=== PATIENT | female | born 1985 | race Caucasian/White ===

== ENCOUNTER 2020-01-19 09:41 | Emergency (ER) | payer OTHER, SELFPAY ==
--- NOTE | ~2020-01-19 | XR_ITS ---
EXAMINATION: XR ankle RT min 3V DATE: 01/19/2020 10:14 INDICATION: Right ankle pain and swelling. TECHNIQUE: 4 views of right ankle were obtained. COMPARISON: None. FINDINGS: Bone alignment is normal. No fracture. There is mild midfoot osteoarthritis. There are enth esophytes at the posterior and plantar aspects of calcaneal tuberosity. There is heterotopic ossifica tion in the plantar fascia. There is ankle soft tissue swelling. IMPRESSION: 1. No fracture. Reviewed, dictated and finalized at location A. IMPRESSION: 1. No fracture.
[2020-01-19 09:52] VITALS: BP 140/83; PULSE 88; RESP 16; TEMP 36.4; O2SAT 96
--- NOTE | 2020-01-19 10:49 | ED.LOWEXIN ---
HPI - Extremity Injury (Lower) General Chief Complaint: Extremity Injury, Lower Stated Complaint: Ankle hurts/swollen Time Seen by Provider: 01/19/20 10:49 Source: patient History of Present Illness HPI Narrative: Patient presents with right ankle and foot pain. Patient denies any injury. Slight swelling to ankle no numbness or tingling no deformity no open areas noted. Patient does not recall any injury. Patient states is been giving her problems for quite some time. Patient usually takes ibuprofen 800 mg for pain and discomfort but has run out and requests a refill on her ibuprofen. Patient also requests a work note. Related Data Home Medications Medication Instructions Recorded Confirmed aripiprazole [Abilify] 10 mg PO HS 09/21/19 01/19/20 vfzebjbazz-xvvoqgpoyueou-vbky 1 tablet PO Q4H PRN 09/21/19 01/19/20 desvenlafaxine succinate 100 mg PO DAILY 09/21/19 01/19/20 hydroxyzine pamoate 25 mg PO TID PRN 09/21/19 01/19/20 metformin [Glucophage] 850 mg PO BID 09/21/19 01/19/20 metoprolol succinate 50 mg PO HS 09/21/19 01/19/20 norethindrone (contraceptive) 0.35 mg PO HS 09/21/19 01/19/20 ondansetron 4 mg PO QID PRN 09/21/19 01/19/20 spironolactone 50 mg PO DAILY 09/21/19 01/19/20 topiramate 50 mg PO BID 09/21/19 01/19/20 omeprazole DAILY 11/26/19 Allergies Allergy/AdvReac Type Severity Reaction Status Date / Time clindamycin Allergy Mild Hives Verified 11/11/19 18:38 Sulfa (Sulfonamide Allergy Unknown Hives Verified 11/11/19 18:38 Antibiotics) Review of Systems Review of Systems: Narrative: CONSTITUTIONAL: Denies fever, chills, or sweats. EYES: Denies visual changes, redness, or discharge. ENT: Denies rhinorrhea, congestion, sore throat, or otalgia. CARDIOVASCULAR: Denies chest pain, palpitations, or edema. RESPIRATORY: Denies cough or dyspnea. GASTROINTESTINAL: Denies abdominal pain, nausea, vomiting, or diarrhea. GENITOURINARY: Denies dysuria or hematuria. SKIN: Denies rash or itching. MUSCULOSKELETAL: Denies back pain, joint pain, or myalgia. NEUROLOGIC: Denies headache, numbness, or weakness. PSYCHIATRIC: Denies anxiety or depression. [facility] Past Medical History Medical History Anxiety Depression Eczema Elbow fracture, right GERD (gastroesophageal reflux disease) HTN (hypertension) Kidney stones Leg fracture, left Migraine KAYLEE (obstructive sleep apnea) PCOS (polycystic ovarian syndrome) PTSD (post-traumatic stress disorder) Sleep apnea TIA (transient ischemic attack) UTI (urinary tract infection) Wrist fracture, bilateral Surgical History Surgical History H/O laparoscopy History of lithotripsy History of removal of cyst Hx of cholecystectomy Family History Family History Father Diabetes mellitus Hypertension Family history of elevated blood lipids Grandparent Diabetes mellitus Family history of coronary artery disease Mother Hypertension Social History Social History Smoking packs per day: 0.25 Smoking cigarettes per day: 5.0 Years smoked: 4 Smoking pack-years: 1.00 Smoking status: Former smoker Second hand tobacco smoke exposure: No Smoking end date: 11/10/12 Alcohol intake: current Drinks per week: 1 Substance use type: does not use Gender identity (if verbalized by the patient): Female Spiritual care concerns: No Agree to blood products: Yes Comments At time of signature, agree with nursing past medical, surgical, social and family history. There is no relevant family history pertinent to the presenting complaint Exam Narrative: Exam Narrative: GENERAL: Well-appearing, well-nourished, and in no acute distress. HEAD: Normocephalic, atraumatic. EYES: PERRLA and EOMI. ENT: Nares clear, no rhinorrhea or epistaxis. Mucous membranes moist
== END 2020-01-19 11:00 | disposition home or self-care (01) ==
PROVIDERS: Emergency Provider Nurse Practitioner Family
DX: S93.401A Sprain of unspecified ligament of right ankle, initial encounter (principal); S96.911A Strain of unspecified muscle and tendon at ankle and foot level, right foot, initial encounter; X58.XXXA Exposure to other specified factors, initial encounter; M19.071 Primary osteoarthritis, right ankle and foot; F32.9 Major depressive disorder, single episode, unspecified; K21.9 Gastro-esophageal reflux disease without esophagitis; I10 Essential (primary) hypertension; G47.33 Obstructive sleep apnea (adult) (pediatric); E28.2 Polycystic ovarian syndrome; Z86.73 Personal history of transient ischemic attack (TIA), and cerebral infarction without residual deficits
CPT/HCPCS: 73610; 99213; G0463

== ENCOUNTER 2020-02-16 09:25 | Emergency (ER) | payer OTHER, SELFPAY ==
[2020-02-16 09:32] VITALS: BP 174/105; PULSE 100; RESP 20; TEMP 36.6; O2SAT 95
--- NOTE | 2020-02-16 09:54 | ED.URI ---
HPI - URI/Sore Throat General Chief Complaint: Upper Respiratory Infection Stated Complaint: Ear pain Time Seen by Provider: 02/16/20 09:47 Source: patient and RN notes reviewed Mode of arrival: ambulatory Limitations: no limitations History of Present Illness HPI Narrative: Patient presents today complaining of a 3-day history of bilateral ear pain and pressure, headache, congestion. Denies cough or fever. States the symptoms appear few times a year with weather changes. She has been taking an [id number] decongestant, Claritin, and ibuprofen with mild relief. Patient denies any history of hypertension. States she checks her blood pressure at home every day and reports it has been normal. MD elicited complaint: nasal congestion and other (Ear pain) Related Data Home Medications Medication Instructions Recorded Confirmed aripiprazole [Abilify] 10 mg PO HS 09/21/19 02/16/20 yghyolwxbr-rdugksaganzwj-cpft 1 tablet PO Q4H PRN 09/21/19 02/16/20 desvenlafaxine succinate 100 mg PO DAILY 09/21/19 02/16/20 hydroxyzine pamoate 25 mg PO TID PRN 09/21/19 02/16/20 metformin [Glucophage] 850 mg PO BID 09/21/19 02/16/20 metoprolol succinate 50 mg PO HS 09/21/19 02/16/20 norethindrone (contraceptive) 0.35 mg PO HS 09/21/19 02/16/20 spironolactone 50 mg PO DAILY 09/21/19 02/16/20 topiramate 50 mg PO BID 09/21/19 02/16/20 omeprazole 20 mg PO DAILY 11/26/19 02/16/20 Cpap 02/16/20 Allergies Allergy/AdvReac Type Severity Reaction Status Date / Time clindamycin Allergy Mild Hives Verified 02/16/20 09:45 Sulfa (Sulfonamide Allergy Unknown Hives Verified 02/16/20 09:45 Antibiotics) Review of Systems Review of Systems: Narrative: CONSTITUTIONAL: Denies body aches, fever, chills, or sweats. EYES: Denies visual changes, redness, or discharge. ENT: Denies rhinorrhea, sore throat. +Bilateral ear pain and pressure, congestion CARDIOVASCULAR: Denies chest pain, palpitations, or edema. RESPIRATORY: Denies cough or dyspnea. GASTROINTESTINAL: Denies abdominal pain, nausea, vomiting, or diarrhea. GENITOURINARY: Denies dysuria or hematuria. SKIN: Denies rash, itching, or wounds. MUSCULOSKELETAL: Denies back pain, joint pain, or myalgia. NEUROLOGIC: Denies numbness, tingling, or weakness.+Headache PSYCH: Denies depression or anxiety. [facility] Social History Social History Smoking packs per day: 0.25 Smoking cigarettes per day: 5.0 Years smoked: 4 Smoking pack-years: 1.00 Smoking status: Former smoker Second hand tobacco smoke exposure: No Smoking end date: 11/10/12 Alcohol intake: current Drinks per week: 1 Substance use type: does not use Gender identity (if verbalized by the patient): Female Spiritual care concerns: No Agree to blood products: Yes Comments At time of signature, I have reviewed and agree with nursing past medical, surgical, social and family history unless otherwise noted. Please see nursing chart for further information. There is no relevant family history pertinent to the presenting complaint Exam Narrative: Exam Narrative: GENERAL: Well-appearing, Morbidly obese, and in no acute distress. HEAD: Normocephalic, atraumatic. EYES: EOMI. No redness or drainage. Conjunctivae normal. ENT: Mucous membranes pink and moist. Nares clear. No rhinorrhea. TMs normal bilaterallyWith mild bilateral serous effusions. Throat normal. Uvula midline. NECK: Normal AROM. Supple. No lymphadenopathy. CHEST: No respiratory distress. Clear to auscultation. HEART: Regular rate and rhythm. No murmur appreciated. Normal peripheral pulses. EXTREMITIES: Normal range of motion. No edema. SKIN: Warm, dry, no rash. Capillary refill normal. Normal skin turgor. NEURO: No focal deficits. Alert and oriented x3. Gait steady. PSYCH: Normal affect. No signs of depression or anxiety. Course Vital Signs Vital signs: Vital Signs Temperature 98 F 02/16/20 09:
[2020-02-16 10:05] VITALS: BP 170/100; PULSE 100
== END 2020-02-16 10:05 | disposition home or self-care (01) ==
PROVIDERS: Emergency Provider Nurse Practitioner
DX: J06.9 Acute upper respiratory infection, unspecified (principal); H92.03 Otalgia, bilateral; Z87.891 Personal history of nicotine dependence; I10 Essential (primary) hypertension; E28.2 Polycystic ovarian syndrome
CPT/HCPCS: 99211; G0463

== ENCOUNTER 2020-03-13 11:18 | Emergency (ER) | payer OTHER, SELFPAY ==
--- NOTE | ~2020-03-13 | XR_ITS ---
EXAMINATION: XR chest 2V 03/13/2020 12:03 INDICATION: Cough for one month PROCEDURE: 2 view chest COMPARISON: 03/03/2017 FINDINGS: The lungs are clear. The cardiomediastinal silhouette is within normal limits. There are no pleural effusions. There is no pneumothorax suspected. IMPRESSION: 1: NO ACUTE CARDIOPULMONARY DISEASE. Reviewed, dictated and finalized at location A.
[2020-03-13 11:22] VITALS: BP 153/87; PULSE 97; RESP 20; TEMP 36.9; O2SAT 100
--- NOTE | 2020-03-13 11:32 | ED.URI ---
HPI - URI/Sore Throat General Chief Complaint: Upper Respiratory Infection Stated Complaint: ears and cough Time Seen by Provider: 03/13/20 11:35 Source: patient Mode of arrival: ambulatory Limitations: no limitations History of Present Illness HPI Narrative: Angela Duncan is 34 yo female with PMH with diabetes, hypertension, migraine, bipolar disorder, GERD, who returns to [facility] care after being seen here almost a month ago for same complaint of ear pain and cough. Ear pain is described as bilateral; she was given decongestants and Flonase when she was here last time and was seen in between by PCP who gave her Azucena Sandoval Related Data Home Medications Medication Instructions Recorded Confirmed desvenlafaxine succinate 100 mg PO DAILY 09/21/19 03/13/20 hydroxyzine pamoate 25 mg PO TID PRN 09/21/19 03/13/20 metformin [Glucophage] 850 mg PO BID 09/21/19 03/13/20 metoprolol succinate 50 mg PO HS 09/21/19 03/13/20 spironolactone 50 mg PO DAILY 09/21/19 03/13/20 topiramate 50 mg PO BID 09/21/19 03/13/20 omeprazole 20 mg PO DAILY 11/26/19 03/13/20 Cpap HS 02/16/20 aripiprazole 10 mg PO DAILY 03/13/20 03/13/20 norethindrone (contraceptive) 0.35 mg PO DAILY 03/13/20 03/13/20 [Jencycla] Allergies Allergy/AdvReac Type Severity Reaction Status Date / Time clindamycin Allergy Mild Hives Verified 03/13/20 11:44 Sulfa (Sulfonamide Allergy Unknown Hives Verified 03/13/20 11:44 Antibiotics) Review of Systems Review of Systems: Narrative: CONSTITUTIONAL: Denies fever, chills, sweats. EYES: Denies visual changes, redness, discharge. ENT: Denies rhinorrhea, congestion, sore throat, bilateral otalgia. CARDIOVASCULAR: Denies chest pain, palpitations, edema. RESPIRATORY: Denies dyspnea, wheezing, has cough GASTROINTESTINAL: Denies abdominal pain, nausea, vomiting, diarrhea. GENITOURINARY: Denies dysuria, hematuria, abnormal discharge SKIN: Denies rash or itching. NEUROLOGIC: Denies numbness, or focal weakness. PSYCHIATRIC: Denies anxiety or depression. PMFSH Past Medical History Medical History Anxiety Depression Eczema Elbow fracture, right GERD (gastroesophageal reflux disease) HTN (hypertension) Kidney stones Leg fracture, left Migraine KAYLEE (obstructive sleep apnea) PCOS (polycystic ovarian syndrome) PTSD (post-traumatic stress disorder) Sleep apnea TIA (transient ischemic attack) UTI (urinary tract infection) Wrist fracture, bilateral Surgical History Surgical History H/O laparoscopy History of lithotripsy History of removal of cyst Hx of cholecystectomy Family History Family History Father Diabetes mellitus Hypertension Family history of elevated blood lipids Grandparent Diabetes mellitus Family history of coronary artery disease Mother Hypertension Social History Social History Smoking packs per day: 0.25 Smoking cigarettes per day: 5.0 Years smoked: 4 Smoking pack-years: 1.00 Smoking status: Former smoker Second hand tobacco smoke exposure: No Smoking end date: 11/10/12 Alcohol intake: current Drinks per week: 1 Substance use type: does not use Gender identity (if verbalized by the patient): Female Spiritual care concerns: No Agree to blood products: Yes Comments At time of signature, I agree with nursing past medical, surgical, social and family history. There is no relevant family history pertinent to the presenting complaint. Exam Narrative: Exam Narrative: GENERAL: This is a well-nourished, well-developed morbidly obese patient, in mild distress. HEAD: normocephalic, atraumatic. EYES: Sclera clear/white. Vision is grossly intact. EARS: External ears normal, mild TMs normal without perforation. Hearing grossly intact. NOSE: E
== END 2020-03-13 12:38 | disposition home or self-care (01) ==
PROVIDERS: Emergency Provider Nurse Practitioner; PCP Family Medicine
DX: J40 Bronchitis, not specified as acute or chronic (principal); H66.3X3 Other chronic suppurative otitis media, bilateral; E11.9 Type 2 diabetes mellitus without complications; I10 Essential (primary) hypertension; K21.9 Gastro-esophageal reflux disease without esophagitis; G47.33 Obstructive sleep apnea (adult) (pediatric); E28.2 Polycystic ovarian syndrome; Z87.440 Personal history of urinary (tract) infections; Z86.73 Personal history of transient ischemic attack (TIA), and cerebral infarction without residual deficits; F31.9 Bipolar disorder, unspecified; F41.9 Anxiety disorder, unspecified; F43.10 Post-traumatic stress disorder, unspecified; Z87.891 Personal history of nicotine dependence; Z79.84 Long term (current) use of oral hypoglycemic drugs
CPT/HCPCS: 71046; 99213; G0463

== ENCOUNTER 2020-04-29 06:52 | Outpatient (CLI) | payer OTHER, SELFPAY ==
[2020-04-29 07:54] LABS: Alanine Aminotransferase 38 U/L (4-35); Albumin Level 4.1 g/dL (3.5-5.1); Alkaline Phosphatase 105 U/L (38-126); Aspartate Amino Transferase 38 U/L (14-36); Bilirubin,Total 0.8 mg/dL (0.2-1.3); Blood Urea Nitrogen 8 mg/dL (7-17); Calcium 8.6 mg/dL (8.4-10.2); Carbon Dioxide 27 mmol/L (22-30); Chloride 102 mmol/L (98-107); Cholesterol 160 mg/dL (0-200); Estimated Glomerular Filt Rate > 60; Glucose 361 mg/dL (65-105); HDL Direct 33 mg/dL; Potassium 3.8 mmol/L (3.4-5.0); Sodium 137 mmol/L (137-145); Triglycerides 117 mg/dL (<150)
[2020-04-29 08:00] LABS: Hemoglobin A1C 12.2 % (<5.7)
[2020-04-29 08:05] LABS: LDL Cholesterol Direct 112 mg/dL
[2020-04-29 08:50] LABS: Free T4 Free Thyroxine 1.19 ng/mL (0.78-2.19)
== END 2020-04-29 06:53 | disposition home or self-care (01) ==
LOC: ANHLAB 06:54
PROVIDERS: PCP Family Medicine; Visit Provider Physician Assistant
DX: R53.83 Other fatigue (principal); E28.2 Polycystic ovarian syndrome; Z13.1 Encounter for screening for diabetes mellitus; Z13.220 Encounter for screening for lipoid disorders
CPT/HCPCS: 36415; 80053; 80061; 83036; 84439; 84443

== ENCOUNTER 2020-08-08 08:02 | Outpatient (CLI) | payer OTHER, SELFPAY ==
[2020-08-08 19:24] LABS: SARS-CoV-2 RNA PCR Negative
== END 2020-08-08 08:03 | disposition home or self-care (01) ==
LOC: ANHCOVIDDT 08:03
PROVIDERS: PCP Family Medicine; Visit Provider Internal Medicine Critical Care Medicine
DX: Z01.812 Encounter for preprocedural laboratory examination (principal); Z20.828 Contact with and (suspected) exposure to other viral communicable diseases
CPT/HCPCS: 87635; C9803; U0003

== ENCOUNTER 2020-08-10 07:24 | Outpatient (CLI) | payer OTHER, SELFPAY ==
--- NOTE | 2020-09-04 22:41 | SLEEP_ITS ---
CPAP TITRATION DATE OF STUDY: 08/10/2020 ORDERING PHYSICIAN: SHAYLA Salas. REASON FOR THE STUDY: KAYLEE. HISTORY: This patient is a 34-year-old female, 67 inches tall, weighing 384 pounds with a body mass index of 60.1. Her neck circumference is 20 inches. On 06/29/2016, she had a split night study, which showed severe obstructive sleep apnea syndrome with a CPAP titration with an optimal setting for resolution of obstructive breathing and snoring at 14 cm. She currently reports that she has been gasping for air while sleeping, she frequently snores and it is loud enough that others complain about it. She frequently awakens at night with heartburn, belching, or coughing. She frequently wakes from sleep feeling short of breath. She frequently has trouble sleeping with a cold, constantly wakes up gasping for breath at night, frequently has breathing problems at night observed by others. She constantly sweats excessively at night. She frequently notices her heart pounding or beating irregularly at night. She occasionally falls asleep during the day, frequently involuntarily. She does not fall asleep while driving or during physical effort. She frequently has loss of muscle tone with strong emotion. She occasionally has daytime difficulties due to excessive sleepiness. She occasionally feels paralyzed on waking or falling asleep and frequently has vivid dreamlike scenes upon awakening or falling asleep. She occasionally is afraid to go to sleep, occasionally has nightmares, occasionally remembers her dreams, has racing thoughts, occasionally has feelings of sadness, depression and anxiety, occasionally has muscular tension. She frequently notices parts of her body jerking. She occasionally kicks at night. She frequently has crawly achy feelings in her legs, leg pain at night, frequently has morning jaw pain. She occasionally grinds her teeth during sleep. She occasionally is bothered by pain during the day and is awakened by pain at night. She frequently wakes up feeling stiff in the morning with sore achy muscles and pain in the neck and spine. She has dizziness, headaches, bowel disturbances and insomnia. Normal bedtime is between 8:00 p.m. and 9:00 p.m., taking an hour to fall asleep, typically waking 3-5 times at night for 30 minutes. While awake, she will go to the bathroom. She frequently wakes up gasping for breath. Morning wake-up time is 4:30 a.m. during the week. On the weekends, bedtime is the same 8:00-9:00 p.m. and she wakes at 6:00 In the morning. She estimates 6 hours of sleep at night. She has poor social life due to excessive sleepiness. She has loss of libido. She does not usually take naps. A short nap may be refreshing. She usually drowsy in the morning for 2 hours or longer. MEDICAL COMORBIDITIES: 1. Anxiety. 2. Depression. 3. PTSD. 4. Corneal dystrophy. 5. Gastroesophageal reflux disease. 6. Diarrhea. 7. Kidney stones. 8. PCOS. 9. Arthritis. 10. Diabetes mellitus. 11. Obstructive sleep apnea syndrome. 12. TIA. MEDICATIONS: 1. Omeprazole 20 mg a day. 2. Metformin at 1000 mg b.i.d. 3. Ibuprofen 800 mg t.i.d. p.r.n. pain. 4. vitamin 1 daily. 5. Metoprolol ER 50 mg daily. 6. Pristiq 100 mg daily. 7. Topiramate 50 mg b.i.d. 8. Hydroxyzine HCL 25 mg t.i.d. p.r.n. 9. Spironolactone 50 mg a day. 10. Aripiprazole 20 mg a day. 11. Victoza 18 mg per 3 mL, inject 1.2 mg subcutaneously daily. 12. Lantus 35 units subcutaneously daily. 13. Ubrelvy 100 mg onset of headache. HABITS: Used to smoke tobacco. Caffeine, 1 daily. Alcohol is socially. No recreational drugs. DESCRIPTION OF THE STUDY: On the Bern Sleepiness Scale, her score is 13. This was conducted as a full night CPAP titration
== END 2020-08-10 07:25 | disposition home or self-care (01) ==
LOC: ANHCSM 07:27
PROVIDERS: PCP Family Medicine; Visit Provider Physician Assistant
DX: G47.33 Obstructive sleep apnea (adult) (pediatric) (principal)
CPT/HCPCS: 95811

== ENCOUNTER 2020-08-11 06:50 | Outpatient (CLI) | payer OTHER, SELFPAY ==
[2020-08-11 08:26] LABS: Alanine Aminotransferase 41 U/L (4-35); Albumin Level 4.2 g/dL (3.5-5.1); Alkaline Phosphatase 57 U/L (38-126); Anion Gap 11 mmol/L (8-16); Aspartate Amino Transferase 41 U/L (14-36); Blood Urea Nitrogen 9 mg/dL (7-17); Calcium 8.9 mg/dL (8.4-10.2); Carbon Dioxide 27 mmol/L (22-30); Chloride 105 mmol/L (98-107); Estimated Glomerular Filt Rate > 60; Glucose 126 mg/dL (65-105); Potassium 3.7 mmol/L (3.4-5.0); Sodium 143 mmol/L (137-145)
[2020-08-11 08:38] LABS: Hemoglobin A1C 7.1 % (<5.7)
== END 2020-08-11 06:51 | disposition home or self-care (01) ==
PROVIDERS: PCP Family Medicine; Visit Provider Family Medicine
DX: E11.9 Type 2 diabetes mellitus without complications (principal)
CPT/HCPCS: 36415; 80053; 83036

== ENCOUNTER 2020-08-22 13:53 | Outpatient (RCR) | payer OTHER, SELFPAY ==
[2020-08-22 13:59] VITALS: BMI 58.9
[2020-08-22 14:02] VITALS: BMI 58.9
== END 2020-11-06 15:59 | disposition home or self-care (01) ==
LOC: ANHDMC 13:53
PROVIDERS: PCP Family Medicine; Visit Provider Family Medicine
DX: E11.9 Type 2 diabetes mellitus without complications (principal); Z71.3 Dietary counseling and surveillance
CPT/HCPCS: 97802

== ENCOUNTER 2020-10-14 08:14 | Emergency (ER) | payer OTHER, SELFPAY ==
[2020-10-14] VITALS (17 sets, daily range): BP systolic 117–148; BP diastolic 76–99; PULSE 95–113; RESP 17–29; TEMP 36.4; O2SAT 94–98
--- NOTE | ~2020-10-14 | XR_ITS ---
XR chest 1V portable 10/14/2020 09:19 Indication: Shortness of breath and chest pain Procedure: AP portable chest Comparison: 03/13/2020 Findings: Bibasilar airspace disease. Heart size normal. No focal pneumonia, edema, pleural effusion or pneumothorax. No acute osseous abnormality. Impression: 1: Bibasilar airspace disease may represent atelectasis or developing pneumonia. Reviewed, dictated and finalized at location A. [employer] Impression: 1: Bibasilar airspace disease may represent atelectasis or developing pneumonia .
--- NOTE | 2020-10-14 08:49 | ECG_ITS ---
Measurements Intervals [place] Rate: 106 P: 19 LA: 126 QRS: 44 QRSD: 94 T: 63 QT: 305 QTc: 406 Interpretive Statements SINUS TACHYCARDIA EARLY PRECORDIAL R/S TRANSITION NONSPECIFIC ST & T-WAVE ABNORMALITY- DIFFUSE LEADS ABNORMAL ECG Electronically Signed On 10-14-2020 10:42:38 INTERTYPE OPERATOR by Yovany Horowitz D.O.
[2020-10-14 09:08] LABS: Base Excess ABG -1.3 mEq/l (+/-2.0); Device ROOM AIR; Fractional Inspired Oxygen 21 %; HCO3 ABG 22.9 mEq/l (22.0-26.0); Modified Allen's Test Pass; Oxygen Content ABG 20.2 %vol (16.0-22.0); Oxygen Saturation ABG 96.6 % (95.0-100.0); Oxyhemoglobin 95.5 % THb (90.0-100.0); PCO2 ABG 37.2 mmHg (35.0-45.0); PO2 ABG 86.2 mmHg (80.0-100.0); Site Drawn RIGHT RADIAL; pH ABG 7.407 (7.350-7.450)
[2020-10-14 09:23] LABS: Basophils Percent Auto 0.2 % (0.2-1.2); Eosinophils Percent Auto 0.2 % (0-4.4); Hematocrit 47.1 % (37.0-47.0); Hemoglobin 15.2 g/dL (12.0-15.0); Immature Granulocyte Absolute 0.02 K/mm3 (0.00-0.031); Immature Granulocyte Percent A 0.4 % (0-0.5); Lymphocytes Absolute Auto 1.81 K/mm3 (0.9-3.2); Lymphocytes Percent Auto 34.7 % (18.3-44.2); Mean Corpuscular HGB Conc 32.3 g/dl (32-36); Mean Corpuscular Hemoglobin 29.2 pg (26-34); Mean Corpuscular Volume 90.4 fl (80-100); Mean Platelet Volume 10.7 fl (7.4-10.4); Monocytes Absolute Auto 0.6 K/mm3 (0.1-0.6); Monocytes Percent Auto 12.3 % (2.6-8.5); Neutrophils Absolute Auto 2.7 K/mm3 (1.3-6.7); Neutrophils Percent Auto 52.2 % (45.5-73.1); Platelet Count Result 163 k/mm3 (150-375); Red Blood Count 5.21 M/mm3 (4.2-5.4); Red Cell Distribution Width 13.4 % (11.5-14.5); White Blood Count 5.2 K/mm3 (4.5-10.0)
[2020-10-14 09:36] LABS: Prothrombin Time 13.5 Seconds (11.1-14.7)
[2020-10-14 09:37] LABS: Partial Thromboplastin Time 30.1 SECONDS (22.3-36.8)
[2020-10-14 09:39] LABS: D Dimer 0.28 ug/mL (<0.48)
[2020-10-14 09:45] LABS: Lactic Acid Reflex 1.9 mmol/L (0.7-2.1)
[2020-10-14 09:46] LABS: Glucose Point of Care 224 (65-105)
--- NOTE | 2020-10-14 09:47 | ED.SOB ---
HPI - SOB/Dyspnea General Chief Complaint: Shortness of Breath/Dyspnea Stated Complaint: covid +, sob Time Seen by Provider: 10/14/20 08:30 Source: patient Mode of arrival: ambulatory Limitations: no limitations History of Present Illness HPI Narrative: This patient is a 34 year old morbidly obese female with history of DM, HTN, migraines who presents for evaluation of shortness of breath and chest pain. She developed symptoms of covid 1 week ago, and she was diagnosed on Friday. She reports cough, body aches, sore throat , and intermittent sharp chest pain. She reports left lower chest pain since her diagnosis that has worsened in past day. She also reports increasing shortness of breath with exertion. She denies fever or chills. MD elicited complaint: shortness of breath Related Data Home Medications Medication Instructions Recorded Confirmed hydroxyzine pamoate 25 mg PO TID PRN 09/21/19 08/16/20 spironolactone 50 mg PO DAILY 09/21/19 08/16/20 Cpap HS 02/16/20 08/16/20 norethindrone (contraceptive) 0.35 mg PO DAILY 03/13/20 08/16/20 [Jencycla] aripiprazole 20 mg tablet 20 mg PO DAILY 07/18/20 08/16/20 desvenlafaxine succinate 100 mg 100 mg PO DAILY 07/18/20 08/16/20 tablet,extended release 24 hr ubrogepant 100 mg tablet 100 mg PO ONCE 07/18/20 08/16/20 insulin glargine [Lantus Solostar SUBCUT 10/14/20 U-100 Insulin] onabotulinumtoxinA [Botox] 10/14/20 ondansetron HCl 10/14/20 10/14/20 Allergies Allergy/AdvReac Type Severity Reaction Status Date / Time clindamycin Allergy Mild Hives Verified 10/14/20 08:33 Sulfa (Sulfonamide Allergy Unknown Hives Verified 10/14/20 08:33 Antibiotics) Review of Systems Review of Systems: All systems reviewed & are unremarkable except as noted in HPI and below Constitutional: Constitutional: Reports fatigue ENT: Reports nasal congestion and Reports sore throat Cardiovascular: Cardiovascular: Reports chest pain and Denies radiating jaw, neck or arm pain Respiratory: Respiratory: Reports cough and Reports dyspnea Gastrointestinal: Gastrointestinal: Denies abdominal pain, Denies diarrhea and Denies nausea PMFSH Past Medical History Medical History Anxiety Depression Diabetes mellitus Eczema Elbow fracture, right GERD (gastroesophageal reflux disease) GERD (gastroesophageal reflux disease) Hyperlipidemia associated with type 2 diabetes mellitus Kidney stones Leg fracture, left Migraine KAYLEE (obstructive sleep apnea) PCOS (polycystic ovarian syndrome) PTSD (post-traumatic stress disorder) Sleep apnea TIA (transient ischemic attack) Ureter obstruction Urinary tract infection UTI (urinary tract infection) Wrist fracture, bilateral Surgical History Surgical History H/O laparoscopy History of lithotripsy History of removal of cyst Hx of cholecystectomy Family History Family History Father Diabetes mellitus Hypertension Family history of elevated blood lipids Grandparent Diabetes mellitus Family history of coronary artery disease Mother Hypertension Social History Social History Smoking packs per day: 0.25 Smoking cigarettes per day: 5.0 Years smoked: 4 Smoking pack-years: 1.00 Smoking status: Never smoker Second hand tobacco smoke exposure: No Smoking end date: 11/10/12 Alcohol intake: current Drinks per week: 1 Substance use type: does not use Gender identity (if verbalized by the patient): Female Spiritual care concerns: No Agree to blood products: Yes Exam Const: General: no acute distress and alert Nutritional Appearance: obese Orientation/consciousness: patient oriented x3 HENMT: Head: normocephalic and atraumatic Face and sinus: face symmetric Eyes: EOM: EOMs intact bilate
[2020-10-14 09:48] LABS: Alanine Aminotransferase 42 U/L (4-35); Albumin Level 3.9 g/dL (3.5-5.1); Alkaline Phosphatase 50 U/L (38-126); Anion Gap 9 mmol/L (8-16); Aspartate Amino Transferase 50 U/L (14-36); Bilirubin,Total 0.7 mg/dL (0.2-1.3); Blood Urea Nitrogen 8 mg/dL (7-17); CRP 1.5 mg/dL (<1.0); Calcium 8.5 mg/dL (8.4-10.2); Carbon Dioxide 25 mmol/L (22-30); Chloride 106 mmol/L (98-107); Estimated CRCL calculation 158 ml/min; Estimated Glomerular Filt Rate > 60; Glucose 248 mg/dL (65-105); Potassium 3.4 mmol/L (3.4-5.0); Sodium 140 mmol/L (137-145)
[2020-10-14 09:57] LABS: NT Pro B Type Natriuretic Pept 30 PG/ML (5-100); Troponin I < 0.012 ng/mL (0.000-0.034)
== END 2020-10-14 11:58 | disposition home or self-care (01) ==
PROVIDERS: Emergency Provider General Practice; PCP Family Medicine
DX: U07.1 COVID-19 (principal); J12.89 Other viral pneumonia; E11.9 Type 2 diabetes mellitus without complications; I10 Essential (primary) hypertension; E66.01 Morbid (severe) obesity due to excess calories; Z68.43 Body mass index [BMI] 50.0-59.9, adult; Z79.4 Long term (current) use of insulin; K21.9 Gastro-esophageal reflux disease without esophagitis; E78.5 Hyperlipidemia, unspecified; Z87.442 Personal history of urinary calculi; G47.33 Obstructive sleep apnea (adult) (pediatric); E28.2 Polycystic ovarian syndrome; G47.30 Sleep apnea, unspecified; Z86.73 Personal history of transient ischemic attack (TIA), and cerebral infarction without residual deficits; Z87.440 Personal history of urinary (tract) infections; Z87.891 Personal history of nicotine dependence
CPT/HCPCS: 36415; 36600; 71045; 80053; 81025; 82728; 82805; 82948; 83605; 83880; 84484; 85025; 85380; 85610; 85730; 86140; 87040; 93005; 99284

== ENCOUNTER 2020-11-04 13:24 | Outpatient (CLI) | payer OTHER, SELFPAY ==
--- NOTE | ~2020-11-04 | XR_ITS ---
EXAMINATION: XR chest 2V 11/04/2020 13:34 INDICATION: Covid19 follow-up PROCEDURE: 2 view chest COMPARISON: Comparison to multiple prior studies sequentially, with oldest reviewed study dated 10/11. FINDINGS: The lungs are clear. The cardiomediastinal silhouette is within normal limits. There are no pleural effusions. There is no pneumothorax suspected. IMPRESSION: 1: NO ACUTE CARDIOPULMONARY DISEASE. Reviewed, dictated and finalized at location A. LTY TWISTER TENDER
== END 2020-11-04 13:25 | disposition home or self-care (01) ==
PROVIDERS: PCP Family Medicine; Visit Provider Physician Assistant
DX: U07.1 COVID-19 (principal); J12.89 Other viral pneumonia
CPT/HCPCS: 71046

== ENCOUNTER 2020-11-08 10:28 | Emergency (ER) | payer OTHER, SELFPAY ==
[2020-11-08 10:36] VITALS: BP 159/67; PULSE 101; RESP 20; TEMP 36.3; O2SAT 98
--- NOTE | 2020-11-08 10:56 | ED.URI ---
HPI - URI/Sore Throat General Chief Complaint: Upper Respiratory Infection Stated Complaint: Sore Throat/Ear Pain Time Seen by Provider: 11/08/20 10:56 Source: patient Mode of arrival: ambulatory Limitations: no limitations History of Present Illness HPI Narrative: Angela Duncan is 34 yo female with a PMH of DM, high cholesterol, migraine, sleep apnea, comes here with complaints of sore throat and bilateral ear pain and rates the pain as 10 out of 10. She was Covid positive just before and was seen at the very beginning of October and the [facility] for Covid pneumonia was given albuterol and steroids at that time and has residual cough from that experience Related Data Home Medications Medication Instructions Recorded Confirmed hydroxyzine pamoate 25 mg PO TID PRN 09/21/19 11/08/20 spironolactone 50 mg PO DAILY 09/21/19 11/08/20 norethindrone (contraceptive) 0.35 mg PO DAILY 03/13/20 11/08/20 [Jencycla] aripiprazole 20 mg tablet 20 mg PO DAILY 07/18/20 11/08/20 desvenlafaxine succinate 100 mg 100 mg PO DAILY 07/18/20 11/08/20 tablet,extended release 24 hr ubrogepant 100 mg tablet 100 mg PO ONCE 07/18/20 11/08/20 onabotulinumtoxinA [Botox] 200 unit INTRADERMAL [id number] 10/14/20 Allergies Allergy/AdvReac Type Severity Reaction Status Date / Time clindamycin Allergy Mild Hives Verified 11/08/20 10:51 Sulfa (Sulfonamide Allergy Unknown Hives Verified 11/08/20 10:51 Antibiotics) Review of Systems Review of Systems: Narrative: CONSTITUTIONAL: Denies fever, chills, sweats. EYES: Denies visual changes, redness, discharge. ENT: Denies rhinorrhea, congestion, has sore throat, has otalgia. CARDIOVASCULAR: Denies chest pain, palpitations, edema. RESPIRATORY: Denies dyspnea, wheezing, cough GASTROINTESTINAL: Denies abdominal pain, nausea, vomiting, diarrhea. GENITOURINARY: Denies dysuria, hematuria, abnormal discharge SKIN: Denies rash or itching. NEUROLOGIC: Denies numbness, or focal weakness. PSYCHIATRIC: Denies anxiety or depression. [facility] Past Medical History Medical History Anxiety Depression Diabetes mellitus Eczema Elbow fracture, right GERD (gastroesophageal reflux disease) GERD (gastroesophageal reflux disease) Hyperlipidemia associated with type 2 diabetes mellitus Kidney stones Leg fracture, left Migraine KAYLEE (obstructive sleep apnea) PCOS (polycystic ovarian syndrome) PTSD (post-traumatic stress disorder) Sleep apnea TIA (transient ischemic attack) Ureter obstruction Urinary tract infection UTI (urinary tract infection) Wrist fracture, bilateral Surgical History Surgical History H/O laparoscopy History of lithotripsy History of removal of cyst Hx of cholecystectomy Family History Family History Father Diabetes mellitus Hypertension Family history of elevated blood lipids Grandparent Diabetes mellitus Family history of coronary artery disease Mother Hypertension Social History Social History (Updated 11/08/20 @ 11:01 by Sarah Bruce CNP) Smoking packs per day: 0.25 Smoking cigarettes per day: 5.0 Years smoked: 4 Smoking pack-years: 1.00 Smoking status: Former smoker Second hand tobacco smoke exposure: No Smoking end date: 11/10/12 Alcohol intake: current Drinks per week: 1 Substance use type: does not use Gender identity (if verbalized by the patient): Female Spiritual care concerns: No Agree to blood products: Yes Comments At time of signature, I agree with nursing past medical, surgical, social and family history. There is no relevant family history pertinent to the presenting complaint. Exam Narrative: Exam Narrative: GENERAL: This is a well-nourished, well-developed patient, in mild distress. HEAD: normocephalic, atraumatic. EYES: Sclera clear/whi
== END 2020-11-08 11:24 | disposition home or self-care (01) ==
PROVIDERS: Emergency Provider Nurse Practitioner; PCP Family Medicine
DX: J02.9 Acute pharyngitis, unspecified (principal); H66.93 Otitis media, unspecified, bilateral; Z87.891 Personal history of nicotine dependence; E11.9 Type 2 diabetes mellitus without complications; K21.9 Gastro-esophageal reflux disease without esophagitis; E78.5 Hyperlipidemia, unspecified; E28.2 Polycystic ovarian syndrome; Z86.73 Personal history of transient ischemic attack (TIA), and cerebral infarction without residual deficits; Z86.19 Personal history of other infectious and parasitic diseases
CPT/HCPCS: 87081; 87804; 87880; 99213; G0463

== ENCOUNTER 2020-11-13 08:30 | Emergency (ER) | payer OTHER, SELFPAY ==
[2020-11-13 08:40] VITALS: BP 128/75; PULSE 91; RESP 20; TEMP 36.2; O2SAT 98
--- NOTE | 2020-11-13 08:41 | ED.GENADULT ---
HPI - General Adult General Chief complaint: Upper Respiratory Infection Stated complaint: hurts to cough/body pains Time Seen by Provider: 11/13/20 08:41 Source: patient Mode of arrival: ambulatory Limitations: no limitations History of Present Illness HPI narrative: 34-year-old female patient presents to the [facility] with complaints of a worsening cough. Patient states she was diagnosed with Covid back in September around [facility]. Patient states since then she has also been diagnosed with pneumonia and treated with that with antibiotics and steroids. Patient states she was seen here this past Friday was given an antibiotic for possible sinus infection. Patient states she has been using [id number] Robitussin as well as her inhaler for her cough but states that it is getting worse and states is causing her not to be able to sleep at night. Patient denies any current chest pain or shortness of breath. Patient does complain about some soreness especially when she coughs to the chest area. Denies any fevers, body aches or chills. Patient states most of her symptoms are gone except for this lingering cough. Related Data Home Medications Medication Instructions Recorded Confirmed hydroxyzine pamoate 25 mg PO TID PRN 09/21/19 11/08/20 spironolactone 50 mg PO DAILY 09/21/19 11/08/20 norethindrone (contraceptive) 0.35 mg PO DAILY 03/13/20 11/08/20 [Jencycla] aripiprazole 20 mg tablet 20 mg PO DAILY 07/18/20 11/08/20 desvenlafaxine succinate 100 mg 100 mg PO DAILY 07/18/20 11/08/20 tablet,extended release 24 hr ubrogepant 100 mg tablet 100 mg PO ONCE 07/18/20 11/08/20 onabotulinumtoxinA [Botox] 200 unit INTRADERMAL [id number] 10/14/20 Allergies Allergy/AdvReac Type Severity Reaction Status Date / Time clindamycin Allergy Mild Hives Verified 11/08/20 10:51 Sulfa (Sulfonamide Allergy Unknown Hives Verified 11/08/20 10:51 Antibiotics) Review of Systems Review of Systems: Narrative: CONSTITUTIONAL: Denies fever, chills, or sweats. EYES: Denies visual changes, redness, or discharge. ENT: Denies rhinorrhea, congestion, sore throat, or otalgia. CARDIOVASCULAR: Denies chest pain, palpitations, or edema. RESPIRATORY: Positive cough, denies any current dyspnea. GASTROINTESTINAL: Denies abdominal pain, nausea, vomiting, or diarrhea. GENITOURINARY: Denies dysuria or hematuria. SKIN: Denies rash or itching. MUSCULOSKELETAL: Denies back pain, joint pain, or myalgia. NEUROLOGIC: Denies headache, numbness, or weakness. PSYCHIATRIC: Denies anxiety or depression. [facility] Past Medical History Medical History Anxiety Depression Diabetes mellitus Eczema Elbow fracture, right GERD (gastroesophageal reflux disease) GERD (gastroesophageal reflux disease) Hyperlipidemia associated with type 2 diabetes mellitus Kidney stones Leg fracture, left Migraine KAYLEE (obstructive sleep apnea) PCOS (polycystic ovarian syndrome) PTSD (post-traumatic stress disorder) Sleep apnea TIA (transient ischemic attack) Ureter obstruction Urinary tract infection UTI (urinary tract infection) Wrist fracture, bilateral Surgical History Surgical History H/O laparoscopy History of lithotripsy History of removal of cyst Hx of cholecystectomy Family History Family History Father Diabetes mellitus Hypertension Family history of elevated blood lipids Grandparent Diabetes mellitus Family history of coronary artery disease Mother Hypertension Social History Social History Smoking packs per day: 0.25 Smoking cigarettes per day: 5.0 Years smoked: 4 Smoking pack-years: 1.00 Smoking status: Former smoker Second hand tobacco smoke exposure: No Smoking end date: 11/10/12 Alcohol intake: current Drinks per week
== END 2020-11-13 09:14 | disposition home or self-care (01) ==
PROVIDERS: Emergency Provider Nurse Practitioner Family; PCP Family Medicine
DX: J20.8 Acute bronchitis due to other specified organisms (principal); B94.8 Sequelae of other specified infectious and parasitic diseases; F17.210 Nicotine dependence, cigarettes, uncomplicated; E11.9 Type 2 diabetes mellitus without complications; K21.9 Gastro-esophageal reflux disease without esophagitis; Z86.73 Personal history of transient ischemic attack (TIA), and cerebral infarction without residual deficits; E78.5 Hyperlipidemia, unspecified; E28.2 Polycystic ovarian syndrome
CPT/HCPCS: 99213; G0463

== ENCOUNTER 2020-11-17 12:39 | Outpatient (CLI) | payer OTHER, SELFPAY ==
--- NOTE | ~2020-11-17 | CT_ITS ---
EXAMINATION: CTA chest PE protocol DATE: 11/17/2020 13:11 INDICATION: Shortness of breath and cough. TECHNIQUE: Computed tomography angiography (CTA) of the chest was performed with 100 mL Omnipaque-350 intravenous contrast timed to evaluate the pulmonary arteries. Coronal maximum intensity projection 3D-reconstructions were created by the technologist. Automated exposure control and iterative reconst ruction technique were employed. The dose-length product was 1065.82 mGy-cm. COMPARISON: CT abdomen and pelvis 11/11/2019 FINDINGS: The lungs demonstrate mild atelectasis. No pleural effusion. The heart size is normal. No p ericardial effusion. There is no pulmonary embolus. There is diffuse hepatic steatosis. There is mild thoracic spondylosis. IMPRESSION: 1. No pulmonary embolus. Reviewed, dictated and finalized at location A. CIPAL PRODUCT MANAGER IMPRESSION: 1. No pulmonary embolus.
== END 2020-11-17 12:40 | disposition home or self-care (01) ==
PROVIDERS: PCP Family Medicine; Visit Provider Family Medicine
DX: R07.81 Pleurodynia (principal); R06.00 Dyspnea, unspecified
CPT/HCPCS: 71275; Q9967

== ENCOUNTER 2021-01-08 07:41 | Emergency (ER) | payer OTHER, SELFPAY ==
[2021-01-08] VITALS (21 sets, daily range): BP systolic 124–144; BP diastolic 70–95; PULSE 78–109; RESP 16–22; TEMP 36; O2SAT 98–100
--- NOTE | 2021-01-08 08:25 | ED.HA ---
HPI - Headache General Chief Complaint: Headache Stated Complaint: headache, nausea Time Seen by Provider: 01/08/21 07:57 Source: patient Mode of arrival: ambulatory Limitations: no limitations History of Present Illness HPI Narrative: This is a 35 year old female with history of migraine headache, morbid obesity who presents for evaluation of a headache. She developed left frontal migraine headache on . She states her headache has been constant and she describes it as throbbing. This is typical of her headaches. She has been taking Topamax for her headache. She has not taken any medication for her acute symptoms. She has associated nausea but no vomiting. She denies fever or chills. She reports mild blurred vision but that is normal for her headache. She has pain that occasionally radiates to left posterior head and this is typical as well. She rates her pain 9/10. MD elicited complaint: migraine Related Data Home Medications Medication Instructions Recorded Confirmed hydroxyzine pamoate 25 mg PO TID PRN 09/21/19 01/03/21 spironolactone 50 mg PO DAILY 09/21/19 01/03/21 norethindrone (contraceptive) 0.35 mg PO DAILY 03/13/20 01/03/21 [Jencycla] aripiprazole 20 mg tablet 20 mg PO DAILY 07/18/20 01/03/21 desvenlafaxine succinate 100 mg 100 mg PO DAILY 07/18/20 01/03/21 tablet,extended release 24 hr ubrogepant 100 mg tablet 100 mg PO ONCE 07/18/20 01/03/21 onabotulinumtoxinA [Botox] 200 unit INTRADERMAL [id number] 10/14/20 01/03/21 Allergies Allergy/AdvReac Type Severity Reaction Status Date / Time clindamycin Allergy Mild Hives Verified 01/08/21 08:17 Sulfa (Sulfonamide Allergy Unknown Hives Verified 01/08/21 08:17 Antibiotics) Review of Systems Review of Systems: All systems reviewed & are unremarkable except as noted in HPI and below Constitutional: Constitutional: Denies chills and Denies fever(s) Gastrointestinal: Gastrointestinal: Reports nausea Neurologic: Reports headache(s) PMFSH Past Medical History Medical History Anxiety Depression Diabetes mellitus Eczema Elbow fracture, right GERD (gastroesophageal reflux disease) GERD (gastroesophageal reflux disease) Hyperlipidemia associated with type 2 diabetes mellitus Kidney stones Leg fracture, left Migraine KAYLEE (obstructive sleep apnea) PCOS (polycystic ovarian syndrome) PTSD (post-traumatic stress disorder) Sleep apnea TIA (transient ischemic attack) Ureter obstruction Urinary tract infection UTI (urinary tract infection) Wrist fracture, bilateral Surgical History Surgical History H/O laparoscopy History of lithotripsy History of removal of cyst Hx of cholecystectomy Family History Family History Father Diabetes mellitus Hypertension Family history of elevated blood lipids Grandparent Diabetes mellitus Family history of coronary artery disease Mother Hypertension Social History Social History Smoking packs per day: 0.25 Smoking cigarettes per day: 5.0 Years smoked: 4 Smoking pack-years: 1.00 Second hand tobacco smoke exposure: No Smoking end date: 11/10/12 Alcohol intake: current Drinks per week: 1 Substance use type: does not use Gender identity (if verbalized by the patient): Female Spiritual care concerns: No Agree to blood products: Yes Exam Const: General: no acute distress and alert Nutritional Appearance: obese Orientation/consciousness: patient oriented x3 Eyes: Pupils: Equal, round and reactive pupils present EOM: EOMs intact bilaterally Resp: Effort & Inspection: normal respiratory effort and no retractions Auscultation: clear to auscultation bilaterally Cardio: Rate: regular rate Rhythm: regular rhythm Heart sounds: no murmu
[2021-01-08] MEDS: KETOROLAC 30 MG/ML VIAL (*BKC) IV PUSH (08:41)
[2021-01-08] MEDS: diphenhydrAMINE HCl INJ 50 MG/ML VIAL 25 MG IV PUSH (08:41)
[2021-01-08] MEDS: LACTATED RINGERS 1,000 ML 999 ML IV CONT ×2 (08:42→09:54)
[2021-01-08] MEDS: METOCLOPRAMIDE HCL INJ 10 MG/2 ML VIAL IV PUSH (08:42)
[2021-01-08] MEDS: ONDANSETRON INJ 4 MG/2 ML VIAL 8 MG IV PUSH (09:56)
[2021-01-08 10:26] LABS: Glucose Point of Care 412 (65-105)
[2021-01-08 11:40] LABS: Fractional Inspired Oxygen 21 %; HCO3 VBG 23.9 mEq/l (24.0-30.0); PCO2 VBG 45.7 mmHg (42.0-48.0); PO2 VBG 103.5 mmHg (35.0-45.0); pH VBG 7.336 (7.300-7.400)
[2021-01-08 12:39] LABS: Basophils Percent Auto 0.3 % (0.2-1.2); Eosinophils Absolute Auto 0.2 K/mm3 (0-0.3); Eosinophils Percent Auto 1.2 % (0-4.4); Hematocrit 43.7 % (37.0-47.0); Hemoglobin 14.2 g/dL (12.0-15.0); Immature Granulocyte Absolute 0.07 K/mm3 (0.00-0.031); Immature Granulocyte Percent A 0.6 % (0-0.5); Lymphocytes Absolute Auto 2.97 K/mm3 (0.9-3.2); Mean Corpuscular HGB Conc 32.5 g/dl (32-36); Mean Corpuscular Volume 92.4 fl (80-100); Mean Platelet Volume 11.2 fl (7.4-10.4); Monocytes Absolute Auto 1.2 K/mm3 (0.1-0.6); Monocytes Percent Auto 9.4 % (2.6-8.5); Neutrophils Percent Auto 64.5 % (45.5-73.1); Platelet Count Result 217 k/mm3 (150-375); Red Blood Count 4.73 M/mm3 (4.2-5.4); Red Cell Distribution Width 13.2 % (11.5-14.5); White Blood Count 12.4 K/mm3 (4.5-10.0)
[2021-01-08 12:52] LABS: Alanine Aminotransferase 67 U/L (4-35); Albumin Level 3.6 g/dL (3.5-5.1); Alkaline Phosphatase 55 U/L (38-126); Anion Gap 4 mmol/L (8-16); Aspartate Amino Transferase 78 U/L (14-36); Bilirubin,Total 0.7 mg/dL (0.2-1.3); Blood Urea Nitrogen 11 mg/dL (7-17); Calcium 8.6 mg/dL (8.4-10.2); Carbon Dioxide 26 mmol/L (22-30); Chloride 106 mmol/L (98-107); Estimated CRCL calculation 181 ml/min; Estimated Glomerular Filt Rate > 60; Glucose 352 mg/dL (65-105); Potassium 4.5 mmol/L (3.4-5.0); Sodium 136 mmol/L (137-145)
[2021-01-08 13:00] LABS: Add Urine Microscopic? YES; Appearance Urine Clear (Clear); Bacteria Urine Trace /hpf; Bilirubin Urine Negative (Negative); Blood Urine Negative (Negative); Color Urine Yellow (Yellow); Glucose Urine UA 3+ mg/dL (Negative); Ketones Urine Negative (Negative); Leukocyte Esterase Ur Negative LEU/UL (Negative); Mucus Urine Rare /lpf; Nitrate Urine Negative (Negative); Protein Urine 1+ mg/dL (Negative); RBC Urine 0-2 /hpf (0-2); Squamous Epithelial Cell Urine Many /hpf (Few)
[2021-01-08 13:14] LABS: Specific Grav Ur 1.032 (1.001-1.035)
== END 2021-01-08 14:07 | disposition home or self-care (01) ==
PROVIDERS: Emergency Provider General Practice; PCP Family Medicine
DX: G43.909 Migraine, unspecified, not intractable, without status migrainosus (principal); E66.01 Morbid (severe) obesity due to excess calories; Z68.43 Body mass index [BMI] 50.0-59.9, adult; E11.65 Type 2 diabetes mellitus with hyperglycemia; K21.9 Gastro-esophageal reflux disease without esophagitis; Z87.442 Personal history of urinary calculi; G47.33 Obstructive sleep apnea (adult) (pediatric); E28.2 Polycystic ovarian syndrome; Z86.73 Personal history of transient ischemic attack (TIA), and cerebral infarction without residual deficits; Z87.440 Personal history of urinary (tract) infections; Z79.4 Long term (current) use of insulin; F41.9 Anxiety disorder, unspecified; F43.10 Post-traumatic stress disorder, unspecified; F32.9 Major depressive disorder, single episode, unspecified
CPT/HCPCS: 36415; 80053; 81001; 82803; 82948; 85025; 96361; 96374; 96375; 99284; J1200; J1885; J2405; J2765; J7120

== ENCOUNTER 2021-01-20 07:13 | Outpatient (CLI) | payer OTHER, SELFPAY ==
[2021-01-20 07:46] LABS: Alanine Aminotransferase 121 U/L (4-35); Albumin Level 3.7 g/dL (3.5-5.1); Alkaline Phosphatase 64 U/L (38-126); Anion Gap 6 mmol/L (8-16); Aspartate Amino Transferase 93 U/L (14-36); Bilirubin,Total 0.7 mg/dL (0.2-1.3); Blood Urea Nitrogen 8 mg/dL (7-17); Calcium 8.6 mg/dL (8.4-10.2); Carbon Dioxide 28 mmol/L (22-30); Chloride 105 mmol/L (98-107); Cholesterol 132 mg/dL (0-200); Estimated Glomerular Filt Rate > 60; Glucose 327 mg/dL (65-105); HDL Direct 26 mg/dL; Potassium 4.3 mmol/L (3.4-5.0); Sodium 139 mmol/L (137-145); Triglycerides 219 mg/dL (<150)
[2021-01-20 07:47] LABS: Hemoglobin A1C 10.3 % (<5.7)
[2021-01-20 07:57] LABS: LDL Cholesterol Direct 85 mg/dL
== END 2021-01-20 07:14 | disposition home or self-care (01) ==
PROVIDERS: PCP Family Medicine; Visit Provider Family Medicine
DX: E11.69 Type 2 diabetes mellitus with other specified complication (principal); Z79.4 Long term (current) use of insulin; E78.2 Mixed hyperlipidemia
CPT/HCPCS: 36415; 80053; 80061; 83036

== ENCOUNTER 2021-02-22 10:44 | Outpatient (RCR) | payer OTHER, SELFPAY | END 2021-05-15 11:56 | disposition home or self-care (01) | LOC: ANHDMC 10:44 | PROVIDERS: PCP Family Medicine; Visit Provider Family Medicine | DX: E11.9 Type 2 diabetes mellitus without complications (principal); Z71.89 Other specified counseling | CPT/HCPCS: G0108 ==

== ENCOUNTER 2021-12-20 15:12 | Outpatient (CLI) | payer OTHER, MEDICAID, SELFPAY ==
--- NOTE | ~2021-12-20 | XR_ITS ---
EXAMINATION: XR abdomen/kub 1V DATE: 12/20/2021 16:50 INDICATION: Right lower quadrant abdominal pain. TECHNIQUE: A supine view of the abdomen on 4 radiographs was obtained. COMPARISON: CT abdomen and pelvis 11/11/19 FINDINGS: There are no dilated loops of bowel. Surgical clips in the right upper quadrant are likely from cholecystectomy. There is a moderate volume of stool in the colon. There is a phlebolith in righ t pelvis. There is a 6 mm stone in right kidney. IMPRESSION: 1. Normal bowel gas pattern. 2. Right kidney stone. Reviewed, dictated and finalized at location E. R MILL WORKER
== END 2021-12-20 15:13 | disposition home or self-care (01) ==
LOC: ANHIMG 15:18
PROVIDERS: PCP Family Medicine; Visit Provider Physician Assistant
DX: R10.9 Unspecified abdominal pain (principal); R20.0 Anesthesia of skin
CPT/HCPCS: 74018

== ENCOUNTER → 2021-12-28 14:49 | Outpatient (CLI) | payer OTHER, MEDICAID, SELFPAY ==
--- NOTE | ~2021-12-28 | CT_ITS ---
EXAMINATION: CT abdomen pelvis wo con DATE: 12/28/2021 15:12 INDICATION: Right flank pain. Nephrolithiasis. TECHNIQUE: Computed tomography (CT) of the abdomen and pelvis was performed without intravenous contr ast. Automated exposure control and iterative reconstruction technique were employed. Exam dose: 117 3.76 mGy-cm total exam DLP. COMPARISON: December 20, 2021 KUB 11/11/2019 CT abdomen pelvis with IV contrast material FINDINGS: The lung bases are clear of infiltrate or consolidation. Normal heart size. No pericardial or pleural effusion. Status post cholecystectomy. The liver, spleen, pancreas, and adrenal glands are unremarkable. 4.6 x 8.5 mm nonobstructing right renal calculus. No other urinary tract calculus or hydroureteroneph rosis. No renal mass lesion is evident on this limited noncontrast examination. Normal caliber of the abdominal aorta. No intraperitoneal or retroperitoneal or pelvic mass lesion or adenopathy or ascites. The uterus, ovaries and urinary bladder appear unremarkable. No bowel obstruction, bowel wall thickening, pneumatosis or intraperitoneal free air is detected. There is a very small fat-containing umbilical hernia. Included skeletal structures are unremarkable. IMPRESSION: Nonobstructing 4.6 x 8.5 mm right renal calculus Status post cholecystectomy Resolution of hepatic steatosis noted on 11/11/2019 CT abdomen pelvis examination Reviewed, dictated and finalized at Location A. Reviewed, dictated and finalized at location B. 'S ENGINEER
== END ==
PROVIDERS: Visit Provider Urology
DX: N20.0 Calculus of kidney (principal); Z90.49 Acquired absence of other specified parts of digestive tract
CPT/HCPCS: 74176

== ENCOUNTER 2022-01-01 19:48 | Emergency (ER) | payer OTHER, MEDICAID, SELFPAY ==
--- NOTE | ~2022-01-01 | CT_ITS ---
EXAMINATION: CT abdomen pelvis wo con DATE: 01/01/2022 20:41 INDICATION: Right flank pain TECHNIQUE: Computed tomography (CT) of the abdomen and pelvis was performed without intravenous contr ast. The dose-length product (DLP) was 1587.12 mGy-cm. Automated exposure control and iterative recon struction technique were employed. COMPARISON: 12/28/2021 FINDINGS: The lung bases are clear. The heart size is normal. The gallbladder is surgically absent. W ithin the limitations of noncontrast examination, the liver, spleen, pancreas, and right adrenal glan d are normal. 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 The left kidney is unremarkabl e. There is an 8 mm nonobstructing stone of the right kidney. No stones are present in the ureters or bladder. There is no hydronephrosis or hydroureter. No pathologically enlarged abdominal or pelvic l ymph nodes are identified. There is no free intraperitoneal gas or evidence of bowel obstruction. IMPRESSION: 1. Nonobstructing right nephrolithiasis. Reviewed, dictated and finalized at location F. L AIRCREWMAN MECHANICAL
[2022-01-01 19:50] VITALS: BP 138/95; PULSE 114; RESP 15; TEMP 36.9; O2SAT 100
[2022-01-01 20:05] VITALS: BP 156/88; PULSE 112; RESP 20; O2SAT 97
--- NOTE | 2022-01-01 20:08 | ED.ABDPAIN ---
HPI - Abdominal Pain General Chief Complaint: Abdominal Pain Stated Complaint: abdominal pain Time Seen by Provider: 01/01/22 20:07 Source: patient Mode of arrival: ambulatory Limitations: no limitations History of Present Illness HPI narrative: Patient is a 36-year-old female complaining of right flank pain, sharp, 8 out of 10, nonradiating started 4 days ago. Patient was seen here 4 days ago for the same complaint had a CT scan of abdomen pelvis done and showed nonobstructing 4.6 x 8.5 mm right renal calculus. Patient states that she saw her urologist and no intervention done but the past 3 days pain is worse. Patient denies any chest pain, shortness of breath, abdominal pain, nausea, vomiting, hematuria, fever or chills. Related Data Home Medications Medication Instructions Recorded Confirmed hydroxyzine pamoate 25 mg PO TID PRN 09/21/19 12/28/21 norethindrone (contraceptive) 0.35 mg PO DAILY 03/13/20 12/28/21 [Jencycla] aripiprazole 20 mg tablet 20 mg PO DAILY 07/18/20 12/28/21 desvenlafaxine succinate 100 mg 100 mg PO DAILY 07/18/20 12/28/21 tablet,extended release 24 hr onabotulinumtoxinA [Botox] 200 unit INTRADERMAL [id number] 10/14/20 12/28/21 semaglutide 1 mg SUBCUT WEEKLY ml 12/19/21 12/28/21 Allergies Allergy/AdvReac Type Severity Reaction Status Date / Time clindamycin Allergy Mild Hives Verified 12/31/21 09:35 Sulfa (Sulfonamide Allergy Unknown Hives Verified 12/31/21 09:35 Antibiotics) Review of Systems Review of Systems: All systems reviewed & are unremarkable except as noted in HPI and below Constitutional: Constitutional: Denies body ache(s), Denies chills, Denies excessive sweating, Denies fatigue, Denies fever(s), Denies headache(s), Denies lethargy, Denies malaise, Denies weakness and Denies weight loss Eyes: Eyes: Denies blurry vision, Denies change in vision and Denies loss of vision ENT: Denies dizziness, Denies ear discharge, Denies headache(s), Denies lip swelling, Denies epistaxis, Denies nasal congestion, Denies neck pain, Denies throat swelling and Denies tongue swelling Cardiovascular: Cardiovascular: Denies chest pain, Denies chest pain at rest, Denies chest pain with activity, Denies diaphoresis, Denies rapid heart rate, Denies edema, Denies irregular heart rhythm, Denies lightheadedness, Denies palpitations, Denies dyspnea and Denies dyspnea on exertion Respiratory: Respiratory: Denies chest congestion, Denies cough, Denies hemoptysis, Denies dyspnea and Denies dyspnea on exertion Gastrointestinal: Gastrointestinal: Denies abdominal pain, Denies melena, Denies hematochezia, Denies diarrhea, Denies nausea, Denies vomiting and Denies hematemesis Musculoskeletal: Musculoskeletal: Denies abnormal gait, Denies deformity, Denies joint swelling, Denies limited range of motion, Denies neck pain and Denies numbness Neurologic: Denies Abnormal speech present, Denies abnormal gait, Denies confusion, Denies dizziness, Denies headache(s), Denies focal weakness, Denies loss of vision, Denies numbness, Denies Other visual disturbances, Denies Sensory deficit (Neuro) and Denies weakness Psychiatric: Psychiatric: Denies confusion, Denies depression, Denies auditory hallucinations, Denies homicidal ideation and Denies suicidal ideation Endocrine: Endocrine: Denies cold intolerance, Denies excessive sweating, Denies fatigue, Denies heat intolerance and Denies palpitations Hematologic/Lymphatic: Hematologic/Lymphatic: Denies easy bleeding and Denies easy bruising Allergic/Immunologic: Allergic/Immunologic: Denies lip swelling, Denies throat swelling and Denies tongue swelling PMFSH Past Medical History Medical History Allergies Anxiety Depression Seeing psychiatry Diabetes mellitus Eczema Elbow fracture, right GERD (gastroesophageal reflux disease) GERD (gastroesophageal reflux disease) Headache, migraine Hyperlipidemia associated with type
[2022-01-01] MEDS: KETOROLAC 30 MG/ML VIAL (*BKC) IV PUSH (20:30)
[2022-01-01] MEDS: SODIUM CHLORIDE 0.9% IV 1,000 ML 999 ML IV CONT (20:31)
[2022-01-01 20:34] LABS: Basophils Absolute Auto 0.1 K/mm3 (0.0-0.1); Basophils Percent Auto 0.4 % (0.2-1.2); Eosinophils Absolute Auto 0.3 K/mm3 (0-0.3); Eosinophils Percent Auto 1.8 % (0-4.4); Hematocrit 49.3 % (37.0-47.0); Hemoglobin 15.7 g/dL (12.0-15.0); Immature Granulocyte Absolute 0.12 K/mm3 (0.00-0.031); Immature Granulocyte Percent A 0.6 % (0-0.5); Lymphocytes Absolute Auto 4.19 K/mm3 (0.9-3.2); Mean Corpuscular HGB Conc 31.8 g/dl (32-36); Mean Corpuscular Hemoglobin 28.5 pg (26-34); Mean Corpuscular Volume 89.6 fl (80-100); Mean Platelet Volume 10.5 fl (7.4-10.4); Monocytes Absolute Auto 1.4 K/mm3 (0.1-0.6); Monocytes Percent Auto 7.2 % (2.6-8.5); Platelet Count Result 306 k/mm3 (150-375); White Blood Count 19.1 K/mm3 (4.5-10.0)
[2022-01-01 20:41] LABS: Add Urine Microscopic? YES; Appearance Urine Clear (Clear); Bacteria Urine Trace /hpf; Bilirubin Urine Negative (Negative); Blood Urine 1+ (Negative); Color Urine Yellow (Yellow); Glucose Urine UA 3+ mg/dL (Negative); Ketones Urine Negative (Negative); Leukocyte Esterase Ur 3+ LEU/UL (Negative); Mucus Urine Rare /lpf; Nitrate Urine Negative (Negative); Protein Urine Negative (Negative); RBC Urine 51-75 /hpf (0-2); Specific Grav Ur 1.024 (1.001-1.035); Squamous Epithelial Cell Urine Few /hpf (Few); Urobilinogen Urine Negative mg/dL (<2.0); WBC Urine >75 /hpf
[2022-01-01 20:46] LABS: Alanine Aminotransferase 21 U/L (4-35); Albumin Level 4.3 g/dL (3.5-5.1); Alkaline Phosphatase 54 U/L (38-126); Anion Gap 9 mmol/L (8-16); Aspartate Amino Transferase 30 U/L (14-36); Bilirubin,Total 1.1 mg/dL (0.2-1.3); Blood Urea Nitrogen 12 mg/dL (7-17); Calcium 8.6 mg/dL (8.4-10.2); Carbon Dioxide 24 mmol/L (22-30); Chloride 105 mmol/L (98-107); Estimated CRCL calculation 132 ml/min; Estimated Glomerular Filt Rate > 60; Glucose 194 mg/dL (65-110); Lipase 96 U/L (23-300); Potassium 3.8 mmol/L (3.4-5.0); Sodium 138 mmol/L (137-145)
[2022-01-01 22:05] VITALS: BP 151/79; PULSE 89; RESP 20; TEMP 37.1; O2SAT 95
== END 2022-01-01 22:14 | disposition home or self-care (01) ==
PROVIDERS: Emergency Provider Emergency Medicine; PCP Family Medicine
DX: N20.0 Calculus of kidney (principal); E11.69 Type 2 diabetes mellitus with other specified complication; E78.5 Hyperlipidemia, unspecified; I10 Essential (primary) hypertension; G47.33 Obstructive sleep apnea (adult) (pediatric); E28.2 Polycystic ovarian syndrome; K21.9 Gastro-esophageal reflux disease without esophagitis; Z87.442 Personal history of urinary calculi; Z86.73 Personal history of transient ischemic attack (TIA), and cerebral infarction without residual deficits; Z87.440 Personal history of urinary (tract) infections; Z87.891 Personal history of nicotine dependence; Z79.84 Long term (current) use of oral hypoglycemic drugs; Z79.899 Other long term (current) drug therapy
CPT/HCPCS: 36415; 74176; 80053; 81001; 81025; 83690; 85025; 87086; 87088; 96361; 96365; 96375; 99284; J0696; J1885; J7030

== ENCOUNTER 2022-01-10 08:13 | Emergency (ER) | payer OTHER, MEDICAID, SELFPAY ==
--- NOTE | 2022-01-10 08:15 | ED.URI ---
HPI - URI/Sore Throat General Chief Complaint: Ear Stated Complaint: Ear Pain/Cough Time Seen by Provider: 01/10/22 08:15 Source: patient and RN notes reviewed History of Present Illness HPI Narrative: Patient is a 36-year-old female presents the urgent care with complaints of bilateral ear pain and cough. Patient states is been ongoing for approximately 2 weeks. States that her PCP put her on Tessalon Perles and Levaquin a couple weeks ago which seems to have improved slightly. States that the Tessalon Perles did not work. States that she has diabetes but her blood sugars have been running normal however her PCP did not place her on a steroid for the bronchitis. Patient denies any fevers, chills, nausea, vomiting. Denies of any wheezes or shortness of breath. No other acute complaints. No acute distress noted. Patient read the plan of care. Some parts of this dictation were generated by voice recognition software and may contain typographical and/or grammatical inaccuracies. Related Data Home Medications Medication Instructions Recorded Confirmed hydroxyzine pamoate 25 mg PO TID PRN 09/21/19 01/10/22 norethindrone (contraceptive) 0.35 mg PO DAILY 03/13/20 01/10/22 [Jencycla] aripiprazole 20 mg tablet 20 mg PO DAILY 07/18/20 01/10/22 desvenlafaxine succinate 100 mg 100 mg PO DAILY 07/18/20 01/10/22 tablet,extended release 24 hr onabotulinumtoxinA [Botox] 200 unit INTRADERMAL [id number] 10/14/20 01/10/22 semaglutide 1 mg SUBCUT WEEKLY ml 12/19/21 01/10/22 Allergies Allergy/AdvReac Type Severity Reaction Status Date / Time clindamycin Allergy Mild Hives Verified 01/10/22 08:26 Sulfa (Sulfonamide Allergy Unknown Hives Verified 01/10/22 08:26 Antibiotics) Review of Systems Review of Systems: CONSTITUTIONAL: Denies fever, chills, or sweats. EYES: Denies visual changes, redness, or discharge. ENT: Denies rhinorrhea, congestion, sore throat. Reports bilateral otalgia CARDIOVASCULAR: Denies chest pain, palpitations, or edema. RESPIRATORY: Reports a persistent dry cough without dyspnea GASTROINTESTINAL: Denies abdominal pain, nausea, vomiting, or diarrhea. GENITOURINARY: Denies dysuria or hematuria. SKIN: Denies rash or itching. MUSCULOSKELETAL: Denies back pain, joint pain, or myalgia. NEUROLOGIC: Denies headache, numbness, or weakness. All other systems reviewed are negative, except as documented in HPI. [facility] Past Medical History Medical History Allergies Anxiety Depression Seeing psychiatry Diabetes mellitus Eczema Elbow fracture, right GERD (gastroesophageal reflux disease) GERD (gastroesophageal reflux disease) Headache, migraine Hyperlipidemia associated with type 2 diabetes mellitus Hypertension Kidney stones Leg fracture, left Migraine Seeing neurology KAYLEE (obstructive sleep apnea) PCOS (polycystic ovarian syndrome) PTSD (post-traumatic stress disorder) Sleep apnea TIA (transient ischemic attack) Ureter obstruction Urinary tract infection UTI (urinary tract infection) Wrist fracture, bilateral Surgical History Surgical History H/O laparoscopy History of lithotripsy History of removal of cyst Hx of cholecystectomy Family History Family History Father Diabetes mellitus Hypertension Family history of elevated blood lipids Grandparent Diabetes mellitus Family history of coronary artery disease Mother Hypertension Other Cancer Cerebrovascular accident Depression Social History Social History Smoking packs per day: 0.25 Smoking cigarettes per day: 5.0 Years smoked: 4 Smoking pack-years: 1.00 Smoking status: Former smoker Second hand tobacco smoke exposure: No Smoking end date: 11/10/12 Alcohol intake: current Drinks per week: 1 Subs
[2022-01-10 08:20] VITALS: BP 140/90; PULSE 93; RESP 20; TEMP 36.6; O2SAT 98
== END 2022-01-10 08:45 | disposition home or self-care (01) ==
PROVIDERS: Emergency Provider Nurse Practitioner Family; PCP Family Medicine
DX: J40 Bronchitis, not specified as acute or chronic (principal); F41.9 Anxiety disorder, unspecified; E11.9 Type 2 diabetes mellitus without complications; K21.9 Gastro-esophageal reflux disease without esophagitis; E78.5 Hyperlipidemia, unspecified; I10 Essential (primary) hypertension; G47.33 Obstructive sleep apnea (adult) (pediatric); E28.2 Polycystic ovarian syndrome; G47.30 Sleep apnea, unspecified; Z87.891 Personal history of nicotine dependence
CPT/HCPCS: 99213; G0463

== ENCOUNTER 2022-03-09 09:37 | Outpatient (CLI) | payer OTHER, MEDICAID, SELFPAY ==
[2022-03-09 09:59] LABS: Hematocrit 47.1 % (37.0-47.0); Hemoglobin 15.2 g/dL (12.0-15.0); Mean Corpuscular HGB Conc 32.3 g/dl (32-36); Mean Corpuscular Hemoglobin 28.7 pg (26-34); Mean Platelet Volume 10.6 fl (7.4-10.4); Platelet Count Result 329 k/mm3 (150-375); Red Blood Count 5.29 M/mm3 (4.2-5.4); White Blood Count 19.5 K/mm3 (4.5-10.0)
[2022-03-09 10:14] LABS: Alanine Aminotransferase 20 U/L (4-35); Albumin Level 4.3 g/dL (3.5-5.1); Alkaline Phosphatase 59 U/L (38-126); Anion Gap 10 mmol/L (8-16); Aspartate Amino Transferase 26 U/L (14-36); Bilirubin,Total 0.7 mg/dL (0.2-1.3); Blood Urea Nitrogen 15 mg/dL (7-17); Calcium 8.8 mg/dL (8.4-10.2); Carbon Dioxide 23 mmol/L (22-30); Chloride 105 mmol/L (98-107); Estimated Glomerular Filt Rate > 60; Glucose 220 mg/dL (65-110); Potassium 3.7 mmol/L (3.4-5.0); Sodium 138 mmol/L (137-145)
== END 2022-03-09 09:38 | disposition home or self-care (01) ==
LOC: ANHLAB 09:38
PROVIDERS: PCP Family Medicine; Visit Provider Physician Assistant Medical
DX: R53.83 Other fatigue (principal); E78.2 Mixed hyperlipidemia
CPT/HCPCS: 36415; 80053; 85027

== ENCOUNTER 2022-03-12 17:08 | Outpatient (CLI) | payer OTHER, MEDICAID, SELFPAY ==
--- NOTE | ~2022-03-12 | XR_ITS ---
EXAM: XR abdomen obstructive series HISTORY: K59.00 - Constipation, unspecified COMPARISON: None available FINDINGS: Clear lung bases. Normal bowel gas pattern. No organomegaly. Cholecystectomy clips. Pelvic phleboliths. Right renal calcification. Regional bones and soft tissues normal for age. IMPRESSION: No radiographic evidence of obstruction or ileus Reviewed, dictated and finalized at location K.
[2022-03-12 17:32] LABS: Basophils Absolute Auto 0.1 K/mm3 (0.0-0.1); Basophils Percent Auto 0.3 % (0.2-1.2); Eosinophils Absolute Auto 0.3 K/mm3 (0-0.3); Eosinophils Percent Auto 1.4 % (0-4.4); Hematocrit 45.9 % (37.0-47.0); Hemoglobin 14.3 g/dL (12.0-15.0); Immature Granulocyte Absolute 0.11 K/mm3 (0.00-0.031); Immature Granulocyte Percent A 0.6 % (0-0.5); Lymphocytes Absolute Auto 3.87 K/mm3 (0.9-3.2); Lymphocytes Percent Auto 22.4 % (18.3-44.2); Mean Corpuscular HGB Conc 31.2 g/dl (32-36); Mean Corpuscular Hemoglobin 28.3 pg (26-34); Mean Corpuscular Volume 90.7 fl (80-100); Mean Platelet Volume 10.6 fl (7.4-10.4); Monocytes Absolute Auto 1.3 K/mm3 (0.1-0.6); Monocytes Percent Auto 7.5 % (2.6-8.5); Neutrophils Absolute Auto 11.7 K/mm3 (1.3-6.7); Neutrophils Percent Auto 67.8 % (45.5-73.1); Platelet Count Result 291 k/mm3 (150-375); Red Blood Count 5.06 M/mm3 (4.2-5.4); Red Cell Distribution Width 13.8 % (11.5-14.5); White Blood Count 17.3 K/mm3 (4.5-10.0)
[2022-03-12 17:42] LABS: Anion Gap 7 mmol/L (8-16); Blood Urea Nitrogen 11 mg/dL (7-17); Calcium 8.4 mg/dL (8.4-10.2); Carbon Dioxide 22 mmol/L (22-30); Chloride 108 mmol/L (98-107); Estimated Glomerular Filt Rate > 60; Glucose 214 mg/dL (65-110); Potassium 3.6 mmol/L (3.4-5.0); Sodium 137 mmol/L (137-145)
== END 2022-03-12 17:09 | disposition home or self-care (01) ==
PROVIDERS: PCP Family Medicine; Visit Provider Physician Assistant Medical
DX: R53.83 Other fatigue (principal); K59.00 Constipation, unspecified; N20.0 Calculus of kidney; R10.9 Unspecified abdominal pain
CPT/HCPCS: 36415; 74019; 80048; 85025

== ENCOUNTER → 2022-03-23 08:03 | Outpatient (CLI) | payer OTHER, MEDICAID, SELFPAY ==
--- NOTE | ~2022-03-23 | XR_ITS ---
EXAM: XR abdomen/kub 1V HISTORY: Nephrolithiasis COMPARISON: 03/12/2022. FINDINGS: Clear lung bases. Cholecystectomy clips. Normal bowel gas pattern. No organomegaly. 7 mm r ight renal calcification, stable. Pelvic phleboliths. Regional bones and soft tissues normal for age. IMPRESSION: Right nephrolithiasis. Reviewed, dictated and finalized at location K. IMPRESSION: Right nephrolithiasis.
== END ==
PROVIDERS: PCP Family Medicine; Visit Provider Urology
DX: N20.0 Calculus of kidney (principal)
CPT/HCPCS: 74018

== ENCOUNTER 2022-04-05 12:29 | Outpatient (CLI) | payer OTHER, MEDICAID, SELFPAY ==
[2022-04-05 13:30] LABS: Anion Gap 10 mmol/L (8-16); Blood Urea Nitrogen 13 mg/dL (7-17); Carbon Dioxide 22 mmol/L (22-30); Chloride 107 mmol/L (98-107); Cholesterol 115 mg/dL (0-200); Estimated Glomerular Filt Rate > 60; Glucose 141 mg/dL (65-110); HDL Direct 33 mg/dL; Potassium 3.9 mmol/L (3.4-5.0); Sodium 139 mmol/L (137-145); Triglycerides 167 mg/dL (<150)
[2022-04-05 13:40] LABS: LDL Cholesterol Direct 55 mg/dL
[2022-04-05 13:43] LABS: Creatinine Urine 78.4 mg/dL
[2022-04-05 14:13] LABS: MALB Creatinine Ratio 36.4 mg/g (0-30); Microalbumin Urine Random 28.5 mg/L (0-16.7)
[2022-04-05 14:44] LABS: Free T4 Free Thyroxine 1.41 ng/mL (0.78-2.19); Vitamin D 25 Hydroxy 40.6 ng/mL
[2022-05-08 09:37] LABS: Gliadin AB, IgG <1.0 U/mL (<15.0); TTG IGA AB <1.0 U/mL (<15.0)
== END 2022-04-05 12:30 | disposition home or self-care (01) ==
LOC: ANHLAB 12:32
PROVIDERS: PCP Family Medicine; Referring Provider Nurse Practitioner; Visit Provider Nurse Practitioner Family
DX: E11.69 Type 2 diabetes mellitus with other specified complication (principal); E78.5 Hyperlipidemia, unspecified; E11.9 Type 2 diabetes mellitus without complications; I10 Essential (primary) hypertension; E28.2 Polycystic ovarian syndrome; R79.89 Other specified abnormal findings of blood chemistry
CPT/HCPCS: 36415; 80048; 80061; 82043; 82306; 82607; 83516; 84439; 84443; 86255

== ENCOUNTER 2022-04-06 08:37 | Outpatient (CLI) | payer OTHER, MEDICAID, SELFPAY ==
[2022-04-06 10:50] LABS: Toxigenic C. Diff NEGATIVE (NEGATIVE)
[2022-04-12 19:27] LABS: Calprotectin, Stool 315 mcg/g
== END 2022-04-06 08:38 | disposition home or self-care (01) ==
LOC: ANHLAB 08:39
PROVIDERS: PCP Family Medicine; Visit Provider Nurse Practitioner
DX: R19.4 Change in bowel habit (principal); R19.7 Diarrhea, unspecified; R10.9 Unspecified abdominal pain; R14.3 Flatulence; R14.1 Gas pain; R14.2 Eructation; I10 Essential (primary) hypertension; K21.9 Gastro-esophageal reflux disease without esophagitis; E66.3 Overweight; E11.9 Type 2 diabetes mellitus without complications
CPT/HCPCS: 83993; 87045; 87177; 87209; 87427; 87493

== ENCOUNTER 2022-05-08 03:01 | Day surgery (SDC) | payer OTHER, MEDICAID, SELFPAY ==
[2022-05-08 13:12] VITALS: BP 128/105; PULSE 98; RESP 20; TEMP 36.3; O2SAT 99; BMI 56.4
[2022-05-08] MEDS: LACTATED RINGERS 1,000 ML 150 ML IV CONT (13:22)
[2022-05-08 13:25] LABS: Glucose Point of Care 186 mg/dl (65-105)
--- NOTE | 2022-05-08 13:41 | WPDANESEPPF ---
Anes - Initial Pre Proc Eval Procedure: Operation Date: 05/08/22 14:30 Proposed Procedures p Esophagogastroduodenoscopy & Colonoscopy - Kevin Coburn MD Date/Time: 05/08/22 13:41 Surgeon: Kevin Coburn MD Pre Op Diagnosis: GERD, change in bowel habits, diarrhea Patient Data Age: 36 Gender: F Height: 1.7 m Weight: 163.4 kg Last Vital Signs Temp 97.3 F L 05/08/22 13:12 Pulse 98 05/08/22 13:12 Resp 20 05/08/22 13:12 BP 128/105 H 05/08/22 13:12 Pulse Ox 99 05/08/22 13:12 O2 Del Method Room Air 05/08/22 13:12 Allergies Allergy/AdvReac Type Severity Reaction Status Date / Time clindamycin Allergy Mild Hives Verified 05/08/22 13:09 Sulfa (Sulfonamide Allergy Unknown Hives Verified 05/08/22 13:09 Antibiotics) Home Medications Medication Instructions Recorded Confirmed Type hydroxyzine pamoate 25 mg capsule 25 mg PO TID PRN Anxiety 09/21/19 04/23/22 History aripiprazole 20 mg tablet 20 mg PO DAILY 07/18/20 04/23/22 History desvenlafaxine succinate 100 mg 100 mg PO DAILY 07/18/20 04/23/22 History tablet,extended release 24 hr pen needle, diabetic 31 gauge x #200 ea 09/08/20 04/23/22 Rx 5/16 blood sugar diagnostic (Accu-Chek #100 ea 03/02/21 04/23/22 Rx Guide test strips) lancets (Accu-Chek Softclix #100 ea 03/02/21 04/23/22 Rx Lancets) semaglutide 0.25 mg or 0.5 mg (2 1 mg subcut WEEKLY 12/19/21 04/23/22 History mg/1.5 mL) subcutaneous pen injector (Ozempic) albuterol sulfate 90 mcg/actuation 2 puff inhalation Q4-6H PRN cough 12/28/21 04/23/22 Rx aerosol inhaler (Ventolin HFA) #18 grams flash glucose sensor (FreeStyle #6 ea 01/16/22 04/23/22 Rx Shell 2 Sensor kit) metoprolol succinate 50 mg 50 mg PO DAILY #90 tabs 01/18/22 04/23/22 Rx tablet,extended release 24 hr empagliflozin 25 mg tablet 25 mg PO DAILY #90 tabs 01/23/22 04/23/22 Rx (Jardiance) metformin 1,000 mg tablet 1,000 mg PO BID #180 tabs 01/23/22 04/23/22 Rx blood-glucose meter,continuous #1 ea 01/24/22 04/23/22 Rx (Dexcom G6 Title Officer misc) blood-glucose sensor (Dexcom G6 #9 ea 01/24/22 04/23/22 Rx Sensor device) blood-glucose transmitter (Dexcom #1 ea 01/24/22 04/23/22 Rx G6 Transmitter device) insulin degludec 200 unit/mL (3 60 unit (0.3 mL) subcut DAILY 90 01/31/22 04/23/22 Rx mL) subcutaneous pen ( #27 mL FlexTouch U-200 insulin) topiramate 50 mg tablet See Rx Instructions .Route 02/28/22 04/23/22 Rx .COMPLEX #270 tabs atorvastatin 10 mg tablet 10 mg PO DAILY #90 tabs 03/15/22 04/23/22 Rx omeprazole 20 mg capsule,delayed 20 mg PO DAILY #90 caps 03/18/22 04/23/22 Rx release glimepiride 2 mg tablet 4 mg PO .COMPLEX 90 days #360 tabs 03/26/22 04/23/22 Rx Bifidobacterium infantis 4 mg 4 mg PO DAILY 04/02/22 04/23/22 History capsule (Align) fluticasone 500 mcg-salmeterol 50 1 inh inhalation Q12H #60 ea 04/02/22 04/23/22 Rx mcg/dose blistr powdr for inhalation (Advair Diskus) spironolactone 100 mg tablet 200 mg PO DAILY 90 days #180 tabs 04/02/22 04/23/22 Rx dicyclomine 20 mg tablet 20 mg PO TID #90 tabs 04/05/22 04/23/22 Rx lisinopril 5 mg tablet 5 mg PO DAILY #90 tabs 04/09/22 04/23/22 Rx ondansetron HCl 4 mg tablet See Rx Instructions .Route 04/09/22 04/23/22 Rx .COMPLEX #15 tabs rimegepant 75 mg disintegrating See Rx Instructions .Route 04/09/22 04/23/22 Rx tablet (Nurtec ODT) .COMPLEX #10 tabs sodium sul 1.479 gram-potas ch See Rx Instructions PO PER PKG DIR 04/10/22 04/23/22 Rx 0.188 gram-magnes sul 0.225 gram #24 tabs tablet (Sutab) mecobalamin (vitamin B12) 5,000 See Rx Instructions PO .COMPLEX 04/17/22 04/23/22 Rx mcg disintegrating tablet #90 tabs ibuprofen 800 mg tablet See Rx Instructions .Route 04/29/22 Rx .COMPLEX #90 tabs pen needle, diabetic 32 gauge x #100 ea 05/05/22 Rx 11/15 (NovoFine Plus) Laboratory Tests 05/08/22 13:21 POC Capillary Glucose 186 mg/dl H mg/dl
--- NOTE | 2022-05-08 13:58 | PM.HPGS ---
History of Present Illness History of Present Illness Consent: Risks, benefits, and alternatives have been discussed and questions answered. Patient agrees to proceed with procedure. Chief complaint: GERD, change in bowel habits, diarrhea Narrative: Angela Duncan is a 36 year old female with gerd on omeprazole, lately with belching and abdominal discomfort, also diarrhea worsened since had cholecystectomy Review of Systems Constitutional: Constitutional: Denies headache(s) and Denies weakness Eyes: Eyes: Denies blurry vision ENT: Reports Normal hearing present, Denies headache(s) and Denies neck pain Cardiovascular: Cardiovascular: Denies chest pain and Denies dyspnea Respiratory: Respiratory: Denies dyspnea Gastrointestinal: Gastrointestinal: Reports no additional gastrointestinal complaints Genitourinary: Genitourinary: Denies dysuria Musculoskeletal: Musculoskeletal: Denies neck pain Integumentary/Breasts: Skin/Breast: Denies dry skin Neurologic: Reports Normal hearing present, Denies headache(s) and Denies weakness Psychiatric: Psychiatric: Denies anxiety Endocrine: Endocrine: Denies change in body appearance Hematologic/Lymphatic: Hematologic/Lymphatic: Denies easy bleeding Allergic/Immunologic: Allergic/Immunologic: Denies urticaria PMF Past Medical History Medical History (Updated 04/05/22 @ 11:43 by Gogo Trinidad APRN) Abdominal cramping Allergies Anxiety Change in bowel habit Depression Seeing psychiatry Diarrhea Eczema Elbow fracture, right Flatulence, eructation and gas pain Flatulence, eructation and gas pain GERD (gastroesophageal reflux disease) Headache, migraine Hyperlipidemia associated with type 2 diabetes mellitus Hypertension Kidney stones Leg fracture, left Migraine Seeing neurology KAYLEE (obstructive sleep apnea) Overweight PCOS (polycystic ovarian syndrome) PTSD (post-traumatic stress disorder) TIA (transient ischemic attack) Type 2 diabetes mellitus Ureter obstruction Urinary tract infection UTI (urinary tract infection) Wrist fracture, bilateral Surgical History Surgical History H/O laparoscopy History of lithotripsy History of removal of cyst Hx of cholecystectomy Family History Family History Father Diabetes mellitus Hypertension Family history of elevated blood lipids Grandparent Diabetes mellitus Family history of coronary artery disease Mother Hypertension Other Cancer Cerebrovascular accident Depression Social History Social History Smoking packs per day: 0.25 Smoking cigarettes per day: 5.0 Years smoked: 4 Smoking pack-years: 1.00 Smoking status: Current some day smoker Tobacco type: cigarettes Second hand tobacco smoke exposure: No Smoking end date: 11/10/12 Alcohol intake: former Substance use: never Living arrangements: with family Gender identity (if verbalized by the patient): Female Spiritual care concerns: No Agree to blood products: Yes Meds Home Medications and Allergies Home Medications Medication Instructions Recorded Confirmed Type hydroxyzine pamoate 25 mg capsule 25 mg PO TID PRN Anxiety 09/21/19 04/23/22 History aripiprazole 20 mg tablet 20 mg PO DAILY 07/18/20 04/23/22 History desvenlafaxine succinate 100 mg 100 mg PO DAILY 07/18/20 04/23/22 History tablet,extended release 24 hr pen needle, diabetic 31 gauge x #200 ea 09/08/20 04/23/22 Rx /16 blood sugar diagnostic (Accu-Chek #100 ea 03/02/21 04/23/22 Rx Guide test strips) lancets (Accu-Chek Softclix #100 ea 03/02/21 04/23/22 Rx Lancets) semaglutide 0.25 mg or 0.5 mg (2 1 mg subcut WEEKLY 12/19/21 04/23/22 History mg/1.5 mL) subcutaneous pen injector (Ozempic) albuterol sulfate 90 mcg/actuation 2 puff inhalati
[2022-05-08] MEDS: BENZOCAINE (*SP) 60 ML SPRAY CAN (HURRICAINE) 1 SPRAY MUCOUS MEM (14:02)
[2022-05-08 14:25] VITALS: BP 125/73; PULSE 105; RESP 97; O2SAT 97
[2022-05-08 14:35] VITALS: BP 125/79; PULSE 98; RESP 19; O2SAT 98
[2022-05-08 14:45] VITALS: BP 118/78; PULSE 96; RESP 18; O2SAT 99
[2022-05-08 14:45] LABS: Glucose Point of Care 147 mg/dl (65-105)
== END 2022-05-08 14:50 | disposition home or self-care (01) ==
PROVIDERS: PCP Family Medicine; Visit Provider Internal Medicine Gastroenterology
PROC: 0DJ08ZZ Inspection of Upper Intestinal Tract, Via Natural or Artificial Opening Endoscopic (ICD-10-PCS; CPT 43235; principal; 2022-05-08 14:30)
DX: R10.9 Unspecified abdominal pain (principal); R19.7 Diarrhea, unspecified; K64.8 Other hemorrhoids; K29.50 Unspecified chronic gastritis without bleeding; K44.9 Diaphragmatic hernia without obstruction or gangrene; K21.9 Gastro-esophageal reflux disease without esophagitis; I10 Essential (primary) hypertension; E11.9 Type 2 diabetes mellitus without complications; E78.5 Hyperlipidemia, unspecified; G47.33 Obstructive sleep apnea (adult) (pediatric); E28.2 Polycystic ovarian syndrome; F43.10 Post-traumatic stress disorder, unspecified; Z86.73 Personal history of transient ischemic attack (TIA), and cerebral infarction without residual deficits; F41.9 Anxiety disorder, unspecified; F32.A Depression, unspecified; Z87.891 Personal history of nicotine dependence; Z79.51 Long term (current) use of inhaled steroids; Z79.899 Other long term (current) drug therapy; Z79.84 Long term (current) use of oral hypoglycemic drugs; Z79.4 Long term (current) use of insulin
CPT/HCPCS: 45380; 43239; 82948; 88305; 88342; J2001; J2704; J7120

== ENCOUNTER 2022-12-14 07:02 | Outpatient (CLI) | payer OTHER, MEDICAID, SELFPAY ==
--- NOTE | 2022-12-14 07:37 | ECG_ITS ---
Measurements Intervals [place] Rate: 116 P: 36 NE: 117 QRS: 64 QRSD: 94 T: 61 QT: 334 QTc: 464 Interpretive Statements SINUS TACHYCARDIA WITH SHORT NE INTERVAL NONSPECIFIC T-WAVE ABNORMALITY ABNORMAL ECG COMPARED TO ECG 10/14/2020 08:27:26 T-WAVE ABNORMALITY NOW PRESENT Electronically Signed On 12-14-2022 12:48:20 KISS MIXER by Freedom Banda M.D.
[2022-12-14 07:55] LABS: Anion Gap 6 mmol/L (8-16); Blood Urea Nitrogen 6 mg/dL (7-17); Calcium 8.4 mg/dL (8.4-10.2); Carbon Dioxide 25 mmol/L (22-30); Chloride 105 mmol/L (98-107); Estimated Glomerular Filt Rate > 60; Glucose 238 mg/dL (65-110); Hemoglobin 15.6 g/dL (12.0-15.0); Potassium 3.9 mmol/L (3.4-5.0); Sodium 136 mmol/L (137-145)
== END 2022-12-14 07:03 | disposition home or self-care (01) ==
LOC: ANHLAB 07:04
PROVIDERS: Anesthesiology; PCP Family Medicine; Visit Provider Obstetrics & Gynecology
DX: N92.6 Irregular menstruation, unspecified (principal); E11.9 Type 2 diabetes mellitus without complications; Z01.818 Encounter for other preprocedural examination; R94.31 Abnormal electrocardiogram [ECG] [EKG]
CPT/HCPCS: 36415; 80048; 85014; 85018; 86850; 86900; 86901; 93005

== ENCOUNTER 2022-12-20 00:55 | Day surgery (SDC) | payer OTHER, MEDICAID, SELFPAY ==
[2022-12-10 11:03] VITALS: BMI 52.6
--- NOTE | 2022-12-10 11:11 | PC.NURSE ---
Report to the Outpatient Waiting Room, entrance under the green pavilion located off [facility], at time 6:00 on date 12/20/22. Planned Procedure Time: 7:30. Time changes happen often and if your time is changed the preop area will call you the afternoon before. - You and your visitor will be asked to self-screen and do not enter if you have any COVID symptoms. - Only one visitor is requested with a max of two and NO children visitors are allowed at this time. - The patient visitor may be requested to leave or wait in car when not with patient due to distancing restrictions. - A mask is optional within the hospital at this time. Patients may have clear liquids (water, carbonated beverages, clear teas, apple juice) until 3 hours prior to surgery (4:30) with a maximum of 20 ounces. - No food from midnight until time of surgery Take the following medications with a SIP of water the morning of surgery: ARIPIPRAZOLE, DESVENLAFAXINE, METOPROLOL, TOPIRAMATE, HYDROXYZINE IF NEEDED DO NOT STOP ANY OF YOUR OTHER PRESCRIPTION MEDICATIONS PRIOR TO SURGERY EXCEPT THE FOLLOWING Medications to discontinue per physician: VITAMINS/SUPPLEMENTS Date to take last dose: 12/16/[address] XI MARK'S INSTRUCTIONS Please no make-up, nail romansh, hairspray, perfume, deodorant, or body powder the day of surgery. No jewelry (including any body piercings) or valuables the day of surgery, leave them at home. Please take a shower or bath the night before, or the morning of, surgery with an antibacterial soap. Wear comfortable, loose fitting clothing. - Jewelry must be removed prior to entering the operating room. Rings and piercings that are not removed may be cut off. - The hospital will not accept responsibility for valuables. - Please leave all valuables, including medications, at home the day of surgery. If you are going home after surgery, a licensed driver education instructor must drive you home. - NO public transportation without another adult if you receive anesthesia. - We recommend that an adult stay with you for 24 hours following discharge. - We also recommend that you do not drive, make important decision, drink alcoholic beverages, or take any drugs that were not prescribed by your health care provider for at least 24 hours after your discharge time. Follow any additional instructions given to you from your surgeon. If you or anyone in your household have experienced Covid symptoms in the past week, please notify your surgeon or the nurse liaison at the phone number below for possible testing. Telephone instructions given to LEE TOBIAS and asked if any additional questions and then verbalized understanding. Patient advised to call surgeon office or pre surgery nurse liaison [phone] if any additional questions.
--- NOTE | 2022-12-18 11:26 | PM.IMHP ---
H&P: HPI History of Present Illness Date/Time: 12/18/22 11:26 Chief Complaint: Pelvic pain and vaginal bleeding Narrative: This is a 37-year-old female 0 with heavy bleeding and severe pelvic pain. She is morbidly obese and has had a problem with periods throughout her life. She had ultrasound which was unhelpful. She is admitted for laparoscopy/hysteroscopy/dilatation and curettage. Risks and benefits reviewed including but not exclusive of , aspiration pneumonia, bleeding, transfusion, perforation of bowel, bladder, ureter, or other internal organs with need for laparotomy. She received the ACOG handout entitled laparoscopy as well as the and out's: Hysteroscopy and dilatation curettage respectively. She had all questions answered and asked to proceed PMFSH Past Medical History Medical History Abdominal cramping Allergies Anxiety Change in bowel habit Depression Seeing psychiatry Diarrhea Eczema Elbow fracture, right Flatulence, eructation and gas pain Flatulence, eructation and gas pain GERD (gastroesophageal reflux disease) Headache, migraine Hyperlipidemia associated with type 2 diabetes mellitus Hypertension Kidney stones Leg fracture, left Migraine Seeing neurology KAYLEE (obstructive sleep apnea) Overweight PCOS (polycystic ovarian syndrome) PTSD (post-traumatic stress disorder) TIA (transient ischemic attack) Type 2 diabetes mellitus Ureter obstruction Urinary tract infection UTI (urinary tract infection) Wrist fracture, bilateral Surgical History Surgical History H/O laparoscopy History of lithotripsy History of removal of cyst Hx of cholecystectomy Family History Family History Father Diabetes mellitus Hypertension Family history of elevated blood lipids Grandparent Diabetes mellitus Family history of coronary artery disease Mother Hypertension Other Cancer Cerebrovascular accident Depression Social History Social History Social History: current smoker Smoking packs per day: 0.15 Smoking cigarettes per day: 3.0 Years smoked: 8 Smoking pack-years: 1.20 Smoking status: Current some day smoker Tobacco type: cigarettes Second hand tobacco smoke exposure: No Additional smoking assessment comments: quit 2008 for 6 years and smokes socially since Alcohol intake: current Drinks per week: 10 Substance use: never Substance use type: does not use Living arrangements: with family Occupation/Education: occupation Gender identity (if verbalized by the patient): Female Spiritual care concerns: No Agree to blood products: Yes Meds Home Medications and Allergies Home Medications Medication Instructions Recorded Confirmed Type hydroxyzine pamoate 25 mg capsule 25 mg PO TID PRN Anxiety 09/21/19 12/10/22 History aripiprazole 20 mg tablet 20 mg PO DAILY 07/18/20 12/10/22 History desvenlafaxine succinate 100 mg 100 mg PO DAILY 07/18/20 12/10/22 History tablet,extended release 24 hr blood sugar diagnostic (Accu-Chek #100 ea 03/02/21 10/08/22 Rx Guide test strips) lancets (Accu-Chek Softclix #100 ea 03/02/21 10/08/22 Rx Lancets) flash glucose sensor (FreeStyle #6 ea 01/16/22 10/08/22 Rx Shell 2 Sensor kit) metoprolol succinate 50 mg 50 mg PO DAILY #90 tabs 01/18/22 12/10/22 Rx tablet,extended release 24 hr empagliflozin 25 mg tablet 25 mg PO DAILY #90 tabs 01/23/22 12/10/22 Rx (Jardiance) blood-glucose meter,continuous #1 ea 01/24/22 10/08/22 Rx (Dexcom G6 Spar Finisher) insulin degludec 200 unit/mL (3 60 unit (0.3 mL) subcut DAILY 90 01/31/22 12/10/22 Rx mL) subcutaneous pen ( #27 mL FlexTouch U-200 insulin) omeprazole 20 mg capsule,delayed 20 mg PO DAILY #90 caps 03/18/22
[2022-12-20] VITALS (9 sets, daily range): BP systolic 117–133; BP diastolic 74–90; PULSE 75–118; RESP 12–20; TEMP 36.6; O2SAT 90–98
--- NOTE | 2022-12-20 06:52 | WPDANESEPPF ---
Anes - Initial Pre Proc Eval Procedure: Operation Date: 12/20/22 07:30 Proposed Procedures p Laparoscopy, Hysteroscopy with Dilation and Curettage - Mason Slater MD Date/Time: 12/20/22 06:52 Surgeon: Mason Slater MD Pre Op Diagnosis: Irg Bleeding, Pain, Possible Endometriosis Patient Data Age: 37 Gender: F Height: 1.7 m Weight: 152.42 kg Allergies Allergy/AdvReac Type Severity Reaction Status Date / Time clindamycin Allergy Mild Hives Verified 12/10/22 10:57 Sulfa (Sulfonamide Allergy Unknown Hives Verified 12/10/22 10:57 Antibiotics) Home Medications Medication Instructions Recorded Confirmed Type hydroxyzine pamoate 25 mg capsule 25 mg PO TID PRN Anxiety 09/21/19 12/10/22 History aripiprazole 20 mg tablet 20 mg PO DAILY 07/18/20 12/10/22 History desvenlafaxine succinate 100 mg 100 mg PO DAILY 07/18/20 12/10/22 History tablet,extended release 24 hr blood sugar diagnostic (Accu-Chek #100 ea 03/02/21 10/08/22 Rx Guide test strips) lancets (Accu-Chek Softclix #100 ea 03/02/21 10/08/22 Rx Lancets) flash glucose sensor (FreeStyle #6 ea 01/16/22 10/08/22 Rx Shell 2 Sensor kit) metoprolol succinate 50 mg 50 mg PO DAILY #90 tabs 01/18/22 12/10/22 Rx tablet,extended release 24 hr empagliflozin 25 mg tablet 25 mg PO DAILY #90 tabs 01/23/22 12/10/22 Rx (Jardiance) blood-glucose meter,continuous #1 ea 01/24/22 10/08/22 Rx (Dexcom G6 On Site [employer] Technician) insulin degludec 200 unit/mL (3 60 unit (0.3 mL) subcut DAILY 90 01/31/22 12/10/22 Rx mL) subcutaneous pen (Tresi days #27 mL FlexTouch U-200 insulin) omeprazole 20 mg capsule,delayed 20 mg PO DAILY #90 caps 03/18/22 12/10/22 Rx release spironolactone 100 mg tablet 200 mg PO DAILY 90 days #180 tabs 04/02/22 12/10/22 Rx lisinopril 5 mg tablet 5 mg PO DAILY #90 tabs 04/09/22 12/10/22 Rx ondansetron HCl 4 mg tablet See Rx Instructions .Route 04/09/22 12/10/22 Rx .COMPLEX #15 tabs mecobalamin (vitamin B12) 5,000 See Rx Instructions PO .COMPLEX 04/17/22 12/10/22 Rx mcg disintegrating tablet #90 tabs pen needle, diabetic 32 gauge x #100 ea 05/05/22 10/08/22 Rx 1/6 (NovoFine Plus) metformin 1,000 mg tablet 1,000 mg PO BID #180 tabs 07/04/22 12/10/22 Rx blood-glucose sensor (Dexcom G6 #9 ea 07/10/22 10/08/22 Rx Sensor device) blood-glucose transmitter (Dexcom #1 ea 07/10/22 10/08/22 Rx G6 Transmitter device) dicyclomine 20 mg tablet 20 mg PO TID #270 tabs 07/23/22 12/10/22 Rx rimegepant 75 mg disintegrating See Rx Instructions .Route 07/23/22 12/10/22 Rx tablet (Nurtec ODT) .COMPLEX #8 tabs pen needle, diabetic 32 gauge x #100 ea 08/19/22 10/08/22 Rx /32 (Pen Needle) topiramate 50 mg tablet See Rx Instructions .Route 08/27/22 12/10/22 Rx .COMPLEX #270 tabs atorvastatin 10 mg tablet 10 mg PO DAILY #90 tabs 09/05/22 12/10/22 Rx semaglutide 2 mg/dose (8 mg/3 mL) 2 mg subcut WEEKLY 10/24/22 12/10/22 History subcutaneous pen injector (Ozempic) fluconazole 150 mg tablet 150 mg PO WEEKLY 12/10/22 12/10/22 History ibuprofen 800 mg tablet See Rx Instructions .Route 12/16/22 Rx .COMPLEX #90 tabs Patient hx anesthesia problems: post op nausea/vomiting Family hx anesthesia problems: none Results Review: All pre-operative results and documents have been reviewed as part of the pre-operative evaluation. [facility] Past Medical History Medical History Abdominal cramping Allergies Anxiety Change in bowel habit Depression Seeing psychiatry Diarrhea Eczema Elbow fracture, right Flatulence, eructation and gas pain Flatulence, eructation and gas pain GERD (gastroesophageal reflux disease) Headache, migraine Hyperlipidemia associated with type 2 diabetes mellitus Hypertension Kidney stones Leg fracture, left Migraine Seeing neurology KAYLEE (obstructive sleep apnea) Overweight PCOS (polycystic ovarian syndrome) PTSD (post-traumatic stress
[2022-12-20] MEDS: KETOROLAC 15 MG/ML VIAL (*BKC) IV PUSH (07:00)
[2022-12-20] MEDS: LACTATED RINGERS 1,000 ML 30 ML IV CONT ×2 (07:00→08:45)
[2022-12-20] MEDS: ACETAMINOPHEN 500 MG TABLET 1000 MG PO (07:00)
[2022-12-20] MEDS: SCOPOLAMINE 1.5 MG PATCH TRANSDERM (07:00)
--- NOTE | 2022-12-20 07:07 | WPDHPUPDATE1 ---
History and Physical Update Update Date/Time: 12/20/22 07:07 History and Physical has been reviewed, including an updated exam of the patient. There are NO changes in the patient's condition. Risks, benefits, and alternatives have been discussed and questions answered. Patient agrees to proceed with procedure.
[2022-12-20 07:12] LABS: Glucose Point of Care 199 mg/dl (65-105)
--- NOTE | 2022-12-20 08:36 | W.PM.PROC2 ---
Procedure Note - Detailed Date of Procedure 12/20/22 Pre-op Diagnosis Irg Bleeding, Pain, Possible Endometriosis Post-op Diagnosis Other (Pelvic pain/extensive adhesions/ bleeding/uterine polyp) Procedure Performed laparoscopic extensive lysis of adhesions/hysteroscopy/ polypectomy/dilatation curettage Surgeon Mason Slater MD Anesthesia General Indications cyst 37 obese female with pelvic pain and irregular bleeding Findings normal-appearing uterus ovaries. Multiple adhesions on left side pelvis to the anterior abdominal wall including: . On laparoscopy. On hysteroscopy a small polyp was seen. Description of Procedure Patient is prepped draped in normal sterile fashion placed in dorsal lithotomy position. Under excellent general trach anesthesia weighted speculum placed in posterior fornix vagina. Anterior lip of the cervix grasped with single-tooth tenaculum. The Knox's cannula inserted the cervix attached to the single-tooth to be used later for uterine manipulation. After emptying the bladder clear urine the weighted speculum was removed and gloves were changed. A supraumbilical incision made the Veress needle passed in the abdomen. Abdomen filled with CO2 gas to 15mm Hg. 5mm trocar advanced under direct visualization with the optic scope in no injury seen. Patient placed in Trendelenburg and a right lower quadrant incision made. The 5mm trocar advanced under direct visualization. Multiple adhesions were seen in the left lower quadrant incision made and the 5mm trocar advanced under direct visualization assuring no injury. Multiple adhesions were seen on the left side anteriorly to the abdominal wall and to the left adnexa. Sharp dissection was undertaken with monopolar shear scissors. Once this was clear photo documentation was undertaken. No further procedure could be undertaken after vigorous irrigation was undertaken. The lower site removed. The gas removed from the abdomen. The incisions closed with 4-0 Monocryl and glue. Attention was then turned to the hysteroscopy. The uterus sounded to 8cm. Serial dilatation with fragmented dilators performed followed by passage of the Roxy hysteroscope. A small uterine polyp could be seen at the upper fundus. Using the V -hysteroscope this was excised away. The uterus was then scraped over the entire 360?. A good grating sound was heard in the instruments were withdrawn. Patient was awakened went to recovery in satisfactory condition. All sponge, needle, instrument counts were correct. There were no immediate complications noted Estimated Blood Loss 5 Drains No Packing No Pathology Yes Complications No immediate complications Condition Stable Disposition PACU
[2022-12-20] MEDS: fentaNYL CITRATE INJ (*CRX) 100 MCG/2 ML VIAL 25 MCG IV PUSH ×4 (09:07→09:38)
--- NOTE | 2022-12-20 09:31 | SUR.PHASEI ---
0931: Dr Yeager notified of patient's blood glucose. no new orders.
[2022-12-20] MEDS: ONDANSETRON INJ 4 MG/2 ML VIAL IV PUSH (10:02)
[2022-12-20] MEDS: oxyCODONE HCL (*CRX) 5 MG TAB IR PO (10:19)
[2022-12-20 11:58] LABS: Glucose Point of Care 219 mg/dl (65-105)
== END 2022-12-20 11:15 | disposition home or self-care (01) ==
PROVIDERS: PCP Family Medicine; Visit Provider Obstetrics & Gynecology
PROC: 0UDB8ZZ Extraction of Endometrium, Via Natural or Artificial Opening Endoscopic (ICD-10-PCS; CPT 58558; principal; 2022-12-20 07:30)
DX: N93.9 Abnormal uterine and vaginal bleeding, unspecified (principal); R10.2 Pelvic and perineal pain; N73.6 Female pelvic peritoneal adhesions (postinfective); N84.0 Polyp of corpus uteri; E11.9 Type 2 diabetes mellitus without complications; I10 Essential (primary) hypertension; K21.9 Gastro-esophageal reflux disease without esophagitis; G47.33 Obstructive sleep apnea (adult) (pediatric); E28.2 Polycystic ovarian syndrome; F43.10 Post-traumatic stress disorder, unspecified; F41.9 Anxiety disorder, unspecified; F32.A Depression, unspecified; Z79.84 Long term (current) use of oral hypoglycemic drugs; Z79.4 Long term (current) use of insulin; Z79.899 Other long term (current) drug therapy; F17.210 Nicotine dependence, cigarettes, uncomplicated; E66.01 Morbid (severe) obesity due to excess calories; Z68.43 Body mass index [BMI] 50.0-59.9, adult
CPT/HCPCS: 58558; 58660; 36415; 80048; 82948; 85014; 85018; 86850; 86900; 86901; 88305; 93005; A9270; J0330; J1100; J1170; J1885; J2250; J2405; J2704; J3010; J7030; J7120

== ENCOUNTER 2022-12-23 14:21 | Inpatient (IN) | payer OTHER, MEDICAID, SELFPAY ==
[2022-12-23] VITALS (8 sets, daily range): BP systolic 108–146; BP diastolic 69–93; PULSE 126–145; RESP 16–30; TEMP 36.2–36.9; O2SAT 91–97; BMI 51.7; BMI 54.5
--- NOTE | ~2022-12-23 | CT_ITS ---
EXAMINATION: CT abdomen pelvis w con DATE: 12/23/2022 16:30 INDICATION: lower abdominal pain, post-op TECHNIQUE: Computed tomography (CT) of the abdomen and pelvis was performed with 100 mL Omnipaque-350 intravenous contrast. Automated exposure control and iterative reconstruction technique were employe d. The dose-length product was 1694.76 mGy-cm. COMPARISON: 01/01/2022. FINDINGS: Lower thorax: Bibasilar atelectasis/scar. Liver: Normal. Biliary/Gallbladder: Gallbladder is absent. No bile duct dilation. Pancreas: No mass or duct dilation. Spleen: Normal. Adrenals:Left adrenal myelolipoma. Kidneys: Simple upper pole right cyst. Upper pole right hypodensity, too small to characterize. Multi ple nonobstructing right calculi. No hydronephrosis or suspicious mass. GI tract: Mild distention of a mostly fluid-filled stomach. Multiple loops of dilated small bowel in the upper abdomen, without focal transition point. Possible wall defect in a portion of the mid sigmo id colon (axial image 166/228). Normal appendix. Mesentery/Peritoneum: Moderate volume pneumoperitoneum. More focal collection of gas surrounding the mid sigmoid colon in the mid abdomen with surrounding mesenteric fat stranding. Retroperitoneum: No mass. Pelvis: Pelvic organs are within normal limits. Soft Tissues: Post surgical changes in the anterior abdomen. Bones: No acute osseous finding. IMPRESSION: Focal apparent wall defect in the mid sigmoid colon, possibly representing a sigmoid perforation, wit h surrounding mesenteric inflammation and gas, moderate generalized pneumoperitoneum, and small bowel ileus. Reviewed, dictated and finalized at location K. TERSINKER BALANCE SCREW HOLE IMPRESSION: Focal apparent wall defect in the mid sigmoid colon, possibly representing a si gmoid perforation, with surrounding mesenteric inflammation and gas, moderate g eneralized pneumoperitoneum, and small bowel ileus.
--- NOTE | ~2022-12-23 | CT_ITS ---
EXAMINATION: CTA chest PE protocol DATE: 12/23/2022 19:31 INDICATION: chest pain with SOA TECHNIQUE: Computed tomography angiography (CTA) of the chest was performed with 100 mL Omnipaque-350 intravenous contrast timed to evaluate the pulmonary arteries. Coronal maximum intensity projection 3D-reconstructions were created by the technologist. The dose-length product (DLP) was 979.95 mGy-cm. Automated exposure control and iterative reconstruction technique were employed. COMPARISON: 11/17/2020, CT abdomen and pelvis 12/23/2022. FINDINGS: Lung parenchyma and airways: Linear scar/atelectasis in the lung bases. Pleura: Unremarkable. Thoracic inlet, axillae and chest wall: Unremarkable. Thoracic aorta: Normal. Mediastinum: Normal. Heart and pericardium: Normal. Coronary artery calcifications: Absent. Upper abdomen: Please see the prior report on the concurrent CT abdomen and pelvis. Bones: No acute osseous finding. Pulmonary arteries: Study quality: Mildly limited by quantum mottle from body habitus, but overall di agnostic. No pulmonary emboli detected. IMPRESSION: No CT evidence of acute pulmonary embolus. Reviewed, dictated and finalized at location K. UTILITY WORKER
--- NOTE | ~2022-12-23 | CT_ITS ---
CT Abdomen and Pelvis with contrast. History: Bowel perforation, status post lysis of adhesions. Spiral CT of the abdomen and pelvis was performed after the administration of intravenous contrast. 1 00 cc of Omnipaque 350 was administered intravenously without complication. Dose reduction technique was used on this scan by utilizing automated exposure control and iterative reconstruction technique. The dose-length product (DLP) was 1710.55 mGy-cm. COMPARISON: 12/25/2022 Findings: Scans through the lung bases demonstrate mild atelectatic change. The liver, spleen, pancreas, right adrenal gland, and left kidney are within normal limits. 8 mm nono bstructing right renal stone noted. Probable 1.5 cm left adrenal nodule, stable since 11/11/2019. Shanice cystectomy clips are present. No evidence of aortic aneurysm. No lymphadenopathy is seen. There is no evidence of bowel obstruction. There is an 8.0 x 3.3 cm extraluminal collection just deep to the anterior abdominal wall (axial image 153 for example), which may focally communicate with the redundant sigmoid colon. This is suspicious for abscess or contained perforation. There is additiona l scattered pneumoperitoneum predominantly in the upper abdomen, which could be sequelae recent surge ry.. Images through the pelvis were performed. Urinary bladder unremarkable. No adnexal mass evident. No a scites is seen. Impression: 8.0 x 3.3 cm extraluminal collection, as detailed above, suspicious for abscess or contained perforat ion. Additional scattered pneumoperitoneum, predominantly in the upper abdomen, which could be sequela of recent surgery, versus related to bowel perforation. Nonobstructing right nephrolithiasis. Reviewed, dictated and finalized at location . S MACHINIST Impression: 8.0 x 3.3 cm extraluminal collection, as detailed above, suspicious for abscess or contained perforation. Additional scattered pneumoperitoneum, predominantly in the upper abdomen, whic h could be sequela of recent surgery, versus related to bowel perforation. Nonobstructing right nephrolithiasis.
--- NOTE | ~2022-12-23 | CT_ITS ---
EXAMINATION: CT abdomen pelvis w con INDICATION: Possible bowel perforation, leukocytosis, abdominal pain TECHNIQUE: Computed tomographic images of the abdomen and pelvis were obtained after the administrati on of 100 cc of Omnipaque 350 intravenous contrast. The dose-length product (DLP) was 1669.75 mGy-cm. Automated exposure control and iterative reconstruction technique were employed. COMPARISON: 12/23/2022 FINDINGS: There is moderate atelectasis at the visualized lung bases. The heart size is normal. The g allbladder is surgically absent. The liver, spleen, and pancreas are normal. There is a 4.2 cm myelol ipoma of the left adrenal gland. The right adrenal gland is unremarkable. There is a 12 mm cyst of th e right kidney. Nonobstructing stones of the right kidney measure up to 7 mm. Nonobstructing stones o f the left kidney measure up to 2 mm. No pathologically enlarged abdominal or pelvic lymph nodes are identified. Again seen is widespread free intraperitoneal gas without significant change. There is a fluid collection involving the colonic mesentery in the left lower quadrant which has increased in si ze. There is persistent mild dilatation of multiple small bowel loops without focal transition point. There is mild lumbar spondylosis. IMPRESSION: 1. Persistent widespread free intraperitoneal gas without significant change. Small mesenteric fluid collection of the sigmoid mesentery in the left lower quadrant slightly increased in size. Findings r emain suggestive of bowel perforation. 2. Dilated loops of small bowel without focal transition point, consistent with ileus. Reviewed, dictated and finalized at location B. K PAVING CHECKER IMPRESSION: 1. Persistent widespread free intraperitoneal gas without significant change. S mall mesenteric fluid collection of the sigmoid mesentery in the left lower lissette drant slightly increased in size. Findings remain suggestive of bowel perforati on. 2. Dilated loops of small bowel without focal transition point, consistent with ileus.
[2022-12-23 14:54] LABS: Glucose Point of Care 293 mg/dl (65-105)
[2022-12-23] MEDS: MORPHINE SULFATE (*CRX) 4 MG/ML INJ IV PUSH ×3 (15:43→19:52)
[2022-12-23] MEDS: SODIUM CHLORIDE 0.9% IV 1,000 ML 999 ML IV CONT ×2 (15:43→18:16)
[2022-12-23] MEDS: ONDANSETRON INJ 4 MG/2 ML VIAL IV PUSH ×4 (15:43→23:42)
[2022-12-23 15:49] LABS: Basophils Absolute Auto 0.1 K/mm3 (0.0-0.1); Basophils Percent Auto 0.7 % (0.2-1.2); Eosinophils Percent Auto 0.2 % (0-4.4); Hematocrit 46.8 % (37.0-47.0); Hemoglobin 15.3 g/dL (12.0-15.0); Immature Granulocyte Absolute 0.14 K/mm3 (0.00-0.031); Immature Granulocyte Percent A 0.8 % (0-0.5); Lymphocytes Absolute Auto 0.89 K/mm3 (0.9-3.2); Lymphocytes Percent Auto 5.3 % (18.3-44.2); Mean Corpuscular HGB Conc 32.7 g/dl (32-36); Mean Corpuscular Hemoglobin 29.4 pg (26-34); Mean Corpuscular Volume 89.8 fl (80-100); Mean Platelet Volume 10.6 fl (7.4-10.4); Monocytes Absolute Auto 2.1 K/mm3 (0.1-0.6); Monocytes Percent Auto 12.7 % (2.6-8.5); Neutrophils Absolute Auto 13.6 K/mm3 (1.3-6.7); Neutrophils Percent Auto 80.3 % (45.5-73.1); Platelet Count Result 344 k/mm3 (150-375); Red Blood Count 5.21 M/mm3 (4.2-5.4); Red Cell Distribution Width 14.2 % (11.5-14.5); White Blood Count 16.9 K/mm3 (4.5-10.0)
[2022-12-23 15:59] LABS: INR 1.3; Lactic Acid Reflex 2.5 mmol/L (0.7-2.0); Prothrombin Time 15.9 Seconds (11.1-14.7)
[2022-12-23 16:00] LABS: Alanine Aminotransferase 38 U/L (6-35); Alkaline Phosphatase 60 U/L (38-126); Anion Gap 8 mmol/L (8-16); Aspartate Amino Transferase 34 U/L (14-36); Bilirubin,Total 1.7 mg/dL (0.2-1.3); Blood Urea Nitrogen 14 mg/dL (7-17); Calcium 9.1 mg/dL (8.4-10.2); Carbon Dioxide 30 mmol/L (22-30); Chloride 91 mmol/L (98-107); Estimated CRCL calculation 115 ml/min; Estimated Glomerular Filt Rate > 60; Glucose 276 mg/dL (65-110); Potassium 3.3 mmol/L (3.4-5.0); Sodium 129 mmol/L (137-145)
[2022-12-23 16:00] LABS: Partial Thromboplastin Time 27.3 SECONDS (22.3-36.8)
--- NOTE | 2022-12-23 17:34 | PM.IMHP ---
H&P: HPI History of Present Illness Date/Time: 12/23/22 17:34 Chief Complaint: Abdominal Pain and nausea Narrative: Since 37-year-old female underwent laparoscopic lysis of adhesions on Friday. She did well until today she nauseated. She had been passing gas but she has to feel she continues to be quite nauseated with abdominal pain. CT scan in the ER shows possible bowel perforation with an ileus. Her white count is elevated. She is admitted for observation and treatment. [facility] Past Medical History Medical History Abdominal cramping Allergies Anxiety Change in bowel habit Depression Seeing psychiatry Diarrhea Eczema Elbow fracture, right Flatulence, eructation and gas pain Flatulence, eructation and gas pain GERD (gastroesophageal reflux disease) Headache, migraine Hyperlipidemia associated with type 2 diabetes mellitus Hypertension Kidney stones Leg fracture, left Migraine Seeing neurology KAYLEE (obstructive sleep apnea) Overweight PCOS (polycystic ovarian syndrome) PTSD (post-traumatic stress disorder) TIA (transient ischemic attack) Type 2 diabetes mellitus Ureter obstruction Urinary tract infection UTI (urinary tract infection) Wrist fracture, bilateral Surgical History Surgical History H/O laparoscopy History of lithotripsy History of removal of cyst Hx of cholecystectomy Family History Family History Father Diabetes mellitus Hypertension Family history of elevated blood lipids Grandparent Diabetes mellitus Family history of coronary artery disease Mother Hypertension Other Cancer Cerebrovascular accident Depression Social History Social History Social History: current smoker Smoking packs per day: 0.15 Smoking cigarettes per day: 3.0 Years smoked: 8 Smoking pack-years: 1.20 Smoking status: Current some day smoker Tobacco type: cigarettes Second hand tobacco smoke exposure: No Additional smoking assessment comments: quit 2008 for 6 years and smokes socially since Alcohol intake: current Drinks per week: 10 Substance use: never Substance use type: does not use Living arrangements: with family Occupation/Education: occupation Gender identity (if verbalized by the patient): Female Sexual Orientation (if Verbalized by the Patient): Straight or Heterosexual Spiritual care concerns: No Agree to blood products: Yes Meds Home Medications and Allergies Home Medications Medication Instructions Recorded Confirmed Type hydroxyzine pamoate 25 mg capsule 25 mg PO TID PRN Anxiety 09/21/19 12/20/22 History aripiprazole 20 mg tablet 20 mg PO DAILY 07/18/20 12/20/22 History desvenlafaxine succinate 100 mg 100 mg PO DAILY 07/18/20 12/20/22 History tablet,extended release 24 hr blood sugar diagnostic (Accu-Chek #100 ea 03/02/21 12/20/22 Rx Guide test strips) lancets (Accu-Chek Softclix #100 ea 03/02/21 12/20/22 Rx Lancets) flash glucose sensor (FreeStyle #6 ea 01/16/22 12/20/22 Rx Shell 2 Sensor kit) metoprolol succinate 50 mg 50 mg PO DAILY #90 tabs 01/18/22 12/20/22 Rx tablet,extended release 24 hr empagliflozin 25 mg tablet 25 mg PO DAILY #90 tabs 01/23/22 12/20/22 Rx (Jardiance) blood-glucose meter,continuous #1 ea 01/24/22 12/20/22 Rx (Dexcom G6 Welder Operator) insulin degludec 200 unit/mL (3 60 unit (0.3 mL) subcut DAILY 90 01/31/22 12/20/22 Rx mL) subcutaneous pen ( #27 mL FlexTouch U-200 insulin) omeprazole 20 mg capsule,delayed 20 mg PO DAILY #90 caps 03/18/22 12/20/22 Rx release spironolactone 100 mg tablet 200 mg PO DAILY 90 days #180 tabs 04/02/22 12/20/22 Rx lisinopril 5 mg tablet 5 mg PO DAILY #90 tabs 04/09/22 12/20/22 Rx ondansetron HCl 4 mg tablet See Rx Instructio
--- NOTE | 2022-12-23 18:06 | ED.GENADULT ---
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 Patient had surgery on 12/20/2022. She had a D&C as well as laparoscopic exploratory surgery. She has been having increased pain since the surgery and she has been having difficulty controlling her blood sugars. She has been having nausea and vomiting as well. Denies fevers or chills or sweats. Her surgical sites are normal in appearance she reports. Pain is diffuse in her abdomen. She is also having some difficulty getting a full deep breath and has some pain in her chest she thinks from vomiting earlier. Related Data Home Medications Medication Instructions Recorded Confirmed hydroxyzine pamoate 25 mg capsule 25 mg PO TID PRN Anxiety 09/21/19 12/20/22 aripiprazole 20 mg tablet 20 mg PO DAILY 07/18/20 12/20/22 desvenlafaxine succinate 100 mg 100 mg PO DAILY 07/18/20 12/20/22 tablet,extended release 24 hr semaglutide 2 mg/dose (8 mg/3 mL) 2 mg subcut WEEKLY 10/24/22 12/20/22 subcutaneous pen injector (Ozempic) fluconazole 150 mg tablet 150 mg PO WEEKLY 12/10/22 12/20/22 Allergies Allergy/AdvReac Type Severity Reaction Status Date / Time clindamycin Allergy Mild Hives Verified 12/23/22 15:41 Sulfa (Sulfonamide Allergy Unknown Hives Verified 12/23/22 15:41 Antibiotics) Review of Systems Review of Systems: All systems reviewed & are unremarkable except as noted in HPI and below Constitutional: Constitutional: Denies chills, Denies fatigue and Denies fever(s) ENT: Denies nasal congestion and Denies sore throat Cardiovascular: Cardiovascular: Reports chest pain, Reports rapid heart rate and Denies radiating jaw, neck or arm pain Respiratory: Respiratory: Denies cough, Reports dyspnea and Denies wheezing Gastrointestinal: Gastrointestinal: Reports abdominal pain, Denies diarrhea, Denies nausea and Denies vomiting PMFSH Past Medical History Medical History Abdominal cramping Allergies Anxiety Change in bowel habit Depression Seeing psychiatry Diarrhea Eczema Elbow fracture, right Flatulence, eructation and gas pain Flatulence, eructation and gas pain GERD (gastroesophageal reflux disease) Headache, migraine Hyperlipidemia associated with type 2 diabetes mellitus Hypertension Kidney stones Leg fracture, left Migraine Seeing neurology KAYLEE (obstructive sleep apnea) Overweight PCOS (polycystic ovarian syndrome) PTSD (post-traumatic stress disorder) TIA (transient ischemic attack) Type 2 diabetes mellitus Ureter obstruction Urinary tract infection UTI (urinary tract infection) Wrist fracture, bilateral Surgical History Surgical History H/O laparoscopy History of lithotripsy History of removal of cyst Hx of cholecystectomy Family History Family History Father Diabetes mellitus Hypertension Family history of elevated blood lipids Grandparent Diabetes mellitus Family history of coronary artery disease Mother Hypertension Other Cancer Cerebrovascular accident Depression Social History Social History (Updated 12/23/22 @ 20:11 by Angela Guerrero NP) Social History: current smoker no children . 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 lives alone Smoking packs per day: 0.15 Smoking cigarettes per day: 3.0 Years smoked: 8 Smoking pack-years: 1.20 Smoking status: Current some day smoker Tobacco type: cigarettes Second hand tobacco smoke exposure: No Additional smoking assessment comments: quit 2007 for 6 years and smokes socially since Alcohol intake: current Drinks per week: 10 Substance us
[2022-12-23 18:22] LABS: Appearance Urine Slightly Cloudy (Clear); Bilirubin Urine Negative (Negative); Blood Urine 2+ (Negative); Color Urine Yellow (Yellow); Glucose Urine UA 3+ mg/dL (Negative); Ketones Urine Trace mg/dL (Negative); Leukocyte Esterase Ur Negative LEU/UL (Negative); Nitrate Urine Negative (Negative); Protein Urine 2+ mg/dL (Negative); Specific Grav Ur <= 1.005 (1.001-1.035); Urobilinogen Urine 0.2 mg/dL (<2.0)
[2022-12-23 18:31] LABS: Bacteria Urine Trace /hpf; Budding Yeast Urine Present /hpf; Mucus Urine Rare /lpf; RBC Urine 21-50 /hpf (0-2); Squamous Epithelial Cell Urine Moderate /hpf (Few)
[2022-12-23 18:37] LABS: Add Urine Microscopic? YES
[2022-12-23 18:46] LABS: Reflex Lactic Acid Yes or No Add Lactic
[2022-12-23 19:02] LABS: Influenza A QL RT-PCR Negative (Negative); Influenza B QL RT-PCR Negative (Negative); RSV RNA, RT-PCR Negative (Negative); SARS-CoV-2 RNA PCR Negative
--- NOTE | 2022-12-23 19:35 | PC.NURSE ---
Entered pt's room to introduce self to pt. Pt is CT. Pt's mother at bedside is agitated. States to this RN When is she going to get a bed? This is bullshit! Informed her that cursing will not be tolerated. Mother states Don't cock an attitude at me . Informed mother that this RN will return when pt comes back from CT and if she continues to be verbally abusive to staff she will be removed.
--- NOTE | 2022-12-23 20:08 | PM.IMCN ---
Assessment and Plan Assessment and plan (1) Post-operative complication: Code(s): T81.9XXA - Unspecified complication of procedure, initial encounter Status: Acute Assessment and Plan: -care per OBGYN. -CT a pulmonary was negative for PE -the patient was started on Zosyn -CT of abdomen Focal apparent wall defect in the mid sigmoid colon, possibly representing a sigmoid perforation, with surrounding mesenteric inflammation and gas, moderate generalized pneumoperitoneum, and small bowel ileus. -cultures are pending. Titrate antibiotics to results cultures. -repeat lactic (2) Type 2 diabetes mellitus: Code(s): E11.9 - Type 2 diabetes mellitus without complications Status: Acute Assessment and Plan: Accu-Cheks every 6 hours with sliding scale insulin check A1c. -she is NPO so her Jardiance is on hold at this time. -metformin is on hold (3) Hyperlipidemia associated with type 2 diabetes mellitus: Code(s): E11.69 - Type 2 diabetes mellitus with other specified complication; E78.5 - Hyperlipidemia, unspecified Status: Acute Assessment and Plan: Patient is NPO but she is typically on atorvastatin (4) Depression: Qualifiers: Depression Type: major depressive disorder Major depression recurrence: recurrent Active/Remission status: currently active Major depression episode severity: mild Qualified Code(s): F33.0 - Major depressive disorder, recurrent, mild Code(s): F32.9 - Major depressive disorder, single episode, unspecified Status: Acute Assessment and Plan: -patient is NPO at this time (5) Anxiety: Code(s): F41.9 - Anxiety disorder, unspecified Status: Acute Assessment and Plan: P.r.n. Ativan (6) KAYLEE (obstructive sleep apnea): Code(s): G47.33 - Obstructive sleep apnea (adult) (pediatric) Status: Acute Assessment and Plan: Titrate to home settings CPAP/BiPAP (7) Hypokalemia: Code(s): E87.6 - Hypokalemia Status: Acute Assessment and Plan: IV potassium was given. Repeat BMP in the a.m. replace as necessary HPI Data of Consult Consult date: 12/24/22 Primary Care Provider: Dana Roy MD Consult Narrative Narrative: Angela Duncan is a 37 year old female who had a laparoscopic extensive lysis of adhesive/hysteroscopy, polypectomy, dilatation curettage by Dr. lenin suárez on 12/20/2022. 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 She has been having some nausea vomiting as well. The patient stated she is also having difficulty taking deep breaths and has some chest pain. She has had poor oral intake. Her white count is noted to be 16.9. Sodium 129, potassium 3.3, blood sugar 265, lactic was 2.5 and then 2.0 and UTI versus contaminant. She was negative for influenza A/B RSV and COVID. Chest CTA shows no CT evidence of acute pulmonary embolus. CT of the abdomen and pelvis was read as the following Focal apparent wall defect in the mid sigmoid colon, possibly representing a sigmoid perforation, with surrounding mesenteric inflammation and gas, moderate generalized pneumoperitoneum, and small bowel ileus. The patient was started on Zosyn she was given 2 L of IV fluids, Zofran, morphine and IV Pepcid in the emergency room. The patient is being admitted by OBGYN as observation and the hospitalist group was asked to consult on the patient on the date of service of 12/23/2022 Review of Systems Review of Systems: See HPI All systems reviewed & are unremarkable except as noted in HPI and below Constitutional: Constitutional: Reports as per HPI and Reports no additional constitutional complaints Eyes: Eyes: Reports as per HPI and Reports no additional eye complaints ENT: Reports system reviewed and no additional complaints, except as documented and Reports Normal hearing present Cardiovascular: Cardiovascular: Reports no additional cardiovascular complaints
[2022-12-23] MEDS: FAMOTIDINE 20 MG/2 ML VIAL IV PUSH (20:58)
--- NOTE | 2022-12-23 23:36 | ADMGEN ---
This patient, Angela Duncan, was admitted to IMU Room 206-02. Patient/family oriented to hospital policies and general routines including ID bracelet, bed and alarms, visiting hours, pain management, procedures, bathroom and other care routines, personal items, smoking policy, room service/diet, and visiting hours. Information on how to activate the Rapid Response Team has been discussed. Patient/Family are encouraged to report perceived risks to care and to ask questions if they do not understand what they are told or what they should do.
[2022-12-24] VITALS (14 sets, daily range): BP systolic 115–135; BP diastolic 63–88; PULSE 108–128; RESP 16–24; TEMP 36.2–36.6; O2SAT 92–97
[2022-12-24] MEDS: LACTATED RINGERS 1,000 ML 125 ML IV CONT ×2 (00:11→09:40)
[2022-12-24] MEDS: MORPHINE SULFATE (*CRX) 4 MG/ML INJ IV PUSH ×4 (00:12→09:43)
[2022-12-24 01:34] LABS: Glucose Point of Care 265 mg/dl (65-105)
[2022-12-24] MEDS: KCL 20 MEQ/SW 100 ML 100 ML 50 MEQ IVPB (03:21)
[2022-12-24] MEDS: ONDANSETRON INJ 4 MG/2 ML VIAL IV PUSH ×3 (04:14→15:22)
[2022-12-24 05:27] LABS: Hemoglobin 13.9 g/dL (12.0-15.0); Mean Corpuscular HGB Conc 32.3 g/dl (32-36); Mean Corpuscular Hemoglobin 29.3 pg (26-34); Mean Corpuscular Volume 90.5 fl (80-100); Mean Platelet Volume 10.4 fl (7.4-10.4); Platelet Count Result 336 k/mm3 (150-375); Red Blood Count 4.75 M/mm3 (4.2-5.4); Red Cell Distribution Width 14.1 % (11.5-14.5); White Blood Count 17.2 K/mm3 (4.5-10.0)
[2022-12-24 05:36] LABS: Lactic Acid Reflex 1.6 mmol/L (0.7-2.0)
[2022-12-24 05:39] LABS: Alanine Aminotransferase 31 U/L (6-35); Albumin Level 3.6 g/dL (3.5-5.1); Alkaline Phosphatase 50 U/L (38-126); Anion Gap 9 mmol/L (8-16); Aspartate Amino Transferase 24 U/L (14-36); Bilirubin,Total 1.3 mg/dL (0.2-1.3); Blood Urea Nitrogen 15 mg/dL (7-17); Calcium 8.4 mg/dL (8.4-10.2); Carbon Dioxide 24 mmol/L (22-30); Chloride 97 mmol/L (98-107); Estimated CRCL calculation 116 ml/min; Estimated Glomerular Filt Rate > 60; Glucose 229 mg/dL (65-110); Potassium 3.7 mmol/L (3.4-5.0); Sodium 130 mmol/L (137-145)
[2022-12-24 05:55] LABS: Hemoglobin A1C 7.6 % (<5.7)
[2022-12-24 06:17] LABS: Band Neutrophils Percent 40 % (0-6); Monocytes Absolute Manual 2.92 K/mm3 (0.1-0.90); Monocytes Percent Manual 17 % (3-9); Neutrophils Absolute Manual 11.86 K/mm3 (1.7-7.2); Neutrophils Percent Manual 29 % (46-73); Platelet Clumps Present; Total Cells Counted 100
[2022-12-24 06:19] LABS: Burr Cells 1+ (NORMAL); Schistocytes None Seen (NORMAL)
[2022-12-24 06:48] LABS: Glucose Point of Care 198 mg/dl (65-105)
--- NOTE | 2022-12-24 06:52 | PC.NURSE ---
Discussed starting an NG with patient. She wants to hold off for now, if she starts having emesis again she is agreeable.
--- NOTE | 2022-12-24 07:55 | PM.GYNPNOP ---
PAYMENT SPECIALIST - A/P Postoperative Postoperative status: doing well and marginal pain control Time Spent With Patient Time: Total time spent is greater than 50% in coordination of care (as documented) at patient's floor/unit and/or counseling patient: Await consult from General surgery. Blood sugars now seemed better controlled. Time with patient: less than 15 minutes PAYMENT SPECIALIST- PN:Subj Post-Op Subjective Date/time seen: 12/24/22 07:55 Subjective: patient reports feeling better Exam Const: General: cooperative and no acute distress Nutritional Appearance: obese Orientation/consciousness: oriented to person, oriented to place and oriented to time HENMT: Head: normal to inspection Resp: Effort & Inspection: normal respiratory effort Cardio: Rate: regular rate Rhythm: regular rhythm Heart sounds: S1 normal heart sound present and S2 normal heart sound present GI: Inspection: distended, incision (wounds cleaned dry and intact), Pannus present and obesity GI Palp: Yes abdominal tenderness Auscultation: Hypoactive bowel sounds present PAYMENT SPECIALIST - PN: Obj Data Vital Signs Vital Signs: Vital Signs - 24 hr 12/23/22 14:40 12/23/22 15:50 12/23/22 15:51 Temperature 98.5 F Pulse Rate 145 H 128 H Respiratory Rate 16 22 H Blood Pressure 146/75 H 117/93 H Pulse Oximetry 95 93 96 Oxygen Delivery Room Air Room Air 12/23/22 19:58 12/23/22 20:01 12/23/22 20:16 Temperature Pulse Rate 134 H 136 H 128 H Respiratory Rate 30 H 26 H 26 H Blood Pressure 120/74 108/76 119/69 Pulse Oximetry 92 91 92 Oxygen Delivery 12/23/22 20:31 12/23/22 23:10 12/24/22 00:00 Temperature 97.1 F L Pulse Rate 129 H 126 H Respiratory Rate 24 H 26 H Blood Pressure 121/72 129/84 Pulse Oximetry 93 97 Oxygen Delivery Room Air 12/24/22 00:00 12/24/22 02:00 12/24/22 04:00 Temperature 97.7 F Pulse Rate 119 H 120 H 118 H Respiratory Rate 24 H Blood Pressure 117/71 Pulse Oximetry 97 Oxygen Delivery 12/24/22 04:00 12/24/22 04:00 12/24/22 06:00 Temperature Pulse Rate 119 H 124 H Respiratory Rate Blood Pressure Pulse Oximetry Oxygen Delivery Room Air Intake/Output Intake/Output: Intake & Output 02/11/23 02/12/23 02/13/23 02/14/23 23:59 23:59 23:59 23:59 Intake Total 2150 50 Output Total 1200 Balance 2150 -1150 Meds/Results Medications: Active Medications Generic Name Dose Route Start Last Admin Trade Name Freq PRN Reason Stop Dose Admin Dextrose 12.5 gm 12/24/22 02:27 Dextrose 50% 25 Gm/50 Ml Syringe IV PUSH PRN PRN Hypoglycemia Protocol Glucagon 1 mg 12/24/22 02:27 Glucagon For Inj 1 Mg Vial IM PRN PRN Hypoglycemia Protocol Glucose 15 gm 12/24/22 02:27 Glucose Oral Gel 15 Gm Of Glucse In 37.5 Gm Tube PO PRN PRN Hypoglycemia Protocol Hydralazine HCl 10 mg 12/24/22 02:46 Hydralazine Hcl 20 Mg/Ml Vial IV PUSH Q8H PRN Blood Pressure - High Piperacillin/Tazobactam/Dextrose 3.375 gm in 50 mls @ 100 mls/hr 12/24/22 00:00 12/24/22 06:37 Zosyn 3.375 Gm/D5w 50ml Pm IVPB 100 mls/hr Q6H RAAD Administration Acetaminophen 1,000 mg in 100 mls @ 400 mls/hr 12/23/22 18:06 12/23/22 20:27 Ofirmev 1,000 Mg Ivpb IVPB 12/24/22 18:05 Infused Q6H PRN Infusion Mild Pain (1-3) or Fever Lactated Ringer's 1,000 mls @ 125 mls/hr 12/23/22 18:10 12/24/22 00:11 Lr - Lactated Ringers Iv IV CONT 125 mls/hr .Q8H RAAD Administration Dextrose 1,000 mls @ 100 mls/hr 12/24/22 02:27 Dextrose 5% 1,000 Ml IVPB PRN PRN Hypoglycemia Protocol Insulin Aspart 2 - 5 units 12/24/22 06:00 12/24/22 06:37 Insulin Aspart (*Bkc) 100 Units/Ml SUB-Q Not Given Q6HR RAAD Protocol Lorazepam 0.5 mg 12/24/22 02:46 Lorazepam Inj (*Crx) 2 Mg/Ml Vial IV PUSH Q6H PRN Anxiety Morphine Sulfate 4 mg 12/23/22 18:06 02/14/23 06:41 Morphine Sulfate (*Crx) 4 Mg/Ml Inj I
[2022-12-24] MEDS: PANTOPRAZOLE SODIUM IV 40 MG VIAL IV PUSH ×2 (08:05→21:02)
[2022-12-24] MEDS: metroNIDAZOLE 500 MG/ISO 100ML 500 MG/100 ML BAG 100 MG IVPB ×2 (09:40→18:38)
[2022-12-24 12:09] LABS: Glucose Point of Care 214 mg/dl (65-105)
--- NOTE | 2022-12-24 12:17 | PM.CNGS ---
Assessment and Plan Assessment and plan (1) Bowel perforation: Code(s): K63.1 - Perforation of intestine (nontraumatic) Status: Acute Assessment and Plan: CT scan reviewed and suggests a focal wall defect of the mid sigmoid colon with surrounding mesenteric inflammation and gas with moderate pneumoperitoneum, possibly representing a sigmoid perforation, and additionally evidence of an ileus. There is concern that she has a bowel injury following her recent surgery. She does have associated leukocytosis and tachycardia. She has been afebrile since admission. I discussed the case and plan with Dr. Tolliver. We would recommend continuing with bowel rest, IV fluids, analgesics, and broad-spectrum IV antibiotics at this time to try and initially treat this conservatively with close monitoring. She was started on IV Zosyn and we have added IV metronidazole. Will allow her to have ice chips while NPO. Will continue to monitor with serial abdominal exams and labs. We have also switched her to IV protonix 40 mg daily. Discussed with the patient that if she does not improve with conservative treatment, then she may ultimately require exploratory surgery. We will continue to follow closely and will discuss surgical options in more detail if she does not improve with the current treatment. (2) Ileus: Code(s): K56.7 - Ileus, unspecified Status: Acute Assessment and Plan: CT suggesting ileus. No signs of bowel function since surgery. Will keep her NPO with IV fluids and analgesics for now. May need to consider NG tube placement if vomiting persists. (3) S/P laparoscopic procedure: Code(s): Z98.890 - Other specified postprocedural states Status: Acute Assessment and Plan: 12/20/22 Laparoscopic adhesiolysis, hysteroscopy, polypectomy, dilatation curettage. Pathology showed benign endometrium. (4) Type 2 diabetes mellitus: Code(s): E11.9 - Type 2 diabetes mellitus without complications Status: Acute Assessment and Plan: Increases surgical risks. (5) PCOS (polycystic ovarian syndrome): Code(s): E28.2 - Polycystic ovarian syndrome Status: Acute (6) KAYLEE (obstructive sleep apnea): Code(s): G47.33 - Obstructive sleep apnea (adult) (pediatric) Status: Acute Assessment and Plan: Increases surgical risks and risks for general anesthesia. (7) Morbid obesity with BMI of 50.0-59.9, adult: Code(s): E66.01 - Morbid (severe) obesity due to excess calories; Z68.43 - Body mass index [BMI] 50.0-59.9, adult Status: Acute Assessment and Plan: Increases surgical risks and risks for general anesthesia. (8) Depression: Qualifiers: Depression Type: major depressive disorder Major depression recurrence: recurrent Active/Remission status: currently active Major depression episode severity: mild Qualified Code(s): F33.0 - Major depressive disorder, recurrent, mild Code(s): F32.9 - Major depressive disorder, single episode, unspecified Status: Acute (9) Anxiety: Code(s): F41.9 - Anxiety disorder, unspecified Status: Acute (10) Tobacco use: Code(s): Z72.0 - Tobacco use Status: Acute Assessment and Plan: Only smokes about 1-2 cigarettes per week. Encouraged cessation. Plan I have discussed the patient's case and plan of care with Dr. Tolliver. History of Present Illness Consult details Consult date: 12/24/22 Reason for consult: other (Possible bowel perforation) Requesting physician: Rohit Parada MD Narrative: This is a 37-year-old morbidly obese woman with a history of insulin-dependent type 2 diabetes mellitus, PCOS, KAYLEE, and migraines, who who underwent a laparoscopic adhesiolysis, hysteroscopy, polypectomy, and dilatation curettage on 12/20/2022 for pelvic pain and irregular bleeding. She reports having abdominal pain near her incisions initially after surgery and on postop day 1, she noticed
[2022-12-24] MEDS: INSULIN ASPART (*BKC) 100 UNITS/ML SUB-Q (13:01)
--- NOTE | 2022-12-24 14:36 | ECG_ITS ---
Measurements Intervals [place] Rate: 117 P: 38 IA: 119 QRS: 57 QRSD: 90 T: 55 QT: 341 QTc: 476 Interpretive Statements SINUS TACHYCARDIA WITH SHORT IA INTERVAL NONSPECIFIC T-WAVE ABNORMALITY ABNORMAL RHYTHM ECG COMPARED TO ECG 12/14/2022 07:42:07 NO SIGNIFICANT CHANGES Electronically Signed On 12-24-2022 16:29:06 STUDENT LIAISON OFFICER by Kam Chan M.D.
[2022-12-24] MEDS: HYDROmorphone HCL INJ (*CRX) 1 MG/ML SYR IV PUSH ×3 (15:22→21:51)
--- NOTE | 2022-12-24 17:00 | PM.IMPN ---
Progress Note: A&P Assessment and Plan (1) Post-operative complication: Code(s): T81.9XXA - Unspecified complication of procedure, initial encounter Status: Acute Assessment and Plan: Postop day 4 from exploratory laparoscopy, noted possible sigmoid perforation, appreciate general surgery consultation Antibiotics with Rocephin and Flagyl Pain control with Dilaudid Follow-up blood cultures (2) Type 2 diabetes mellitus: Code(s): E11.9 - Type 2 diabetes mellitus without complications Status: Acute Assessment and Plan: Accu-Cheks with sliding scale insulin, hold Jardiance and metformin for now, A1c 7.6 (3) Depression: Qualifiers: Depression Type: major depressive disorder Major depression recurrence: recurrent Active/Remission status: currently active Major depression episode severity: mild Qualified Code(s): F33.0 - Major depressive disorder, recurrent, mild Code(s): F32.9 - Major depressive disorder, single episode, unspecified Status: Acute Assessment and Plan: Patient is on Pristiq and Abilify outpatient, continue unable to take p.o. (4) KAYLEE (obstructive sleep apnea): Code(s): G47.33 - Obstructive sleep apnea (adult) (pediatric) Status: Acute Assessment and Plan: Pulmonology consult pending, last titration was in 2019, current settings are IPAP 19/EPAP 15, no oxygen bleed in VBG ordered, pending (5) Hypokalemia: Code(s): E87.6 - Hypokalemia Status: Acute Assessment and Plan: Resolved, monitor (6) Hyponatremia: Code(s): E87.1 - Hypo-osmolality and hyponatremia Status: Acute Assessment and Plan: Mild, 130, monitor, improved from yesterday at 129 Plan DVT prophylaxis with SCDs GI prophylaxis with PPI Code status full code Subjective Date/time seen: 12/24/22 17:00 Interval history: No overnight events noted. No chest pain or shortness of breath. No nausea, vomiting or diarrhea. No fevers or chills. Patient states her abdominal pain and nausea are much improved, now on dilaudid. She states the morphine was giving her a headache. She also would like to use her home BiPAP machine, she called the company and they stated the settings are IPAP 19/EPAP 15, no oxygen bleed in, by Dr Rosario. This was confirmed by nursing staff and relayed to resp therapy. Patient has not had a BM in 1 week. Review of Systems Review of Systems: 12 point review of systems was assessed and was negative except as noted in the HPI Exam Narrative: General: No acute distress, alert and oriented per baseline HEENT: Atraumatic, normocephalic, mucous membranes moist CV: Regular rate and rhythm, S1, S2 Lungs: Clear to auscultation bilaterally, no rales or crackles noted, no wheezes, good air entry Abdomen: Soft, tender to palpation, bruising and laparoscopic incisions noted, clean/dry/intact, no drainage Extremities: Normal to inspection Skin: No rashes noted, some bruising noted on abdomen Psych: Euthymic, normal affect Objective Data Vital Signs Vital Signs: Vital Signs - 24 hr 12/23/22 19:58 12/23/22 20:01 12/23/22 20:16 Temperature Pulse Rate 134 H 136 H 128 H Respiratory Rate 30 H 26 H 26 H Blood Pressure 120/74 108/76 119/69 Pulse Oximetry 92 91 92 Oxygen Delivery 12/23/22 20:31 12/23/22 23:10 12/24/22 00:00 Temperature 97.1 F L Pulse Rate 129 H 126 H Respiratory Rate 24 H 26 H Blood Pressure 121/72 129/84 Pulse Oximetry 93 97 Oxygen Delivery Room Air 12/24/22 00:00 12/24/22 02:00 12/24/22 04:00 Temperature 97.7 F Pulse Rate 119 H 120 H 118 H Respiratory Rate 24 H Blood Pressure 117/71 Pulse Oximetry 97 Oxygen Delivery 12/24/22 04:00 12/24/22 04:00 12/24/22 06:00 Temperature Pulse Rate 119 H 124 H Respiratory Rate Blood Pressure Pulse Oximetry Oxygen Delivery Room Air 12/24/22 07:58
[2022-12-24 17:21] LABS: Glucose Point of Care 159 mg/dl (65-105)
[2022-12-24 17:52] LABS: Fractional Inspired Oxygen 21 %; PO2 VBG 58.9 mmHg (35.0-45.0); pH VBG 7.384 (7.300-7.400)
[2022-12-24 17:54] LABS: Device ROOM AIR
[2022-12-24 23:28] LABS: Glucose Point of Care 149 mg/dl (65-105)
[2022-12-25] VITALS (16 sets, daily range): BP systolic 105–133; BP diastolic 65–81; PULSE 95–129; RESP 16–24; TEMP 36–37.2; O2SAT 92–100
[2022-12-25] MEDS: metroNIDAZOLE 500 MG/ISO 100ML 500 MG/100 ML BAG 100 MG IVPB ×5 (00:35→23:39)
[2022-12-25] MEDS: LACTATED RINGERS 1,000 ML 125 ML IV CONT ×5 (01:54→23:42)
[2022-12-25] MEDS: HYDROmorphone HCL INJ (*CRX) 1 MG/ML SYR IV PUSH ×7 (02:15→21:50)
[2022-12-25] MEDS: ONDANSETRON INJ 4 MG/2 ML VIAL IV PUSH ×3 (02:39→21:50)
[2022-12-25 05:05] LABS: Basophils Absolute Auto 0.1 K/mm3 (0.0-0.1); Basophils Percent Auto 0.3 % (0.2-1.2); Eosinophils Absolute Auto 0.3 K/mm3 (0-0.3); Eosinophils Percent Auto 1.3 % (0-4.4); Hematocrit 37.4 % (37.0-47.0); Hemoglobin 12.1 g/dL (12.0-15.0); Immature Granulocyte Absolute 0.22 K/mm3 (0.00-0.031); Immature Granulocyte Percent A 1.1 % (0-0.5); Lymphocytes Absolute Auto 2.08 K/mm3 (0.9-3.2); Lymphocytes Percent Auto 10.6 % (18.3-44.2); Mean Corpuscular HGB Conc 32.4 g/dl (32-36); Mean Corpuscular Hemoglobin 28.9 pg (26-34); Mean Corpuscular Volume 89.3 fl (80-100); Mean Platelet Volume 10.5 fl (7.4-10.4); Monocytes Absolute Auto 2.4 K/mm3 (0.1-0.6); Monocytes Percent Auto 12.4 % (2.6-8.5); Neutrophils Absolute Auto 14.6 K/mm3 (1.3-6.7); Neutrophils Percent Auto 74.3 % (45.5-73.1); Platelet Count Result 301 k/mm3 (150-375); Red Blood Count 4.19 M/mm3 (4.2-5.4); Red Cell Distribution Width 14.1 % (11.5-14.5); White Blood Count 19.6 K/mm3 (4.5-10.0)
[2022-12-25 05:20] LABS: Alanine Aminotransferase 28 U/L (6-35); Albumin Level 3.2 g/dL (3.5-5.1); Alkaline Phosphatase 58 U/L (38-126); Anion Gap 7 mmol/L (8-16); Aspartate Amino Transferase 24 U/L (14-36); Bilirubin,Total 0.9 mg/dL (0.2-1.3); Blood Urea Nitrogen 12 mg/dL (7-17); Calcium 7.7 mg/dL (8.4-10.2); Carbon Dioxide 27 mmol/L (22-30); Chloride 99 mmol/L (98-107); Estimated CRCL calculation 130 ml/min; Estimated Glomerular Filt Rate > 60; Glucose 152 mg/dL (65-110); Potassium 3.1 mmol/L (3.4-5.0); Sodium 133 mmol/L (137-145)
--- NOTE | 2022-12-25 07:50 | PM.GYNPNOP ---
HOTBED TRANSFER OPERATOR - A/P Time Spent With Patient Time: Total time spent is greater than 50% in coordination of care (as documented) at patient's floor/unit and/or counseling patient: HOTBED TRANSFER OPERATOR- PN:Conner Post-Op Subjective Date/time seen: 12/25/22 07:50 Interval history: No overnight events noted. No chest pain or shortness of breath. No nausea, vomiting or diarrhea. No fevers or chills. Patient states her abdominal pain and nausea are much improved, now on dilaudid. She states the morphine was giving her a headache. She also would like to use her home BiPAP machine, she called the company and they stated the settings are IPAP 19/EPAP 15, no oxygen bleed in, by Dr Rosario. This was confirmed by nursing staff and relayed to resp therapy. Patient has not had a BM in 1 week. HOTBED TRANSFER OPERATOR - PN: Obj Data Vital Signs Vital Signs: Vital Signs - 24 hr 12/24/22 07:58 12/24/22 08:00 12/24/22 12:00 Temperature 97.7 F 97.6 F Pulse Rate 119 H 108 H Respiratory Rate 16 18 Blood Pressure 125/77 121/75 Pulse Oximetry 95 96 Oxygen Delivery Room Air 12/24/22 08:00 12/24/22 10:00 12/24/22 12:00 Temperature Pulse Rate 118 H 114 H Respiratory Rate Blood Pressure Pulse Oximetry Oxygen Delivery Room Air 12/24/22 16:00 12/24/22 16:00 12/24/22 12:00 Temperature 97.2 F L Pulse Rate 116 H 108 H Respiratory Rate 16 Blood Pressure 115/63 Pulse Oximetry 92 Oxygen Delivery Room Air 12/24/22 14:00 12/24/22 16:00 12/24/22 18:00 Temperature Pulse Rate 128 H 115 H 119 H Respiratory Rate Blood Pressure Pulse Oximetry Oxygen Delivery 12/24/22 20:00 12/24/22 20:00 12/24/22 20:00 Temperature 97.8 F Pulse Rate 126 H 116 H Respiratory Rate 24 H Blood Pressure 135/88 Pulse Oximetry 97 Oxygen Delivery Room Air 12/24/22 22:00 12/25/22 00:00 12/25/22 00:00 Temperature 96.8 F L Pulse Rate 115 H 110 H 129 H Respiratory Rate 20 Blood Pressure 133/81 Pulse Oximetry 95 Oxygen Delivery 12/25/22 00:20 12/24/22 23:00 12/25/22 00:00 Temperature Pulse Rate Respiratory Rate 20 Blood Pressure Pulse Oximetry 93 93 Oxygen Delivery BiPAP Room Air 12/25/22 01:53 12/25/22 03:38 12/25/22 04:00 Temperature 97.6 F Pulse Rate 108 H 125 H 115 H Respiratory Rate 24 H Blood Pressure 106/73 Pulse Oximetry 100 Oxygen Delivery 12/25/22 04:00 12/25/22 05:30 Temperature Pulse Rate 104 H Respiratory Rate Blood Pressure Pulse Oximetry Oxygen Delivery Room Air Intake/Output Intake/Output: Intake & Output 12/22/22 12/23/22 12/24/22 12/25/22 23:59 23:59 23:59 23:59 Intake Total 2150 2490 100 Output Total 1975 Balance 2150 515 100 Meds/Results Medications: Active Medications Generic Name Dose Route Start Last Admin Trade Name Freq PRN Reason Stop Dose Admin Dextrose 12.5 gm 12/24/22 02:27 Dextrose 50% 25 Gm/50 Ml Syringe IV PUSH PRN PRN Hypoglycemia Protocol Glucagon 1 mg 12/24/22 02:27 Glucagon For Inj 1 Mg Vial IM PRN PRN Hypoglycemia Protocol Glucose 15 gm 12/24/22 02:27 Glucose Oral Gel 15 Gm Of Glucse In 37.5 Gm Tube PO PRN PRN Hypoglycemia Protocol Hydralazine HCl 10 mg 12/24/22 02:46 Hydralazine Hcl 20 Mg/Ml Vial IV PUSH Q8H PRN Blood Pressure - High Hydromorphone HCl 1 mg 12/24/22 14:33 12/25/22 04:30 Hydromorphone Hcl Inj (*Crx) 1 Mg/Ml Syr IV PUSH 1 mg Q3H PRN Administration Pain Rated 7-10 Lactated Ringer's 1,000 mls @ 125 mls/hr 12/23/22 18:10 12/25/22 01:54 Lr - Lactated Ringers Iv IV CONT 125 mls/hr .Q8H RAAD Administration Dextrose 1,000 mls @ 100 mls/hr 12/24/22 02:27 Dextrose 5% 1,000 Ml IVPB PRN PRN Hypoglycemia Protocol Metronidazole 500 mg in 100 mls @ 100 mls/hr 12/24/22 10:00 12/25/22 05:29 Flagyl 500 Mg/Iso Soln 100 Ml IVPB 100 mls/hr Q6HR RAAD Administr
--- NOTE | 2022-12-25 07:51 | PM.GYNPNOP ---
REFLOW OPERATOR - A/P Time Spent With Patient Time: Total time spent is greater than 50% in coordination of care (as documented) at patient's floor/unit and/or counseling patient: Time with patient: less than 15 minutes REFLOW OPERATOR- PN:Conner Post-Op Subjective Date/time seen: 12/25/22 07:51 Interval history: No overnight events noted. No chest pain or shortness of breath. No nausea, vomiting or diarrhea. No fevers or chills. Patient states her abdominal pain and nausea are much improved, now on dilaudid. She states the morphine was giving her a headache. She also would like to use her home BiPAP machine, she called the company and they stated the settings are IPAP 19/EPAP 15, no oxygen bleed in, by Dr Rosario. This was confirmed by nursing staff and relayed to resp therapy. Patient has not had a BM in 1 week. REFLOW OPERATOR - PN: Obj Data Vital Signs Vital Signs: Vital Signs - 24 hr 12/24/22 07:58 12/24/22 08:00 12/24/22 12:00 Temperature 97.7 F 97.6 F Pulse Rate 119 H 108 H Respiratory Rate 16 18 Blood Pressure 125/77 121/75 Pulse Oximetry 95 96 Oxygen Delivery Room Air 12/24/22 08:00 12/24/22 10:00 12/24/22 12:00 Temperature Pulse Rate 118 H 114 H Respiratory Rate Blood Pressure Pulse Oximetry Oxygen Delivery Room Air 12/24/22 16:00 12/24/22 16:00 12/24/22 12:00 Temperature 97.2 F L Pulse Rate 116 H 108 H Respiratory Rate 16 Blood Pressure 115/63 Pulse Oximetry 92 Oxygen Delivery Room Air 12/24/22 14:00 12/24/22 16:00 12/24/22 18:00 Temperature Pulse Rate 128 H 115 H 119 H Respiratory Rate Blood Pressure Pulse Oximetry Oxygen Delivery 12/24/22 20:00 12/24/22 20:00 12/24/22 20:00 Temperature 97.8 F Pulse Rate 126 H 116 H Respiratory Rate 24 H Blood Pressure 135/88 Pulse Oximetry 97 Oxygen Delivery Room Air 12/24/22 22:00 12/25/22 00:00 12/25/22 00:00 Temperature 96.8 F L Pulse Rate 115 H 110 H 129 H Respiratory Rate 20 Blood Pressure 133/81 Pulse Oximetry 95 Oxygen Delivery 12/25/22 00:20 12/24/22 23:00 12/25/22 00:00 Temperature Pulse Rate Respiratory Rate 20 Blood Pressure Pulse Oximetry 93 93 Oxygen Delivery BiPAP Room Air 12/25/22 01:53 12/25/22 03:38 12/25/22 04:00 Temperature 97.6 F Pulse Rate 108 H 125 H 115 H Respiratory Rate 24 H Blood Pressure 106/73 Pulse Oximetry 100 Oxygen Delivery 12/25/22 04:00 12/25/22 05:30 Temperature Pulse Rate 104 H Respiratory Rate Blood Pressure Pulse Oximetry Oxygen Delivery Room Air Intake/Output Intake/Output: Intake & Output 12/22/22 12/23/22 12/24/22 12/25/22 23:59 23:59 23:59 23:59 Intake Total 2150 2490 100 Output Total 1975 Balance 2150 515 100 Meds/Results Medications: Active Medications Generic Name Dose Route Start Last Admin Trade Name Freq PRN Reason Stop Dose Admin Dextrose 12.5 gm 12/24/22 02:27 Dextrose 50% 25 Gm/50 Ml Syringe IV PUSH PRN PRN Hypoglycemia Protocol Glucagon 1 mg 12/24/22 02:27 Glucagon For Inj 1 Mg Vial IM PRN PRN Hypoglycemia Protocol Glucose 15 gm 12/24/22 02:27 Glucose Oral Gel 15 Gm Of Glucse In 37.5 Gm Tube PO PRN PRN Hypoglycemia Protocol Hydralazine HCl 10 mg 12/24/22 02:46 Hydralazine Hcl 20 Mg/Ml Vial IV PUSH Q8H PRN Blood Pressure - High Hydromorphone HCl 1 mg 12/24/22 14:33 12/25/22 04:30 Hydromorphone Hcl Inj (*Crx) 1 Mg/Ml Syr IV PUSH 1 mg Q3H PRN Administration Pain Rated 7-10 Lactated Ringer's 1,000 mls @ 125 mls/hr 12/23/22 18:10 12/25/22 01:54 Lr - Lactated Ringers Iv IV CONT 125 mls/hr .Q8H RAAD Administration Dextrose 1,000 mls @ 100 mls/hr 12/24/22 02:27 Dextrose 5% 1,000 Ml IVPB PRN PRN Hypoglycemia Protocol Metronidazole 500 mg in 100 mls @ 100 mls/hr 12/24/22 10:00 12/25/22 05:29 Flagyl 500 Mg/Iso Soln 100 Ml
--- NOTE | 2022-12-25 07:52 | PM.GYNPNOP ---
DIE ENGRAVER - A/P Assessment and plan (1) Bowel perforation: Code(s): K63.1 - Perforation of intestine (nontraumatic) Status: Acute Plan await decision by surgery. Postoperative Postoperative day: 5 Postoperative status: marginal pain control Postoperative plan: see orders Time Spent With Patient Time: Total time spent is greater than 50% in coordination of care (as documented) at patient's floor/unit and/or counseling patient: Time with patient: less than 15 minutes DIE ENGRAVER- PN:Subj Post-Op Subjective Date/time seen: 12/25/22 07:52 Interval history: rough night. tearful. had liquid bm Exam Const: General: cooperative and obese Orientation/consciousness: oriented to person, oriented to place and oriented to time HENMT: Head: normal to inspection Resp: Effort & Inspection: normal respiratory effort Cardio: Rate: regular rate Rhythm: regular rhythm Heart sounds: S1 normal heart sound present and S2 normal heart sound present GI: Inspection: incision (cdi) and obesity GI Palp: Yes abdominal tenderness DIE ENGRAVER - PN: Obj Data Vital Signs Vital Signs: Vital Signs - 24 hr 12/24/22 07:58 12/24/22 08:00 12/24/22 12:00 Temperature 97.7 F 97.6 F Pulse Rate 119 H 108 H Respiratory Rate 16 18 Blood Pressure 125/77 121/75 Pulse Oximetry 95 96 Oxygen Delivery Room Air 12/24/22 08:00 12/24/22 10:00 12/24/22 12:00 Temperature Pulse Rate 118 H 114 H Respiratory Rate Blood Pressure Pulse Oximetry Oxygen Delivery Room Air 12/24/22 16:00 12/24/22 16:00 12/24/22 12:00 Temperature 97.2 F L Pulse Rate 116 H 108 H Respiratory Rate 16 Blood Pressure 115/63 Pulse Oximetry 92 Oxygen Delivery Room Air 12/24/22 14:00 12/24/22 16:00 12/24/22 18:00 Temperature Pulse Rate 128 H 115 H 119 H Respiratory Rate Blood Pressure Pulse Oximetry Oxygen Delivery 12/24/22 20:00 12/24/22 20:00 12/24/22 20:00 Temperature 97.8 F Pulse Rate 126 H 116 H Respiratory Rate 24 H Blood Pressure 135/88 Pulse Oximetry 97 Oxygen Delivery Room Air 12/24/22 22:00 12/25/22 00:00 02/15/23 00:00 Temperature 96.8 F L Pulse Rate 115 H 110 H 129 H Respiratory Rate 20 Blood Pressure 133/81 Pulse Oximetry 95 Oxygen Delivery 12/25/22 00:20 12/24/22 23:00 12/25/22 00:00 Temperature Pulse Rate Respiratory Rate 20 Blood Pressure Pulse Oximetry 93 93 Oxygen Delivery BiPAP Room Air 12/25/22 01:53 12/25/22 03:38 12/25/22 04:00 Temperature 97.6 F Pulse Rate 108 H 125 H 115 H Respiratory Rate 24 H Blood Pressure 106/73 Pulse Oximetry 100 Oxygen Delivery 12/25/22 04:00 12/25/22 05:30 Temperature Pulse Rate 104 H Respiratory Rate Blood Pressure Pulse Oximetry Oxygen Delivery Room Air Intake/Output Intake/Output: Intake & Output 12/22/22 12/23/22 12/24/22 12/25/22 23:59 23:59 23:59 23:59 Intake Total 2150 2490 100 Output Total 1975 Balance 2150 515 100 Meds/Results Medications: Active Medications Generic Name Dose Route Start Last Admin Trade Name Freq PRN Reason Stop Dose Admin Dextrose 12.5 gm 12/24/22 02:27 Dextrose 50% 25 Gm/50 Ml Syringe IV PUSH PRN PRN Hypoglycemia Protocol Glucagon 1 mg 12/24/22 02:27 Glucagon For Inj 1 Mg Vial IM PRN PRN Hypoglycemia Protocol Glucose 15 gm 12/24/22 02:27 Glucose Oral Gel 15 Gm Of Glucse In 37.5 Gm Tube PO PRN PRN Hypoglycemia Protocol Hydralazine HCl 10 mg 12/24/22 02:46 Hydralazine Hcl 20 Mg/Ml Vial IV PUSH Q8H PRN Blood Pressure - High Hydromorphone HCl 1 mg 12/24/22 14:33 12/25/22 04:30 Hydromorphone Hcl Inj (*Crx) 1 Mg/Ml Syr IV PUSH 1 mg Q3H PRN Administration Pain Rated 7-10 Lactated Ringer's 1,000 mls @ 125 mls/hr 12/23/22 18:10 12/25/22 01:54 Lr - Lactated Ringers Iv IV CONT 125 mls/hr .Q8H RAAD Administration Dextr
[2022-12-25] MEDS: PANTOPRAZOLE SODIUM IV 40 MG VIAL IV PUSH ×2 (08:18→21:46)
--- NOTE | 2022-12-25 09:58 | PM.PNGS ---
Progress Note: A&P Assessment and Plan (1) Bowel perforation: Code(s): K63.1 - Perforation of intestine (nontraumatic) Status: Acute Assessment and Plan: Abdominal pain, bloating, and exam is slightly worse today. WBC up to 19. She has mild tachycardia but is still afebrile. Will get a CT abdomen and pelvis with IV contrast to re-evaluate Continue IV antibiotics. Will switch her back to IV Zosyn and metronidazole Continue IV fluids and NPO. (2) Ileus: Code(s): K56.7 - Ileus, unspecified Status: Acute Assessment and Plan: No nausea or vomiting yesterday or today. Continue NPO and IV fluids. See plan above. (3) S/P laparoscopic procedure: Code(s): Z98.890 - Other specified postprocedural states Status: Acute (4) Type 2 diabetes mellitus: Code(s): E11.9 - Type 2 diabetes mellitus without complications Status: Acute (5) Morbid obesity with BMI of 50.0-59.9, adult: Code(s): E66.01 - Morbid (severe) obesity due to excess calories; Z68.43 - Body mass index [BMI] 50.0-59.9, adult Status: Acute Plan I have discussed the patient's case and plan of care with Dr. Tolliver. Subjective Subjective Date/Time Seen: 12/25/22 09:58 Post Op day: 5 (laparoscopic adhesiolysis of pelvic adhesions) Patient reports: still having pain, no flatus and afebrile Interval history: Patient lying in bed this morning and appears uncomfortable. She reports having a rough night due to her abdominal pain. She was unable to sleep or get rest. The IV Dilaudid will slightly take the edge off her pain but is not helping much and feels she does not have good pain control. She reports her bloating is much worse today as well. She is not noticing any flatus but had one very small liquid stool overnight. She also endorses some chest pain yesterday but not this morning. Denies any nausea or vomiting. She did receive Zofran this morning but told me she requested this medication to prevent the nausea. No other complaints at this time. Review of Systems Review of Systems: All systems reviewed & are unremarkable except as noted in HPI and below Exam Const: General: acute distress mild (d/t abd pain) and uncomfortable Nutritional Appearance: obese morbidly obese Orientation/consciousness: patient oriented x3 Resp: Effort & Inspection: no respiratory distress Auscultation: clear to auscultation bilaterally Cardio: Rate: regular rate (HR 100 on excellence consultant on exam) Rhythm: regular rhythm GI: Inspection: distended, incision (incisions dry and intact,min localized ecchymosis near periumb incision) and obesity GI Palp: Yes Firmness to palpation present (GI), Yes Tenderness to palpation present (GI) (diffusely tender across the upper abdomen and entire left abdomen), Yes Guarding due to palpation present (GI) and Yes Rebound tenderness present Auscultation: Hypoactive bowel sounds present Extrem: General: no edema Psych: Mental Status: mental status grossly normal Insight: Good insight present (Psych) Objective Data Vital Signs Vital Signs: Vital Signs - 24 hr 12/24/22 12:00 12/24/22 10:00 12/24/22 12:00 Temperature 97.6 F Pulse Rate 108 H 114 H Respiratory Rate 18 Blood Pressure 121/75 Pulse Oximetry 96 Oxygen Delivery Room Air 12/24/22 16:00 12/24/22 16:00 12/24/22 12:00 Temperature 97.2 F L Pulse Rate 116 H 108 H Respiratory Rate 16 Blood Pressure 115/63 Pulse Oximetry 92 Oxygen Delivery Room Air 12/24/22 14:00 12/24/22 16:00 12/24/22 18:00 Temperature Pulse Rate 128 H 115 H 119 H Respiratory Rate Blood Pressure Pulse Oximetry Oxygen Delivery 12/24/22 20:00 12/24/22 20:00 12/24/22 20:00 Temperature 97.8 F Pulse Rate 126 H 116 H Respiratory Rate 24 H Blood Pressure 135/88 Pulse Oximetry 97 Oxygen Delivery Room Air 12/24/22 22:00 12/25/22 00:00 12/25/22 00:00 Temperature 96.8 F L Pulse R
[2022-12-25] MEDS: POTASSIUM CHLORIDE INJ 40 MEQ in SODIUM CHLORIDE 0.9% IV 500 ML 130 MEQ IVPB (11:36)
[2022-12-25 12:15] LABS: Glucose Point of Care 142 mg/dl (65-105)
--- NOTE | 2022-12-25 14:25 | PM.IMPN ---
Progress Note: A&P Assessment and Plan (1) Bowel perforation: Code(s): K63.1 - Perforation of intestine (nontraumatic) Status: Acute Assessment and Plan: CT abdomen / pelvis on admission shows focal apparent wall defect in the mid sigmoid colon possibly perforation with surrounding inflammation and gas. patient with increasing abdominal pain. Repeat CT scan of the abdomen/ pelvis today shows persistent widespread free intraperitoneal air without significant change. She has a small mesenteric fluid collection in the sigmoid mesentery concerning for bowel perforation. She also has dilated small bowel consistent with ileus. General surgery is discussing with patient about possible surgical intervention. Continue IV antibiotics as detailed below. (2) Post-operative complication: Code(s): T81.9XXA - Unspecified complication of procedure, initial encounter Status: Acute Assessment and Plan: Postop day [address] scan as above and noted possible sigmoid perforation felt related to recent procedure. Appreciate general surgery consultation WBC worse. No fevers. BCx NGTD. Antibiotics was Rocephin and Flagyl but changed back to Zosyn and Flagyl Pain control with Dilaudid As above. (3) Type 2 diabetes mellitus: Code(s): E11.9 - Type 2 diabetes mellitus without complications Status: Acute Assessment and Plan: A1c 7.6. The patient's blood glucose was reviewed on 12/25 Glucose remains well controlled. Continue AccuCheks covering with sliding scale. Hypoglycemia protocol available as needed. Continue to monitor (4) KAYLEE (obstructive sleep apnea): Code(s): G47.33 - Obstructive sleep apnea (adult) (pediatric) Status: Acute Assessment and Plan: Patient has KAYLEE on BiPAP at home. Last titration was in 2019 current BiPAP settings are IPAP 19/EPAP 15, no oxygen bleed in Pulmonology consulted Patient compliant with treatment (5) Hypokalemia: Code(s): E87.6 - Hypokalemia Status: Acute Assessment and Plan: Potassium 3.1 today. Potassium replaced. Follow. Check Mag level (6) Hyponatremia: Code(s): E87.1 - Hypo-osmolality and hyponatremia Status: Acute Assessment and Plan: Sodium dropped to 129. Better today at 133. Follow (7) Depression: Qualifiers: Depression Type: major depressive disorder Major depression recurrence: recurrent Active/Remission status: currently active Major depression episode severity: mild Qualified Code(s): F33.0 - Major depressive disorder, recurrent, mild Code(s): F32.9 - Major depressive disorder, single episode, unspecified Status: Acute Assessment and Plan: Patient is on Pristiq and Abilify at home Continue to hold since NPO Plan DVT prophylaxis with SCDs; add Lovenox GI prophylaxis with PPI Code status full code Subjective Date/time seen: 12/25/22 14:25 Interval history: 37yo female with KAYLEE, DM and HTN who underwent laparoscopic lysis of adhesions on 12/20 who returned for abdominal pain and found to have possible bowel perforation. Assuming care. Chart reviewed. Patient has been out of the bed today. She denies any shortness of breath or cough did have some chest pain earlier today. She did have a liquid stool overnight. Exam Narrative: AF 130/78 97 16 95% ra Gen - NARD sitting up in chair Chest - CTA bilaterally, nml RR CV - RRR S1/S2; Tele showing sinus tachycardia. Abd - soft, obese, diffusely tender, +BS Ext - trace-1+ pedal edema Psych - Nml mood and affect Skin - Warm and dry Objective Data Vital Signs Vital Signs: Vital Signs - 24 hr 12/24/22 16:00 12/24/22 16:00 12/24/22 16:00 Temperature 97.2 F L Pulse Rate 116 H 115 H Respiratory Rate 16 Blood Pressure 115/63 Pulse Oximetry 92 Oxygen Delivery Room Air 12/24/22 18:00 12/24/22 20:00 12/24/22 20:0
[2022-12-25] MEDS: ENOXAPARIN 40 MG/0.4 ML SYRINGE SUB-Q (15:46)
[2022-12-25 16:39] LABS: Glucose Point of Care 161 mg/dl (65-105)
[2022-12-25] MEDS: LORazepam INJ (*CRX) 2 MG/ML VIAL 0.5 MG IV PUSH (23:14)
[2022-12-25] MEDS: HYDROmorphone HCL INJ (*CRX) 1 MG/ML SYR 0.5 MG IV PUSH (23:15)
[2022-12-25 23:39] LABS: Glucose Point of Care 156 mg/dl (65-105)
[2022-12-26] VITALS (13 sets, daily range): BP systolic 101–118; BP diastolic 60–67; PULSE 90–111; RESP 18–24; TEMP 36.1–36.6; O2SAT 93–100
[2022-12-26] MEDS: metroNIDAZOLE 500 MG/ISO 100ML 500 MG/100 ML BAG 100 MG IVPB ×4 (05:19→23:44)
[2022-12-26] MEDS: HYDROmorphone HCL INJ (*CRX) 1 MG/ML SYR IV PUSH ×6 (05:19→23:36)
[2022-12-26 05:34] LABS: Basophils Absolute Auto 0.1 K/mm3 (0.0-0.1); Basophils Percent Auto 0.7 % (0.2-1.2); Eosinophils Absolute Auto 0.2 K/mm3 (0-0.3); Eosinophils Percent Auto 1.4 % (0-4.4); Hematocrit 42.1 % (37.0-47.0); Hemoglobin 12.8 g/dL (12.0-15.0); Immature Granulocyte Absolute 0.35 K/mm3 (0.00-0.031); Immature Granulocyte Percent A 2.1 % (0-0.5); Lymphocytes Percent Auto 11.5 % (18.3-44.2); Mean Corpuscular HGB Conc 30.4 g/dl (32-36); Mean Corpuscular Hemoglobin 29.4 pg (26-34); Mean Corpuscular Volume 96.8 fl (80-100); Mean Platelet Volume 10.3 fl (7.4-10.4); Monocytes Absolute Auto 1.7 K/mm3 (0.1-0.6); Monocytes Percent Auto 10.2 % (2.6-8.5); Neutrophils Absolute Auto 12.3 K/mm3 (1.3-6.7); Neutrophils Percent Auto 74.1 % (45.5-73.1); Platelet Count Result 220 k/mm3 (150-375); Red Blood Count 4.35 M/mm3 (4.2-5.4); Red Cell Distribution Width 14.3 % (11.5-14.5); White Blood Count 16.6 K/mm3 (4.5-10.0)
[2022-12-26 05:44] LABS: INR 1.2; Prothrombin Time 14.8 Seconds (11.1-14.7)
[2022-12-26 06:02] LABS: Alanine Aminotransferase 28 U/L (6-35); Albumin Level 3.1 g/dL (3.5-5.1); Alkaline Phosphatase 86 U/L (38-126); Anion Gap 7 mmol/L (8-16); Aspartate Amino Transferase 32 U/L (14-36); Bilirubin,Total 0.8 mg/dL (0.2-1.3); Blood Urea Nitrogen 8 mg/dL (7-17); Calcium 7.7 mg/dL (8.4-10.2); Carbon Dioxide 25 mmol/L (22-30); Chloride 101 mmol/L (98-107); Estimated CRCL calculation 168 ml/min; Estimated Glomerular Filt Rate > 60; Glucose 138 mg/dL (65-110); Phosphorus 3.3 mg/dL (2.5-4.5); Potassium 3.4 mmol/L (3.4-5.0); Sodium 133 mmol/L (137-145)
[2022-12-26] MEDS: PANTOPRAZOLE SODIUM IV 40 MG VIAL IV PUSH ×2 (08:53→21:06)
[2022-12-26] MEDS: LORazepam INJ (*CRX) 2 MG/ML VIAL 0.5 MG IV PUSH ×2 (09:15→23:36)
--- NOTE | 2022-12-26 09:24 | PM.GYNPNOP ---
PHARMACY GRAD INTERN - A/P Assessment and plan (1) Ileus, postoperative: Code(s): K91.89 - Other postprocedural complications and disorders of digestive system; K56.7 - Ileus, unspecified Status: Acute Plan A: POD#6, showing some improvement today. P: Appreciate input from general surgery. Will continue per their plan. Time Spent With Patient Time with patient: less than 15 minutes PHARMACY GRAD INTERN- PN:Subj Post-Op Subjective Date/time seen: 12/26/22 09:[address] Rell Slater. Her pain better today. She is hungry, passing some flatus. Exam Narrative: AVSS I/O OK WBC 16.6K, a decrease from yesterday. PHARMACY GRAD INTERN - PN: Obj Data Vital Signs Vital Signs: Vital Signs - 24 hr 12/25/22 12:00 12/25/22 12:00 12/25/22 10:00 Temperature 36.4 C L Pulse Rate 98 98 102 H Respiratory Rate 16 Blood Pressure 130/78 Pulse Oximetry 95 Oxygen Delivery 12/25/22 12:00 12/25/22 14:00 12/25/22 16:00 Temperature 36.2 C L Pulse Rate 97 106 H Respiratory Rate 16 Blood Pressure 124/76 Pulse Oximetry 97 Oxygen Delivery Room Air 12/25/22 16:00 12/25/22 16:00 12/25/22 18:00 Temperature Pulse Rate 107 H 106 H Respiratory Rate Blood Pressure Pulse Oximetry Oxygen Delivery Room Air 12/25/22 20:00 12/25/22 20:00 12/25/22 23:35 Temperature 36.4 C L Pulse Rate 104 H Respiratory Rate 20 20 Blood Pressure 128/68 Pulse Oximetry 99 92 Oxygen Delivery Room Air BiPAP 12/25/22 23:35 12/25/22 23:44 12/25/22 23:46 Temperature 36.5 C Pulse Rate 95 Respiratory Rate 20 Blood Pressure 113/65 Pulse Oximetry 92 94 Oxygen Delivery Room Air 12/25/22 20:00 12/25/22 22:00 12/26/22 00:00 Temperature Pulse Rate 101 H 100 93 Respiratory Rate Blood Pressure Pulse Oximetry Oxygen Delivery 12/26/22 01:48 12/26/22 02:30 12/26/22 04:00 Temperature Pulse Rate 96 Respiratory Rate 18 Blood Pressure Pulse Oximetry 93 Oxygen Delivery BiPAP BiPAP 12/26/22 04:00 02/16/23 04:00 12/26/22 06:00 Temperature 36.6 C Pulse Rate 90 96 93 Respiratory Rate 20 Blood Pressure 101/65 Pulse Oximetry 97 Oxygen Delivery 12/26/22 08:00 Temperature 36.4 C Pulse Rate 95 Respiratory Rate 24 H Blood Pressure 112/63 Pulse Oximetry 99 Oxygen Delivery Intake/Output Intake/Output: Intake & Output 12/23/22 12/24/22 12/25/22 12/26/22 23:59 23:59 23:59 23:59 Intake Total 2150 2490 4800 150 Output Total 1975 Balance 2150 515 4800 150 Meds/Results Medications: Active Medications Generic Name Dose Route Start Last Admin Trade Name Freq PRN Reason Stop Dose Admin Dextrose 12.5 gm 12/24/22 02:27 Dextrose 50% 25 Gm/50 Ml Syringe IV PUSH PRN PRN Hypoglycemia Protocol Enoxaparin Sodium 40 mg 12/26/22 15:00 Enoxaparin 40 Mg/0.4 Ml Syringe SUB-Q DAILY@1500 RAAD Glucagon 1 mg 12/24/22 02:27 Glucagon For Inj 1 Mg Vial IM PRN PRN Hypoglycemia Protocol Glucose 15 gm 12/24/22 02:27 Glucose Oral Gel 15 Gm Of Glucse In 37.5 Gm Tube PO PRN PRN Hypoglycemia Protocol Hydralazine HCl 10 mg 12/24/22 02:46 Hydralazine Hcl 20 Mg/Ml Vial IV PUSH Q8H PRN Blood Pressure - High Hydromorphone HCl 1 mg 12/25/22 10:21 12/26/22 08:47 Hydromorphone Hcl Inj (*Crx) 1 Mg/Ml Syr IV PUSH 1 mg Q2H PRN Administration Pain Rated 7-10 Hydromorphone HCl 0.5 mg 12/25/22 10:21 12/25/22 23:15 Hydromorphone Hcl Inj (*Crx) 1 Mg/Ml Syr IV PUSH 0.5 mg Q2H PRN Administration Pain Rated 4-6 Lactated Ringer's 1,000 mls @ 125 mls/hr 12/23/22 18:10 12/25/22 23:42 Lr - Lactated Ringers Iv IV CONT 125 mls/hr .Q8H RAAD Administration Dextrose 1,000 mls @ 100 mls/hr 12/24/22 02:27 Dextrose 5% 1,000 Ml IVPB PRN PRN Hypoglycemia Protocol Metronidazole 500 mg in 100 mls @ 100 mls/hr 12/24/22 10:00 12/26/22 05:19 Flagyl 5
--- NOTE | 2022-12-26 09:40 | PM.PNGS ---
Progress Note: A&P Assessment and Plan (1) Bowel perforation: Code(s): K63.1 - Perforation of intestine (nontraumatic) Status: Acute Assessment and Plan: Clinically improving. Abdominal pain and exam improved today. Showing some signs of bowel function. WBC down to 16 today. Tachycardia resolved and still afebrile. Will try clear liquids today and will continue IV fluids. Continue IV antibiotics (2) Ileus: Code(s): K56.7 - Ileus, unspecified Status: Acute Assessment and Plan: Passing flatus and showing some signs of improvement. Will start clear liquids today. Also receiving another 20 meq KCL this morning to replace her potassium. Monitor labs. (3) S/P laparoscopic procedure: Code(s): Z98.890 - Other specified postprocedural states Status: Acute (4) Type 2 diabetes mellitus: Code(s): E11.9 - Type 2 diabetes mellitus without complications Status: Acute (5) Morbid obesity with BMI of 50.0-59.9, adult: Code(s): E66.01 - Morbid (severe) obesity due to excess calories; Z68.43 - Body mass index [BMI] 50.0-59.9, adult Status: Acute Plan I have discussed the patient's case and plan of care with Dr. Tolliver. Subjective Subjective Date/Time Seen: 12/26/22 09:05 Patient reports: feels better, pain is less, flatus, no bowel movement and afebrile Interval history: Patient reports having some pain overnight that felt like muscle spasms in her LLQ. Her overall abdominal pain has improved, but the spasms are coming and going. She still feels bloated. She reports passing flatus. Today is the first day she is starting to have an appetite. She was able to tolerate sitting up in the chair yesterday. She also mentions having a hard time catching her breath after taking her CPAP off this morning, but believes it was because she is not used to the machine. This only lasted a few minutes and denies any other shortness of breath or chest pain. WBC count is down to 16k today. She is afebrile and her tachycardia has improved with a normal heart rate since yesterday evening. Review of Systems Review of Systems: ROS unchanged Exam Const: General: comfortable and no acute distress Nutritional Appearance: obese morbidly obese Orientation/consciousness: patient oriented x3 Resp: Effort & Inspection: no respiratory distress Auscultation: clear to auscultation bilaterally Cardio: Rate: regular rate Rhythm: regular rhythm GI: Inspection: distended, incision (incisions dry and intact,min localized ecchymosis near periumb incision) and obesity GI Palp: Yes Soft to palpation, Yes Tenderness to palpation present (GI) (tenderness slightly improved, mostly tender across her upper abdomen), Yes Guarding due to palpation present (GI) (with palpation over the epigastrum and RUQ) and No Rebound tenderness present Auscultation: Hypoactive bowel sounds present Neuro: General: moves all extremities and no focal motor deficits Extrem: General: no edema Psych: Mental Status: mental status grossly normal Insight: Good insight present (Psych) Objective Data Vital Signs Vital Signs: Vital Signs - 24 hr 12/25/22 12:00 12/25/22 12:00 12/25/22 10:00 Temperature 97.5 F L Pulse Rate 98 98 102 H Respiratory Rate 16 Blood Pressure 130/78 Pulse Oximetry 95 Oxygen Delivery 12/25/22 12:00 12/25/22 14:00 12/25/22 16:00 Temperature 97.2 F L Pulse Rate 97 106 H Respiratory Rate 16 Blood Pressure 124/76 Pulse Oximetry 97 Oxygen Delivery Room Air 12/25/22 16:00 12/25/22 16:00 12/25/22 18:00 Temperature Pulse Rate 107 H 106 H Respiratory Rate Blood Pressure Pulse Oximetry Oxygen Delivery Room Air 12/25/22 20:00 12/25/22 20:00 12/25/22 23:35 Temperature 97.5 F L Pulse Rate 104 H Respiratory Rate 20 20 Blood Pressure 128/68 Pulse Oximetry 99 92 Oxygen Delivery Room Air BiPAP 12/25/22 23:35 12/25/22 23:44 12/25/22
[2022-12-26] MEDS: KCL 20 MEQ/SW 100 ML 100 ML 50 MEQ IVPB (10:29)
--- NOTE | 2022-12-26 11:27 | PM.CNPUL ---
Assessment and Plan Assessment and plan (1) KAYLEE (obstructive sleep apnea): Code(s): G47.33 - Obstructive sleep apnea (adult) (pediatric) Status: Acute Assessment and Plan: This patient has obstructive sleep apnea, last sleep study August 10, 2020 showed an optimal pressure of BiPAP 19/15. She has been compliant using this at home. While in the hospital, she has had a post op ileus with widespread free intraperitoneal gas which could be aggravated by using BiPAP. She does not have a pneumomediastinum. Pneumomediastinum would be expected if using BiPAP were causing the free intraperitoneal gas however I recommend stopping using BiPAP while she is here, and just using O2, having her sleep with the head of the bed higher than normal to alleviate KAYLEE. This is to take away any chance that BiPAP is worsening the intraperitoneal air. Her last pulm-sleep office visit was Jun 2021, has been closely followed by Dr Roy for all her sleep needs. We can see her after discharge, see if she needs adjustment in her PAP therapy. I told her not to use PAP here in the hospital, and would avoid for a week after going home. (2) Ileus, postoperative: Code(s): K91.89 - Other postprocedural complications and disorders of digestive system; K56.7 - Ileus, unspecified Status: Acute Assessment and Plan: (3) S/P laparoscopic procedure: Code(s): Z98.890 - Other specified postprocedural states Status: Acute Assessment and Plan: History of Present Illness History of Present Illness Consult date: 12/26/22 Requesting physician: Genna Ruiz DO Chief complaint: KAYLEE, BiPAP Narrative: Date of consult December 26, 2022, 11:30 am\ reason for consult: Obstructive sleep apnea on BiPAP 19/15 at home using nasal pillows NEW: Angela Duncan is a 37-year-old woman with DM type 2, PTSD, who had laparoscopic extensive lysis of adhesions/hysteroscopy/ polypectomy/dilatation curettage on Dec 20. On Dec 23, she developed nausea, vomiting and difficulty taking in a deep breath. She is morbidly obese BMI is 54.2. She has a history of severe obstructive sleep apnea in his been on BiPAP 19/15 with a nasal pillow with good compliance at home. She had an elevated WBC with decreased oral intake. She was negative for influenza A/B RSV and COVID.? Chest CTA shows no CT evidence of acute pulmonary embolus.? She is now using a hospital device with her home BiPAP settings /15. She says that after taking the machine off in the morning she has a severe headache. She feels that the pressure is a bit too high. Today is a good day, now having an increase in her diet, less abdominal pain. CT of the abdomen and pelvis was read as the following? Focal apparent wall defect in the mid sigmoid colon, possibly representing a sigmoid perforation, with surrounding mesenteric inflammation and gas, moderate generalized pneumoperitoneum, and small bowel ileus.? The patient was started on Zosyn she was given 2 L of IV fluids, Zofran, morphine and IV Pepcid in the emergency room.? The patient is being admitted by OBGYN as observation and the hospitalist group was asked to consult on the patient on the date of service of 12/23/2022. DATA * 12/25/22 CT abdomen - ?moderate atelectasis at the visualized lung bases; No pathologically enlarged abdominal or pelvic lymph nodes are identified. Again seen is widespread free intraperitoneal gas without significant change. There is a fluid collection involving the colonic mesentery in the left lower quadrant which has increased in size. There is persistent mild dilatation of multiple small bowel loops without focal transition point. There is mild lumbar spondylosis. IMPRESSION: 1. Persistent widespread free intraperitoneal gas without
[2022-12-26 12:02] LABS: Glucose Point of Care 162 mg/dl (65-105)
[2022-12-26] MEDS: LACTATED RINGERS 1,000 ML 125 ML IV CONT (15:32)
[2022-12-26] MEDS: ENOXAPARIN 40 MG/0.4 ML SYRINGE SUB-Q (15:48)
--- NOTE | 2022-12-26 15:54 | PM.IMPN ---
Progress Note: A&P Assessment and Plan (1) Bowel perforation: Code(s): K63.1 - Perforation of intestine (nontraumatic) Status: Acute Assessment and Plan: Patietn present with abdominal pain after a laparoscopic abdominal procedure. CT abdomen / pelvis on admission shows focal apparent wall defect in the mid sigmoid colon possibly perforation with surrounding inflammation and gas. Patient had increasing abdominal pain. Repeat CT scan of the abdomen/ pelvis 12/25 shows persistent widespread free intraperitoneal air without significant change. She has a small mesenteric fluid collection in the sigmoid mesentery concerning for bowel perforation. She also has dilated small bowel consistent with ileus. General surgery following. Condition better today and liquid diet started. Continue IV antibiotics as detailed below. Advance diet per GenSurg. (2) Post-operative complication: Code(s): T81.9XXA - Unspecified complication of procedure, initial encounter Status: Acute Assessment and Plan: Postop day [address] scan as above and noted possible sigmoid perforation felt related to recent procedure. Appreciate general surgery input WBC better. No fevers. BCx NGTD. Antibiotics was Rocephin and Flagyl but changed back to Zosyn and Flagyl Pain control with Dilaudid As above. (3) Type 2 diabetes mellitus: Code(s): E11.9 - Type 2 diabetes mellitus without complications Status: Acute Assessment and Plan: A1c 7.6. The patient's blood glucose was reviewed on 12/26 Glucose remains well controlled. Continue AccuCheks covering with sliding scale. Hypoglycemia protocol available as needed. Continue to monitor (4) KAYLEE (obstructive sleep apnea): Code(s): G47.33 - Obstructive sleep apnea (adult) (pediatric) Status: Acute Assessment and Plan: Patient has KAYLEE on BiPAP at home. Last titration was in 2019 current BiPAP settings are IPAP 19/EPAP 15, no oxygen bleed in Pulmonology consulted Plan to stop BiPAP for fear that this may worsen the ileus. (5) Hypokalemia: Code(s): E87.6 - Hypokalemia Status: Acute Assessment and Plan: Potassium 3.4 today. Mag 2.0. Potassium replaced. Follow. (6) Hyponatremia: Code(s): E87.1 - Hypo-osmolality and hyponatremia Status: Acute Assessment and Plan: Sodium dropped to 129. Better today at 134 Follow (7) Depression: Qualifiers: Depression Type: major depressive disorder Major depression recurrence: recurrent Active/Remission status: currently active Major depression episode severity: mild Qualified Code(s): F33.0 - Major depressive disorder, recurrent, mild Code(s): F32.9 - Major depressive disorder, single episode, unspecified Status: Acute Assessment and Plan: Patient is on Pristiq and Abilify at home Continue to hold today but resuming in am if doing okay with oral diet. Plan DVT prophylaxis with SCDs and Lovenox GI prophylaxis with PPI Code status full code Subjective Date/time seen: 12/26/22 15:54 Interval history: 37yo female with KAYLEE, DM and HTN who underwent laparoscopic lysis of adhesions on 12/20 who returned for abdominal pain and found to have possible bowel perforation. No issues overnight. Toelrating the liquid diet. No n/v. No change in the abd pain with the diet. Passing flatus. Walking to the BR. Exam Narrative: AF 114/67 102 20 98% ra Gen - NARD Chest - CTA bilaterally, nml RR CV - RRR S1/S2; Tele showing no significant dysrhythmias Abd - obese, firm but not tense, +BS Ext - trace-1+ pedal edema Psych - Nml mood and affect Skin - Warm and dry Objective Data Vital Signs Vital Signs: Vital Signs - 24 hr 12/25/22 16:00 12/25/22 16:00 12/25/22 16:00 Temperature 97.2 F L Pulse Rate 106 H 107 H Respiratory Rate 16 Blood Pressure 124/76 Pulse Oximetry 97
[2022-12-26 16:35] LABS: Glucose Point of Care 179 mg/dl (65-105)
[2022-12-26] MEDS: HYDROmorphone HCL INJ (*CRX) 1 MG/ML SYR 0.5 MG IV PUSH (21:03)
[2022-12-26] MEDS: SALINE LOCK FLUSH 10 ML IV PUSH (21:07)
[2022-12-27] VITALS (15 sets, daily range): BP systolic 100–120; BP diastolic 60–80; PULSE 87–108; RESP 20–24; TEMP 36.1–36.6; O2SAT 92–100
[2022-12-27 00:07] LABS: Glucose Point of Care 153 mg/dl (65-105)
[2022-12-27] MEDS: LACTATED RINGERS 1,000 ML 70 ML IV CONT (03:45)
[2022-12-27] MEDS: HYDROmorphone HCL INJ (*CRX) 1 MG/ML SYR IV PUSH ×5 (04:08→20:25)
[2022-12-27] MEDS: HYDROmorphone HCL INJ (*CRX) 1 MG/ML SYR 0.5 MG IV PUSH ×3 (04:09→20:26)
[2022-12-27 05:00] LABS: Basophils Absolute Auto 0.2 K/mm3 (0.0-0.1); Basophils Percent Auto 0.8 % (0.2-1.2); Eosinophils Absolute Auto 0.3 K/mm3 (0-0.3); Eosinophils Percent Auto 1.7 % (0-4.4); Hematocrit 38.5 % (37.0-47.0); Hemoglobin 12.1 g/dL (12.0-15.0); Immature Granulocyte Absolute 0.72 K/mm3 (0.00-0.031); Immature Granulocyte Percent A 3.7 % (0-0.5); Lymphocytes Absolute Auto 2.57 K/mm3 (0.9-3.2); Lymphocytes Percent Auto 13.1 % (18.3-44.2); Mean Corpuscular HGB Conc 31.4 g/dl (32-36); Mean Corpuscular Hemoglobin 28.5 pg (26-34); Mean Corpuscular Volume 90.8 fl (80-100); Mean Platelet Volume 10.1 fl (7.4-10.4); Monocytes Absolute Auto 2.1 K/mm3 (0.1-0.6); Monocytes Percent Auto 10.7 % (2.6-8.5); Neutrophils Absolute Auto 13.8 K/mm3 (1.3-6.7); Platelet Count Result 348 k/mm3 (150-375); Red Blood Count 4.24 M/mm3 (4.2-5.4); Red Cell Distribution Width 14.3 % (11.5-14.5); White Blood Count 19.6 K/mm3 (4.5-10.0)
[2022-12-27 05:14] LABS: Alanine Aminotransferase 23 U/L (6-35); Albumin Level 2.9 g/dL (3.5-5.1); Alkaline Phosphatase 53 U/L (38-126); Anion Gap 4 mmol/L (8-16); Aspartate Amino Transferase 21 U/L (14-36); Bilirubin,Total 0.6 mg/dL (0.2-1.3); Blood Urea Nitrogen 7 mg/dL (7-17); Calcium 7.4 mg/dL (8.4-10.2); Carbon Dioxide 29 mmol/L (22-30); Chloride 102 mmol/L (98-107); Estimated CRCL calculation 146 ml/min; Estimated Glomerular Filt Rate > 60; Glucose 181 mg/dL (65-110); Potassium 3.6 mmol/L (3.4-5.0); Sodium 135 mmol/L (137-145)
[2022-12-27] MEDS: metroNIDAZOLE 500 MG/ISO 100ML 500 MG/100 ML BAG 100 MG IVPB ×3 (06:28→19:05)
[2022-12-27] MEDS: SALINE LOCK FLUSH 10 ML IV PUSH ×3 (06:45→21:15)
[2022-12-27 06:48] LABS: Platelet Estimate Adequate (Adequate); Schistocytes None Seen (NORMAL)
[2022-12-27 06:49] LABS: Atypical Lymphocytes Present
[2022-12-27 06:54] LABS: Folic Acid 9.5 ng/mL (2.76->20)
--- NOTE | 2022-12-27 07:59 | PM.IMPN ---
Progress Note: A&P Assessment and Plan (1) Bowel perforation: Code(s): K63.1 - Perforation of intestine (nontraumatic) Status: Acute Assessment and Plan: Patient presents with abdominal pain after a laparoscopic abdominal procedure. CT abdomen / pelvis on admission shows focal apparent wall defect in the mid sigmoid colon possibly perforation with surrounding inflammation and gas. Patient had increasing abdominal pain. Repeat CT scan of the abdomen/ pelvis 12/25 shows persistent widespread free intraperitoneal air without significant change. She has a small mesenteric fluid collection in the sigmoid mesentery concerning for bowel perforation. She also has dilated small bowel consistent with ileus. General surgery following. Abd pain about the same. WBC higher at 19K. Passing stool and flatus. Tolerating liquid diet. Continue IV antibiotics as detailed below. Advance diet per GenSurg. (2) Post-operative complication: Code(s): T81.9XXA - Unspecified complication of procedure, initial encounter Status: Acute Assessment and Plan: Had exploratory laparoscopy 12/20. CT scan as above and noted possible sigmoid perforation felt related to complication from the procedure. Appreciate general surgery input WBC worse but no fevers. BCx NGTD. Antibiotics was Rocephin and Flagyl but changed back to Zosyn and Flagyl Pain control with Dilaudid. Abx adjustment per GenSurg As above. (3) Type 2 diabetes mellitus: Code(s): E11.9 - Type 2 diabetes mellitus without complications Status: Acute Assessment and Plan: A1c 7.6. The patient's blood glucose was reviewed on 12/27 Glucose higher since starting clear liquids. Continue AccuCheks covering with sliding scale. Hypoglycemia protocol available as needed. Continue to monitor. Add Lantus tonight (4) KAYLEE (obstructive sleep apnea): Code(s): G47.33 - Obstructive sleep apnea (adult) (pediatric) Status: Acute Assessment and Plan: Patient has KAYLEE on BiPAP at home. Last titration was in 2019 current BiPAP settings are IPAP 19/EPAP 15, no oxygen bleed in Pulmonology consulted BiPAP stopped for fear that this may worsen the ileus. (5) Hypokalemia: Code(s): E87.6 - Hypokalemia Status: Acute Assessment and Plan: Potassium 3.6 today. Follow. (6) Hyponatremia: Code(s): E87.1 - Hypo-osmolality and hyponatremia Status: Acute Assessment and Plan: Sodium dropped to 129. Better today at 135 Follow (7) Depression: Qualifiers: Active/Remission status: currently active Depression Type: major depressive disorder Major depression episode severity: mild Major depression recurrence: recurrent Qualified Code(s): F33.0 - Major depressive disorder, recurrent, mild Code(s): F32.9 - Major depressive disorder, single episode, unspecified Status: Acute Assessment and Plan: Patient is on Pristiq and Abilify at home Review home meds and resume. Plan DVT prophylaxis with SCDs and Lovenox GI prophylaxis with PPI Code status full code Subjective Date/time seen: 12/27/22 07:59 Interval history: 37yo female with KAYLEE, DM and HTN who underwent laparoscopic lysis of adhesions on 12/20 who returned for abdominal pain and found to have possible bowel perforation. Abdominal pain is about the same. Had a bowel movement last evening. Passing flatus. Slept okay with oxygen. Had some chest pain earlier today she states was related to anxiety. Exam Narrative: AF 104/80 104 24 100% ra Gen - NARD Chest - CTA bilaterally, nml RR CV - RRR S1/S2; Tele showing no significant dysrhythmias Abd - obese, firm but not tense, +BS. bruising noted mid abdomen. Ext - 1+ pedal edema Psych - Nml mood and affect Skin - Warm and dry Objective Data Vital Signs Vital Signs: Vital Signs - 24 hr 12/26/22 08:00 12/26/22 08:00 12/26/22 12:00 Temper
[2022-12-27] MEDS: PANTOPRAZOLE SODIUM IV 40 MG VIAL IV PUSH ×2 (08:25→20:25)
[2022-12-27 12:13] LABS: Glucose Point of Care 218 mg/dl (65-105)
[2022-12-27] MEDS: INSULIN ASPART (*BKC) 100 UNITS/ML SUB-Q ×2 (12:18→19:05)
[2022-12-27] MEDS: LORazepam INJ (*CRX) 2 MG/ML VIAL 0.5 MG IV PUSH ×2 (12:28→20:18)
--- NOTE | 2022-12-27 13:03 | PM.GYNPNOP ---
COAL GASIFICATION TECHNICIAN - A/P Assessment and plan (1) Ileus, postoperative: Code(s): K91.89 - Other postprocedural complications and disorders of digestive system; K56.7 - Ileus, unspecified Status: Acute Assessment and Plan: Continue IV antibiotics, advance diet per general surgery. Will continue to follow. Time Spent With Patient Time with patient: less than 15 minutes COAL GASIFICATION TECHNICIAN- PN:Subj Post-Op Subjective Date/time seen: 12/27/22 13:03 Pain better today. Tolerating clear liquids. Exam Narrative: AVSS I/O OK COAL GASIFICATION TECHNICIAN - PN: Obj Data Vital Signs Vital Signs: Vital Signs - 24 hr 12/26/22 16:00 12/26/22 16:00 12/26/22 14:00 Temperature 36.4 C L Pulse Rate 102 H 97 Respiratory Rate 24 H Blood Pressure 118/60 Pulse Oximetry 100 Oxygen Delivery Room Air 12/26/22 16:00 12/26/22 18:00 12/26/22 20:00 Temperature 36.1 C L Pulse Rate 95 111 H 100 Respiratory Rate 22 H Blood Pressure 114/63 Pulse Oximetry 100 Oxygen Delivery 12/26/22 20:00 12/26/22 22:00 12/26/22 20:00 Temperature Pulse Rate 97 90 Respiratory Rate Blood Pressure Pulse Oximetry Oxygen Delivery Room Air 12/27/22 00:00 12/27/22 00:00 12/27/22 00:00 Temperature 36.4 C L Pulse Rate 89 87 Respiratory Rate 22 H Blood Pressure 100/60 Pulse Oximetry 97 Oxygen Delivery Room Air 12/27/22 02:00 12/27/22 04:00 12/27/22 04:00 Temperature Pulse Rate 90 97 Respiratory Rate Blood Pressure Pulse Oximetry Oxygen Delivery Room Air 12/27/22 05:59 12/27/22 06:00 12/27/22 08:00 Temperature 36.4 C L 36.6 C Pulse Rate 96 94 107 H Respiratory Rate 20 20 Blood Pressure 105/63 107/68 Pulse Oximetry 98 98 Oxygen Delivery 12/27/22 10:22 12/27/22 12:00 Temperature 36.4 C Pulse Rate 96 Respiratory Rate 20 Blood Pressure 120/68 Pulse Oximetry 92 99 Oxygen Delivery Room Air Intake/Output Intake/Output: Intake & Output 12/24/22 12/25/22 12/26/22 12/27/22 23:59 23:59 23:59 23:59 Intake Total 2490 4800 3020 3480 Output Total 1975 700 Balance 515 4800 2320 3480 Meds/Results Medications: Active Medications Generic Name Dose Route Start Last Admin Trade Name Freq PRN Reason Stop Dose Admin Dextrose 12.5 gm 12/24/22 02:27 Dextrose 50% 25 Gm/50 Ml Syringe IV PUSH PRN PRN Hypoglycemia Protocol Enoxaparin Sodium 40 mg 12/26/22 15:00 12/26/22 15:48 Enoxaparin 40 Mg/0.4 Ml Syringe SUB-Q 40 mg DAILY@1500 RAAD Administration Glucagon 1 mg 12/24/22 02:27 Glucagon For Inj 1 Mg Vial IM PRN PRN Hypoglycemia Protocol Glucose 15 gm 12/24/22 02:27 Glucose Oral Gel 15 Gm Of Glucse In 37.5 Gm Tube PO PRN PRN Hypoglycemia Protocol Hydralazine HCl 10 mg 12/24/22 02:46 Hydralazine Hcl 20 Mg/Ml Vial IV PUSH Q8H PRN Blood Pressure - High Hydromorphone HCl 1 mg 12/25/22 10:21 12/27/22 09:27 Hydromorphone Hcl Inj (*Crx) 1 Mg/Ml Syr IV PUSH 1 mg Q2H PRN Administration Pain Rated 7-10 Hydromorphone HCl 0.5 mg 12/25/22 10:21 12/27/22 06:37 Hydromorphone Hcl Inj (*Crx) 1 Mg/Ml Syr IV PUSH 0.5 mg Q2H PRN Administration Pain Rated 4-6 Lactated Ringer's 1,000 mls @ 70 mls/hr 12/23/22 18:10 12/27/22 03:45 Lr - Lactated Ringers Iv IV CONT 70 mls/hr .[id number] RAAD Administration Dextrose 1,000 mls @ 100 mls/hr 12/24/22 02:27 Dextrose 5% 1,000 Ml IVPB PRN PRN Hypoglycemia Protocol Metronidazole 500 mg in 100 mls @ 100 mls/hr 12/24/22 10:00 12/27/22 12:18 Flagyl 500 Mg/Iso Soln 100 Ml IVPB 100 mls/hr Q6HR RAAD Administration Piperacillin/Tazobactam/Dextrose 3.375 gm in 50 mls @ 100 mls/hr 12/25/22 12:00 12/27/22 12:06 Zosyn 3.375 Gm/D5w 50ml Pm IVPB 100 mls/hr Q6HR RAAD Administration Acetaminophen 1,000 mg in 100 mls @ 400 mls/hr 12/26/22 14:00 12/27/22 12:06 Ofirmev 1,000 Mg Ivpb IVPB 12/27/22 13:
--- NOTE | 2022-12-27 13:36 | PM.PNPUL ---
Progress Note: A&P Assessment and Plan (1) KAYLEE (obstructive sleep apnea): Code(s): G47.33 - Obstructive sleep apnea (adult) (pediatric) Status: Acute Assessment and Plan: This patient has obstructive sleep apnea, last sleep study August 10, 2020 showed an optimal pressure of BiPAP . She slept better last night using O2 at 2 L/min instead of BiPAP. She has had a post op ileus with widespread free intraperitoneal gas, low risk but not zero risk aggravated by using BiPAP. Continue to use O2 with sleep, having her sleep with the head of the bed higher than normal to alleviate KAYLEE. We can see her after discharge, see if she needs adjustment in her PAP therapy. I told her not to use PAP here in the hospital. (2) Ileus, postoperative: Code(s): K91.89 - Other postprocedural complications and disorders of digestive system; K56.7 - Ileus, unspecified Status: Acute Assessment and Plan: Time Spent With Patient Time with patient: less than 15 minutes Subjective Date/time seen: 12/27/22 13:36 Interval history: Hospital follow up : This 37 year-old woman is seen in follow up for hypoxemia, severe KAYLEE on BiPAP ; she developed a post op ileus with hypoxemia, treated with IV antibiotics. She used O2 last night instead of BiPAP, slept better, did not have a headache. She is looking forward to having her diet advanced. Her Jerry is sitting at bedside. WBC is a little higher, 19.6. She is not having fevers. She is on room air now, saturation is 93-97%. 12/20 - laparoscopic extensive lysis of adhesions/hysteroscopy/ polypectomy/dilatation curettage 12/23 - nausea, vomiting and difficulty taking in a deep breath, high wbc, poor oral intake, post op ileus. 12/25 CT with widespread intraperitoneal gas, fluid collection involving colonic mesentery LLL DATA *?12/25/22 CT abdomen?-??moderate atelectasis at the visualized lung bases; No pathologically enlarged abdominal or pelvic lymph nodes are identified. Again seen is widespread free intraperitoneal gas without significant change. There is a fluid collection involving the colonic mesentery in the left lower quadrant which has increased in size. There is persistent mild dilatation of multiple small bowel loops without focal transition point. There is mild lumbar spondylosis. IMPRESSION: 1. Persistent widespread free intraperitoneal gas without significant change. Small mesenteric fluid collection of the sigmoid mesentery in the left lower quadrant slightly increased in size. Findings remain suggestive of bowel perforation. 2. Dilated loops of small bowel without focal transition point, consistent with ileus. *??12/23/2022 CT abdomen:?Focal apparent wall defect in the mid sigmoid colon, possibly representing a sigmoid perforation, with surrounding mesenteric inflammation and gas, moderate generalized pneumoperitoneum, and small bowel ileus. Review of Systems Review of Systems: All systems reviewed & are unremarkable except as noted in HPI and below Exam Narrative: GEN: Alert, oriented, not in distress. Sitting up in bed eating lunch. HEENT: pupils are equal, EOMI, symmetrical face; oral membranes moist. NECK: Trachea is midline CHEST: Equal air entry, symmetric excursion, improved air movement in bases, clear breath sounds CV: Regular S1S2 no m/g/r ABD : few bowels sounds Extremities : no clubbing or cyanosis, no edema PSYCH: normal thought and speech Objective Data Vital Signs Vital Signs: Vital Signs - 24 hr 12/26/22 16:00 12/26/22 16:00 12/26/22 14:00 Temperature 36.4 C L Pulse Rate 102 H 97 Respiratory Rate 24 H Blood Pressure 118/60 Pulse Oximetry 100 Oxygen Delivery Room Air 12/26/22 16:00 12/26/22 18:00 12/26/22 20:00 Temperature 36.1 C L Pulse Rate 95 111 H 100 Respiratory Rate
[2022-12-27] MEDS: ENOXAPARIN 40 MG/0.4 ML SYRINGE SUB-Q (16:02)
[2022-12-27 18:36] LABS: Glucose Point of Care 215 mg/dl (65-105)
--- NOTE | 2022-12-27 18:37 | PM.PNGS ---
Progress Note: A&P Assessment and Plan (1) Bowel perforation: Code(s): K63.1 - Perforation of intestine (nontraumatic) Status: Acute Assessment and Plan: Will continue to monitor her white blood cell count for now. Clinically her status has not changed she has been very stable. Her bowel function has returned and she has had a bowel movement which is a good sign that she may be able to be managed non operatively. Continue her IV antibiotics as they are currently being given. Was stay on clear liquids today and perhaps advanced to full liquids tomorrow. Subjective Subjective Date/Time Seen: 12/27/22 18:37 Interval history: The patient remains stable today. She has been having some anxiety issues overnight and this morning. She has been tolerating clear liquids and denies any nausea or vomiting. She did have a bowel movement which was partially formed. Her pain is about the same as yesterday. [place] [address] [place] [address] a day but she has remained afebrile and hemodynamically stable. Exam Narrative: The abdomen is soft and minimally distended. She still has mild tenderness in the lower abdomen without guarding or generalized peritoneal signs. Objective Data Vital Signs Vital Signs: Vital Signs - 24 hr 12/26/22 20:00 12/26/22 20:00 12/26/22 22:00 Temperature 36.1 C L Pulse Rate 100 97 90 Respiratory Rate 22 H Blood Pressure 114/63 Pulse Oximetry 100 Oxygen Delivery 12/26/22 20:00 12/27/22 00:00 12/27/22 00:00 Temperature 36.4 C L Pulse Rate 89 87 Respiratory Rate 22 H Blood Pressure 100/60 Pulse Oximetry 97 Oxygen Delivery Room Air 12/27/22 00:00 12/27/22 02:00 12/27/22 04:00 Temperature Pulse Rate 90 97 Respiratory Rate Blood Pressure Pulse Oximetry Oxygen Delivery Room Air 12/27/22 04:00 12/27/22 05:59 12/27/22 06:00 Temperature 36.4 C L Pulse Rate 96 94 Respiratory Rate 20 Blood Pressure 105/63 Pulse Oximetry 98 Oxygen Delivery Room Air 12/27/22 08:00 12/27/22 10:22 12/27/22 12:00 Temperature 36.6 C 36.4 C Pulse Rate 107 H 96 Respiratory Rate 20 20 Blood Pressure 107/68 120/68 Pulse Oximetry 98 92 99 Oxygen Delivery Room Air 12/27/22 08:00 12/27/22 10:00 12/27/22 12:00 Temperature Pulse Rate 95 91 99 Respiratory Rate Blood Pressure Pulse Oximetry Oxygen Delivery 12/27/22 14:00 12/27/22 16:00 12/27/22 16:00 Temperature Pulse Rate 103 H 105 H Respiratory Rate Blood Pressure Pulse Oximetry Oxygen Delivery Room Air 12/27/22 16:00 Temperature 36.1 C L Pulse Rate 104 H Respiratory Rate 24 H Blood Pressure 104/80 Pulse Oximetry 100 Oxygen Delivery Intake/Output Intake/Output: Intake & Output 12/24/22 12/25/22 12/26/22 12/27/22 23:59 23:59 23:59 23:59 Intake Total 2490 4800 3020 3630 Output Total 1975 700 Balance 515 4800 2320 3630 Meds/Results Medications: Active Medications Generic Name Dose Route Start Last Admin Trade Name Freq PRN Reason Stop Dose Admin Dextrose 12.5 gm 12/24/22 02:27 Dextrose 50% 25 Gm/50 Ml Syringe IV PUSH PRN PRN Hypoglycemia Protocol Enoxaparin Sodium 40 mg 12/26/22 15:00 12/27/22 16:02 Enoxaparin 40 Mg/0.4 Ml Syringe SUB-Q 40 mg DAILY@1500 RAAD Administration Glucagon 1 mg 12/24/22 02:27 Glucagon For Inj 1 Mg Vial IM PRN PRN Hypoglycemia Protocol Glucose 15 gm 12/24/22 02:27 Glucose Oral Gel 15 Gm Of Glucse In 37.5 Gm Tube PO PRN PRN Hypoglycemia Protocol Hydralazine HCl 10 mg 12/24/22 02:46 Hydralazine Hcl 20 Mg/Ml Vial IV PUSH Q8H PRN Blood Pressure - High Hydromorphone HCl 1 mg 12/25/22 10:21 12/27/22 16:11 Hydromorphone Hcl Inj (*Crx) 1 Mg/Ml Syr IV PUSH 1 mg Q2H PRN Administration Pain Rated 7-10 Hydromorphone HCl 0.5 mg 12/25/22 10:21 12/27/22 06:37 Allyn
[2022-12-27] MEDS: INSULIN GLARGINE (*BKC) 100 UNITS/ML SUB-Q (20:36)
[2022-12-27] MEDS: TOPIRAMATE 25 MG TABLET 50 MG BY MOUTH (20:40)
[2022-12-27 23:58] LABS: Glucose Point of Care 218 mg/dl (65-105)
[2022-12-28] VITALS (13 sets, daily range): BP systolic 98–119; BP diastolic 52–71; PULSE 92–112; RESP 20–24; TEMP 36.1–36.6; O2SAT 98–100
[2022-12-28] MEDS: metroNIDAZOLE 500 MG/ISO 100ML 500 MG/100 ML BAG 100 MG IVPB ×5 (00:35→23:54)
[2022-12-28] MEDS: INSULIN ASPART (*BKC) 100 UNITS/ML SUB-Q ×2 (00:38→12:07)
[2022-12-28] MEDS: HYDROmorphone HCL INJ (*CRX) 1 MG/ML SYR IV PUSH ×3 (02:15→17:57)
[2022-12-28] MEDS: HYDROmorphone HCL INJ (*CRX) 1 MG/ML SYR 0.5 MG IV PUSH (02:16)
[2022-12-28] MEDS: SALINE LOCK FLUSH 10 ML IV PUSH ×3 (06:00→21:41)
[2022-12-28 06:41] LABS: Basophils Absolute Auto 0.2 K/mm3 (0.0-0.1); Basophils Percent Auto 0.9 % (0.2-1.2); Eosinophils Absolute Auto 0.4 K/mm3 (0-0.3); Eosinophils Percent Auto 1.8 % (0-4.4); Hematocrit 38.8 % (37.0-47.0); Hemoglobin 12.3 g/dL (12.0-15.0); Immature Granulocyte Absolute 1.12 K/mm3 (0.00-0.031); Immature Granulocyte Percent A 5.4 % (0-0.5); Lymphocytes Absolute Auto 3.16 K/mm3 (0.9-3.2); Lymphocytes Percent Auto 15.3 % (18.3-44.2); Mean Corpuscular HGB Conc 31.7 g/dl (32-36); Mean Corpuscular Hemoglobin 28.9 pg (26-34); Mean Corpuscular Volume 91.1 fl (80-100); Monocytes Absolute Auto 1.9 K/mm3 (0.1-0.6); Neutrophils Absolute Auto 13.9 K/mm3 (1.3-6.7); Neutrophils Percent Auto 67.6 % (45.5-73.1); Platelet Count Result 376 k/mm3 (150-375); Red Blood Count 4.26 M/mm3 (4.2-5.4); Red Cell Distribution Width 14.4 % (11.5-14.5); White Blood Count 20.6 K/mm3 (4.5-10.0)
[2022-12-28 06:54] LABS: Alanine Aminotransferase 21 U/L (6-35); Albumin Level 2.7 g/dL (3.5-5.1); Alkaline Phosphatase 50 U/L (38-126); Anion Gap 5 mmol/L (8-16); Aspartate Amino Transferase 21 U/L (14-36); Bilirubin,Total 0.4 mg/dL (0.2-1.3); Blood Urea Nitrogen 4 mg/dL (7-17); Calcium 7.3 mg/dL (8.4-10.2); Carbon Dioxide 27 mmol/L (22-30); Chloride 104 mmol/L (98-107); Estimated CRCL calculation 168 ml/min; Estimated Glomerular Filt Rate > 60; Glucose 184 mg/dL (65-110); Potassium 3.6 mmol/L (3.4-5.0); Sodium 136 mmol/L (137-145)
--- NOTE | 2022-12-28 08:27 | PM.IMPN ---
Progress Note: A&P Assessment and Plan (1) Bowel perforation: Code(s): K63.1 - Perforation of intestine (nontraumatic) Status: Acute Assessment and Plan: Patient presents with abdominal pain after a laparoscopic abdominal procedure. CT abdomen / pelvis on admission shows focal apparent wall defect in the mid sigmoid colon possibly perforation with surrounding inflammation and gas. Patient had increasing abdominal pain. Repeat CT scan of the abdomen/ pelvis 12/25 shows persistent widespread free intraperitoneal air without significant change. She has a small mesenteric fluid collection in the sigmoid mesentery concerning for bowel perforation. She also has dilated small bowel consistent with ileus. General surgery following. Abd pain better and having BMs. WBC higher at 20.6K but leveling off. Passing stool and flatus. Tolerating liquid diet. Continue IV antibiotics as detailed below. Advance diet per GenSurg. (2) Post-operative complication: Code(s): T81.9XXA - Unspecified complication of procedure, initial encounter Status: Acute Assessment and Plan: Had exploratory laparoscopy 12/20. CT scan as above and noted possible sigmoid perforation felt related to complication from the procedure. Appreciate general surgery input Antibiotics was Rocephin and Flagyl but changed back to Zosyn and Flagyl Pain control with Dilaudid. WBC worse again today but no fevers. BCx NGTD. Discussed with GenSurg Plan to repeat CT if WBC worse tomorrow. Would broaden abx coverage as well. As above. (3) Type 2 diabetes mellitus: Code(s): E11.9 - Type 2 diabetes mellitus without complications Status: Acute Assessment and Plan: A1c 7.6. The patient's blood glucose was reviewed on 12/28 Glucose better but still poorly controlled. Continue AccuCheks covering with sliding scale. Hypoglycemia protocol available as needed. Continue to monitor. Advance Lantus tonight (4) KAYLEE (obstructive sleep apnea): Code(s): G47.33 - Obstructive sleep apnea (adult) (pediatric) Status: Acute Assessment and Plan: Patient has KAYLEE on BiPAP at home. Last titration was in 2019 current BiPAP settings are IPAP 19/EPAP 15, no oxygen bleed in Pulmonology consulted BiPAP stopped for fear that this may worsen the ileus. (5) Hypokalemia: Code(s): E87.6 - Hypokalemia Status: Acute Assessment and Plan: Potassium 3.6 today. Follow. (6) Hyponatremia: Code(s): E87.1 - Hypo-osmolality and hyponatremia Status: Acute Assessment and Plan: Sodium dropped to 129. Better today at 136 Follow (7) Depression: Qualifiers: Active/Remission status: currently active Depression Type: major depressive disorder Major depression episode severity: mild Major depression recurrence: recurrent Qualified Code(s): F33.0 - Major depressive disorder, recurrent, mild Code(s): F32.9 - Major depressive disorder, single episode, unspecified Status: Acute Assessment and Plan: Patient is on Pristiq and Abilify at home Abilify added yesterday. Will resume Pristiq Plan DVT prophylaxis with SCDs and Lovenox GI prophylaxis with PPI Code status full code Subjective Date/time seen: 12/28/22 08:27 Interval history: 37yo female with KAYLEE, DM and HTN who underwent laparoscopic lysis of adhesions on 12/20 who returned for abdominal pain and found to have possible bowel perforation. Feeling better. No nausea or vomiting with eating. No chest pain. No orthopnea. Denies feeling short of breath. She was anxious last night but feels better today. She still having bowel movements. She is walking to the bathroom. Exam Narrative: AF 98.52 98 24 99% ra Gen - NARD Chest - CTA bilaterally, nml RR CV - RRR S1/S2; Tele showing no significant dysrhythmias Abd - obese, firm and tympanitic upper abdomen, +BS. bruising noted mid abdomen. Incisi
[2022-12-28] MEDS: oxyCODONE/ACETAMINOPHEN (*CRX) 10-325 MG TABLET 1 TAB PO ×3 (09:13→23:48)
[2022-12-28] MEDS: TOPIRAMATE 25 MG TABLET BY MOUTH (09:14)
[2022-12-28] MEDS: PANTOPRAZOLE SODIUM IV 40 MG VIAL IV PUSH ×2 (09:14→21:24)
[2022-12-28] MEDS: ARIPiprazole 10 MG TABLET 20 MG PO (09:14)
[2022-12-28] MEDS: METOPROLOL SUCCINATE EXT REL 12.5 MG TABCR PO (09:15)
--- NOTE | 2022-12-28 10:41 | PM.GYNPNOP ---
TAXIMETER REPAIRER - A/P Assessment and plan (1) Ileus, postoperative: Code(s): K91.89 - Other postprocedural complications and disorders of digestive system; K56.7 - Ileus, unspecified Status: Acute Assessment and Plan: She continues to improve clinically. Appreciate input and care from General Surgery. Continue plan per their instruction. Postoperative Postoperative day: 8 Time Spent With Patient Time with patient: less than 15 minutes TAXIMETER REPAIRER- PN:Conner Post-Op Subjective Date/time seen: 12/28/22 10:41 Still has spasms intermittently, sharp pains in the lower abdomen. Pain medication seems adequate. She is having bowel movements and is hoping to be advanced to full liquids today. Exam Narrative: AVSS I/O OK TAXIMETER REPAIRER - PN: Obj Data Vital Signs Vital Signs: Vital Signs - 24 hr 12/27/22 12:00 12/27/22 12:00 12/27/22 14:00 Temperature 36.4 C Pulse Rate 96 99 103 H Respiratory Rate 20 Blood Pressure 120/68 Pulse Oximetry 99 Oxygen Delivery 12/27/22 16:00 12/27/22 16:00 12/27/22 16:00 Temperature 36.1 C L Pulse Rate 105 H 104 H Respiratory Rate 24 H Blood Pressure 104/80 Pulse Oximetry 100 Oxygen Delivery Room Air 12/27/22 18:00 12/27/22 19:59 12/28/22 00:00 Temperature 36.4 C 36.5 C Pulse Rate 101 H 108 H 103 H Respiratory Rate 20 20 Blood Pressure 105/69 119/71 Pulse Oximetry 99 99 Oxygen Delivery 12/27/22 20:00 12/27/22 22:00 12/28/22 00:00 Temperature Pulse Rate 107 H 105 H 103 H Respiratory Rate Blood Pressure Pulse Oximetry Oxygen Delivery 12/28/22 02:00 12/27/22 20:00 12/28/22 00:00 Temperature Pulse Rate 108 H Respiratory Rate Blood Pressure Pulse Oximetry Oxygen Delivery Room Air Room Air 12/28/22 04:00 12/28/22 04:00 12/28/22 04:00 Temperature 36.6 C Pulse Rate 98 99 Respiratory Rate 22 H Blood Pressure 112/65 Pulse Oximetry 100 Oxygen Delivery Room Air 12/28/22 06:00 12/28/22 09:15 12/28/22 08:00 Temperature 36.1 C L Pulse Rate 100 112 H 92 Respiratory Rate 20 Blood Pressure 114/69 Pulse Oximetry 98 Oxygen Delivery Intake/Output Intake/Output: Intake & Output 12/25/22 12/26/22 12/27/22 12/28/22 23:59 23:59 23:59 23:59 Intake Total 4800 3020 6360 1230 Output Total 700 Balance 4800 2320 6360 1230 Meds/Results Medications: Active Medications Generic Name Dose Route Start Last Admin Trade Name Freq PRN Reason Stop Dose Admin Aripiprazole 20 mg 12/28/22 09:00 12/28/22 09:14 Aripiprazole 10 Mg Tablet PO 01/27/23 08:59 20 mg DAILY RAAD Administration Dextrose 12.5 gm 12/24/22 02:27 Dextrose 50% 25 Gm/50 Ml Syringe IV PUSH PRN PRN Hypoglycemia Protocol Enoxaparin Sodium 40 mg 12/26/22 15:00 12/27/22 16:02 Enoxaparin 40 Mg/0.4 Ml Syringe SUB-Q 40 mg DAILY@1500 RAAD Administration Glucagon 1 mg 12/24/22 02:27 Glucagon For Inj 1 Mg Vial IM PRN PRN Hypoglycemia Protocol Glucose 15 gm 12/24/22 02:27 Glucose Oral Gel 15 Gm Of Glucse In 37.5 Gm Tube PO PRN PRN Hypoglycemia Protocol Hydralazine HCl 10 mg 12/24/22 02:46 Hydralazine Hcl 20 Mg/Ml Vial IV PUSH Q8H PRN Blood Pressure - High Hydromorphone HCl 1 mg 12/25/22 10:21 12/28/22 02:15 Hydromorphone Hcl Inj (*Crx) 1 Mg/Ml Syr IV PUSH 1 mg Q2H PRN Administration Breakthrough Pain Dextrose 1,000 mls @ 100 mls/hr 12/24/22 02:27 Dextrose 5% 1,000 Ml IVPB PRN PRN Hypoglycemia Protocol Metronidazole 500 mg in 100 mls @ 100 mls/hr 12/24/22 10:00 12/28/22 05:59 Flagyl 500 Mg/Iso Soln 100 Ml IVPB 100 mls/hr Q6HR RAAD Administration Piperacillin/Tazobactam/Dextrose 3.375 gm in 50 mls @ 100 mls/hr 12/25/22 12:00 12/28/22 05:58 Zosyn 3.375 Gm/D5w 50ml Pm IVPB 100 mls/hr Q6HR RAAD Administration Insulin Aspart 2 - 5 units 12/24/22 06:00 12/28/22 08
[2022-12-28] MEDS: NEOMYCIN/POLYMYXIN/BACITRACIN OINTMENT 15 GM TUBE 1 APPLIC TOPICAL ×2 (12:06→21:23)
[2022-12-28 12:55] LABS: Glucose Point of Care 216 mg/dl (65-105)
--- NOTE | 2022-12-28 13:47 | PM.PNGS ---
Progress Note: A&P Assessment and Plan (1) Bowel perforation: Code(s): K63.1 - Perforation of intestine (nontraumatic) Status: Acute Assessment and Plan: Patient feeling a little better but WBC increasing. She remains afebrile and bowels are moving. She was noncompliant with diet yesterday and ate vegetable soup while on clear liquid diet. She has been on clears today and seems to be tolerating. Will try full liquids for dinner. Repeat labs in AM--if WBC continues to rise, will back down to NPO and get repeat CT. Continue IV Zosyn and Flagyl. Discussed importance of bowel rest and slow advancement of diet--if she ends up needing surgery, she will likely need a diverting colostomy which would probably be permanent given her morbid obesity and comorbidities. Patient voiced her understanding. (2) Tobacco use: Code(s): Z72.0 - Tobacco use Status: Acute (3) Morbid obesity with BMI of 50.0-59.9, adult: Code(s): E66.01 - Morbid (severe) obesity due to excess calories; Z68.43 - Body mass index [BMI] 50.0-59.9, adult Status: Acute (4) S/P laparoscopic procedure: Code(s): Z98.890 - Other specified postprocedural states Status: Acute Subjective Subjective Date/Time Seen: 12/28/22 13:47 Interval history: Patient non compliant and ate vegetable soup last night while on clear liquid diet only. She is asking about increasing her diet. Bowels are moving. She is still having abdominal pain but she feels that it is slightly improved. She denies fevers. No nausea or vomiting. Exam GI: Inspection: obesity GI Palp: Yes Soft to palpation and Yes Tenderness to palpation present (GI) (diffusely, but mostly in LLQ) Objective Data Vital Signs Vital Signs: Vital Signs - 24 hr 12/27/22 14:00 12/27/22 16:00 12/27/22 16:00 Temperature Pulse Rate 103 H 105 H Respiratory Rate Blood Pressure Pulse Oximetry Oxygen Delivery Room Air 12/27/22 16:00 12/27/22 18:00 12/27/22 19:59 Temperature 36.1 C L 36.4 C Pulse Rate 104 H 101 H 108 H Respiratory Rate 24 H 20 Blood Pressure 104/80 105/69 Pulse Oximetry 100 99 Oxygen Delivery 12/28/22 00:00 12/27/22 20:00 12/27/22 22:00 Temperature 36.5 C Pulse Rate 103 H 107 H 105 H Respiratory Rate 20 Blood Pressure 119/71 Pulse Oximetry 99 Oxygen Delivery 12/28/22 00:00 12/28/22 02:00 12/27/22 20:00 Temperature Pulse Rate 103 H 108 H Respiratory Rate Blood Pressure Pulse Oximetry Oxygen Delivery Room Air 12/28/22 00:00 12/28/22 04:00 12/28/22 04:00 Temperature 36.6 C Pulse Rate 98 Respiratory Rate 22 H Blood Pressure 112/65 Pulse Oximetry 100 Oxygen Delivery Room Air Room Air 12/28/22 04:00 12/28/22 06:00 12/28/22 09:15 Temperature Pulse Rate 99 100 112 H Respiratory Rate Blood Pressure Pulse Oximetry Oxygen Delivery 12/28/22 08:00 12/28/22 12:00 Temperature 36.1 C L 36.2 C L Pulse Rate 92 92 Respiratory Rate 20 20 Blood Pressure 114/69 115/66 Pulse Oximetry 98 100 Oxygen Delivery Intake/Output Intake/Output: Intake & Output 12/25/22 12/26/22 12/27/22 12/28/22 23:59 23:59 23:59 23:59 Intake Total 4800 3020 6360 1860 Output Total 700 Balance 4800 2320 6360 1860 Meds/Results Medications: Active Medications Generic Name Dose Route Start Last Admin Trade Name Freq PRN Reason Stop Dose Admin Aripiprazole 20 mg 12/28/22 09:00 12/28/22 09:14 Aripiprazole 10 Mg Tablet PO 01/27/23 08:59 20 mg DAILY RAAD Administration Dextrose 12.5 gm 12/24/22 02:27 Dextrose 50% 25 Gm/50 Ml Syringe IV PUSH PRN PRN Hypoglycemia Protocol Enoxaparin Sodium 40 mg 12/26/22 15:00 12/27/22 16:02 Enoxaparin 40 Mg/0.4 Ml Syringe SUB-Q 40 mg DAILY@1500 RAAD Administration Glucagon 1 mg 12/24/22 02:27 Glucagon For Inj 1 Mg Vial IM PRN PRN Hypoglycemia Protocol Gl
[2022-12-28] MEDS: ENOXAPARIN 40 MG/0.4 ML SYRINGE SUB-Q (17:49)
[2022-12-28 18:34] LABS: Glucose Point of Care 197 mg/dl (65-105)
[2022-12-28] MEDS: INSULIN GLARGINE (*BKC) 100 UNITS/ML 10 UNITS SUB-Q (21:22)
[2022-12-28] MEDS: TOPIRAMATE 25 MG TABLET 50 MG BY MOUTH (21:24)
[2022-12-28 23:40] LABS: Glucose Point of Care 175 mg/dl (65-105)
[2022-12-28] MEDS: LORazepam INJ (*CRX) 2 MG/ML VIAL 0.5 MG IV PUSH (23:49)
[2022-12-29] VITALS (12 sets, daily range): BP systolic 105–131; BP diastolic 61–72; PULSE 94–118; RESP 18–22; TEMP 35.3–36.4; O2SAT 94–100
[2022-12-29] MEDS: HYDROmorphone HCL INJ (*CRX) 1 MG/ML SYR IV PUSH ×2 (04:30→12:46)
[2022-12-29] MEDS: metroNIDAZOLE 500 MG/ISO 100ML 500 MG/100 ML BAG 100 MG IVPB ×4 (06:15→23:38)
[2022-12-29] MEDS: SALINE LOCK FLUSH 10 ML IV PUSH ×3 (06:16→23:44)
[2022-12-29 06:20] LABS: Hematocrit 38.2 % (37.0-47.0); Hemoglobin 11.9 g/dL (12.0-15.0); Mean Corpuscular HGB Conc 31.2 g/dl (32-36); Mean Corpuscular Hemoglobin 28.6 pg (26-34); Mean Corpuscular Volume 91.8 fl (80-100); Mean Platelet Volume 9.7 fl (7.4-10.4); Platelet Count Result 362 k/mm3 (150-375); Red Blood Count 4.16 M/mm3 (4.2-5.4); Red Cell Distribution Width 14.5 % (11.5-14.5); White Blood Count 19.1 K/mm3 (4.5-10.0)
[2022-12-29 06:33] LABS: Alanine Aminotransferase 21 U/L (6-35); Albumin Level 2.7 g/dL (3.5-5.1); Alkaline Phosphatase 46 U/L (38-126); Anion Gap 2 mmol/L (8-16); Aspartate Amino Transferase 22 U/L (14-36); Bilirubin,Total 0.4 mg/dL (0.2-1.3); Blood Urea Nitrogen 2 mg/dL (7-17); Calcium 7.6 mg/dL (8.4-10.2); Carbon Dioxide 28 mmol/L (22-30); Chloride 104 mmol/L (98-107); Estimated CRCL calculation 146 ml/min; Estimated Glomerular Filt Rate > 60; Glucose 160 mg/dL (65-110); Potassium 3.8 mmol/L (3.4-5.0); Sodium 134 mmol/L (137-145)
[2022-12-29 07:38] LABS: Band Neutrophils Percent 17 % (0-6); Lymphocytes Absolute Manual 3.05 K/mm3 (1.1-4.5); Monocytes Absolute Manual 2.48 K/mm3 (0.1-0.90); Monocytes Percent Manual 13 % (3-9); Neutrophils Absolute Manual 13.56 K/mm3 (1.7-7.2); Neutrophils Percent Manual 54 % (46-73); Platelet Clumps Present; Platelet Estimate Adequate (Adequate); Schistocytes None Seen (NORMAL); Total Cells Counted 100
[2022-12-29 07:39] LABS: Atypical Lymphocytes Present
[2022-12-29] MEDS: NEOMYCIN/POLYMYXIN/BACITRACIN OINTMENT 15 GM TUBE 1 APPLIC TOPICAL ×2 (09:26→20:55)
[2022-12-29] MEDS: METOPROLOL SUCCINATE EXT REL 12.5 MG TABCR PO (09:26)
[2022-12-29] MEDS: oxyCODONE/ACETAMINOPHEN (*CRX) 10-325 MG TABLET 1 TAB PO ×3 (09:26→20:55)
[2022-12-29] MEDS: TOPIRAMATE 25 MG TABLET BY MOUTH (09:27)
[2022-12-29] MEDS: DESVENLAFAXINE SUCCINATE 50 MG TAB.ER.24H 100 MG PO (09:28)
[2022-12-29] MEDS: PANTOPRAZOLE SODIUM IV 40 MG VIAL IV PUSH ×2 (09:29→20:55)
--- NOTE | 2022-12-29 09:43 | PM.IMPN ---
Progress Note: A&P Assessment and Plan (1) Bowel perforation: Code(s): K63.1 - Perforation of intestine (nontraumatic) Status: Acute Assessment and Plan: Patient presents with abdominal pain after a laparoscopic abdominal procedure. CT A/P on 12/23 shows focal apparent wall defect in the mid sigmoid colon possibly perforation with surrounding inflammation and gas. Patient was having increasing abdominal pain so CT repeated. Repeat CT on 12/25 shows persistent widespread free intraperitoneal air without significant change. She has a small mesenteric fluid collection in the sigmoid mesentery concerning for bowel perforation. She also has dilated small bowel consistent with ileus. General surgery following. Abd pain better and still having BMs. WBC slightly better at 19K. Tolerating full liquid diet. Continue IV antibiotics as detailed below. Advance diet per GenSurg. (2) Post-operative complication: Code(s): T81.9XXA - Unspecified complication of procedure, initial encounter Status: Acute Assessment and Plan: Had exploratory laparoscopy 12/20. CT scan as above and noted possible sigmoid perforation felt related to complication from the procedure. She was started on Zosyn 12/23-. Antibiotics changed to Rocephin and Flagyl on 12/24 but changed back to Zosyn and Flagyl 12/25. Pain controlled. WBC better today and no fevers. BCx NGTD. Appreciate general surgery input. As above. (3) Type 2 diabetes mellitus: Code(s): E11.9 - Type 2 diabetes mellitus without complications Status: Acute Assessment and Plan: A1c 7.6. The patient's blood glucose was reviewed on 12/29 Glucose better with glucose 160 this morning. Continue AccuCheks covering with sliding scale. Hypoglycemia protocol available as needed. Continue to monitor. Continue Lantus (4) KAYLEE (obstructive sleep apnea): Code(s): G47.33 - Obstructive sleep apnea (adult) (pediatric) Status: Acute Assessment and Plan: Patient has KAYLEE on BiPAP at home. Last titration was in 2019 current BiPAP settings are IPAP 19/EPAP 15, no oxygen bleed in Pulmonology consulted BiPAP stopped for fear that this may worsen the ileus. Using supplemental O2 at night. Pulmonary recommended holding BiPAP for a week after going home. (5) Hypokalemia: Code(s): E87.6 - Hypokalemia Status: Acute Assessment and Plan: Potassium stable. Follow. (6) Hyponatremia: Code(s): E87.1 - Hypo-osmolality and hyponatremia Status: Acute Assessment and Plan: Sodium dropped to 129. Sodium stable at 134 Follow (7) Depression: Qualifiers: Depression Type: major depressive disorder Major depression recurrence: recurrent Active/Remission status: currently active Major depression episode severity: mild Qualified Code(s): F33.0 - Major depressive disorder, recurrent, mild Code(s): F32.9 - Major depressive disorder, single episode, unspecified Status: Acute Assessment and Plan: Patient is on Pristiq and Abilify at home Continue Abilify and Pristiq Plan DVT prophylaxis with SCDs and Lovenox GI prophylaxis with PPI Code status full code Subjective Date/time seen: 12/29/22 09:43 Interval history: 37yo female with KAYLEE, DM and HTN who underwent laparoscopic lysis of adhesions on 12/20 who returned for abdominal pain and found to have possible bowel perforation. Patient having normal bowel movements. She does complain of a headache this morning. No nausea or vomiting. She is tolerating oral intake without increasing abdominal pain or nausea. Overall, her abdominal pain is improved. She denies chest pain or shortness of breath. She is walking to the bathroom. Exam Narrative: AF 105/65 104 20 94% ra Gen - NARD sitting up in the chair Chest - CTA bilaterally, nml RR CV - RRR S1/S2; Tele showing no significant dysrhythmias but occasional sinus
[2022-12-29] MEDS: INSULIN ASPART (*BKC) 100 UNITS/ML SUB-Q (12:06)
[2022-12-29 12:08] LABS: Glucose Point of Care 202 mg/dl (65-105)
--- NOTE | 2022-12-29 12:23 | PC.NURSE ---
This patient, Angela Duncan, was transferred to [[id number] ] on 12/29/22 at 1223. Personal belongings sent with patient. Report given to [BRIGITTE Tolbert ]. Appropriate documentation sent with patient.
--- NOTE | 2022-12-29 14:13 | PM.PNGS ---
Progress Note: A&P Assessment and Plan (1) Bowel perforation: Code(s): K63.1 - Perforation of intestine (nontraumatic) Status: Acute Assessment and Plan: WBC minimall improved, still 19K. No other concerning signs for worsening infection. Advance to low fiber diabetic diet for dinner Continue Zosyn and Flagyl Consider repeat CT if symptoms worsen or WBC goes up again. (2) Tobacco use: Code(s): Z72.0 - Tobacco use Status: Acute (3) Morbid obesity with BMI of 50.0-59.9, adult: Code(s): E66.01 - Morbid (severe) obesity due to excess calories; Z68.43 - Body mass index [BMI] 50.0-59.9, adult Status: Acute (4) S/P laparoscopic procedure: Code(s): Z98.890 - Other specified postprocedural states Status: Acute Subjective Subjective Date/Time Seen: 12/29/22 14:13 Interval history: Tolerating full liquids. Still requiring Percocet 10mg and Dilaudid for breakthru pain. Bowels moving. No fevers. Exam GI: Inspection: non-distended, Pannus present and obesity GI Palp: Yes Soft to palpation and Yes Tenderness to palpation present (GI) (diffusely but mostly LLQ) Objective Data Vital Signs Vital Signs: Vital Signs - 24 hr 12/28/22 16:00 12/28/22 16:00 12/28/22 16:00 Temperature 36.2 C L Pulse Rate 95 95 Respiratory Rate 24 H Blood Pressure 98/52 L Pulse Oximetry 99 Oxygen Delivery Room Air Oxygen Flow Rate 12/28/22 18:00 12/28/22 20:00 12/28/22 20:00 Temperature 36.4 C Pulse Rate 98 102 H 105 H Respiratory Rate 22 H Blood Pressure 116/58 L Pulse Oximetry 100 Oxygen Delivery Oxygen Flow Rate 12/28/22 20:00 12/28/22 22:00 12/29/22 00:00 Temperature 36.3 C L Pulse Rate 104 H 118 H Respiratory Rate 22 H Blood Pressure 131/68 Pulse Oximetry 100 Oxygen Delivery Room Air Oxygen Flow Rate 12/29/22 00:00 12/29/22 00:00 12/29/22 00:44 Temperature Pulse Rate 110 H Respiratory Rate Blood Pressure Pulse Oximetry 99 94 Oxygen Delivery Nasal Cannula Room Air Oxygen Flow Rate 2 12/29/22 02:00 12/29/22 04:00 12/29/22 04:00 Temperature Pulse Rate 98 94 Respiratory Rate Blood Pressure Pulse Oximetry 99 Oxygen Delivery Nasal Cannula Oxygen Flow Rate 2 12/29/22 04:00 12/29/22 06:00 12/29/22 08:10 Temperature 36.4 C L 35.3 C L Pulse Rate 96 97 107 H Respiratory Rate 20 20 Blood Pressure 105/61 105/65 Pulse Oximetry 98 94 Oxygen Delivery Oxygen Flow Rate 12/29/22 09:05 12/29/22 09:26 12/29/22 08:00 Temperature Pulse Rate 104 H 94 Respiratory Rate Blood Pressure Pulse Oximetry 94 Oxygen Delivery Room Air Oxygen Flow Rate 12/29/22 10:00 Temperature Pulse Rate 98 Respiratory Rate Blood Pressure Pulse Oximetry Oxygen Delivery Oxygen Flow Rate Intake/Output Intake/Output: Intake & Output 12/26/22 12/27/22 12/28/22 12/29/22 23:59 23:59 23:59 23:59 Intake Total 3020 6360 3185 1070 Output Total 700 1 Balance 2320 6360 3185 1069 Meds/Results Medications: Active Medications Generic Name Dose Route Start Last Admin Trade Name Freq PRN Reason Stop Dose Admin Acetaminophen 650 mg 12/29/22 09:51 Acetaminophen 325 Mg Tablet PO Q6H PRN Mild Pain (1-3) or Fever Aripiprazole 20 mg 12/29/22 21:00 Aripiprazole 10 Mg Tablet PO 01/27/23 08:59 [facility]HS [facility] Desvenlafaxine Succinate 100 mg 12/29/22 09:00 12/29/22 09:28 Desvenlafaxine Succinate 50 Mg Tab.Er.24h PO 01/28/23 08:59 100 mg DAILY RAAD Administration Dextrose 12.5 gm 12/24/22 02:27 Dextrose 50% 25 Gm/50 Ml Syringe IV PUSH PRN PRN Hypoglycemia Protocol Enoxaparin Sodium 40 mg 12/26/22 15:00 12/28/22 17:49 Enoxaparin 40 Mg/0.4 Ml Syringe SUB-Q 40 mg DAILY@1500 RAAD Administration Glucagon 1 mg 12/24/22 02:27 Glucagon For Inj 1 Mg Vial IM PRN PRN Hypoglycemia Protocol
[2022-12-29] MEDS: ENOXAPARIN 40 MG/0.4 ML SYRINGE SUB-Q (16:55)
[2022-12-29] MEDS: INSULIN GLARGINE (*BKC) 100 UNITS/ML 10 UNITS SUB-Q (20:52)
[2022-12-29] MEDS: ARIPiprazole 10 MG TABLET 20 MG PO (20:54)
[2022-12-29] MEDS: TOPIRAMATE 25 MG TABLET 50 MG BY MOUTH (20:55)
[2022-12-29 21:35] LABS: Glucose Point of Care 235 mg/dl (65-105)
--- NOTE | 2022-12-29 22:46 | PM.GYNPNOP ---
INVENTORY MANAGEMENT SPECIALIST - A/P Assessment and plan (1) Ileus, postoperative: Code(s): K91.89 - Other postprocedural complications and disorders of digestive system; K56.7 - Ileus, unspecified Status: Acute Assessment and Plan: Advancing diet per general surgery's recommendation. Continue to watch closely. Time Spent With Patient Time with patient: less than 15 minutes INVENTORY MANAGEMENT SPECIALIST- PN:Subj Post-Op Subjective Date/time seen: 12/29/22 22:46 (late entry) Still has sharp pains in LLQ, but is able to ambulate, pass bowel movements. Exam Narrative: AVSS I/O OK INVENTORY MANAGEMENT SPECIALIST - PN: Obj Data Vital Signs Vital Signs: Vital Signs - 24 hr 12/29/22 00:00 12/29/22 00:00 12/29/22 00:00 Temperature 36.3 C L Pulse Rate 118 H 110 H Respiratory Rate 22 H Blood Pressure 131/68 Pulse Oximetry 100 99 Oxygen Delivery Nasal Cannula Oxygen Flow Rate 2 12/29/22 00:44 12/29/22 02:00 12/29/22 04:00 Temperature Pulse Rate 98 94 Respiratory Rate Blood Pressure Pulse Oximetry 94 Oxygen Delivery Room Air Oxygen Flow Rate 12/29/22 04:00 12/29/22 04:00 12/29/22 06:00 Temperature 36.4 C L Pulse Rate 96 97 Respiratory Rate 20 Blood Pressure 105/61 Pulse Oximetry 99 98 Oxygen Delivery Nasal Cannula Oxygen Flow Rate 2 12/29/22 08:10 12/29/22 09:05 12/29/22 09:26 Temperature 35.3 C L Pulse Rate 107 H 104 H Respiratory Rate 20 Blood Pressure 105/65 Pulse Oximetry 94 94 Oxygen Delivery Room Air Oxygen Flow Rate 12/29/22 08:00 12/29/22 10:00 12/29/22 16:00 Temperature 36.0 C L Pulse Rate 94 98 100 Respiratory Rate 18 Blood Pressure 122/69 Pulse Oximetry 96 Oxygen Delivery Oxygen Flow Rate 12/29/22 22:40 Temperature 36.2 C L Pulse Rate 101 H Respiratory Rate 18 Blood Pressure 120/72 Pulse Oximetry 97 Oxygen Delivery Oxygen Flow Rate Intake/Output Intake/Output: Intake & Output 12/26/22 12/27/22 12/28/22 12/29/22 23:59 23:59 23:59 23:59 Intake Total 3020 5960 3185 1920 Output Total 700 1 Balance 2320 6360 3185 1919 Meds/Results Medications: Active Medications Generic Name Dose Route Start Last Admin Trade Name Freq PRN Reason Stop Dose Admin Acetaminophen 650 mg 12/29/22 09:51 Acetaminophen 325 Mg Tablet PO Q6H PRN Mild Pain (1-3) or Fever Aripiprazole 20 mg 12/29/22 21:00 12/29/22 20:54 Aripiprazole 10 Mg Tablet PO 01/27/23 08:59 20 mg QHS RAAD Administration Desvenlafaxine Succinate 100 mg 12/29/22 09:00 12/29/22 09:28 Desvenlafaxine Succinate 50 Mg Tab.Er.24h PO 01/28/23 08:59 100 mg DAILY RAAD Administration Dextrose 12.5 gm 12/24/22 02:27 Dextrose 50% 25 Gm/50 Ml Syringe IV PUSH PRN PRN Hypoglycemia Protocol Enoxaparin Sodium 40 mg 12/26/22 15:00 12/29/22 16:55 Enoxaparin 40 Mg/0.4 Ml Syringe SUB-Q 40 mg DAILY@1500 RAAD Administration Glucagon 1 mg 12/24/22 02:27 Glucagon For Inj 1 Mg Vial IM PRN PRN Hypoglycemia Protocol Glucose 15 gm 12/24/22 02:27 Glucose Oral Gel 15 Gm Of Glucse In 37.5 Gm Tube PO PRN PRN Hypoglycemia Protocol Hydralazine HCl 10 mg 12/24/22 02:46 Hydralazine Hcl 20 Mg/Ml Vial IV PUSH Q8H PRN Blood Pressure - High Hydromorphone HCl 1 mg 12/25/22 10:21 12/29/22 12:46 Hydromorphone Hcl Inj (*Crx) 1 Mg/Ml Syr IV PUSH 1 mg Q2H PRN Administration Breakthrough Pain Dextrose 1,000 mls @ 100 mls/hr 12/24/22 02:27 Dextrose 5% 1,000 Ml IVPB PRN PRN Hypoglycemia Protocol Metronidazole 500 mg in 100 mls @ 100 mls/hr 12/24/22 10:00 12/29/22 18:40 Flagyl 500 Mg/Iso Soln 100 Ml IVPB Infused Q6HR RAAD Infusion Piperacillin/Tazobactam/Dextrose 3.375 gm in 50 mls @ 100 mls/hr 12/25/22 12:00 12/29/22 19:00 Zosyn 3.375 Gm/D5w 50ml Pm IVPB Infused Q6HR RAAD Infusion Insulin Aspart 2 - 5 units 12/30/22 08:00 Insulin Aspart (*B
[2022-12-30] MEDS: oxyCODONE/ACETAMINOPHEN (*CRX) 10-325 MG TABLET 1 TAB PO ×5 (04:14→22:51)
[2022-12-30 05:12] VITALS: BP 114/77; PULSE 93; RESP 18; TEMP 36.8; O2SAT 99
[2022-12-30] MEDS: metroNIDAZOLE 500 MG/ISO 100ML 500 MG/100 ML BAG 100 MG IVPB ×3 (05:51→17:28)
[2022-12-30] MEDS: SALINE LOCK FLUSH 10 ML IV PUSH ×3 (05:52→21:11)
[2022-12-30 06:04] LABS: Hematocrit 39.4 % (37.0-47.0); Hemoglobin 12.5 g/dL (12.0-15.0); Mean Corpuscular HGB Conc 31.7 g/dl (32-36); Mean Corpuscular Hemoglobin 28.8 pg (26-34); Mean Corpuscular Volume 90.8 fl (80-100); Mean Platelet Volume 9.5 fl (7.4-10.4); Platelet Count Result 378 k/mm3 (150-375); Red Blood Count 4.34 M/mm3 (4.2-5.4); Red Cell Distribution Width 14.4 % (11.5-14.5); White Blood Count 16.4 K/mm3 (4.5-10.0)
[2022-12-30 06:15] LABS: Alanine Aminotransferase 24 U/L (6-35); Albumin Level 2.9 g/dL (3.5-5.1); Alkaline Phosphatase 75 U/L (38-126); Anion Gap 3 mmol/L (8-16); Aspartate Amino Transferase 26 U/L (14-36); Bilirubin,Total 0.4 mg/dL (0.2-1.3); Blood Urea Nitrogen 5 mg/dL (7-17); Calcium 7.7 mg/dL (8.4-10.2); Carbon Dioxide 27 mmol/L (22-30); Chloride 106 mmol/L (98-107); Estimated CRCL calculation 146 ml/min; Estimated Glomerular Filt Rate > 60; Glucose 172 mg/dL (65-110); Sodium 136 mmol/L (137-145)
[2022-12-30 06:39] LABS: Anisocytosis 2+ (NORMAL); Band Neutrophils Percent 10 % (0-6); Eosinophils Absolute Manual 0.32 K/mm3 (0.02-0.5); Eosinophils Percent Manual 2 % (0-4); Hypochromasia 1+ (NORMAL); Monocytes Absolute Manual 1.14 K/mm3 (0.1-0.90); Monocytes Percent Manual 7 % (3-9); Neutrophils Absolute Manual 10.82 K/mm3 (1.7-7.2); Neutrophils Percent Manual 56 % (46-73); Platelet Estimate Adequate (Adequate); Schistocytes None Seen (NORMAL); Total Cells Counted 100
[2022-12-30 07:55] LABS: Glucose Point of Care 153 mg/dl (65-105)
[2022-12-30 08:00] VITALS: BP 111/75; PULSE 88; RESP 18; TEMP 35.9; O2SAT 96
[2022-12-30] MEDS: NEOMYCIN/POLYMYXIN/BACITRACIN OINTMENT 15 GM TUBE 1 APPLIC TOPICAL ×2 (08:08→21:11)
[2022-12-30 08:09] VITALS: PULSE 96
[2022-12-30] MEDS: DESVENLAFAXINE SUCCINATE 50 MG TAB.ER.24H 100 MG PO (08:09)
[2022-12-30] MEDS: METOPROLOL SUCCINATE EXT REL 12.5 MG TABCR PO (08:09)
[2022-12-30] MEDS: TOPIRAMATE 25 MG TABLET BY MOUTH (08:10)
[2022-12-30] MEDS: PANTOPRAZOLE SODIUM IV 40 MG VIAL IV PUSH ×2 (08:10→21:10)
[2022-12-30 08:52] VITALS: PULSE 91; RESP 18; O2SAT 96
[2022-12-30 11:45] LABS: Glucose Point of Care 181 mg/dl (65-105)
--- NOTE | 2022-12-30 11:45 | PM.PNGS ---
Progress Note: A&P Assessment and Plan (1) Bowel perforation: Code(s): K63.1 - Perforation of intestine (nontraumatic) Status: Acute Assessment and Plan: WBC trending down again today to 16k. Bowels are moving and she is tolerating a soft diet. Continue IV Zosyn and Flagyl Repeat labs again tomorrow (2) Tobacco use: Code(s): Z72.0 - Tobacco use Status: Acute (3) Morbid obesity with BMI of 50.0-59.9, adult: Code(s): E66.01 - Morbid (severe) obesity due to excess calories; Z68.43 - Body mass index [BMI] 50.0-59.9, adult Status: Acute (4) S/P laparoscopic procedure: Code(s): Z98.890 - Other specified postprocedural states Status: Acute Plan I have discussed the patient's case and plan of care with Dr. Tolliver. Subjective Subjective Date/Time Seen: 12/30/22 11:45 Patient reports: no new complaints, feels better, pain is less, tolerating a regular diet (low fiber diet), flatus, bowel movement (this am) and afebrile Interval history: Chart reviewed since last seen. Patient reports continued improvement of her abdominal pain over the weekend. She has not required IV Dilaudid since yesterday around noon and currently her abdominal pain is controlled with oxycodone. She reports some left upper quadrant muscle soreness that she attributes to positioning in bed. The left lower quadrant and lower abdominal pain continues to improve. She denies any nausea or vomiting. Bloating has improved over the past few days. She had a normal formed bowel movement this morning. She is tolerating a low-fiber diet. No other complaints at this time. Review of Systems Review of Systems: All systems reviewed & are unremarkable except as noted in HPI and below Exam Const: General: comfortable and no acute distress Nutritional Appearance: obese morbidly obese Orientation/consciousness: patient oriented x3 GI: Inspection: non-distended, incision (incisions dry and intact), Pannus present, obesity and no visible herniation GI Palp: Yes Soft to palpation, Yes Tenderness to palpation present (GI) (diffusely tender across her lower abdomen and LUQ, improved), No Guarding due to palpation present (GI) and No Rebound tenderness present Auscultation: normal bowel sounds Extrem: General: no edema Psych: Mental Status: mental status grossly normal Insight: Good insight present (Psych) Objective Data Vital Signs Vital Signs: Vital Signs - 24 hr 12/29/22 16:00 12/29/22 22:40 12/30/22 05:12 Temperature 96.8 F L 97.2 F L 98.3 F Pulse Rate 100 101 H 93 Respiratory Rate 18 18 18 Blood Pressure 122/69 120/72 114/77 Pulse Oximetry 96 97 99 Oxygen Delivery Fraction of Inspired Oxygen 12/30/22 08:09 12/30/22 08:00 12/30/22 08:52 Temperature 96.7 F L Pulse Rate 96 88 91 Respiratory Rate 18 18 Blood Pressure 111/75 Pulse Oximetry 96 96 Oxygen Delivery Room Air Fraction of Inspired Oxygen 21 Intake/Output Intake/Output: Intake & Output 12/27/22 12/28/22 12/29/22 12/30/22 23:59 23:59 23:59 23:59 Intake Total 6360 3185 1920 1960 Output Total 1 Balance 6360 2305 191 1959 Meds/Results Medications: Active Medications Generic Name Dose Route Start Last Admin Trade Name Freq PRN Reason Stop Dose Admin Acetaminophen 650 mg 12/29/22 09:51 Acetaminophen 325 Mg Tablet PO Q6H PRN Mild Pain (1-3) or Fever Aripiprazole 20 mg 12/29/22 21:00 12/29/22 20:54 Aripiprazole 10 Mg Tablet PO 01/27/23 08:59 20 mg QHS RAAD Administration Desvenlafaxine Succinate 100 mg 12/29/22 09:00 12/30/22 08:09 Desvenlafaxine Succinate 50 Mg Tab.Er.24h PO 01/28/23 08:59 100 mg DAILY RAAD Administration Dextrose 12.5 gm 12/24/22 02:27 Dextrose 50% 25 Gm/50 Ml Syringe IV PUSH PRN PRN Hypoglycemia Protocol Enoxaparin Sodium 40 mg 12/26/22 15:00 12/29/22 16:55 Enoxaparin 40 Mg/0.4 Ml Syringe SUB-Q 40 mg DAILY@1
--- NOTE | 2022-12-30 12:53 | PM.GYNPNOP ---
BIG DATA PLATFORM ARCHITECT - A/P Assessment and plan (1) Ileus, postoperative: Code(s): K91.89 - Other postprocedural complications and disorders of digestive system; K56.7 - Ileus, unspecified Status: Acute Assessment and Plan: Continue observation, gradual advancement of diet per recommendations of general surgery service. Time Spent With Patient Time with patient: less than 15 minutes BIG DATA PLATFORM ARCHITECT- PN:Subj Post-Op Subjective Date/time seen: 12/30/22 12:53 Sitting in chair, has just been served turkey, mashed potatoes, gravy and green beans. Feels intermittent pain, but says she has been able to space out her pain meds more today. Ambulating and having bowel movements. Interval history: Pain OK. Tolerating diet. Voiding. Would like to go home. Exam Narrative: AVSS I/O OK BIG DATA PLATFORM ARCHITECT - PN: Obj Data Vital Signs Vital Signs: Vital Signs - 24 hr 12/29/22 16:00 12/29/22 22:40 12/30/22 05:12 Temperature 36.0 C L 36.2 C L 36.8 C Pulse Rate 100 101 H 93 Respiratory Rate 18 18 18 Blood Pressure 122/69 120/72 114/77 Pulse Oximetry 96 97 99 Oxygen Delivery Fraction of Inspired Oxygen 12/30/22 08:09 12/30/22 08:00 12/30/22 08:52 Temperature 35.9 C L Pulse Rate 96 88 91 Respiratory Rate 18 18 Blood Pressure 111/75 Pulse Oximetry 96 96 Oxygen Delivery Room Air Fraction of Inspired Oxygen 21 Intake/Output Intake/Output: Intake & Output 12/27/22 12/28/22 12/29/22 12/30/22 23:59 23:59 23:59 23:59 Intake Total 6360 3185 1920 2182 Output Total 1 Balance 6360 3185 1919 2182 Meds/Results Medications: Active Medications Generic Name Dose Route Start Last Admin Trade Name Freq PRN Reason Stop Dose Admin Acetaminophen 650 mg 12/29/22 09:51 Acetaminophen 325 Mg Tablet PO Q6H PRN Mild Pain (1-3) or Fever Aripiprazole 20 mg 12/29/22 21:00 12/29/22 20:54 Aripiprazole 10 Mg Tablet PO 01/27/23 08:59 20 mg QHS RAAD Administration Desvenlafaxine Succinate 100 mg 12/29/22 09:00 12/30/22 08:09 Desvenlafaxine Succinate 50 Mg Tab.Er.24h PO 01/28/23 08:59 100 mg DAILY RAAD Administration Dextrose 12.5 gm 12/24/22 02:27 Dextrose 50% 25 Gm/50 Ml Syringe IV PUSH PRN PRN Hypoglycemia Protocol Enoxaparin Sodium 40 mg 12/26/22 15:00 12/29/22 16:55 Enoxaparin 40 Mg/0.4 Ml Syringe SUB-Q 40 mg DAILY@1500 RAAD Administration Glucagon 1 mg 12/24/22 02:27 Glucagon For Inj 1 Mg Vial IM PRN PRN Hypoglycemia Protocol Glucose 15 gm 12/24/22 02:27 Glucose Oral Gel 15 Gm Of Glucse In 37.5 Gm Tube PO PRN PRN Hypoglycemia Protocol Hydralazine HCl 10 mg 12/24/22 02:46 Hydralazine Hcl 20 Mg/Ml Vial IV PUSH Q8H PRN Blood Pressure - High Hydromorphone HCl 1 mg 12/25/22 10:21 12/29/22 12:46 Hydromorphone Hcl Inj (*Crx) 1 Mg/Ml Syr IV PUSH 1 mg Q2H PRN Administration Breakthrough Pain Dextrose 1,000 mls @ 100 mls/hr 12/24/22 02:27 Dextrose 5% 1,000 Ml IVPB PRN PRN Hypoglycemia Protocol Metronidazole 500 mg in 100 mls @ 100 mls/hr 12/24/22 10:00 12/30/22 12:22 Flagyl 500 Mg/Iso Soln 100 Ml IVPB 100 mls/hr Q6HR RAAD Administration Piperacillin/Tazobactam/Dextrose 3.375 gm in 50 mls @ 100 mls/hr 12/25/22 12:00 12/30/22 12:22 Zosyn 3.375 Gm/D5w 50ml Pm IVPB 100 mls/hr Q6HR RAAD Administration Insulin Aspart 2 - 5 units 12/30/22 08:00 12/30/22 08:10 Insulin Aspart (*Bkc) 100 Units/Ml SUB-Q Not Given TIDWM RAAD Protocol Insulin Glargine 10 units 12/28/22 21:00 12/29/22 20:52 Insulin Glargine (*Bkc) 100 Units/Ml SUB-Q 10 units HS RAAD Administration Lorazepam 0.5 mg 12/24/22 02:46 12/28/22 23:49 Lorazepam Inj (*Crx) 2 Mg/Ml Vial IV PUSH 0.5 mg Q6H PRN Administration Anxiety Metoprolol Succinate 12.5 mg 12/28/22 09:00 12/30/22 08:09 Metoprolol Succinate Ext Rel 12.5 Mg Tabcr PO 12.5 mg DAILY RAAD
--- NOTE | 2022-12-30 14:39 | PM.IMPN ---
Progress Note: A&P Assessment and Plan (1) Bowel perforation: Code(s): K63.1 - Perforation of intestine (nontraumatic) Status: Acute Assessment and Plan: Patient presents with abdominal pain after a laparoscopic abdominal procedure. CT A/P on 12/23 shows focal apparent wall defect in the mid sigmoid colon possibly perforation with surrounding inflammation and gas. Patient was having increasing abdominal pain so CT repeated. Repeat CT on 12/25 shows persistent widespread free intraperitoneal air without significant change. She has a small mesenteric fluid collection in the sigmoid mesentery concerning for bowel perforation. She also has dilated small bowel consistent with ileus. General surgery following. Abd pain better and still having BMs. WBC better at 16K. Tolerating soft diet. Continue IV antibiotics as detailed below. Advance oral medciations. Lasix x 1 (2) Post-operative complication: Code(s): T81.9XXA - Unspecified complication of procedure, initial encounter Status: Acute Assessment and Plan: Had exploratory laparoscopy 12/20. CT scan as above and noted possible sigmoid perforation felt related to complication from the procedure. She was started on Zosyn 12/23-. Antibiotics changed to Rocephin and Flagyl on 12/24 but changed back to Zosyn and Flagyl 12/25. Pain controlled. WBC better today and no fevers but still slightly elevated band count. BCx negative Appreciate general surgery input. As above. (3) Type 2 diabetes mellitus: Code(s): E11.9 - Type 2 diabetes mellitus without complications Status: Acute Assessment and Plan: A1c 7.6. The patient's blood glucose was reviewed on 12/30 Glucose reasonably well controlled Continue AccuCheks covering with sliding scale. Hypoglycemia protocol available as needed. Continue to monitor. Continue Lantus but will need to advance if she tolerates current diet. Add diab diet (4) KAYLEE (obstructive sleep apnea): Code(s): G47.33 - Obstructive sleep apnea (adult) (pediatric) Status: Acute Assessment and Plan: Patient has KAYLEE on BiPAP at home. Last titration was in 2019 current BiPAP settings are IPAP 19/EPAP 15, no oxygen bleed in Pulmonology consulted BiPAP stopped for fear that this may worsen the ileus. Using supplemental O2 at night. Pulmonary recommended holding BiPAP for a week after going home. (5) Hypokalemia: Code(s): E87.6 - Hypokalemia Status: Acute Assessment and Plan: Potassium stable. Follow. (6) Hyponatremia: Code(s): E87.1 - Hypo-osmolality and hyponatremia Status: Acute Assessment and Plan: Sodium dropped to 129. Sodium stable at 136 Follow (7) Depression: Qualifiers: Depression Type: major depressive disorder Major depression recurrence: recurrent Active/Remission status: currently active Major depression episode severity: mild Qualified Code(s): F33.0 - Major depressive disorder, recurrent, mild Code(s): F32.9 - Major depressive disorder, single episode, unspecified Status: Acute Assessment and Plan: Patient is on Pristiq and Abilify at home whcih now have been resumed. Follow Plan DVT prophylaxis with SCDs and Lovenox GI prophylaxis with PPI Code status full code Subjective Date/time seen: 12/30/22 14:39 Interval history: 37yo female with KAYLEE, DM and HTN who underwent laparoscopic lysis of adhesions on 12/20 who returned for abdominal pain and found to have possible bowel perforation. Still having abdominal spasms at times but overall abdominal pain is improved. No nausea or vomiting. Diet has been advanced and she is tolerating the advanced diet well. Still having bowel movements. Exam Narrative: AF 111/75 91 18 96% ra Gen - NARD Chest - CTA bilaterally, nml RR CV - RRR S1/S2 Abd - soft, obese, minimal diffuse tenderness Ext - Trace pedal edema. Negative Homans Psych
[2022-12-30 16:00] VITALS: BP 110/72; PULSE 92; RESP 18; TEMP 36.1; O2SAT 98
[2022-12-30 16:43] LABS: Glucose Point of Care 189 mg/dl (65-105)
[2022-12-30] MEDS: FUROSEMIDE INJ 40 MG/4 ML VIAL 20 MG IV PUSH (17:28)
[2022-12-30] MEDS: ENOXAPARIN 40 MG/0.4 ML SYRINGE SUB-Q (17:29)
[2022-12-30 19:47] VITALS: BP 98/60; PULSE 87; RESP 18; TEMP 36.1; O2SAT 99
--- NOTE | 2022-12-30 20:03 | PM.PNPUL ---
Progress Note: A&P Assessment and Plan (1) KAYLEE (obstructive sleep apnea): Code(s): G47.33 - Obstructive sleep apnea (adult) (pediatric) Status: Acute Assessment and Plan: This patient has obstructive sleep apnea, last sleep study August 10, 2020 showed an optimal pressure of BiPAP . She is sleeping well with O2 at 2 L/min instead of BiPAP. Continue to use O2 with sleep; we can see her after discharge, see if she needs adjustment in her PAP therapy. I told her not to use PAP here in the hospital. Subjective Date/time seen: 12/30/22 20:03 Interval history: Hospital follow up : 37 year-old woman is seen in follow up for hypoxemia, severe KAYLEE on BiPAP ; she developed a post op ileus with hypoxemia, treated with IV antibiotics. ? She is using O2 at night instead of BiPAP, feels better, waking without a headache. On on room air now, saturation is 94-100%. She started LAsix for LE swelling. 12/20 - laparoscopic extensive lysis of adhesions/hysteroscopy/ polypectomy/dilatation curettage 12/23 - nausea, vomiting and difficulty taking in a deep breath, high wbc, poor oral intake, post op ileus. 12/25? CT with widespread intraperitoneal gas, fluid collection involving colonic mesentery LLL DATA *?12/25/22 CT abdomen?-??moderate atelectasis at the visualized lung bases; No pathologically enlarged abdominal or pelvic lymph nodes are identified. Again seen is widespread free intraperitoneal gas without significant change. There is a fluid collection involving the colonic mesentery in the left lower quadrant which has increased in size. There is persistent mild dilatation of multiple small bowel loops without focal transition point. There is mild lumbar spondylosis. IMPRESSION: 1. Persistent widespread free intraperitoneal gas without significant change. Small mesenteric fluid collection of the sigmoid mesentery in the left lower quadrant slightly increased in size. Findings remain suggestive of bowel perforation. 2. Dilated loops of small bowel without focal transition point, consistent with ileus. *??12/23/2022 CT abdomen:?Focal apparent wall defect in the mid sigmoid colon, possibly representing a sigmoid perforation, with surrounding mesenteric inflammation and gas, moderate generalized pneumoperitoneum, and small bowel ileus. Review of Systems Review of Systems: All systems reviewed & are unremarkable except as noted in HPI and below Exam Narrative: GEN: Alert, oriented, not in distress. Sitting up in bed. HEENT: pupils are equal, EOMI, symmetrical face NECK: Trachea is midline CHEST: Equal air entry, symmetric excursion, improved air movement in bases, clear breath sounds CV: Regular S1S2 no m/g/r Extremities : no clubbing or cyanosis, 1+ edema PSYCH: normal thought and speech Objective Data Vital Signs Vital Signs: Vital Signs - 24 hr 12/29/22 22:40 12/30/22 05:12 12/30/22 08:09 Temperature 36.2 C L 36.8 C Pulse Rate 101 H 93 96 Respiratory Rate 18 18 Blood Pressure 120/72 114/77 Pulse Oximetry 97 99 Oxygen Delivery Fraction of Inspired Oxygen 12/30/22 08:00 12/30/22 08:52 12/30/22 16:00 Temperature 35.9 C L 36.1 C L Pulse Rate 88 91 92 Respiratory Rate 18 18 18 Blood Pressure 111/75 110/72 Pulse Oximetry 96 96 98 Oxygen Delivery Room Air Fraction of Inspired Oxygen 21 12/30/22 19:47 Temperature 36.1 C L Pulse Rate 87 Respiratory Rate 18 Blood Pressure 98/60 L Pulse Oximetry 99 Oxygen Delivery Fraction of Inspired Oxygen Intake/Output Intake/Output: Intake & Output 12/27/22 12/28/22 12/29/22 12/30/22 23:59 23:59 23:59 23:59 Intake Total 6360 3185 1920 3622 Output Total 1 1400 Balance 6360 3185 1919 2222 Meds/Results Medications: Active Medications Generic Name Dose Route Start Last Admin Trade Name Freq PRN Reason Stop Dose Admin Acetaminophen 650 mg 12/29/22 09:51 Acet
[2022-12-30] MEDS: TOPIRAMATE 25 MG TABLET 50 MG BY MOUTH (21:10)
[2022-12-30] MEDS: ARIPiprazole 10 MG TABLET 20 MG PO (21:11)
[2022-12-30] MEDS: INSULIN GLARGINE (*BKC) 100 UNITS/ML 10 UNITS SUB-Q (21:17)
[2022-12-30 22:57] LABS: Glucose Point of Care 208 mg/dl (65-105)
[2022-12-31] MEDS: metroNIDAZOLE 500 MG/ISO 100ML 500 MG/100 ML BAG 100 MG IVPB ×5 (00:45→23:26)
[2022-12-31 03:58] LABS: Basophils Absolute Auto 0.1 K/mm3 (0.0-0.1); Basophils Percent Auto 0.7 % (0.2-1.2); Eosinophils Absolute Auto 0.4 K/mm3 (0-0.3); Eosinophils Percent Auto 2.4 % (0-4.4); Hematocrit 38.3 % (37.0-47.0); Hemoglobin 11.9 g/dL (12.0-15.0); Immature Granulocyte Absolute 1.24 K/mm3 (0.00-0.031); Immature Granulocyte Percent A 8.4 % (0-0.5); Lymphocytes Absolute Auto 2.89 K/mm3 (0.9-3.2); Lymphocytes Percent Auto 19.6 % (18.3-44.2); Mean Corpuscular HGB Conc 31.1 g/dl (32-36); Mean Corpuscular Hemoglobin 28.6 pg (26-34); Mean Corpuscular Volume 92.1 fl (80-100); Mean Platelet Volume 9.6 fl (7.4-10.4); Monocytes Absolute Auto 1.4 K/mm3 (0.1-0.6); Monocytes Percent Auto 9.6 % (2.6-8.5); Neutrophils Absolute Auto 8.7 K/mm3 (1.3-6.7); Neutrophils Percent Auto 59.3 % (45.5-73.1); Platelet Count Result 374 k/mm3 (150-375); Red Blood Count 4.16 M/mm3 (4.2-5.4); Red Cell Distribution Width 14.6 % (11.5-14.5); White Blood Count 14.7 K/mm3 (4.5-10.0)
[2022-12-31] MEDS: oxyCODONE/ACETAMINOPHEN (*CRX) 10-325 MG TABLET 1 TAB PO ×4 (04:06→18:04)
[2022-12-31 04:22] LABS: Anion Gap 1 mmol/L (8-16); Blood Urea Nitrogen 6 mg/dL (7-17); Calcium 7.3 mg/dL (8.4-10.2); Carbon Dioxide 27 mmol/L (22-30); Chloride 108 mmol/L (98-107); Estimated CRCL calculation 168 ml/min; Estimated Glomerular Filt Rate > 60; Glucose 178 mg/dL (65-110); Potassium 3.8 mmol/L (3.4-5.0); Sodium 136 mmol/L (137-145)
[2022-12-31 04:37] VITALS: BP 118/68; PULSE 85; RESP 18; TEMP 36.2; O2SAT 100
[2022-12-31] MEDS: SALINE LOCK FLUSH 10 ML IV PUSH ×3 (05:18→21:00)
--- NOTE | 2022-12-31 07:46 | PM.GYNPNOP ---
SHODDY MILL WORKER - A/P Time Spent With Patient Time: Total time spent is greater than 50% in coordination of care (as documented) at patient's floor/unit and/or counseling patient: SHODDY MILL WORKER- PN:Subj Post-Op Subjective Date/time seen: 12/31/22 07:46 Interval history: Hospital follow up : 37 year-old woman is seen in follow up for hypoxemia, severe KAYLEE on BiPAP ; she developed a post op ileus with hypoxemia, treated with IV antibiotics. ? She used O2 last night instead of BiPAP, slept better, did not have a headache. She is looking forward to having her diet advanced. Her Jerry is sitting at bedside. WBC is a little higher, 19.6.? She is not having fevers.? She is on room air now, saturation is 93-97%. 12/20 - laparoscopic extensive lysis of adhesions/hysteroscopy/ polypectomy/dilatation curettage 12/23 - nausea, vomiting and difficulty taking in a deep breath, high wbc, poor oral intake, post op ileus. 12/25? CT with widespread intraperitoneal gas, fluid collection involving colonic mesentery LLL DATA *?12/25/22 CT abdomen?-??moderate atelectasis at the visualized lung bases; No pathologically enlarged abdominal or pelvic lymph nodes are identified. Again seen is widespread free intraperitoneal gas without significant change. There is a fluid collection involving the colonic mesentery in the left lower quadrant which has increased in size. There is persistent mild dilatation of multiple small bowel loops without focal transition point. There is mild lumbar spondylosis. IMPRESSION: 1. Persistent widespread free intraperitoneal gas without significant change. Small mesenteric fluid collection of the sigmoid mesentery in the left lower quadrant slightly increased in size. Findings remain suggestive of bowel perforation. 2. Dilated loops of small bowel without focal transition point, consistent with ileus. *??12/23/2022 CT abdomen:?Focal apparent wall defect in the mid sigmoid colon, possibly representing a sigmoid perforation, with surrounding mesenteric inflammation and gas, moderate generalized pneumoperitoneum, and small bowel ileus. SHODDY MILL WORKER - PN: Obj Data Vital Signs Vital Signs: Vital Signs - 24 hr 12/30/22 08:09 12/30/22 08:00 12/30/22 08:52 Temperature 96.7 F L Pulse Rate 96 88 91 Respiratory Rate 18 18 Blood Pressure 111/75 Pulse Oximetry 96 96 Oxygen Delivery Room Air Fraction of Inspired Oxygen 21 12/30/22 16:00 12/30/22 19:47 12/30/22 20:00 Temperature 96.9 F L 97 F L Pulse Rate 92 87 Respiratory Rate 18 18 Blood Pressure 110/72 98/60 L Pulse Oximetry 98 99 Oxygen Delivery Room Air Fraction of Inspired Oxygen 12/31/22 04:37 Temperature 97.1 F L Pulse Rate 85 Respiratory Rate 18 Blood Pressure 118/68 Pulse Oximetry 100 Oxygen Delivery Fraction of Inspired Oxygen Intake/Output Intake/Output: Intake & Output 12/28/22 12/29/22 12/30/22 12/31/22 23:59 23:59 23:59 23:59 Intake Total 3184 1920 3622 650 Output Total 1 1400 Balance 3181 9649 8282 650 Meds/Results Medications: Active Medications Generic Name Dose Route Start Last Admin Trade Name Freq PRN Reason Stop Dose Admin Acetaminophen 650 mg 12/29/22 09:51 Acetaminophen 325 Mg Tablet PO Q6H PRN Mild Pain (1-3) or Fever Aripiprazole 20 mg 12/29/22 21:00 12/30/22 21:11 Aripiprazole 10 Mg Tablet PO 01/27/23 08:59 20 mg QHS RAAD Administration Atorvastatin Calcium 10 mg 12/31/22 09:00 Atorvastatin 10 Mg Tablet PO DAILY RAAD Desvenlafaxine Succinate 100 mg 12/29/22 09:00 12/30/22 08:09 Desvenlafaxine Succinate 50 Mg Tab.Er.24h PO 01/28/23 08:59 100 mg DAILY RAAD Administration Dextrose 12.5 gm 12/24/22 02:27 Dextrose 50% 25 Gm/50 Ml Syringe IV PUSH PRN PRN Hypoglycemia Protocol Empagliflozin 25 mg 12/31/22 09:00 Empagliflozin 25 Mg Tablet PO DAILY RAAD Enoxaparin Sodium 40 mg 12/26/22 15:00 12/30/22 17:29 Enoxaparin 40 Mg/0.4 Ml Syringe SUB-Q 40
--- NOTE | 2022-12-31 07:47 | PM.GYNPNOP ---
RETORT CONDENSER ATTENDANT - A/P Time Spent With Patient Time: Total time spent is greater than 50% in coordination of care (as documented) at patient's floor/unit and/or counseling patient: Time with patient: less than 15 minutes RETORT CONDENSER ATTENDANT- PN:Conner Post-Op Subjective Date/time seen: 12/31/22 07:47 Interval history: Hospital follow up : 37 year-old woman is seen in follow up for hypoxemia, severe KAYLEE on BiPAP ; she developed a post op ileus with hypoxemia, treated with IV antibiotics. ? She used O2 last night instead of BiPAP, slept better, did not have a headache. She is looking forward to having her diet advanced. Her Jerry is sitting at bedside. WBC is a little higher, 19.6.? She is not having fevers.? She is on room air now, saturation is 93-97%. 12/20 - laparoscopic extensive lysis of adhesions/hysteroscopy/ polypectomy/dilatation curettage 12/23 - nausea, vomiting and difficulty taking in a deep breath, high wbc, poor oral intake, post op ileus. 12/25? CT with widespread intraperitoneal gas, fluid collection involving colonic mesentery LLL DATA *?12/25/22 CT abdomen?-??moderate atelectasis at the visualized lung bases; No pathologically enlarged abdominal or pelvic lymph nodes are identified. Again seen is widespread free intraperitoneal gas without significant change. There is a fluid collection involving the colonic mesentery in the left lower quadrant which has increased in size. There is persistent mild dilatation of multiple small bowel loops without focal transition point. There is mild lumbar spondylosis. IMPRESSION: 1. Persistent widespread free intraperitoneal gas without significant change. Small mesenteric fluid collection of the sigmoid mesentery in the left lower quadrant slightly increased in size. Findings remain suggestive of bowel perforation. 2. Dilated loops of small bowel without focal transition point, consistent with ileus. *??12/23/2022 CT abdomen:?Focal apparent wall defect in the mid sigmoid colon, possibly representing a sigmoid perforation, with surrounding mesenteric inflammation and gas, moderate generalized pneumoperitoneum, and small bowel ileus. RETORT CONDENSER ATTENDANT - PN: Obj Data Vital Signs Vital Signs: Vital Signs - 24 hr 12/30/22 08:09 12/30/22 08:00 12/30/22 08:52 Temperature 96.7 F L Pulse Rate 96 88 91 Respiratory Rate 18 18 Blood Pressure 111/75 Pulse Oximetry 96 96 Oxygen Delivery Room Air Fraction of Inspired Oxygen 21 12/30/22 16:00 12/30/22 19:47 12/30/22 20:00 Temperature 96.9 F L 97 F L Pulse Rate 92 87 Respiratory Rate 18 18 Blood Pressure 110/72 98/60 L Pulse Oximetry 98 99 Oxygen Delivery Room Air Fraction of Inspired Oxygen 12/31/22 04:37 Temperature 97.1 F L Pulse Rate 85 Respiratory Rate 18 Blood Pressure 118/68 Pulse Oximetry 100 Oxygen Delivery Fraction of Inspired Oxygen Intake/Output Intake/Output: Intake & Output 12/28/22 12/29/22 12/30/22 12/31/22 23:59 23:59 23:59 23:59 Intake Total 3187 1920 3622 650 Output Total 1 1400 Balance 3184 2555 4792 650 Meds/Results Medications: Active Medications Generic Name Dose Route Start Last Admin Trade Name Freq PRN Reason Stop Dose Admin Acetaminophen 650 mg 12/29/22 09:51 Acetaminophen 325 Mg Tablet PO Q6H PRN Mild Pain (1-3) or Fever Aripiprazole 20 mg 12/29/22 21:00 12/30/22 21:11 Aripiprazole 10 Mg Tablet PO 01/27/23 08:59 20 mg QHS RAAD Administration Atorvastatin Calcium 10 mg 12/31/22 09:00 Atorvastatin 10 Mg Tablet PO DAILY RAAD Desvenlafaxine Succinate 100 mg 12/29/22 09:00 12/30/22 08:09 Desvenlafaxine Succinate 50 Mg Tab.Er.24h PO 01/28/23 08:59 100 mg DAILY RAAD Administration Dextrose 12.5 gm 12/24/22 02:27 Dextrose 50% 25 Gm/50 Ml Syringe IV PUSH PRN PRN Hypoglycemia Protocol Empagliflozin 25 mg 12/31/22 09:00 Empagliflozin 25 Mg Tablet PO DAILY RAAD Enoxaparin Sodium 40 mg 12/26/22 15:00 12/30/22 17:29 En
--- NOTE | 2022-12-31 07:47 | PM.GYNPNOP ---
SECOND WORKER - A/P Time Spent With Patient Time: Total time spent is greater than 50% in coordination of care (as documented) at patient's floor/unit and/or counseling patient: Time with patient: less than 15 minutes SECOND WORKER- PN:Conner Post-Op Subjective Date/time seen: 12/31/22 07:47 Interval history: Hospital follow up : 37 year-old woman is seen in follow up for hypoxemia, severe KAYLEE on BiPAP ; she developed a post op ileus with hypoxemia, treated with IV antibiotics. ? She used O2 last night instead of BiPAP, slept better, did not have a headache. She is looking forward to having her diet advanced. Her Jerry is sitting at bedside. WBC is a little higher, 19.6.? She is not having fevers.? She is on room air now, saturation is 93-97%. 12/20 - laparoscopic extensive lysis of adhesions/hysteroscopy/ polypectomy/dilatation curettage 12/23 - nausea, vomiting and difficulty taking in a deep breath, high wbc, poor oral intake, post op ileus. 12/25? CT with widespread intraperitoneal gas, fluid collection involving colonic mesentery LLL DATA *?12/25/22 CT abdomen?-??moderate atelectasis at the visualized lung bases; No pathologically enlarged abdominal or pelvic lymph nodes are identified. Again seen is widespread free intraperitoneal gas without significant change. There is a fluid collection involving the colonic mesentery in the left lower quadrant which has increased in size. There is persistent mild dilatation of multiple small bowel loops without focal transition point. There is mild lumbar spondylosis. IMPRESSION: 1. Persistent widespread free intraperitoneal gas without significant change. Small mesenteric fluid collection of the sigmoid mesentery in the left lower quadrant slightly increased in size. Findings remain suggestive of bowel perforation. 2. Dilated loops of small bowel without focal transition point, consistent with ileus. *??12/23/2022 CT abdomen:?Focal apparent wall defect in the mid sigmoid colon, possibly representing a sigmoid perforation, with surrounding mesenteric inflammation and gas, moderate generalized pneumoperitoneum, and small bowel ileus. SECOND WORKER - PN: Obj Data Vital Signs Vital Signs: Vital Signs - 24 hr 12/30/22 08:09 12/30/22 08:00 12/30/22 08:52 Temperature 96.7 F L Pulse Rate 96 88 91 Respiratory Rate 18 18 Blood Pressure 111/75 Pulse Oximetry 96 96 Oxygen Delivery Room Air Fraction of Inspired Oxygen 21 12/30/22 16:00 12/30/22 19:47 12/30/22 20:00 Temperature 96.9 F L 97 F L Pulse Rate 92 87 Respiratory Rate 18 18 Blood Pressure 110/72 98/60 L Pulse Oximetry 98 99 Oxygen Delivery Room Air Fraction of Inspired Oxygen 12/31/22 04:37 Temperature 97.1 F L Pulse Rate 85 Respiratory Rate 18 Blood Pressure 118/68 Pulse Oximetry 100 Oxygen Delivery Fraction of Inspired Oxygen Intake/Output Intake/Output: Intake & Output 12/28/22 12/29/22 12/30/22 12/31/22 23:59 23:59 23:59 23:59 Intake Total 318 1920 3622 650 Output Total 1 1400 Balance 3184 7311 9562 650 Meds/Results Medications: Active Medications Generic Name Dose Route Start Last Admin Trade Name Freq PRN Reason Stop Dose Admin Acetaminophen 650 mg 12/29/22 09:51 Acetaminophen 325 Mg Tablet PO Q6H PRN Mild Pain (1-3) or Fever Aripiprazole 20 mg 12/29/22 21:00 12/30/22 21:11 Aripiprazole 10 Mg Tablet PO 01/27/23 08:59 20 mg QHS RAAD Administration Atorvastatin Calcium 10 mg 12/31/22 09:00 Atorvastatin 10 Mg Tablet PO DAILY RAAD Desvenlafaxine Succinate 100 mg 12/29/22 09:00 12/30/22 08:09 Desvenlafaxine Succinate 50 Mg Tab.Er.24h PO 01/28/23 08:59 100 mg DAILY RAAD Administration Dextrose 12.5 gm 12/24/22 02:27 Dextrose 50% 25 Gm/50 Ml Syringe IV PUSH PRN PRN Hypoglycemia Protocol Empagliflozin 25 mg 12/31/22 09:00 Empagliflozin 25 Mg Tablet PO DAILY RAAD Enoxaparin Sodium 40 mg 12/26/22 15:00 12/30/22 17:29 En
--- NOTE | 2022-12-31 07:48 | PM.GYNPNOP ---
CABLE WEAVER - A/P Postoperative Postoperative status: post-op ileus Postoperative plan: other (appreciate surgical care) Time Spent With Patient Time: Total time spent is greater than 50% in coordination of care (as documented) at patient's floor/unit and/or counseling patient: Time with patient: 15 - 25 minutes CABLE WEAVER- PN:Conner Post-Op Subjective Date/time seen: 12/31/22 07:48 Interval history: spirits improved Subjective: patient reports feeling better Exam Const: General: cooperative, healthy appearing and comfortable Nutritional Appearance: obese Orientation/consciousness: oriented to person, oriented to place and oriented to time HENMT: Head: normal to inspection Resp: Effort & Inspection: normal respiratory effort Cardio: Rate: regular rate Rhythm: regular rhythm Heart sounds: S1 normal heart sound present and S2 normal heart sound present GI: Inspection: normal to inspection, incision (cdi) and Pannus present GI Palp: Yes abdominal tenderness CABLE WEAVER - PN: Obj Data Vital Signs Vital Signs: Vital Signs - 24 hr 12/30/22 08:09 12/30/22 08:00 12/30/22 08:52 Temperature 96.7 F L Pulse Rate 96 88 91 Respiratory Rate 18 18 Blood Pressure 111/75 Pulse Oximetry 96 96 Oxygen Delivery Room Air Fraction of Inspired Oxygen 21 12/30/22 16:00 12/30/22 19:47 12/30/22 20:00 Temperature 96.9 F L 97 F L Pulse Rate 92 87 Respiratory Rate 18 18 Blood Pressure 110/72 98/60 L Pulse Oximetry 98 99 Oxygen Delivery Room Air Fraction of Inspired Oxygen 12/31/22 04:37 Temperature 97.1 F L Pulse Rate 85 Respiratory Rate 18 Blood Pressure 118/68 Pulse Oximetry 100 Oxygen Delivery Fraction of Inspired Oxygen Intake/Output Intake/Output: Intake & Output 12/28/22 12/29/22 12/30/22 12/31/22 23:59 23:59 23:59 23:59 Intake Total 5449 1920 3622 650 Output Total 1 1400 Balance 3189 1917 2222 650 Meds/Results Medications: Active Medications Generic Name Dose Route Start Last Admin Trade Name Freq PRN Reason Stop Dose Admin Acetaminophen 650 mg 12/29/22 09:51 Acetaminophen 325 Mg Tablet PO Q6H PRN Mild Pain (1-3) or Fever Aripiprazole 20 mg 12/29/22 21:00 12/30/22 21:11 Aripiprazole 10 Mg Tablet PO 01/27/23 08:59 20 mg QHS RAAD Administration Atorvastatin Calcium 10 mg 12/31/22 09:00 Atorvastatin 10 Mg Tablet PO DAILY RAAD Desvenlafaxine Succinate 100 mg 12/29/22 09:00 12/30/22 08:09 Desvenlafaxine Succinate 50 Mg Tab.Er.24h PO 01/28/23 08:59 100 mg DAILY RAAD Administration Dextrose 12.5 gm 12/24/22 02:27 Dextrose 50% 25 Gm/50 Ml Syringe IV PUSH PRN PRN Hypoglycemia Protocol Empagliflozin 25 mg 12/31/22 09:00 Empagliflozin 25 Mg Tablet PO DAILY RAAD Enoxaparin Sodium 40 mg 12/26/22 15:00 12/30/22 17:29 Enoxaparin 40 Mg/0.4 Ml Syringe SUB-Q 40 mg DAILY@1500 RAAD Administration Glucagon 1 mg 12/24/22 02:27 Glucagon For Inj 1 Mg Vial IM PRN PRN Hypoglycemia Protocol Glucose 15 gm 12/24/22 02:27 Glucose Oral Gel 15 Gm Of Glucse In 37.5 Gm Tube PO PRN PRN Hypoglycemia Protocol Hydralazine HCl 10 mg 12/24/22 02:46 Hydralazine Hcl 20 Mg/Ml Vial IV PUSH Q8H PRN Blood Pressure - High Hydromorphone HCl 1 mg 12/25/22 10:21 12/29/22 12:46 Hydromorphone Hcl Inj (*Crx) 1 Mg/Ml Syr IV PUSH 1 mg Q2H PRN Administration Breakthrough Pain Hydroxyzine Pamoate 25 mg 12/30/22 14:41 Hydroxyzine Pamoate 25 Mg Capsule PO TID PRN Anxiety Dextrose 1,000 mls @ 100 mls/hr 12/24/22 02:27 Dextrose 5% 1,000 Ml IVPB PRN PRN Hypoglycemia Protocol Metronidazole 500 mg in 100 mls @ 100 mls/hr 12/24/22 10:00 12/31/22 05:17 Flagyl 500 Mg/Iso Soln 100 Ml IVPB 100 mls/hr Q6HR RAAD Administration Piperacillin/Tazobactam/Dextrose 3.375 gm in 50 mls @ 100 mls/hr 12/25/22 12:00 12/31/22 05:17 Zosyn 3.37
[2022-12-31 09:12] VITALS: PULSE 88
[2022-12-31] MEDS: EMPAGLIFLOZIN 25 MG TABLET PO (09:12)
[2022-12-31] MEDS: PANTOPRAZOLE SODIUM IV 40 MG VIAL IV PUSH ×2 (09:12→20:13)
[2022-12-31] MEDS: DESVENLAFAXINE SUCCINATE 50 MG TAB.ER.24H 100 MG PO (09:12)
[2022-12-31] MEDS: NEOMYCIN/POLYMYXIN/BACITRACIN OINTMENT 15 GM TUBE 1 APPLIC TOPICAL ×2 (09:12→20:14)
[2022-12-31] MEDS: TOPIRAMATE 25 MG TABLET BY MOUTH (09:12)
[2022-12-31] MEDS: METOPROLOL SUCCINATE EXT REL 12.5 MG TABCR PO (09:12)
[2022-12-31] MEDS: ATORVASTATIN 10 MG TABLET PO (09:13)
[2022-12-31 09:29] LABS: Glucose Point of Care 126 mg/dl (65-105)
--- NOTE | 2022-12-31 10:04 | PCNWS ---
Weekly nutritional screen. Patient is tolerating current diabetic / low fiber diet with adequate intake at 100% all meals. No weight loss reported. No nutritional needs at this time.
[2022-12-31] MEDS: LORazepam INJ (*CRX) 2 MG/ML VIAL 0.5 MG IV PUSH (11:10)
--- NOTE | 2022-12-31 11:23 | PM.IMPN ---
Progress Note: A&P Assessment and Plan (1) Bowel perforation: Code(s): K63.1 - Perforation of intestine (nontraumatic) Status: Acute Assessment and Plan: Patient presents with abdominal pain after a laparoscopic abdominal procedure. CT A/P on 12/23 shows focal apparent wall defect in the mid sigmoid colon possibly perforation with surrounding inflammation and gas. Patient was having increasing abdominal pain so CT repeated. Repeat CT on 12/25 shows persistent widespread free intraperitoneal air without significant change. She has a small mesenteric fluid collection in the sigmoid mesentery concerning for bowel perforation. She also has dilated small bowel consistent with ileus. General surgery following. Abd pain better and still having BMs. WBC better at 14.7K. Tolerating current diet. Continue IV antibiotics. Discussed with GenSurg. Plan for repeat CT A/P today. If CT showing no acute changes or drainable fluid collections, then plan to change to oral Augmentin and Flagyl x 2 weeks after discharge. Repeat Lasix x 1. (2) Post-operative complication: Code(s): T81.9XXA - Unspecified complication of procedure, initial encounter Status: Acute Assessment and Plan: Had exploratory laparoscopy 12/20. CT scan as above and noted possible sigmoid perforation felt related to complication from the procedure. She was started on Zosyn 12/23-. Antibiotics changed to Rocephin and Flagyl on 12/24 but changed back to Zosyn and Flagyl 12/25. Pain controlled. WBC better today and no fevers. BCx negative Appreciate general surgery input. As above. (3) Type 2 diabetes mellitus: Code(s): E11.9 - Type 2 diabetes mellitus without complications Status: Acute Assessment and Plan: A1c 7.6. The patient's blood glucose was reviewed on 12/31 Glucose reasonably well controlled but still values in the 200's. Glucose 178 this morning. Continue AccuCheks covering with sliding scale. Hypoglycemia protocol available as needed. Continue to monitor. Continue to advance Lantus. Continue diabetic diet (4) KAYLEE (obstructive sleep apnea): Code(s): G47.33 - Obstructive sleep apnea (adult) (pediatric) Status: Acute Assessment and Plan: Patient has KAYLEE on BiPAP at home. Last titration was in 2019 current BiPAP settings are IPAP 19/EPAP 15, no oxygen bleed in Pulmonology consulted BiPAP stopped for fear that this may worsen the ileus. Using supplemental O2 at night. Pulmonary recommended holding BiPAP for a week after going home. (5) Hypokalemia: Code(s): E87.6 - Hypokalemia Status: Acute Assessment and Plan: Potassium stable. Follow. (6) Hyponatremia: Code(s): E87.1 - Hypo-osmolality and hyponatremia Status: Acute Assessment and Plan: Sodium dropped to 129. Sodium stable at 136 Follow (7) Depression: Qualifiers: Active/Remission status: currently active Depression Type: major depressive disorder Major depression episode severity: mild Major depression recurrence: recurrent Qualified Code(s): F33.0 - Major depressive disorder, recurrent, mild Code(s): F32.9 - Major depressive disorder, single episode, unspecified Status: Acute Assessment and Plan: Patient is on Pristiq and Abilify at home whcih now have been resumed. Follow Plan DVT prophylaxis with SCDs and Lovenox GI prophylaxis with PPI Code status full code Subjective Date/time seen: 12/31/22 11:23 Interval history: 37yo female with KAYLEE, DM and HTN who underwent laparoscopic lysis of adhesions on 12/20 who returned for abdominal pain and found to have possible bowel perforation. Patient increasing abdominal spasm/pain overnight. She was able to sleep once she received pain medications. She is passing flatus and bowel movements. She denies hematochezia. Tolerating oral intake without nausea or vomiting. Exam Narrative: AF 118
--- NOTE | 2022-12-31 11:49 | PM.PNGS ---
Progress Note: A&P Assessment and Plan (1) Bowel perforation: Code(s): K63.1 - Perforation of intestine (nontraumatic) Status: Acute Assessment and Plan: Patient continues to slowly improve from her likely small colonic perforation after laparoscopic pelvic adhesiolysis by Dr. Rell Slater. White blood cell count is lower today. She continues to have formed bowel movements and remains afebrile. We will repeat her CT scan today with oral and IV contrast. If there is no abscess to drain then I would suggest transitioning to oral antibiotics today and stopping the IV antibiotics. If she remains stable on oral antibiotics and I think she can be discharged home tomorrow on oral antibiotics for another 2 weeks. Subjective Subjective Date/Time Seen: 12/31/22 11:49 Interval history: Patient continues to tolerate low residual diet and having formed bowel movements. She has remained afebrile with stable lower abdominal pain which has been control with strictly oral pain medications. No tachycardia or hypotension. White blood cell count is down to 14,700 today. Review of Systems Review of Systems: The remainder of the review of systems to include constitutional, HEENT, cardiovascular, respiratory, GI, , integumentary, musculoskeletal, endocrine, immunologic, hematologic, psychiatric, and neurologic are all negative except for which is mentioned above in the HPI. Exam Narrative: Abdomen is soft and nondistended. Mild diffuse tenderness across the lower abdomen. No guarding or peritoneal signs. Good bowel sounds. No acute surgical abdomen. Objective Data Vital Signs Vital Signs: Vital Signs - 24 hr 12/30/22 16:00 12/30/22 19:47 12/30/22 20:00 Temperature 36.1 C L 36.1 C L Pulse Rate 92 87 Respiratory Rate 18 18 Blood Pressure 110/72 98/60 L Pulse Oximetry 98 99 Oxygen Delivery Room Air 12/31/22 04:37 12/31/22 09:12 Temperature 36.2 C L Pulse Rate 85 88 Respiratory Rate 18 Blood Pressure 118/68 Pulse Oximetry 100 Oxygen Delivery Intake/Output Intake/Output: Intake & Output 12/28/22 12/29/22 12/30/22 12/31/22 23:59 23:59 23:59 23:59 Intake Total 3185 1920 3622 1010 Output Total 1 1400 Balance 3185 1919 2222 1010 Meds/Results Medications: Active Medications Generic Name Dose Route Start Last Admin Trade Name Freq PRN Reason Stop Dose Admin Acetaminophen 650 mg 12/29/22 09:51 Acetaminophen 325 Mg Tablet PO Q6H PRN Mild Pain (1-3) or Fever Aripiprazole 20 mg 12/29/22 21:00 12/30/22 21:11 Aripiprazole 10 Mg Tablet PO 01/27/23 08:59 20 mg QHS RAAD Administration Atorvastatin Calcium 10 mg 12/31/22 09:00 12/31/22 09:13 Atorvastatin 10 Mg Tablet PO 10 mg DAILY RAAD Administration Desvenlafaxine Succinate 100 mg 12/29/22 09:00 12/31/22 09:12 Desvenlafaxine Succinate 50 Mg Tab.Er.24h PO 01/28/23 08:59 100 mg DAILY RAAD Administration Dextrose 12.5 gm 12/24/22 02:27 Dextrose 50% 25 Gm/50 Ml Syringe IV PUSH PRN PRN Hypoglycemia Protocol Empagliflozin 25 mg 12/31/22 09:00 12/31/22 09:12 Empagliflozin 25 Mg Tablet PO 25 mg DAILY RAAD Administration Enoxaparin Sodium 40 mg 12/26/22 15:00 12/30/22 17:29 Enoxaparin 40 Mg/0.4 Ml Syringe SUB-Q 40 mg DAILY@1500 RAAD Administration Glucagon 1 mg 12/24/22 02:27 Glucagon For Inj 1 Mg Vial IM PRN PRN Hypoglycemia Protocol Glucose 15 gm 12/24/22 02:27 Glucose Oral Gel 15 Gm Of Glucse In 37.5 Gm Tube PO PRN PRN Hypoglycemia Protocol Hydralazine HCl 10 mg 12/24/22 02:46 Hydralazine Hcl 20 Mg/Ml Vial IV PUSH Q8H PRN Blood Pressure - High Hydromorphone HCl 1 mg 12/25/22 10:21 12/29/22 12:46 Hydromorphone Hcl Inj (*Crx) 1 Mg/Ml Syr IV PUSH 1 mg Q2H PRN Administration Breakthrough Pain Hydroxyzine Pamoate 25 mg 12/30/22 14:41 Hydroxyzine Pamoate 25 Mg C
[2022-12-31 11:54] LABS: Glucose Point of Care 156 mg/dl (65-105)
[2022-12-31] MEDS: FUROSEMIDE INJ 40 MG/4 ML VIAL 20 MG IV PUSH (12:37)
[2022-12-31 14:06] VITALS: BP 125/71; PULSE 96; RESP 18; TEMP 35.7; O2SAT 98
[2022-12-31 16:23] LABS: Glucose Point of Care 162 mg/dl (65-105)
--- NOTE | 2022-12-31 17:18 | PCRCNOTE ---
RT entered room asking about CPAP home use. Pt stated she does wear one at home but the provider here during her stay has told not to wear one for the time being. Pt states she has also been wearing 2L at NOC while here and is refusing the use of one of our CPAP units.
[2022-12-31] MEDS: ENOXAPARIN 40 MG/0.4 ML SYRINGE SUB-Q (18:05)
[2022-12-31] MEDS: ARIPiprazole 10 MG TABLET 20 MG PO (20:13)
[2022-12-31 20:33] LABS: Glucose Point of Care 266 mg/dl (65-105)
[2022-12-31] MEDS: TOPIRAMATE 25 MG TABLET 50 MG BY MOUTH (20:50)
[2022-12-31] MEDS: INSULIN GLARGINE (*BKC) 100 UNITS/ML 15 UNITS SUB-Q (20:54)
[2022-12-31 21:45] VITALS: BP 132/78; PULSE 99; RESP 20; TEMP 36.2; O2SAT 99
[2023-01-01] MEDS: oxyCODONE/ACETAMINOPHEN (*CRX) 10-325 MG TABLET 1 TAB PO ×4 (00:33→14:41)
[2023-01-01 05:03] VITALS: BP 118/80; PULSE 101; RESP 18; TEMP 36.3; O2SAT 100
[2023-01-01] MEDS: metroNIDAZOLE 500 MG/ISO 100ML 500 MG/100 ML BAG 100 MG IVPB ×2 (05:08→12:44)
[2023-01-01] MEDS: SALINE LOCK FLUSH 10 ML IV PUSH (05:27)
[2023-01-01] MEDS: ACETAMINOPHEN 325 MG TABLET 650 MG PO (07:31)
[2023-01-01 08:06] LABS: Glucose Point of Care 161 mg/dl (65-105)
[2023-01-01 08:36] VITALS: PULSE 80
[2023-01-01] MEDS: DESVENLAFAXINE SUCCINATE 50 MG TAB.ER.24H 100 MG PO (08:36)
[2023-01-01] MEDS: METOPROLOL SUCCINATE EXT REL 12.5 MG TABCR PO (08:36)
[2023-01-01] MEDS: EMPAGLIFLOZIN 25 MG TABLET PO (08:36)
[2023-01-01] MEDS: ATORVASTATIN 10 MG TABLET PO (08:36)
[2023-01-01] MEDS: PANTOPRAZOLE SODIUM IV 40 MG VIAL IV PUSH (08:36)
[2023-01-01] MEDS: TOPIRAMATE 25 MG TABLET BY MOUTH (08:37)
[2023-01-01] MEDS: NEOMYCIN/POLYMYXIN/BACITRACIN OINTMENT 15 GM TUBE 1 APPLIC TOPICAL (08:37)
[2023-01-01 10:48] LABS: Hematocrit 40.5 % (37.0-47.0); Hemoglobin 12.8 g/dL (12.0-15.0); Mean Corpuscular HGB Conc 31.6 g/dl (32-36); Mean Corpuscular Hemoglobin 29.6 pg (26-34); Mean Corpuscular Volume 93.8 fl (80-100); Mean Platelet Volume 9.1 fl (7.4-10.4); Platelet Count Result 375 k/mm3 (150-375); Red Blood Count 4.32 M/mm3 (4.2-5.4); Red Cell Distribution Width 14.6 % (11.5-14.5); White Blood Count 14.2 K/mm3 (4.5-10.0)
[2023-01-01 11:26] LABS: Glucose Point of Care 232 mg/dl (65-105)
[2023-01-01] MEDS: INSULIN ASPART (*BKC) 100 UNITS/ML SUB-Q (12:21)
--- NOTE | 2023-01-01 12:56 | PM.PNGS ---
Progress Note: A&P Assessment and Plan (1) Bowel perforation: Code(s): K63.1 - Perforation of intestine (nontraumatic) Status: Acute Assessment and Plan: CT scan reviewed this morning and there is an 8 x 3.3 cm collection of mostly extraluminal gas in the anterior abdomen. Discussed the CT results and plan with Dr. Vazquez. She is clinically improving, her WBC count continues to trend down and she is afebrile. Bowels are moving and she is tolerating her diet. Okay from our standpoint to discharge the patient today and transition her to oral antibiotics for another two weeks. We will have her follow-up with Dr. Tolliver next week. Plan I have discussed the patient's case and plan of care with Dr. Vazquez. Subjective Subjective Date/Time Seen: 01/01/23 11:56 Patient reports: no new complaints, feels better, pain is less, tolerating a regular diet, flatus, bowel movement and afebrile Interval history: Patient feeling better again today. She reports her abdominal cramping and pain continues to improve daily. She denies any nausea or vomiting. Tolerating her diet. No acute changes overnight or other complaints at this time. Review of Systems Review of Systems: All systems reviewed & are unremarkable except as noted in HPI and below Exam Const: General: comfortable and no acute distress Nutritional Appearance: obese morbidly obese Orientation/consciousness: patient oriented x3 GI: Inspection: incision (incisions dry and intact), Pannus present and obesity GI Palp: Yes Soft to palpation, Yes Tenderness to palpation present (GI) (very mild TTP in mid lower abdomen and LUQ, much improved), No Guarding due to palpation present (GI) and No Rebound tenderness present Auscultation: normal bowel sounds Neuro: General: moves all extremities and no focal motor deficits Extrem: General: no edema Psych: Mental Status: mental status grossly normal Insight: Good insight present (Psych) Objective Data Vital Signs Vital Signs: Vital Signs - 24 hr 12/31/22 14:06 12/31/22 19:28 12/31/22 21:45 Temperature 96.3 F L 97.2 F L Pulse Rate 96 99 Respiratory Rate 18 20 Blood Pressure 125/71 132/78 Pulse Oximetry 98 99 Oxygen Delivery Room Air 01/01/23 05:03 01/01/23 08:36 Temperature 97.3 F L Pulse Rate 101 H 80 Respiratory Rate 18 Blood Pressure 118/80 Pulse Oximetry 100 Oxygen Delivery Intake/Output Intake/Output: Intake & Output 12/29/22 12/30/22 12/31/22 01/01/23 23:59 23:59 23:59 23:59 Intake Total 1920 3622 3100 780 Output Total 1 1400 Balance 1919 2222 3100 780 Meds/Results Medications: Active Medications Generic Name Dose Route Start Last Admin Trade Name Freq PRN Reason Stop Dose Admin Acetaminophen 650 mg 12/29/22 09:51 01/01/23 07:31 Acetaminophen 325 Mg Tablet PO 650 mg Q6H PRN Administration Mild Pain (1-3) or Fever Aripiprazole 20 mg 12/29/22 21:00 12/31/22 20:13 Aripiprazole 10 Mg Tablet PO 01/27/23 08:59 20 mg QHS RAAD Administration Atorvastatin Calcium 10 mg 12/31/22 09:00 01/01/23 08:36 Atorvastatin 10 Mg Tablet PO 10 mg DAILY RAAD Administration Desvenlafaxine Succinate 100 mg 12/29/22 09:00 01/01/23 08:36 Desvenlafaxine Succinate 50 Mg Tab.Er.24h PO 01/28/23 08:59 100 mg DAILY RAAD Administration Dextrose 12.5 gm 12/24/22 02:27 Dextrose 50% 25 Gm/50 Ml Syringe IV PUSH PRN PRN Hypoglycemia Protocol Empagliflozin 25 mg 12/31/22 09:00 01/01/23 08:36 Empagliflozin 25 Mg Tablet PO 25 mg DAILY RAAD Administration Enoxaparin Sodium 40 mg 12/26/22 15:00 12/31/22 18:05 Enoxaparin 40 Mg/0.4 Ml Syringe SUB-Q 40 mg DAILY@1500 RAAD Administration Glucagon 1 mg 12/24/22 02:27 Glucagon For Inj 1 Mg Vial IM PRN PRN Hypoglycemia Protocol Glucose 15 gm 12/24/22 02:27 Glucose Oral Gel 15 Gm Of Glucse In 37.5 Gm Tube PO PRN PRN Hypoglycemia Protocol
--- NOTE | 2023-01-01 13:24 | PM.IMPN ---
Progress Note: A&P Assessment and Plan (1) Bowel perforation: Code(s): K63.1 - Perforation of intestine (nontraumatic) Status: Acute Assessment and Plan: Patient presents with abdominal pain after a laparoscopic abdominal procedure. CT A/P on 12/23 shows focal apparent wall defect in the mid sigmoid colon possibly perforation with surrounding inflammation and gas. Patient was having increasing abdominal pain so CT repeated. Repeat CT on 12/25 shows persistent widespread free intraperitoneal air without significant change. She has a small mesenteric fluid collection in the sigmoid mesentery concerning for bowel perforation. She also has dilated small bowel consistent with ileus. General surgery following. Abdomen pain better and still having BMs. WBC better. Plan for repeat CT A/P today. If CT showing no acute changes or drainable fluid collections, then plan to change to oral Augmentin and Flagyl x 2 weeks after discharge (2) Post-operative complication: Code(s): T81.9XXA - Unspecified complication of procedure, initial encounter Status: Acute Assessment and Plan: Had exploratory laparoscopy 12/20. CT scan as above and noted possible sigmoid perforation felt related to complication from the procedure. She was started on Zosyn 12/23-. Antibiotics changed to Rocephin and Flagyl on 12/24 but changed back to Zosyn and Flagyl 12/25. Pain controlled. WBC better today and no fevers. BCx negative Appreciate general surgery input. (3) Type 2 diabetes mellitus: Code(s): E11.9 - Type 2 diabetes mellitus without complications Status: Acute Assessment and Plan: A1c 7.6. Continue to advance Lantus. Continue diabetic diet (4) KAYLEE (obstructive sleep apnea): Code(s): G47.33 - Obstructive sleep apnea (adult) (pediatric) Status: Acute Assessment and Plan: Patient has KAYLEE on BiPAP at home. Last titration was in 2019 current BiPAP settings are IPAP 19/EPAP 15, no oxygen bleed in Pulmonology consulted BiPAP stopped for fear that this may worsen the ileus. Using supplemental O2 at night. Pulmonary recommended holding BiPAP for a week after going home. (5) Hypokalemia: Code(s): E87.6 - Hypokalemia Status: Acute Assessment and Plan: Potassium stable. (6) Hyponatremia: Code(s): E87.1 - Hypo-osmolality and hyponatremia Status: Acute Assessment and Plan: Sodium dropped to 129. Sodium stable at 136 (7) Depression: Qualifiers: Depression Type: major depressive disorder Major depression recurrence: recurrent Active/Remission status: currently active Major depression episode severity: mild Qualified Code(s): F33.0 - Major depressive disorder, recurrent, mild Code(s): F32.9 - Major depressive disorder, single episode, unspecified Status: Acute Assessment and Plan: Patient is on Pristiq and Abilify at home which now have been resumed. Pt mood is stable Subjective Date/time seen: 01/01/23 13:24 Interval history: 37 yo female with KAYLEE, DM and HTN who underwent laparoscopic lysis of adhesions on 12/20 who returned for abdominal pain and found to have possible bowel perforation. Pt is medically stable, surgery signed off, pt will follow up with Dr. Tolliver next week Pt can have lasix 40 mg po x1 prior to DC for some swelling in legs and arms. Review of Systems Review of Systems: Mild leg edema, mild swelling in hands Exam Narrative: Generally: swollen arms and legs Chest - CTA bilaterally, nml RR CV - RRR S1/S2 Abdo - soft, morbidly obese, pannus, few bruises, incisions dry and intact, small incision Ext - Trace pedal edema. Negative Homans Psych - Nml mood and affect Skin - Warm and dry Objective Data Vital Signs Vital Signs: Vital Signs - 24 hr 12/31/22 14:06 12/31/22 19:28 12/31/22 21:45 Temperature 35.7 C L 36.2 C L Pulse Rate 96 99 Respiratory Ra
[2023-01-01 13:46] VITALS: BP 120/68; PULSE 100; RESP 18; TEMP 36.6; O2SAT 100
[2023-01-01] MEDS: FUROSEMIDE 40 MG TABLET PO (14:41)
--- NOTE | 2023-01-08 07:57 | PM.DS ---
DS: Admitting Diagnosis Discharge Date 01/01/23 Admitting Diagnosis Pelvic pain DS: Discharge Diagnosis Discharge Diagnosis (1) Ileus, postoperative: Code(s): K91.89 - Other postprocedural complications and disorders of digestive system; K56.7 - Ileus, unspecified Status: Acute (2) Hyponatremia: Code(s): E87.1 - Hypo-osmolality and hyponatremia Status: Acute DS: Summary Hospital Course Reason for hospitalization: Patient was admitted with severe pain 3 days postop laparoscopic lysis of adhesions. Hospital Course: Imaging and ER findings were consistent with possible perforation of colon and or possible abscess. Immediate consultation with General surgery was undertaken. As her white count was elevated and signs appeared to be consistent with a possible perforation injury. She was placed on antibiotics and her white count eventually normalized at with IV antibiotics returned to p.o. antibiotics. She was discharged with follow-up in a week for follow-up in General surgery was follow with her at the. Time Spent with Patient Time attestation: Total time spent providing and/or coordinating discharge services: Exam Const: General: cooperative and comfortable Nutritional Appearance: obese Orientation/consciousness: oriented to person, oriented to place and oriented to time Resp: Effort & Inspection: normal respiratory effort Cardio: Rate: regular rate Rhythm: regular rhythm Heart sounds: S1 normal heart sound present and S2 normal heart sound present GI: Inspection: normal to inspection, incision (Wounds remained clean dry and intact), Pannus present and obesity Discharge Plan Discharge Attending physician on discharge: Mason Day Consulting providers: Abram Tolliver ; Ann Rosario ; Isi Spencer ; Angela Guerrero ; Vladimir Ma ; Pollo Mckeon ; Keeley Buckner ; Ildefonso Bedolla ; Nahid Sheriff ; Genna Ruiz ; Kam Chan ; Bay Albert ; Darrin Calderon Discharging Clinician: Mason Day Anticipated Discharge Date/Time: 01/01/23 14:54 Patient Disposition: Home, Self-Care Activity: march shower Diet: heart healthy and low fiber Wound Care Instructions: follow printed instructions and incision open to air Discharge Instructions: Resume BiPAP at home one week after discharge. General Surgery Instructions for Dr. Tolliver: Follow-up in the office with Dr. Tolliver in 1 week. We will schedule the appointment and call you within the next 1-2 days. ([phone]) Call sooner with any questions/concerns. 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 You were given Hominy (hydrocodone/acetaminophen) after your initial surgery and stated you had a few tablets left. I have sent a few more tablets of the same narcotic pain medication that can be taken NEEDED for more severe pain. Do not drive while taking this medication. Transition to [id number] medication, such as Tylenol and/or Ibuprofen as needed for your abdominal pain as it improves. If you have worsening abdominal pain, fever, or vomiting, then call the office or return to the ER. Patient Instructions: Antibiotic Form, How to Stop Smoking (GEN), Removal of a Central Line, PICC, or Midline Catheter (DC) Stand Alone Forms: General Discharge Information Follow-up/Referrals: Mason Day MD [Physician] - 1 Week Abram Tolliver MD [Physician] - 1 Week Discharge Medications: New amoxicillin-pot clavulanate 875-125 mg tablet 1 tablet PO Q12H Qty: 28 0RF metronidazole 500 mg tablet 500 mg PO Q8H Qty: 42 0RF Triple Antibiotic 3.5mg-400 unit- 5,000 unit/gram Ointment 1 applic topical Q12HR 0RF Continued aripiprazole 20 mg tablet 20 mg PO DAILY desvenlafaxine succinate 100 mg tablet extended release 24 hr 100 mg PO DAILY spironolactone 100 mg tablet 200 mg PO DAILY 90 Days Qty: 180 3RF hydroxyzine pamoa
== END 2023-01-01 17:02 | disposition home or self-care (01) | DRG 920 ==
LOC: ANHED 21:49 → ANHIMU 22:14 → ANH3MEDSUR 12-29 12:14
PROVIDERS: Internal Medicine; Nurse Practitioner; Nurse Practitioner Family; Student in an Organized Health Care Education/Training Program; Surgery; Admitting Provider Obstetrics & Gynecology; Emergency Provider Emergency Medicine; PCP Family Medicine; Visit Provider Obstetrics & Gynecology
DX: K91.71 Accidental puncture and laceration of a digestive system organ or structure during a digestive system procedure (principal); E87.1 Hypo-osmolality and hyponatremia; K56.7 Ileus, unspecified; F33.0 Major depressive disorder, recurrent, mild; Z68.43 Body mass index [BMI] 50.0-59.9, adult; E11.9 Type 2 diabetes mellitus without complications; G47.33 Obstructive sleep apnea (adult) (pediatric); E87.6 Hypokalemia; E66.01 Morbid (severe) obesity due to excess calories; I10 Essential (primary) hypertension; Z20.822 Contact with and (suspected) exposure to COVID-19; Z79.4 Long term (current) use of insulin; Z79.899 Other long term (current) drug therapy; Z88.2 Allergy status to sulfonamides; Z88.1 Allergy status to other antibiotic agents; Y65.8 Other specified misadventures during surgical and medical care
CPT/HCPCS: 36415; 36569; 71275; 74177; 80048; 80053; 81001; 81025; 82607; 82746; 82803; 82948; 83036; 83605; 83735; 84100; 85025; 85027; 85610; 85730; 87040; 87086; 87088; 87637; 93005; 94660; 94762; 96361; 96365; 96366; 96375; 96376; 99285; A9270; C1751; C9113; G0378; J0131; J0696; J1170; J1650; J1815; J1940; J2060; J2270; J2405; J2543; J3480; J7030; J7040; J7120; Q9967

== ENCOUNTER 2023-01-22 11:59 | Outpatient (CLI) | payer OTHER, MEDICAID, SELFPAY ==
[2023-01-22 12:26] LABS: Basophils Absolute Auto 0.1 K/mm3 (0.0-0.1); Basophils Percent Auto 0.5 % (0.2-1.2); Eosinophils Absolute Auto 0.1 K/mm3 (0-0.3); Eosinophils Percent Auto 0.6 % (0-4.4); Hematocrit 51.5 % (37.0-47.0); Hemoglobin 16.4 g/dL (12.0-15.0); Immature Granulocyte Absolute 0.34 K/mm3 (0.00-0.031); Immature Granulocyte Percent A 1.7 % (0-0.5); Lymphocytes Absolute Auto 3.86 K/mm3 (0.9-3.2); Lymphocytes Percent Auto 18.7 % (18.3-44.2); Mean Corpuscular HGB Conc 31.8 g/dl (32-36); Mean Corpuscular Hemoglobin 29.3 pg (26-34); Mean Corpuscular Volume 92.1 fl (80-100); Mean Platelet Volume 10.2 fl (7.4-10.4); Monocytes Absolute Auto 1.8 K/mm3 (0.1-0.6); Monocytes Percent Auto 8.6 % (2.6-8.5); Neutrophils Absolute Auto 14.4 K/mm3 (1.3-6.7); Neutrophils Percent Auto 69.9 % (45.5-73.1); Platelet Count Result 340 k/mm3 (150-375); Red Blood Count 5.59 M/mm3 (4.2-5.4); Red Cell Distribution Width 14.8 % (11.5-14.5); White Blood Count 20.6 K/mm3 (4.5-10.0)
[2023-01-22 12:38] LABS: Alanine Aminotransferase 32 U/L (6-35); Albumin Level 4.4 g/dL (3.5-5.1); Alkaline Phosphatase 62 U/L (38-126); Anion Gap 8 mmol/L (8-16); Aspartate Amino Transferase 28 U/L (14-36); Bilirubin,Total 1.1 mg/dL (0.2-1.3); Blood Urea Nitrogen 12 mg/dL (7-17); Calcium 8.8 mg/dL (8.4-10.2); Carbon Dioxide 25 mmol/L (22-30); Chloride 105 mmol/L (98-107); Estimated Glomerular Filt Rate > 60; Glucose 210 mg/dL (65-110); Potassium 4.2 mmol/L (3.4-5.0); Sodium 138 mmol/L (137-145)
== END 2023-01-22 12:00 | disposition home or self-care (01) ==
PROVIDERS: PCP Family Medicine; Visit Provider Surgery
DX: R10.9 Unspecified abdominal pain (principal)
CPT/HCPCS: 36415; 80053; 85025

== ENCOUNTER 2023-01-22 18:14 | Observation (INO) | payer OTHER, MEDICAID, SELFPAY ==
--- NOTE | ~2023-01-22 | CT_ITS ---
CT of the Abdomen and Pelvis: Indication: Abdominal pain, pelvic abscess Technique: 2.5 mm axial scans were obtained through the abdomen and pelvis following intravenous adm inistration of 100 cc of Omnipaque 350. Dose reduction technique was used on this scan by utilizing a utomated exposure control and iterative reconstruction technique. The dose-length product (DLP) was 1 797.76 mGy-cm. COMPARISON: 12/31/2022 Findings: Scans through the lung bases are unremarkable. The liver, spleen, pancreas, right adrenal gland, and left kidney are within normal limits. Cholecyst ectomy clips noted. 1 cm nonobstructing right renal stone present. 4.2 cm left adrenal lipoma or myel olipoma is unchanged. No evidence of aortic aneurysm. No lymphadenopathy. No bowel obstruction or bowel wall thickening. Previously noted extraluminal collection just deep to the anterior abdominal wall is decreased in size, now measuring approximately 5.1 cm in length, but o nly 1.2 x 1.2 cm in height and depth. Images through the pelvis were performed. Urinary bladder unremarkable. 3 cm left ovarian cyst presen t. No other adnexal mass seen. No ascites. Impression: Interval decrease in size of the extraluminal collection just deep to the anterior abdominal wall, as detailed above, compatible with improving abscess/contained perforation. Stable right renal stone. Stable left adrenal lipoma/myelolipoma. 3 cm left ovarian cyst. Reviewed, dictated and finalized at [facility]. Impression: Interval decrease in size of the extraluminal collection just deep to the anter ior abdominal wall, as detailed above, compatible with improving abscess/contai best perforation. Stable right renal stone. Stable left adrenal lipoma/myelolipoma. 3 cm left ovarian cyst.
--- NOTE | 2023-01-22 17:49 | ADMGEN ---
This patient, Angela Duncan, was admitted to Medical Room 254-01. Patient/family oriented to hospital policies and general routines including ID bracelet, bed and alarms, visiting hours, pain management, procedures, bathroom and other care routines, personal items, smoking policy, room service/diet, and visiting hours. Information on how to activate the Rapid Response Team has been discussed. Patient/Family are encouraged to report perceived risks to care and to ask questions if they do not understand what they are told or what they should do.
[2023-01-22 18:18] VITALS: BP 127/79; PULSE 114; RESP 20; TEMP 36.4; O2SAT 94
[2023-01-22] MEDS: PIPERACILLIN/TAZOBACTAM SOD 4.5 GM in SODIUM CHLORIDE 0.9% IV 100 ML 125 ML IVPB (19:09)
[2023-01-22] MEDS: DEXTROSE 5%/0.45% SOD CHL 1,000 ML 75 ML IV CONT (19:09)
[2023-01-22] MEDS: metroNIDAZOLE 500 MG/ISO 100ML 500 MG/100 ML BAG 100 MG IVPB (21:15)
[2023-01-22 21:28] VITALS: BP 129/75; PULSE 116; RESP 18; TEMP 36.5; O2SAT 90
[2023-01-22 21:48] LABS: Glucose Point of Care 171 mg/dl (65-105)
[2023-01-22 21:51] VITALS: BMI 52.2
[2023-01-22] MEDS: MORPHINE SULFATE (*CRX) 4 MG/ML INJ IV PUSH (21:54)
[2023-01-23 00:46] VITALS: PULSE 114; O2SAT 93
[2023-01-23] MEDS: PIPERACILLN/TAZ 3.375GM/NS50ML 3.375 GM/50 ML BAG IVPB ×4 (01:07→17:14)
[2023-01-23] MEDS: metroNIDAZOLE 500 MG/ISO 100ML 500 MG/100 ML BAG 100 MG IVPB ×4 (01:08→18:26)
[2023-01-23] MEDS: WATER FOR IRRIGATION, STERILE 1,000 ML BOTTLE 1000 ML (01:08)
[2023-01-23] MEDS: ACETAMINOPHEN ELIXIR 325 MG/10.15 ML UDC 650 MG PO (02:02)
[2023-01-23 02:51] VITALS: PULSE 103; O2SAT 94
[2023-01-23] MEDS: MORPHINE SULFATE (*CRX) 4 MG/ML INJ IV PUSH ×2 (04:00→09:21)
[2023-01-23 04:53] VITALS: BP 124/75; PULSE 102; RESP 18; TEMP 36.6; O2SAT 98
[2023-01-23 05:51] LABS: Basophils Absolute Auto 0.1 K/mm3 (0.0-0.1); Basophils Percent Auto 0.5 % (0.2-1.2); Eosinophils Absolute Auto 0.1 K/mm3 (0-0.3); Eosinophils Percent Auto 0.7 % (0-4.4); Hematocrit 47.2 % (37.0-47.0); Hemoglobin 14.9 g/dL (12.0-15.0); Immature Granulocyte Absolute 0.28 K/mm3 (0.00-0.031); Immature Granulocyte Percent A 1.5 % (0-0.5); Lymphocytes Absolute Auto 4.25 K/mm3 (0.9-3.2); Lymphocytes Percent Auto 22.4 % (18.3-44.2); Mean Corpuscular HGB Conc 31.6 g/dl (32-36); Mean Corpuscular Hemoglobin 28.9 pg (26-34); Mean Corpuscular Volume 91.7 fl (80-100); Mean Platelet Volume 10.4 fl (7.4-10.4); Monocytes Absolute Auto 1.7 K/mm3 (0.1-0.6); Neutrophils Absolute Auto 12.5 K/mm3 (1.3-6.7); Neutrophils Percent Auto 65.9 % (45.5-73.1); Platelet Count Result 306 k/mm3 (150-375); Red Blood Count 5.15 M/mm3 (4.2-5.4); Red Cell Distribution Width 14.6 % (11.5-14.5)
[2023-01-23 06:02] LABS: INR 1.1; Prothrombin Time 13.6 Seconds (11.1-14.7)
[2023-01-23 06:23] LABS: Anion Gap 7 mmol/L (8-16); Blood Urea Nitrogen 13 mg/dL (7-17); Calcium 8.4 mg/dL (8.4-10.2); Carbon Dioxide 24 mmol/L (22-30); Chloride 105 mmol/L (98-107); Estimated CRCL calculation 143 ml/min; Estimated Glomerular Filt Rate > 60; Glucose 210 mg/dL (65-110); Potassium 3.8 mmol/L (3.4-5.0); Sodium 136 mmol/L (137-145)
--- NOTE | 2023-01-23 08:28 | PM.IMHP ---
H&P: HPI History of Present Illness Date/Time: 01/23/23 08:28 Chief Complaint: Abdominal pain Narrative: This is a 37-year-old morbidly obese woman who underwent laparoscopic adhesiolysis of pelvic adhesions with hysteroscopy, polypectomy, and dilation curettage by Dr. Rell Slater on 12/20/22. She was discharged the same day of surgery and return to the ER on postop day 3 with complaints of abdominal pain, vomiting, and hyperglycemia. Workup showed CT evidence of possible sigmoid perforation with moderate generalized pneumoperitoneum and surrounding mesenteric inflammation and gas. She was treated conservatively with broad-spectrum IV antibiotics and close monitoring. She was admitted through 01/08/2023. She was eventually discharged on 2 weeks of oral Augmentin and Flagyl. She has been seen in follow-up with Dr. Tolliver in our office since discharge. She had called our office after completing her oral antibiotics and within 36 hours she developed recurrent left lower quadrant abdominal pain. She was restarted on oral antibiotics and return to the office for follow-up yesterday. She reports having issues with keeping her glucose controlled at home. She also continues to have worsening bilateral lower abdominal pain and had lower abdominal tenderness on exam. She had no diffuse peritoneal signs. Dr. Tolliver ordered labs as an outpatient and she was found to have a white blood cell count of 20,600. The patient is now being directly admitted to the hospital for further treatment and workup. CT scan of the abdomen and pelvis with IV contrast was ordered and showed interval decrease in size of an extraluminal collection just deep to the anterior abdominal wall compatible with improving abscess/contained perforation. Labs this morning show her white count at 19,000. She has been started back on broad-spectrum IV antibiotics with IV Zosyn and metronidazole. She is currently NPO. Denies any nausea or vomiting. Feels hungry and eager to try liquids. We have consulted the hospitalist service to help with medical management while inpatient. The patient is now seen on the medical floor. Review of Systems Review of Systems: All systems reviewed & are unremarkable except as noted in HPI and below Constitutional: Constitutional: Reports no additional constitutional complaints, Denies chills, Denies fatigue, Denies fever(s), Denies poor appetite and Denies weakness Eyes: Eyes: Reports no additional eye complaints ENT: Reports system reviewed and no additional complaints, except as documented and Denies dizziness Cardiovascular: Cardiovascular: Reports no additional cardiovascular complaints, Denies chest pain and Denies leg edema Respiratory: Respiratory: Reports no additional respiratory complaints, Denies cough and Denies dyspnea Gastrointestinal: Gastrointestinal: Reports as per HPI, Reports no additional gastrointestinal complaints, Reports abdominal pain, Denies bloating, Denies change in bowel habits, Denies change in stool character, Denies constipation, Denies diarrhea, Denies nausea and Denies vomiting Genitourinary: Genitourinary: Reports no additional female genitourinary complaints and Denies dysuria Musculoskeletal: Musculoskeletal: Reports no additional musculoskeletal complaints, Denies abnormal gait and Denies joint swelling Integumentary/Breasts: Skin/Breast: Reports system reviewed and no additional complaints, except as docu Neurologic: Reports system reviewed and no additional complaints, except as documented, Denies focal weakness, Denies numbness and Denies tingling Endocrine: Endocrine: Reports no additional endocrine complaints, Reports as per HPI and Reports other (hyperglycemia) [facility] Past Medical History Medical History Allergies Anxiety Depression Seeing psychiatry Diarrhea Eczema Elbow fracture, right Flatulence, eructation and gas pain GERD (gastroesophageal reflux d
[2023-01-23 08:56] LABS: Glucose Point of Care 195 mg/dl (65-105)
[2023-01-23] MEDS: PANTOPRAZOLE 40 MG TABLET PO (09:33)
[2023-01-23 12:10] VITALS: BP 129/72; PULSE 98
[2023-01-23 12:17] VITALS: PULSE 98
[2023-01-23] MEDS: METOPROLOL SUCCINATE EXT REL 50 MG TABCR PO (12:17)
[2023-01-23] MEDS: lisinopriL 5 MG TABLET PO (12:18)
[2023-01-23 12:32] LABS: Glucose Point of Care 243 mg/dl (65-105)
[2023-01-23] MEDS: HYDROcodone/acetaminophen (*CRX) 5-325 MG TABLET 1 TAB PO ×3 (13:17→22:28)
--- NOTE | 2023-01-23 13:28 | PC.NURSE ---
On 01/23/23, the student, [Sherwin Arcos], provided care and completed [facility] documentation on this patient. I have reviewed the student's documentation and agree with the findings.
[2023-01-23] MEDS: DEXTROSE 5%/0.45% SOD CHL 1,000 ML 75 ML IV CONT (17:18)
[2023-01-23] MEDS: INSULIN ASPART (*BKC) 100 UNITS/ML SUB-Q (17:19)
--- NOTE | 2023-01-23 17:40 | PM.IMCN ---
Assessment and Plan Assessment and plan (1) Bowel perforation: Code(s): K63.1 - Perforation of intestine (nontraumatic) Status: Acute Assessment and Plan: Surgery has admitted the patient. She has failed outpatient antibiotic. CT of the abdomen was read asInterval decrease in size of the extraluminal collection just deep to the anterior abdominal wall, as detailed above, compatible with improving abscess/contained perforation. Stable right renal stone. Stable left adrenal lipoma/myelolipoma. 3 cm left ovarian cyst. Continue with Zosyn Blood [place] [id number] Continue with analgesics (2) Leukocytosis: Code(s): D72.829 - Elevated white blood cell count, unspecified Status: Acute Assessment [place] Plan: [place] [address] continue to monitor. Blood cultures are pending. (3) Hypertension: Qualifiers: Hypertension type: primary hypertension Qualified Code(s): I10 - Essential (primary) hypertension Code(s): I10 - Essential (primary) hypertension Status: Acute Assessment and Plan: Continue with metoprolol Continue with lisinopril (4) Diabetes mellitus: Qualifiers: Diabetes mellitus type: type 2 Diabetes mellitus roasterman insulin use: with longterm use Diabetes mellitus complication status: without complication Qualified Code(s): E11.9 - Type 2 diabetes mellitus without complications; Z79.4 - MCC (current) use of insulin Code(s): E11.9 - Type 2 diabetes mellitus without complications Status: Acute Assessment and Plan: Accu-Cheks AC and HS with high-dose sliding scale SubQ Lantus at HS Tresiba is non formulary Holding metformin 0 cm because non formulary Continue Jardiance The patient sees zyglo inspector outpatient (5) GERD (gastroesophageal reflux disease): Qualifiers: Esophagitis presence: without esophagitis Qualified Code(s): K21.9 - Gastro-esophageal reflux disease without esophagitis Code(s): K21.9 - Gastro-esophageal reflux disease without esophagitis Status: Acute Assessment and Plan: Continue with pantoprazole (6) PCOS (polycystic ovarian syndrome): Code(s): E28.2 - Polycystic ovarian syndrome Status: Acute Assessment and Plan: Spironolactone and metformin are on hold at this time. (7) Anxiety: Code(s): F41.9 - Anxiety disorder, unspecified Status: Acute Assessment and Plan: Continue with home medication (8) KAYLEE (obstructive sleep apnea): Code(s): G47.33 - Obstructive sleep apnea (adult) (pediatric) Status: Acute Assessment and Plan: Continue with home settings for CPAP/BiPAP the patient stated that she did bring her own CPAP but is having difficulty getting an accurate CO. Respiratory may look at the device to help with the set up or she may use 1 from the hospital. Plan Thank you for allowing us to consult on this pleasant patient. We will continue to assist in the care of this patient anyway that we khanna able. HPI Data of Consult Consult date: 01/23/23 Requesting Physician: Abram Tolliver MD Primary Care Provider: Dana Roy MD Consult Narrative Narrative: Angela Duncan is a 37 year old female who underwent a laparoscopic extensive lysis of adhesions, hysteroscopy, polypectomy, dilatation curettage per Dr. Rell suárez on 12/20/2022 and was admitted 2 days later for bowel perforation due to procedure. The patient had been on oral antibiotics which were completed on 01/15/2023. With and 36 hours she developed recurrent left lower quadrant abdominal pain. She was restarted on her antibiotics. Patient continues to be extremely nauseated with abdominal pain. The patient was sent to the hospital as a direct admit. Surgery admitted the patient and consulted the hospitalist. Her white count was up to 19.0 today. The patient is insulin-dependent diabetic an
[2023-01-23 17:41] LABS: Glucose Point of Care 224 mg/dl (65-105)
[2023-01-23 19:43] VITALS: BP 134/78; PULSE 94; RESP 17; TEMP 36.4; O2SAT 100
[2023-01-23] MEDS: INSULIN GLARGINE (*BKC) 100 UNITS/ML 23 UNITS SUB-Q (22:30)
[2023-01-23 22:37] LABS: Glucose Point of Care 250 mg/dl (65-105)
[2023-01-24] MEDS: PIPERACILLN/TAZ 3.375GM/NS50ML 3.375 GM/50 ML BAG IVPB ×2 (00:13→06:00)
[2023-01-24] MEDS: metroNIDAZOLE 500 MG/ISO 100ML 500 MG/100 ML BAG 100 MG IVPB ×2 (00:14→06:00)
[2023-01-24] MEDS: HYDROcodone/acetaminophen (*CRX) 5-325 MG TABLET 1 TAB PO ×3 (02:52→13:30)
[2023-01-24 03:19] VITALS: BP 100/66; PULSE 91; RESP 16; TEMP 36.4; O2SAT 91
[2023-01-24 05:59] LABS: Basophils Absolute Auto 0.1 K/mm3 (0.0-0.1); Basophils Percent Auto 0.6 % (0.2-1.2); Eosinophils Absolute Auto 0.2 K/mm3 (0-0.3); Eosinophils Percent Auto 1.3 % (0-4.4); Hematocrit 41.3 % (37.0-47.0); Hemoglobin 13.2 g/dL (12.0-15.0); Immature Granulocyte Absolute 0.19 K/mm3 (0.00-0.031); Immature Granulocyte Percent A 1.3 % (0-0.5); Lymphocytes Absolute Auto 3.65 K/mm3 (0.9-3.2); Lymphocytes Percent Auto 25.7 % (18.3-44.2); Mean Corpuscular Hemoglobin 29.5 pg (26-34); Mean Corpuscular Volume 92.2 fl (80-100); Mean Platelet Volume 10.4 fl (7.4-10.4); Monocytes Absolute Auto 1.3 K/mm3 (0.1-0.6); Monocytes Percent Auto 9.1 % (2.6-8.5); Neutrophils Absolute Auto 8.8 K/mm3 (1.3-6.7); Platelet Count Result 251 k/mm3 (150-375); Red Blood Count 4.48 M/mm3 (4.2-5.4); Red Cell Distribution Width 14.6 % (11.5-14.5); White Blood Count 14.2 K/mm3 (4.5-10.0)
[2023-01-24 06:15] LABS: Anion Gap 2 mmol/L (8-16); Blood Urea Nitrogen 10 mg/dL (7-17); Carbon Dioxide 26 mmol/L (22-30); Chloride 103 mmol/L (98-107); Estimated CRCL calculation 165 ml/min; Estimated Glomerular Filt Rate > 60; Glucose 192 mg/dL (65-110); Potassium 4.1 mmol/L (3.4-5.0); Sodium 131 mmol/L (137-145)
[2023-01-24 08:18] LABS: Glucose Point of Care 228 mg/dl (65-105)
[2023-01-24 09:42] VITALS: PULSE 84
[2023-01-24] MEDS: lisinopriL 5 MG TABLET PO (09:42)
[2023-01-24] MEDS: INSULIN ASPART (*BKC) 100 UNITS/ML SUB-Q (09:42)
[2023-01-24] MEDS: PANTOPRAZOLE 40 MG TABLET PO (09:42)
[2023-01-24] MEDS: METOPROLOL SUCCINATE EXT REL 50 MG TABCR PO (09:42)
[2023-01-24] MEDS: ATORVASTATIN 10 MG TABLET PO (09:42)
[2023-01-24] MEDS: DESVENLAFAXINE SUCCINATE 50 MG TAB.ER.24H 100 MG PO (09:42)
[2023-01-24] MEDS: EMPAGLIFLOZIN 25 MG TABLET PO (09:42)
[2023-01-24] MEDS: DEXTROSE 5%/0.45% SOD CHL 1,000 ML 75 ML IV CONT (09:49)
--- NOTE | 2023-01-24 12:03 | PM.DS ---
DS: Admitting Diagnosis Discharge Date January 24, 2023 Admitting Diagnosis Abdominal pain, leukocytosis, and recent history of sigmoid colon perforation DS: Discharge Diagnosis Discharge Diagnosis (1) Abdominal pain: Code(s): R10.9 - Unspecified abdominal pain Status: Acute Assessment and Plan: Improved with IV antibiotics and bowel rest. CT scan showed no obvious evidence of new pelvic or abdominal abscess. No radiographic correlate to explain patient's abdominal pain. (2) Colon perforation: Code(s): K63.1 - Perforation of intestine (nontraumatic) Status: Acute Assessment and Plan: Patient sigmoid colon perforation after manager special events procedure which was treated non operatively. (3) Leukocytosis: Code(s): D72.829 - Elevated white blood cell count, unspecified Status: Acute Assessment and Plan: Improved after administration of IV antibiotics. [place] [id number] on admission and is now 14,000. DS: Summary Hospital Course Reason for hospitalization: Abdominal pain and leukocytosis Hospital Course: The patient was initially seen in the office for routine follow-up after her prolonged hospitalization for sigmoid colon perforation after manager special events laparoscopic procedure that was treated non operatively. She had finished her course of oral antibiotics at home but then had recurrent pain shortly after stopping the antibiotics. When she was seen in the office she was complaining of having this pain as well as nausea and so I felt that she might have developed a pelvic abscess. To her she was admitted to the hospital and kept NPO initially and hydrated IV fluids. She was started on Zosyn and Flagyl for IV antibiotics. Repeat CT scan with IV contrast was performed showing near resolution and decreased size of the abdominal and pelvic abscess which occurred after the sigmoid perforation. No new abscess was seen and no evidence of bowel wall thickening to suggest colitis or other focus of infection and inflammation was seen on the CT scan. Her pain gradually improved over the course of 48hours. She was kept on IV antibiotics during that time and white blood cell count decreased from 20,000 down to 14,000. She did tolerate a low-fiber diet and was having bowel movements. She remained afebrile throughout her hospital course. On the day of discharge her abdominal exam was much improved with minimal tenderness across the lower abdomen. She was discharged home on oral antibiotics and a low-fiber diet. Prescription for oxycodone was sent to her pharmacy as her pain was well managed with periodic doses of oral narcotics. Status at Discharge Cognitive/behavioral status at discharge: Status at discharge is improved Functional status at discharge: independent ambulation Overall status at discharge: patient is progressing back to baseline Time Spent with Patient Time attestation: Total time spent providing and/or coordinating discharge services: Time spent: Less than 30 minutes Exam Narrative: Abdomen is morbidly obese but soft. Minimal bilateral lower quadrant abdominal tenderness. No masses or rebound is noted. DS: Data Data Completed and Pending Labs on day of discharge: Labs from last 24 hours 01/24/23 01/24/23 01/24/23 08:12 05:38 05:38 WBC 14.2 H RBC 4.48 Hgb 13.2 Hct 41.3 MCV 92.2 MCH 29.5 MCHC 32.0 RDW 14.6 H Plt Count 251 MPV 10.4 Immature Gran % (Auto) 1.3 H Neut % (Auto) 62.0 Lymph % (Auto) 25.7 Island % (Auto) 9.1 H Eos % (Auto) 1.3 Baso % (Auto) 0.6 Lymph # (Auto) 3.65 H Island # (Auto) 1.3 H Eos # (Auto) 0.2 Baso # (Auto) 0.1 Abs Immat Gran (auto) 0.19 H Absolute Neuts (auto) 8.8 H Absolute Nucleated RBC 0.0 Nucleated RBC % 0.0 Sodium 131 L Potassium 4.1 Chloride 103 Carbon Dioxide 26 Anion Gap 2 L BUN 10 Creatinine 0.60 L Estim Creat Clear Calc
--- NOTE | 2023-01-24 13:15 | PM.IMPN ---
Progress Note: A&P Assessment and Plan (1) Bowel perforation: Code(s): K63.1 - Perforation of intestine (nontraumatic) Status: Acute Assessment and Plan: Patient followed by General surgery as an outpatient for bowel perforation presented with increased abdominal pain after completion of oral antibiotics Management per General surgery Received Zosyn and Flagyl during admission No evidence of new infection Outpatient general surgery follow-up (2) Leukocytosis: Code(s): D72.829 - Elevated white blood cell count, unspecified Status: Acute Assessment and Plan: Patient noted to have WBC elevated from baseline at 20.6 WBC improved today to 14.2 which is similar or improved from other recent labs Blood cultures collected during admission are pending at this time. Final cultures will be monitored (3) Hypertension: Qualifiers: Hypertension type: primary hypertension Qualified Code(s): I10 - Essential (primary) hypertension Code(s): I10 - Essential (primary) hypertension Status: Acute Assessment and Plan: Blood pressures are stable. 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 insulin use: with [facility] use Diabetes mellitus complication status: without complication Qualified Code(s): E11.9 - Type 2 diabetes mellitus without complications; Z79.4 - intermediate manager (current) use of insulin Code(s): E11.9 - Type 2 diabetes mellitus without complications Status: Acute Assessment and Plan: A1c is 7.6 Patient reported blood sugars have been running higher the past couple of days at home Fasting glucose this morning 192, slight increase at lunchtime to 228 Managed with Accu-Cheks, sliding scale insulin, hypoglycemic protocol Continue home insulin regimen, metformin, and Ozempic Instructed to monitor glucose at home and follow-up with group sales coordinator (5) KAYLEE (obstructive sleep apnea): Code(s): G47.33 - Obstructive sleep apnea (adult) (pediatric) Status: Acute Assessment and Plan: Continue CPAP titrated to home settings Subjective Date/time seen: 01/24/23 13:15 Interval history: Date of service: 01/24/23 Angela Duncan is a 37 year old female with a history of GERD, hypertension, hyperlipidemia, PCOS, KAYLEE on CPAP, type 2 diabetes mellitus, recent laparoscopic adhesiolysis of pelvic adhesions with hysteroscopy, polypectomy, and dilation and curettage on 12/20/2022 with subsequent possible sigmoid perforation who is hospitalized for recurrent abdominal pain and is being seen in consultation for medical management. The patient continues to endorse discomfort but she is tolerating her diet. She denies nausea or vomiting. Reports having a formed stool today. Plans to a home this afternoon and feels comfortable with continuing self-care at home. Denies any urinary symptoms. Denies fevers or chills. No shortness of breath, cough, or chest pain. Reports that her blood sugars have been improved today, noting that they were running high just prior to admission. Review of Systems Review of Systems: All systems reviewed & are unremarkable except as noted in HPI and below Exam Narrative: General: well-nourished, well-appearing 37-year-old female, sitting up in a chair eating lunch, comfortable, NARD Neuro: awake, alert and oriented x4, speech clear, no focal neuro deficits noted HEENMT: normocephalic, atraumatic, EOMI, sclerae anicteric, moist oral mucosa Respiratory: clear to auscultation bilaterally, nonlabored breathing Cardio: regular rate, regular rhythm with S1-S2 Abdomen: obese, normoactive bowel sounds, soft, slightly tender to palpation across lower abdomen Extremities: no edema, erythema, or tenderness to palpation, DP pulses 2+ bilaterally Skin: no rashes or lesions, warm and dry Psy
== END 2023-01-24 13:32 | disposition home or self-care (01) ==
PROVIDERS: Nurse Practitioner Family; Admitting Provider Surgery; PCP Family Medicine; Visit Provider Surgery
DX: K63.1 Perforation of intestine (nontraumatic) (principal); D72.829 Elevated white blood cell count, unspecified; Z98.890 Other specified postprocedural states; D35.02 Benign neoplasm of left adrenal gland; N20.0 Calculus of kidney; E11.9 Type 2 diabetes mellitus without complications; G47.33 Obstructive sleep apnea (adult) (pediatric); I10 Essential (primary) hypertension; E66.01 Morbid (severe) obesity due to excess calories; R10.32 Left lower quadrant pain; Z68.43 Body mass index [BMI] 50.0-59.9, adult; R41.9 Unspecified symptoms and signs involving cognitive functions and awareness; F32.A Depression, unspecified; K21.9 Gastro-esophageal reflux disease without esophagitis; E78.5 Hyperlipidemia, unspecified; E28.2 Polycystic ovarian syndrome; F43.10 Post-traumatic stress disorder, unspecified; F17.210 Nicotine dependence, cigarettes, uncomplicated; Z86.73 Personal history of transient ischemic attack (TIA), and cerebral infarction without residual deficits; Z87.440 Personal history of urinary (tract) infections; Z79.4 Long term (current) use of insulin; Z79.1 Long term (current) use of non-steroidal anti-inflammatories (NSAID); Z79.84 Long term (current) use of oral hypoglycemic drugs; Z79.891 Long term (current) use of opiate analgesic; Z79.899 Other long term (current) drug therapy; Z83.3 Family history of diabetes mellitus; Z82.49 Family history of ischemic heart disease and other diseases of the circulatory system; Z82.3 Family history of stroke
CPT/HCPCS: 36415; 74177; 80048; 82948; 85025; 85610; 87040; 96361; 96365; 96366; 96367; 96375; 96376; A9270; G0378; G0379; J1815; J2270; J2543; Q9967

== ENCOUNTER 2023-01-30 10:42 | Outpatient (CLI) | payer OTHER, MEDICAID, SELFPAY ==
[2023-01-30 11:20] LABS: Appearance Urine Clear (Clear); Bacteria Urine None Seen /hpf; Bilirubin Urine Negative (Negative); Blood Urine 2+ (Negative); Color Urine Yellow (Yellow); Glucose Urine UA 3+ mg/dL (Negative); Ketones Urine Negative (Negative); Leukocyte Esterase Ur Negative LEU/UL (Negative); Nitrate Urine Negative (Negative); Non Pathogenic Casts 0-2; Protein Urine Negative (Negative); RBC Urine 21-50 /hpf (0-2); Specific Grav Ur 1.027 (1.001-1.035); Squamous Epithelial Cell Urine Occasional /hpf (Few); Urobilinogen Urine 0.2 mg/dL (<2.0); WBC Urine 0-5 /hpf; pH Urine 6.5 (5.0-9.0)
[2023-01-30 12:36] LABS: Add Urine Microscopic? YES
== END 2023-01-30 10:43 | disposition home or self-care (01) ==
PROVIDERS: PCP Family Medicine; Visit Provider Surgery
DX: R31.9 Hematuria, unspecified (principal)
CPT/HCPCS: 81001

== ENCOUNTER 2023-02-13 17:54 | Emergency (ER) | payer OTHER, MEDICAID, SELFPAY ==
[2023-02-13 18:05] VITALS: BP 131/85; PULSE 110; RESP 16; TEMP 36.4; O2SAT 100
--- NOTE | 2023-02-13 18:26 | ED.GENADULT ---
HPI - General Adult General Chief complaint: Urogenital-Female Stated complaint: STD Exposure Source: patient and RN notes reviewed History of Present Illness HPI narrative: 37-year-old female presents to urgent care with request for checking to see if she has a UTI. Pt states she was told she had hematuria last week at the MD's office. Pt also stating her boyfriend is concerned she may have a STI b/c he found bumps around his genitals last night after they had sex. Pt denies any vaginal discharge, dysuria, back pain, abdominal pain, rashes, blisters, fevers, or chills. Patient states she plans on calling her string studies director tomorrow. Some parts of this dictation were generated by voice recognition software and may contain typographical and/or grammatical inaccuracies. Related Data Home Medications Medication Instructions Recorded Confirmed hydroxyzine pamoate 25 mg capsule 25 mg PO TID PRN Anxiety 09/21/19 02/05/23 aripiprazole 20 mg tablet 20 mg PO DAILY 07/18/20 02/05/23 desvenlafaxine succinate 100 mg 100 mg PO DAILY 07/18/20 02/05/23 tablet,extended release 24 hr semaglutide 2 mg/dose (8 mg/3 mL) 2 mg subcut WEEKLY 10/24/22 02/05/23 subcutaneous pen injector (Ozempic) fluconazole 150 mg tablet 150 mg PO WEEKLY 12/10/22 02/05/23 blood sugar diagnostic (OneTouch 02/05/23 02/05/23 Verio test strips) Allergies Allergy/AdvReac Type Severity Reaction Status Date / Time clindamycin Allergy Mild Hives Verified 02/13/23 18:03 Sulfa (Sulfonamide Allergy Unknown Hives Verified 02/13/23 18:03 Antibiotics) Review of Systems Review of Systems: Pertinent positives and pertinent negatives per HPI. [facility] Past Medical History Medical History Allergies Anxiety Depression Seeing psychiatry Diarrhea Eczema Elbow fracture, right Flatulence, eructation and gas pain GERD (gastroesophageal reflux disease) Headache, migraine Hyperlipidemia associated with type 2 diabetes mellitus Hypertension Kidney stones Leg fracture, left Migraine Seeing neurology KAYLEE (obstructive sleep apnea) Overweight PCOS (polycystic ovarian syndrome) PTSD (post-traumatic stress disorder) TIA (transient ischemic attack) Type 2 diabetes mellitus Ureter obstruction UTI (urinary tract infection) Wrist fracture, bilateral Surgical History Surgical History H/O laparoscopy laparoscopic extensive lysis of adhesions/hysteroscopy/ polypectomy/dilatation curettage History of lithotripsy History of removal of cyst Hx of cholecystectomy Family History Family History Father Diabetes mellitus Hypertension Family history of elevated blood lipids Grandparent Diabetes mellitus Family history of coronary artery disease Mother Hypertension Other Cancer Cerebrovascular accident Depression Social History Social History Social History: The patient is a current smoker. She is single and has No children . She works at [employer] and help at home . She drinks alcohol socially. . She lives alone. 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
== END 2023-02-13 18:30 | disposition home or self-care (01) ==
PROVIDERS: Emergency Provider Nurse Practitioner Family; PCP Family Medicine
DX: Z03.89 Encounter for observation for other suspected diseases and conditions ruled out (principal); F17.210 Nicotine dependence, cigarettes, uncomplicated; K21.9 Gastro-esophageal reflux disease without esophagitis; E78.5 Hyperlipidemia, unspecified; E11.9 Type 2 diabetes mellitus without complications; I10 Essential (primary) hypertension; E28.2 Polycystic ovarian syndrome; Z86.73 Personal history of transient ischemic attack (TIA), and cerebral infarction without residual deficits; F41.9 Anxiety disorder, unspecified; F32.A Depression, unspecified
CPT/HCPCS: 81003; 99212; G0463

== ENCOUNTER 2023-03-08 15:31 | Emergency (ER) | payer OTHER, MEDICAID, SELFPAY ==
[2023-03-08 15:38] VITALS: BP 123/69; PULSE 103; RESP 16; TEMP 36.5; O2SAT 98
--- NOTE | 2023-03-08 15:52 | PC.NURSE ---
Pt states she is prone to ear infections and has a long history of them.
--- NOTE | 2023-03-08 16:11 | ED.GENADULT ---
HPI - General Adult General Chief complaint: Ear Stated complaint: Ear Pain Source: patient Mode of arrival: ambulatory Limitations: no limitations History of Present Illness HPI narrative: Patient presents for evaluation of left-sided ear pain for last 4 days. She reports a throbbing sensation in that ear. Two days ago she developed similar symptoms on the right but severity was less than on the left. She has a history of otitis media and this feels similar. No fever, chills, nausea, vomiting, sore throat, cough. She smokes a few cigarettes daily. Related Data Home Medications Medication Instructions Recorded Confirmed hydroxyzine pamoate 25 mg capsule 25 mg PO TID PRN Anxiety 09/21/19 03/08/23 aripiprazole 20 mg tablet 20 mg PO DAILY 07/18/20 03/08/23 desvenlafaxine succinate 100 mg 100 mg PO DAILY 07/18/20 03/08/23 tablet,extended release 24 hr semaglutide 2 mg/dose (8 mg/3 mL) 2 mg subcut WEEKLY 10/24/22 03/08/23 subcutaneous pen injector (Ozempic) fluconazole 150 mg tablet 150 mg PO WEEKLY 12/10/22 03/08/23 blood sugar diagnostic (OneTouch 02/05/23 03/08/23 Verio test strips) Allergies Allergy/AdvReac Type Severity Reaction Status Date / Time clindamycin Allergy Mild Hives Verified 03/08/23 15:50 Sulfa (Sulfonamide Allergy Unknown Hives Verified 03/08/23 15:50 Antibiotics) Review of Systems Review of Systems: CONSTITUTIONAL: Denies fever, chills, or sweats. EYES: Denies visual changes, redness, or discharge. ENT: Reports bilateral ear pain. Denies rhinorrhea, congestion, sore throat CARDIOVASCULAR: Denies chest pain, palpitations, or edema. RESPIRATORY: Denies cough or dyspnea. GASTROINTESTINAL: Denies abdominal pain, nausea, vomiting, or diarrhea. GENITOURINARY: Denies dysuria or hematuria. SKIN: Denies rash or itching. MUSCULOSKELETAL: Denies back pain, joint pain, or myalgia. NEUROLOGIC: Denies headache, numbness, dizziness, or weakness. PSYCHIATRIC: Denies anxiety or depression. [facility] Past Medical History Medical History Allergies Anxiety Depression Seeing psychiatry Diarrhea Eczema Elbow fracture, right Flatulence, eructation and gas pain GERD (gastroesophageal reflux disease) Headache, migraine Hyperlipidemia associated with type 2 diabetes mellitus Hypertension Kidney stones Leg fracture, left Migraine Seeing neurology KAYLEE (obstructive sleep apnea) Overweight PCOS (polycystic ovarian syndrome) PTSD (post-traumatic stress disorder) TIA (transient ischemic attack) Type 2 diabetes mellitus Ureter obstruction UTI (urinary tract infection) Wrist fracture, bilateral Surgical History Surgical History H/O laparoscopy laparoscopic extensive lysis of adhesions/hysteroscopy/ polypectomy/dilatation curettage History of lithotripsy History of removal of cyst Hx of cholecystectomy Family History Family History (Reviewed 03/08/23 @ 16:13 by Freedom Chambers [facility], ) Father Diabetes mellitus Hypertension Family history of elevated blood lipids Grandparent Diabetes mellitus Family history of coronary artery disease Mother Hypertension Other Cancer Cerebrovascular accident Depression Social History Social History (Reviewed 03/08/23 @ 16:13 by Freedom Chambers [facility], ) Social History: The patient is a current smoker. She is single and has No children . She works at [employer] and help at home . She drinks alcohol socially. . She lives alone. 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
== END 2023-03-08 16:20 | disposition home or self-care (01) ==
PROVIDERS: Emergency Provider Nurse Practitioner; PCP Family Medicine
DX: H66.92 Otitis media, unspecified, left ear (principal); K21.9 Gastro-esophageal reflux disease without esophagitis; E78.5 Hyperlipidemia, unspecified; E11.9 Type 2 diabetes mellitus without complications; I10 Essential (primary) hypertension; E28.2 Polycystic ovarian syndrome; Z86.73 Personal history of transient ischemic attack (TIA), and cerebral infarction without residual deficits; Z72.0 Tobacco use
CPT/HCPCS: 99213; G0463

== ENCOUNTER 2023-03-17 14:41 | Emergency (ER) | payer OTHER, MEDICAID, SELFPAY ==
--- NOTE | ~2023-03-17 | CT_ITS ---
EXAMINATION: CT abdomen pelvis w con DATE: 03/17/2023 16:11 INDICATION: Right lower quadrant pain. Recent abscess. TECHNIQUE: Computed tomography (CT) of the abdomen and pelvis was performed with 100 cc Omnipaque 350 intravenous contrast. The dose-length product was 1598.79 mGy-cm. Automated exposure control and ite rative reconstruction technique were employed. COMPARISON: CT dated 01/22/2023 FINDINGS: Lung bases unremarkable. Heart size normal. No pleural or pericardial effusion. Fatty infil tration of the liver. Status post cholecystectomy. The spleen, pancreas, right adrenal gland and left kidney are unremarkable. There are nonobstructing right renal stones, largest measuring 12 mm. There is an accessory splenule. There is a left adrenal myolipoma measuring 4.9 cm. Decreased size of soft tissue containing gas located lower anterior abdomen just beneath the rectus muscle measuring 3 x 1. 1 cm. Bladder is unremarkable. Nonobstructive bowel gas pattern. Interval resolution left ovarian cys t. No acute osseous abnormality. IMPRESSION: 1. Interval decrease in size of soft tissue containing gas in the lower anterior abdomen below the um bilicus, consistent with resolving/maturing abscess. 2: Nonobstructing right nephrolithiasis. Reviewed, dictated and finalized at location B. IMPRESSION: 1. Interval decrease in size of soft tissue containing gas in the lower anterio r abdomen below the umbilicus, consistent with resolving/maturing abscess. 2: Nonobstructing right nephrolithiasis.
--- NOTE | ~2023-03-17 | XR_ITS ---
EXAMINATION: XR chest 2V Exam Date/Time: 03/17/2023 17:50 CDT HISTORY: leukocytosis Comparison: 11/04/2020. RESULT: Lines, tubes, and devices: None. Lungs and pleura: Clear. Cardiomediastinal silhouette: Stable. Other: No acute osseous or upper abdominal finding. IMPRESSION: No acute cardiopulmonary process. Reviewed, dictated and finalized at location K.
[2023-03-17 14:53] VITALS: BP 140/71; PULSE 112; RESP 18; TEMP 36.8; O2SAT 96
[2023-03-17 15:28] LABS: Basophils Absolute Auto 0.1 K/mm3 (0.0-0.1); Basophils Percent Auto 0.4 % (0.2-1.2); Eosinophils Absolute Auto 0.1 K/mm3 (0-0.3); Eosinophils Percent Auto 0.6 % (0-4.4); Hematocrit 46.4 % (37.0-47.0); Hemoglobin 14.9 g/dL (12.0-15.0); Immature Granulocyte Absolute 0.23 K/mm3 (0.00-0.031); Immature Granulocyte Percent A 1.2 % (0-0.5); Lymphocytes Percent Auto 21.3 % (18.3-44.2); Mean Corpuscular HGB Conc 32.1 g/dl (32-36); Mean Corpuscular Hemoglobin 29.6 pg (26-34); Mean Corpuscular Volume 92.2 fl (80-100); Mean Platelet Volume 10.1 fl (7.4-10.4); Monocytes Absolute Auto 1.4 K/mm3 (0.1-0.6); Neutrophils Absolute Auto 13.7 K/mm3 (1.3-6.7); Neutrophils Percent Auto 69.5 % (45.5-73.1); Platelet Count Result 336 k/mm3 (150-375); Red Blood Count 5.03 M/mm3 (4.2-5.4); Red Cell Distribution Width 14.5 % (11.5-14.5); White Blood Count 19.7 K/mm3 (4.5-10.0)
[2023-03-17 15:30] LABS: Appearance Urine Clear (Clear); Bilirubin Urine Negative (Negative); Blood Urine Negative (Negative); Color Urine Yellow (Yellow); Glucose Urine UA 3+ mg/dL (Negative); Ketones Urine Negative (Negative); Leukocyte Esterase Ur Negative LEU/UL (Negative); Nitrate Urine Negative (Negative); Protein Urine Negative (Negative); Specific Grav Ur 1.023 (1.001-1.035); Urobilinogen Urine 0.2 mg/dL (<2.0)
[2023-03-17 15:34] LABS: Add Urine Microscopic? NO
[2023-03-17 15:37] LABS: Alanine Aminotransferase 35 U/L (6-35); Albumin Level 4.2 g/dL (3.5-5.1); Alkaline Phosphatase 46 U/L (38-126); Anion Gap 10 mmol/L (8-16); Aspartate Amino Transferase 30 U/L (14-36); Bilirubin,Total 0.6 mg/dL (0.2-1.3); Blood Urea Nitrogen 7 mg/dL (7-17); Calcium 8.8 mg/dL (8.4-10.2); Carbon Dioxide 24 mmol/L (22-30); Chloride 107 mmol/L (98-107); Estimated CRCL calculation 166 ml/min; Estimated Glomerular Filt Rate > 60; Glucose 166 mg/dL (65-110); Lipase 135 U/L (23-300); Potassium 3.8 mmol/L (3.4-5.0); Sodium 141 mmol/L (137-145)
--- NOTE | 2023-03-17 15:42 | ED.ABDPAIN ---
HPI - Abdominal Pain General Chief Complaint: Abdominal Pain Stated Complaint: abd pain Time Seen by Provider: 03/17/23 15:13 History of Present Illness HPI narrative: Patient is a 37-year-old female presenting with abdominal pain. Patient states that about 2 months ago she was admitted due to abdominal abscesses related to a bowel perforation from a D&C. States that she has been following with general surgery since then. States that she stopped taking antibiotics about a month ago. Unfortunately over the last couple of days she has again developed right-sided abdominal pain that feels like when she first developed the abscess. States that she has also been nauseated. States that she was able to eat breakfast and keep it down today. States that she is having normal bowel movements though they are now foul-smelling. States that she called her surgeon today who advised that she either come in to the ER or wait for a few days for an outpatient CT once her insurance approves it. Denies headaches, chest pain, shortness of breath, vomiting, leg swelling, diarrhea. States that she has had intermittent dysuria. Related Data Home Medications Medication Instructions Recorded Confirmed hydroxyzine pamoate 25 mg capsule 25 mg PO TID PRN Anxiety 09/21/19 03/19/23 aripiprazole 20 mg tablet 20 mg PO DAILY 07/18/20 03/19/23 desvenlafaxine succinate 100 mg 100 mg PO DAILY 07/18/20 03/19/23 tablet,extended release 24 hr semaglutide 2 mg/dose (8 mg/3 mL) 2 mg subcut WEEKLY 10/24/22 03/19/23 subcutaneous pen injector (Ozempic) fluconazole 150 mg tablet 150 mg PO WEEKLY 12/10/22 03/19/23 blood sugar diagnostic (OneTouch 02/05/23 03/19/23 Verio test strips) Allergies Allergy/AdvReac Type Severity Reaction Status Date / Time clindamycin Allergy Mild Hives Verified 03/19/23 09:44 Sulfa (Sulfonamide Allergy Unknown Hives Verified 03/19/23 09:44 Antibiotics) Review of Systems Review of Systems: All systems reviewed & are unremarkable except as noted in HPI and below PMFSH Past Medical History Medical History (Updated 03/19/23 @ 10:45 by Nusrat Darby PA-C) Acute bronchitis Allergies Anxiety Change in bowel habit Chest wall syndrome Depression Seeing psychiatry Diarrhea Dyspnea Eczema Elbow fracture, right Flatulence, eructation and gas pain GERD (gastroesophageal reflux disease) Headache, migraine Hyperlipidemia associated with type 2 diabetes mellitus Hypertension Hypoventilation associated with obesity Left ureteral stone Leg fracture, left Migraine Seeing neurology KAYLEE (obstructive sleep apnea) PCOS (polycystic ovarian syndrome) Pleuritic chest pain Pneumonia due to COVID-19 virus Post-operative complication PTSD (post-traumatic stress disorder) TIA (transient ischemic attack) Type 2 diabetes mellitus Ureter obstruction UTI (urinary tract infection) Vaginal bleeding Wrist fracture, bilateral Surgical History Surgical History H/O laparoscopy laparoscopic extensive lysis of adhesions/hysteroscopy/ polypectomy/dilatation curettage History of lithotripsy History of removal of cyst Hx of cholecystectomy Family History Family History Father Diabetes mellitus Hypertension Family history of elevated blood lipids Grandparent Diabetes mellitus Family history of coronary artery disease Mother Hypertension Other Cancer Cerebrovascular accident Depression Social History Social History Social History: The patient is a current smoker. She is single and has No children . She works at [employer] and help at home . She drinks alcohol socially. . She lives alone. Code status full code Smoking packs per day: 0.15 Smoking cigarettes per day: 3.0 Years smoked: 8 Smoking pack-years: 1.20 Smoking status: Current so
[2023-03-17] MEDS: ONDANSETRON INJ 4 MG/2 ML VIAL IV PUSH (15:50)
[2023-03-17] MEDS: SODIUM CHLORIDE 0.9% IV 1,000 ML 999 ML IV CONT (15:50)
[2023-03-17] MEDS: HYDROmorphone HCL INJ (*CRX) 1 MG/ML SYR IV PUSH (15:51)
[2023-03-17 16:11] LABS: Lactic Acid Reflex 1.5 mmol/L (0.7-2.0)
[2023-03-17] MEDS: AMOXICILLIN/CLAVULANATE K 875-125 MG TAB 1 TABLET PO (19:02)
== END 2023-03-17 19:21 | disposition home or self-care (01) ==
PROVIDERS: Emergency Provider Emergency Medicine; PCP Family Medicine
DX: K65.1 Peritoneal abscess (principal); F17.210 Nicotine dependence, cigarettes, uncomplicated; F32.A Depression, unspecified; K21.9 Gastro-esophageal reflux disease without esophagitis; I10 Essential (primary) hypertension; G47.30 Sleep apnea, unspecified; E11.9 Type 2 diabetes mellitus without complications; Z87.440 Personal history of urinary (tract) infections
CPT/HCPCS: 36415; 71046; 74177; 80053; 81003; 81025; 83605; 83690; 85025; 87040; 96361; 96374; 96375; 99284; A9270; J1170; J2405; J7030; Q9967

== ENCOUNTER 2023-03-25 12:14 | Observation (INO) | payer OTHER, MEDICAID, SELFPAY ==
--- NOTE | ~2023-03-25 | CT_ITS ---
EXAMINATION: CT abdomen pelvis w con DATE: 03/25/2023 17:13 INDICATION: Abdominal pain. Sigmoid perforation and abscess. TECHNIQUE: Computed tomography (CT) of the abdomen and pelvis was performed with 100 mL Omnipaque-350 intravenous contrast and following administration of 600 mL water soluble rectal contrast. Automated exposure control and iterative reconstruction technique were employed. The dose-length product was 1 741.86 mGy-cm. COMPARISON: 03/17/2023 FINDINGS: Moderate discoid atelectasis at the lingula. Heart size is normal. No pericardial or pleural effusion . Cholecystectomy clips the gallbladder fossa. Liver, spleen, pancreas and right adrenal gland are no rmal. 4.3 cm macroscopic fat attenuation left adrenal myelolipoma. Bilateral nonobstructing nephrolit hiasis the largest measuring 10 mm in a posterior calyx of the horizontal oriented right kidney. Blad bereket, uterus and left adnexa are normal. 4.0 cm right adnexal cyst. Small bowel and appendix are katie l. Rectal contrast extends to the cecum immediately distal to the ileocecal valve. No evident extralu patrick extravasation to suggest a colonic perforation. Again seen are few tiny foci of gas but no evid ent contrast within a 2.5 x 0.8 cm collapsed abscess cavity along the anterior abdominal wall just de ep to the left side of the umbilicus. No free intraperitoneal fluid. Mild scattered degenerative skel etal changes in the spine and pelvis. IMPRESSION: 1. A couple tiny foci of gas within a collapsed 2.5 x 0.8 cm prior abscess cavity deep to the umbilic us. No evident drainable fluid or extravasation of the rectal administered contrast to suggest a pers istent bowel leak. 2. Nonobstructing bilateral nephrolithiasis. Reviewed, dictated and finalized at location A. IMPRESSION: 1. A couple tiny foci of gas within a collapsed 2.5 x 0.8 cm prior abscess cavi ty deep to the umbilicus. No evident drainable fluid or extravasation of the re ctal administered contrast to suggest a persistent bowel leak. 2. Nonobstructing bilateral nephrolithiasis.
--- NOTE | ~2023-03-25 | XR_ITS ---
EXAMINATION: XR chest 1V portable DATE: 03/26/2023 12:26 INDICATION: Leukocytosis. TECHNIQUE: A single frontal view of the chest was obtained. COMPARISON: Chest 2 views 03/17/2023, CT abdomen and pelvis 03/25/2023 FINDINGS: Sensitivity is decreased by obesity. There is no pneumonia, pleural effusion, or pneumothor ax. The heart size is normal. IMPRESSION: 1. No acute cardiopulmonary disease. Reviewed, dictated and finalized at location A.
--- NOTE | 2023-03-25 13:00 | ADMGEN ---
This patient, Angela Duncan, was admitted to Medical Room 261-01. Patient/family oriented to hospital policies and general routines including ID bracelet, bed and alarms, visiting hours, pain management, procedures, bathroom and other care routines, personal items, smoking policy, room service/diet, and visiting hours. Information on how to activate the Rapid Response Team has been discussed. Patient/Family are encouraged to report perceived risks to care and to ask questions if they do not understand what they are told or what they should do.
[2023-03-25 13:01] VITALS: BMI 55.2
[2023-03-25 13:02] VITALS: BP 147/88; PULSE 112; RESP 18; TEMP 37.1; O2SAT 97
--- NOTE | 2023-03-25 13:13 | PM.IMHP ---
H&P: HPI History of Present Illness Date/Time: 03/25/23 13:13 Chief Complaint: Abdominal pain Narrative: Ms. Duncan is a 37-year-old female known to our service as she was treated about two months ago due to abdominal abscesses related to a bowel perforation following a?laparoscopic extensive lysis of adhesions/hysteroscopy/polypectomy/dilatation curettage on 12/20/22.?She was treated with antibiotics and bowel rest, and eventually discharged home. She has been followed by Dr. Tolliver as an outpatient. Last week she called the office c/o recurrent low abdominal pain and foul smelling stool.? She was instructed to go to the ER, which she did. CT scan in the ER showed interval decrease in size of soft tissue containing gas in the lower anterior abdomen below the umbilicus, consistent with resolving/maturing abscess and nonobstructing right nephrolithiasis.? WBC in the ER was 19.? She was discharged with oral course of Augmentin 875/125mg po BID. She presented back to the office today to see Dr. Tolliver in follow-up. Since she was in the ER, she still has moderate epigastric and low abdominal discomfort - rated 8-9/10, loose foul smelling stool, nausea, and intermittent cold sweats.? She denies fever.?Given her persistent abdominal pain and failure of outpatient oral antibiotic therapy, she is being directly admitted to the hospital for further work-up, IV antibiotics, and will plan to repeat a CT scan of the abdomen and pelvis. Review of Systems Review of Systems: All systems reviewed & are unremarkable except as noted in HPI and below Constitutional: Constitutional: Reports no additional constitutional complaints, Reports chills, Denies fatigue, Denies fever(s) and Denies weakness Eyes: Eyes: Reports no additional eye complaints ENT: Reports system reviewed and no additional complaints, except as documented and Denies dizziness Cardiovascular: Cardiovascular: Reports no additional cardiovascular complaints, Denies chest pain and Denies leg edema Respiratory: Respiratory: Reports no additional respiratory complaints, Denies cough and Denies dyspnea Gastrointestinal: Gastrointestinal: Reports as per HPI, Reports no additional gastrointestinal complaints, Reports abdominal pain, Denies melena, Denies hematochezia, Reports change in bowel habits, Reports loose stools, Reports nausea and Denies vomiting Genitourinary: Genitourinary: Reports no additional female genitourinary complaints and Denies dysuria Musculoskeletal: Musculoskeletal: Reports no additional musculoskeletal complaints, Denies abnormal gait and Denies joint swelling Integumentary/Breasts: Skin/Breast: Reports system reviewed and no additional complaints, except as docu Neurologic: Reports system reviewed and no additional complaints, except as documented, Denies headache(s), Denies focal weakness, Denies numbness and Denies tingling PMFSH Past Medical History Medical History Acute bronchitis Allergies Anxiety Change in bowel habit Chest wall syndrome Depression Seeing psychiatry Diarrhea Dyspnea Eczema Elbow fracture, right Flatulence, eructation and gas pain GERD (gastroesophageal reflux disease) Headache, migraine Hyperlipidemia associated with type 2 diabetes mellitus Hypertension Hypoventilation associated with obesity Left ureteral stone Leg fracture, left Migraine Seeing neurology KAYLEE (obstructive sleep apnea) PCOS (polycystic ovarian syndrome) Pleuritic chest pain Pneumonia due to COVID-19 virus Post-operative complication PTSD (post-traumatic stress disorder) TIA (transient ischemic attack) Type 2 diabetes mellitus Ureter obstruction UTI (urinary tract infection) Vaginal bleeding Wrist fracture, bilateral Surgical History Surgical History H/O laparoscopy laparoscopic extensive lysis of adhesions/hysteroscopy/ polypectomy/dilatation curettage Hist
[2023-03-25] MEDS: PANTOPRAZOLE SODIUM IV 40 MG VIAL IV PUSH (14:26)
[2023-03-25] MEDS: PIPERACILLN/TAZ 3.375GM/NS50ML 3.375 GM/50 ML BAG IVPB ×2 (14:26→18:28)
[2023-03-25] MEDS: SODIUM CHLORIDE 0.9% IV 1,000 ML 100 ML IV CONT (14:26)
[2023-03-25] MEDS: HYDROmorphone HCL INJ (*CRX) 1 MG/ML SYR IV PUSH ×2 (14:31→21:12)
[2023-03-25 15:04] LABS: Basophils Absolute Auto 0.1 K/mm3 (0.0-0.1); Basophils Percent Auto 0.3 % (0.2-1.2); Hematocrit 49.5 % (37.0-47.0); Hemoglobin 15.9 g/dL (12.0-15.0); Immature Granulocyte Percent A 2.2 % (0-0.5); Lymphocytes Absolute Auto 2.09 K/mm3 (0.9-3.2); Lymphocytes Percent Auto 9.3 % (18.3-44.2); Mean Corpuscular HGB Conc 32.1 g/dl (32-36); Mean Corpuscular Hemoglobin 29.3 pg (26-34); Mean Corpuscular Volume 91.3 fl (80-100); Mean Platelet Volume 9.9 fl (7.4-10.4); Monocytes Absolute Auto 0.9 K/mm3 (0.1-0.6); Neutrophils Absolute Auto 18.9 K/mm3 (1.3-6.7); Neutrophils Percent Auto 84.2 % (45.5-73.1); Platelet Count Result 313 k/mm3 (150-375); Red Blood Count 5.42 M/mm3 (4.2-5.4); Red Cell Distribution Width 14.5 % (11.5-14.5); White Blood Count 22.5 K/mm3 (4.5-10.0)
[2023-03-25 15:15] LABS: Alanine Aminotransferase 45 U/L (6-35); Albumin Level 4.6 g/dL (3.5-5.1); Alkaline Phosphatase 50 U/L (38-126); Anion Gap 13 mmol/L (8-16); Aspartate Amino Transferase 35 U/L (14-36); Bilirubin,Total 0.6 mg/dL (0.2-1.3); Blood Urea Nitrogen 13 mg/dL (7-17); Calcium 9.2 mg/dL (8.4-10.2); Carbon Dioxide 21 mmol/L (22-30); Chloride 104 mmol/L (98-107); Estimated CRCL calculation 131 ml/min; Estimated Glomerular Filt Rate > 60; Glucose 228 mg/dL (65-110); Lactic Acid Reflex 2.8 mmol/L (0.7-2.0); Potassium 4.1 mmol/L (3.4-5.0); Sodium 138 mmol/L (137-145)
[2023-03-25 16:02] LABS: SPREG INTERNAL CONTROL Positive; Serum Qual hCG Negative
--- NOTE | 2023-03-25 16:09 | PM.IMCN ---
Assessment and Plan Assessment and plan (1) History of abdominal abscess: Code(s): Z87.898 - Personal history of other specified conditions Status: Acute (2) Leukocytosis: Code(s): D72.829 - Elevated white blood cell count, unspecified Status: Acute (3) Type 2 diabetes mellitus: Code(s): E11.9 - Type 2 diabetes mellitus without complications Status: Acute Plan 37 years old F with PMH of morbid obesity,directly admitted with ongoing abdominal pain due to ongoing abdominal abscess 1)Recurrent/Onging Abdominal abscess: Management as per primary team 2)Diabetes Melltitus: BG check TID AC and HS Add lantus+Meal time+SS insulin Adjust dose as needed 3)Restarted home meds 4)DVT ppx: SCD 5)Code:Full 6)Dispo:As per primary team HPI Data of Consult Consult date: 03/25/23 Requesting Physician: Abram Tolliver MD Primary Care Provider: Dana Roy MD Consult Narrative Reason for consult: medical management Narrative: Angela Duncan is a 37 year old female who was treated about two months ago for abdominal abscesses related to a bowel perforation following a?laparoscopic extensive lysis of adhesions/hysteroscopy/polypectomy/dilatation curettage on 12/20/22.?She was treated with antibiotics and bowel rest, and eventually discharged home. She has been followed by Dr. Tolliver as an outpatient. Last week she contacted the office with complaints of recurrent low abdominal pain and foul smelling stool.?Went to ER, underwent. CT scan which showed interval decrease in size of soft tissue containing gas in the lower anterior abdomen below the umbilicus, consistent with resolving/maturing abscess and nonobstructing right nephrolithiasis.? She was discharged with oral course of Augmentin 875/125mg po BID. She presented back to the office to see Dr. Tolliver in follow-up. She still has ongoing abdominal pain , loose foul smelling stool, nausea, and intermittent cold sweats.? ?Given her persistent abdominal pain and failure of outpatient oral antibiotic therapy, she is being directly admitted to the hospital for further work-up, IV antibiotics, and will plan to repeat a CT scan of the abdomen and pelvis. Medicine service was consulted for medical management. Review of Systems Review of Systems: All systems reviewed & are unremarkable except as noted in HPI and below PMFSH Past Medical History Medical History Acute bronchitis Allergies Anxiety Change in bowel habit Chest wall syndrome Depression Seeing psychiatry Diarrhea Dyspnea Eczema Elbow fracture, right Flatulence, eructation and gas pain GERD (gastroesophageal reflux disease) Headache, migraine Hyperlipidemia associated with type 2 diabetes mellitus Hypertension Hypoventilation associated with obesity Left ureteral stone Leg fracture, left Migraine Seeing neurology KAYLEE (obstructive sleep apnea) PCOS (polycystic ovarian syndrome) Pleuritic chest pain Pneumonia due to COVID-19 virus Post-operative complication PTSD (post-traumatic stress disorder) TIA (transient ischemic attack) Type 2 diabetes mellitus Ureter obstruction UTI (urinary tract infection) Vaginal bleeding Wrist fracture, bilateral Surgical History Surgical History H/O laparoscopy laparoscopic extensive lysis of adhesions/hysteroscopy/ polypectomy/dilatation curettage History of lithotripsy History of removal of cyst Hx of cholecystectomy Family History Family History Father Diabetes mellitus Hypertension Family history of elevated blood lipids Grandparent Diabetes mellitus Family history of coronary artery disease Mother Hypertension Other Cancer Cerebrovascular accident Depression Social History Social History Social History:
[2023-03-25 17:59] LABS: Reflex Lactic Acid Yes or No Add Lactic
[2023-03-25 18:21] LABS: Lactic Acid 1.8 mmol/L (0.7-2.0)
[2023-03-25 18:30] LABS: Glucose Point of Care 165 mg/dl (65-105)
[2023-03-25 20:17] LABS: Glucose Point of Care 149 mg/dl (65-105)
[2023-03-25 20:51] VITALS: BP 125/71; PULSE 100; RESP 20; TEMP 36.4; O2SAT 98
[2023-03-25] MEDS: FLUTICASONE PROPIONATE 0.05% NA SPR 16 GM BTL (*BKC) 1 SPRAY NASAL (21:03)
[2023-03-25] MEDS: INSULIN GLARGINE (*BKC) 100 UNITS/ML 48 UNITS SUB-Q (21:03)
[2023-03-25] MEDS: TOPIRAMATE 100 MG TABLET PO (21:05)
[2023-03-26] MEDS: PIPERACILLN/TAZ 3.375GM/NS50ML 3.375 GM/50 ML BAG IVPB ×5 (00:07→23:59)
[2023-03-26] MEDS: HYDROmorphone HCL INJ (*CRX) 1 MG/ML SYR IV PUSH ×3 (02:05→21:33)
[2023-03-26] MEDS: SODIUM CHLORIDE 0.9% IV 1,000 ML 100 ML IV CONT (04:36)
[2023-03-26 05:27] LABS: Basophils Absolute Auto 0.1 K/mm3 (0.0-0.1); Basophils Percent Auto 0.4 % (0.2-1.2); Eosinophils Absolute Auto 0.1 K/mm3 (0-0.3); Eosinophils Percent Auto 0.3 % (0-4.4); Hematocrit 47.2 % (37.0-47.0); Hemoglobin 14.7 g/dL (12.0-15.0); Immature Granulocyte Absolute 0.41 K/mm3 (0.00-0.031); Immature Granulocyte Percent A 1.7 % (0-0.5); Lymphocytes Absolute Auto 5.27 K/mm3 (0.9-3.2); Lymphocytes Percent Auto 22.3 % (18.3-44.2); Mean Corpuscular HGB Conc 31.1 g/dl (32-36); Mean Corpuscular Hemoglobin 28.8 pg (26-34); Mean Corpuscular Volume 92.4 fl (80-100); Mean Platelet Volume 10.1 fl (7.4-10.4); Monocytes Percent Auto 8.5 % (2.6-8.5); Neutrophils Absolute Auto 15.8 K/mm3 (1.3-6.7); Neutrophils Percent Auto 66.8 % (45.5-73.1); Platelet Count Result 291 k/mm3 (150-375); Red Blood Count 5.11 M/mm3 (4.2-5.4); Red Cell Distribution Width 14.2 % (11.5-14.5); White Blood Count 23.7 K/mm3 (4.5-10.0)
[2023-03-26 05:34] LABS: Anion Gap 11 mmol/L (8-16); Blood Urea Nitrogen 14 mg/dL (7-17); Calcium 8.2 mg/dL (8.4-10.2); Carbon Dioxide 23 mmol/L (22-30); Chloride 105 mmol/L (98-107); Estimated CRCL calculation 117 ml/min; Estimated Glomerular Filt Rate > 60; Glucose 117 mg/dL (65-110); Potassium 3.5 mmol/L (3.4-5.0); Sodium 139 mmol/L (137-145)
[2023-03-26 06:32] VITALS: BP 118/78; PULSE 92; RESP 20; TEMP 36.6; O2SAT 99
[2023-03-26 08:00] VITALS: PULSE 80; RESP 20; O2SAT 99
[2023-03-26] MEDS: FLUTICASONE PROPIONATE 0.05% NA SPR 16 GM BTL (*BKC) 1 SPRAY NASAL ×2 (08:20→21:32)
[2023-03-26] MEDS: ARIPiprazole 10 MG TABLET 20 MG PO (08:20)
[2023-03-26] MEDS: DESVENLAFAXINE SUCCINATE 50 MG TAB.ER.24H 100 MG PO (08:21)
[2023-03-26] MEDS: ATORVASTATIN 10 MG TABLET PO (08:21)
[2023-03-26] MEDS: TOPIRAMATE 25 MG TABLET 50 MG PO (08:21)
[2023-03-26] MEDS: SPIRONOLACTONE 50 MG TABLET 100 MG PO (08:21)
[2023-03-26] MEDS: EMPAGLIFLOZIN 25 MG TABLET PO (08:21)
[2023-03-26 08:22] VITALS: PULSE 80
[2023-03-26] MEDS: METOPROLOL SUCCINATE EXT REL 50 MG TABCR PO (08:22)
[2023-03-26] MEDS: PANTOPRAZOLE SODIUM IV 40 MG VIAL IV PUSH (08:22)
[2023-03-26] MEDS: lisinopriL 5 MG TABLET PO (08:22)
[2023-03-26 08:29] LABS: Glucose Point of Care 138 mg/dl (65-105)
--- NOTE | 2023-03-26 11:11 | PM.IMPN ---
Progress Note: A&P Assessment and Plan (1) History of abdominal abscess: Code(s): Z87.898 - Personal history of other specified conditions Status: Acute (2) Leukocytosis: Code(s): D72.829 - Elevated white blood cell count, unspecified Status: Acute (3) Type 2 diabetes mellitus: Code(s): E11.9 - Type 2 diabetes mellitus without complications Status: Acute Plan 37 years old F with PMH of morbid obesity,directly admitted with ongoing abdominal pain due to ongoing abdominal abscess 1)Recurrent/Onging Abdominal abscess: Management as per primary team CT shows no infection, unsure why leuk continues, check CXR + UA + bld cx, CRP, LA, PCT Consult to GI pending, may need scope for IBD? 2)Diabetes Melltitus: BG check TID AC and HS Add lantus+Meal time+SS insulin Adjust dose as needed, increase lantus to 50 from 48 03/26, usual dose is 75, will inc as diet advances 3)Restarted home meds 4)DVT ppx: SCD 5)Code:Full 6)Dispo:As per primary team Subjective Date/time seen: 03/26/23 11:11 Interval history: No overnight events noted. No chest pain or shortness of breath. No nausea, vomiting or diarrhea. No fevers or chills. Still with abdominal pain. Review of Systems Review of Systems: 12 point review of systems was assessed and was negative except as noted in the HPI Exam Narrative: General: No acute distress, alert and oriented per baseline HEENT: Atraumatic, normocephalic, mucous membranes moist CV: Regular rate and rhythm, S1, S2 Lungs: Clear to auscultation bilaterally, no rales or crackles noted, no wheezes, good air entry Abdomen: Soft, TTP, nondistended Extremities: Normal to inspection Skin: No rashes noted, no lesions or wounds seen Psych: Euthymic, normal affect Objective Data Vital Signs Vital Signs: Vital Signs - 24 hr 03/25/23 13:02 03/25/23 14:00 03/25/23 20:51 Temperature 98.7 F 97.5 F L Pulse Rate 112 H 100 Respiratory Rate 18 20 Blood Pressure 147/88 H 125/71 Pulse Oximetry 97 98 Oxygen Delivery Room Air 03/26/23 06:32 03/26/23 08:22 03/26/23 08:00 Temperature 97.8 F Pulse Rate 92 80 80 Respiratory Rate 20 20 Blood Pressure 118/78 Pulse Oximetry 99 99 Oxygen Delivery Room Air Intake/Output Intake/Output: Intake & Output 03/23/23 03/24/23 03/25/23 03/26/23 23:59 23:59 23:59 23:59 Intake Total 50 1050 Output Total 800 900 Balance -750 150 Meds/Results Medications: Active Medications Generic Name Dose Route Start Last Admin Trade Name Freq PRN Reason Stop Dose Admin Aripiprazole 20 mg 03/26/23 09:00 03/26/23 08:20 Aripiprazole 10 Mg Tablet PO 04/25/23 08:59 20 mg DAILY RAAD Administration Atorvastatin Calcium 10 mg 03/26/23 09:00 03/26/23 08:21 Atorvastatin 10 Mg Tablet PO 10 mg DAILY RAAD Administration Desvenlafaxine Succinate 100 mg 03/26/23 09:00 03/26/23 08:21 Desvenlafaxine Succinate 50 Mg Tab.Er.24h PO 04/25/23 08:59 100 mg DAILY RAAD Administration Dextrose 12.5 gm 03/25/23 16:06 Dextrose 50% 25 Gm/50 Ml Syringe IV PUSH PRN PRN Hypoglycemia Protocol Empagliflozin 25 mg 03/26/23 09:00 03/26/23 08:21 Empagliflozin 25 Mg Tablet PO 25 mg DAILY RAAD Administration Fluticasone Propionate 1 spray 03/25/23 21:00 03/26/23 08:20 Fluticasone Propionate 0.05% Na Spr 16 Gm Btl (*Bkc) NASAL 1 spray Q12HR RAAD Administration Glucagon 1 mg 03/25/23 16:06 Glucagon For Inj 1 Mg Vial IM PRN PRN Hypoglycemia Protocol Glucose 15 gm 03/25/23 16:06 Glucose Oral Gel 15 Gm Of Glucse In 37.5 Gm Tube PO PRN PRN Hypoglycemia Protocol Hydromorphone HCl 0.5 mg 03/25/23 13:06 Hydromorphone Hcl Inj (*Crx) 1 Mg/Ml Syr IV PUSH Q3H PRN Pain Rated 4-6 Hydromorphone HCl 1 mg 03/25/23 13:06 03/26/23 05:51 Hydromorphone Hcl Inj (*Crx) 1 Mg/Ml Syr IV PUSH 1 mg Q3H P
--- NOTE | 2023-03-26 11:36 | PM.PNGS ---
Progress Note: A&P Assessment and Plan (1) Bilateral lower abdominal pain: Code(s): R10.31 - Right lower quadrant pain; R10.32 - Left lower quadrant pain Status: Acute Assessment and Plan: Her main complaint is still her lower abdominal pain without any improvement. CT abdomen pelvis with IV/oral/rectal contrast actually showed improvement of the collapsed abscess cavity with no extravasation to suggest persistent bowel leak. No other findings on the CT that would explain her abdominal pain or leukocytosis. Her WBC count was noted to be 23,000 this morning. Will continue IV Zosyn for now and start evaluating for other possible causes for her leukocytosis as it does not appear to be related to her abdomen. She has no additional complaints with thorough questioning. Will add a urinalysis, chest x-ray, blood cultures, and c. diff. Discussed the case with the Hospitalist for any further suggestions regarding etiology of the leukocytosis. Could also consider an echocardiogram to evaluate for vegetations? I will give her a full liquid diet and start advancing as tolerated. Stop IV fluids. Repeat labs again tomorrow. (2) History of abdominal abscess: Code(s): Z87.898 - Personal history of other specified conditions Status: Acute Assessment and Plan: Improved by CT. Not the cause of her leukocytosis. (3) Morbid obesity with BMI of 50.0-59.9, adult: Code(s): E66.01 - Morbid (severe) obesity due to excess calories; Z68.43 - Body mass index [BMI] 50.0-59.9, adult Status: Acute (4) Type 2 diabetes mellitus: Code(s): E11.9 - Type 2 diabetes mellitus without complications Status: Acute Plan I have discussed the patient's case and plan of care with Dr. Tolliver. Subjective Subjective Date/Time Seen: 03/26/23 11:36 Patient reports: no new complaints, still having pain, flatus and afebrile Interval history: Patient seen this morning and feels about the same as yesterday. She has been taking the IV Dilaudid for her lower abdominal pain and reports this is helping. Denies any nausea or vomiting. No other additional complaints. She has been afebrile. CT scan shows a continued decrease in size of a collapsed abscess cavity with no other significant findings to account for her abdominal pain or leukocytosis. White blood cell count noted to be 23,000 this morning. She denies any chest pain, cough, sore throat, urinary symptoms, calf pain, leg swelling, or any other additional symptoms. She is thirsty and hungry, and eager to start a diet. She has been NPO since admission. Review of Systems Constitutional: Constitutional: Reports no additional constitutional complaints, Denies chills, Denies fatigue, Denies fever(s), Denies headache(s), Denies malaise, Denies night sweats, Denies poor appetite and Denies weakness Eyes: Eyes: Reports no additional eye complaints ENT: Reports system reviewed and no additional complaints, except as documented and Denies nasal congestion Cardiovascular: Cardiovascular: Reports no additional cardiovascular complaints, Denies chest pain, Denies leg edema and Denies palpitations Respiratory: Respiratory: Reports no additional respiratory complaints, Denies chest congestion, Denies cough and Denies dyspnea Gastrointestinal: Gastrointestinal: Reports as per HPI, Reports no additional gastrointestinal complaints, Denies change in bowel habits, Denies change in stool character, Denies diarrhea, Denies nausea and Denies vomiting Genitourinary: Genitourinary: Reports no additional female genitourinary complaints, Denies dysuria, Denies flank pain and Denies urinary urgency Musculoskeletal: Musculoskeletal: Reports no additional musculoskeletal complaints Integumentary/Breasts: Skin/Breast: Reports system reviewed and no additional complaints, except as docu, Denies erythema and Denies sores Exam Const: General: comfortable, no acute distress and obese Orientation/consciousnes
[2023-03-26 11:57] LABS: Glucose Point of Care 154 mg/dl (65-105)
[2023-03-26] MEDS: INSULIN ASPART (*BKC) 100 UNITS/ML 16 UNITS SUB-Q ×2 (12:26→17:21)
[2023-03-26 14:00] VITALS: BP 128/84; PULSE 92; RESP 18; TEMP 36.2; O2SAT 95
[2023-03-26 15:11] LABS: Appearance Urine Cloudy (Clear); Bacteria Urine None Seen /hpf; Bilirubin Urine Negative (Negative); Blood Urine Negative (Negative); Color Urine Yellow (Yellow); Glucose Urine UA 3+ mg/dL (Negative); Ketones Urine Negative (Negative); Leukocyte Esterase Ur Negative LEU/UL (Negative); Need Manual Microscopic Reviewed; Nitrate Urine Negative (Negative); Non Pathogenic Casts 0-2; Protein Urine Negative (Negative); Specific Grav Ur 1.038 (1.001-1.035); Squamous Epithelial Cell Urine Moderate /hpf (Few); Urobilinogen Urine 0.2 mg/dL (<2.0)
[2023-03-26 15:12] LABS: Add Urine Microscopic? YES
[2023-03-26 15:17] LABS: Toxigenic C. Diff NEGATIVE (NEGATIVE)
[2023-03-26] MEDS: HYDROmorphone HCL INJ (*CRX) 1 MG/ML SYR 0.5 MG IV PUSH (16:28)
--- NOTE | 2023-03-26 16:48 | PC.NURSE ---
Attempted to complete GI consult, no GI doctor available until Friday. Dr. Sanchez stated if it was an urgent issue that could not wait until Friday, pt would need to be transferred out. Nurse program project manager aware.
[2023-03-26 16:55] LABS: Glucose Point of Care 131 mg/dl (65-105)
[2023-03-26 18:13] LABS: Lactic Acid Reflex 1.7 mmol/L (0.7-2.0)
[2023-03-26 18:56] LABS: Procalcitonin 0.1 ng/mL
[2023-03-26 20:44] LABS: Glucose Point of Care 249 mg/dl (65-105)
[2023-03-26] MEDS: TOPIRAMATE 100 MG TABLET PO (21:35)
[2023-03-26] MEDS: INSULIN GLARGINE (*BKC) 100 UNITS/ML 50 UNITS SUB-Q (21:35)
[2023-03-26 22:37] VITALS: BP 118/67; PULSE 90; RESP 18; TEMP 36.2; O2SAT 96
[2023-03-27] MEDS: HYDROmorphone HCL INJ (*CRX) 1 MG/ML SYR IV PUSH (05:11)
[2023-03-27] MEDS: PIPERACILLN/TAZ 3.375GM/NS50ML 3.375 GM/50 ML BAG IVPB (05:17)
[2023-03-27 05:36] LABS: Basophils Absolute Auto 0.1 K/mm3 (0.0-0.1); Basophils Percent Auto 0.4 % (0.2-1.2); Eosinophils Absolute Auto 0.2 K/mm3 (0-0.3); Eosinophils Percent Auto 1.1 % (0-4.4); Hemoglobin 14.4 g/dL (12.0-15.0); Immature Granulocyte Absolute 0.25 K/mm3 (0.00-0.031); Immature Granulocyte Percent A 1.4 % (0-0.5); Lymphocytes Percent Auto 23.4 % (18.3-44.2); Mean Corpuscular HGB Conc 31.3 g/dl (32-36); Mean Corpuscular Hemoglobin 29.2 pg (26-34); Mean Corpuscular Volume 93.3 fl (80-100); Mean Platelet Volume 10.1 fl (7.4-10.4); Monocytes Absolute Auto 1.3 K/mm3 (0.1-0.6); Monocytes Percent Auto 7.2 % (2.6-8.5); Neutrophils Absolute Auto 11.6 K/mm3 (1.3-6.7); Neutrophils Percent Auto 66.5 % (45.5-73.1); Platelet Count Result 275 k/mm3 (150-375); Red Blood Count 4.93 M/mm3 (4.2-5.4); Red Cell Distribution Width 14.3 % (11.5-14.5); White Blood Count 17.5 K/mm3 (4.5-10.0)
[2023-03-27 05:44] LABS: Alanine Aminotransferase 38 U/L (6-35); Albumin Level 3.8 g/dL (3.5-5.1); Alkaline Phosphatase 45 U/L (38-126); Anion Gap 10 mmol/L (8-16); Aspartate Amino Transferase 27 U/L (14-36); Bilirubin,Total 0.7 mg/dL (0.2-1.3); Blood Urea Nitrogen 12 mg/dL (7-17); Calcium 7.9 mg/dL (8.4-10.2); Carbon Dioxide 20 mmol/L (22-30); Chloride 106 mmol/L (98-107); Estimated CRCL calculation 148 ml/min; Estimated Glomerular Filt Rate > 60; Glucose 226 mg/dL (65-110); Potassium 3.7 mmol/L (3.4-5.0); Sodium 136 mmol/L (137-145)
[2023-03-27 06:54] VITALS: BP 139/59; PULSE 88; RESP 18; TEMP 35.9; O2SAT 95
[2023-03-27] MEDS: FLUTICASONE PROPIONATE 0.05% NA SPR 16 GM BTL (*BKC) 1 SPRAY NASAL ×2 (08:18→20:39)
[2023-03-27] MEDS: lisinopriL 5 MG TABLET PO (08:20)
[2023-03-27] MEDS: ATORVASTATIN 10 MG TABLET PO (08:20)
[2023-03-27] MEDS: DESVENLAFAXINE SUCCINATE 50 MG TAB.ER.24H 100 MG PO (08:20)
[2023-03-27] MEDS: TOPIRAMATE 25 MG TABLET 50 MG PO (08:20)
[2023-03-27 08:21] VITALS: PULSE 100
[2023-03-27] MEDS: EMPAGLIFLOZIN 25 MG TABLET PO (08:21)
[2023-03-27] MEDS: ARIPiprazole 10 MG TABLET 20 MG PO (08:21)
[2023-03-27] MEDS: METOPROLOL SUCCINATE EXT REL 50 MG TABCR PO (08:21)
[2023-03-27] MEDS: SPIRONOLACTONE 50 MG TABLET 100 MG PO (08:22)
[2023-03-27] MEDS: PANTOPRAZOLE SODIUM IV 40 MG VIAL IV PUSH (08:22)
[2023-03-27] MEDS: INSULIN ASPART (*BKC) 100 UNITS/ML 16 UNITS SUB-Q ×3 (08:26→17:30)
[2023-03-27] MEDS: oxyCODONE HCL (*CRX) 5 MG TAB IR PO ×3 (08:37→20:38)
[2023-03-27 08:40] LABS: Glucose Point of Care 148 mg/dl (65-105)
--- NOTE | 2023-03-27 10:17 | PM.IMPN ---
Progress Note: A&P Assessment and Plan (1) History of abdominal abscess: Code(s): Z87.898 - Personal history of other specified conditions Status: Acute (2) Leukocytosis: Code(s): D72.829 - Elevated white blood cell count, unspecified Status: Acute (3) Type 2 diabetes mellitus: Code(s): E11.9 - Type 2 diabetes mellitus without complications Status: Acute Plan 37 years old F with PMH of morbid obesity, directly admitted with ongoing abdominal pain due to ongoing abdominal abscess, found to be resolved, with continued abdominal pain. Recurrent/Onging Abdominal abscess? resolved? Management as per primary team CT shows no infection, unsure why leuk continues, check CXR + UA + bld cx, CRP, LA, PCT Consult to GI pending, unavailable until Friday, f/u outpatient, may need scope for IBD vs diverticulitis vs ? 03/27: labs unremarkable for infection, leuk down on zosyn, would transition to cipro/flagyl for possible colitis and d/c with outpatient f/u by GI for colonoscopy once tolerating po, unsure of etiology, but no signs of sepsis, could be combination of reactive leukocytosis vs underlying IBD/infectious colitis? failed outpatient augmentin, suspect cipro/flagyl regimen for 10-14 days would suffice Diabetes Melltitus: BG check TID AC and HS, a1c = 8 Add lantus+Meal time+SS insulin Adjust dose as needed, increase lantus to 50 from 48 03/26, usual dose is 75, will inc as diet advances Restarted home meds DVT ppx: SCD Code:Full Dispo:As per primary team Subjective Date/time seen: 03/27/23 10:17 Interval history: No overnight events noted. No chest pain or shortness of breath. No nausea, vomiting or diarrhea. No fevers or chills. Still with abdominal pain, intermittent crampy. Review of Systems Review of Systems: 12 point review of systems was assessed and was negative except as noted in the HPI Exam Narrative: General: No acute distress, alert and oriented per baseline HEENT: Atraumatic, normocephalic, mucous membranes moist CV: Regular rate and rhythm, S1, S2 Lungs: Clear to auscultation bilaterally, no rales or crackles noted, no wheezes, good air entry Abdomen: Soft, TTP, nondistended Extremities: Normal to inspection Skin: No rashes noted, no lesions or wounds seen Psych: Euthymic, normal affect Objective Data Vital Signs Vital Signs: Vital Signs - 24 hr 03/26/23 14:00 03/26/23 22:37 03/26/23 20:00 Temperature 97.1 F L 97.1 F L Pulse Rate 92 90 Respiratory Rate 18 18 Blood Pressure 128/84 118/67 Pulse Oximetry 95 96 Oxygen Delivery Room Air 03/27/23 06:54 03/27/23 08:21 Temperature 96.6 F L Pulse Rate 88 100 Respiratory Rate 18 Blood Pressure 139/59 L Pulse Oximetry 95 Oxygen Delivery Intake/Output Intake/Output: Intake & Output 03/24/23 03/25/23 03/26/23 03/27/23 23:59 23:59 23:59 23:59 Intake Total 50 2670 980 Output Total 800 2050 900 Balance -750 620 80 Meds/Results Medications: Active Medications Generic Name Dose Route Start Last Admin Trade Name Freq PRN Reason Stop Dose Admin Acetaminophen 1,000 mg 03/27/23 08:20 Acetaminophen 500 Mg Tablet PO Q6H PRN Mild Pain (1-3) or Fever Aripiprazole 20 mg 03/26/23 09:00 03/27/23 08:21 Aripiprazole 10 Mg Tablet PO 04/25/23 08:59 20 mg DAILY RAAD Administration Atorvastatin Calcium 10 mg 03/26/23 09:00 03/27/23 08:20 Atorvastatin 10 Mg Tablet PO 10 mg DAILY RAAD Administration Desvenlafaxine Succinate 100 mg 03/26/23 09:00 03/27/23 08:20 Desvenlafaxine Succinate 50 Mg Tab.Er.24h PO 04/25/23 08:59 100 mg DAILY RAAD Administration Dextrose 12.5 gm 03/25/23 16:06 Dextrose 50% 25 Gm/50 Ml Syringe IV PUSH PRN PRN Hypoglycemia Protocol Empagliflozin 25 mg 03/26/23 09:00 03/27/23 08:21 Empagliflozin 25 Mg Tablet PO 25 mg DAILY RAAD Administration Fluticasone Propionate 1 sp
[2023-03-27] MEDS: CIPROFLOXACIN 400 MG/D5W 200ML 200 ML 200 MG IVPB ×2 (11:26→20:47)
[2023-03-27 11:59] LABS: Glucose Point of Care 114 mg/dl (65-105)
--- NOTE | 2023-03-27 12:41 | PM.PNGS ---
Progress Note: A&P Assessment and Plan (1) Bilateral lower abdominal pain: Code(s): R10.31 - Right lower quadrant pain; R10.32 - Left lower quadrant pain Status: Acute Assessment and Plan: Lower abdominal/pelvic pain with leukocytosis. CT without any evidence of an obvious source for her pain or leukocytosis. WBC down to 17,000 today. She remains afebrile without any new complaints. Chest x-ray negative. UA negative. Blood cx pending. No diarrhea, therefore c.diff has not been collected. Continue IV Zosyn and repeat labs again tomorrow. No surgical cause for her leukocytosis. Transition to oral analgesics. Could consider other GI/[employer] etiologies for her abdominal/pelvic pain. This could be further evaluated as an outpatient if pain is controlled. (2) History of abdominal abscess: Code(s): Z87.898 - Personal history of other specified conditions Status: Acute Assessment and Plan: Improved by CT. Not the cause of her leukocytosis. (3) Morbid obesity with BMI of 50.0-59.9, adult: Code(s): E66.01 - Morbid (severe) obesity due to excess calories; Z68.43 - Body mass index [BMI] 50.0-59.9, adult Status: Acute (4) Type 2 diabetes mellitus: Code(s): E11.9 - Type 2 diabetes mellitus without complications Status: Acute Plan I have discussed the patient's case and plan of care with Dr. Tolliver. Subjective Subjective Date/Time Seen: 03/27/23 09:41 Patient reports: no new complaints, still having pain, tolerating a regular diet, voiding w/o difficulty, flatus, bowel movement and afebrile Interval history: Patient feels about the same today. Still has lower abdominal pain and is pointing more today to left pelvic area. She still had IV Dilaudid overnight. I added oral analgesics now that she is on a solid diet. Tolerating her diet well. No diarrhea. Had one normal BM yesterday, therefore C diff has not been collected. No additional or new complaints. UA negative, CXR negative. Review of Systems Review of Systems: ROS unchanged Exam Const: General: comfortable and no acute distress Nutritional Appearance: obese Orientation/consciousness: patient oriented x3 GI: Inspection: obesity (large obese abdomen not significantly distended) GI Palp: Yes Soft to palpation, Yes Tenderness to palpation present (GI) (mild lower abdominal tenderness with deep palpation), No Guarding due to palpation present (GI), No Rigid due to palpation and No Rebound tenderness present Auscultation: normal bowel sounds Extrem: General: no calf tenderness and no edema Psych: Mental Status: mental status grossly normal Insight: Good insight present (Psych) Objective Data Vital Signs Vital Signs: Vital Signs - 24 hr 03/26/23 14:00 03/26/23 22:37 03/26/23 20:00 Temperature 97.1 F L 97.1 F L Pulse Rate 92 90 Respiratory Rate 18 18 Blood Pressure 128/84 118/67 Pulse Oximetry 95 96 Oxygen Delivery Room Air 03/27/23 06:54 03/27/23 08:21 03/27/23 08:34 Temperature 96.6 F L Pulse Rate 88 100 Respiratory Rate 18 Blood Pressure 139/59 L Pulse Oximetry 95 Oxygen Delivery Room Air Intake/Output Intake/Output: Intake & Output 03/24/23 03/25/23 03/26/23 03/27/23 23:59 23:59 23:59 23:59 Intake Total 50 2670 1420 Output Total 800 2050 900 Balance -750 620 520 Meds/Results Medications: Active Medications Generic Name Dose Route Start Last Admin Trade Name Freq PRN Reason Stop Dose Admin Acetaminophen 1,000 mg 03/27/23 08:20 Acetaminophen 500 Mg Tablet PO Q6H PRN Mild Pain (1-3) or Fever Aripiprazole 20 mg 03/26/23 09:00 03/27/23 08:21 Aripiprazole 10 Mg Tablet PO 04/25/23 08:59 20 mg DAILY RAAD Administration Atorvastatin Calcium 10 mg 03/26/23 09:00 03/27/23 08:20 Atorvastatin 10 Mg Tablet PO 10 mg DAILY RAAD Administration Desvenlafaxine Succinate 100 mg 03/26/23 09:00 03/27/23 08:20 Desvenlafaxine Succinate 50
[2023-03-27 14:00] VITALS: BP 103/41; PULSE 90; RESP 18; TEMP 36.8; O2SAT 100
[2023-03-27] MEDS: metroNIDAZOLE 500 MG/ISO 100ML 500 MG/100 ML BAG 100 MG IVPB ×2 (14:07→21:59)
[2023-03-27 17:06] LABS: Glucose Point of Care 199 mg/dl (65-105)
[2023-03-27 20:11] VITALS: BP 124/78; PULSE 104; RESP 20; TEMP 36.5; O2SAT 100
[2023-03-27] MEDS: TOPIRAMATE 100 MG TABLET PO (20:39)
[2023-03-27] MEDS: INSULIN GLARGINE (*BKC) 100 UNITS/ML 50 UNITS SUB-Q (20:40)
[2023-03-27 21:37] LABS: Glucose Point of Care 171 mg/dl (65-105)
[2023-03-27 22:35] LABS: Glucose Point of Care 187 mg/dl (65-105)
[2023-03-28 04:49] VITALS: BP 122/71; PULSE 99; RESP 20; TEMP 36.2; O2SAT 98
[2023-03-28] MEDS: oxyCODONE HCL (*CRX) 5 MG TAB IR PO ×3 (04:55→16:13)
[2023-03-28] MEDS: metroNIDAZOLE 500 MG/ISO 100ML 500 MG/100 ML BAG 100 MG IVPB ×2 (05:00→14:07)
[2023-03-28 05:22] LABS: Basophils Absolute Auto 0.1 K/mm3 (0.0-0.1); Basophils Percent Auto 0.6 % (0.2-1.2); Eosinophils Absolute Auto 0.2 K/mm3 (0-0.3); Eosinophils Percent Auto 1.2 % (0-4.4); Hematocrit 49.5 % (37.0-47.0); Hemoglobin 15.4 g/dL (12.0-15.0); Immature Granulocyte Absolute 0.26 K/mm3 (0.00-0.031); Immature Granulocyte Percent A 1.4 % (0-0.5); Lymphocytes Absolute Auto 4.23 K/mm3 (0.9-3.2); Mean Corpuscular HGB Conc 31.1 g/dl (32-36); Mean Corpuscular Hemoglobin 28.6 pg (26-34); Monocytes Absolute Auto 1.6 K/mm3 (0.1-0.6); Monocytes Percent Auto 8.3 % (2.6-8.5); Neutrophils Absolute Auto 12.8 K/mm3 (1.3-6.7); Neutrophils Percent Auto 66.5 % (45.5-73.1); Platelet Count Result 303 k/mm3 (150-375); Red Blood Count 5.38 M/mm3 (4.2-5.4); Red Cell Distribution Width 14.5 % (11.5-14.5); White Blood Count 19.2 K/mm3 (4.5-10.0)
[2023-03-28 05:34] LABS: Alanine Aminotransferase 39 U/L (6-35); Alkaline Phosphatase 45 U/L (38-126); Anion Gap 5 mmol/L (8-16); Aspartate Amino Transferase 33 U/L (14-36); Bilirubin,Total 0.6 mg/dL (0.2-1.3); Blood Urea Nitrogen 12 mg/dL (7-17); Calcium 8.3 mg/dL (8.4-10.2); Carbon Dioxide 30 mmol/L (22-30); Chloride 104 mmol/L (98-107); Estimated CRCL calculation 117 ml/min; Estimated Glomerular Filt Rate > 60; Glucose 167 mg/dL (65-110); Potassium 3.9 mmol/L (3.4-5.0); Sodium 139 mmol/L (137-145)
--- NOTE | 2023-03-28 08:02 | PM.IMPN ---
Progress Note: A&P Assessment and Plan (1) History of abdominal abscess: Code(s): Z87.898 - Personal history of other specified conditions Status: Acute (2) Leukocytosis: Code(s): D72.829 - Elevated white blood cell count, unspecified Status: Acute (3) Type 2 diabetes mellitus: Code(s): E11.9 - Type 2 diabetes mellitus without complications Status: Acute Plan 37 years old F with PMH of morbid obesity, directly admitted with ongoing abdominal pain due to ongoing abdominal abscess, found to be resolved, with continued abdominal pain. Recurrent/Onging Abdominal abscess? resolved? Management as per primary team CT shows no infection, unsure why leuk continues, check CXR + UA + bld cx, CRP, LA, PCT Consult to GI pending, unavailable until Friday, f/u outpatient, may need scope for IBD vs diverticulitis vs ? 03/27: labs unremarkable for infection, leuk down on zosyn, would transition to cipro/flagyl for possible colitis and d/c with outpatient f/u by GI for colonoscopy once tolerating po, unsure of etiology, but no signs of sepsis, could be combination of reactive leukocytosis vs underlying IBD/infectious colitis? failed outpatient augmentin, suspect cipro/flagyl regimen for 10-14 days would suffice 03/28: leuk slight increase from to , suspect component of dehydration, will give bolus IVF, recheck CBC at noon, recheck CRP + PCT, diff is trending down, suspect fluctuations due to continued infection and changes in hydration status--do not suspect worsening infection, need colonoscopy and GI consult still as outpatient. Viral panel for RSV/COVID/flu negative. UPDATE: repeat labs after bolus much improved, infection appears to be resolving, leuk trending down, diff showing less immature cells, PCT still 0.1, CRP slightly elevated at 2.1, consistent with inflammation. Would d/c today on cipro + flagyl with outpatient f/u with GI. Diabetes Mellitus: BG check TID AC and HS, a1c = 8 Add lantus+Meal time+SS insulin Adjust dose as needed, increase lantus to 50 from 48 03/26, usual dose is 75, will inc as diet advances Blood glucose reviewed 03/28, consistently under 200 Increase lantus to 55 units 03/28 Restarted home meds DVT ppx: SCD Code:Full Dispo:As per primary team Subjective Date/time seen: 03/28/23 08:02 Interval history: No overnight events noted. No chest pain or shortness of breath. No nausea, vomiting or diarrhea. No fevers or chills. Still with continued abdominal pain, about the same as yesterday. Review of Systems Review of Systems: 12 point review of systems was assessed and was negative except as noted in the HPI Exam Narrative: General: No acute distress, alert and oriented per baseline HEENT: Atraumatic, normocephalic, mucous membranes moist CV: Regular rate and rhythm, S1, S2 Lungs: Clear to auscultation bilaterally, no rales or crackles noted, no wheezes, good air entry Abdomen: Soft, TTP, nondistended Extremities: Normal to inspection Skin: No rashes noted, no lesions or wounds seen Psych: Euthymic, normal affect Objective Data Vital Signs Vital Signs: Vital Signs - 24 hr 03/27/23 08:21 03/27/23 08:34 03/27/23 14:00 Temperature 98.2 F Pulse Rate 100 90 Respiratory Rate 18 Blood Pressure 103/41 L Pulse Oximetry 100 Oxygen Delivery Room Air 03/27/23 20:11 03/27/23 20:00 03/28/23 04:49 Temperature 97.7 F 97.1 F L Pulse Rate 104 H 99 Respiratory Rate 20 20 Blood Pressure 124/78 122/71 Pulse Oximetry 100 98 Oxygen Delivery Room Air Intake/Output Intake/Output: Intake & Output 03/25/23 03/26/23 03/27/23 03/28/23 23:59 23:59 23:59 23:59 Intake Total 50 2670 3560 590 Output Total 800 2050 3550 900 Balance -750 620 10 -310 Meds/Results Medications: Active Medications Generic Name Dose Route Start Last Admin Trade Name Freq PRN Reason Stop Dose Admin Acetaminophen 1,000 mg 03/27/23 08:20 [place]
[2023-03-28 08:22] LABS: CRP 2.1 mg/dL (<1.0)
[2023-03-28 08:25] LABS: Glucose Point of Care 181 mg/dl (65-105)
[2023-03-28 08:40] LABS: Procalcitonin 0.1 ng/mL
[2023-03-28] MEDS: INSULIN ASPART (*BKC) 100 UNITS/ML 16 UNITS SUB-Q ×3 (09:20→17:33)
[2023-03-28] MEDS: ARIPiprazole 10 MG TABLET 20 MG PO (09:26)
[2023-03-28] MEDS: ATORVASTATIN 10 MG TABLET PO (09:26)
[2023-03-28] MEDS: EMPAGLIFLOZIN 25 MG TABLET PO (09:27)
[2023-03-28] MEDS: FLUTICASONE PROPIONATE 0.05% NA SPR 16 GM BTL (*BKC) 1 SPRAY NASAL (09:27)
[2023-03-28] MEDS: lisinopriL 5 MG TABLET PO (09:27)
[2023-03-28] MEDS: DESVENLAFAXINE SUCCINATE 50 MG TAB.ER.24H 100 MG PO (09:27)
[2023-03-28 09:28] VITALS: PULSE 99
[2023-03-28] MEDS: TOPIRAMATE 25 MG TABLET 50 MG PO (09:28)
[2023-03-28] MEDS: METOPROLOL SUCCINATE EXT REL 50 MG TABCR PO (09:28)
[2023-03-28] MEDS: SPIRONOLACTONE 50 MG TABLET 100 MG PO (09:28)
[2023-03-28] MEDS: PANTOPRAZOLE SODIUM IV 40 MG VIAL IV PUSH (09:29)
[2023-03-28] MEDS: SODIUM CHLORIDE 0.9% IV 1,000 ML 999 ML IV CONT (09:33)
[2023-03-28] MEDS: CIPROFLOXACIN 400 MG/D5W 200ML 200 ML 200 MG IVPB (09:33)
[2023-03-28 10:37] LABS: Influenza A QL RT-PCR Negative (Negative); Influenza B QL RT-PCR Negative (Negative); RSV RNA, RT-PCR Negative (Negative); SARS-CoV-2 RNA PCR Negative (Negative)
[2023-03-28 11:50] LABS: Basophils Absolute Auto 0.1 K/mm3 (0.0-0.1); Basophils Percent Auto 0.5 % (0.2-1.2); Eosinophils Absolute Auto 0.2 K/mm3 (0-0.3); Eosinophils Percent Auto 1.1 % (0-4.4); Hematocrit 47.7 % (37.0-47.0); Immature Granulocyte Absolute 0.23 K/mm3 (0.00-0.031); Immature Granulocyte Percent A 1.3 % (0-0.5); Lymphocytes Absolute Auto 3.71 K/mm3 (0.9-3.2); Lymphocytes Percent Auto 21.1 % (18.3-44.2); Mean Corpuscular HGB Conc 31.4 g/dl (32-36); Mean Corpuscular Hemoglobin 29.4 pg (26-34); Mean Corpuscular Volume 93.5 fl (80-100); Mean Platelet Volume 9.9 fl (7.4-10.4); Monocytes Absolute Auto 1.5 K/mm3 (0.1-0.6); Monocytes Percent Auto 8.7 % (2.6-8.5); Neutrophils Absolute Auto 11.8 K/mm3 (1.3-6.7); Neutrophils Percent Auto 67.3 % (45.5-73.1); Platelet Count Result 268 k/mm3 (150-375); Red Cell Distribution Width 14.2 % (11.5-14.5); White Blood Count 17.6 K/mm3 (4.5-10.0)
[2023-03-28 12:02] LABS: Glucose Point of Care 151 mg/dl (65-105)
[2023-03-28 13:37] VITALS: BP 123/64; PULSE 103; RESP 18; TEMP 36.3; O2SAT 100
--- NOTE | 2023-03-28 16:14 | PM.DS ---
DS: Admitting Diagnosis Discharge Date March 28, 2023 Admitting Diagnosis Bilateral lower abdominal pain with leukocytosis and history of pelvic abscesses. DS: Discharge Diagnosis Discharge Diagnosis (1) Bilateral lower abdominal pain: Code(s): R10.31 - Right lower quadrant pain; R10.32 - Left lower quadrant pain Status: Acute Assessment and Plan: Abdominal pain has improved. CT scan has showed no evidence of significant large abdominal pelvic abscess. No ongoing perforation from the colon. CT scan with IV, oral, and rectal contrast showing no evidence perforation. Pain is gradually improved with IV antibiotics. Recommend that she can outpatient colonoscopy to evaluate for any possible colitis or other pathology. (2) Leukocytosis: Qualifiers: Leukocytosis type: bandemia Qualified Code(s): D72.825 - Bandemia Code(s): D72.829 - Elevated white blood cell count, unspecified Status: Acute Assessment and Plan: Gradually improving and then the 17,000. She has been afebrile. Patient will be discharged home on the a and extended course of oral antibiotics to include Flagyl and Cipro. She was given information to contact Dr. Chandler to get a colonoscopy performed (3) History of abdominal abscess: Code(s): Z87.898 - Personal history of other specified conditions Status: Acute Assessment and Plan: Abscess has gradually been improving on multiple serial CT scans. Is now less than 3cm. Continue observation. DS: Summary Hospital Course Hospital Course: The patient was initially seen in the office in complaining of having worsening bilateral lower abdominal pain 07/20. She stated she was having loose foul-smelling stools which were nonbloody. She was in the emergency room earlier in the week at which time a CT scan was performed showing interval improvement of a small abdominal abscess. 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 She previously was discharged on some oral antibiotics which she tolerated well and the pain and infection seemed to be well managed. However when she stops the antibiotics about a week later she started having worsening lower abdominal pain again. White blood cell count in the emergency room was about 18,[address] scan at that time showed interval improvement of the abscess and no other pathology of the bowel. She was discharged from the emergency room to go home. Because she was not improving she was admitted to the hospital for further workup for continued abdominal pain and treatment for leukocytosis. She is admitted to med/surge floor and signed on Zosyn for IV antibiotics. She was initially kept NPO and started on IV fluids. She was given Dilaudid for IV pain medication and had GI prophylaxis and DVT prophylaxis. CT scan the abdomen pelvis with oral, IV, and rectal contrast was performed. This showed no evidence of contrast leak from the colon, no evidence of small bowel obstruction or colonic obstruction, and again some interval improvement of the small abdominal abscess down to 2.8cm. No thickening of the bowel to suggest colitis was noted. [place] [address]. Hospitalists was consult to help manage the patient is diabetes and other medical conditions. She was then advanced to full liquids and advanced to regular diet without difficulty. Loose stools improved while she was in the hospital and C. diff toxin was negative. Will viral panel to include influenza and COVID were negative. No evidence of pneumonia, UTI, or DVT was noted to suggest a reason for her leukocytosis. An echocardiogram was performed showing of cardiac vegetations. She was eventually switched over to oral pain medications which controlled her pain which gradually improved. She was tolerating regular diet and had been afe
[2023-03-28 17:00] LABS: Glucose Point of Care 161 mg/dl (65-105)
== END 2023-03-28 19:12 | disposition home or self-care (01) ==
PROVIDERS: Internal Medicine; Nurse Practitioner Family; Student in an Organized Health Care Education/Training Program; Admitting Provider Surgery; PCP Family Medicine; Visit Provider Surgery
DX: R10.31 Right lower quadrant pain (principal); R10.32 Left lower quadrant pain; D72.829 Elevated white blood cell count, unspecified; Z87.898 Personal history of other specified conditions; R19.5 Other fecal abnormalities; F41.9 Anxiety disorder, unspecified; F32.A Depression, unspecified; K21.9 Gastro-esophageal reflux disease without esophagitis; G43.909 Migraine, unspecified, not intractable, without status migrainosus; E11.65 Type 2 diabetes mellitus with hyperglycemia; Z20.822 Contact with and (suspected) exposure to COVID-19; I10 Essential (primary) hypertension; N20.0 Calculus of kidney; E66.2 Morbid (severe) obesity with alveolar hypoventilation; Z68.43 Body mass index [BMI] 50.0-59.9, adult; F43.10 Post-traumatic stress disorder, unspecified; Z86.73 Personal history of transient ischemic attack (TIA), and cerebral infarction without residual deficits; E28.2 Polycystic ovarian syndrome; F17.210 Nicotine dependence, cigarettes, uncomplicated; F10.90 Alcohol use, unspecified, uncomplicated; Z86.16 Personal history of COVID-19; Z79.85 Long-term (current) use of injectable non-insulin antidiabetic drugs; Z79.84 Long term (current) use of oral hypoglycemic drugs; Z79.4 Long term (current) use of insulin; Z79.51 Long term (current) use of inhaled steroids; Z79.52 Long term (current) use of systemic steroids; Z79.899 Other long term (current) drug therapy
CPT/HCPCS: 36415; 71045; 74177; 80048; 80053; 81001; 82948; 83036; 83605; 84145; 84703; 85025; 86140; 87040; 87086; 87088; 87493; 87637; 96361; 96365; 96366; 96367; 96375; A9270; C9113; G0378; G0379; J0131; J0744; J1170; J1815; J2543; J7030; Q9967

== ENCOUNTER 2023-03-31 09:32 | Emergency (ER) | payer OTHER, MEDICAID, SELFPAY ==
--- NOTE | ~2023-03-31 | CT_ITS ---
EXAMINATION: CT abdomen pelvis w con DATE: 03/31/2023 11:51 INDICATION: Abdominal pain and nausea. TECHNIQUE: Computed tomography (CT) of the abdomen and pelvis was performed with 100 mL Omnipaque 350 intravenous contrast. Automated exposure control and iterative reconstruction technique were employe d. The dose-length product was 1644.92 mGy-cm. COMPARISON: CT abdomen and pelvis 03/25/2023 FINDINGS: The visualized portions of the lung bases demonstrate calcified left lung nodules, consiste nt with old granulomatous disease. No pleural effusion. The heart size is normal. No pericardial effu vanita. The liver and spleen are normal. There are changes of cholecystectomy. The pancreas and right a drenal gland are normal. 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 There is cortical thinning of the kidneys. There is a 13 mm cyst of right kidney. There are 2 stones in right kidney with the larger measuring 9 mm. There is a 2 mm stone in left kidney. There a re no dilated loops of bowel. There is a 2.3 x 0.9 x 0.8 cm abscess adjacent to the sigmoid colon. Th e appendix is normal. There are no pathologically enlarged lymph nodes. There is no free intraperiton eal fluid. There is mild thoracic and lumbar spondylosis. IMPRESSION: 1. Stable 2.3 x 0.9 x 0.8 cm abscess adjacent to the sigmoid colon, likely too small to drain. Reviewed, dictated and finalized at location A.
--- NOTE | ~2023-03-31 | US_ITS ---
EXAMINATION: US pelvic complete w TV DATE: 03/31/2023 14:43 INDICATION: Lower abdominal pain Comparison:11/11/2019 TECHNIQUE: Multiple transabdominal and endovaginal sonographic images of the pelvis performed. FINDINGS: Study limited by patient body habitus. The uterus measures 10.2 x 4.1 x 5.4 cm. The endomet rial complex measures 3 mm. The ovaries are not visualized. There is no free fluid in the pelvis. There are no abnormal masses s een on either side. IMPRESSION: 1. Unremarkable pelvic ultrasound. Reviewed, dictated and finalized at location B.
[2023-03-31 09:33] VITALS: BP 121/74; PULSE 104; RESP 18; TEMP 36.3; O2SAT 100
[2023-03-31 09:56] LABS: Basophils Absolute Auto 0.1 K/mm3 (0.0-0.1); Basophils Percent Auto 0.4 % (0.2-1.2); Eosinophils Absolute Auto 0.1 K/mm3 (0-0.3); Eosinophils Percent Auto 0.7 % (0-4.4); Hematocrit 48.8 % (37.0-47.0); Hemoglobin 15.5 g/dL (12.0-15.0); Immature Granulocyte Percent A 1.1 % (0-0.5); Lymphocytes Absolute Auto 3.38 K/mm3 (0.9-3.2); Lymphocytes Percent Auto 18.3 % (18.3-44.2); Mean Corpuscular HGB Conc 31.8 g/dl (32-36); Mean Corpuscular Hemoglobin 29.1 pg (26-34); Mean Corpuscular Volume 91.6 fl (80-100); Monocytes Absolute Auto 1.4 K/mm3 (0.1-0.6); Monocytes Percent Auto 7.4 % (2.6-8.5); Neutrophils Absolute Auto 13.3 K/mm3 (1.3-6.7); Neutrophils Percent Auto 72.1 % (45.5-73.1); Platelet Count Result 317 k/mm3 (150-375); Red Blood Count 5.33 M/mm3 (4.2-5.4); Red Cell Distribution Width 14.5 % (11.5-14.5); White Blood Count 18.4 K/mm3 (4.5-10.0)
[2023-03-31 10:08] LABS: Alanine Aminotransferase 38 U/L (6-35); Albumin Level 4.4 g/dL (3.5-5.1); Alkaline Phosphatase 51 U/L (38-126); Anion Gap 12 mmol/L (8-16); Aspartate Amino Transferase 32 U/L (14-36); Bilirubin,Total 0.9 mg/dL (0.2-1.3); Blood Urea Nitrogen 7 mg/dL (7-17); Calcium 8.8 mg/dL (8.4-10.2); Carbon Dioxide 23 mmol/L (22-30); Chloride 101 mmol/L (98-107); Estimated CRCL calculation 130 ml/min; Estimated Glomerular Filt Rate > 60; Glucose 231 mg/dL (65-110); Lipase 171 U/L (23-300); Potassium 3.9 mmol/L (3.4-5.0); Sodium 136 mmol/L (137-145)
--- NOTE | 2023-03-31 10:16 | ED.ABDPAIN ---
HPI - Abdominal Pain General Chief Complaint: Abdominal Pain Stated Complaint: abd pain Time Seen by Provider: 03/31/23 09:49 Source: patient and old records reviewed Mode of arrival: ambulatory Limitations: no limitations History of Present Illness HPI narrative: Patient is a 37 y/o female who presents to the ED with c/o lower abdominal pain. Patient reports that she had gynecologic surgery in December and sustained a bowel perforation at that time. She has been dealing with an intra-abdominal abscess thought to be related. She was a direct admission under Dr. Tolliver with general surgery last Friday. Per records, abscess decreased in size with interval CT scans. No persistent bowel perforation was noted. She did not require further surgical intervention. She was given IV antibiotics during hospitalization and discharged on Cipro and Flagyl. Advised to follow-up with Dr. Chandler for potential colonoscopy to r/o IBD type picture. Patient reports she did not feel well at the time of discharge. Over the weekend she has had persistent lower abdominal pain, which became worse this morning. She reports this is the same pain she has had since Dec. Patient also became very nauseous this morning, which prompted her return. She has been taking antibiotics as prescribed. Denies any fever. Denies urinary symptoms, vaginal bleeding. Denies diarrhea or constipation. Denies rectal bleeding or melena. Related Data Home Medications Medication Instructions Recorded Confirmed hydroxyzine pamoate 25 mg capsule 25 mg PO TID PRN Anxiety 09/21/19 03/25/23 aripiprazole 20 mg tablet 20 mg PO DAILY 07/18/20 03/25/23 desvenlafaxine succinate 100 mg 100 mg PO DAILY 07/18/20 03/25/23 tablet,extended release 24 hr semaglutide 2 mg/dose (8 mg/3 mL) 2 mg subcut WEEKLY 10/24/22 03/25/23 subcutaneous pen injector (Ozempic) fluconazole 150 mg tablet 150 mg PO WEEKLY 12/10/22 03/25/23 blood sugar diagnostic (OneTouch 02/05/23 03/25/23 Verio test strips) rimegepant 75 mg disintegrating 75 mg PO DAILY 03/25/23 03/25/23 tablet (Nurtec ODT) Allergies Allergy/AdvReac Type Severity Reaction Status Date / Time clindamycin Allergy Mild Hives Verified 03/25/23 09:26 Sulfa (Sulfonamide Allergy Unknown Hives Verified 03/25/23 09:26 Antibiotics) Review of Systems Review of Systems: CONSTITUTIONAL: Denies fever, chills, or sweats. CARDIOVASCULAR: Denies chest pain. RESPIRATORY: Denies dyspnea. GASTROINTESTINAL: See HPI. GENITOURINARY: Denies vaginal bleeding, dysuria, or hematuria. SKIN: Denies rash or itching. MUSCULOSKELETAL: Denies back pain, joint pain, or myalgia. All systems reviewed & are unremarkable except as noted in HPI and below PMFSH Past Medical History Medical History Acute bronchitis Allergies Anxiety Change in bowel habit Chest wall syndrome Depression Seeing psychiatry Diarrhea Dyspnea Eczema Elbow fracture, right Flatulence, eructation and gas pain GERD (gastroesophageal reflux disease) Headache, migraine Hyperlipidemia associated with type 2 diabetes mellitus Hypertension Hypoventilation associated with obesity Left ureteral stone Leg fracture, left Migraine Seeing neurology KAYLEE (obstructive sleep apnea) PCOS (polycystic ovarian syndrome) Pleuritic chest pain Pneumonia due to COVID-19 virus Post-operative complication PTSD (post-traumatic stress disorder) TIA (transient ischemic attack) Type 2 diabetes mellitus Ureter obstruction UTI (urinary tract infection) Vaginal bleeding Wrist fracture, bilateral Surgical History Surgical History H/O laparoscopy laparoscopic extensive lysis of adhesions/hysteroscopy/ polypectomy/dilatation curettage History of lithotripsy History of removal of cyst Hx of cholecystectomy Family History Family History (Reviewed 03/25/23 @ 13:18 by Isi Hollis
[2023-03-31 10:50] LABS: Appearance Urine Cloudy (Clear); Bacteria Urine Rare /hpf; Bilirubin Urine Negative (Negative); Blood Urine 3+ (Negative); Glucose Urine UA 3+ mg/dL (Negative); Ketones Urine Negative (Negative); Leukocyte Esterase Ur Negative LEU/UL (Negative); Need Manual Microscopic Reviewed; Nitrate Urine Negative (Negative); Non Pathogenic Casts 0-2; Protein Urine Trace mg/dL (Negative); RBC Urine >100 /hpf (0-2); Specific Grav Ur 1.026 (1.001-1.035); Squamous Epithelial Cell Urine Many /hpf (Few); Urobilinogen Urine 0.2 mg/dL (<2.0); pH Urine 7.5 (5.0-9.0)
[2023-03-31 10:55] LABS: Color Urine Light Red (Yellow)
[2023-03-31 10:56] LABS: Add Urine Microscopic? YES
[2023-03-31] MEDS: MORPHINE SULFATE (*CRX) 4 MG/ML INJ IV PUSH ×2 (11:27→14:17)
[2023-03-31] MEDS: ONDANSETRON INJ 4 MG/2 ML VIAL IV PUSH (11:27)
[2023-03-31] MEDS: SODIUM CHLORIDE 0.9% IV 1,000 ML 999 ML IV CONT ×2 (11:28→14:43)
[2023-03-31 11:36] LABS: Lactic Acid Reflex 2.2 mmol/L (0.7-2.0)
[2023-03-31 14:24] LABS: Reflex Lactic Acid Yes or No Add Lactic
[2023-03-31] MEDS: DICYCLOMINE HCL 10 MG CAPSULE 20 MG PO (16:30)
[2023-03-31] MEDS: ACETAMINOPHEN 500 MG TABLET 1000 MG PO (16:30)
[2023-03-31 16:39] LABS: CRP 1.9 mg/dL (<1.0)
[2023-03-31 17:10] LABS: Erythrocyte Sedimentation Rate 21 mm/hr (0-20)
[2023-03-31 18:41] VITALS: BP 125/80; PULSE 72; RESP 16; O2SAT 100
== END 2023-03-31 18:41 | disposition home or self-care (01) ==
PROVIDERS: Emergency Medicine; Emergency Provider Physician Assistant; PCP Family Medicine
DX: K65.1 Peritoneal abscess (principal); R10.31 Right lower quadrant pain; R10.32 Left lower quadrant pain; D72.829 Elevated white blood cell count, unspecified; F41.9 Anxiety disorder, unspecified; F32.A Depression, unspecified; K21.9 Gastro-esophageal reflux disease without esophagitis; E11.9 Type 2 diabetes mellitus without complications; G47.30 Sleep apnea, unspecified
CPT/HCPCS: 36415; 74177; 76830; 76856; 80053; 81001; 81025; 83605; 83690; 85025; 85652; 86140; 87086; 87088; 96361; 96374; 96375; 96376; 99284; A9270; J2270; J2405; J7030; Q9967

== ENCOUNTER 2023-04-01 09:15 | Outpatient (RCR) | payer OTHER, MEDICAID, SELFPAY | END 2023-04-21 12:24 | disposition home or self-care (01) | LOC: ANHDMC 09:15 | PROVIDERS: PCP Family Medicine; Visit Provider Nurse Practitioner Family | DX: E11.9 Type 2 diabetes mellitus without complications (principal); Z71.89 Other specified counseling | CPT/HCPCS: G0108 ==

== ENCOUNTER 2023-07-16 11:25 | Emergency (ER) | payer OTHER, MEDICAID, SELFPAY ==
[2023-07-16 11:28] VITALS: BP 131/75; PULSE 88; RESP 22; TEMP 37; O2SAT 99
--- NOTE | 2023-07-16 11:28 | ED.URI ---
HPI - URI/Sore Throat General Chief Complaint: Upper Respiratory Infection Stated Complaint: cough/ears Time Seen by Provider: 07/16/23 11:27 Source: patient Mode of arrival: ambulatory Limitations: no limitations History of Present Illness HPI Narrative: Angela is a 37-year-old female patient presenting to the clinic today with complaints of cough and bilateral ear pain. She reports cough is nonproductive. Has been going on for possibly 3-4 days. She denies any fever, chills, or body aches. She reports no shortness of breath or sore throat. MD elicited complaint: cough, nasal congestion and other (ear pain) Related Data Home Medications Medication Instructions Recorded Confirmed hydroxyzine pamoate 25 mg capsule 25 mg PO TID PRN Anxiety 09/21/19 07/16/23 aripiprazole 20 mg tablet 20 mg PO DAILY 07/18/20 07/16/23 desvenlafaxine succinate 100 mg 100 mg PO DAILY 07/18/20 07/16/23 tablet,extended release 24 hr semaglutide 2 mg/dose (8 mg/3 mL) 2 mg subcut WEEKLY 10/24/22 07/16/23 subcutaneous pen injector (Ozempic) fluconazole 150 mg tablet 150 mg PO WEEKLY 12/10/22 07/16/23 blood sugar diagnostic (OneTouch 02/05/23 07/16/23 Verio test strips) rimegepant 75 mg disintegrating 75 mg PO ONCE 07/03/23 07/16/23 tablet (Nurtec ODT) ubrogepant 100 mg tablet (Ubrelvy) 100 mg PO ONCE 07/03/23 07/16/23 Allergies Allergy/AdvReac Type Severity Reaction Status Date / Time clindamycin Allergy Intermediate Hives Verified 07/16/23 11:39 Sulfa (Sulfonamide Allergy Intermediate Hives Verified 07/16/23 11:39 Antibiotics) Review of Systems Review of Systems: Pertinent positives per HPI. Patient denies any fever, chills, rash, headache, visual changes, dizziness, shortness of breath, chest pain, palpitations, nausea, vomiting, diarrhea, constipation, abdominal pain, or any urinary issues. PMFSH Past Medical History Medical History Acute bronchitis Allergies Anxiety Change in bowel habit Chest wall syndrome Depression Seeing psychiatry Diarrhea Dyspnea Eczema Elbow fracture, right Flatulence, eructation and gas pain GERD (gastroesophageal reflux disease) Headache, migraine Hyperlipidemia associated with type 2 diabetes mellitus Hypertension Hypoventilation associated with obesity Left ureteral stone Leg fracture, left Migraine Seeing neurology KAYLEE (obstructive sleep apnea) PCOS (polycystic ovarian syndrome) Pleuritic chest pain Pneumonia due to COVID-19 virus Post-operative complication PTSD (post-traumatic stress disorder) TIA (transient ischemic attack) Type 2 diabetes mellitus Ureter obstruction UTI (urinary tract infection) Vaginal bleeding Wrist fracture, bilateral Surgical History Surgical History H/O laparoscopy laparoscopic extensive lysis of adhesions/hysteroscopy/ polypectomy/dilatation curettage History of lithotripsy History of removal of cyst Hx of cholecystectomy Family History Family History Father Diabetes mellitus Hypertension Family history of elevated blood lipids Grandparent Diabetes mellitus Family history of coronary artery disease Mother Hypertension Other Cancer Cerebrovascular accident Depression Social History Social History Social History: Angela is very confident filling out medical forms. In the last 12 months she has not received assistance from an organization or program. The patient is a current smoker. She is single and has No children . She works at [employer] and help at home . She drinks alcohol socially. . She lives alone. Code status full code Smoking packs per day: 0.15 Smoking cigarettes per day: 3.0 Years smoked: 2 Smoking pack-years: 0.30 Smoking status: Former smoker Tobacco type: c
== END 2023-07-16 12:13 | disposition home or self-care (01) ==
PROVIDERS: Emergency Provider Nurse Practitioner Family; PCP Family Medicine
DX: J06.9 Acute upper respiratory infection, unspecified (principal); H69.93 Unspecified Eustachian tube disorder, bilateral; Z20.822 Contact with and (suspected) exposure to COVID-19; K21.9 Gastro-esophageal reflux disease without esophagitis; E78.5 Hyperlipidemia, unspecified; E11.9 Type 2 diabetes mellitus without complications; E28.2 Polycystic ovarian syndrome; Z86.73 Personal history of transient ischemic attack (TIA), and cerebral infarction without residual deficits; F41.9 Anxiety disorder, unspecified; F32.A Depression, unspecified
CPT/HCPCS: 87426; 99213; C9803; G0463

== ENCOUNTER 2023-07-31 11:38 | Emergency (ER) | payer OTHER, MEDICAID, SELFPAY ==
--- NOTE | ~2023-07-31 | XR_ITS ---
EXAMINATION: XR chest 2V DATE: 07/31/2023 12:09 INDICATION: Cough and congestion TECHNIQUE: Frontal and lateral views of the chest are obtained COMPARISON: 03/26/2023 FINDINGS: The lungs are free of acute opacities. No pleural effusion or pneumothorax. The cardiomedia stinal silhouette is normal. There is mild thoracic spondylosis. IMPRESSION: 1. No acute cardiopulmonary abnormality. Reviewed, dictated and finalized at [facility].
[2023-07-31 11:48] VITALS: BP 130/75; PULSE 96; RESP 18; TEMP 37; O2SAT 96
--- NOTE | 2023-07-31 11:55 | ED.URI ---
HPI - URI/Sore Throat General Chief Complaint: Upper Respiratory Infection Stated Complaint: Cough/Ear Pain Source: patient and RN notes reviewed History of Present Illness HPI Narrative: 37 yo F presents to urgent care with complaints of continuous cough x 2 weeks. Pt states she was seen here 2 weeks ago for this and her ear pain which is improving and took all of her medicine without relief. Pt was placed on steroids, Tessalon Perles, and Mucinex. Pt states the cough is worse at nighttime and she will have SOB with her coughing fits. Pt states she has left upper chest pain when she coughs. Pt denies any fevers, chills, N/V/D, sore throat, or other symptoms. Related Data Home Medications Medication Instructions Recorded Confirmed hydroxyzine pamoate 25 mg capsule 25 mg PO TID PRN Anxiety 09/21/19 07/31/23 aripiprazole 20 mg tablet 20 mg PO DAILY 07/18/20 07/31/23 desvenlafaxine succinate 100 mg 100 mg PO DAILY 07/18/20 07/31/23 tablet,extended release 24 hr semaglutide 2 mg/dose (8 mg/3 mL) 2 mg subcut WEEKLY 10/24/22 07/31/23 subcutaneous pen injector (Ozempic) fluconazole 150 mg tablet 150 mg PO WEEKLY 12/10/22 07/31/23 blood sugar diagnostic (OneTouch 02/05/23 07/16/23 Verio test strips) rimegepant 75 mg disintegrating 75 mg PO ONCE 07/03/23 07/31/23 tablet (Nurtec ODT) ubrogepant 100 mg tablet (Ubrelvy) 100 mg PO ONCE 07/03/23 07/31/23 Allergies Allergy/AdvReac Type Severity Reaction Status Date / Time clindamycin Allergy Intermediate Hives Verified 07/31/23 11:58 Sulfa (Sulfonamide Allergy Intermediate Hives Verified 07/31/23 11:58 Antibiotics) Review of Systems Review of Systems: Pertinent positives and pertinent negatives per HPI. [facility] Past Medical History Medical History Acute bronchitis Allergies Anxiety Change in bowel habit Chest wall syndrome Depression Seeing psychiatry Diarrhea Dyspnea Eczema Elbow fracture, right Flatulence, eructation and gas pain GERD (gastroesophageal reflux disease) Headache, migraine Hyperlipidemia associated with type 2 diabetes mellitus Hypertension Hypoventilation associated with obesity Left ureteral stone Leg fracture, left Migraine Seeing neurology KAYLEE (obstructive sleep apnea) PCOS (polycystic ovarian syndrome) Pleuritic chest pain Pneumonia due to COVID-19 virus Post-operative complication PTSD (post-traumatic stress disorder) TIA (transient ischemic attack) Type 2 diabetes mellitus Ureter obstruction UTI (urinary tract infection) Vaginal bleeding Wrist fracture, bilateral Surgical History Surgical History H/O laparoscopy laparoscopic extensive lysis of adhesions/hysteroscopy/ polypectomy/dilatation curettage History of lithotripsy History of removal of cyst Hx of cholecystectomy Family History Family History Father Diabetes mellitus Hypertension Family history of elevated blood lipids Grandparent Diabetes mellitus Family history of coronary artery disease Mother Hypertension Other Cancer Cerebrovascular accident Depression Social History Social History Social History: Angela is very confident filling out medical forms. In the last 12 months she has not received assistance from an organization or program. The patient is a current smoker. She is single and has No children . She works at [employer] and help at home . She drinks alcohol socially. . She lives alone. 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
== END 2023-07-31 13:16 | disposition home or self-care (01) ==
PROVIDERS: Emergency Provider Nurse Practitioner Family; PCP Family Medicine
DX: J40 Bronchitis, not specified as acute or chronic (principal); I10 Essential (primary) hypertension; E78.5 Hyperlipidemia, unspecified; E11.9 Type 2 diabetes mellitus without complications; Z86.73 Personal history of transient ischemic attack (TIA), and cerebral infarction without residual deficits; Z79.899 Other long term (current) drug therapy
CPT/HCPCS: 71046; 99213; G0463

== ENCOUNTER 2023-08-20 12:17 | Outpatient (CLI) | payer OTHER, MEDICAID, SELFPAY ==
[2023-08-20 13:18] LABS: Influenza A QL RT-PCR Negative (Negative); Influenza B QL RT-PCR Negative (Negative); RSV RNA, RT-PCR Negative (Negative); SARS-CoV-2 RNA PCR Negative (Negative)
== END 2023-08-20 12:18 | disposition home or self-care (01) ==
LOC: ANHLAB 12:18
PROVIDERS: PCP Family Medicine; Visit Provider Physician Assistant Medical
DX: R06.00 Dyspnea, unspecified (principal); R43.0 Anosmia; R43.2 Parageusia; Z20.822 Contact with and (suspected) exposure to COVID-19
CPT/HCPCS: 87637

== ENCOUNTER 2023-09-01 21:37 | Emergency (ER) | payer OTHER, MEDICAID, SELFPAY ==
--- NOTE | ~2023-09-01 | CT_ITS ---
Non-contrast CT scan of the Abdomen and Pelvis Clinical indication: Flank pain Technique: 2.5 mm axial scans were obtained through the abdomen and pelvis without intravenous or or al contrast. Dose reduction technique was used on this scan by utilizing automated exposure control a nd iterative reconstruction technique. The dose-length product (DLP) was 2196.68 mGy-cm. COMPARISON: 03/31/2023 Findings: Images through the lung bases reveal no abnormalities. Bilateral nonobstructing renal stones are present, largest near the right renal pelvis measuring 1 cm in diameter. No ureteral stone or hydronephrosis on either side. The liver, spleen, pancreas, and adrenals appear normal. Cholecystectomy clips are present. There is no aortic aneurysm. There is no evidence of bowel obstruction. Images through the pelvis were performed. There is no evidence of ascites or lymphadenopathy. Urinary bladder unremarkable. Probable 3.5 cm right ovarian cyst. Impression: Bilateral nonobstructing renal calculi, as detailed above. 3.5 cm right ovarian cyst. Reviewed, dictated and finalized at [facility]. Impression: Bilateral nonobstructing renal calculi, as detailed above. 3.5 cm right ovarian cyst.
[2023-09-01 21:46] VITALS: BP 139/90; PULSE 110; RESP 20; TEMP 36.2; O2SAT 97
[2023-09-01 22:20] LABS: Basophils Absolute Auto 0.1 K/mm3 (0.0-0.1); Basophils Percent Auto 0.4 % (0.2-1.2); Eosinophils Absolute Auto 0.3 K/mm3 (0-0.3); Eosinophils Percent Auto 1.6 % (0-4.4); Hemoglobin 14.9 g/dL (12.0-15.0); Immature Granulocyte Absolute 0.28 K/mm3 (0.00-0.031); Immature Granulocyte Percent A 1.5 % (0-0.5); Lymphocytes Absolute Auto 3.76 K/mm3 (0.9-3.2); Mean Corpuscular HGB Conc 31.7 g/dl (32-36); Mean Corpuscular Hemoglobin 29.9 pg (26-34); Mean Corpuscular Volume 94.2 fl (80-100); Mean Platelet Volume 10.5 fl (7.4-10.4); Monocytes Absolute Auto 1.7 K/mm3 (0.1-0.6); Monocytes Percent Auto 8.9 % (2.6-8.5); Neutrophils Absolute Auto 12.7 K/mm3 (1.3-6.7); Neutrophils Percent Auto 67.6 % (45.5-73.1); Platelet Count Result 304 k/mm3 (150-375); Red Blood Count 4.99 M/mm3 (4.2-5.4); Red Cell Distribution Width 14.6 % (11.5-14.5); White Blood Count 18.8 K/mm3 (4.5-10.0)
[2023-09-01 22:30] LABS: Alanine Aminotransferase 22 U/L (6-35); Albumin Level 3.6 g/dL (3.5-5.1); Alkaline Phosphatase 51 U/L (38-126); Anion Gap 10 mmol/L (8-16); Aspartate Amino Transferase 25 U/L (14-36); Bilirubin,Total 0.6 mg/dL (0.2-1.3); Blood Urea Nitrogen 10 mg/dL (7-17); Calcium 8.8 mg/dL (8.4-10.2); Carbon Dioxide 21 mmol/L (22-30); Chloride 104 mmol/L (98-107); Estimated CRCL calculation 104 ml/min; Estimated Glomerular Filt Rate > 60; Glucose 273 mg/dL (65-110); Potassium 4.1 mmol/L (3.4-5.0); Sodium 135 mmol/L (137-145)
[2023-09-01 22:36] LABS: Appearance Urine Clear (Clear); Bacteria Urine None Seen /hpf; Bilirubin Urine Negative (Negative); Blood Urine 2+ (Negative); Color Urine Yellow (Yellow); Glucose Urine UA 3+ mg/dL (Negative); Ketones Urine Negative (Negative); Leukocyte Esterase Ur Negative LEU/UL (Negative); Need Manual Microscopic Reviewed; Nitrate Urine Negative (Negative); Non Pathogenic Casts 0-2; Protein Urine Negative (Negative); RBC Urine 51-100 /hpf (0-2); Specific Grav Ur 1.031 (1.001-1.035); Squamous Epithelial Cell Urine None seen /hpf (Few); Urobilinogen Urine 0.2 mg/dL (<2.0); WBC Urine 0-5 /hpf; pH Urine 6.5 (5.0-9.0)
[2023-09-01 22:37] LABS: Add Urine Microscopic? YES
[2023-09-02 00:11] VITALS: BP 118/74; PULSE 104; RESP 15; O2SAT 100
[2023-09-02 00:42] LABS: Pregnancy On Board Control Positive; Urine Pregnancy Test Negative
[2023-09-02] MEDS: MORPHINE SULFATE (*CRX) 4 MG/ML INJ IV PUSH (00:43)
[2023-09-02 00:44] LABS: Lipase 155 U/L (23-300)
[2023-09-02] MEDS: ONDANSETRON INJ 4 MG/2 ML VIAL IV PUSH ×2 (00:44→02:52)
[2023-09-02] MEDS: SODIUM CHLORIDE 0.9% IV 1,000 ML 999 ML IV CONT (00:44)
--- NOTE | 2023-09-02 00:52 | ED.GENADULT ---
HPI - General Adult General Chief complaint: Back Pain/Injury Stated complaint: back pain Time Seen by Provider: 09/02/23 00:16 History of Present Illness HPI narrative: Patient is a 37-year-old female who presents the emergency department with chief complaint of right-sided flank pain. The patient reports she has prior history of kidney stones and reports that she started having pain yesterday patient reports the pain is sharp reports not improved by anything. Related Data Home Medications Medication Instructions Recorded Confirmed hydroxyzine pamoate 25 mg capsule 25 mg PO TID PRN Anxiety 09/21/19 08/20/23 aripiprazole 20 mg tablet 20 mg PO DAILY 07/18/20 08/20/23 desvenlafaxine succinate 100 mg 100 mg PO DAILY 07/18/20 08/20/23 tablet,extended release 24 hr semaglutide 2 mg/dose (8 mg/3 mL) 2 mg subcut WEEKLY 10/24/22 08/20/23 subcutaneous pen injector (Ozempic) fluconazole 150 mg tablet 150 mg PO WEEKLY 12/10/22 08/20/23 blood sugar diagnostic (OneTouch 02/05/23 08/20/23 Verio test strips) rimegepant 75 mg disintegrating 75 mg PO ONCE 07/03/23 08/20/23 tablet (Nurtec ODT) ubrogepant 100 mg tablet (Ubrelvy) 100 mg PO ONCE 07/03/23 08/20/23 Allergies Allergy/AdvReac Type Severity Reaction Status Date / Time clindamycin Allergy Intermediate Hives Verified 09/02/23 00:11 Sulfa (Sulfonamide Allergy Intermediate Hives Verified 09/02/23 00:11 Antibiotics) Review of Systems Review of Systems: A 10 system review of systems was completed on the patient and is negative except for what is stated in the HPI. Nursing and ancillary documentation was reviewed. [facility] Past Medical History Medical History Acute bronchitis Allergies Anxiety Change in bowel habit Chest wall syndrome Depression Seeing psychiatry Diarrhea Dyspnea Eczema Elbow fracture, right Flatulence, eructation and gas pain GERD (gastroesophageal reflux disease) Headache, migraine Hyperlipidemia associated with type 2 diabetes mellitus Hypertension Hypoventilation associated with obesity Left ureteral stone Leg fracture, left Migraine Seeing neurology KAYLEE (obstructive sleep apnea) PCOS (polycystic ovarian syndrome) Pleuritic chest pain Pneumonia due to COVID-19 virus Post-operative complication PTSD (post-traumatic stress disorder) TIA (transient ischemic attack) Type 2 diabetes mellitus Ureter obstruction UTI (urinary tract infection) Vaginal bleeding Wrist fracture, bilateral Surgical History Surgical History H/O laparoscopy laparoscopic extensive lysis of adhesions/hysteroscopy/ polypectomy/dilatation curettage History of lithotripsy History of removal of cyst Hx of cholecystectomy Family History Family History Father Diabetes mellitus Hypertension Family history of elevated blood lipids Grandparent Diabetes mellitus Family history of coronary artery disease Mother Hypertension Other Cancer Cerebrovascular accident Depression Social History Social History Social History: Angela is very confident filling out medical forms. In the last 12 months she has not received assistance from an organization or program. The patient is a current smoker. She is single and has No children . She works at [employer] and help at home . She drinks alcohol socially. . She lives alone. 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
[2023-09-02 03:04] VITALS: BP 124/84; PULSE 92; RESP 16; O2SAT 100
== END 2023-09-02 03:05 | disposition home or self-care (01) ==
PROVIDERS: Emergency Provider Emergency Medicine; PCP Family Medicine
DX: R10.9 Unspecified abdominal pain (principal); K21.9 Gastro-esophageal reflux disease without esophagitis; E11.69 Type 2 diabetes mellitus with other specified complication; E78.5 Hyperlipidemia, unspecified; E28.2 Polycystic ovarian syndrome; E66.2 Morbid (severe) obesity with alveolar hypoventilation; Z68.43 Body mass index [BMI] 50.0-59.9, adult; Z87.01 Personal history of pneumonia (recurrent); F32.A Depression, unspecified; F43.10 Post-traumatic stress disorder, unspecified; F41.9 Anxiety disorder, unspecified; Z86.16 Personal history of COVID-19; Z86.73 Personal history of transient ischemic attack (TIA), and cerebral infarction without residual deficits; Z87.440 Personal history of urinary (tract) infections; Z79.84 Long term (current) use of oral hypoglycemic drugs; Z79.4 Long term (current) use of insulin; Z79.85 Long-term (current) use of injectable non-insulin antidiabetic drugs
CPT/HCPCS: 36415; 74176; 80053; 81001; 81025; 83690; 85025; 96361; 96374; 96375; 96376; 99284; J2270; J2405; J7030

== ENCOUNTER 2023-09-11 15:46 | Outpatient (CLI) | payer OTHER, MEDICAID, SELFPAY ==
--- NOTE | ~2023-09-11 | XR_ITS ---
XR abdomen/kub 1V DATE: 09/11/2023 16:18 INDICATION: Nephrolithiasis. History of bilateral kidney stones. TECHNIQUE: AP views of abdomen COMPARISON: 09/11/2023 CT abdomen pelvis FINDINGS: Approximately 7 x 9 mm calcified calculus overlies the proximal right ureter at the L4 leve l. One or more very faint small calcified calculi of the kidneys is suggested. No evidence of bowel obstruction. The psoas shadows are intact. No visceromegaly is detected. The lung bases appear clear. Mild thoracolumbar levoscoliosis. IMPRESSION: Large right proximal ureteral calcified calculus Reviewed, dictated and finalized at [facility]. Reviewed, dictated and finalized at location [facility].
--- NOTE | ~2023-09-11 | CT_ITS ---
EXAMINATION: CT abdomen pelvis wo con DATE: 09/11/2023 16:07 INDICATION: History of kidney stones. Bilateral posterior abdominal pain, worse on the right TECHNIQUE: Computed tomography (CT) of the abdomen and pelvis was performed without intravenous contr ast. Automated exposure control and iterative reconstruction technique were employed. Exam dose: 169 4.08 mGy-cm total exam DLP. COMPARISON: 08/29/2023 CT abdomen FINDINGS: Approximately 8.3 x 9.8 mm obstructing calculus at the right ureteropelvic junction, with m oderately prominent right hydronephrosis, mild right perinephric stranding. Mild bilateral nephrolithiasis again noted. The lung bases are clear other than mild discoid atelectasis or scarring at the base of the lingula. Normal heart size. No pericardial or pleural effusion. Status post cholecystectomy. The liver, spleen, pancreas and right adrenal gland are unremarkable. There is a large fatty lesion of the left adrenal gland, likely adrenal myelolipoma. No renal mass lesion is evident on this limited noncontrast examination. Normal caliber of the abdominal aorta. No intraperitoneal or retroperitoneal or pelvic mass lesion or adenopathy or ascites. No evidence of appendicitis. No bowel obstruction or intraperitoneal free air. The uterus and adnexal areas are unremarkable. Included skeletal structures are unremarkable. IMPRESSION: Obstructing 8.3 x 9.8 mm right ureteropelvic junction calculus with moderately prominent right hydronephrosis Bilateral nephrolithiasis Status post cholecystectomy Left adrenal myelolipoma Reviewed, dictated and finalized at [facility]. Reviewed, dictated and finalized at [facility]. IMPRESSION: Obstructing 8.3 x 9.8 mm right ureteropelvic junction calculus wit h moderately prominent right hydronephrosis Bilateral nephrolithiasis Status post cholecystectomy Left adrenal myelolipoma
== END 2023-09-11 15:47 | disposition home or self-care (01) ==
LOC: ANHIMG 15:47
PROVIDERS: PCP Family Medicine
DX: N20.0 Calculus of kidney (principal); Z90.49 Acquired absence of other specified parts of digestive tract; D35.02 Benign neoplasm of left adrenal gland
CPT/HCPCS: 74018; 74176

== ENCOUNTER 2023-09-12 17:17 | Inpatient (IN) | payer OTHER, MEDICAID, SELFPAY ==
--- NOTE | ~2023-09-12 | XR_ITS ---
EXAMINATION: XR retrograde pyelo w/stent RT DATE: 09/13/2023 14:38 INDICATION: Nephrolithiasis. Cystoscopy and right retrograde pyelogram with right internal ureteral s tent placement TECHNIQUE: 5 fluoroscopic images of the abdomen and pelvis were obtained during procedure performed hoda Tariq. Radiologist was not present for the imaging or procedure. The amount of fluoroscopy time used during this procedure was 0.6 minutes. COMPARISON: CT and KUB dated 09/11/2023 FINDINGS: The 10 mm stone at the right ureteropelvic junction to meet again seen on the cell tuber machine image projecting lateral to the L4 vertebral body. Subsequent images demonstrate the contrast injected in the right ur eter appearing to obstruct the level of the stone. Subsequent image demonstrates passage of a wire be yond the stone into the right kidney and subsequent placement of a right internal ureteral stent with loops formed in the right renal pelvis and bladder. The stone remains in unchanged position at the u reteropelvic junction on the final image. IMPRESSION: 1. Persistent likely obstructing 10 mm stone at the right ureteropelvic junction with placement of a right internal ureteral stent which is in expected position. See procedure note for further detail. Reviewed, dictated and finalized at location [facility]. IMPRESSION: 1. Persistent likely obstructing 10 mm stone at the right ureteropelvic junctio n with placement of a right internal ureteral stent which is in expected positi on. See procedure note for further detail.
--- NOTE | ~2023-09-12 | CT_ITS ---
EXAMINATION: CT abdomen pelvis wo con DATE: 09/17/2023 12:20 INDICATION: Nausea and abdominal pain TECHNIQUE: Computed tomography (CT) of the abdomen and pelvis was performed without intravenous contr ast. The dose-length product (DLP) was 1621.85 mGy-cm. Automated exposure control and iterative recon struction technique were employed. COMPARISON: 09/11/2023 FINDINGS: Minimal dependent atelectasis is present in the lung bases. The heart size is normal. Mcneill es of cholecystectomy are noted. The liver, spleen, pancreas, and right adrenal gland are normal. The re is a 4.8 cm left adrenal mass containing macroscopic fat, consistent with a myelolipoma. A right i nternal ureteral stent coils in the renal pelvis. There is a 9 mm stone adjacent to the proximal sten t. There are two nonobstructing stones of the right kidney measuring 2 mm. There are adjacent 2 mm no nobstructing stones of the interpolar region of the left kidney. No hydronephrosis or hydroureter are identified. No pathologically enlarged abdominal or pelvic lymph nodes are identified. No free intra peritoneal gas or evidence of bowel obstruction. A moderate volume of colonic stool is present. IMPRESSION: 1. Right internal ureteral stent in expected position with 9 mm stone adjacent to the proximal stent. 2. Bilateral nonobstructing nephrolithiasis. Reviewed, dictated and finalized at location [facility]. [employer]
[2023-09-12 19:01] VITALS: BP 134/91; PULSE 114; RESP 16; TEMP 36.6; O2SAT 98
[2023-09-12 22:31] VITALS: BP 129/77; PULSE 100; RESP 20; O2SAT 100
[2023-09-12 22:45] LABS: Basophils Absolute Auto 0.1 K/mm3 (0.0-0.1); Basophils Percent Auto 0.4 % (0.2-1.2); Eosinophils Absolute Auto 0.2 K/mm3 (0-0.3); Eosinophils Percent Auto 0.9 % (0-4.4); Hematocrit 47.3 % (37.0-47.0); Hemoglobin 15.1 g/dL (12.0-15.0); Immature Granulocyte Absolute 0.15 K/mm3 (0.00-0.031); Immature Granulocyte Percent A 0.9 % (0-0.5); Lymphocytes Absolute Auto 3.76 K/mm3 (0.9-3.2); Lymphocytes Percent Auto 21.4 % (18.3-44.2); Mean Corpuscular HGB Conc 31.9 g/dl (32-36); Mean Corpuscular Hemoglobin 29.4 pg (26-34); Mean Corpuscular Volume 92.2 fl (80-100); Monocytes Absolute Auto 1.6 K/mm3 (0.1-0.6); Monocytes Percent Auto 8.9 % (2.6-8.5); Neutrophils Absolute Auto 11.9 K/mm3 (1.3-6.7); Neutrophils Percent Auto 67.5 % (45.5-73.1); Platelet Count Result 258 k/mm3 (150-375); Red Blood Count 5.13 M/mm3 (4.2-5.4); Red Cell Distribution Width 14.3 % (11.5-14.5); White Blood Count 17.6 K/mm3 (4.5-10.0)
[2023-09-12 22:50] LABS: Appearance Urine Clear (Clear); Bacteria Urine None Seen /hpf; Bilirubin Urine Negative (Negative); Blood Urine 2+ (Negative); Color Urine Yellow (Yellow); Glucose Urine UA 3+ mg/dL (Negative); Ketones Urine Negative (Negative); Leukocyte Esterase Ur Negative LEU/UL (Negative); Nitrate Urine Negative (Negative); Non Pathogenic Casts 0-2; Protein Urine Negative (Negative); Specific Grav Ur 1.027 (1.001-1.035); Squamous Epithelial Cell Urine None seen /hpf (Few); Urobilinogen Urine 0.2 mg/dL (<2.0); WBC Urine 0-5 /hpf
[2023-09-12 22:53] LABS: Alanine Aminotransferase 24 U/L (6-35); Alkaline Phosphatase 49 U/L (38-126); Anion Gap 8 mmol/L (8-16); Aspartate Amino Transferase 26 U/L (14-36); Bilirubin,Total 0.9 mg/dL (0.2-1.3); Blood Urea Nitrogen 14 mg/dL (7-17); Calcium 8.9 mg/dL (8.4-10.2); Carbon Dioxide 24 mmol/L (22-30); Chloride 104 mmol/L (98-107); Estimated Glomerular Filt Rate 50; Glucose 180 mg/dL (65-110); Sodium 136 mmol/L (137-145)
[2023-09-12 22:59] LABS: Add Urine Microscopic? YES
[2023-09-12 23:01] VITALS: BP 108/67; PULSE 110; RESP 18; O2SAT 100
[2023-09-12] MEDS: ONDANSETRON INJ 4 MG/2 ML VIAL IV PUSH (23:16)
[2023-09-12] MEDS: MORPHINE SULFATE (*CRX) 4 MG/ML INJ IV PUSH (23:16)
[2023-09-12] MEDS: SODIUM CHLORIDE 0.9% IV 500 ML 999 ML IV CONT (23:16)
--- NOTE | 2023-09-12 23:16 | ED.ABDPAIN ---
HPI - Abdominal Pain General Chief Complaint: Urogenital-Female <Dana Romo PA-C - Last Filed: 09/13/23 01:01> Stated Complaint: kidney stones <DONALD Vergara Last Filed: 09/13/23 01:01> Time Seen by Provider: 09/12/23 21:43 <DONALD Vergara Last Filed: 09/13/23 01:01> Source: patient <DONALD Vergara Last Filed: 09/13/23 01:01> Mode of arrival: ambulatory <DONALD Vergara Last Filed: 09/13/23 01:01> Limitations: no limitations <DONALD Vergara Last Filed: 09/13/23 01:01> History of Present Illness HPI narrative: This is a 37-year-old female that presents to the emergency department for right flank pain. Ongoing over the last week. Reports the pain radiates into her abdomen. She was seen in the ER and then had follow-up with urology. Had an outpatient CT scan yesterday which did show an obstructing kidney stone. She called her urologist and was prompted to be seen in the ER. Reports nausea and hematuria. Denies fevers, vomiting, or dysuria. <Dana Romo PA-C - Last Filed: 09/13/23 01:01> Related Data Home Medications: Home Medications Medication Instructions Recorded Confirmed hydroxyzine pamoate 25 mg capsule 25 mg PO TID PRN Anxiety 09/21/19 09/13/23 aripiprazole 20 mg tablet 20 mg PO DAILY 07/18/20 09/13/23 desvenlafaxine succinate 100 mg 100 mg PO DAILY 07/18/20 09/13/23 tablet,extended release 24 hr insulin aspart U-100 100 unit/mL 6 unit subcut DAILY 09/13/23 09/13/23 (3 mL) subcutaneous pen (Novolog FlexPen U-100 Insulin aspart) lisinopril 5 mg tablet 5 mg PO DAILY 09/13/23 09/13/23 metoprolol succinate 50 mg 50 mg PO DAILY 09/13/23 09/13/23 tablet,extended release 24 hr spironolactone 100 mg tablet 200 mg PO DAILY 09/13/23 09/13/23 tirzepatide 5 mg/0.5 mL 2.5 mg subcut WEEKLY 09/13/23 09/13/23 subcutaneous pen injector (Mounjaro) <Dana Romo PA-C - Last Filed: 09/13/23 01:01> Allergies/Adverse Reactions: Allergies Allergy/AdvReac Type Severity Reaction Status Date / Time clindamycin Allergy Intermediate Hives Verified 09/12/23 21:45 Sulfa (Sulfonamide Allergy Intermediate Hives Verified 09/12/23 21:45 Antibiotics) <Dana Romo PA-C - Last Filed: 09/13/23 01:01> Review of Systems Review of Systems: CONSTITUTIONAL: Denies fever GASTROINTESTINAL: Reports abdominal pain, nausea. Denies vomiting GENITOURINARY: Reports hematuria. Denies dysuria <Dana Romo PA-C - Last Filed: 09/13/23 01:01> All systems reviewed & are unremarkable except as noted in HPI and below <Dana Romo PA-C - Last Filed: 09/13/23 01:01> [facility] Past Medical History Medical History: Medical History Acute bronchitis Allergies Anxiety Change in bowel habit Chest wall syndrome Depression Seeing psychiatry Diarrhea Dyspnea Eczema Elbow fracture, right Flatulence, eructation and gas pain GERD (gastroesophageal reflux disease) Headache, migraine Hyperlipidemia associated with type 2 diabetes mellitus Hypertension Hypoventilation associated with obesity Left ureteral stone Leg fracture, left Migraine Seeing neurology KAYLEE (obstructive sleep apnea) PCOS (polycystic ovarian syndrome) Pleuritic chest pain Pneumonia due to COVID-19 virus Post-operative complication PTSD (post-traumatic stress disorder) TIA (transient ischemic attack) Type 2 diabetes mellitus Ureter obstruction UTI (urinary tract infection) Vaginal bleeding Wrist fracture, bilateral <DONALD Vergara Last Filed: 09/13/23 01:01> Surgical History Surgical History: Surgical History H/O laparoscopy laparoscopic extensive lysis of adhesions/hysteroscopy/ polypectomy/dilatation curettage History of lithotripsy History of removal of cyst Hx of cholecystectomy <YESSY VergaraC
[2023-09-12 23:19] VITALS: BP 123/64; PULSE 108; RESP 17; O2SAT 100
[2023-09-12 23:31] VITALS: BP 119/55; PULSE 105; RESP 20; O2SAT 100
[2023-09-12 23:46] VITALS: BP 118/55; PULSE 102; RESP 19; O2SAT 100
[2023-09-13] VITALS (13 sets, daily range): BP systolic 96–146; BP diastolic 53–77; PULSE 80–104; RESP 14–22; TEMP 36.5–36.9; O2SAT 93–100; BMI 53.3
[2023-09-13] MEDS: MORPHINE SULFATE (*CRX) 4 MG/ML INJ IV PUSH (00:59)
[2023-09-13 01:45] LABS: Glucose Point of Care 166 mg/dl (65-105)
[2023-09-13] MEDS: SODIUM CHLORIDE 0.9% IV 1,000 ML 125 ML IV CONT ×3 (04:24→21:04)
[2023-09-13] MEDS: HYDROmorphone HCL INJ (*CRX) 1 MG/ML SYR 0.5 MG IV PUSH ×3 (05:30→21:02)
--- NOTE | 2023-09-13 07:54 | PM.IMHP ---
H&P: HPI History of Present Illness Date/Time: 09/13/23 07:54 Chief Complaint: abdominal pain with kidney stone Narrative: This is a 37-year-old female with a past medical history of bronchitis, anxiety, depression, GERD, migraine headache, hyperlipidemia, diabetes to, polycystic ovarian syndrome, KAYLEE, PTSD, and TIA. She presented to the emergency room on 09/12 for right-sided flank pain. She states the pain had been going on for over a week and it radiates into her lower abdomen. She previously had been seen in the ER and then had a follow-up with Urology. Yesterday she had a CT scan which did show an obstructing kidney stone and was prompted by her urologist to be seen in the ER. She is reporting abdominal pain, nausea without vomiting, and hematuria. In the ED she had tachycardia upon arrival which normalized after IV fluids. CBC showed a leukocytosis of 17.6. BMP shows an elevation of creatinine to 1.2. UA with RBCs but no evidence of infection. CT of the abdomen and pelvis shows an obstructing 8.3 x 9.8 mm right UPJ calculus. She is being admitted under the Medicine team for pain control, IV hydration and consult with Urology for possible stent placement. On exam she appears uncomfortable. She says that she has a migraine and has requested IV ibuprofen. I reviewed the plan with her to go to surgery today at 2:00 p.m. for cystoscopy with potential stone extraction and ureteral stent placement. She has no questions or concerns at this time for me. Presently she denies dizziness, chest pain, shortness a press nausea, vomiting diarrhea, constipation. She still has right-sided flank pain tracks into her right lower abdomen but it is being controlled with pain medications. Review of Systems Review of Systems: All systems reviewed & are unremarkable except as noted in HPI and below PMFSH Past Medical History Medical History Acute bronchitis Allergies Anxiety Change in bowel habit Chest wall syndrome Depression Seeing psychiatry Diarrhea Dyspnea Eczema Elbow fracture, right Flatulence, eructation and gas pain GERD (gastroesophageal reflux disease) Headache, migraine Hyperlipidemia associated with type 2 diabetes mellitus Hypertension Hypoventilation associated with obesity Left ureteral stone Leg fracture, left Migraine Seeing neurology KAYLEE (obstructive sleep apnea) PCOS (polycystic ovarian syndrome) Pleuritic chest pain Pneumonia due to COVID-19 virus Post-operative complication PTSD (post-traumatic stress disorder) TIA (transient ischemic attack) Type 2 diabetes mellitus Ureter obstruction UTI (urinary tract infection) Vaginal bleeding Wrist fracture, bilateral Surgical History Surgical History H/O laparoscopy laparoscopic extensive lysis of adhesions/hysteroscopy/ polypectomy/dilatation curettage History of lithotripsy History of removal of cyst Hx of cholecystectomy Family History Family History Father Diabetes mellitus Hypertension Family history of elevated blood lipids Grandparent Diabetes mellitus Family history of coronary artery disease Mother Hypertension Other Cancer Cerebrovascular accident Depression Social History Social History Social History: Angela is very confident filling out medical forms. In the last 12 months she has not received assistance from an organization or program. She started vaping 2 weeks ago and prior to that she smoked cigarettes for 1 year. She is single and has No children . 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 She drinks alcohol socially. She lives with her niece and her family. Code status full code Smoking packs per day: 0.15 Smoking cigarettes per day: 3.0 Years smoked: 1 Smoking pack-years:
[2023-09-13 08:37] LABS: Glucose Point of Care 185 mg/dl (65-105)
[2023-09-13] MEDS: DESVENLAFAXINE SUCCINATE 50 MG TAB.ER.24H 100 MG PO (09:10)
[2023-09-13] MEDS: METOPROLOL SUCCINATE EXT REL 50 MG TABCR PO (09:10)
[2023-09-13] MEDS: ATORVASTATIN 10 MG TABLET PO (09:11)
[2023-09-13] MEDS: lisinopriL 5 MG TABLET PO (09:11)
[2023-09-13] MEDS: SPIRONOLACTONE 50 MG TABLET 200 MG PO (09:11)
[2023-09-13] MEDS: PANTOPRAZOLE 40 MG TABLET PO (09:11)
[2023-09-13] MEDS: TOPIRAMATE 25 MG TABLET BY MOUTH (09:11)
[2023-09-13] MEDS: ARIPiprazole 10 MG TABLET 20 MG PO (09:11)
[2023-09-13] MEDS: ONDANSETRON INJ 4 MG/2 ML VIAL IV PUSH (09:15)
--- NOTE | 2023-09-13 11:07 | WPDANESEPP ---
Anes - Eval Pre Procedure Procedure: Cysto, Right ureteral stent Date/Time: 09/13/23 11:07 Surgeon: Lakisha Preop Diagnosis: right proximal ureteral stone Pre Op Diagnosis: kidney stones Patient Data Age: 37 Gender: F Height: 1.7 m Weight: 154.4 kg Last Vital Signs Temp 97.9 F 09/13/23 06:18 Pulse 80 09/13/23 09:10 Resp 16 09/13/23 06:18 BP 127/71 09/13/23 06:18 Pulse Ox 100 09/13/23 06:18 O2 Del Method Room Air 09/13/23 09:25 Allergies Allergy/AdvReac Type Severity Reaction Status Date / Time clindamycin Allergy Intermediate Hives Verified 09/12/23 21:45 Sulfa (Sulfonamide Allergy Intermediate Hives Verified 09/12/23 21:45 Antibiotics) Home Medications Medication Instructions Recorded Confirmed Type hydroxyzine pamoate 25 mg capsule 25 mg PO TID PRN Anxiety 09/21/19 09/13/23 History aripiprazole 20 mg tablet 20 mg PO DAILY 07/18/20 09/13/23 History desvenlafaxine succinate 100 mg 100 mg PO DAILY 07/18/20 09/13/23 History tablet,extended release 24 hr mecobalamin (vitamin B12) 5,000 See Rx Instructions PO .COMPLEX 04/17/22 09/13/23 Rx mcg disintegrating tablet #90 tabs pen needle, diabetic 32 gauge x #100 ea 05/05/22 09/13/23 Rx 1/6 (NovoFine Plus) omeprazole 20 mg capsule,delayed 20 mg PO DAILY #90 caps 01/20/23 09/13/23 Rx release blood sugar diagnostic (OneTouch #400 ea 02/05/23 09/13/23 Rx Verio test strips) lancets 33 gauge (OneTouch Delica #600 ea 02/05/23 09/13/23 Rx Plus Lancet) insulin degludec 200 unit/mL (3 See Rx Instructions .Route 03/18/23 09/13/23 Rx mL) subcutaneous pen (Tresiba .COMPLEX #9 mL FlexTouch U-200 insulin) empagliflozin 25 mg tablet 25 mg PO DAILY #90 tabs 04/17/23 09/13/23 Rx (Jardiance) pen needle, diabetic 32 gauge x #100 ea 05/26/23 09/13/23 Rx (Pen Needle) metformin 1,000 mg tablet 1,000 mg PO BID #180 tabs 06/22/23 09/13/23 Rx ubrogepant 100 mg tablet (Ubrelvy) 100 mg PO ONCE PRN migraine 07/03/23 09/13/23 Rx headache #16 tabs atorvastatin 10 mg tablet 10 mg PO DAILY #90 tabs 07/22/23 09/13/23 Rx topiramate 50 mg tablet See Rx Instructions .Route 08/12/23 09/13/23 Rx .COMPLEX #270 tabs albuterol sulfate 90 mcg/actuation 2 puff inhalation QID PRN 08/15/23 09/13/23 Rx aerosol inhaler shortness of breath or wheezing #8.5 grams ondansetron 4 mg disintegrating 4 mg PO Q8H PRN nausea and 09/02/23 09/13/23 Rx tablet vomiting #10 tabs blood-glucose meter,continuous #1 ea 09/09/23 09/13/23 Rx (Dexcom G6 Production Control Specialist) blood-glucose sensor (Dexcom G6 #9 ea 09/09/23 09/13/23 Rx Sensor device) blood-glucose transmitter (Dexcom #1 ea 09/09/23 09/13/23 Rx G6 Transmitter device) insulin aspart U-100 100 unit/mL 6 unit subcut DAILY 09/13/23 09/13/23 History (3 mL) subcutaneous pen (Novolog FlexPen U-100 Insulin aspart) lisinopril 5 mg tablet 5 mg PO DAILY 09/13/23 09/13/23 History metoprolol succinate 50 mg 50 mg PO DAILY 09/13/23 09/13/23 History tablet,extended release 24 hr spironolactone 100 mg tablet 200 mg PO DAILY 09/13/23 09/13/23 History tirzepatide 5 mg/0.5 mL 2.5 mg subcut WEEKLY 09/13/23 09/13/23 History subcutaneous pen injector (Marshall) Laboratory Tests 09/12/23 09/12/23 09/13/23 22:24 22:25 01:41 WBC 17.6 H K/mm3 (4.5-10.0) RBC 5.13 M/mm3 (4.2-5.4) Hgb 15.1 H g/dL (12.0-15.0) Hct 47.3 H % (37.0-47.0) MCV 92.2 fl (80-100) MCH 29.4 pg (26-34) MCHC 31.9 L g/dl (32-36) RDW 14.3 % (11.5-14.5) Plt Count 258 k/mm3 (150-375) MPV 11.0 H fl (7.4-10.4) Immature Gran % (Auto) 0.9 H % (0-0.5) Neut % (Auto) 67.5 % (45.5-73.1) Lymph % (Auto) 21.4 % (18.3-44.2) Orange % (Auto) 8.9 H % (2.6-8.5) Eos % (Auto) 0.9 % (0-4.4) Baso % (Auto) 0.4 % (0.2-1.2) Lymph # (Auto) 3.76 H K/mm3
[2023-09-13] MEDS: IBUPROFEN IV 800 MG/200 ML 800 MG/200 ML BAG 400 MG IVPB (11:22)
[2023-09-13 12:09] LABS: Glucose Point of Care 174 mg/dl (65-105)
--- NOTE | 2023-09-13 12:56 | WPDURCON ---
Assessment and Plan Assessment and plan (1) Ureterolithiasis: Code(s): N20.1 - Calculus of ureter Status: Acute Assessment and Plan: 9mm right ureter stone with persistent renal colic 07/20 pain - plan for cysto- retrograde and stent placement. we reviewed pertinent risks, benefits, alternatives, nature of procedure and complications in detail, pt understands we are not treating stone today and she will need definite stone treatment with Dr Simons in the future. pt understands stent is temporary and can cause pain, similar to stone pain, additionally if stent is not removed in a prompt time frame it could cause permanent kidney damage. She understands this. Additionally we reviewed damage to tract inability to place stent and need for neph tube by IR. We reviewed anesthesia risks of OK, stroke, DVT, PE, and disability, she is agreeable to proceed, all ? answered in layman terms. Urology Consult Note HPI Date Seen: 09/13/23 Requesting Physician: Renaldo Mcfadden MD Primary Care Provider: Dana Roy MD Consult Narrative Narrative: Angela Duncan is a 37 year old female with hx of stone disease normally sees Dr Simons. She presents to ED with 2 day hx of right sided colicky pain with associated nausea x [address] scan shows right prox 9 mm ureter stone. She denies fevers/chills/hematuria or dysuria. She has had numerous prior stones. She has been NPO. She has elevated wbc of 17. She has had prior stents and lithotripsies. Review of Systems Constitutional: Constitutional: Reports no additional constitutional complaints, Denies fever(s), Denies snoring and Denies weakness Eyes: Eyes: Reports no additional eye complaints ENT: Reports system reviewed and no additional complaints, except as documented, Denies dysphagia, Denies dizziness, Denies dry mouth and Denies ear discharge Respiratory: Respiratory: Reports no additional respiratory complaints, Denies hemoptysis, Denies snoring and Denies wheezing Gastrointestinal: Gastrointestinal: Reports as per HPI, Reports no additional gastrointestinal complaints, Denies dysphagia, Denies loose stools and Denies nausea Genitourinary: Genitourinary: Reports no additional female genitourinary complaints and Reports as per HPI Musculoskeletal: Musculoskeletal: Reports no additional musculoskeletal complaints and Reports as per HPI Integumentary/Breasts: Skin/Breast: Reports system reviewed and no additional complaints, except as docu and Reports as per HPI Neurologic: Reports system reviewed and no additional complaints, except as documented, Reports as per HPI, Denies confusion, Denies dizziness, Denies memory loss and Denies weakness Psychiatric: Psychiatric: Reports no additional psychiatric complaints, Reports as per HPI, Denies confusion, Denies memory loss and Denies mood swings Endocrine: Endocrine: Reports no additional endocrine complaints Hematologic/Lymphatic: Hematologic/Lymphatic: Reports no additional hematologic/lymphatic complaints and Reports as per HPI Allergic/Immunologic: Allergic/Immunologic: Reports no additional allergic/immunologic complaints, Reports as per HPI and Denies wheezing PMFSH Past Medical History Medical History Acute bronchitis Allergies Anxiety Change in bowel habit Chest wall syndrome Depression Seeing psychiatry Diarrhea Dyspnea Eczema Elbow fracture, right Flatulence, eructation and gas pain GERD (gastroesophageal reflux disease) Headache, migraine Hyperlipidemia associated with type 2 diabetes mellitus Hypertension Hypoventilation associated with obesity Left ureteral stone Leg fracture, left Migraine Seeing neurology KAYLEE (obstructive sleep apnea) PCOS (polycystic ovarian syndrome) Pleuritic chest pain Pneumonia due to COVID-19 virus Post-operative complication PTSD (post-traumatic stress disorder) TIA (transient ischemic attack) Typ
--- NOTE | 2023-09-13 14:09 | P.PNAN_ITS ---
Anes - Eval Final PreProcedure Day of Procedure 09/13/23 14:09 Patient weight: super morbidly obese Heart: regular rate and rhythm Lungs: clear to auscultation Airway: Mallampati scale class II Neurological: alert and oriented Last oral intake: >/= 8 hours ASA classification: III Emergent: no Anesthetic plan: proceed Anesthesia type and monitoring: general LMA and standard monitoring Results Review: All pre-operative results and documents have been reviewed as part of the pre- operative evaluation. Informed Consent: The patient's anesthetic plan and its attendant risks and benefits were discus sed with the patient/family/POA. Questions were solicited and answers provided to the satisfaction of the patient/family/POA.
--- NOTE | 2023-09-13 14:10 | PHAR ---
PT'S HOME MED UBRELVY 100 MG TAB VERIFIED BY PHARMACY
[2023-09-13] MEDS: ceFAZolin 3 GM/D5W 100 ML 100 ML IVPB (14:15)
--- NOTE | 2023-09-13 14:25 | P.DS_ITS ---
DS: Admitting Diagnosis Admitting Diagnosis Abdominal pain DS: Discharge Diagnosis Discharge Diagnosis (1) Ureterolithiasis: Code(s): N20.1 - Calculus of ureter Status: Acute Assessment and Plan: Abdominal pain with nausea and vomiting as well as hematuria. * CT abdomen and pelvis shows an obstructing 8.3 x 9.8 mm right UPJ calculus w ith moderately prominent right hydronephrosis. * Admit to medicine * IV fluids NS at 125 mL/hr * Trend creatinine. Currently elevated at 1.2 * Pain control with Dilaudid * P.r.n. Zofran for nausea * Consult with Urology for possible stent placement * Going for procedure at 1400 today (2) Leukocytosis: Qualifiers: Leukocytosis type: unspecified Qualified Code(s): D72.829 - Elevated white blood cell count, unspecified Code(s): D72.829 - Elevated white blood cell count, unspecified Status: Acute Assessment and Plan: Leukocytosis of 17.6 with normal neutrophil count. * Monitor for fevers * Slightly tachycardic on presentation in the low 100s but this improved with IV fluids * Blood pressures are normal * No obvious source of infection at this time. Leukocytosis may be reactive inflammatory mechanism (3) Hypertension: Qualifiers: Hypertension type: primary hypertension Qualified Code(s): I10 - Essential (primary) hypertension Code(s): I10 - Essential (primary) hypertension Status: Acute Assessment and Plan: Blood pressures reviewed and are stable. 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 * Q.6 Accu-Cheks while NPO. Once on the diet can change back to AC HS * NPO for now then transition to diabetic diet * Sliding scale insulin * Hypoglycemic protocol (5) Hyperlipidemia associated with type 2 diabetes mellitus: Code(s): E11.69 - Type 2 diabetes mellitus with other specified complication; E78.5 - Hyperlipidemia, unspecified Status: Acute Assessment and Plan: Stable on atorvastatin (6) GERD (gastroesophageal reflux disease): Qualifiers: Esophagitis presence: without esophagitis Qualified Code(s): K21.9 - Gastro-esophageal reflux disease without esophagitis Code(s): K21.9 - Gastro-esophageal reflux disease without esophagitis Status: Acute Assessment and Plan: Stable on omeprazole (7) KAYLEE (obstructive sleep apnea): Code(s): G47.33 - Obstructive sleep apnea (adult) (pediatric) Status: Acute Assessment and Plan: BiPAP/CPAP with auto titrate home setting ordered Plan Feeding: NPO Analgesia: IV Dilaudid Thromboembolic prophylaxis: SCDs for now Ulcer prophylaxis: Ppi Glycemic control: SSI Bowel regimen: na Lines: PIV Antibiotics: na Disposition: Home DS: Summary Status at Discharge Cognitive/behavioral status at discharge: A&Ox4 Time Spent with Patient Time attestation: Total time spent providing and/or coordinating discharge services:35 Exam Narrative: General: appears uncomfortable, well developed, well nourished, appears stated age. HEENT: normocep
--- NOTE | 2023-09-13 14:25 | PM.DS ---
DS: Admitting Diagnosis Admitting Diagnosis Abdominal pain DS: Discharge Diagnosis Discharge Diagnosis (1) Ureterolithiasis: Code(s): N20.1 - Calculus of ureter Status: Acute Assessment and Plan: Abdominal pain with nausea and vomiting as well as hematuria. CT abdomen and pelvis shows an obstructing 8.3 x 9.8 mm right UPJ calculus with moderately prominent right hydronephrosis. Admit to medicine IV fluids NS at 125 mL/hr Trend creatinine. Currently elevated at 1.2 Pain control with Dilaudid P.r.n. Zofran for nausea Consult with Urology for possible stent placement Going for procedure at 1400 today (2) Leukocytosis: Qualifiers: Leukocytosis type: unspecified Qualified Code(s): D72.829 - Elevated white blood cell count, unspecified Code(s): D72.829 - Elevated white blood cell count, unspecified Status: Acute Assessment and Plan: Leukocytosis of 17.6 with normal neutrophil count. Monitor for fevers Slightly tachycardic on presentation in the low 100s but this improved with IV fluids Blood pressures are normal No obvious source of infection at this time. Leukocytosis may be reactive inflammatory mechanism (3) Hypertension: Qualifiers: Hypertension type: primary hypertension Qualified Code(s): I10 - Essential (primary) hypertension Code(s): I10 - Essential (primary) hypertension Status: Acute Assessment and Plan: Blood pressures reviewed and are stable. 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 Q.6 Accu-Cheks while NPO. Once on the diet can change back to AC HS NPO for now then transition to diabetic diet Sliding scale insulin Hypoglycemic protocol (5) Hyperlipidemia associated with type 2 diabetes mellitus: Code(s): E11.69 - Type 2 diabetes mellitus with other specified complication; E78.5 - Hyperlipidemia, unspecified Status: Acute Assessment and Plan: Stable on atorvastatin (6) GERD (gastroesophageal reflux disease): Qualifiers: Esophagitis presence: without esophagitis Qualified Code(s): K21.9 - Gastro-esophageal reflux disease without esophagitis Code(s): K21.9 - Gastro-esophageal reflux disease without esophagitis Status: Acute Assessment and Plan: Stable on omeprazole (7) KAYLEE (obstructive sleep apnea): Code(s): G47.33 - Obstructive sleep apnea (adult) (pediatric) Status: Acute Assessment and Plan: BiPAP/CPAP with auto titrate home setting ordered Plan Feeding: NPO Analgesia: IV Dilaudid Thromboembolic prophylaxis: SCDs for now Ulcer prophylaxis: Ppi Glycemic control: SSI Bowel regimen: na Lines: PIV Antibiotics: na Disposition: Home DS: Summary Status at Discharge Cognitive/behavioral status at discharge: A&Ox4 Time Spent with Patient Time attestation: Total time spent providing and/or coordinating discharge services:35 Exam Narrative: General: appears uncomfortable, well developed, well nourished, appears stated age. HEENT: normocephalic, atraumatic. Mucous membranes moist. EOMI, PERRLA, bilateral sclera anicteric, no conjunctival injection. Neck supple without JVD, lymphadenopathy, or bruit. Respiratory: clear to auscultation bilaterally. No rales/rhonic/wheezes. Cardiovascular: Regular rate and rhythm, normal S1-S2 upon auscultation. No murmurs, rubs, or clicks. PMI is nondisplaced, capillary re-fill less than 3 second. Abdomen: Soft, obese, no pulsatile masses, non-distended
[2023-09-13] MEDS: LIDOCAINE HCL 2% GEL UROJET 10 ML PKG MUCOUS MEM (14:32)
--- NOTE | 2023-09-13 14:37 | P.OP_ITS ---
Procedure Note - Detailed Date of Procedure 09/13/23 Pre-op Diagnosis right ureter stone Post-op Diagnosis Same Procedure Performed cystoscopy, right retrograde pyelogram, right ureter stent placement Surgeon Mason Tariq MD Anesthesia General Indications right ureter stone Findings expected proximal ureter stone Description of Procedure Description of procedure: Patient was brought back to the operating room,, she was given a general anesthesia. She was prepped and draped in standard fashion in the dorsal lithotomy position with betadine to the genitalia. Timeout was performed, She received a preoperative dose of cefazolin. Care was taken to not hyperflex or hyperextend any extremity, all pressure points padded. A 22 fr cystoscope was inserterd into the urethra, the bladder was normal, no tumor, lesion mass or stone, She had single ureteral orifices, effluxing clear yellow urine. Stone was easily seen a s a radio-opaque density in the proximal ureter on automatic fancy machine operator fluoroscopy. A 5 Fr Open ended catheter was inserted into the right orifice. gentle retrograde pyelogram was performed which reveal moderate hydronephrosis proximal to this stone. A sensor wire was placed past the stone, and navigated into the renal pelvis, a 4.8 variable length stent was deployed over the wire, good curl was seen fluoroscopically in the kidney and both fluoroscopically and endoscopically in the bladder, the bladder was drained, all instruments and wires removed. 10 cc of lidocaine jelly instilled. Patient was awakened and transferred to PACU in stable condition. No immediate complications, no family to speak with. Implants right 4.8 variable length stent Pathology None sent Complications No immediate complications Condition Stable Disposition PACU
[2023-09-13] MEDS: LACTATED RINGERS 1,000 ML 30 ML IV CONT (14:43)
[2023-09-13 14:48] LABS: Glucose Point of Care 135 mg/dl (65-105)
[2023-09-13 16:55] LABS: Glucose Point of Care 223 mg/dl (65-105)
[2023-09-13] MEDS: INSULIN ASPART (*BKC) 100 UNITS/ML SUB-Q (17:19)
[2023-09-13] MEDS: TOPIRAMATE 25 MG TABLET 50 MG BY MOUTH (20:22)
[2023-09-13 20:53] LABS: Glucose Point of Care 182 mg/dl (65-105)
[2023-09-14] MEDS: SODIUM CHLORIDE 0.9% IV 1,000 ML 125 ML IV CONT (04:14)
[2023-09-14] MEDS: HYDROmorphone HCL INJ (*CRX) 1 MG/ML SYR 0.5 MG IV PUSH ×4 (04:16→19:40)
[2023-09-14 05:32] LABS: Basophils Absolute Auto 0.1 K/mm3 (0.0-0.1); Basophils Percent Auto 0.4 % (0.2-1.2); Eosinophils Absolute Auto 0.3 K/mm3 (0-0.3); Eosinophils Percent Auto 1.7 % (0-4.4); Hematocrit 45.8 % (37.0-47.0); Hemoglobin 13.7 g/dL (12.0-15.0); Immature Granulocyte Absolute 0.13 K/mm3 (0.00-0.031); Immature Granulocyte Percent A 0.9 % (0-0.5); Lymphocytes Absolute Auto 3.12 K/mm3 (0.9-3.2); Lymphocytes Percent Auto 21.7 % (18.3-44.2); Mean Corpuscular HGB Conc 29.9 g/dl (32-36); Monocytes Absolute Auto 1.2 K/mm3 (0.1-0.6); Monocytes Percent Auto 8.6 % (2.6-8.5); Neutrophils Absolute Auto 9.6 K/mm3 (1.3-6.7); Neutrophils Percent Auto 66.7 % (45.5-73.1); Platelet Count Result 237 k/mm3 (150-375); Red Blood Count 4.72 M/mm3 (4.2-5.4); Red Cell Distribution Width 14.3 % (11.5-14.5); White Blood Count 14.4 K/mm3 (4.5-10.0)
[2023-09-14 05:48] LABS: Alanine Aminotransferase 26 U/L (6-35); Albumin Level 3.5 g/dL (3.5-5.1); Alkaline Phosphatase 52 U/L (38-126); Anion Gap 5 mmol/L (8-16); Aspartate Amino Transferase 27 U/L (14-36); Bilirubin,Total 0.8 mg/dL (0.2-1.3); Blood Urea Nitrogen 12 mg/dL (7-17); Calcium 8.1 mg/dL (8.4-10.2); Carbon Dioxide 25 mmol/L (22-30); Chloride 106 mmol/L (98-107); Estimated CRCL calculation 115 ml/min; Estimated Glomerular Filt Rate > 60; Glucose 188 mg/dL (65-110); Magnesium 1.9 mg/dL (1.6-2.3); Sodium 136 mmol/L (137-145)
[2023-09-14 06:00] VITALS: BP 121/69; PULSE 93; RESP 18; TEMP 36.3; O2SAT 93
[2023-09-14 08:38] LABS: Glucose Point of Care 203 mg/dl (65-105)
[2023-09-14 08:41] VITALS: PULSE 94
[2023-09-14] MEDS: DESVENLAFAXINE SUCCINATE 50 MG TAB.ER.24H 100 MG PO (08:41)
[2023-09-14] MEDS: ARIPiprazole 10 MG TABLET 20 MG PO (08:41)
[2023-09-14] MEDS: SPIRONOLACTONE 50 MG TABLET 200 MG PO (08:41)
[2023-09-14] MEDS: TOPIRAMATE 25 MG TABLET BY MOUTH (08:41)
[2023-09-14] MEDS: METOPROLOL SUCCINATE EXT REL 50 MG TABCR PO (08:41)
[2023-09-14] MEDS: lisinopriL 5 MG TABLET PO (08:42)
[2023-09-14] MEDS: INSULIN ASPART (*BKC) 100 UNITS/ML SUB-Q ×2 (08:42→12:13)
[2023-09-14] MEDS: PANTOPRAZOLE 40 MG TABLET PO (08:42)
[2023-09-14] MEDS: ATORVASTATIN 10 MG TABLET PO (08:42)
--- NOTE | 2023-09-14 10:41 | WPDUROPN2 ---
Progress Note: A&P Assessment and Plan (1) Ureterolithiasis: Code(s): N20.1 - Calculus of ureter Status: Acute Plan POD#1 s/p ureter stent placement for RIGHT UPJ stone -doing well urine sent for culture outpt stone management with lithotripsy with Dr Simons. Pt understands stent is temporary Subjective Subjective Date/Time Seen: 09/14/23 10:41 Interval history: denies fever/chills/CP/SOB. C/o stent bother. No fevers/chills. tolerating diet Review of Systems Constitutional: Constitutional: Reports as per HPI and Reports no additional constitutional complaints Eyes: Eyes: Reports as per HPI and Reports no additional eye complaints ENT: Reports Normal hearing present Cardiovascular: Cardiovascular: Denies chest pain Genitourinary: Genitourinary: Reports flank pain Musculoskeletal: Musculoskeletal: Reports no additional musculoskeletal complaints Exam Const: General: comfortable and no acute distress HENMT: Mouth: Yes moist mucous membranes Eyes: General: appearance normal, both eyes and all related structures EOM: EOMs intact bilaterally Resp: Effort & Inspection: normal respiratory effort Cardio: Rate: regular rate GI: Inspection: non-distended Extrem: General: normal to inspection Psych: Mental Status: mental status grossly normal Objective Data Vital Signs Vital Signs: Vital Signs - 24 hr 09/13/23 14:43 09/13/23 14:45 09/13/23 15:00 Temperature 36.9 C Pulse Rate 99 95 98 Respiratory Rate 17 14 14 Blood Pressure 113/69 115/60 96/53 L Pulse Oximetry 100 100 100 Oxygen Delivery Simple Face Mask Simple Face Mask Room Air Oxygen Flow Rate 10 10 09/13/23 15:15 09/13/23 19:54 09/13/23 21:40 Temperature 36.6 C Pulse Rate 94 94 85 Respiratory Rate 19 19 18 Blood Pressure 104/63 117/70 Pulse Oximetry 100 100 100 Oxygen Delivery Room Air Room Air Oxygen Flow Rate 09/13/23 22:45 09/14/23 06:00 09/14/23 08:41 Temperature 36.3 C L Pulse Rate 93 94 Respiratory Rate 16 18 Blood Pressure 121/69 Pulse Oximetry 93 93 Oxygen Delivery Room Air Oxygen Flow Rate 09/14/23 09:35 Temperature Pulse Rate Respiratory Rate Blood Pressure Pulse Oximetry Oxygen Delivery Room Air Oxygen Flow Rate Intake/Output Intake/Output: Intake & Output 09/11/23 09/12/23 09/13/23 09/14/23 23:59 23:59 23:59 22:59 Intake Total 500 2970 1560 Output Total 1200 Balance 500 1770 1560 Meds/Results Medications: Active Medications Generic Name Dose Route Start Last Admin Trade Name Freq PRN Reason Stop Dose Admin Albuterol 2 puff 09/13/23 08:00 Albuterol Sulfate (*Sp) Aerosol 1 Puff INHALATION QID PRN shortness of breath or wheezing Aripiprazole 20 mg 09/13/23 09:00 09/14/23 08:41 Aripiprazole 10 Mg Tablet PO 20 mg QAM RAAD Administration Atorvastatin Calcium 10 mg 09/13/23 09:00 09/14/23 08:42 Atorvastatin 10 Mg Tablet PO 10 mg DAILY RAAD Administration Desvenlafaxine Succinate 100 mg 09/13/23 09:00 09/14/23 08:41 Desvenlafaxine Succinate 50 Mg Tab.Er.24h PO 100 mg QAM RAAD Administration Dextrose 12.5 gm 09/13/23 08:02 Dextrose 50% 25 Gm/50 Ml Syringe IV PUSH PRN PRN Hypoglycemia Protocol Fentanyl Citrate 25 mcg 09/13/23 13:34 Fentanyl Citrate Inj (*Crx) 100 Mcg/2 Ml Vial IV PUSH Q2M PRN Pain Glucagon 1 mg 09/13/23 08:02 Glucagon For Inj 1 Mg Vial IM PRN PRN Hypoglycemia Protocol Glucose 15 gm 09/13/23 08:02 Glucose Oral Gel 15 Gm Of Glucse In 37.5 Gm Tube PO PRN PRN Hypoglycemia Protocol Hydromorphone HCl 0.5 mg 09/13/23 05:19 09/14/23 08:43 Hydromorphone Hcl Inj (*Crx) 1 Mg/Ml Syr IV PUSH 0.5 mg Q3H PRN Administration Pain Rated 7-10 Hydroxyzine Pamoate 25 mg 09/13/23 08:00 Hydroxyzine Pamoate 25 Mg Capsule PO TID PRN Anxiety Sodium Chloride 1,000 mls @ 125 mls/hr
[2023-09-14 11:53] LABS: Glucose Point of Care 237 mg/dl (65-105)
--- NOTE | 2023-09-14 12:09 | P.PNIM_ITS ---
Progress Note: A&P Assessment and Plan (1) Ureterolithiasis: Code(s): N20.1 - Calculus of ureter Status: Acute Assessment and Plan: Abdominal pain with nausea and vomiting as well as hematuria. * CT abdomen and pelvis shows an obstructing 8.3 x 9.8 mm right UPJ calculus with moderately prominent right hydronephrosis. * Admit to medicine * IV fluids NS at 125 mL/hr * Trend creatinine.? Currently elevated at 1.2 * Pain control with Dilaudid * P.r.n. Zofran for nausea * Consult with Urology for possible stent placement * s/p cysto with stent placement * needs outpatient lithotripsy * urology sent urine for culture and would like results prior to dc (2) Leukocytosis: Qualifiers: Leukocytosis type: unspecified Qualified Code(s): D72.829 - Elevated white blood cell count, unspecified Code(s): D72.829 - Elevated white blood cell count, unspecified Status: Acute Assessment and Plan: Leukocytosis of 17.6 with normal neutrophil count. * Monitor for fevers * Slightly tachycardic on presentation in the low 100s but this improved with IV fluids * Blood pressures are normal * No obvious source of infection at this time.? Leukocytosis may be reactive inflammatory mechanism * WBC decreased to 14 today. She is asymptomatic for UTI and afebrile. (3) Hypertension: Qualifiers: Hypertension type: primary hypertension Qualified Code(s): I10 - Essential (primary) hypertension Code(s): I10 - Essential (primary) hypertension Status: Acute Assessment and Plan: Blood pressures reviewed and are stable. * Can resume home medications (4) Diabetes mellitus: Qualifiers: Diabetes mellitus type: type 2 Diabetes mellitus penitentiary insulin use: with penitentiary use Diabetes mellitus complication status: without complication Qualified Code(s): E11.9 - Type 2 diabetes mellitus without complications; Z79.4 - alf (current) use of insulin Code(s): E11.9 - Type 2 diabetes mellitus without complications Status: Acute Assessment and Plan: Hemoglobin A1c 7.5. * Q.6 Accu-Cheks while NPO.? Once on the diet can change back to AC HS * NPO for now then transition to diabetic diet * Sliding scale insulin * Hypoglycemic protocol (5) Hyperlipidemia associated with type 2 diabetes mellitus: Code(s): E11.69 - Type 2 diabetes mellitus with other specified complication; E78.5 - Hyperlipidemia, unspecified Status: Acute Assessment and Plan: Stable on atorvastatin (6) GERD (gastroesophageal reflux disease): Qualifiers: Esophagitis presence: without esophagitis Qualified Code(s): K21.9 - Gastro-esophageal reflux disease without esophagitis Code(s): K21.9 - Gastro-esophageal reflux disease without esophagitis Status: Acute Assessment and Plan: Stable on omeprazole (7) KAYLEE (obstructive sleep apnea): Code(s): G47.33 - Obstructive sleep apnea (adult) (pediatric) Status: Acute Assessment and Plan: BiPAP/CPAP with auto titrate home setting ordered Subjective Date/time seen: 09/14/23 12:09 Interval history: This is a 37-year-old female with a past medical history of bronchitis, anxiety, depression, GERD, migraine headache, hyperlipidemia, diabetes to, polycystic ovarian syndrome, KAYLEE, PTSD, and TIA.? She presented to the emergency room on 09/12 for right-sided flank pain.? She states the pain had been going on for over a week and it radiates into her lower abdomen.? She previously had been seen in the ER and then had a follow-up with Philip
--- NOTE | 2023-09-14 12:09 | PM.IMPN ---
Progress Note: A&P Assessment and Plan (1) Ureterolithiasis: Code(s): N20.1 - Calculus of ureter Status: Acute Assessment and Plan: Abdominal pain with nausea and vomiting as well as hematuria. CT abdomen and pelvis shows an obstructing 8.3 x 9.8 mm right UPJ calculus with moderately prominent right hydronephrosis. Admit to medicine IV fluids NS at 125 mL/hr Trend creatinine.? Currently elevated at 1.2 Pain control with Dilaudid P.r.n. Zofran for nausea Consult with Urology for possible stent placement s/p cysto with stent placement needs outpatient lithotripsy urology sent urine for culture and would like results prior to dc (2) Leukocytosis: Qualifiers: Leukocytosis type: unspecified Qualified Code(s): D72.829 - Elevated white blood cell count, unspecified Code(s): D72.829 - Elevated white blood cell count, unspecified Status: Acute Assessment and Plan: Leukocytosis of 17.6 with normal neutrophil count. Monitor for fevers Slightly tachycardic on presentation in the low 100s but this improved with IV fluids Blood pressures are normal No obvious source of infection at this time.? Leukocytosis may be reactive inflammatory mechanism WBC decreased to 14 today. She is asymptomatic for UTI and afebrile. (3) Hypertension: Qualifiers: Hypertension type: primary hypertension Qualified Code(s): I10 - Essential (primary) hypertension Code(s): I10 - Essential (primary) hypertension Status: Acute Assessment and Plan: Blood pressures reviewed and are stable. 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 Q.6 Accu-Cheks while NPO.? Once on the diet can change back to AC HS NPO for now then transition to diabetic diet Sliding scale insulin Hypoglycemic protocol (5) Hyperlipidemia associated with type 2 diabetes mellitus: Code(s): E11.69 - Type 2 diabetes mellitus with other specified complication; E78.5 - Hyperlipidemia, unspecified Status: Acute Assessment and Plan: Stable on atorvastatin (6) GERD (gastroesophageal reflux disease): Qualifiers: Esophagitis presence: without esophagitis Qualified Code(s): K21.9 - Gastro-esophageal reflux disease without esophagitis Code(s): K21.9 - Gastro-esophageal reflux disease without esophagitis Status: Acute Assessment and Plan: Stable on omeprazole (7) KAYLEE (obstructive sleep apnea): Code(s): G47.33 - Obstructive sleep apnea (adult) (pediatric) Status: Acute Assessment and Plan: BiPAP/CPAP with auto titrate home setting ordered Subjective Date/time seen: 09/14/23 12:09 Interval history: This is a 37-year-old female with a past medical history of bronchitis, anxiety, depression, GERD, migraine headache, hyperlipidemia, diabetes to, polycystic ovarian syndrome, KAYLEE, PTSD, and TIA.? She presented to the emergency room on 09/12 for right-sided flank pain.? She states the pain had been going on for over a week and it radiates into her lower abdomen.? She previously had been seen in the ER and then had a follow-up with Urology.? Yesterday she had a CT scan which did show an obstructing kidney stone and was prompted by her urologist to be seen in the ER.? She is reporting abdominal pain, nausea without vomiting, and hematuria.? In the ED she had tachycardia upon arrival which normalized after IV fluids.? CBC showed a leukocytosis of 17.6. BMP shows an elevation of creatinine to 1.2.? UA with RBCs but no
[2023-09-14 15:32] VITALS: BP 133/70; PULSE 93; RESP 16; TEMP 36.6; O2SAT 97
[2023-09-14 17:04] LABS: Glucose Point of Care 156 mg/dl (65-105)
[2023-09-14 19:39] VITALS: BP 115/60; PULSE 93; RESP 18; TEMP 36.6; O2SAT 99
[2023-09-14] MEDS: TOPIRAMATE 25 MG TABLET 50 MG BY MOUTH (19:40)
[2023-09-14 21:04] LABS: Glucose Point of Care 192 mg/dl (65-105)
[2023-09-14 22:51] VITALS: RESP 17; O2SAT 95
[2023-09-15] MEDS: HYDROmorphone HCL INJ (*CRX) 1 MG/ML SYR 0.5 MG IV PUSH ×6 (00:48→23:07)
[2023-09-15 05:56] LABS: Basophils Absolute Auto 0.1 K/mm3 (0.0-0.1); Basophils Percent Auto 0.4 % (0.2-1.2); Eosinophils Absolute Auto 0.2 K/mm3 (0-0.3); Eosinophils Percent Auto 1.5 % (0-4.4); Hemoglobin 14.4 g/dL (12.0-15.0); Immature Granulocyte Absolute 0.13 K/mm3 (0.00-0.031); Immature Granulocyte Percent A 0.8 % (0-0.5); Lymphocytes Absolute Auto 3.31 K/mm3 (0.9-3.2); Lymphocytes Percent Auto 20.9 % (18.3-44.2); Mean Corpuscular HGB Conc 31.3 g/dl (32-36); Mean Corpuscular Hemoglobin 29.6 pg (26-34); Mean Corpuscular Volume 94.7 fl (80-100); Mean Platelet Volume 10.7 fl (7.4-10.4); Monocytes Absolute Auto 1.3 K/mm3 (0.1-0.6); Monocytes Percent Auto 8.1 % (2.6-8.5); Neutrophils Absolute Auto 10.8 K/mm3 (1.3-6.7); Neutrophils Percent Auto 68.3 % (45.5-73.1); Platelet Count Result 251 k/mm3 (150-375); Red Blood Count 4.86 M/mm3 (4.2-5.4); Red Cell Distribution Width 13.9 % (11.5-14.5); White Blood Count 15.9 K/mm3 (4.5-10.0)
[2023-09-15] MEDS: HYDROmorphone HCL INJ (*CRX) 1 MG/ML SYR IV PUSH (05:56)
[2023-09-15 06:00] VITALS: BP 122/73; PULSE 92; RESP 18; TEMP 36.7; O2SAT 93
[2023-09-15 06:08] LABS: Alanine Aminotransferase 24 U/L (6-35); Albumin Level 3.8 g/dL (3.5-5.1); Alkaline Phosphatase 49 U/L (38-126); Anion Gap 7 mmol/L (8-16); Aspartate Amino Transferase 26 U/L (14-36); Bilirubin,Total 0.7 mg/dL (0.2-1.3); Blood Urea Nitrogen 12 mg/dL (7-17); Calcium 8.3 mg/dL (8.4-10.2); Carbon Dioxide 24 mmol/L (22-30); Chloride 104 mmol/L (98-107); Estimated CRCL calculation 128 ml/min; Estimated Glomerular Filt Rate > 60; Glucose 190 mg/dL (65-110); Potassium 3.8 mmol/L (3.4-5.0); Sodium 135 mmol/L (137-145)
--- NOTE | 2023-09-15 08:15 | P.PNIM_ITS ---
Progress Note: A&P Assessment and Plan (1) Ureterolithiasis: Code(s): N20.1 - Calculus of ureter Status: Acute Assessment and Plan: 09/14/23: * Abdominal pain with nausea and vomiting as well as hematuria. * CT abdomen and pelvis shows an obstructing 8.3 x 9.8 mm right UPJ calculus with moderately prominent right hydronephrosis. * Admit to medicine * IV fluids NS at 125 mL/hr * Trend creatinine.? Currently elevated at 1.2 * Pain control with Dilaudid * P.r.n. Zofran for nausea * Consult with Urology for possible stent placement * s/p cysto with stent placement * needs outpatient lithotripsy * urology sent urine for culture and would like results prior to dc 09/15/23: * Status post cystoscopy and stent placement to right ureter * Nicole was discontinued yesterday, patient voiding * Patient reports dysuria and bladder spasms today, with colicky pain. Will start patient on Ditropan and [place] 7.5/325 mg q.4 hours as needed for pain * Urology following, we patient will need outpatient lithotripsy however after evaluation today urology may decide to do more testing. * Continue Zofran for nausea. Patient denies any nausea vomiting at this time * Continue pain control * BUN 12, creatinine 0.8, bicarb 24 * Continue to trend labs * Monitor I&O (2) Leukocytosis: Qualifiers: Leukocytosis type: unspecified Qualified Code(s): D72.829 - Elevated white blood cell count, unspecified Code(s): D72.829 - Elevated white blood cell count, unspecified Status: Acute Assessment and Plan: 09/14/23: * Leukocytosis of 17.6 with normal neutrophil count. * Monitor for fevers * Slightly tachycardic on presentation in the low 100s but this improved with IV fluids * Blood pressures are normal * No obvious source of infection at this time.? Leukocytosis may be reactive inflammatory mechanism * WBC decreased to 14 today. She is asymptomatic for UTI and afebrile. 09/15/23: * White blood cell count down to 15.9 * Vital signs are stable other than a heart rate of 104 * Patient complaining of colicky pain right flank and back * Will continue pain efforts, will add [place] 7.5/325 mg as needed for pain * Reports bladder spasms will start Ditropan (3) Hypertension: Qualifiers: Hypertension type: primary hypertension Qualified Code(s): I10 - Essential (primary) hypertension Code(s): I10 - Essential (primary) hypertension Status: Acute Assessment and Plan: 09/14/23: * Blood pressures reviewed and are stable. * Can resume home medications 09/15/23: * Blood pressure ranging 122/73 to 122/79 * Continue with current treatment plan (4) Diabetes mellitus: Qualifiers: Diabetes mellitus complication status: without complication Diabetes mellitus hot kettle tender insulin use: with hot kettle tender use Diabetes mellitus type: type 2 Qualified Code(s): E11.9 - Type 2 diabetes mellitus without complications; Z79.4 - finish grinder (current) use of insulin Code(s): E11.9 - Type 2 diabetes mellitus without complications Status: Acute Assessment and Plan: 09/14/23: * Hemoglobin A1c 7.5. * Q.6 Accu-Cheks while NPO.? Once on the diet can change back to AC HS * NPO for now then transition to diabetic diet * Sliding scale insulin * Hypoglycemic protocol 09/15/23: * Blood sugars ranging 156-192 * Patient is now on a diabetic diet * Continue with sliding scale insulin and Accu-Cheks AC and HS * Continue hypoglycemic protocol as needed (5) Hyperlipidemia associated with type 2 diabetes mellitus: Code(s): E11.69
--- NOTE | 2023-09-15 08:15 | PM.IMPN ---
Progress Note: A&P Assessment and Plan (1) Ureterolithiasis: Code(s): N20.1 - Calculus of ureter Status: Acute Assessment and Plan: 09/14/23: Abdominal pain with nausea and vomiting as well as hematuria. CT abdomen and pelvis shows an obstructing 8.3 x 9.8 mm right UPJ calculus with moderately prominent right hydronephrosis. Admit to medicine IV fluids NS at 125 mL/hr Trend creatinine.? Currently elevated at 1.2 Pain control with Dilaudid P.r.n. Zofran for nausea Consult with Urology for possible stent placement s/p cysto with stent placement needs outpatient lithotripsy urology sent urine for culture and would like results prior to dc 09/15/23: Status post cystoscopy and stent placement to right ureter Nicole was discontinued yesterday, patient voiding Patient reports dysuria and bladder spasms today, with colicky pain. Will start patient on Ditropan and [place] 7.5/325 mg q.4 hours as needed for pain Urology following, we patient will need outpatient lithotripsy however after evaluation today urology may decide to do more testing. Continue Zofran for nausea. Patient denies any nausea vomiting at this time Continue pain control BUN 12, creatinine 0.8, bicarb 24 Continue to trend labs Monitor I&O (2) Leukocytosis: Qualifiers: Leukocytosis type: unspecified Qualified Code(s): D72.829 - Elevated white blood cell count, unspecified Code(s): D72.829 - Elevated white blood cell count, unspecified Status: Acute Assessment and Plan: 09/14/23: Leukocytosis of 17.6 with normal neutrophil count. Monitor for fevers Slightly tachycardic on presentation in the low 100s but this improved with IV fluids Blood pressures are normal No obvious source of infection at this time.? Leukocytosis may be reactive inflammatory mechanism WBC decreased to 14 today. She is asymptomatic for UTI and afebrile. 09/15/23: White blood cell count down to 15.9 Vital signs are stable other than a heart rate of 104 Patient complaining of colicky pain right flank and back Will continue pain efforts, will add [place] 7.5/325 mg as needed for pain Reports bladder spasms will start Ditropan (3) Hypertension: Qualifiers: Hypertension type: primary hypertension Qualified Code(s): I10 - Essential (primary) hypertension Code(s): I10 - Essential (primary) hypertension Status: Acute Assessment and Plan: 09/14/23: Blood pressures reviewed and are stable. 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 Q.6 Accu-Cheks while NPO.? Once on the diet can change back to AC HS NPO for now then transition to diabetic diet Sliding scale insulin Hypoglycemic protocol 09/15/23: Blood sugars ranging 156-192 Patient is now on a diabetic diet Continue with sliding scale insulin and Accu-Cheks AC and HS Continue hypoglycemic protocol as needed (5) Hyperlipidemia associated with type 2 diabetes mellitus: Code(s): E11.69 - Type 2 diabetes mellitus with other specified complication; E78.5 - Hyperlipidemia, unspecified Status: Acute Assessment and Plan: 09/14/23: Stable on atorvastatin 09/15/23: Continue with current treatment plan (6) GERD (gastroesophageal reflux disease): Qualifiers: Esophagitis presence: without esophagitis Qualified Code(s): K21.9 - Gastro-esophageal reflux disease without esophagitis
[2023-09-15 08:18] LABS: Glucose Point of Care 178 mg/dl (65-105)
[2023-09-15 08:54] VITALS: BP 122/79; PULSE 104; O2SAT 99
[2023-09-15] MEDS: ARIPiprazole 10 MG TABLET 20 MG PO (08:54)
[2023-09-15] MEDS: METOPROLOL SUCCINATE EXT REL 50 MG TABCR PO (08:54)
[2023-09-15] MEDS: SPIRONOLACTONE 50 MG TABLET 200 MG PO (08:55)
[2023-09-15] MEDS: lisinopriL 5 MG TABLET PO (08:55)
[2023-09-15] MEDS: DESVENLAFAXINE SUCCINATE 50 MG TAB.ER.24H 100 MG PO (08:55)
[2023-09-15] MEDS: ATORVASTATIN 10 MG TABLET PO (08:55)
[2023-09-15] MEDS: TOPIRAMATE 25 MG TABLET BY MOUTH (08:55)
[2023-09-15] MEDS: PANTOPRAZOLE 40 MG TABLET PO (08:55)
[2023-09-15] MEDS: ENOXAPARIN 40 MG/0.4 ML SYRINGE SUB-Q (08:55)
[2023-09-15 11:17] LABS: Glucose Point of Care 245 mg/dl (65-105)
[2023-09-15] MEDS: INSULIN ASPART (*BKC) 100 UNITS/ML SUB-Q ×3 (11:53→20:10)
[2023-09-15] MEDS: oxyBUTYnin CHLORIDE XL 5 MG TAB.ER.24 PO (13:35)
[2023-09-15] MEDS: HYDROcodone/acetaminophen (*CRX) 7.5-325 MG TABLET PO ×2 (13:35→20:08)
[2023-09-15 15:54] VITALS: BP 100/57; PULSE 88; RESP 16; TEMP 36.8; O2SAT 95
[2023-09-15 17:06] LABS: Glucose Point of Care 210 mg/dl (65-105)
[2023-09-15] MEDS: TOPIRAMATE 25 MG TABLET 50 MG BY MOUTH (20:09)
[2023-09-15 20:54] LABS: Glucose Point of Care 218 mg/dl (65-105)
[2023-09-15 21:35] VITALS: BP 105/47; PULSE 86; RESP 18; TEMP 36.7; O2SAT 96
[2023-09-15 23:05] VITALS: BP 126/63; RESP 18; O2SAT 95
[2023-09-16] MEDS: HYDROcodone/acetaminophen (*CRX) 7.5-325 MG TABLET PO ×3 (00:07→10:59)
[2023-09-16 05:19] VITALS: BP 120/69; PULSE 93; RESP 18; TEMP 36.5; O2SAT 94
[2023-09-16] MEDS: HYDROmorphone HCL INJ (*CRX) 1 MG/ML SYR 0.5 MG IV PUSH ×2 (06:56→12:26)
[2023-09-16 08:20] LABS: Glucose Point of Care 238 mg/dl (65-105)
[2023-09-16] MEDS: SPIRONOLACTONE 50 MG TABLET 200 MG PO (08:55)
[2023-09-16] MEDS: oxyBUTYnin CHLORIDE XL 5 MG TAB.ER.24 PO (08:56)
[2023-09-16] MEDS: ARIPiprazole 10 MG TABLET 20 MG PO (08:56)
[2023-09-16] MEDS: ATORVASTATIN 10 MG TABLET PO (08:56)
[2023-09-16] MEDS: lisinopriL 5 MG TABLET PO (08:56)
[2023-09-16] MEDS: DESVENLAFAXINE SUCCINATE 50 MG TAB.ER.24H 100 MG PO (08:56)
[2023-09-16] MEDS: INSULIN ASPART (*BKC) 100 UNITS/ML SUB-Q ×4 (08:56→21:34)
[2023-09-16] MEDS: TOPIRAMATE 25 MG TABLET BY MOUTH (08:56)
[2023-09-16] MEDS: ENOXAPARIN 40 MG/0.4 ML SYRINGE SUB-Q (08:56)
[2023-09-16 08:57] VITALS: PULSE 93
[2023-09-16] MEDS: METOPROLOL SUCCINATE EXT REL 50 MG TABCR PO (08:57)
[2023-09-16] MEDS: PANTOPRAZOLE 40 MG TABLET PO (08:57)
[2023-09-16 12:10] LABS: Glucose Point of Care 239 mg/dl (65-105)
[2023-09-16 14:00] VITALS: BP 114/72; PULSE 90; RESP 18; TEMP 36.7; O2SAT 97
[2023-09-16] MEDS: KETOROLAC 15 MG/ML VIAL (*BKC) IV PUSH ×2 (15:35→21:31)
--- NOTE | 2023-09-16 17:12 | P.PNIM_ITS ---
Progress Note: A&P Assessment and Plan (1) Ureterolithiasis: Code(s): N20.1 - Calculus of ureter Status: Acute Assessment and Plan: 09/14/23: * Abdominal pain with nausea and vomiting as well as hematuria. * CT abdomen and pelvis shows an obstructing 8.3 x 9.8 mm right UPJ calculus with moderately prominent right hydronephrosis. * Admit to medicine * IV fluids NS at 125 mL/hr * Trend creatinine.? Currently elevated at 1.2 * Pain control with Dilaudid * P.r.n. Zofran for nausea * Consult with Urology for possible stent placement * s/p cysto with stent placement * needs outpatient lithotripsy * urology sent urine for culture and would like results prior to dc 09/15/23: * Status post cystoscopy and stent placement to right ureter * Nicole was discontinued yesterday, patient voiding * Patient reports dysuria and bladder spasms today, with colicky pain. Will start patient on Ditropan and [place] 7.5/325 mg q.4 hours as needed for pain * Urology following, we patient will need outpatient lithotripsy however after evaluation today urology may decide to do more testing. * Continue Zofran for nausea. Patient denies any nausea vomiting at this time * Continue pain control * BUN 12, creatinine 0.8, bicarb 24 * Continue to trend labs * Monitor I&O 09/16/2023: * status post cystoscopy and stent placement to the right ureter, postop day 2 * patient reporting pressure, resistance whenever voiding * patient reporting 8/10 pain that is colicky in the right flank radiating to her * will re-consult Urology to see patient, Dr. Tariq was not available today, consult placed with Dr. Simons. * Continue with pain control * continue to trend labs * continue to monitor I and O (2) Leukocytosis: Qualifiers: Leukocytosis type: unspecified Qualified Code(s): D72.829 - Elevated white blood cell count, unspecified Code(s): D72.829 - Elevated white blood cell count, unspecified Status: Acute Assessment and Plan: 09/14/23: * Leukocytosis of 17.6 with normal neutrophil count. * Monitor for fevers * Slightly tachycardic on presentation in the low 100s but this improved with IV fluids * Blood pressures are normal * No obvious source of infection at this time.? Leukocytosis may be reactive inflammatory mechanism * WBC decreased to 14 today. She is asymptomatic for UTI and afebrile. 09/15/23: * White blood cell count down to 15.9 * Vital signs are stable other than a heart rate of 104 * Patient complaining of colicky pain right flank and back * Will continue pain efforts, will add [place] 7.5/325 mg as needed for pain * Reports bladder spasms will start Ditropan 09/16/2023: * vital signs are stable * no labs were available we will recheck these stat (3) Hypertension: Qualifiers: Hypertension type: primary hypertension Qualified Code(s): I10 - Essential (primary) hypertension Code(s): I10 - Essential (primary) hypertension Status: Acute Assessment and Plan: 09/14/23: * Blood pressures reviewed and are stable. * Can resume home medications 09/15/23: * Blood pressure ranging 122/73 to 122/79 * Continue with current treatment plan 09/16/23: * blood pressure stable * continue current treatment plan (4) Diabetes mellitus: Qualifiers: Diabetes mellitus type: type 2 Diabetes mellitus press tender long goods insulin use: with press tender long goods use Diabetes mellitus complication status: without complication Qualified Code(s): E11.9 - Type 2 diabetes mellitus without complications; Z79.4 - [facility] (current
--- NOTE | 2023-09-16 17:12 | PM.IMPN ---
Progress Note: A&P Assessment and Plan (1) Ureterolithiasis: Code(s): N20.1 - Calculus of ureter Status: Acute Assessment and Plan: 09/14/23: Abdominal pain with nausea and vomiting as well as hematuria. CT abdomen and pelvis shows an obstructing 8.3 x 9.8 mm right UPJ calculus with moderately prominent right hydronephrosis. Admit to medicine IV fluids NS at 125 mL/hr Trend creatinine.? Currently elevated at 1.2 Pain control with Dilaudid P.r.n. Zofran for nausea Consult with Urology for possible stent placement s/p cysto with stent placement needs outpatient lithotripsy urology sent urine for culture and would like results prior to dc 09/15/23: Status post cystoscopy and stent placement to right ureter Nicole was discontinued yesterday, patient voiding Patient reports dysuria and bladder spasms today, with colicky pain. Will start patient on Ditropan and [place] 7.5/325 mg q.4 hours as needed for pain Urology following, we patient will need outpatient lithotripsy however after evaluation today urology may decide to do more testing. Continue Zofran for nausea. Patient denies any nausea vomiting at this time Continue pain control BUN 12, creatinine 0.8, bicarb 24 Continue to trend labs Monitor I&O 09/16/2023: status post cystoscopy and stent placement to the right ureter, postop day 2 patient reporting pressure, resistance whenever voiding patient reporting 8/10 pain that is colicky in the right flank radiating to her will re-consult Urology to see patient, Dr. Tariq was not available today, consult placed with Dr. Simons. Continue with pain control continue to trend labs continue to monitor I and O (2) Leukocytosis: Qualifiers: Leukocytosis type: unspecified Qualified Code(s): D72.829 - Elevated white blood cell count, unspecified Code(s): D72.829 - Elevated white blood cell count, unspecified Status: Acute Assessment and Plan: 09/14/23: Leukocytosis of 17.6 with normal neutrophil count. Monitor for fevers Slightly tachycardic on presentation in the low 100s but this improved with IV fluids Blood pressures are normal No obvious source of infection at this time.? Leukocytosis may be reactive inflammatory mechanism WBC decreased to 14 today. She is asymptomatic for UTI and afebrile. 09/15/23: White blood cell count down to 15.9 Vital signs are stable other than a heart rate of 104 Patient complaining of colicky pain right flank and back Will continue pain efforts, will add [place] 7.5/325 mg as needed for pain Reports bladder spasms will start Ditropan 09/16/2023: vital signs are stable no labs were available we will recheck these stat (3) Hypertension: Qualifiers: Hypertension type: primary hypertension Qualified Code(s): I10 - Essential (primary) hypertension Code(s): I10 - Essential (primary) hypertension Status: Acute Assessment and Plan: 09/14/23: Blood pressures reviewed and are stable. 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 Q.6 Accu-Cheks while NPO.? Once on the diet can change back to AC HS NPO for now then transition to diabetic diet Sliding scale insulin Hypoglycemic protocol 09/15/23: Blood sugars ranging 156-192 Patient is now on a diabetic diet Continue with slidin
[2023-09-16 17:17] LABS: Glucose Point of Care 243 mg/dl (65-105)
[2023-09-16 17:22] LABS: Basophils Absolute Auto 0.1 K/mm3 (0.0-0.1); Basophils Percent Auto 0.5 % (0.2-1.2); Eosinophils Absolute Auto 0.2 K/mm3 (0-0.3); Eosinophils Percent Auto 1.7 % (0-4.4); Hematocrit 47.7 % (37.0-47.0); Hemoglobin 14.8 g/dL (12.0-15.0); Immature Granulocyte Percent A 0.8 % (0-0.5); Lymphocytes Absolute Auto 2.58 K/mm3 (0.9-3.2); Lymphocytes Percent Auto 19.4 % (18.3-44.2); Mean Corpuscular Hemoglobin 29.2 pg (26-34); Mean Corpuscular Volume 94.3 fl (80-100); Mean Platelet Volume 10.3 fl (7.4-10.4); Monocytes Absolute Auto 1.1 K/mm3 (0.1-0.6); Monocytes Percent Auto 8.6 % (2.6-8.5); Neutrophils Absolute Auto 9.2 K/mm3 (1.3-6.7); Platelet Count Result 281 k/mm3 (150-375); Red Blood Count 5.06 M/mm3 (4.2-5.4); Red Cell Distribution Width 14.1 % (11.5-14.5); White Blood Count 13.3 K/mm3 (4.5-10.0)
[2023-09-16 17:32] LABS: Alanine Aminotransferase 68 U/L (6-35); Albumin Level 3.9 g/dL (3.5-5.1); Alkaline Phosphatase 66 U/L (38-126); Anion Gap 6 mmol/L (8-16); Aspartate Amino Transferase 86 U/L (14-36); Bilirubin,Total 0.9 mg/dL (0.2-1.3); Blood Urea Nitrogen 13 mg/dL (7-17); Calcium 8.6 mg/dL (8.4-10.2); Carbon Dioxide 25 mmol/L (22-30); Chloride 103 mmol/L (98-107); Estimated CRCL calculation 115 ml/min; Estimated Glomerular Filt Rate > 60; Glucose 215 mg/dL (65-110); Potassium 4.3 mmol/L (3.4-5.0); Sodium 134 mmol/L (137-145)
[2023-09-16 20:59] LABS: Glucose Point of Care 277 mg/dl (65-105)
[2023-09-16] MEDS: TOPIRAMATE 25 MG TABLET 50 MG BY MOUTH (21:30)
[2023-09-16 21:31] VITALS: BP 116/68; PULSE 92; RESP 18; TEMP 36.8; O2SAT 95
[2023-09-17] MEDS: KETOROLAC 15 MG/ML VIAL (*BKC) IV PUSH (03:59)
[2023-09-17 05:02] VITALS: BP 123/52; PULSE 109; RESP 20; TEMP 36.7; O2SAT 98
[2023-09-17] MEDS: ONDANSETRON INJ 4 MG/2 ML VIAL IV PUSH (08:00)
[2023-09-17] MEDS: ENOXAPARIN 40 MG/0.4 ML SYRINGE SUB-Q (08:04)
[2023-09-17 08:05] LABS: Basophils Absolute Auto 0.1 K/mm3 (0.0-0.1); Basophils Percent Auto 0.3 % (0.2-1.2); Eosinophils Absolute Auto 0.1 K/mm3 (0-0.3); Eosinophils Percent Auto 0.3 % (0-4.4); Hematocrit 48.6 % (37.0-47.0); Hemoglobin 15.4 g/dL (12.0-15.0); Immature Granulocyte Absolute 0.27 K/mm3 (0.00-0.031); Lymphocytes Absolute Auto 1.71 K/mm3 (0.9-3.2); Lymphocytes Percent Auto 6.5 % (18.3-44.2); Mean Corpuscular HGB Conc 31.7 g/dl (32-36); Mean Corpuscular Hemoglobin 29.5 pg (26-34); Mean Corpuscular Volume 93.1 fl (80-100); Mean Platelet Volume 10.2 fl (7.4-10.4); Monocytes Absolute Auto 2.3 K/mm3 (0.1-0.6); Monocytes Percent Auto 8.5 % (2.6-8.5); Neutrophils Absolute Auto 22.1 K/mm3 (1.3-6.7); Neutrophils Percent Auto 83.4 % (45.5-73.1); Platelet Count Result 286 k/mm3 (150-375); Red Blood Count 5.22 M/mm3 (4.2-5.4); White Blood Count 26.5 K/mm3 (4.5-10.0)
[2023-09-17 08:15] LABS: Alanine Aminotransferase 55 U/L (6-35); Albumin Level 4.1 g/dL (3.5-5.1); Alkaline Phosphatase 68 U/L (38-126); Anion Gap 9 mmol/L (8-16); Aspartate Amino Transferase 39 U/L (14-36); Bilirubin,Total 1.3 mg/dL (0.2-1.3); Blood Urea Nitrogen 17 mg/dL (7-17); Calcium 8.9 mg/dL (8.4-10.2); Carbon Dioxide 22 mmol/L (22-30); Chloride 102 mmol/L (98-107); Estimated CRCL calculation 115 ml/min; Estimated Glomerular Filt Rate > 60; Glucose 218 mg/dL (65-110); Potassium 4.4 mmol/L (3.4-5.0); Sodium 133 mmol/L (137-145)
[2023-09-17 08:22] VITALS: O2SAT 94
[2023-09-17 08:43] LABS: Glucose Point of Care 243 mg/dl (65-105)
[2023-09-17] MEDS: INSULIN ASPART (*BKC) 100 UNITS/ML SUB-Q ×4 (09:47→21:03)
[2023-09-17] MEDS: KETOROLAC 30 MG/ML VIAL (*BKC) IV PUSH ×2 (10:45→17:29)
[2023-09-17 12:14] LABS: Glucose Point of Care 256 mg/dl (65-105)
--- NOTE | 2023-09-17 12:14 | PM.IMPN ---
Progress Note: A&P Assessment and Plan (1) Ureterolithiasis: Code(s): N20.1 - Calculus of ureter Status: Acute Assessment and Plan: patient presents to the ED on 09/13/2023 due to abdominal pain, nausea, vomiting and hematuria. CT abdomen pelvis revealing a 8.3 x 9.8 mm right stone. Urology consulted. Anti emetics and analgesics p.r.n.. Cystoscopy and stent placement on 09/15/2023. Patient continuing to have lingering pain status post cystoscopy and stent placement, urology reconsulted. (2) Leukocytosis: Qualifiers: Leukocytosis type: unspecified Qualified Code(s): D72.829 - Elevated white blood cell count, unspecified Code(s): D72.829 - Elevated white blood cell count, unspecified Status: Acute Assessment and Plan: On admission patient had leukocytosis of 17.6. White blood cell count continued to trend down. On 09/17/2023 white blood cell count was 26.5 Repeat UA, CT abdomen pelvis, lactic acid and IV fluids ordered. (3) Hypertension: Qualifiers: Hypertension type: primary hypertension Qualified Code(s): I10 - Essential (primary) hypertension Code(s): I10 - Essential (primary) hypertension Status: Acute Assessment and Plan: Resume home medications. 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 After speaking to nurse she did not take her morning medication due to continue nausea. Labs were ordered and revealed a white blood cell count 26.5 which was significantly elevated from yesterday. Due to patient's new nausea and elevated white blood cell count a UA, CT abdomen pelvis, lactic and IV fluids were Ordered. She states that she did have some discomfort with urination but no increased frequency or urgency. She denied any abdominal pain, chest pain or shortness of breath. Exam Narrative: GENERAL: Comfortable, no acute distress, morbid obesity HENMT: moist mucous membranes EYES: EOM intact b/l NECK: no lymphadenopathy RESPIRATORY: clear to auscultation CARDIO: RRR GI: soft, nontender, bowel sounds present SKIN: no rashes EXTREMITIES: no edema, redness or tenderness Objective Data Vital Signs Vital Signs: Vital Signs - 24 hr 09/16/23 14:00 09/16/23 21:31 09/17/23 05:02 Temperature 98.1 F 98.2 F 98.0 F Pulse Rate 90 92 109 H Respiratory Rate 18 18 20 Blood Pressure 114/72 116/68 123/52 L Pulse Oximetry 97 95 98 Oxygen Delivery 09/17/23 08:22 Temperature Pulse Rate Respiratory Rate Blood Pressure Pulse Oximetry 94 Oxygen Delivery Room Air Intake/Output Intake/Output: Intake & Output 09/14/23 09/15/23 09/16/23 09/17/23 23:59 23:59 23:59 23:59 Intake Total 1770 1700 900 Output Total 1600 750 600 Balance 170 950 300 Meds/Results Medications: Active Medications Generic Name Dose Route Start Last Admin Trade Name Freq PRN Reason Stop Dose Admin Hydrocodone Bitart/Acetaminophen 1 - 2 tab 09/15/23 12:42 09/16/23 10:59 Hydrocodone/Acetaminophen (*Crx) 7.5-325 Mg Tablet PO 2 tab Q4H PRN Administr
[2023-09-17 12:17] LABS: Lactic Acid Reflex 1.5 mmol/L (0.7-2.0)
[2023-09-17] MEDS: METOPROLOL SUCCINATE EXT REL 50 MG TABCR PO (12:37)
[2023-09-17] MEDS: SPIRONOLACTONE 50 MG TABLET 200 MG PO (12:37)
[2023-09-17] MEDS: lisinopriL 5 MG TABLET PO (12:37)
[2023-09-17] MEDS: ONDANSETRON INJ 4 MG/2 ML VIAL 8 MG IV PUSH ×2 (12:37→17:29)
[2023-09-17] MEDS: ATORVASTATIN 10 MG TABLET PO (12:37)
[2023-09-17] MEDS: DESVENLAFAXINE SUCCINATE 50 MG TAB.ER.24H 100 MG PO (12:38)
[2023-09-17] MEDS: ARIPiprazole 10 MG TABLET 20 MG PO (12:38)
[2023-09-17] MEDS: TOPIRAMATE 25 MG TABLET BY MOUTH (12:38)
[2023-09-17] MEDS: PANTOPRAZOLE 40 MG TABLET PO (12:38)
[2023-09-17] MEDS: oxyBUTYnin CHLORIDE XL 5 MG TAB.ER.24 PO (12:38)
[2023-09-17] MEDS: SODIUM CHLORIDE 0.9% IV 1,000 ML 100 ML IV CONT ×2 (12:52→21:09)
--- NOTE | 2023-09-17 14:45 | PCCCNOTE ---
On 09/17/23, the student, [Stewart Garcia], provided care and completed [facility] documentation on this patient. I have reviewed the student's documentation and agree with the findings.
[2023-09-17 14:58] VITALS: BP 134/64; PULSE 100; RESP 20; TEMP 36.6; O2SAT 97
--- NOTE | 2023-09-17 15:18 | WPDUROPN2 ---
Progress Note: A&P Assessment and Plan (1) Ureterolithiasis: Code(s): N20.1 - Calculus of ureter Status: Acute Assessment and Plan: Pt. will have a ureteroscopy with stent exchange next week. Urine cutlure is negative. Pt's post operative pain and nausea is not well controlled. (2) Bilateral lower abdominal pain: Code(s): R10.31 - Right lower quadrant pain; R10.32 - Left lower quadrant pain Status: Acute Assessment and Plan: Increase Ketorloac to 30mg q 6, try to give oral if possible to see if she can tolerate that for discharge. (3) Nausea & vomiting: Code(s): R11.2 - Nausea with vomiting, unspecified Status: Acute Assessment and Plan: Increase Zofran to 8mg q 4-6mg. Subjective Subjective Date/Time Seen: 09/17/23 15:18 Post Op day: 4 Principal diagnosis: cystoscopy, right retrograde pyelogram, right ureter stent placement Interval history: Pt. continues to have nausea, vomtiing and pain. We added Torodol for pain yesterday which she did state helped her. She declined pain medication this morning even though she states she is in moderate to severe pain d/t nausea and vomiting, even though it's IV not oral. I encouraged her to take Torodol to control her pain which may in turn control her nasuea and vomiting. Otherwise she is doing ok. Review of Systems Cardiovascular: Cardiovascular: Denies chest pain Respiratory: Respiratory: Reports no additional respiratory complaints Gastrointestinal: Gastrointestinal: Reports abdominal pain, Reports nausea and Reports vomiting Genitourinary: Genitourinary: Denies hematuria, Denies nocturia, Denies dysuria, Denies pelvic pain, Denies flank pain, Denies urinary incontinence, Denies urinary hesitancy and Denies urinary urgency Exam Const: General: cooperative and comfortable Resp: Effort & Inspection: normal respiratory effort Cardio: Rate: regular rate GI: GI Palp: Yes Soft to palpation and No Tenderness to palpation present (GI) : General: Yes CVA tenderness on the right Extrem: Right lower extremity: no edema Left lower extremity: no edema Objective Data Vital Signs Vital Signs: Vital Signs - 24 hr 09/16/23 21:31 09/17/23 05:02 09/17/23 08:22 Temperature 98.2 F 98.0 F Pulse Rate 92 109 H Respiratory Rate 18 20 Blood Pressure 116/68 123/52 L Pulse Oximetry 95 98 94 Oxygen Delivery Room Air Intake/Output Intake/Output: Intake & Output 09/14/23 09/15/23 09/16/23 09/17/23 23:59 23:59 23:59 23:59 Intake Total 1770 1700 1140 Output Total 1600 750 600 Balance 170 950 540 Meds/Results Medications: Active Medications Generic Name Dose Route Start Last Admin Trade Name Freq PRN Reason Stop Dose Admin Hydrocodone Bitart/Acetaminophen 1 - 2 tab 09/15/23 12:42 09/16/23 10:59 Hydrocodone/Acetaminophen (*Crx) 7.5-325 Mg Tablet PO 2 tab Q4H PRN Administration Pain Rated 4-10 Albuterol 2 puff 09/13/23 08:00 Albuterol Sulfate (*Sp) Aerosol 1 Puff INHALATION QID PRN shortness of breath or wheezing Aripiprazole 20 mg 09/13/23 09:00 09/17/23 12:38 Aripiprazole 10 Mg Tablet PO 20 mg QAM RAAD Administration Atorvastatin Calcium 10 mg 09/13/23 09:00 09/17/23 12:37 Atorvastatin 10 Mg Tablet PO 10 mg DAILY RAAD Administration Desvenlafaxine Succinate 100 mg 09/13/23 09:00 09/17/23 12:38 Desvenlafaxine Succinate 50 Mg Tab.Er.24h PO 100 mg QAM RAAD Administration Dextrose 12.5 gm 09/13/23 08:02 Dextrose 50% 25 Gm/50 Ml Syringe IV PUSH PRN PRN Hypoglycemia Protocol Enoxaparin Sodium 40 mg 09/15/23 09:00 09/17/23 08:04 Enoxaparin 40 Mg/0.4 Ml Syringe SUB-Q 40 mg DAILY RAAD Administration Fentanyl Citrate 25 mcg 09/13/23 13:34 Fentanyl Citrate Inj (*Crx) 100 Mcg/2 Ml Vial IV PUSH Q2M PRN Pain Glucagon 1 mg 09/13/23 08:02 Glucagon For Inj 1 Mg Vial IM PRN PRN
[2023-09-17 16:30] LABS: Appearance Urine Cloudy (Clear); Bacteria Urine 4+ /hpf; Bilirubin Urine Negative (Negative); Blood Urine Trace (Negative); Color Urine Dark Yellow (Yellow); Glucose Urine UA 3+ mg/dL (Negative); Ketones Urine Trace mg/dL (Negative); Leukocyte Esterase Ur 1+ LEU/UL (Negative); Need Manual Microscopic Reviewed; Nitrate Urine Positive (Negative); Non Pathogenic Casts 0-2; Protein Urine 2+ mg/dL (Negative); RBC Urine 21-50 /hpf (0-2); Specific Grav Ur 1.028 (1.001-1.035); Squamous Epithelial Cell Urine Occasional /hpf (Few); WBC Urine 51-100 /hpf
[2023-09-17 16:33] LABS: Add Urine Microscopic? YES
[2023-09-17 17:18] LABS: Glucose Point of Care 227 mg/dl (65-105)
[2023-09-17 20:17] VITALS: BP 119/74; PULSE 120; RESP 20; TEMP 36.3; O2SAT 100
[2023-09-17] MEDS: TOPIRAMATE 25 MG TABLET 50 MG BY MOUTH (20:59)
[2023-09-17 21:02] LABS: Glucose Point of Care 255 mg/dl (65-105)
[2023-09-17] MEDS: HYDROcodone/acetaminophen (*CRX) 7.5-325 MG TABLET PO (21:05)
[2023-09-18 05:12] LABS: Basophils Absolute Auto 0.1 K/mm3 (0.0-0.1); Basophils Percent Auto 0.3 % (0.2-1.2); Eosinophils Percent Auto 0.1 % (0-4.4); Hematocrit 42.7 % (37.0-47.0); Hemoglobin 13.6 g/dL (12.0-15.0); Immature Granulocyte Absolute 1.49 K/mm3 (0.00-0.031); Immature Granulocyte Percent A 3.8 % (0-0.5); Lymphocytes Absolute Auto 1.63 K/mm3 (0.9-3.2); Lymphocytes Percent Auto 4.2 % (18.3-44.2); Mean Corpuscular HGB Conc 31.9 g/dl (32-36); Mean Corpuscular Hemoglobin 29.8 pg (26-34); Mean Corpuscular Volume 93.6 fl (80-100); Monocytes Percent Auto 10.2 % (2.6-8.5); Neutrophils Absolute Auto 31.6 K/mm3 (1.3-6.7); Neutrophils Percent Auto 81.4 % (45.5-73.1); Platelet Count Result 228 k/mm3 (150-375); Red Blood Count 4.56 M/mm3 (4.2-5.4); Red Cell Distribution Width 14.3 % (11.5-14.5); White Blood Count 38.8 K/mm3 (4.5-10.0)
[2023-09-18 05:17] LABS: Alanine Aminotransferase 33 U/L (6-35); Albumin Level 3.5 g/dL (3.5-5.1); Alkaline Phosphatase 50 U/L (38-126); Anion Gap 10 mmol/L (8-16); Aspartate Amino Transferase 24 U/L (14-36); Bilirubin,Total 1.4 mg/dL (0.2-1.3); Blood Urea Nitrogen 17 mg/dL (7-17); Calcium 8.1 mg/dL (8.4-10.2); Carbon Dioxide 19 mmol/L (22-30); Chloride 102 mmol/L (98-107); Estimated CRCL calculation 88 ml/min; Estimated Glomerular Filt Rate 50; Glucose 234 mg/dL (65-110); Potassium 3.7 mmol/L (3.4-5.0); Sodium 131 mmol/L (137-145)
[2023-09-18] MEDS: ONDANSETRON INJ 4 MG/2 ML VIAL 8 MG IV PUSH ×3 (06:38→22:36)
[2023-09-18] MEDS: KETOROLAC 30 MG/ML VIAL (*BKC) IV PUSH ×3 (06:43→22:37)
[2023-09-18] MEDS: SODIUM CHLORIDE 0.9% IV 1,000 ML 100 ML IV CONT ×2 (06:44→22:43)
[2023-09-18 06:45] VITALS: BP 112/58; PULSE 91; RESP 16; TEMP 36.7; O2SAT 99
[2023-09-18 08:45] LABS: Glucose Point of Care 274 mg/dl (65-105)
[2023-09-18] MEDS: ARIPiprazole 10 MG TABLET 20 MG PO (09:42)
[2023-09-18] MEDS: DESVENLAFAXINE SUCCINATE 50 MG TAB.ER.24H 100 MG PO (09:42)
[2023-09-18] MEDS: INSULIN ASPART (*BKC) 100 UNITS/ML SUB-Q ×3 (09:42→20:21)
[2023-09-18 09:43] VITALS: PULSE 91
[2023-09-18] MEDS: METOPROLOL SUCCINATE EXT REL 50 MG TABCR PO (09:43)
[2023-09-18] MEDS: PANTOPRAZOLE 40 MG TABLET PO (09:43)
[2023-09-18] MEDS: oxyBUTYnin CHLORIDE XL 5 MG TAB.ER.24 PO (09:43)
[2023-09-18] MEDS: TOPIRAMATE 25 MG TABLET BY MOUTH (09:43)
[2023-09-18] MEDS: ENOXAPARIN 40 MG/0.4 ML SYRINGE SUB-Q (09:47)
[2023-09-18] MEDS: SPIRONOLACTONE 50 MG TABLET 200 MG PO (09:49)
[2023-09-18] MEDS: HYDROcodone/acetaminophen (*CRX) 7.5-325 MG TABLET PO ×2 (09:58→17:15)
[2023-09-18] MEDS: cefTRIAXone 2 GM/NS 100 ML 2 GM/100 ML BAG IVPB (12:19)
--- NOTE | 2023-09-18 12:38 | P.PNIM_ITS ---
Progress Note: A&P Assessment and Plan (1) UTI (urinary tract infection): Qualifiers: Hematuria presence: without hematuria Urinary tract infection type: acute cystitis Qualified Code(s): N30.00 - Acute cystitis without hematuria Code(s): N39.0 - Urinary tract infection, site not specified Status: Acute Assessment and Plan: UA with positive nitrates, 1+ leukocyte esterase, 21-50 rbc's, 51-100 wbc's and 4+ bacteria. * Urine culture pending. * Rocephin initiated. * White blood cell count of 38.8. Continue to trend. * Blood cultures pending * Adjust antibiotic therapy to culture results. (2) Ureterolithiasis: Code(s): N20.1 - Calculus of ureter Status: Acute Assessment and Plan: patient presents to the ED on 09/13/2023 due to abdominal pain, nausea, vomiting and hematuria. * CT abdomen pelvis revealing a 8.3 x 9.8 mm right stone. * Urology consulted. * Anti emetics and analgesics p.r.n.. * Cystoscopy and stent placement on 09/15/2023. * Patient continuing to have lingering pain status post cystoscopy and stent placement, urology reconsulted. (3) Leukocytosis: Qualifiers: Leukocytosis type: unspecified Qualified Code(s): D72.829 - Elevated white blood cell count, unspecified Code(s): D72.829 - Elevated white blood cell count, unspecified Status: Acute Assessment and Plan: On admission patient had leukocytosis of 17.6. * White blood cell count continued to trend down. * On 09/17/2023 white blood cell count was 26.5 * Repeat UA, CT abdomen pelvis, lactic acid and IV fluids ordered. * On 09/18/2023 white blood cell count 38.8. UA suspicious for infection. (4) Hypertension: Qualifiers: Hypertension type: primary hypertension Qualified Code(s): I10 - Essential (primary) hypertension Code(s): I10 - Essential (primary) hypertension Status: Acute Assessment and Plan: * Resume home medications. 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 * Initiate hypoglycemic precautions * Hemoglobin A1c 7.5 (6) KAYLEE (obstructive sleep apnea): Code(s): G47.33 - Obstructive sleep apnea (adult) (pediatric) Status: Acute Assessment and Plan: * CPAP provided Subjective Date/time seen: 09/18/23 12:38 Interval history: patient states that she still having intermittent nausea. No vomiting today. She did have some episodes of vomiting yesterday. This could be related to her UTI infection. Continue on antibiotics for now. She complains of dysuria and difficulty with bladder emptying. She denies any abdominal pain. Continue to monitor for now. Exam Narrative: GENERAL: Comfortable, no acute distress, morbid obesity HENMT: moist mucous membranes EYES: EOM intact b/l NECK: no lymphadenopathy RESPIRATORY: clear to auscultation CARDIO: RRR GI: soft, nontender, bowel sounds present SKIN:
--- NOTE | 2023-09-18 12:38 | PM.IMPN ---
Progress Note: A&P Assessment and Plan (1) UTI (urinary tract infection): Qualifiers: Hematuria presence: without hematuria Urinary tract infection type: acute cystitis Qualified Code(s): N30.00 - Acute cystitis without hematuria Code(s): N39.0 - Urinary tract infection, site not specified Status: Acute Assessment and Plan: UA with positive nitrates, 1+ leukocyte esterase, 21-50 rbc's, 51-100 wbc's and 4+ bacteria. Urine culture pending. Rocephin initiated. White blood cell count of 38.8. Continue to trend. Blood cultures pending Adjust antibiotic therapy to culture results. (2) Ureterolithiasis: Code(s): N20.1 - Calculus of ureter Status: Acute Assessment and Plan: patient presents to the ED on 09/13/2023 due to abdominal pain, nausea, vomiting and hematuria. CT abdomen pelvis revealing a 8.3 x 9.8 mm right stone. Urology consulted. Anti emetics and analgesics p.r.n.. Cystoscopy and stent placement on 09/15/2023. Patient continuing to have lingering pain status post cystoscopy and stent placement, urology reconsulted. (3) Leukocytosis: Qualifiers: Leukocytosis type: unspecified Qualified Code(s): D72.829 - Elevated white blood cell count, unspecified Code(s): D72.829 - Elevated white blood cell count, unspecified Status: Acute Assessment and Plan: On admission patient had leukocytosis of 17.6. White blood cell count continued to trend down. On 09/17/2023 white blood cell count was 26.5 Repeat UA, CT abdomen pelvis, lactic acid and IV fluids ordered. On 09/18/2023 white blood cell count 38.8. UA suspicious for infection. (4) Hypertension: Qualifiers: Hypertension type: primary hypertension Qualified Code(s): I10 - Essential (primary) hypertension Code(s): I10 - Essential (primary) hypertension Status: Acute Assessment and Plan: Resume home medications. 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 Initiate hypoglycemic precautions Hemoglobin A1c 7.5 (6) KAYLEE (obstructive sleep apnea): Code(s): G47.33 - Obstructive sleep apnea (adult) (pediatric) Status: Acute Assessment and Plan: CPAP provided Subjective Date/time seen: 09/18/23 12:38 Interval history: patient states that she still having intermittent nausea. No vomiting today. She did have some episodes of vomiting yesterday. This could be related to her UTI infection. Continue on antibiotics for now. She complains of dysuria and difficulty with bladder emptying. She denies any abdominal pain. Continue to monitor for now. Exam Narrative: GENERAL: Comfortable, no acute distress, morbid obesity HENMT: moist mucous membranes EYES: EOM intact b/l NECK: no lymphadenopathy RESPIRATORY: clear to auscultation CARDIO: RRR GI: soft, nontender, bowel sounds present SKIN: no rashes EXTREMITIES: no edema, redness or tenderness Objective Data Vital Signs Vital Signs: Vital Signs - 24 hr 09/17/23 14:58 09/17/23 20:17 09/18/23 06:45 Temperature 97.9 F 97.4 F L 98.0 F Pulse Rate 100 120 H 91 Respiratory Rate 20 20 16 Blood Pressure 134/64 119/74 112/58 L Pulse Oximetry 97 100 99 Oxygen Delivery 09/18/23 09:43 09/18/23 08:00 Temperature Pulse Rate 91 Respiratory Rate Blood Pressure Pulse Oximetry Oxygen Deliver
[2023-09-18 12:41] LABS: Glucose Point of Care 305 mg/dl (65-105)
[2023-09-18 14:10] VITALS: BP 116/60; PULSE 88; RESP 16; TEMP 36.8; O2SAT 98
[2023-09-18 17:14] LABS: Glucose Point of Care 189 mg/dl (65-105)
[2023-09-18 20:16] VITALS: BP 101/52; PULSE 100; RESP 16; TEMP 36.4; O2SAT 99
[2023-09-18] MEDS: TOPIRAMATE 25 MG TABLET 50 MG BY MOUTH (20:18)
[2023-09-18] MEDS: INSULIN GLARGINE (*BKC) 100 UNITS/ML 75 UNITS SUB-Q (20:23)
[2023-09-18 20:39] LABS: Glucose Point of Care 271 mg/dl (65-105)
[2023-09-19] MEDS: HYDROcodone/acetaminophen (*CRX) 7.5-325 MG TABLET PO ×4 (04:33→22:16)
[2023-09-19 04:38] VITALS: BP 102/59; PULSE 88; RESP 16; TEMP 36.4; O2SAT 94
[2023-09-19 06:04] LABS: Basophils Absolute Auto 0.1 K/mm3 (0.0-0.1); Basophils Percent Auto 0.3 % (0.2-1.2); Eosinophils Absolute Auto 0.1 K/mm3 (0-0.3); Eosinophils Percent Auto 0.3 % (0-4.4); Hematocrit 40.5 % (37.0-47.0); Hemoglobin 12.6 g/dL (12.0-15.0); Immature Granulocyte Absolute 0.48 K/mm3 (0.00-0.031); Immature Granulocyte Percent A 1.8 % (0-0.5); Lymphocytes Absolute Auto 1.99 K/mm3 (0.9-3.2); Lymphocytes Percent Auto 7.6 % (18.3-44.2); Mean Corpuscular HGB Conc 31.1 g/dl (32-36); Mean Corpuscular Hemoglobin 29.4 pg (26-34); Mean Corpuscular Volume 94.6 fl (80-100); Mean Platelet Volume 10.5 fl (7.4-10.4); Monocytes Absolute Auto 3.7 K/mm3 (0.1-0.6); Monocytes Percent Auto 13.9 % (2.6-8.5); Neutrophils Percent Auto 76.1 % (45.5-73.1); Platelet Count Result 211 k/mm3 (150-375); Red Blood Count 4.28 M/mm3 (4.2-5.4); Red Cell Distribution Width 14.6 % (11.5-14.5); White Blood Count 26.3 K/mm3 (4.5-10.0)
[2023-09-19 06:17] LABS: Alanine Aminotransferase 25 U/L (6-35); Albumin Level 3.1 g/dL (3.5-5.1); Alkaline Phosphatase 41 U/L (38-126); Anion Gap 8 mmol/L (8-16); Aspartate Amino Transferase 20 U/L (14-36); Bilirubin,Total 0.7 mg/dL (0.2-1.3); Blood Urea Nitrogen 20 mg/dL (7-17); Carbon Dioxide 23 mmol/L (22-30); Chloride 105 mmol/L (98-107); Estimated CRCL calculation 95 ml/min; Estimated Glomerular Filt Rate 55; Glucose 185 mg/dL (65-110); Potassium 3.7 mmol/L (3.4-5.0); Sodium 136 mmol/L (137-145)
[2023-09-19 08:26] LABS: Glucose Point of Care 192 mg/dl (65-105)
[2023-09-19] MEDS: cefTRIAXone 2 GM/NS 100 ML 2 GM/100 ML BAG IVPB (09:31)
[2023-09-19 09:32] VITALS: PULSE 88
[2023-09-19] MEDS: ARIPiprazole 10 MG TABLET 20 MG PO (09:32)
[2023-09-19] MEDS: METOPROLOL SUCCINATE EXT REL 50 MG TABCR PO (09:32)
[2023-09-19] MEDS: oxyBUTYnin CHLORIDE XL 5 MG TAB.ER.24 PO (09:32)
[2023-09-19] MEDS: SPIRONOLACTONE 50 MG TABLET 200 MG PO (09:32)
[2023-09-19] MEDS: DESVENLAFAXINE SUCCINATE 50 MG TAB.ER.24H 100 MG PO (09:32)
[2023-09-19] MEDS: TOPIRAMATE 25 MG TABLET BY MOUTH (09:33)
[2023-09-19] MEDS: PANTOPRAZOLE 40 MG TABLET PO (09:33)
[2023-09-19] MEDS: ENOXAPARIN 40 MG/0.4 ML SYRINGE SUB-Q (09:33)
[2023-09-19] MEDS: SODIUM CHLORIDE 0.9% IV 1,000 ML 100 ML IV CONT ×2 (10:00→21:39)
[2023-09-19 12:52] LABS: Glucose Point of Care 240 mg/dl (65-105)
[2023-09-19] MEDS: INSULIN ASPART (*BKC) 100 UNITS/ML SUB-Q ×2 (13:03→21:37)
[2023-09-19] MEDS: ONDANSETRON INJ 4 MG/2 ML VIAL 8 MG IV PUSH (13:03)
[2023-09-19 14:00] VITALS: BP 105/59; PULSE 83; RESP 16; TEMP 35.8; O2SAT 97
--- NOTE | 2023-09-19 14:15 | PC.NURSE ---
On 09/19/23, the student, [Clinton Hedrick], provided care and completed [facility] documentation on this patient. I have reviewed the student's documentation and agree with the findings.
--- NOTE | 2023-09-19 14:43 | P.PNIM_ITS ---
Progress Note: A&P Assessment and Plan (1) UTI (urinary tract infection): Qualifiers: Urinary tract infection type: acute cystitis Hematuria presence: without hematuria Qualified Code(s): N30.00 - Acute cystitis without hematuria Code(s): N39.0 - Urinary tract infection, site not specified Status: Acute Assessment and Plan: UA with positive nitrates, 1+ leukocyte esterase, 21-50 rbc's, 51-100 wbc's and 4+ bacteria. * Urine culture with mixed Genitall chantel. Due to patient's symptoms and UA results will continue IV antibiotics. * Rocephin continued * White blood cell count of 26.3. Continue to trend. * Blood cultures no growth to date (2) Ureterolithiasis: Code(s): N20.1 - Calculus of ureter Status: Acute Assessment and Plan: patient presents to the ED on 09/13/2023 due to abdominal pain, nausea, vomiting and hematuria. * CT abdomen pelvis revealing a 8.3 x 9.8 mm right stone. * Urology consulted. * Anti emetics and analgesics p.r.n.. * Cystoscopy and stent placement on 09/15/2023. * Patient continuing to have lingering pain status post cystoscopy and stent placement, urology reconsulted. (3) Leukocytosis: Qualifiers: Leukocytosis type: unspecified Qualified Code(s): D72.829 - Elevated white blood cell count, unspecified Code(s): D72.829 - Elevated white blood cell count, unspecified Status: Acute Assessment and Plan: On admission patient had leukocytosis of 17.6. * white count of 26.3. Trending down. * Continue to monitor (4) Hypertension: Qualifiers: Hypertension type: primary hypertension Qualified Code(s): I10 - Essential (primary) hypertension Code(s): I10 - Essential (primary) hypertension Status: Acute Assessment and Plan: * Resume home medications. (5) Diabetes mellitus: Qualifiers: Diabetes mellitus type: type 2 Diabetes mellitus prison insulin use: with prison use Diabetes mellitus complication status: without complication Qualified Code(s): E11.9 - Type 2 diabetes mellitus without complications; Z79.4 - intermediate (current) use of insulin Code(s): E11.9 - Type 2 diabetes mellitus without complications Status: Acute Assessment and Plan: * Insulin Lispro sliding scale, Accu-checks qAc and HS and Hold oral hypoglycemics * Patient takes 75 units of Lantus q.h.s. * Initiate hypoglycemic precautions * Hemoglobin A1c 7.5 (6) KAYLEE (obstructive sleep apnea): Code(s): G47.33 - Obstructive sleep apnea (adult) (pediatric) Status: Acute Assessment and Plan: * CPAP provided Subjective Date/time seen: 09/19/23 14:43 Interval history: patient doing much better today. Will monitor overnight. If white count continues to trend down will discharge home on p.o. antibiotics. Due to patient's symptoms and lab results will continue to treat for UTI although urine culture did not grow anything. She is still having some aching pain in her flank area which stent was placed but other than that doing well. Exam Narrative: GENERAL: Comfortable, no acute distress, morbid obesity HENMT: moist mucous membranes EYES: EOM intact b/l NECK: no lymphadenopathy RESPIRATORY: clear to auscultation CARDIO: RRR GI: soft, nontender, bowel sounds present SKIN: no rashes EXTREMITIES: no edema, redness or tenderness Objective Data Vi
--- NOTE | 2023-09-19 14:43 | PM.IMPN ---
Progress Note: A&P Assessment and Plan (1) UTI (urinary tract infection): Qualifiers: Urinary tract infection type: acute cystitis Hematuria presence: without hematuria Qualified Code(s): N30.00 - Acute cystitis without hematuria Code(s): N39.0 - Urinary tract infection, site not specified Status: Acute Assessment and Plan: UA with positive nitrates, 1+ leukocyte esterase, 21-50 rbc's, 51-100 wbc's and 4+ bacteria. Urine culture with mixed Genitall chantel. Due to patient's symptoms and UA results will continue IV antibiotics. Rocephin continued White blood cell count of 26.3. Continue to trend. Blood cultures no growth to date (2) Ureterolithiasis: Code(s): N20.1 - Calculus of ureter Status: Acute Assessment and Plan: patient presents to the ED on 09/13/2023 due to abdominal pain, nausea, vomiting and hematuria. CT abdomen pelvis revealing a 8.3 x 9.8 mm right stone. Urology consulted. Anti emetics and analgesics p.r.n.. Cystoscopy and stent placement on 09/15/2023. Patient continuing to have lingering pain status post cystoscopy and stent placement, urology reconsulted. (3) Leukocytosis: Qualifiers: Leukocytosis type: unspecified Qualified Code(s): D72.829 - Elevated white blood cell count, unspecified Code(s): D72.829 - Elevated white blood cell count, unspecified Status: Acute Assessment and Plan: On admission patient had leukocytosis of 17.6. white count of 26.3. Trending down. Continue to monitor (4) Hypertension: Qualifiers: Hypertension type: primary hypertension Qualified Code(s): I10 - Essential (primary) hypertension Code(s): I10 - Essential (primary) hypertension Status: Acute Assessment and Plan: Resume home medications. (5) Diabetes mellitus: Qualifiers: Diabetes mellitus type: type 2 Diabetes mellitus nursing home insulin use: with ferry terminal supervisor use Diabetes mellitus complication status: without complication Qualified Code(s): E11.9 - Type 2 diabetes mellitus without complications; Z79.4 - medical terminologist (current) use of insulin Code(s): E11.9 - Type 2 diabetes mellitus without complications Status: Acute Assessment and Plan: Insulin Lispro sliding scale, Accu-checks qAc and HS and Hold oral hypoglycemics Patient takes 75 units of Lantus q.h.s. Initiate hypoglycemic precautions Hemoglobin A1c 7.5 (6) KAYLEE (obstructive sleep apnea): Code(s): G47.33 - Obstructive sleep apnea (adult) (pediatric) Status: Acute Assessment and Plan: CPAP provided Subjective Date/time seen: 09/19/23 14:43 Interval history: patient doing much better today. Will monitor overnight. If white count continues to trend down will discharge home on p.o. antibiotics. Due to patient's symptoms and lab results will continue to treat for UTI although urine culture did not grow anything. She is still having some aching pain in her flank area which stent was placed but other than that doing well. Exam Narrative: GENERAL: Comfortable, no acute distress, morbid obesity HENMT: moist mucous membranes EYES: EOM intact b/l NECK: no lymphadenopathy RESPIRATORY: clear to auscultation CARDIO: RRR GI: soft, nontender, bowel sounds present SKIN: no rashes EXTREMITIES: no edema, redness or tenderness Objective Data Vital Signs Vital Signs: Vital Signs - 24 hr 09/18/23 20:16 09/19/23 04:38 09/19/23 09:30 Temperature 97.5 F L 97.5 F L Pulse Rate 100 88 Respiratory Rate 16 16 Blood Pressure 101/52 L 102/59 L Pulse Oximetry 99 94 Oxygen Delivery Room Air 09/19/23 09:32 09/19/23 14:00 Temperature 96.5 F L Pulse Rate 88 83 Respiratory Rate 16 Blood Pressure 105/59 L Pulse Oximetry 97 Oxygen Delivery Intake/Output Intake/Output: Intake & Output 09/16/23 09/17/23
[2023-09-19 17:29] LABS: Glucose Point of Care 195 mg/dl (65-105)
[2023-09-19 20:07] VITALS: BP 102/66; PULSE 87; RESP 16; TEMP 36.6; O2SAT 96
[2023-09-19 20:11] LABS: Glucose Point of Care 220 mg/dl (65-105)
[2023-09-19] MEDS: INSULIN GLARGINE (*BKC) 100 UNITS/ML 75 UNITS SUB-Q (21:38)
[2023-09-19] MEDS: TOPIRAMATE 25 MG TABLET 50 MG BY MOUTH (21:39)
[2023-09-20] MEDS: HYDROcodone/acetaminophen (*CRX) 7.5-325 MG TABLET PO (05:13)
[2023-09-20 05:16] LABS: Basophils Absolute Auto 0.1 K/mm3 (0.0-0.1); Basophils Percent Auto 0.5 % (0.2-1.2); Eosinophils Absolute Auto 0.1 K/mm3 (0-0.3); Hematocrit 39.5 % (37.0-47.0); Hemoglobin 12.3 g/dL (12.0-15.0); Immature Granulocyte Absolute 0.22 K/mm3 (0.00-0.031); Immature Granulocyte Percent A 1.5 % (0-0.5); Lymphocytes Absolute Auto 2.17 K/mm3 (0.9-3.2); Mean Corpuscular HGB Conc 31.1 g/dl (32-36); Mean Corpuscular Hemoglobin 29.6 pg (26-34); Mean Platelet Volume 10.7 fl (7.4-10.4); Monocytes Absolute Auto 1.7 K/mm3 (0.1-0.6); Neutrophils Absolute Auto 10.2 K/mm3 (1.3-6.7); Platelet Count Result 235 k/mm3 (150-375); Red Blood Count 4.16 M/mm3 (4.2-5.4); Red Cell Distribution Width 14.4 % (11.5-14.5); White Blood Count 14.5 K/mm3 (4.5-10.0)
[2023-09-20 05:30] LABS: Anion Gap 8 mmol/L (8-16); Blood Urea Nitrogen 14 mg/dL (7-17); Calcium 8.3 mg/dL (8.4-10.2); Carbon Dioxide 26 mmol/L (22-30); Chloride 107 mmol/L (98-107); Estimated CRCL calculation 104 ml/min; Estimated Glomerular Filt Rate > 60; Glucose 159 mg/dL (65-110); Potassium 3.9 mmol/L (3.4-5.0); Sodium 141 mmol/L (137-145)
[2023-09-20 06:00] VITALS: BP 106/60; PULSE 69; RESP 16; TEMP 36.4; O2SAT 98
[2023-09-20 08:11] LABS: Glucose Point of Care 164 mg/dl (65-105)
[2023-09-20 08:32] VITALS: BP 100/53; PULSE 78; RESP 16; O2SAT 97
[2023-09-20] MEDS: SODIUM CHLORIDE 0.9% IV 1,000 ML 100 ML IV CONT (08:36)
[2023-09-20] MEDS: ARIPiprazole 10 MG TABLET 20 MG PO (08:36)
[2023-09-20] MEDS: DESVENLAFAXINE SUCCINATE 50 MG TAB.ER.24H 100 MG PO (08:37)
[2023-09-20] MEDS: PANTOPRAZOLE 40 MG TABLET PO (08:37)
[2023-09-20] MEDS: oxyBUTYnin CHLORIDE XL 5 MG TAB.ER.24 PO (08:37)
[2023-09-20] MEDS: TOPIRAMATE 25 MG TABLET BY MOUTH (08:37)
[2023-09-20] MEDS: cefTRIAXone 2 GM/NS 100 ML 2 GM/100 ML BAG IVPB (08:37)
[2023-09-20] MEDS: ENOXAPARIN 40 MG/0.4 ML SYRINGE SUB-Q (08:43)
[2023-09-20] MEDS: ONDANSETRON INJ 4 MG/2 ML VIAL 8 MG IV PUSH (08:43)
--- NOTE | 2023-09-20 11:06 | PM.DS ---
DS: Admitting Diagnosis Discharge Date 09/20/23 Admitting Diagnosis right ureterolithiasis DS: Discharge Diagnosis Discharge Diagnosis (1) UTI (urinary tract infection): Qualifiers: Urinary tract infection type: acute cystitis Hematuria presence: without hematuria Qualified Code(s): N30.00 - Acute cystitis without hematuria Code(s): N39.0 - Urinary tract infection, site not specified Status: Acute (2) Ureterolithiasis: Code(s): N20.1 - Calculus of ureter Status: Acute (3) Leukocytosis: Qualifiers: Leukocytosis type: unspecified Qualified Code(s): D72.829 - Elevated white blood cell count, unspecified Code(s): D72.829 - Elevated white blood cell count, unspecified Status: Acute (4) Hypertension: Qualifiers: Hypertension type: primary hypertension Qualified Code(s): I10 - Essential (primary) hypertension Code(s): I10 - Essential (primary) hypertension Status: Acute (5) Diabetes mellitus: Qualifiers: Diabetes mellitus type: type 2 Diabetes mellitus 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 renewal 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 insulin 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: with termite renewal inspector use Diabetes mellitus complication status: without complication Qualified Code(s): E11.9 - Type 2 diabetes mellitus without complications; Z79.4 - termite exterminator helper (current) use of insulin Code(s): E11.9 - Type 2 diabetes mellitus without complications Status: Acute (6) KAYLEE (obstructive sleep apnea): Code(s): G47.33 - Obstructive sleep apnea (adult) (pediatric) Status: Acute DS: Summary Hospital Course Hospital Course: This is a 37-year-old female with past medical history of bronchitis, anxiety, depression, GERD, migraines, hyperlipidemia, diabetes, PCOS, KAYLEE, PTSD a TIA the presented to the ED on 09/13/2023 due to right-sided flank pain. She was found to have a a obstructing 8.3 x 3.8 mm right UPJ stone. Urology was consulted. Patient underwent cystoscopy and stent placement on 09/13/2023. Patient did have SAMUEL due to kidney stone and elevated white blood cell count. Looking back through patient's previous labs she was found to have white blood cell count ranging between 14 and 16 that seemed to be her normal. She did have lingering pain after the cystoscopy and she was kept for a couple more days. On 09/17/2023 she had nausea vomiting and a UA was repeated. UA looks suspicious for infection and she also had leukocytosis peaking at 38.8. She was started on Rocephin at that time and was treated for 3 days. Her urine culture came back negative. Her primary blood cultures are no growth after 48 hours. Her white count went down to 14 after antibiotic therapy was initiated. Her labs and vital signs are stable and she is medically cleared for discharge at this time. Time Spent with Patient Time attestation: Total time spent providing and/or coordinating discharge services: Exam Narrative: GENERAL: Comfortable, no acute distress, morbid obesity HENMT: moist mucous membranes EYES: EOM intact b/l NECK: no lymphadenopathy RESPIRATORY: clear to auscultation CARDIO: RRR GI: soft, nontender, bowel sounds present SKIN: no rashes EXTREMITIES: no edema, redness or tenderness DS: Data Data Completed and Pending Labs on day of discharge: Labs from last 24 hours 09/20/23 09/20/23 09/19/23 08:03 05:01 20:06 WBC 14.5 H RBC 4.16 L Hgb 12.3 Hct 39.5 MCV 95.0 MCH 29.6 MCHC 31.1 L RDW 14.4 Plt Count 235 MPV 10.7 H Immature Gran % (Auto) 1.5 H Neut % (Auto) 70.0 Lymph % (Auto) 15.0 L [place] % (Auto) 12.0 H Eos % (Auto) 1.0 Baso % (Auto) 0.5 Lymph # (Auto) 2.17 [place] # (Auto) 1.7 H Eos # (Auto) 0.1 Baso # (Auto) 0.1 Abs Immat Gran (auto) 0.22 H Absolute Neuts (auto) 10.2 H Absolute Nucleated RBC 0.0 Nucleated RBC % 0.0 Sodium 141 Potassium 3.9 Chloride 107 Carbon Dioxide 26 Anion Gap 8 BUN 14 D Creatinine 1.00 E
[2023-09-20 12:04] LABS: Glucose Point of Care 173 mg/dl (65-105)
[2023-09-20 14:00] VITALS: BP 103/52; PULSE 77; RESP 16; TEMP 36.4; O2SAT 94
== END 2023-09-20 14:55 | disposition home or self-care (01) | DRG 660 ==
LOC: ANHED 09-13 00:57 → ANH2MED 09-13 01:05
PROVIDERS: Nurse Practitioner Acute Care; Urology; Admitting Provider Internal Medicine; Emergency Provider Physician Assistant; PCP Family Medicine; Visit Provider Internal Medicine Critical Care Medicine
PROC: 0T768DZ Dilation of Right Ureter with Intraluminal Device, Via Natural or Artificial Opening Endoscopic (ICD-10-PCS; CPT 52352; principal; 2023-09-13 14:00)
DX: N20.1 Calculus of ureter (principal); E66.2 Morbid (severe) obesity with alveolar hypoventilation; Z68.43 Body mass index [BMI] 50.0-59.9, adult; N30.00 Acute cystitis without hematuria; K21.9 Gastro-esophageal reflux disease without esophagitis; E78.5 Hyperlipidemia, unspecified; E11.9 Type 2 diabetes mellitus without complications; F17.290 Nicotine dependence, other tobacco product, uncomplicated; F41.9 Anxiety disorder, unspecified; F32.A Depression, unspecified; F43.10 Post-traumatic stress disorder, unspecified; I10 Essential (primary) hypertension; Z86.73 Personal history of transient ischemic attack (TIA), and cerebral infarction without residual deficits; Z90.49 Acquired absence of other specified parts of digestive tract; Z79.4 Long term (current) use of insulin; Z79.84 Long term (current) use of oral hypoglycemic drugs
CPT/HCPCS: 36415; 74176; 74420; 80048; 80053; 81001; 81025; 82948; 83605; 83735; 85025; 87040; 87086; 87088; 96361; 96374; 96375; 96376; 99285; A9270; C1758; C1769; C2617; J0690; J0696; J1170; J1650; J1741; J1815; J1885; J2250; J2270; J2405; J2704; J3010; J7030; J7040; J7120; Q9966

== ENCOUNTER 2023-09-23 08:34 | Outpatient (CLI) | payer OTHER, MEDICAID, SELFPAY ==
[2023-09-23 09:08] LABS: Hematocrit 44.3 % (37.0-47.0); Hemoglobin 14.1 g/dL (12.0-15.0); Mean Corpuscular HGB Conc 31.8 g/dl (32-36); Mean Corpuscular Hemoglobin 29.1 pg (26-34); Mean Corpuscular Volume 91.3 fl (80-100); Mean Platelet Volume 10.4 fl (7.4-10.4); Platelet Count Result 372 k/mm3 (150-375); Red Blood Count 4.85 M/mm3 (4.2-5.4); Red Cell Distribution Width 14.2 % (11.5-14.5); White Blood Count 19.9 K/mm3 (4.5-10.0)
[2023-09-23 09:23] LABS: Alanine Aminotransferase 23 U/L (6-35); Albumin Level 3.9 g/dL (3.5-5.1); Alkaline Phosphatase 46 U/L (38-126); Anion Gap 13 mmol/L (8-16); Aspartate Amino Transferase 18 U/L (14-36); Bilirubin,Total 0.9 mg/dL (0.2-1.3); Blood Urea Nitrogen 7 mg/dL (7-17); Calcium 9.1 mg/dL (8.4-10.2); Carbon Dioxide 23 mmol/L (22-30); Chloride 104 mmol/L (98-107); Cholesterol 114 mg/dL (0-200); Estimated Glomerular Filt Rate > 60; Glucose 156 mg/dL (65-110); HDL Direct 22 mg/dL; Potassium 3.6 mmol/L (3.4-5.0); Sodium 140 mmol/L (137-145); Triglycerides 122 mg/dL (<150)
[2023-09-23 09:40] LABS: Creatinine Urine 51.4 mg/dL
[2023-09-23 09:44] LABS: MALB Creatinine Ratio 102.3 mg/g (0-30); Microalbumin Urine Random 52.6 mg/L (0-16.7)
[2023-09-23 09:44] LABS: LDL Cholesterol Direct 68 mg/dL
[2023-09-23 09:45] LABS: Free T4 Free Thyroxine 1.78 ng/mL (0.78-2.19)
== END 2023-09-23 08:35 | disposition home or self-care (01) ==
LOC: ANHLAB 08:37
PROVIDERS: PCP Family Medicine; Visit Provider Nurse Practitioner Family
DX: R79.89 Other specified abnormal findings of blood chemistry (principal); E11.9 Type 2 diabetes mellitus without complications; E66.01 Morbid (severe) obesity due to excess calories; E87.1 Hypo-osmolality and hyponatremia; I10 Essential (primary) hypertension; Z68.43 Body mass index [BMI] 50.0-59.9, adult
CPT/HCPCS: 36415; 80053; 80061; 82043; 82306; 82607; 84439; 84443; 84681; 85027

== ENCOUNTER 2023-09-23 15:29 | Emergency (ER) | payer OTHER, MEDICAID, SELFPAY ==
[2023-09-23 15:29] VITALS: BP 151/84; PULSE 101; RESP 20; TEMP 36.4; O2SAT 100
--- NOTE | 2023-09-23 15:59 | ED.GENADULT ---
HPI - General Adult General Chief complaint: Recheck/Abnormal Lab/Rx <Gila Walker March, KEYMODULE ASSEMBLY MACHINE TENDER - Last Filed: 09/23/23 16:04> Stated complaint: abnl labs - elevated wbc count <Gila Walker March - Last Filed: 09/23/23 16:04> Time Seen by Provider: 09/23/23 21:20 <Gila Walker March, KEYMODULE ASSEMBLY MACHINE TENDER - Last Filed: 09/23/23 16:04> Source: patient and old records reviewed <Paulina De La Garza PA-C - Last Filed: 09/24/23 01:01> Mode of arrival: ambulatory <Paulina De La Garza PA-C - Last Filed: 09/24/23 01:01> Limitations: no limitations <Paulina De La Garza PA-C - Last Filed: 09/24/23 01:01> History of Present Illness HPI narrative: Angela Duncan is a 37 y/o female who presents [facility] reports of being admitted here on 09/12- 09/21 for a kidney stone, she had a stent placed and then developed an infection. She was d/c home on the and is scheduled to have surgery on the here wt Dr. Simons to have the stone removed and have the stent replaced. She was not d/c home with any antibiotics she states that she did do 3 days of IV antibiotics while in the hospital. Denies any known fever/chills Reports she has constant dysuria with hematuria that has been present since the stent placed she adds that she is having some intermittent increased pain to the right flank area. She had routine labs drawn today for her DM and were called to return here due to an elevated WBC. <Gila Walker March, - Last Filed: 09/23/23 16:04> Related Data Home medications: Home Medications Medication Instructions Recorded Confirmed hydroxyzine pamoate 25 mg capsule 25 mg PO TID PRN Anxiety 09/21/19 09/22/23 aripiprazole 20 mg tablet 20 mg PO DAILY 07/18/20 09/22/23 desvenlafaxine succinate 100 mg 100 mg PO DAILY 07/18/20 09/22/23 tablet,extended release 24 hr insulin aspart U-100 100 unit/mL 6 unit subcut DAILY 09/13/23 09/22/23 (3 mL) subcutaneous pen (Novolog FlexPen U-100 Insulin aspart) lisinopril 5 mg tablet 5 mg PO DAILY 09/13/23 09/22/23 metoprolol succinate 50 mg 50 mg PO DAILY 09/13/23 09/22/23 tablet,extended release 24 hr spironolactone 100 mg tablet 200 mg PO DAILY 09/13/23 09/22/23 tirzepatide 5 mg/0.5 mL 2.5 mg subcut WEEKLY 09/13/23 09/22/23 subcutaneous pen injector (Mounjaro) <Gila Walker March, KEYMODULE ASSEMBLY MACHINE TENDER - Last Filed: 09/23/23 16:04> Allergies/adverse reactions: Allergies Allergy/AdvReac Type Severity Reaction Status Date / Time clindamycin Allergy Intermediate Hives Verified 09/23/23 21:41 Sulfa (Sulfonamide Allergy Intermediate Hives Verified 09/23/23 21:41 Antibiotics) <Gila Walker March, KEYMODULE ASSEMBLY MACHINE TENDER - Last Filed: 09/23/23 16:04> Review of Systems Review of Systems: CONSTITUTIONAL: Denies fever, chills, or sweats. CARDIOVASCULAR: Denies chest pain. RESPIRATORY: Denies dyspnea. GASTROINTESTINAL: See HPI. GENITOURINARY: see HPI. SKIN: Denies rash or itching. MUSCULOSKELETAL: See HPI. NEUROLOGIC: Denies headache, numbness, or weakness. <Paulina De La Garza PA-C - Last Filed: 09/24/23 01:01> All systems reviewed & are unremarkable except as noted in HPI and below <Paulina De La Garza PA-C - Last Filed: 09/24/23 01:01> [facility] Past Medical History Medical History: Medical History Acute bronchitis Allergies Anxiety Change in bowel habit Chest wall syndrome Depression Seeing psychiatry Diarrhea Dyspnea Eczema Elbow fracture, right Flatulence, eructation and gas pain GERD (gastroesophageal reflux disease) Headache, migraine Hyperlipidemia associated with type 2 diabetes mellitus Hypertension Hypoventilation associated with obesity Left ureteral stone Leg fracture, left Migraine Seeing neurology KAYLEE (obstructive sleep apnea) PCOS (polycystic ovarian syndrome) Pleuritic chest pain Pneumonia due to COVID-19 virus Post-operative complication PTSD (post-traumatic stress disorder) TIA (transient ischem
[2023-09-23 16:10] LABS: Basophils Absolute Auto 0.1 K/mm3 (0.0-0.1); Basophils Percent Auto 0.4 % (0.2-1.2); Eosinophils Absolute Auto 0.2 K/mm3 (0-0.3); Hematocrit 43.7 % (37.0-47.0); Hemoglobin 13.8 g/dL (12.0-15.0); Immature Granulocyte Absolute 0.45 K/mm3 (0.00-0.031); Immature Granulocyte Percent A 2.5 % (0-0.5); Lymphocytes Absolute Auto 3.08 K/mm3 (0.9-3.2); Lymphocytes Percent Auto 16.9 % (18.3-44.2); Mean Corpuscular HGB Conc 31.6 g/dl (32-36); Mean Corpuscular Volume 91.8 fl (80-100); Mean Platelet Volume 10.3 fl (7.4-10.4); Monocytes Absolute Auto 1.8 K/mm3 (0.1-0.6); Monocytes Percent Auto 9.8 % (2.6-8.5); Neutrophils Absolute Auto 12.6 K/mm3 (1.3-6.7); Neutrophils Percent Auto 69.4 % (45.5-73.1); Platelet Count Result 357 k/mm3 (150-375); Red Blood Count 4.76 M/mm3 (4.2-5.4); Red Cell Distribution Width 14.1 % (11.5-14.5); White Blood Count 18.2 K/mm3 (4.5-10.0)
[2023-09-23 16:15] LABS: Appearance Urine Clear (Clear); Bacteria Urine None Seen /hpf; Bilirubin Urine Negative (Negative); Blood Urine 1+ (Negative); Color Urine Yellow (Yellow); Glucose Urine UA 3+ mg/dL (Negative); Ketones Urine Negative (Negative); Leukocyte Esterase Ur Negative LEU/UL (Negative); Nitrate Urine Negative (Negative); Non Pathogenic Casts 0-2; Protein Urine Negative (Negative); Specific Grav Ur 1.025 (1.001-1.035); Squamous Epithelial Cell Urine None seen /hpf (Few); Urobilinogen Urine 0.2 mg/dL (<2.0); pH Urine 6.5 (5.0-9.0)
[2023-09-23 16:17] LABS: Add Urine Microscopic? YES
[2023-09-23 16:21] LABS: Alanine Aminotransferase 23 U/L (6-35); Albumin Level 3.8 g/dL (3.5-5.1); Alkaline Phosphatase 44 U/L (38-126); Anion Gap 14 mmol/L (8-16); Aspartate Amino Transferase 17 U/L (14-36); Bilirubin,Total 0.6 mg/dL (0.2-1.3); Blood Urea Nitrogen 7 mg/dL (7-17); Calcium 8.8 mg/dL (8.4-10.2); Carbon Dioxide 19 mmol/L (22-30); Chloride 104 mmol/L (98-107); Estimated CRCL calculation 145 ml/min; Estimated Glomerular Filt Rate > 60; Glucose 313 mg/dL (65-110); Lipase 244 U/L (23-300); Potassium 3.6 mmol/L (3.4-5.0); Sodium 137 mmol/L (137-145)
[2023-09-23 16:49] LABS: Lactic Acid Reflex 2.3 mmol/L (0.7-2.0)
[2023-09-23 19:34] LABS: Reflex Lactic Acid Yes or No Add Lactic
[2023-09-23 21:40] VITALS: BP 126/79; PULSE 100; O2SAT 100
[2023-09-23] MEDS: ONDANSETRON INJ 4 MG/2 ML VIAL IV PUSH (23:33)
[2023-09-23] MEDS: MORPHINE SULFATE (*CRX) 4 MG/ML INJ IV PUSH (23:33)
[2023-09-23] MEDS: SODIUM CHLORIDE 0.9% IV 1,000 ML 999 ML IV CONT ×2 (23:34)
[2023-09-23 23:39] VITALS: BP 126/81; PULSE 97; O2SAT 100
[2023-09-23 23:50] LABS: Lactic Acid 1.1 mmol/L (0.7-2.0)
[2023-09-24 00:57] VITALS: BP 121/74; PULSE 89; RESP 18; O2SAT 100
[2023-09-24] MEDS: ONDANSETRON INJ 4 MG/2 ML VIAL IV PUSH (01:11)
[2023-09-24] MEDS: KETOROLAC 30 MG/ML VIAL (*BKC) IV PUSH (01:11)
== END 2023-09-24 01:15 | disposition home or self-care (01) ==
PROVIDERS: Emergency Medicine; Nurse Practitioner Family; Emergency Provider Physician Assistant; PCP Family Medicine
DX: N20.1 Calculus of ureter (principal); D72.829 Elevated white blood cell count, unspecified; I10 Essential (primary) hypertension; E78.5 Hyperlipidemia, unspecified; E11.9 Type 2 diabetes mellitus without complications; F17.210 Nicotine dependence, cigarettes, uncomplicated; Z96.0 Presence of urogenital implants; Z86.73 Personal history of transient ischemic attack (TIA), and cerebral infarction without residual deficits
CPT/HCPCS: 36415; 80053; 80061; 81001; 81025; 82043; 82306; 82607; 83605; 83690; 84439; 84443; 84681; 85025; 85027; 87086; 87088; 96361; 96374; 96375; 99284; J1885; J2270; J2405; J7030

== ENCOUNTER 2023-09-25 01:30 | Day surgery (SDC) | payer OTHER, MEDICAID, SELFPAY ==
[2023-09-22 10:16] VITALS: BMI 53.2
--- NOTE | 2023-09-22 10:23 | PC.NURSE ---
Report to the Outpatient Waiting Room, entrance under the green pavilion located off [facility], at time 0730 on date 09/25/23. Planned Procedure Time: 0930. Time changes happen often and if your time is changed the preop area will call you the afternoon before. - You and your visitor will be asked to self-screen and do not enter if you have any COVID symptoms. - A mask is optional within the hospital at this time. Patients may have clear liquids (water, carbonated beverages, clear teas, apple juice) until 3 hours prior to surgery with a maximum of 20 ounces. - No food from midnight until time of surgery Take the following medications with a SIP of water the morning of surgery: INHALER IF NEEDED, ARIPIPRAZOLE, DESVENLAFAXINE, METOPROLOL, TOPIRAMATE DO NOT STOP ANY OF YOUR OTHER PRESCRIPTION MEDICATIONS PRIOR TO SURGERY ?EXCEPT THE FOLLOWING Medications to discontinue per physician: VITAMINS Date to take last dose: NO MORE UNTIL AFTER SURGERY Please no make-up, nail malaysian, hairspray, perfume, deodorant, or body powder the day of surgery. No jewelry (including any body piercings) or valuables the day of surgery, leave them at home. Please take a shower or bath the night before, or the morning of, surgery with an antibacterial soap. Wear comfortable, loose fitting clothing. - Jewelry must be removed prior to entering the operating room. Rings and piercings that are not removed may be cut off. - The hospital will not accept responsibility for valuables. - Please leave all valuables, including medications, at home the day of surgery. If you are going home after surgery, a licensed petrol tanker driver must drive you home. - NO public transportation without another adult if you receive anesthesia. - We recommend that an adult stay with you for 24 hours following discharge. - We also recommend that you do not drive, make important decision, drink alcoholic beverages, or take any drugs that were not prescribed by your health care provider for at least 24 hours after your discharge time. Follow any additional instructions given to you from your surgeon. If you or anyone in your household have experienced Covid symptoms in the past week, please notify your surgeon or the nurse liaison at the phone number below for possible testing. Telephone instructions given to PT - GLENDA TOBIAS and asked if any additional questions and then verbalized understanding. Patient advised to call surgeon office or pre surgery nurse liaison [phone] if any additional questions.
[2023-09-25] VITALS (8 sets, daily range): BP systolic 115–135; BP diastolic 67–92; PULSE 85–101; RESP 16–20; TEMP 36.3; O2SAT 95–100; BMI 52.4
--- NOTE | ~2023-09-25 | XR_ITS ---
EXAMINATION: XR stent kub - surgery DATE: 09/25/2023 10:05 INDICATION: Right ureteral stone. TECHNIQUE: 5 intraoperative fluoroscopic views of the abdomen and pelvis were obtained. I was not pre sent. Fluoroscopy exposure time was 16 seconds. COMPARISON: CT abdomen and pelvis 09/17/2023 FINDINGS: Initial images demonstrate a right internal ureteral stent and stone in the proximal right ureter. The final images demonstrate a right internal ureteral stent in expected position. IMPRESSION: 1. Right ureteral stone extraction. 2. New right internal ureteral stent in expected position. Reviewed, dictated and finalized at location A. T BUILDER
--- NOTE | 2023-09-25 06:19 | WPDHPUPDATE1 ---
History and Physical Update Update Date/Time: 09/25/23 06:19 History and Physical has been reviewed, including an updated exam of the patient. There are NO changes in the patient's condition. Risks, benefits, and alternatives have been discussed and questions answered. Patient agrees to proceed with procedure.
[2023-09-25] MEDS: LACTATED RINGERS 1,000 ML 30 ML IV CONT (08:15)
--- NOTE | 2023-09-25 08:16 | WPDANESEPPF ---
Anes - Initial Pre Proc Eval Procedure: Operation Date: 09/25/23 09:30 Proposed Procedures p Cystoscopy, Right Ureteroscopy, Possible Right Retrograde Pyelogram, Possible Right Stone Extraction, Possible Right Stent Removal/Replacement, Possible Holmium Laser - Simon Simons MD Date/Time: 09/25/23 08:16 Surgeon: Simon Simons MD Pre Op Diagnosis: right renal stone Patient Data Age: 37 Gender: F Height: 1.7 m Weight: 154.25 kg Allergies Allergy/AdvReac Type Severity Reaction Status Date / Time clindamycin Allergy Intermediate Hives Verified 09/23/23 21:41 Sulfa (Sulfonamide Allergy Intermediate Hives Verified 09/23/23 21:41 Antibiotics) Home Medications Medication Instructions Recorded Confirmed Type hydroxyzine pamoate 25 mg capsule 25 mg PO TID PRN Anxiety 09/21/19 09/22/23 History aripiprazole 20 mg tablet 20 mg PO DAILY 07/18/20 09/22/23 History desvenlafaxine succinate 100 mg 100 mg PO DAILY 07/18/20 09/22/23 History tablet,extended release 24 hr mecobalamin (vitamin B12) 5,000 See Rx Instructions PO .COMPLEX 04/17/22 09/22/23 Rx mcg disintegrating tablet #90 tabs pen needle, diabetic 32 gauge x #100 ea 05/05/22 09/13/23 Rx 1/6 (NovoFine Plus) omeprazole 20 mg capsule,delayed 20 mg PO DAILY #90 caps 01/20/23 09/22/23 Rx release blood sugar diagnostic (OneTouch #400 ea 02/05/23 09/13/23 Rx Verio test strips) lancets 33 gauge (OneTouch Delica #600 ea 02/05/23 09/13/23 Rx Plus Lancet) insulin degludec 200 unit/mL (3 See Rx Instructions .Route 03/18/23 09/22/23 Rx mL) subcutaneous pen (Tresiba .COMPLEX #9 mL FlexTouch U-200 insulin) empagliflozin 25 mg tablet 25 mg PO DAILY #90 tabs 04/17/23 09/22/23 Rx (Jardiance) pen needle, diabetic 32 gauge x #100 ea 05/26/23 09/13/23 Rx /32 (Pen Needle) metformin 1,000 mg tablet 1,000 mg PO BID #180 tabs 06/22/23 09/22/23 Rx ubrogepant 100 mg tablet (Ubrelvy) 100 mg PO ONCE PRN migraine 07/03/23 09/22/23 Rx headache #16 tabs atorvastatin 10 mg tablet 10 mg PO DAILY #90 tabs 07/22/23 09/22/23 Rx topiramate 50 mg tablet See Rx Instructions .Route 08/12/23 09/22/23 Rx .COMPLEX #270 tabs albuterol sulfate 90 mcg/actuation 2 puff inhalation QID PRN 08/15/23 09/22/23 Rx aerosol inhaler shortness of breath or wheezing #8.5 grams ondansetron 4 mg disintegrating 4 mg PO Q8H PRN nausea and 09/02/23 09/22/23 Rx tablet vomiting #10 tabs blood-glucose meter,continuous #1 ea 09/09/23 09/13/23 Rx (Dexcom G6 Food Service Representative) blood-glucose sensor (Dexcom G6 #9 ea 09/09/23 09/13/23 Rx Sensor device) blood-glucose transmitter (Dexcom #1 ea 09/09/23 09/13/23 Rx G6 Transmitter device) insulin aspart U-100 100 unit/mL 6 unit subcut DAILY 09/13/23 09/22/23 History (3 mL) subcutaneous pen (Novolog FlexPen U-100 Insulin aspart) lisinopril 5 mg tablet 5 mg PO DAILY 09/13/23 09/22/23 History metoprolol succinate 50 mg 50 mg PO DAILY 09/13/23 09/22/23 History tablet,extended release 24 hr spironolactone 100 mg tablet 200 mg PO DAILY 09/13/23 09/22/23 History tirzepatide 5 mg/0.5 mL 2.5 mg subcut WEEKLY 09/13/23 09/22/23 History subcutaneous pen injector (Marshall) ergocalciferol (vitamin D2) 1,250 1,250 mcg PO WEEKLY 14 weeks #14 09/23/23 Rx mcg (50,000 unit) capsule (Drisdol) caps hydrocodone 5 mg-acetaminophen 325 1 tablet PO Q6H PRN pain #10 tabs 09/24/23 Rx mg tablet ondansetron 4 mg disintegrating 4 mg PO Q8H PRN nausea and 09/24/23 Rx tablet vomiting #10 tabs Patient hx anesthesia problems: none Family hx anesthesia problems: none Results Review: All pre-operative results and documents have been reviewed as part of the pre-operative evaluation. [facility] Past Medical History Medical History Acute bronchitis Allergies Anxiety Change in bowel habit Chest wall syndrome Depression Seeing psychiatry Diarrhea Dyspnea Eczema E
[2023-09-25] MEDS: SCOPOLAMINE 1.5 MG PATCH TRANSDERM (08:37)
--- NOTE | 2023-09-25 08:50 | SUR.PREOP ---
0850- Dr. Brizuela made aware patient's BG 214 in pre op. No further orders at this time.
[2023-09-25 08:51] LABS: Glucose Point of Care 214 mg/dl (65-105)
[2023-09-25] MEDS: ceFAZolin 3 GM/D5W 100 ML 100 ML IVPB (09:22)
--- NOTE | 2023-09-25 10:03 | W.PM.PROC2 ---
Procedure Note - Detailed Date of Procedure 09/25/23 Pre-op Diagnosis Right renal stone Post-op Diagnosis Same Procedure Performed Cystoscopy, right ureteral stent removal, right ureteroscopy with laser lithotripsy, stone extraction and stent replacement Surgeon Simon Simons MD Anesthesia General Description of Procedure patient brought the op suite she has prepped draped in routine sterile fashion while dorsal lithotomy position after the uneventful induction of a general LMA anesthetic. Cystoscopy was undertaken with a 21 F rigid cystoscope. Bladder neck and urethra endoscopically normal. Bladder mucosa is normal. The tip of her indwelling stent is grasped brought to external urethral meatus. 0.035 in glidewire was advanced through the stent into her right renal pelvis. I did quit rigid ureteroscopy the see if the stone was in her distal ureter without any success. I therefore placed a 09/22 ureteral access sheath after dilating with an 8 F 10 F dilator placing a safety wire. Ureteroscopy was undertaken with the 7.5 F flexible ureteral scope. The stone was chased into an upper pole calyx. Using a 273 micron holmium laser we dusted the stone into particles all less than 2 mm. I tried extracting stone fragments with a 1.9 F disposable stone basket but they were all too small. I replaced her stent with the proximal coil in renal pelvis and distal coil in the bladder ( 4.8 F variable length). She was taken recovery in good condition Drains Yes Packing No Pathology None sent Complications No immediate complications
[2023-09-25 10:21] LABS: Glucose Point of Care 197 mg/dl (65-105)
[2023-09-25] MEDS: oxyCODONE HCL (*CRX) 5 MG TAB IR PO (11:19)
== END 2023-09-25 11:41 | disposition home or self-care (01) ==
PROVIDERS: PCP Family Medicine; Visit Provider Urology
PROC: (CPT 52352; principal; 2023-09-25 09:30)
DX: N20.1 Calculus of ureter (principal); F41.9 Anxiety disorder, unspecified; F32.A Depression, unspecified; K21.9 Gastro-esophageal reflux disease without esophagitis; E78.5 Hyperlipidemia, unspecified; I10 Essential (primary) hypertension; E11.9 Type 2 diabetes mellitus without complications; G47.33 Obstructive sleep apnea (adult) (pediatric); F43.10 Post-traumatic stress disorder, unspecified; F17.290 Nicotine dependence, other tobacco product, uncomplicated; E66.01 Morbid (severe) obesity due to excess calories; Z68.43 Body mass index [BMI] 50.0-59.9, adult; Z79.4 Long term (current) use of insulin; Z79.85 Long-term (current) use of injectable non-insulin antidiabetic drugs; Z79.84 Long term (current) use of oral hypoglycemic drugs; Z79.51 Long term (current) use of inhaled steroids; Z79.891 Long term (current) use of opiate analgesic; Z86.73 Personal history of transient ischemic attack (TIA), and cerebral infarction without residual deficits; Z90.49 Acquired absence of other specified parts of digestive tract; Z82.49 Family history of ischemic heart disease and other diseases of the circulatory system; Z80.9 Family history of malignant neoplasm, unspecified
CPT/HCPCS: 52356; 82948; A9270; C1769; C1894; C2617; J0690; J1100; J2250; J2405; J2704; J3010; J7120

== ENCOUNTER 2023-10-08 11:06 | Outpatient (CLI) | payer OTHER, MEDICAID, SELFPAY ==
[2023-10-08 11:42] LABS: Basophils Absolute Auto 0.1 K/mm3 (0.0-0.1); Basophils Percent Auto 0.4 % (0.2-1.2); Eosinophils Absolute Auto 0.1 K/mm3 (0-0.3); Eosinophils Percent Auto 0.6 % (0-4.4); Hemoglobin 15.4 g/dL (12.0-15.0); Immature Granulocyte Percent A 0.6 % (0-0.5); Lymphocytes Absolute Auto 3.43 K/mm3 (0.9-3.2); Lymphocytes Percent Auto 19.4 % (18.3-44.2); Mean Corpuscular HGB Conc 30.8 g/dl (32-36); Mean Corpuscular Hemoglobin 28.8 pg (26-34); Mean Corpuscular Volume 93.5 fl (80-100); Mean Platelet Volume 10.9 fl (7.4-10.4); Monocytes Absolute Auto 1.6 K/mm3 (0.1-0.6); Monocytes Percent Auto 9.2 % (2.6-8.5); Neutrophils Absolute Auto 12.4 K/mm3 (1.3-6.7); Neutrophils Percent Auto 69.8 % (45.5-73.1); Platelet Count Result 371 k/mm3 (150-375); Red Blood Count 5.35 M/mm3 (4.2-5.4); Red Cell Distribution Width 13.8 % (11.5-14.5); White Blood Count 17.7 K/mm3 (4.5-10.0)
== END 2023-10-08 11:07 | disposition home or self-care (01) ==
LOC: ANHLAB 11:08
PROVIDERS: PCP Family Medicine; Visit Provider Physician Assistant
DX: D72.829 Elevated white blood cell count, unspecified (principal)
CPT/HCPCS: 36415; 85025

== ENCOUNTER 2023-10-27 12:21 | Outpatient (CLI) | payer OTHER, MEDICAID, SELFPAY ==
--- NOTE | ~2023-10-27 | XR_ITS ---
EXAMINATION: XR abdomen obstructive series DATE: 10/27/2023 12:46 INDICATION: Ileus, unspecified TECHNIQUE: Upright and supine views of the abdomen were obtained. COMPARISON: 09/11/2023 FINDINGS: There are no dilated loops of bowel. No free intraperitoneal gas is identified. The bowel g as pattern is normal. Cholecystectomy clips are noted. IMPRESSION: 1. Nonobstructive bowel gas pattern. Reviewed, dictated and finalized at location B. PREPARER
== END 2023-10-27 12:22 | disposition home or self-care (01) ==
PROVIDERS: PCP Family Medicine; Visit Provider Physician Assistant
DX: K56.7 Ileus, unspecified (principal)
CPT/HCPCS: 74019

== ENCOUNTER 2023-10-28 16:04 | Emergency (ER) | payer OTHER, MEDICAID, SELFPAY ==
--- NOTE | ~2023-10-28 | XR_ITS ---
EXAMINATION: XR abdomen obstructive series DATE: 10/28/2023 18:24 INDICATION: Abdominal pain. TECHNIQUE: Upright and supine views of the abdomen on 3 radiographs were obtained. COMPARISON: Abdomen radiographs 10/27/2023, CT abdomen and pelvis 09/17/2023 FINDINGS: There are no dilated loops of bowel. There is a small volume of stool in the colon. Surgica l clips in the right upper quadrant are likely from cholecystectomy. No free intraperitoneal gas. The re are phleboliths in the pelvis. IMPRESSION: 1. Normal bowel gas pattern. Reviewed, dictated and finalized at location E. 'S ASSISTANT
[2023-10-28 16:25] VITALS: BP 130/76; PULSE 100; RESP 20; TEMP 36.2; O2SAT 100
[2023-10-28 17:41] LABS: Appearance Urine Clear (Clear); Bilirubin Urine Negative (Negative); Blood Urine Negative (Negative); Color Urine Yellow (Yellow); Glucose Urine UA 3+ mg/dL (Negative); Ketones Urine Negative (Negative); Leukocyte Esterase Ur Negative LEU/UL (Negative); Nitrate Urine Negative (Negative); Protein Urine Negative (Negative); Specific Grav Ur 1.024 (1.001-1.035); Urobilinogen Urine 0.2 mg/dL (<2.0)
[2023-10-28 17:52] LABS: Add Urine Microscopic? YES
[2023-10-28 18:40] LABS: Lactic Acid Reflex 1.3 mmol/L (0.7-2.0)
[2023-10-28 18:42] LABS: Alanine Aminotransferase 20 U/L (6-35); Alkaline Phosphatase 56 U/L (38-126); Anion Gap 8 mmol/L (8-16); Aspartate Amino Transferase 23 U/L (14-36); Bilirubin,Total 0.6 mg/dL (0.2-1.3); Blood Urea Nitrogen 11 mg/dL (7-17); Calcium 8.9 mg/dL (8.4-10.2); Carbon Dioxide 21 mmol/L (22-30); Chloride 109 mmol/L (98-107); Estimated CRCL calculation 104 ml/min; Estimated Glomerular Filt Rate > 60; Glucose 187 mg/dL (65-110); Potassium 3.9 mmol/L (3.4-5.0); Sodium 138 mmol/L (137-145)
[2023-10-28 18:43] LABS: Basophils Absolute Auto 0.1 K/mm3 (0.0-0.1); Basophils Percent Auto 0.5 % (0.2-1.2); Eosinophils Absolute Auto 0.1 K/mm3 (0-0.3); Eosinophils Percent Auto 0.7 % (0-4.4); Hematocrit 45.1 % (37.0-47.0); Hemoglobin 13.8 g/dL (12.0-15.0); Immature Granulocyte Absolute 0.28 K/mm3 (0.00-0.031); Immature Granulocyte Percent A 1.7 % (0-0.5); Lymphocytes Absolute Auto 3.55 K/mm3 (0.9-3.2); Lymphocytes Percent Auto 21.7 % (18.3-44.2); Mean Corpuscular HGB Conc 30.6 g/dl (32-36); Mean Corpuscular Hemoglobin 28.8 pg (26-34); Mean Platelet Volume 10.4 fl (7.4-10.4); Monocytes Absolute Auto 1.4 K/mm3 (0.1-0.6); Monocytes Percent Auto 8.3 % (2.6-8.5); Neutrophils Percent Auto 67.1 % (45.5-73.1); Platelet Count Result 301 k/mm3 (150-375); Red Cell Distribution Width 14.5 % (11.5-14.5); White Blood Count 16.4 K/mm3 (4.5-10.0)
--- NOTE | 2023-10-28 18:56 | ED.ABDPAIN ---
HPI - Abdominal Pain General Chief Complaint: Abdominal Pain Stated Complaint: abdominal pain Time Seen by Provider: 10/28/23 17:40 History of Present Illness HPI narrative: patient presents the emergency department with persistent abdominal pain. She notes she has a history of frequent infections . However she cannot tell me exactly where the infections were at. She also states she has been told multiple times she has an ileus. 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 based on previous records there was possibly a abscess but it resolved on its own. Patient was discharged home without any complications. She was recently admitted to the hospital for a large obstructing uteral stone. Related Data Home Medications Medication Instructions Recorded Confirmed hydroxyzine pamoate 25 mg capsule 25 mg PO TID PRN Anxiety 09/21/19 10/27/23 aripiprazole 20 mg tablet 20 mg PO DAILY 07/18/20 10/27/23 desvenlafaxine succinate 100 mg 100 mg PO DAILY 07/18/20 10/27/23 tablet,extended release 24 hr lisinopril 5 mg tablet 5 mg PO DAILY 09/13/23 10/27/23 metoprolol succinate 50 mg 50 mg PO DAILY 09/13/23 10/27/23 tablet,extended release 24 hr spironolactone 100 mg tablet 200 mg PO DAILY 09/13/23 10/27/23 Allergies Allergy/AdvReac Type Severity Reaction Status Date / Time clindamycin Allergy Intermediate Hives Verified 10/28/23 16:05 Sulfa (Sulfonamide Allergy Intermediate Hives Verified 10/28/23 16:05 Antibiotics) Review of Systems Review of Systems: Negative except for what is documented in the HPI [facility] Past Medical History Medical History Acute bronchitis Allergies Anxiety Change in bowel habit Chest wall syndrome Depression Seeing psychiatry Diarrhea Dyspnea Eczema Elbow fracture, right Flatulence, eructation and gas pain GERD (gastroesophageal reflux disease) Headache, migraine Hyperlipidemia associated with type 2 diabetes mellitus Hypertension Hypoventilation associated with obesity Left ureteral stone Leg fracture, left Migraine Seeing neurology KAYLEE (obstructive sleep apnea) PCOS (polycystic ovarian syndrome) Pleuritic chest pain Pneumonia due to COVID-19 virus Post-operative complication PTSD (post-traumatic stress disorder) TIA (transient ischemic attack) Type 2 diabetes mellitus Ureter obstruction UTI (urinary tract infection) Vaginal bleeding Wrist fracture, bilateral Surgical History Surgical History H/O laparoscopy laparoscopic extensive lysis of adhesions/hysteroscopy/ polypectomy/dilatation curettage History of lithotripsy History of removal of cyst Hx of cholecystectomy Family History Family History Father Diabetes mellitus Hypertension Family history of elevated blood lipids Grandparent Diabetes mellitus Family history of coronary artery disease Mother Hypertension Other Cancer Cerebrovascular accident Depression Social History Social History Social History: Angela is very confident filling out medical forms. In the last 12 months she has not received assistance from an organization or program. She started vaping 2 weeks ago and prior to that she smoked cigarettes for 1 year. She is single and has No children . 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 She drinks alcohol socially. She lives with her niece and her family. Code status full code Smoking packs per day: 0.15 Smoking cigarettes per day: 3.0 Years smoked: 1 Smoking pack-years: 0.15 Smoking status: Former smoker Tobacco type: e-cigarettes/vaping Second hand tobacco smoke exposure: No Additional smoking assessment comments: STOPPED CIGARETTES MID 2021, NOW VAPI
[2023-10-28] MEDS: DICYCLOMINE HCL 10 MG CAPSULE PO (19:21)
[2023-10-28] MEDS: ONDANSETRON HCL ODT 4 MG TABLET PO (19:21)
[2023-10-28 19:25] VITALS: BP 134/74; PULSE 88; RESP 16; O2SAT 98
== END 2023-10-28 19:26 | disposition home or self-care (01) ==
PROVIDERS: Student in an Organized Health Care Education/Training Program; Emergency Provider Emergency Medicine; PCP Family Medicine
DX: R10.84 Generalized abdominal pain (principal); R11.0 Nausea; F41.9 Anxiety disorder, unspecified; F32.A Depression, unspecified; K21.9 Gastro-esophageal reflux disease without esophagitis; I10 Essential (primary) hypertension; G47.30 Sleep apnea, unspecified
CPT/HCPCS: 36415; 74019; 80053; 81001; 81025; 83605; 85025; 99283; A9270

== ENCOUNTER 2023-11-21 08:54 | Outpatient (CLI) | payer OTHER, MEDICAID, SELFPAY ==
[2023-11-21 09:31] LABS: Anion Gap 10 mmol/L (8-16); Blood Urea Nitrogen 10 mg/dL (7-17); Calcium 8.5 mg/dL (8.4-10.2); Carbon Dioxide 23 mmol/L (22-30); Chloride 106 mmol/L (98-107); Estimated Glomerular Filt Rate > 60; Glucose 131 mg/dL (65-110); Potassium 3.5 mmol/L (3.4-5.0); Sodium 139 mmol/L (137-145)
[2023-11-21 09:43] LABS: Parathyroid Intact 43.7 pg/mL (7.5-53.5)
== END 2023-11-21 08:55 | disposition home or self-care (01) ==
LOC: ANHLAB 08:56
PROVIDERS: PCP Family Medicine; Visit Provider Urology
DX: N20.1 Calculus of ureter (principal)
CPT/HCPCS: 36415; 80048; 83970

== ENCOUNTER 2023-12-31 11:57 | Emergency (ER) | payer OTHER, MEDICAID, SELFPAY ==
--- NOTE | 2023-12-31 11:59 | ED.URI ---
HPI - URI/Sore Throat General Chief Complaint: Upper Respiratory Infection Stated Complaint: Congestion/Ear Pain Source: patient and RN notes reviewed Mode of arrival: ambulatory Limitations: no limitations History of Present Illness HPI Narrative: Patient is a 38-year-old female who presents to the [facility] with complaints congestion, headache, and ear pain starting yesterday morning. Patient denies cough, chest pain, shortness of breath. Denies abdominal pain, nausea, vomiting. Denies known fevers. Patient is unsure of any known sick contacts. She reports bilateral ear pain worse on the right than the left. Denies ear drainage. Denies hearing deficit. Related Data Home Medications Medication Instructions Recorded Confirmed hydroxyzine pamoate 25 mg capsule 25 mg PO TID PRN Anxiety 09/21/19 10/31/23 aripiprazole 20 mg tablet 20 mg PO DAILY 07/18/20 10/31/23 desvenlafaxine succinate 100 mg 100 mg PO DAILY 07/18/20 10/31/23 tablet,extended release 24 hr metoprolol succinate 50 mg 50 mg PO DAILY 09/13/23 10/31/23 tablet,extended release 24 hr Allergies Allergy/AdvReac Type Severity Reaction Status Date / Time clindamycin Allergy Intermediate Hives Verified 12/31/23 12:00 Sulfa (Sulfonamide Allergy Intermediate Hives Verified 12/31/23 12:00 Antibiotics) Review of Systems Review of Systems: CONSTITUTIONAL: Denies fever, chills, or sweats. EYES: Denies visual changes, redness, or discharge. ENT: Reports otalgia but denies sore throat. Reports nasal congestion. CARDIOVASCULAR: Denies chest pain, palpitations, or edema. RESPIRATORY: Denies cough or dyspnea. GASTROINTESTINAL: Denies abdominal pain, nausea, vomiting, or diarrhea. GENITOURINARY: Denies dysuria or hematuria. SKIN: Denies rash or itching. MUSCULOSKELETAL: Denies back pain, joint pain, or myalgia. NEUROLOGIC: Reports headache but denies numbness or weakness. Pertinent positives per HPI. [facility] Past Medical History Medical History Acute bronchitis Allergies Anxiety Change in bowel habit Chest wall syndrome Depression Seeing psychiatry Diarrhea Dyspnea Eczema Elbow fracture, right Flatulence, eructation and gas pain GERD (gastroesophageal reflux disease) Headache, migraine Hyperlipidemia associated with type 2 diabetes mellitus Hypertension Hypoventilation associated with obesity Left ureteral stone Leg fracture, left Migraine Seeing neurology KAYLEE (obstructive sleep apnea) PCOS (polycystic ovarian syndrome) Pleuritic chest pain Pneumonia due to COVID-19 virus Post-operative complication PTSD (post-traumatic stress disorder) TIA (transient ischemic attack) Type 2 diabetes mellitus Ureter obstruction UTI (urinary tract infection) Vaginal bleeding Wrist fracture, bilateral Surgical History Surgical History H/O laparoscopy laparoscopic extensive lysis of adhesions/hysteroscopy/ polypectomy/dilatation curettage History of lithotripsy History of removal of cyst Hx of cholecystectomy Family History Family History Father Diabetes mellitus Hypertension Family history of elevated blood lipids Grandparent Diabetes mellitus Family history of coronary artery disease Mother Hypertension Other Cancer Cerebrovascular accident Depression Social History Social History Social History: Angela is very confident filling out medical forms. In the last 12 months she has not received assistance from an organization or program. She started vaping 2 weeks ago and prior to that she smoked cigarettes for 1 year. She is single and has No children . 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 She drinks alcohol socially. She lives with her niece and her family. Code status full code
[2023-12-31 12:02] VITALS: BP 135/79; PULSE 119; RESP 16; TEMP 36.8; O2SAT 99
== END 2023-12-31 12:34 | disposition home or self-care (01) ==
PROVIDERS: Emergency Provider Nurse Practitioner; PCP Family Medicine
DX: H66.91 Otitis media, unspecified, right ear (principal); Z20.822 Contact with and (suspected) exposure to COVID-19; F17.290 Nicotine dependence, other tobacco product, uncomplicated; K21.9 Gastro-esophageal reflux disease without esophagitis; E78.5 Hyperlipidemia, unspecified; I10 Essential (primary) hypertension; E28.2 Polycystic ovarian syndrome; E11.9 Type 2 diabetes mellitus without complications; Z86.73 Personal history of transient ischemic attack (TIA), and cerebral infarction without residual deficits
CPT/HCPCS: 87426; 87804; 99213; G0463

== ENCOUNTER 2024-02-12 09:08 | Emergency (ER) | payer OTHER, MEDICAID, SELFPAY ==
[2024-02-12] VITALS (7 sets, daily range): BP systolic 124–169; BP diastolic 66–93; PULSE 103–111; RESP 13–20; TEMP 37; O2SAT 98–100
--- NOTE | ~2024-02-12 | CT_ITS ---
Non-contrast Head CT History: Blurry vision Technique: Axial non-contrast imaging of the brain was performed. Dose reduction technique was used on this scan by utilizing automated exposure control and iterative reconstruction technique. The dose -length product (DLP) was 605.33 mGy-cm. Findings: There is no evidence of intracranial hemorrhage, mass lesion, or acute infarct. Brain par enchyma appears normal. The ventricles and subarachnoid spaces are normal in size. The calvarium ap pears normal. The visualized paranasal sinuses and mastoid air cells are clear. Impression: No significant abnormality seen. Reviewed, dictated and finalized at location . Impression: No significant abnormality seen.
--- NOTE | ~2024-02-12 | XR_ITS ---
Clinical Indication: Chest pain PA and lateral views of the chest: Comparison: 07/31/2023 Findings: The lungs are clear, without evidence of focal consolidation or pleural effusion. Cardiome diastinal silhouette is within normal limits. Bones and soft tissues are unremarkable. Impression: Normal chest. Reviewed, dictated and finalized at location . Impression: Normal chest.
--- NOTE | 2024-02-12 09:14 | ECG_ITS ---
Measurements Intervals [place] Rate: 101 P: 26 MT: 110 QRS: 55 QRSD: 94 T: 55 QT: 352 QTc: 458 Interpretive Statements SINUS TACHYCARDIA WITH SHORT MT INTERVAL NONSPECIFIC T-WAVE ABNORMALITY ABNORMAL RHYTHM ECG COMPARED TO ECG 12/24/2022 14:52:17 NO SIGNIFICANT CHANGES Electronically Signed On 02-12-2024 11:05:11 CDT by Kam Chan M.D.
[2024-02-12 09:22] LABS: Glucose Point of Care 204 mg/dl (65-105)
--- NOTE | 2024-02-12 09:22 | PC.NURSE ---
BS 206
[2024-02-12] MEDS: ASPIRIN 81 MG CHEWABLE TABLET 324 MG PO (09:25)
[2024-02-12 09:33] LABS: Basophils Absolute Auto 0.1 K/mm3 (0.0-0.1); Basophils Percent Auto 0.3 % (0.2-1.2); Eosinophils Absolute Auto 0.1 K/mm3 (0-0.3); Eosinophils Percent Auto 0.5 % (0-4.4); Hematocrit 50.1 % (37.0-47.0); Hemoglobin 15.6 g/dL (12.0-15.0); Immature Granulocyte Absolute 0.11 K/mm3 (0.00-0.031); Immature Granulocyte Percent A 0.7 % (0-0.5); Lymphocytes Absolute Auto 2.78 K/mm3 (0.9-3.2); Lymphocytes Percent Auto 18.8 % (18.3-44.2); Mean Corpuscular HGB Conc 31.1 g/dl (32-36); Mean Corpuscular Hemoglobin 27.9 pg (26-34); Mean Corpuscular Volume 89.6 fl (80-100); Mean Platelet Volume 10.9 fl (7.4-10.4); Monocytes Percent Auto 6.6 % (2.6-8.5); Neutrophils Absolute Auto 10.8 K/mm3 (1.3-6.7); Neutrophils Percent Auto 73.1 % (45.5-73.1); Platelet Count Result 313 k/mm3 (150-375); Red Blood Count 5.59 M/mm3 (4.2-5.4); Red Cell Distribution Width 13.8 % (11.5-14.5); White Blood Count 14.8 K/mm3 (4.5-10.0)
[2024-02-12 09:43] LABS: Prothrombin Time 13.1 Seconds (11.1-14.7)
--- NOTE | 2024-02-12 09:47 | ED.CHESTPAIN ---
HPI - Chest Pain General Chief Complaint: Chest Pain Stated Complaint: chest discomfort Time Seen by Provider: 02/12/24 09:22 Source: patient Mode of arrival: ambulatory Limitations: no limitations History of Present Illness HPI narrative: Patient is a 38-year-old female, with past medical history of diabetes, hypertension, hyperlipidemia, who presents the ED with multiple complaints. Reports she began feeling ill overnight with intermittent chest tightness, intermittent pain and paresthesias into left arm. She states symptoms became worse and more prominent around 7:00 p.m., which prompted her presentation. She denies ever having symptoms like this before. She also reports having intermittent lina blurry vision, mild SOB with walking into the ED. Otherwise denies dyspnea at rest. Denies eye itching, eye drainage, vision loss. Denies lower extremity pain or swelling. Denies palpitation, fevers, cough cold symptoms, abd pain, N/V, focal weakness/numbness. Related Data Home Medications Medication Instructions Recorded Confirmed hydroxyzine pamoate 25 mg capsule 25 mg PO TID PRN Anxiety 09/21/19 02/11/24 aripiprazole 20 mg tablet 20 mg PO DAILY 07/18/20 02/11/24 desvenlafaxine succinate 100 mg 100 mg PO DAILY 07/18/20 02/11/24 tablet,extended release 24 hr metoprolol succinate 50 mg 50 mg PO DAILY 09/13/23 02/11/24 tablet,extended release 24 hr Allergies Allergy/AdvReac Type Severity Reaction Status Date / Time clindamycin Allergy Intermediate Hives Verified 02/11/24 14:02 Sulfa (Sulfonamide Allergy Intermediate Hives Verified 02/11/24 14:02 Antibiotics) Review of Systems Review of Systems: CONSTITUTIONAL: Denies fever, chills, or sweats. EENT: See HPI CARDIOVASCULAR: See HPI. RESPIRATORY: Denies cough or dyspnea. GASTROINTESTINAL: Denies abdominal pain, nausea, vomiting. NEUROLOGIC: See HPI All systems reviewed & are unremarkable except as noted in HPI and below PMFSH Past Medical History Medical History Acute bronchitis Allergies Anxiety Change in bowel habit Chest wall syndrome Depression Seeing psychiatry Diarrhea Dyspnea Eczema Elbow fracture, right Flatulence, eructation and gas pain GERD (gastroesophageal reflux disease) Headache, migraine Hyperlipidemia associated with type 2 diabetes mellitus Hypertension Hypoventilation associated with obesity Left ureteral stone Leg fracture, left Migraine Seeing neurology KAYLEE (obstructive sleep apnea) PCOS (polycystic ovarian syndrome) Pleuritic chest pain Pneumonia due to COVID-19 virus Post-operative complication PTSD (post-traumatic stress disorder) TIA (transient ischemic attack) Type 2 diabetes mellitus Ureter obstruction UTI (urinary tract infection) Vaginal bleeding Wrist fracture, bilateral Surgical History Surgical History H/O laparoscopy laparoscopic extensive lysis of adhesions/hysteroscopy/ polypectomy/dilatation curettage History of lithotripsy History of removal of cyst Hx of cholecystectomy Family History Family History Father Diabetes mellitus Hypertension Family history of elevated blood lipids Grandparent Diabetes mellitus Family history of coronary artery disease Mother Hypertension Other Cancer Cerebrovascular accident Depression Social History Social History Social History: Angela is very confident filling out medical forms. In the last 12 months she has not received assistance from an organization or program. She started vaping 2 weeks ago and prior to that she smoked cigarettes for 1 year. She is single and has No children . 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 She drinks alcohol socially. She lives with her niece and her family. Co
[2024-02-12 09:57] LABS: Alanine Aminotransferase 27 U/L (6-35); Albumin Level 4.1 g/dL (3.5-5.1); Alkaline Phosphatase 61 U/L (38-126); Anion Gap 9 mmol/L (4-12); Aspartate Amino Transferase 33 U/L (14-36); Bilirubin,Total 0.9 mg/dL (0.2-1.3); Blood Urea Nitrogen 11 mg/dL (7-17); Calcium 8.7 mg/dL (8.4-10.2); Carbon Dioxide 21 mmol/L (22-30); Chloride 108 mmol/L (98-107); Estimated Glomerular Filt Rate > 60; Glucose 176 mg/dL (65-110); Lipase 87 U/L (23-300); Potassium 4.1 mmol/L (3.4-5.0); Sodium 138 mmol/L (137-145)
[2024-02-12 10:08] LABS: Troponin I < 0.012 ng/mL (0.000-0.034)
[2024-02-12 11:04] LABS: NT Pro B Type Natriuretic Pept 64 pg/mL (19.9-100)
[2024-02-12 11:18] LABS: D Dimer 0.35 ug/mL (<0.48)
[2024-02-12 12:34] LABS: Troponin I < 0.012 ng/mL (0.000-0.034)
[2024-02-12] MEDS: ACETAMINOPHEN 500 MG TABLET 1000 MG PO (13:08)
== END 2024-02-12 13:21 | disposition home or self-care (01) ==
PROVIDERS: Emergency Medicine; Emergency Provider Physician Assistant; PCP Family Medicine
DX: R07.89 Other chest pain (principal); H57.89 Other specified disorders of eye and adnexa; I10 Essential (primary) hypertension; E11.69 Type 2 diabetes mellitus with other specified complication; E78.5 Hyperlipidemia, unspecified; E66.2 Morbid (severe) obesity with alveolar hypoventilation; G47.33 Obstructive sleep apnea (adult) (pediatric); E28.2 Polycystic ovarian syndrome; K21.9 Gastro-esophageal reflux disease without esophagitis; F17.290 Nicotine dependence, other tobacco product, uncomplicated; Z87.01 Personal history of pneumonia (recurrent); Z86.16 Personal history of COVID-19; Z86.73 Personal history of transient ischemic attack (TIA), and cerebral infarction without residual deficits; Z87.440 Personal history of urinary (tract) infections; Z90.49 Acquired absence of other specified parts of digestive tract; Z79.85 Long-term (current) use of injectable non-insulin antidiabetic drugs; Z79.4 Long term (current) use of insulin; Z79.84 Long term (current) use of oral hypoglycemic drugs
CPT/HCPCS: 36415; 70450; 71046; 80053; 82948; 83690; 83880; 84484; 85025; 85380; 85610; 85730; 93005; 99284; A9270

== ENCOUNTER 2024-02-28 07:11 | Outpatient (CLI) | payer OTHER, MEDICAID, SELFPAY ==
--- NOTE | ~2024-02-28 | XR_ITS ---
XR lumbar spine min 4V 02/28/2024 07:37 Indication: Low back pain Procedure: 5 views lumbar spine Comparison: No prior studies for comparison. Findings: Mild levoscoliosis. No acute fracture, subluxation or dislocation. Mild levocurvature of th e lumbar spine. No evidence for spondylolisthesis. Mild facet hypertrophy at L5-S1. No significant di sc narrowing. Sacral foramen are symmetric. There are cholecystectomy clips. Impression: 1: Mild lumbar spondylosis. Reviewed, dictated and finalized at location A. Impression: 1: Mild lumbar spondylosis.
[2024-02-28 08:30] LABS: Cholesterol 153 mg/dL (0-200); HDL Direct 36 mg/dL; Triglycerides 214 mg/dL (<150)
[2024-02-28 08:41] LABS: LDL Cholesterol Direct 94 mg/dL
== END 2024-02-28 07:12 | disposition home or self-care (01) ==
PROVIDERS: PCP Family Medicine; Visit Provider Physician Assistant Medical
DX: M43.06 Spondylolysis, lumbar region (principal); F41.9 Anxiety disorder, unspecified; E78.2 Mixed hyperlipidemia; R79.89 Other specified abnormal findings of blood chemistry
CPT/HCPCS: 36415; 72110; 80061; 82306; 84443

== ENCOUNTER 2024-04-16 10:05 | Emergency (ER) | payer OTHER, MEDICAID, SELFPAY ==
[2024-04-16 10:14] VITALS: BP 124/73; PULSE 110; RESP 20; TEMP 36.6; O2SAT 100
--- NOTE | 2024-04-16 10:49 | ED.SKABFB ---
HPI - Skin/Abscess/Foreign Bdy General Chief complaint: Skin/Abscess/Foreign Body Stated complaint: Spot on stomach Time Seen by Provider: 04/16/24 10:30 Source: patient, RN notes reviewed and old records reviewed Mode of arrival: ambulatory Limitations: no limitations History of Present Illness HPI narrative: 38 year old female who [facility] with complaints of red tender warm tissue area to her left lower abdomen area where previous site of insulin pump. Patient reports that on the her machine kept reading occlusion so she changed the site. Patient reports that she had small area of redness on her abdomen. Patient states that area has enlarged and now is warm and painful. Patient reports that she has been applying an ice pack to area at intervals, she denies any known fevers chills or sweats. MD complaint: abscess/boil (cellulitis) Onset (ago): day(s) (2 with increased size and now warmth and pain) Severity scale (1-10): 7 Quality: aching and other (warm and tender) Exacerbating factors: palpation Treatments prior to arrival: other (ice pack to area) Related Data Home Medications Medication Instructions Recorded Confirmed hydroxyzine pamoate 25 mg capsule 25 mg PO TID PRN Anxiety 09/21/19 04/16/24 aripiprazole 20 mg tablet 20 mg PO DAILY 07/18/20 04/16/24 desvenlafaxine succinate 100 mg 100 mg PO DAILY 07/18/20 04/16/24 tablet,extended release 24 hr metoprolol succinate 50 mg 50 mg PO DAILY 09/13/23 04/16/24 tablet,extended release 24 hr Allergies Allergy/AdvReac Type Severity Reaction Status Date / Time clindamycin Allergy Intermediate Hives Verified 04/08/24 10:28 Sulfa (Sulfonamide Allergy Intermediate Hives Verified 04/08/24 10:28 Antibiotics) Review of Systems Review of Systems: CONSTITUTIONAL: Denies fever, chills, or sweats. CARDIOVASCULAR: Denies chest pain, palpitations, or edema. RESPIRATORY: Denies cough or dyspnea. GASTROINTESTINAL: Denies abdominal pain, nausea, vomiting SKIN: Reports redness and swelling tenderness and warmth to left lower abdomen area . Denies purulent drainage, vesicles, bullae, numbness, MUSCULOSKELETAL: Denies myalgia. NEUROLOGIC: Denies headache, numbness All systems reviewed & are unremarkable except as noted in HPI and below PMFSH Past Medical History Medical History Acute bronchitis Allergies Anxiety Bilateral lower abdominal pain Change in bowel habit Chest wall syndrome Depression Seeing psychiatry Dyspnea Eczema Elbow fracture, right GERD (gastroesophageal reflux disease) Headache, migraine Hyperlipidemia associated with type 2 diabetes mellitus Hypertension Hypoventilation associated with obesity Insulin pump fitting or adjustment Left ureteral stone Leg fracture, left Migraine Seeing neurology Nausea & vomiting KAYLEE (obstructive sleep apnea) PCOS (polycystic ovarian syndrome) Pleuritic chest pain Pneumonia due to COVID-19 virus Post-operative complication PTSD (post-traumatic stress disorder) TIA (transient ischemic attack) Type 2 diabetes mellitus Ureter obstruction Ureterolithiasis Vaginal bleeding Wrist fracture, bilateral Surgical History Surgical History H/O laparoscopy laparoscopic extensive lysis of adhesions/hysteroscopy/ polypectomy/dilatation curettage History of lithotripsy History of removal of cyst Hx of cholecystectomy S/P laparoscopic procedure Family History Family History Father Diabetes mellitus Hypertension Family history of elevated blood lipids Grandparent Diabetes mellitus Family history of coronary artery disease Mother Hypertension Other Cancer Cerebrovascular accident Depression Social History Social History Social History: Angela is very confident filling
== END 2024-04-16 11:14 | disposition home or self-care (01) ==
PROVIDERS: Emergency Provider Registered Nurse; PCP Family Medicine
DX: L03.311 Cellulitis of abdominal wall (principal); F17.290 Nicotine dependence, other tobacco product, uncomplicated; K21.9 Gastro-esophageal reflux disease without esophagitis; E78.5 Hyperlipidemia, unspecified; E28.2 Polycystic ovarian syndrome; Z86.73 Personal history of transient ischemic attack (TIA), and cerebral infarction without residual deficits; E11.9 Type 2 diabetes mellitus without complications; Z96.41 Presence of insulin pump (external) (internal); F41.9 Anxiety disorder, unspecified; F32.A Depression, unspecified
CPT/HCPCS: 99213; G0463

== ENCOUNTER 2024-04-23 09:07 | Outpatient (CLI) | payer OTHER, MEDICAID, SELFPAY ==
[2024-04-23 09:57] LABS: Basophils Absolute Auto 0.1 K/mm3 (0.0-0.1); Basophils Percent Auto 0.3 % (0.2-1.2); Eosinophils Absolute Auto 0.2 K/mm3 (0-0.3); Eosinophils Percent Auto 1.1 % (0-4.4); Hematocrit 45.6 % (37.0-47.0); Hemoglobin 14.4 g/dL (12.0-15.0); Immature Granulocyte Absolute 0.12 K/mm3 (0.00-0.031); Immature Granulocyte Percent A 0.8 % (0-0.5); Lymphocytes Absolute Auto 2.98 K/mm3 (0.9-3.2); Lymphocytes Percent Auto 20.4 % (18.3-44.2); Mean Corpuscular HGB Conc 31.6 g/dl (32-36); Mean Corpuscular Hemoglobin 28.1 pg (26-34); Mean Corpuscular Volume 88.9 fl (80-100); Mean Platelet Volume 10.3 fl (7.4-10.4); Monocytes Percent Auto 7.1 % (2.6-8.5); Neutrophils Absolute Auto 10.3 K/mm3 (1.3-6.7); Neutrophils Percent Auto 70.3 % (45.5-73.1); Platelet Count Result 268 k/mm3 (150-375); Red Blood Count 5.13 M/mm3 (4.2-5.4); Red Cell Distribution Width 14.5 % (11.5-14.5); White Blood Count 14.6 K/mm3 (4.5-10.0)
== END 2024-04-23 09:08 | disposition home or self-care (01) ==
LOC: ANHLAB 09:09
PROVIDERS: PCP Family Medicine; Visit Provider Physician Assistant Medical
DX: L03.90 Cellulitis, unspecified (principal)
CPT/HCPCS: 36415; 85025

== ENCOUNTER 2024-05-05 08:16 | Outpatient (CLI) | payer OTHER, MEDICAID, SELFPAY ==
[2024-05-05 09:02] LABS: Anion Gap 4 mmol/L (4-12); Blood Urea Nitrogen 10 mg/dL (7-17); Calcium 8.5 mg/dL (8.4-10.2); Carbon Dioxide 29 mmol/L (22-30); Chloride 108 mmol/L (98-107); Estimated Glomerular Filt Rate > 60; Glucose 128 mg/dL (65-110); Potassium 3.6 mmol/L (3.4-5.0); Sodium 141 mmol/L (137-145)
== END 2024-05-05 08:17 | disposition home or self-care (01) ==
LOC: ANHLAB 08:18
PROVIDERS: PCP Family Medicine; Visit Provider Anesthesiology
DX: E11.9 Type 2 diabetes mellitus without complications (principal); Z01.818 Encounter for other preprocedural examination
CPT/HCPCS: 36415; 80048

== ENCOUNTER 2024-05-07 00:45 | Day surgery (SDC) | payer OTHER, MEDICAID, SELFPAY ==
[2024-05-04 13:44] VITALS: BMI 55.7
--- NOTE | 2024-05-04 13:51 | PC.NURSE ---
Report to the Outpatient Waiting Room, entrance under the green pavilion located off [facility], at time _0830_ on date _[id number]_. Planned Procedure Time: _1030_. Time changes happen often and if your time is changed the preop area will call you the afternoon before. - You and your visitor will be asked to self-screen and do not enter if you have any COVID symptoms. - A mask is optional within the hospital at this time. Patients may have clear liquids (water, carbonated beverages, clear teas, apple juice) until 3 hours prior to surgery with a maximum of 20 ounces. - No food from midnight until time of surgery Take the following medications with a SIP of water the morning of surgery: ___Amlodipine, Metoprolol, Cephalexin and if needed pain medication DO NOT STOP ANY OF YOUR OTHER PRESCRIPTION MEDICATIONS PRIOR TO SURGERY ?EXCEPT THE FOLLOWING Medications to discontinue per physician __None Continue Insulin pump Date to take last dose Please no make-up, nail bulgarian, hairspray, perfume, deodorant, or body powder the day of surgery. No jewelry (including any body piercings) or valuables the day of surgery, leave them at home. Please take a shower or bath the night before, or the morning of, surgery with an antibacterial soap. Wear comfortable, loose fitting clothing. - Jewelry must be removed prior to entering the operating room. Rings and piercings that are not removed may be cut off. - The hospital will not accept responsibility for valuables. - Please leave all valuables, including medications, at home the day of surgery. If you are going home after surgery, a licensed driver supervisor must drive you home. - NO public transportation without another adult if you receive anesthesia. - We recommend that an adult stay with you for 24 hours following discharge. - We also recommend that you do not drive, make important decision, drink alcoholic beverages, or take any drugs that were not prescribed by your health care provider for at least 24 hours after your discharge time. Follow any additional instructions given to you from your surgeon. If you or anyone in your household have experienced Covid symptoms in the past week, please notify your surgeon or the nurse liaison at the phone number below for possible testing. Telephone instructions given to __Angela___and asked if any additional questions and then verbalized understanding. Patient advised to call surgeon office or pre surgery nurse liaison [phone] if any additional questions.
[2024-05-07] VITALS (9 sets, daily range): BP systolic 110–141; BP diastolic 63–89; PULSE 100–108; RESP 14–16; TEMP 36.8–36.9; O2SAT 92–97
[2024-05-07 12:05] LABS: Glucose Point of Care 132 mg/dl (65-105)
[2024-05-07 12:32] LABS: Glucose Point of Care 112 mg/dl (65-105)
[2024-05-07] MEDS: LACTATED RINGERS 1,000 ML 30 ML IV CONT (12:40)
--- NOTE | 2024-05-07 13:13 | WPDHPUPDATE1 ---
History and Physical Update Update Date/Time: 05/07/24 13:13 History and Physical has been reviewed, including an updated exam of the patient. There are NO changes in the patient's condition. Risks, benefits, and alternatives have been discussed and questions answered. Patient agrees to proceed with procedure.
--- NOTE | 2024-05-07 13:30 | WPDANESEPPF ---
Anes - Initial Pre Proc Eval Procedure: Operation Date: 05/07/24 13:30 Proposed Procedures p Debridement of Lower Abdominal Wall Necrotic Wound - Abram Tolliver MD Date/Time: 05/07/24 13:30 Surgeon: Abram Tolliver MD Pre Op Diagnosis: chr necrotic lower abdominal wall wound wth Infect Patient Data Age: 38 Gender: F Height: 1.7 m Weight: 159.5 kg Last Vital Signs Temp 36.9 C 05/07/24 12:11 Pulse 102 H 05/07/24 12:11 Resp 14 05/07/24 12:11 BP 110/71 05/07/24 12:11 Pulse Ox 93 05/07/24 12:11 O2 Del Method Room Air 05/07/24 12:11 Allergies Allergy/AdvReac Type Severity Reaction Status Date / Time clindamycin Allergy Intermediate Hives Verified 05/07/24 12:10 Sulfa (Sulfonamide Allergy Intermediate Hives Verified 05/07/24 12:10 Antibiotics) Home Medications Medication Instructions Recorded Confirmed Type hydroxyzine pamoate 25 mg capsule 25 mg PO TID PRN Anxiety 09/21/19 05/07/24 History aripiprazole 20 mg tablet 20 mg PO DAILY 07/18/20 05/07/24 History desvenlafaxine succinate 100 mg 100 mg PO DAILY 07/18/20 05/07/24 History tablet,extended release 24 hr lancets 33 gauge (OneTouch Delica #600 ea 02/05/23 05/05/24 Rx Plus Lancet) pen needle, diabetic 32 gauge x #100 ea 05/26/23 05/05/24 Rx /32 (Pen Needle) metformin 1,000 mg tablet 1,000 mg PO BID #180 tabs 06/22/23 05/07/24 Rx atorvastatin 10 mg tablet 10 mg PO DAILY #90 tabs 07/22/23 05/07/24 Rx blood-glucose meter,continuous #1 ea 09/09/23 05/05/24 Rx (Dexcom G6 Mixer Pigment) metoprolol succinate 50 mg 50 mg PO DAILY 09/13/23 05/07/24 History tablet,extended release 24 hr insulin aspart U-100 100 unit/mL 120 unit (1.2 mL) continuous 11/18/23 05/07/24 Rx subcutaneous solution (Novolog subcutaneous infusion DAILY #110 mL U-100 Insulin aspart) omeprazole 20 mg capsule,delayed 20 mg PO DAILY #90 caps 12/16/23 05/07/24 Rx release blood-glucose sensor (Dexcom G7 #9 ea 01/06/24 05/05/24 Rx Sensor device) amlodipine 2.5 mg tablet 2.5 mg PO DAILY #90 tabs 01/18/24 05/07/24 Rx blood sugar diagnostic (OneTouch #100 strips 02/13/24 05/05/24 Rx Verio test strips) cyclobenzaprine 10 mg tablet 10 mg PO TID PRN muscle spasm #60 03/21/24 05/07/24 Rx tabs empagliflozin 25 mg tablet See Rx Instructions .Route 03/25/24 05/07/24 Rx (Jardiance) .COMPLEX #30 tabs ubrogepant 100 mg tablet (Ubrelvy) 100 mg PO ONCE PRN migraine 04/12/24 05/05/24 Rx headache #16 tabs ibuprofen 800 mg tablet 800 mg PO Q8H PRN pain #60 tabs 04/18/24 05/07/24 Rx tirzepatide 12.5 mg/0.5 mL 12.5 mg (0.5 mL) subcut WEEKLY #2 04/21/24 05/07/24 Rx subcutaneous pen injector mL (Mounjennifferro) dicyclomine 10 mg capsule 10 mg PO TID #120 caps 04/27/24 05/07/24 Rx mupirocin 2 % topical ointment 1 applic topical BID #22 grams 04/27/24 05/07/24 Rx cephalexin 500 mg capsule 500 mg PO Q6H 10 days #40 caps 04/29/24 05/07/24 Rx hydrocodone 5 mg-acetaminophen 325 1 tablet PO Q6H PRN pain #20 tabs 05/04/24 05/07/24 Rx mg tablet ondansetron 4 mg disintegrating 4 mg PO Q6H PRN nausea and 05/04/24 05/07/24 Rx tablet vomiting #15 tabs Laboratory Tests 05/07/24 05/07/24 12:03 12:29 POC Capillary Glucose 132 H mg/dl 112 H mg/dl (65-105) (65-105) Patient hx anesthesia problems: none Family hx anesthesia problems: none Results Review: All pre-operative results and documents have been reviewed as part of the pre-operative evaluation. [facility] Past Medical History Medical History Acute bronchitis Allergies Anxiety Bilateral lower abdominal pain Change in bowel habit Chest wall syndrome Depression Seeing psychiatry Dyspnea Eczema Elbow fracture, right GERD (gastroesophageal reflux disease) Headache, migraine Hyperlipidemia associated with type 2 diabetes mellitus Hypertension Hypoventilation associated with obesity Insulin pump fitting or adjustment Left urete
[2024-05-07] MEDS: DEXTROSE 50% 25 GM/50 ML SYRINGE IV PUSH (13:35)
[2024-05-07] MEDS: ceFAZolin 3 GM/D5W 100 ML 100 ML IVPB (13:38)
[2024-05-07] MEDS: fentaNYL CITRATE INJ (*CRX) 100 MCG/2 ML VIAL 25 MCG IV PUSH ×2 (14:25→15:00)
[2024-05-07] MEDS: BUPivacaine HCL 0.5% 10 ML AMP 20 ML INFILTRATE (14:26)
[2024-05-07] MEDS: LIDO 1%/EPINEPHRINE 1:100,000 50 ML VIAL 20 ML INFILTRATE (14:27)
--- NOTE | 2024-05-07 14:30 | P.OP_ITS ---
Procedure Note - Detailed Date of Procedure 05/07/24 Pre-op Diagnosis chr necrotic lower abdominal wall wound wth Infect Post-op Diagnosis Same Procedure Performed Excisional sharp debridement with scalpel of necrotic skin and subcutaneous tissue lower abdominal wall wound. Surgeon bAram Tolliver MD Anesthesia MAC Indications Patient is a 38-year-old morbidly obese female who is on insulin has a continuous insulin pump with a monitoring device on her abdominal wall. She had developed infection and necrosis of an area where she had the monitoring device located. She has developed cellulitis in necrotic tissue to include skin and subcutaneous tissue in the area. She presents now for surgical sharp debrid ement of the wound in an excisional fashion. Findings The wound after excision measured 3x3x0.3cm. Necrotic skin and subcutaneous tissue was noted. There was some granulation tissue at the base. No tunneling was noted. Description of Procedure After informed consent was obtained patient brought to the operating room she was placed supine position and then general LMA anesthesia was administered. The abdomen was then prepped and draped usual sterile fashion. A time-out was then performed correctly identify patient as well as procedure to be performed. She was given some perioperative IV antibiotics. I 1st anesthetized the area utilizing 0.5% Marcaine mixed with 1% lidocaine and this was injected around the wound for local anesthetic effect. I then he performed excisional debridement of the wound in a sharp fashion utilizing a scalpel. The level of tissue excised and debrided was skin and subcutaneous tissue. The tissue was discarded. I then irrigated the wound and hemostasis was then achieved utilizing electrocautery. Silver gel was then in the base of the wound and then it was dressed with dry gauze and Medipore tape. The patient tolerated the procedure well no complications. All sponges, needles, and instrument counts were correct at the end procedure. EBL was __2_cc. The patient was awakened and taken to recovery in stable and satisfactory condition. Implants None Estimated Blood Loss 2 Drains No Packing No Pathology None sent Complications No immediate complications Condition Stable Disposition PACU [facility] Billing Surgery - Charge Forward: Surgery Billing
[2024-05-07 14:33] LABS: Glucose Point of Care 118 mg/dl (65-105)
[2024-05-07] MEDS: ONDANSETRON INJ 4 MG/2 ML VIAL IV PUSH (14:39)
[2024-05-07] MEDS: oxyCODONE HCL (*CRX) 5 MG TAB IR PO (15:55)
== END 2024-05-07 16:35 | disposition home or self-care (01) ==
PROVIDERS: PCP Family Medicine; Visit Provider Surgery
PROC: (CPT 11005; principal; 2024-05-07 13:30)
DX: S31.109A Unspecified open wound of abdominal wall, unspecified quadrant without penetration into peritoneal cavity, initial encounter (principal); L08.9 Local infection of the skin and subcutaneous tissue, unspecified; F41.8 Other specified anxiety disorders; K21.9 Gastro-esophageal reflux disease without esophagitis; E78.5 Hyperlipidemia, unspecified; E11.9 Type 2 diabetes mellitus without complications; Z79.4 Long term (current) use of insulin; Z96.41 Presence of insulin pump (external) (internal); I10 Essential (primary) hypertension; F17.210 Nicotine dependence, cigarettes, uncomplicated; F17.290 Nicotine dependence, other tobacco product, uncomplicated; E66.01 Morbid (severe) obesity due to excess calories; Z68.43 Body mass index [BMI] 50.0-59.9, adult
CPT/HCPCS: 11005; 36415; 80048; 82948; A9270; J0690; J2250; J2405; J2704; J3010; J7120

== ENCOUNTER 2024-05-16 13:14 | Emergency (ER) | payer OTHER, MEDICAID, SELFPAY ==
[2024-05-16 13:21] VITALS: BP 138/74; PULSE 101; RESP 16; TEMP 36.3; O2SAT 98
--- NOTE | 2024-05-16 14:54 | ED.GENADULT ---
HPI - General Adult General Chief complaint: Wound/Laceration Stated complaint: surgical site bleeding Time Seen by Provider: 05/16/24 14:33 History of Present Illness HPI narrative: Patient is a 38-year-old female who presents ER with concerns for infection of a wound to her lower abdomen. She underwent wound care 05/07/[address] Tolliver. She has been on oral cephalexin. She has follow-up with Dr. Tolliver in 2 days. Over last couple days she has noticed some change in the discharge from the quarter-sized wound to her midline lower abdomen. He has become slightly more brown when she changes the gauze. No fevers or chills or sweats. No new redness to the skin surrounding the wound. Related Data Home Medications Medication Instructions Recorded Confirmed hydroxyzine pamoate 25 mg capsule 25 mg PO TID PRN Anxiety 09/21/19 05/07/24 aripiprazole 20 mg tablet 20 mg PO DAILY 07/18/20 05/07/24 desvenlafaxine succinate 100 mg 100 mg PO DAILY 07/18/20 05/07/24 tablet,extended release 24 hr metoprolol succinate 50 mg 50 mg PO DAILY 09/13/23 05/07/24 tablet,extended release 24 hr Allergies Allergy/AdvReac Type Severity Reaction Status Date / Time clindamycin Allergy Intermediate Hives Verified 05/16/24 13:18 Sulfa (Sulfonamide Allergy Intermediate Hives Verified 05/16/24 13:18 Antibiotics) Review of Systems Constitutional: Constitutional: Reports no additional constitutional complaints Integumentary/Breasts: Skin/Breast: Denies pruritus, Denies erythema, Denies rash and Reports skin ulcer PMFSH Past Medical History Medical History Acute bronchitis Allergies Anxiety Bilateral lower abdominal pain Change in bowel habit Chest wall syndrome Depression Seeing psychiatry Dyspnea Eczema Elbow fracture, right GERD (gastroesophageal reflux disease) Headache, migraine Hyperlipidemia associated with type 2 diabetes mellitus Hypertension Hypoventilation associated with obesity Insulin pump fitting or adjustment Left ureteral stone Leg fracture, left Migraine Seeing neurology Nausea & vomiting KAYLEE (obstructive sleep apnea) PCOS (polycystic ovarian syndrome) Pleuritic chest pain Pneumonia due to COVID-19 virus Post-operative complication PTSD (post-traumatic stress disorder) TIA (transient ischemic attack) Type 2 diabetes mellitus Ureter obstruction Ureterolithiasis Vaginal bleeding Wrist fracture, bilateral Surgical History Surgical History H/O laparoscopy laparoscopic extensive lysis of adhesions/hysteroscopy/ polypectomy/dilatation curettage History of lithotripsy History of removal of cyst Hx of cholecystectomy S/P laparoscopic procedure Family History Family History Father Diabetes mellitus Hypertension Family history of elevated blood lipids Grandparent Diabetes mellitus Family history of coronary artery disease Mother Hypertension Other Cancer Cerebrovascular accident Depression Social History Social History Social History: Angela is very confident filling out medical forms. In the last 12 months she has not received assistance from an organization or program. She started vaping 2 weeks ago and prior to that she smoked cigarettes for 1 year. She is single and has No children . 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 She drinks alcohol socially. She lives with her niece and her family. Code status full code Smoking packs per day: 0.15 Smoking cigarettes per day: 3.0 Years smoked: 5 Smoking pack-years: 0.75 Smoking status: Current every day smoker Tobacco type: cigarettes and e-cigarettes/vaping Second hand tobacco smoke exposure: No Additional smoking assessment comments: STOPPED CIGARETTES MID 2021, NOW VAPING Alcoh
== END 2024-05-16 15:05 | disposition home or self-care (01) ==
PROVIDERS: Emergency Provider Emergency Medicine; PCP Family Medicine
DX: Z48.817 Encounter for surgical aftercare following surgery on the skin and subcutaneous tissue (principal); E11.69 Type 2 diabetes mellitus with other specified complication; E78.5 Hyperlipidemia, unspecified; E66.2 Morbid (severe) obesity with alveolar hypoventilation; Z68.43 Body mass index [BMI] 50.0-59.9, adult; E28.2 Polycystic ovarian syndrome; K21.9 Gastro-esophageal reflux disease without esophagitis; F32.A Depression, unspecified; F41.9 Anxiety disorder, unspecified; F43.10 Post-traumatic stress disorder, unspecified; F17.290 Nicotine dependence, other tobacco product, uncomplicated; Z86.16 Personal history of COVID-19; Z87.01 Personal history of pneumonia (recurrent); Z86.73 Personal history of transient ischemic attack (TIA), and cerebral infarction without residual deficits; Z90.49 Acquired absence of other specified parts of digestive tract; Z79.4 Long term (current) use of insulin; Z79.84 Long term (current) use of oral hypoglycemic drugs; Z79.899 Other long term (current) drug therapy; Z79.85 Long-term (current) use of injectable non-insulin antidiabetic drugs
CPT/HCPCS: 99283

== ENCOUNTER 2024-07-28 07:42 | Outpatient (CLI) | payer OTHER, MEDICAID, SELFPAY ==
--- NOTE | 2024-08-18 20:43 | SLEEP_ITS ---
This report was moved to the correct visit on 08/30/2024. The original report was signed by Ann Rosario MD on 08/19/24 1337. Sleep Study Date of Study: 07/28/2024 Ordering Provider: Dana Roy MD- primary care Raffaele Todd APRN order the study Interpreting Physician: Ann Rosario MD Sleep Study Type: BiPAP Titration Height: 1.7 m Weight: 160.57 kg Body Mass Index: 55.5 Neck Circumference (inches): 21.5 Banks: 12 Reason for Sleep Study Obstructive sleep apnea not responding to BiPAP 19/15, morning headaches; she had increases in her BiPAP to 20/16, still with poor sleep and residual obstructive apneas. She presents for a repeat BiPAP titration. She uses nasal pillow at home. Sleep History Angela Duncan is a 38-year-old female with obstructive sleep apnea who presents for a repeat BiPAP titration. On her last clinic note, her BiPAP pressure was 19/15 from a sleep study in August 2020. She has had problems tolerating this pressure and the mask. Although she is compliant, she wakes with morning headaches after using her current machine. She frequently awakens from sleep feeling short of breath, frequently awakens with heartburn, belching or coughing. She always snores, and frequently she snores loudly enough that others complain about it. She occasionally has difficulty sleeping when she has a cold. She frequently wakes up gasping for breath at night. She frequently has breathing problems at night observed by others. She always sweats excessively at night. She occasionally notices her heart pounding or beating irregularly night. She occasionally falls asleep during the day but never involuntarily and never while driving. She does not have loss of muscle tone with strong emotion. 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 She does not feel paralyzed on waking or falling asleep. She frequently has vivid dreamlike scenes upon awakening or falling asleep. She never feels afraid to go to sleep. She frequently has nightmares, frequently remembers her dreams and frequently has racing thoughts. She rarely feels sad or depressed. She frequently feels anxiety. She frequently notices parts her body jerking. She occasionally kicks at night. She frequently has crawling and aching feelings in her legs and leg pain during the night. She rarely has morning jaw pain. She rarely grinds her teeth at night. She frequently is bothered by pain during the day, frequently is awakened by pain at night and frequently wakes up feeling stiff in the morning with sore or achy muscles or pain in the neck and spine. Normal bedtime is 8:30 p.m. falling asleep within 30 minutes, typically waking between 2 and 3 times during the night for unknown reasons. She may watch television, take additional medications. Her nighttime awakenings on average last 2 hours. These occur in the middle of the night and in the extrusion die repairer hours. Her normal wake time is 5:00 a.m.. She estimates getting between 4 and 6 hours of sleep most nights. She keeps a similar schedule on the weekends. She takes naps in the afternoon or evening. A short nap lasting 10-15 minutes may be refreshing. She is usually drowsy for 3 hours after waking. She feels better in the evening compared to the morning or the afternoon. Habits: Tobacco: 2 cigarettes per day Caffeine: 2 cans daily Alcohol: she did not respond to this question Recreational substances: no response to this question [facility] Past Medical History Medical History Acute bronchitis Allergies Anxiety Back spasm Bilateral leg pain Bilateral lower abdominal pain Change in bowel habit Chest wall syndrome Depression See
== END 2024-07-29 06:51 | disposition home or self-care (01) ==
LOC: ANHCSM 07:45
PROVIDERS: PCP Family Medicine; Visit Provider Nurse Practitioner Family
DX: G47.33 Obstructive sleep apnea (adult) (pediatric) (principal)
CPT/HCPCS: 95811

== ENCOUNTER 2024-07-31 06:44 | Outpatient (CLI) | payer OTHER, MEDICAID, SELFPAY ==
[2024-07-31 07:25] LABS: Basophils Percent Auto 0.3 % (0.2-1.2); Eosinophils Absolute Auto 0.1 K/mm3 (0-0.3); Eosinophils Percent Auto 0.8 % (0-4.4); Hematocrit 47.1 % (37.0-47.0); Immature Granulocyte Absolute 0.12 K/mm3 (0.00-0.031); Immature Granulocyte Percent A 0.8 % (0-0.5); Lymphocytes Absolute Auto 2.79 K/mm3 (0.9-3.2); Lymphocytes Percent Auto 19.2 % (18.3-44.2); Mean Corpuscular HGB Conc 31.8 g/dl (32-36); Mean Corpuscular Hemoglobin 28.8 pg (26-34); Mean Corpuscular Volume 90.6 fl (80-100); Mean Platelet Volume 10.5 fl (7.4-10.4); Monocytes Absolute Auto 1.4 K/mm3 (0.1-0.6); Monocytes Percent Auto 9.9 % (2.6-8.5); Platelet Count Result 259 k/mm3 (150-375); Red Cell Distribution Width 14.6 % (11.5-14.5); White Blood Count 14.5 K/mm3 (4.5-10.0)
[2024-07-31 07:43] LABS: Alanine Aminotransferase 20 U/L (6-35); Albumin Level 3.9 g/dL (3.5-5.1); Alkaline Phosphatase 59 U/L (38-126); Anion Gap 10 mmol/L (4-12); Aspartate Amino Transferase 28 U/L (14-36); Bilirubin,Total 0.7 mg/dL (0.2-1.3); Blood Urea Nitrogen 12 mg/dL (7-17); Calcium 8.4 mg/dL (8.4-10.2); Carbon Dioxide 24 mmol/L (22-30); Chloride 103 mmol/L (98-107); Cholesterol 150 mg/dL (0-200); Creatine Kinase 132 U/L (30-135); Estimated Glomerular Filt Rate > 60; Glucose 181 mg/dL (65-110); HDL Direct 36 mg/dL; Magnesium 1.9 mg/dL (1.6-2.3); Potassium 3.5 mmol/L (3.4-5.0); Sodium 137 mmol/L (137-145); Triglycerides 151 mg/dL (<150)
[2024-07-31 08:04] LABS: Erythrocyte Sedimentation Rate 8 mm/hr (0-20); LDL Cholesterol Direct 97 mg/dL
[2024-07-31 09:26] LABS: Hemoglobin A1C 6.6 % (<5.7)
[2024-07-31 09:37] LABS: Vitamin D 25 Hydroxy 22.4 ng/mL
== END 2024-07-31 06:45 | disposition home or self-care (01) ==
LOC: ANHLAB 06:46
PROVIDERS: PCP Family Medicine; Visit Provider Family Medicine
DX: E55.9 Vitamin D deficiency, unspecified (principal); R53.83 Other fatigue; R25.2 Cramp and spasm; E78.2 Mixed hyperlipidemia; M79.10 Myalgia, unspecified site; E11.9 Type 2 diabetes mellitus without complications
CPT/HCPCS: 36415; 80053; 80061; 82306; 82550; 83036; 83735; 84443; 85025; 85652

== ENCOUNTER 2024-08-05 12:44 | Outpatient (CLI) | payer OTHER, MEDICAID, SELFPAY ==
[2024-08-05 13:27] LABS: Add Urine Microscopic? YES; Appearance Urine Cloudy (Clear); Bilirubin Urine Negative (Negative); Blood Urine Negative (Negative); Color Urine Yellow (Yellow); Glucose Urine UA 3+ mg/dL (Negative); Ketones Urine Trace mg/dL (Negative); Leukocyte Esterase Ur 1+ LEU/UL (Negative); Nitrate Urine Negative (Negative); Protein Urine Trace mg/dL (Negative); Specific Grav Ur 1.034 (1.001-1.035); pH Urine 6.5 (5.0-9.0)
[2024-08-05 13:38] LABS: Bacteria Urine Rare /hpf; Need Manual Microscopic Reviewed; Non Pathogenic Casts 0-2; RBC Urine 0-2 /hpf (0-2); Squamous Epithelial Cell Urine Occasional /hpf (Few); WBC Urine >100 /hpf (0-3)
--- NOTE | 2024-08-18 20:33 | WPDSLEEPSTUD ---
Sleep Study Date of Study: 07/28/2024 Ordering Provider: Dana Roy MD- primary care Raffaele Todd APRN order the study Interpreting Physician: Ann Rosario MD Sleep Study Type: BiPAP Titration Height: 1.7 m Weight: 160.57 kg Body Mass Index: 55.5 Neck Circumference (inches): 21.5 Dobson: 12 Reason for Sleep Study Obstructive sleep apnea not responding to BiPAP 19/15, morning headaches; she had increases in her BiPAP to 20/16, still with poor sleep and residual obstructive apneas. She presents for a repeat BiPAP titration. She uses nasal pillow at home. Sleep History Angela Duncan is a 38-year-old female with obstructive sleep apnea who presents for a repeat BiPAP titration. On her last clinic note, her BiPAP pressure was 19/15 from a sleep study in August 2020. She has had problems tolerating this pressure and the mask. Although she is compliant, she wakes with morning headaches after using her current machine. She frequently awakens from sleep feeling short of breath, frequently awakens with heartburn, belching or coughing. She always snores, and frequently she snores loudly enough that others complain about it. She occasionally has difficulty sleeping when she has a cold. She frequently wakes up gasping for breath at night. She frequently has breathing problems at night observed by others. She always sweats excessively at night. She occasionally notices her heart pounding or beating irregularly night. She occasionally falls asleep during the day but never involuntarily and never while driving. She does not have loss of muscle tone with strong emotion. 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 She does not feel paralyzed on waking or falling asleep. She frequently has vivid dreamlike scenes upon awakening or falling asleep. She never feels afraid to go to sleep. She frequently has nightmares, frequently remembers her dreams and frequently has racing thoughts. She rarely feels sad or depressed. She frequently feels anxiety. She frequently notices parts her body jerking. She occasionally kicks at night. She frequently has crawling and aching feelings in her legs and leg pain during the night. She rarely has morning jaw pain. She rarely grinds her teeth at night. She frequently is bothered by pain during the day, frequently is awakened by pain at night and frequently wakes up feeling stiff in the morning with sore or achy muscles or pain in the neck and spine. Normal bedtime is 8:30 p.m. falling asleep within 30 minutes, typically waking between 2 and 3 times during the night for unknown reasons. She may watch television, take additional medications. Her nighttime awakenings on average last 2 hours. These occur in the middle of the night and in the composition floor setter hours. Her normal wake time is 5:00 a.m.. She estimates getting between 4 and 6 hours of sleep most nights. She keeps a similar schedule on the weekends. She takes naps in the afternoon or evening. A short nap lasting 10-15 minutes may be refreshing. She is usually drowsy for 3 hours after waking. She feels better in the evening compared to the morning or the afternoon. Habits: Tobacco: 2 cigarettes per day Caffeine: 2 cans daily Alcohol: she did not respond to this question Recreational substances: no response to this question PMFSH Past Medical History Medical History Acute bronchitis Allergies Anxiety Back spasm Bilateral leg pain Bilateral lower abdominal pain Change in bowel habit Chest wall syndrome Depression Seeing psychiatry Dyspnea Eczema Elbow fracture, right GERD (gastroesophageal reflux disease) Headache, migraine Hyperlipidemia associated with type 2 diabetes mellitus Hypertension Hypoventilation associated with obesity Insulin pump fitting or adjustment Left ureteral
== END 2024-08-05 12:45 | disposition home or self-care (01) ==
LOC: ANHLAB 12:46
PROVIDERS: PCP Family Medicine; Visit Provider Family Medicine
DX: R30.0 Dysuria (principal)
CPT/HCPCS: 81001; 87086; 87088

== ENCOUNTER 2024-08-19 03:52 | Emergency (ER) | payer OTHER, MEDICAID, SELFPAY ==
--- NOTE | ~2024-08-19 | CT_ITS ---
CT of the Abdomen and Pelvis: Indication: Abdominal pain Technique: 2.5 mm axial scans were obtained through the abdomen and pelvis following intravenous adm inistration of 100 cc of Omnipaque 350. Dose reduction technique was used on this scan by utilizing a utomated exposure control and iterative reconstruction technique. The dose-length product (DLP) was 1 773.60 mGy-cm. COMPARISON: 09/17/2023 Findings: Scans through the lung bases are unremarkable. The liver, spleen, pancreas, right adrenal gland, and right kidney are within normal limits. Cholecys tectomy clips are present. 5 mm obstructing left renal stone present. 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 No evidence of aortic aneurysm. No lymphadenopathy. No bowel obstruction or bowel wall thickening. There are fluid-filled distal small bowel loops. There is no evidence to suggest acute appendicitis. Images through the pelvis were performed. Urinary bladder unremarkable. No pelvic mass. No ascites. Impression: Fluid-filled distal small bowel loops. Correlate for nonspecific gastroenteritis. 5 mm obstructing left renal stone. 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 Reviewed, dictated and finalized at [facility]. Impression: Fluid-filled distal small bowel loops. Correlate for nonspecific gastroenteriti s. 5 mm obstructing left renal stone. 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
[2024-08-19] MEDS: HYDROmorphone HCL INJ (*CRX) 1 MG/ML SYR IV PUSH ×2 (03:30→04:54)
[2024-08-19] MEDS: ONDANSETRON INJ 4 MG/2 ML VIAL IV PUSH (03:30)
[2024-08-19 03:56] VITALS: BP 149/97; PULSE 100; RESP 20; TEMP 36.2; O2SAT 100
--- NOTE | 2024-08-19 03:57 | ED.GENADULT ---
HPI - General Adult General Chief complaint: Nausea/Vomiting/Diarrhea History of Present Illness HPI narrative: 38-year-old female presenting to the emergency department for evaluation for nausea vomiting and abdominal pain. Patient reports last year she did have a D&C and reports her bowel was knicked and patient states that she often has worsening abdominal pain. Patient states the symptoms started bothering her couple days ago and she was worried that she had an intra-abdominal infection. Patient does have history diabetes. Related Data Home Medications Medication Instructions Recorded Confirmed hydroxyzine pamoate 25 mg capsule 25 mg PO TID PRN Anxiety 09/21/19 08/05/24 aripiprazole 20 mg tablet 20 mg PO DAILY 07/18/20 08/05/24 desvenlafaxine succinate 100 mg 100 mg PO DAILY 07/18/20 08/05/24 tablet,extended release 24 hr Allergies Allergy/AdvReac Type Severity Reaction Status Date / Time clindamycin Allergy Intermediate Hives Verified 08/05/24 13:36 Sulfa (Sulfonamide Allergy Intermediate Hives Verified 08/05/24 13:36 Antibiotics) Review of Systems Review of Systems: All systems reviewed & are unremarkable except as noted in HPI and below PMFSH Past Medical History Medical History Acute bronchitis Allergies Anxiety Back spasm Bilateral leg pain Bilateral lower abdominal pain Change in bowel habit Chest wall syndrome Depression Seeing psychiatry Dyspnea Eczema Elbow fracture, right GERD (gastroesophageal reflux disease) Headache, migraine Hyperlipidemia associated with type 2 diabetes mellitus Hypertension Hypoventilation associated with obesity Insulin pump fitting or adjustment Left ureteral stone Leg fracture, left Migraine Seeing neurology Nausea & vomiting KAYLEE (obstructive sleep apnea) PCOS (polycystic ovarian syndrome) Pleuritic chest pain Pneumonia due to COVID-19 virus Post-operative complication PTSD (post-traumatic stress disorder) TIA (transient ischemic attack) Type 2 diabetes mellitus Ureter obstruction Ureterolithiasis Vaginal bleeding Wrist fracture, bilateral Surgical History Surgical History H/O laparoscopy laparoscopic extensive lysis of adhesions/hysteroscopy/ polypectomy/dilatation curettage History of lithotripsy History of removal of cyst Hx of cholecystectomy Hx of excision of mass Excisional sharp debridement with scalpel of necrotic skin and subcutaneous tissue lower abdominal wall wound 05/07/24 S/P laparoscopic procedure Family History Family History Father Diabetes mellitus Hypertension Family history of elevated blood lipids Grandparent Diabetes mellitus Family history of coronary artery disease Mother Hypertension Other Cancer Cerebrovascular accident Depression Social History Social History Social History: Angela is very confident filling out medical forms. In the last 12 months she has not received assistance from an organization or program. She started vaping 2 weeks ago and prior to that she smoked cigarettes for 1 year. She is single and has No children . 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 She drinks alcohol socially. She lives with her niece and her family. Code status full code Smoking packs per day: 0.15 Smoking cigarettes per day: 3.0 Years smoked: 5 Smoking pack-years: 0.75 Smoking status: Current every day smoker Tobacco type: cigarettes and e-cigarettes/vaping Second hand tobacco smoke exposure: No Additional smoking assessment comments: STOPPED CIGARETTES MID 2021, NOW VAPING Alcohol intake: current Drinks per week: 1 Alcohol use details: 1-2/YEAR Substance use: current Substance use type: marijuana Other substance usage details: every once in awhile
--- NOTE | 2024-08-19 03:59 | PC.NURSE ---
please see down time charting
[2024-08-19 04:12] LABS: Basophils Absolute Auto 0.1 K/mm3 (0.0-0.1); Basophils Percent Auto 0.4 % (0.2-1.2); Eosinophils Absolute Auto 0.2 K/mm3 (0-0.3); Eosinophils Percent Auto 1.2 % (0-4.4); Hematocrit 47.3 % (37.0-47.0); Immature Granulocyte Absolute 0.09 K/mm3 (0.00-0.031); Immature Granulocyte Percent A 0.7 % (0-0.5); Lymphocytes Absolute Auto 2.44 K/mm3 (0.9-3.2); Mean Corpuscular HGB Conc 31.7 g/dl (32-36); Mean Corpuscular Hemoglobin 28.9 pg (26-34); Mean Corpuscular Volume 91.1 fl (80-100); Mean Platelet Volume 10.4 fl (7.4-10.4); Monocytes Percent Auto 7.6 % (2.6-8.5); Neutrophils Absolute Auto 9.8 K/mm3 (1.3-6.7); Neutrophils Percent Auto 72.1 % (45.5-73.1); Platelet Count Result 298 k/mm3 (150-375); Red Blood Count 5.19 M/mm3 (4.2-5.4); Red Cell Distribution Width 14.6 % (11.5-14.5); White Blood Count 13.6 K/mm3 (4.5-10.0)
[2024-08-19 04:20] LABS: Alanine Aminotransferase 27 U/L (6-35); Alkaline Phosphatase 65 U/L (38-126); Anion Gap 7 mmol/L (4-12); Aspartate Amino Transferase 31 U/L (14-36); Bilirubin,Total 0.8 mg/dL (0.2-1.3); Blood Urea Nitrogen 8 mg/dL (7-17); Calcium 8.8 mg/dL (8.4-10.2); Carbon Dioxide 28 mmol/L (22-30); Chloride 104 mmol/L (98-107); Estimated CRCL calculation 146 ml/min; Estimated Glomerular Filt Rate > 60; Glucose 127 mg/dL (65-110); Potassium 3.7 mmol/L (3.4-5.0); Sodium 139 mmol/L (137-145)
[2024-08-19 04:39] VITALS: BP 121/65; PULSE 98; RESP 18; O2SAT 94
[2024-08-19 04:55] LABS: Magnesium 1.9 mg/dL (1.6-2.3)
[2024-08-19 05:36] LABS: Add Urine Microscopic? YES; Appearance Urine Clear (Clear); Bacteria Urine None Seen /hpf; Bilirubin Urine Negative (Negative); Blood Urine Negative (Negative); Budding Yeast Urine Present /hpf; Color Urine Yellow (Yellow); Glucose Urine UA 3+ mg/dL (Negative); Ketones Urine Trace mg/dL (Negative); Leukocyte Esterase Ur Negative LEU/UL (Negative); Need Manual Microscopic Reviewed; Nitrate Urine Negative (Negative); Non Pathogenic Casts 0-2; Protein Urine Trace mg/dL (Negative); RBC Urine 0-2 /hpf (0-2); Specific Grav Ur 1.033 (1.001-1.035); Squamous Epithelial Cell Urine None Seen /hpf (Few); Urobilinogen Urine 0.2 mg/dL (<2.0); pH Urine 5.5 (5.0-9.0)
[2024-08-19 06:43] VITALS: BP 142/55; PULSE 98; RESP 18; O2SAT 95
== END 2024-08-19 07:30 | disposition home or self-care (01) ==
PROVIDERS: Emergency Provider Emergency Medicine; PCP Family Medicine
DX: R11.2 Nausea with vomiting, unspecified (principal); R19.7 Diarrhea, unspecified; E11.69 Type 2 diabetes mellitus with other specified complication; E78.5 Hyperlipidemia, unspecified; E66.2 Morbid (severe) obesity with alveolar hypoventilation; Z68.43 Body mass index [BMI] 50.0-59.9, adult; E28.2 Polycystic ovarian syndrome; K21.9 Gastro-esophageal reflux disease without esophagitis; F32.A Depression, unspecified; F41.9 Anxiety disorder, unspecified; F17.290 Nicotine dependence, other tobacco product, uncomplicated; Z86.73 Personal history of transient ischemic attack (TIA), and cerebral infarction without residual deficits; Z86.16 Personal history of COVID-19; Z87.01 Personal history of pneumonia (recurrent); Z87.442 Personal history of urinary calculi; Z90.49 Acquired absence of other specified parts of digestive tract; Z79.4 Long term (current) use of insulin; Z79.84 Long term (current) use of oral hypoglycemic drugs; Z79.85 Long-term (current) use of injectable non-insulin antidiabetic drugs; Z79.899 Other long term (current) drug therapy; N20.0 Calculus of kidney; D17.79 Benign lipomatous neoplasm of other sites
CPT/HCPCS: 36415; 74177; 80053; 81001; 83735; 85025; 96374; 96375; 96376; 99284; J1171; J2405; Q9967

== ENCOUNTER 2024-09-09 13:57 | Outpatient (CLI) | payer OTHER, MEDICAID, SELFPAY ==
[2024-09-09 14:02] LABS: Basophils Absolute Auto 0.1 K/mm3 (0.0-0.1); Basophils Percent Auto 0.4 % (0.2-1.2); Eosinophils Absolute Auto 0.1 K/mm3 (0-0.3); Eosinophils Percent Auto 0.4 % (0-4.4); Hematocrit 52.4 % (37.0-47.0); Hemoglobin 17.1 g/dL (12.0-15.0); Immature Granulocyte Absolute 0.17 K/mm3 (0.00-0.031); Immature Granulocyte Percent A 0.8 % (0-0.5); Lymphocytes Absolute Auto 3.54 K/mm3 (0.9-3.2); Lymphocytes Percent Auto 15.8 % (18.3-44.2); Mean Corpuscular HGB Conc 32.6 g/dl (32-36); Mean Corpuscular Hemoglobin 29.4 pg (26-34); Mean Corpuscular Volume 90.2 fl (80-100); Mean Platelet Volume 10.1 fl (7.4-10.4); Monocytes Absolute Auto 1.8 K/mm3 (0.1-0.6); Monocytes Percent Auto 8.1 % (2.6-8.5); Neutrophils Absolute Auto 16.8 K/mm3 (1.3-6.7); Neutrophils Percent Auto 74.5 % (45.5-73.1); Platelet Count Result 333 k/mm3 (150-375); Red Blood Count 5.81 M/mm3 (4.2-5.4); Red Cell Distribution Width 14.6 % (11.5-14.5); White Blood Count 22.5 K/mm3 (4.5-10.0)
[2024-09-09 14:22] LABS: Alanine Aminotransferase 33 U/L (6-35); Albumin Level 4.6 g/dL (3.5-5.1); Alkaline Phosphatase 63 U/L (38-126); Anion Gap 13 mmol/L (4-12); Aspartate Amino Transferase 31 U/L (14-36); Blood Urea Nitrogen 13 mg/dL (7-17); Calcium 9.6 mg/dL (8.4-10.2); Carbon Dioxide 26 mmol/L (22-30); Chloride 100 mmol/L (98-107); Estimated Glomerular Filt Rate > 60; Glucose 170 mg/dL (65-110); Potassium 4.2 mmol/L (3.4-5.0); Sodium 139 mmol/L (137-145)
[2024-09-09 14:52] LABS: Atypical Lymphocytes Present; Platelet Estimate Adequate (Adequate); Schistocytes None Seen
[2024-09-09 15:49] LABS: Toxigenic C. Diff NEGATIVE (NEGATIVE)
== END 2024-09-09 13:58 | disposition home or self-care (01) ==
PROVIDERS: PCP Family Medicine; Visit Provider Family Medicine
DX: R19.7 Diarrhea, unspecified (principal); E11.9 Type 2 diabetes mellitus without complications
CPT/HCPCS: 36415; 80053; 85025; 87493

== ENCOUNTER 2024-09-10 09:15 | Emergency (ER) | payer OTHER, MEDICAID, SELFPAY ==
--- NOTE | ~2024-09-10 | CT_ITS ---
EXAMINATION: CT abdomen pelvis w con DATE: 09/10/2024 11:40 INDICATION: Leukocytosis. Diarrhea. Abdominal pain. TECHNIQUE: Computed tomography (CT) of the abdomen and pelvis was performed with 100 mL Omnipaque 350 intravenous contrast. Automated exposure control and iterative reconstruction technique were employe d. The dose-length product was 1694.34 mGy-cm. COMPARISON: CT abdomen and pelvis 08/19/2024 FINDINGS: The visualized portions of the lung bases demonstrate mild atelectasis. No pleural effusion . The heart size is normal. No pericardial effusion. The liver and spleen are normal. There are ruff es of cholecystectomy. The pancreas and right adrenal gland are normal. There is a 5.3 cm mass in lef t adrenal gland containing fat, consistent with a myelolipoma. There is a 15 mm cyst in right kidney. There is cortical thinning of left kidney. There is a 6 mm stone in left kidney. There are no dilate d loops of bowel. The appendix is normal. There are no pathologically enlarged lymph nodes. There is no free intraperitoneal fluid. There is mild thoracic and lumbar spondylosis. IMPRESSION: 1. No etiology for the patient's symptoms. Reviewed, dictated and finalized at location B.
--- NOTE | ~2024-09-10 | XR_ITS ---
EXAMINATION: XR chest 2V DATE: 09/10/2024 11:58 INDICATION: Leukocytosis. Epigastric abdominal pain. TECHNIQUE: Frontal and lateral views of the chest were obtained. COMPARISON: Chest 2 views 02/12/2024 FINDINGS: There is no pneumonia, pleural effusion, or pneumothorax. The heart size is normal. IMPRESSION: 1. No acute cardiopulmonary disease. Reviewed, dictated and finalized at location B.
[2024-09-10 09:20] VITALS: BP 152/104; PULSE 111; RESP 18; TEMP 36.3; O2SAT 100
[2024-09-10 09:48] LABS: Basophils Absolute Auto 0.1 K/mm3 (0.0-0.1); Basophils Percent Auto 0.3 % (0.2-1.2); Eosinophils Absolute Auto 0.1 K/mm3 (0-0.3); Eosinophils Percent Auto 0.6 % (0-4.4); Hematocrit 52.2 % (37.0-47.0); Immature Granulocyte Absolute 0.16 K/mm3 (0.00-0.031); Immature Granulocyte Percent A 0.8 % (0-0.5); Lymphocytes Absolute Auto 3.41 K/mm3 (0.9-3.2); Lymphocytes Percent Auto 16.7 % (18.3-44.2); Mean Corpuscular HGB Conc 32.6 g/dl (32-36); Mean Corpuscular Hemoglobin 29.3 pg (26-34); Mean Corpuscular Volume 89.8 fl (80-100); Mean Platelet Volume 10.2 fl (7.4-10.4); Monocytes Absolute Auto 1.6 K/mm3 (0.1-0.6); Monocytes Percent Auto 7.7 % (2.6-8.5); Neutrophils Absolute Auto 15.1 K/mm3 (1.3-6.7); Neutrophils Percent Auto 73.9 % (45.5-73.1); Platelet Count Result 318 k/mm3 (150-375); Red Blood Count 5.81 M/mm3 (4.2-5.4); Red Cell Distribution Width 14.4 % (11.5-14.5); White Blood Count 20.4 K/mm3 (4.5-10.0)
[2024-09-10 10:00] LABS: Lactic Acid Reflex 2.9 mmol/L (0.7-2.0); Prothrombin Time 13.3 Seconds (11.1-14.7)
[2024-09-10 10:01] LABS: Partial Thromboplastin Time 25.6 Seconds (22.3-36.8)
[2024-09-10 10:02] LABS: Alanine Aminotransferase 30 U/L (6-35); Albumin Level 4.7 g/dL (3.5-5.1); Alkaline Phosphatase 67 U/L (38-126); Anion Gap 16 mmol/L (4-12); Aspartate Amino Transferase 31 U/L (14-36); Bilirubin,Total 1.2 mg/dL (0.2-1.3); Blood Urea Nitrogen 13 mg/dL (7-17); CRP < 0.5 mg/dL (<1.0); Calcium 9.8 mg/dL (8.4-10.2); Carbon Dioxide 21 mmol/L (22-30); Chloride 102 mmol/L (98-107); Estimated CRCL calculation 129 ml/min; Estimated Glomerular Filt Rate > 60; Glucose 166 mg/dL (65-110); Sodium 139 mmol/L (137-145)
--- NOTE | 2024-09-10 10:07 | ED_ITS ---
HPI - Recheck/Abnormal Lab/Rx General Chief Complaint: Recheck/Abnormal Lab/Rx Stated Complaint: abnormal labs Time Seen by Provider: 09/10/24 09:33 Source: patient Mode of arrival: ambulatory Limitations: no limitations History of Present Illness HPI narrative: patient presents with upper abdominal pain and diarrhea. She was seen on 08/19/2024 for this which time she states her white blood cell count was 13. She followed up with her primary care physician Dr. Roy who ordered follow-up labs yesterday. This included C diff which was negative and blood work. Her blood work resulted with elevated leukocytosis, reported 22.5. She has insulin-dependent diabetes mellitus and states that her blood sugars have been running high recently but then improved. The pain is described as epigastric but radiating to her sides with outwardly and down. She has a history of a D&C complicated by a knicked bowel in December 2022 which led to an abscess formation at the unknown where exactly. She denies any fever. she has had a cholecystectomy. She has been nauseated without vomiting. Her last oral i ntake was Jell-O at approximately 6:00 a.m.. She does continue to have an appetite. She has noticed she has had increased eructation. She has continued to have liquid diarrheal stool although denies any blood. No recent antibiotics. Related Data Home Medications Medication Instructions Recorded Confirmed hydroxyzine pamoate 25 mg capsule 25 mg PO TID PRN Anxiety 09/21/19 08/05/24 aripiprazole 20 mg tablet 20 mg PO DAILY 07/18/20 08/05/24 desvenlafaxine succinate 100 mg 100 mg PO DAILY 07/18/20 08/05/24 tablet,extended release 24 hr Allergies Allergy/AdvReac Type Severity Reaction Status Date / Time clindamycin Allergy Intermediate Hives Verified 08/05/24 13:36 Sulfa (Sulfonamide Allergy Intermediate Hives Verified 08/05/24 13:36 Antibiotics) [facility] Past Medical History Medical History Acute bronchitis Allergies Anxiety Back spasm Bilateral leg pain Bilateral lower abdominal pain Change in bowel habit Chest wall syndrome Depression Seeing psychiatry Dyspnea Eczema Elbow fracture, right GERD (gastroesophageal reflux disease) Headache, migraine Hyperlipidemia associated with type 2 diabetes mellitus Hypertension Hypoventilation associated with obesity Insulin pump fitting or adjustment Left ureteral stone Leg fracture, left Migraine Seeing neurology Nausea & vomiting KAYLEE (obstructive sleep apnea) PCOS (polycystic ovarian syndrome) Pleuritic chest pain Pneumonia due to COVID-19 virus Post-operative complication PTSD (post-traumatic stress disorder) TIA (transient ischemic attack) Type 2 diabetes mellitus Ureter obstruction Ureterolithiasis Vaginal bleeding Wrist fracture, bilateral Surgical History Surgical History H/O laparoscopy laparoscopic extensive lysis of adhesions/hysteroscopy/ polypectomy/dilatation curettage History of lithotripsy History of removal of cyst Hx of cholecystectomy Hx of excision of mass Excisional sharp debridement with scalpel of necrotic skin and subcutaneous tissue lower abdominal wall wound 05/07/24 S/P laparoscopic procedure Family History Family History Father Diabetes mellitus Hypertension Family history of elevated blood lipids Grandparent Diabetes mellitus Family history of coronary artery disease Mother Hypertension Other Cancer Cerebrovascular accident Depression Social History Social History Social History: Angela is very confident filling out medical forms. In the last 12 months she has not received assistance from an organization or program. She started vaping 2 weeks ago and prior to that she smoked cigarettes for 1 year. She is single and has No children . 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 She drinks alcohol socially. She lives with her niece and her family. Code status full code Smoking packs per day: 0.15 Smoking cigarettes per day: 3.0 Years smoked: 5 Smoking pack-years: 0.75 Smoking status: Current every day smoker Tobacco type: cigarettes and e-cigarettes/vaping Second hand tobacco smoke exposure: No Additional smoking assessment comments: STOPPED CIGARETTES MID 2021, NOW VAPING Alcohol intake: current Drinks per week: 1 Alcohol use details: 1-2/YEAR Substance use: current Substance use type: marijuana Other substance usage details: every once in awhile. Do You Feel Safe in your Home?: Yes Lack of Transportation: No Lack of Food: Never True Current Housing: I Have Housing Concerned About Future Housing: No Difficulty Paying Gas/Electric Bills: No Difficulty Paying for Meds: No Currently Unemployed: No Education: Trade/Vocational Certificate Difficulty w/ Childcare or Family Care: No Living arrangements: with family Additional living arrangements comments: lives with her niece Occupation/Education: occupation Additional occupation/education comments: [employer] continuum of care manager Gender identity (if verbalized by the patient): Female Sexual Orientation (if Verbalized by the Patient): Straight or Heterosexual Spiritual care concerns: No Agree to blood products: Yes Exam Narrative: GENERAL: well-nourished, and in no acute distress. HEAD: Normocephalic, atraumatic. EYES: Non injected, non icteric ENT: Nares clear, no rhinorrhea or epistaxis. NECK: Supple. CHEST: Speaking in full sentences. No respiratory distress. HEART: Tachycardic rate and rhythm. ABDOMEN: Soft, morbidly obese with large pannus. mild tenderness to palpation at the epigastrium and right upper quadrant but also, to a greater extent in the right lower quadrant. no rigidity or guarding. Not peritoneal. Dexcom in place on lower abdomen. EXTREMITIES: Normal range of motion. No lower extremity edema. SKIN: Warm, dry, no rash. NEURO: No focal deficits. Alert and oriented x3. PSYCH: Normal mood and affect. Course Vital Signs Vital signs: Vital Signs Temperature 97.3 F L 09/10/24 09:20 Pulse Rate 111 H 09/10/24 09:20 Respiratory Rate 18 09/10/24 09:20 Blood Pressure 152/104 H 09/10/24 09:20 Pulse Oximetry 100 09/10/24 09:20 Oxygen Delivery Room Air 09/10/24 09:20 Temperature 97.3 F L 09/10/24 09:20 Pulse Rate 102 H 09/10/24 13:30 Respiratory Rate 16 09/10/24 13:30 Blood Pressure 123/83 09/10/24 13:30 Pulse Oximetry 95 09/10/24 13:30 Oxygen Delivery Room Air 09/10/24 09:20 MDM - Recheck/Abnormal Lab/Rx MDM Narrative Medical decision making narrative: Patient presents with abdominal pain and diarrhea. She presented on 08/19/24 for these symptoms. Had outpatient labs ordered by PCP Dr Roy during ED follow up appointment which resulted with leukocytosis. in the emergency department she is afebrile with vital signs notable for mild tachycardia as well as hypertension. My differential diagnosis for chronic diarrhea includes, but not limited to: Infectious (giardia, E histolytica, C difficile), medications (antibiotics, antacids, lactulose, sorbitol, chemotherapy, colchicine, gold), inflammatory etiology (such as IBD, radiation enteritis, ischemic colitis, diverticulitis). Also possible are malabsorption issues due to bile salt deficiency (cirrhosis, cholestasis, ileal disease, bacterial overgrowth), pancreatic insufficiency, mucosal abnormalities (celiac sprue, tropical sprue, Whipple disease), or lactose intolerance. They are also secretory causes such as hormonal (VIP, carcinoid tumor, medullary cancer of thyroid, Pelon Olvera, glucagon, thyroxine), laxative abuse, neoplasm; finally motility issues may be the cause (IBS, scleroderma, hyperthyroidism, diabetic autonomic neuropathy). Lactic acid is elevated, will add 2nd bolus. Notably, magnesium is normal despite chronic diarrhea As are other electrolytes. Urinalysis with glucosuria and yeast. Patient states she chronically has yeast detected given her diabetes. She is otherwise asymptomatic and she denies any dysuria, hematuria, urgency, frequency, pruritus, etc. for this reason, because she is not a , renal transplant patient, , neutropenic, or undergoing a renal tract procedure, will defer treating asymptomatic yeast. Patient reassessed at approximately 12:30 p.m.. She states she is still having pain and nausea, that the initial medications worked but wore off. Given the combination of epigastric abdominal pain with nausea, will trial a combination of Haldol and diphenhydramine to see if similar efficacy. Patient is reassessed approximately 2:20 p.m.. She is sitting in a chair beside the bed, She states she is still feeling unwell. We discussed her extensive workup thus far. Lactic acidosis has resolved. In sum, This patient presents with abdominal pain or unclear etiology. A CT scan was performed to evaluate for potential causes of the abdominal pain, however, neither the clinical exam nor the CT has identified an emergent etiology for the abdominal pain. Specifically, given the benign exam, the laboratory studies, and unremarkable CT, I have a very low suspicion for appendicitis, ischemic bowel, bowel perforation, or any other life threatening disease. I have discussed with the patient the level of uncertainty with undifferentiated abdominal pain and clearly explained the need to follow-up as noted on the discharge instructions, or return to the Emergency Department immediately if the pain worsens, develops fever, persistent and uncontrolled vomiting, or for any new symptoms or concerns. She does state she is already taking Bentyl and not in need of a refill for this medication. She could use a refill for her Zofran so it is provided. Already has follow-up with Gastroenterology scheduled for 09/29/2024. Discharged in stable condition with a work note. Medical Records Attestation: I reviewed the patient's medical records. Medical records narrative: Confirmed that patient has C difficile testing yesterday was negative. Lab Data Attestation: I reviewed the patient's lab results. Lab results narrative: Hyperglycemia with an anion gap but no davis acidosis Leukocytosis and her hemoglobin and hematocrit are elevated. 09/10/24 09:41 09/10/24 09:41 Labs: Lab Results 09/10/24 09/10/24 09/10/24 Range/Units 09:41 10:40 13:06 WBC 20.4 H (4.5-10.0) K/mm3 RBC 5.81 H (4.2-5.4) M/mm3 Hgb 17.0 H (12.0-15.0) g/dL Hct 52.2 H (37.0-47.0) % MCV 89.8 (80-100) fl MCH 29.3 (26-34) pg MCHC 32.6 (32-36) g/dl RDW 14.4 (11.5-14.5) % Plt Count 318 (150-375) k/mm3 MPV 10.2 (7.4-10.4) fl Immature Gran % (Auto) 0.8 H (0-0.5) % Neut % (Auto) 73.9 H (45.5-73.1) % Lymph % (Auto) 16.7 L (18.3-44.2) % [place] % (Auto) 7.7 (2.6-8.5) % Eos % (Auto) 0.6 (0-4.4) % Baso % (Auto) 0.3 (0.2-1.2) % Lymph # (Auto) 3.41 H (0.9-3.2) K/mm3 [place] # (Auto) 1.6 H (0.1-0.6) K/mm3 Eos # (Auto) 0.1 (0-0.3) K/mm3 Baso # (Auto) 0.1 (0.0-0.1) K/mm3 Abs Immat Gran (auto) 0.16 H (0.00-0.031) K/mm3 Absolute Neuts (auto) 15.1 H (1.3-6.7) K/mm3 Absolute Nucleated RBC 0.000 (0.0-0.012) K/mm3 Nucleated RBC % 0.0 (0.0-0.2) % Atypical Lymphocytes Present Platelet Estimate Adequate (Adequate) Microcytosis 1+ (NORMAL) Schistocytes None seen PT 13.3 (11.1-14.7) Seconds INR 1.0 APTT 25.6 (22.3-36.8) Seconds Sodium 139 (137-145) mmol/L Potassium 4.0 (3.4-5.0) mmol/L Chloride 102 (98-107) mmol/L Carbon Dioxide 21 L (22-30) mmol/L Anion Gap 16 H (4-12) mmol/L BUN 13 (7-17) mg/dL Creatinine 0.80 (0.7-1.0) mg/dL Estim Creat Clear Calc 129 ml/min Estimated GFR > 60 (59 - ) Glucose 166 H (65-110) mg/dL Lactic Acid 2.9 H 1.4 (0.7-2.0) mmol/L Calcium 9.8 (8.4-10.2) mg/dL Magnesium 1.7 (1.6-2.3) mg/dL Total Bilirubin 1.2 (0.2-1.3) mg/dL AST 31 (14-36) U/L ALT 30 (6-35) U/L Alkaline Phosphatase 67 (38-126) U/L C-Reactive Protein < 0.5 (<1.0) mg/dL Total Protein 9.0 H (6.3-8.2) g/dL Albumin 4.7 (3.5-5.1) g/dL Beta-Hydroxybutyrate/Acetoacetate 0.11 (0.02-0.27) mmol/L Urine Color Yellow (Yellow) Urine Appearance Clear (Clear) Urine pH 5.5 (5.0-9.0) Ur Specific Marshall 1.034 (1.001-1.035) Urine Protein Trace (Negative) mg/dL Urine Glucose (UA) 3+ H (Negative) mg/dL Urine Ketones Negative (Negative) mg/dL Ur Blood (Man) Negative (Negative) Urine Nitrate Negative (Negative) Urine Bilirubin Negative (Negative) Urine Urobilinogen 0.2 (<2.0) mg/dL Add Ur Microanalysis Reviewed Leukocyte Esterase Rfl Negative (Negative) CATRACHO/UL Urine RBC 0-2 (0-2) /hpf Urine WBC 0-5 (0-3) /hpf Ur Squamous Epith Cells None seen (Few) /hpf Urine Bacteria None seen /hpf Urine Casts 0-2 Urine Yeast (Budding) Present H (None) /hpf Imaging Data Radiologist's impression: Impressions Abdomen/Pelvis CT 09/10/24 11:43 IMPRESSION: 1. No etiology for the patient's symptoms. Chest X-Ray 09/10/24 11:59 IMPRESSION: 1. No acute cardiopulmonary disease. Discharge Plan Discharge Clinical Impression: Chronic diarrhea, Abdominal pain, Hyperglycemia due to diabetes mellitus, Glucosuria, Yeast detected, Encounter for medication refill Patient Disposition: Home, Self-Care Condition: Stable Instructions: Antibiotic Form, Chronic Diarrhea (ED), Abdominal Pain (ED), Diabetic Hyperglycemia (ED) Additional Instructions: as we discussed, unclear etiology for your abdominal pain and chronic diarrhea. Keep your upcoming appointment with the horses or mules teamster you have scheduled for 09/29/2024. Continue taking your other medications as prescribed and I will provide a refill for your ondansetron/ Zofran oral disintegrating tablets. Return to the emergency department with any new or worsening symptoms. Prescriptions: New ondansetron 4 mg tablet,disintegrating 4 mg PO Q8H PRN (Reason: nausea and vomiting) Qty: 10 0RF No Action (DME) lancets [OneTouch Delica Plus Lancet] 33 gauge misc See Rx Instructions .Route Qty: 600 3RF Rx Instructions: Use to check glucose 3-4 times a day (DME) Dexcom G6 Information Systems Audit Manager Misc See Rx Instructions .ROUTE .MEDSUPPLY Qty: 1 0RF Rx Instructions: Will use smartphone cyclobenzaprine 10 mg tablet 10 mg PO TID PRN (Reason: muscle spasm) Qty: 60 0RF aripiprazole 20 mg tablet 20 mg PO DAILY desvenlafaxine succinate 100 mg tablet extended release 24 hr 100 mg PO DAILY ondansetron 4 mg tablet,disintegrating 4 mg PO Q6H PRN (Reason: nausea and vomiting) Qty: 30 3RF Qulipta 60 mg tablet 60 mg PO DAILY Qty: 30 6RF Ubrelvy 100 mg tablet See Rx Instructions .ROUTE .COMPLEX Qty: 10 3RF Dose Instruction: 100 MG ORALLY ONCE NEEDED FOR MIGRAINE HEADACHE A SINGLE DOSE MAY REPEAT ONCE IN >=2 HOURS AFTER FIRST DOSE IF NEEDED Rx Instructions: 100 MG ORALLY ONCE NEEDED FOR MIGRAINE HEADACHE A SINGLE DOSE MAY REPEAT ONCE IN >=2 HOURS AFTER FIRST DOSE IF NEEDED hydroxyzine pamoate 25 mg capsule 25 mg PO TID PRN (Reason: Anxiety) ondansetron 4 mg tablet,disintegrating 4 mg PO Q8H PRN (Reason: nausea and vomiting) Qty: 14 0RF (DME) pen needle, diabetic [Pen Needle] 32 gauge x 5/32 needle See Rx Instructions .Route Qty: 100 8RF Rx Instructions: As directed daily atorvastatin 10 mg tablet 10 mg PO DAILY Qty: 90 3RF insulin aspart U-100 [Novolog U-100 Insulin aspart] 100 unit/mL solution 120 unit continuous subcutaneous infusion DAILY Qty: 110 3RF Rx Instructions: via insulin pump omeprazole 20 mg capsule,delayed release(DR/EC) 20 mg PO DAILY Qty: 90 3RF (DME) Dexcom G7 Sensor Device See Rx Instructions .ROUTE .MEDSUPPLY Qty: 9 3RF Rx Instructions: Use to monitor glcuose (DME) OneTouch Verio test strips Strip See Rx Instructions .ROUTE .COMPLEX Qty: 100 7RF Dose Instruction: USE TO CHECK GLUCOSE 3-4 TIMES A DAY Rx Instructions: USE TO CHECK GLUCOSE 3-4 TIMES A DAY Jardiance 25 mg tablet See Rx Instructions .ROUTE .COMPLEX Qty: 30 2RF Dose Instruction: TAKE 1 TABLET BY MOUTH EVERY DAY Rx Instructions: TAKE 1 TABLET BY MOUTH EVERY DAY hydrocodone-acetaminophen 5-325 mg tablet 1 tablet PO Q6H PRN (Reason: pain) Qty: 20 0RF amlodipine 2.5 mg tablet 2.5 mg PO DAILY Qty: 90 1RF metformin 1,000 mg tablet 1,000 mg PO BID Qty: 180 1RF metoprolol succinate 50 mg tablet extended release 24 hr 50 mg PO DAILY Qty: 30 3RF eszopiclone 3 mg tablet 3 mg PO ONCE Qty: 1 0RF Rx Instructions: Take tablet with you to sleep center for sleep study ibuprofen 800 mg tablet 800 mg PO Q8H PRN (Reason: pain) Qty: 60 1RF Mounjaro 15 mg/0.5 mL pen injector 15 mg subcut WEEKLY Qty: 6 2RF dicyclomine 10 mg capsule 10 mg PO TID Qty: 270 1RF cholestyramine-aspartame [Cholestyramine Light] 4 gram powder in packet 4 g PO DAILY Qty: 60 0RF Rx Instructions: administer w/meal; avoid other meds within 1hr before or 4-6hr after dose Follow-up/Referrals: Dana Roy MD [Primary Care Provider] - Kevin Coburn MD [Physician] - (keep your upcoming GI appointment) Stand Alone Forms: Work/School Release IP Time of Disposition: 14:29
[2024-09-10 10:33] LABS: Magnesium 1.7 mg/dL (1.6-2.3)
[2024-09-10 10:47] LABS: Microcytosis 1+ (NORMAL); Platelet Estimate Adequate (Adequate); Schistocytes None Seen
[2024-09-10 10:48] LABS: Atypical Lymphocytes Present
[2024-09-10] MEDS: LACTATED RINGERS 1,000 ML 999 ML IV CONT (10:50)
[2024-09-10] MEDS: ONDANSETRON INJ 4 MG/2 ML VIAL IV PUSH (10:54)
[2024-09-10] MEDS: FAMOTIDINE 20 MG/2 ML VIAL IV PUSH (10:54)
[2024-09-10] MEDS: MORPHINE SULFATE (*CRX) 4 MG/ML INJ 8 MG IV PUSH (10:55)
[2024-09-10] MEDS: SODIUM CHLORIDE 0.9% IV 1,000 ML 999 ML IV CONT (10:55)
[2024-09-10 11:03] LABS: Add Urine Microscopic? YES; Appearance Urine Clear (Clear); Bacteria Urine None Seen /hpf; Bilirubin Urine Negative (Negative); Blood Urine Negative (Negative); Budding Yeast Urine Present /hpf; Color Urine Yellow (Yellow); Glucose Urine UA 3+ mg/dL (Negative); Ketones Urine Negative (Negative); Leukocyte Esterase Ur Negative LEU/UL (Negative); Need Manual Microscopic Reviewed; Nitrate Urine Negative (Negative); Non Pathogenic Casts 0-2; Protein Urine Trace mg/dL (Negative); RBC Urine 0-2 /hpf (0-2); Specific Grav Ur 1.034 (1.001-1.035); Squamous Epithelial Cell Urine None Seen /hpf (Few); Urobilinogen Urine 0.2 mg/dL (<2.0); pH Urine 5.5 (5.0-9.0)
[2024-09-10 11:06] LABS: WBC Urine 0-5 /hpf (0-3)
[2024-09-10 11:42] LABS: Beta-Hydroxybutyrate/Acetoacetate 0.11 mmol/L (0.02-0.27)
[2024-09-10] MEDS: diphenhydrAMINE HCl INJ 50 MG/ML VIAL 25 MG IV PUSH (12:41)
[2024-09-10 12:42] VITALS: BP 141/84; PULSE 106; RESP 18; O2SAT 95
[2024-09-10] MEDS: HALOPERIDOL LACTATE 5 MG/ML VIAL IV PUSH (12:43)
[2024-09-10 12:45] LABS: Reflex Lactic Acid Yes or No Add Lactic
[2024-09-10 13:27] LABS: Lactic Acid 1.4 mmol/L (0.7-2.0)
[2024-09-10 13:30] VITALS: BP 123/83; PULSE 102; RESP 16; O2SAT 95
== END 2024-09-10 14:35 | disposition home or self-care (01) ==
PROVIDERS: Emergency Provider Student in an Organized Health Care Education/Training Program; PCP Family Medicine
DX: K52.9 Noninfective gastroenteritis and colitis, unspecified (principal); E11.65 Type 2 diabetes mellitus with hyperglycemia; F41.8 Other specified anxiety disorders; L30.9 Dermatitis, unspecified; K21.9 Gastro-esophageal reflux disease without esophagitis; E78.5 Hyperlipidemia, unspecified; I10 Essential (primary) hypertension; G47.33 Obstructive sleep apnea (adult) (pediatric); Z86.73 Personal history of transient ischemic attack (TIA), and cerebral infarction without residual deficits; F17.210 Nicotine dependence, cigarettes, uncomplicated; F17.290 Nicotine dependence, other tobacco product, uncomplicated
CPT/HCPCS: 36415; 71046; 74177; 80053; 81001; 82010; 83605; 83735; 85025; 85610; 85730; 86140; 87040; 96361; 96374; 96375; 99284; J1200; J1630; J2270; J2405; J7030; J7120; Q9967

== ENCOUNTER 2024-09-15 17:21 | Outpatient (CLI) | payer OTHER, MEDICAID, SELFPAY ==
[2024-09-15 18:19] LABS: Basophils Absolute Auto 0.1 K/mm3 (0.0-0.1); Basophils Percent Auto 0.3 % (0.2-1.2); Eosinophils Absolute Auto 0.1 K/mm3 (0-0.3); Eosinophils Percent Auto 0.5 % (0-4.4); Hematocrit 47.6 % (37.0-47.0); Hemoglobin 15.6 g/dL (12.0-15.0); Immature Granulocyte Absolute 0.12 K/mm3 (0.00-0.031); Immature Granulocyte Percent A 0.7 % (0-0.5); Lymphocytes Absolute Auto 3.64 K/mm3 (0.9-3.2); Mean Corpuscular HGB Conc 32.8 g/dl (32-36); Mean Corpuscular Hemoglobin 29.3 pg (26-34); Mean Corpuscular Volume 89.5 fl (80-100); Mean Platelet Volume 10.2 fl (7.4-10.4); Monocytes Absolute Auto 1.4 K/mm3 (0.1-0.6); Monocytes Percent Auto 7.7 % (2.6-8.5); Neutrophils Absolute Auto 12.9 K/mm3 (1.3-6.7); Neutrophils Percent Auto 70.8 % (45.5-73.1); Platelet Count Result 327 k/mm3 (150-375); Red Blood Count 5.32 M/mm3 (4.2-5.4); Red Cell Distribution Width 14.2 % (11.5-14.5); White Blood Count 18.2 K/mm3 (4.5-10.0)
[2024-09-15 18:23] LABS: Alanine Aminotransferase 37 U/L (6-35); Albumin Level 4.4 g/dL (3.5-5.1); Alkaline Phosphatase 60 U/L (38-126); Anion Gap 11 mmol/L (4-12); Aspartate Amino Transferase 35 U/L (14-36); Bilirubin,Total 0.6 mg/dL (0.2-1.3); Blood Urea Nitrogen 12 mg/dL (7-17); CRP < 0.5 mg/dL (<1.0); Calcium 9.8 mg/dL (8.4-10.2); Carbon Dioxide 26 mmol/L (22-30); Chloride 100 mmol/L (98-107); Estimated Glomerular Filt Rate > 60; Glucose 154 mg/dL (65-110); Potassium 4.2 mmol/L (3.4-5.0); Sodium 137 mmol/L (137-145)
[2024-09-15 18:35] LABS: Iron 64 ug/dL (37-170)
[2024-09-15 18:44] LABS: Erythrocyte Sedimentation Rate 3 mm/hr (0-20); Percent Iron Saturation 18 % (20-50)
== END 2024-09-15 17:22 | disposition home or self-care (01) ==
LOC: ANHLAB 17:23
PROVIDERS: PCP Family Medicine; Visit Provider Student in an Organized Health Care Education/Training Program
DX: R10.9 Unspecified abdominal pain (principal); K52.9 Noninfective gastroenteritis and colitis, unspecified; R11.0 Nausea; R53.83 Other fatigue
CPT/HCPCS: 36415; 80053; 82728; 83540; 83550; 85025; 85652; 86038; 86140; 87040

== ENCOUNTER 2024-09-16 13:49 | Outpatient (NON) | payer OTHER, MEDICAID, SELFPAY ==
[2024-09-22 19:33] LABS: Calprotectin, Stool 464 mcg/g
== END 2024-09-16 13:50 | disposition home or self-care (01) ==
LOC: ANHLAB 13:50
PROVIDERS: PCP Family Medicine; Visit Provider Student in an Organized Health Care Education/Training Program
DX: K52.9 Noninfective gastroenteritis and colitis, unspecified (principal); R53.83 Other fatigue
CPT/HCPCS: 83993

== ENCOUNTER 2024-09-20 16:11 | Outpatient (CLI) | payer OTHER, MEDICAID, SELFPAY ==
--- NOTE | ~2024-09-20 | XR_ITS ---
XR abdomen/kub 1V Ordering provider: Gogo Trinidad APRN History: . R10.9 - Unspecified abdominal pain . Comparison: None. FINDINGS: BOWEL: Nonobstructive bowel gas pattern. ORGANOMEGALY: None. SIGNIFICANT PATHOLOGIC CALCIFICATIONS: None. OTHER: No free air is seen under the diaphragm. Degenerative the spine. IMPRESSION: NO ACUTE ABDOMINAL FINDINGS. Reviewed, dictated and finalized at location A. ROAD CAR LOADER
[2024-09-20 16:31] LABS: Hematocrit 48.6 % (37.0-47.0); Hemoglobin 15.1 g/dL (12.0-15.0); Mean Corpuscular HGB Conc 31.1 g/dl (32-36); Mean Corpuscular Hemoglobin 28.7 pg (26-34); Mean Corpuscular Volume 92.4 fl (80-100); Mean Platelet Volume 9.8 fl (7.4-10.4); Platelet Count Result 325 k/mm3 (150-375); Red Blood Count 5.26 M/mm3 (4.2-5.4); Red Cell Distribution Width 14.1 % (11.5-14.5); White Blood Count 17.4 K/mm3 (4.5-10.0)
[2024-09-20 16:45] LABS: Alanine Aminotransferase 33 U/L (6-35); Albumin Level 4.2 g/dL (3.5-5.1); Alkaline Phosphatase 53 U/L (38-126); Amylase 78 U/L (30-110); Anion Gap 10 mmol/L (4-12); Aspartate Amino Transferase 26 U/L (14-36); Bilirubin,Total 0.5 mg/dL (0.2-1.3); Blood Urea Nitrogen 14 mg/dL (7-17); CRP < 0.5 mg/dL (<1.0); Calcium 9.2 mg/dL (8.4-10.2); Carbon Dioxide 28 mmol/L (22-30); Chloride 100 mmol/L (98-107); Estimated Glomerular Filt Rate > 60; Glucose 182 mg/dL (65-110); Lipase 215 U/L (23-300); Potassium 4.3 mmol/L (3.4-5.0); Sodium 138 mmol/L (137-145)
[2024-09-20 17:10] LABS: Erythrocyte Sedimentation Rate 1 mm/hr (0-20)
== END 2024-09-20 16:12 | disposition home or self-care (01) ==
LOC: ANHLAB 16:13
PROVIDERS: PCP Family Medicine; Visit Provider Nurse Practitioner
DX: R10.9 Unspecified abdominal pain (principal); R11.0 Nausea; R14.0 Abdominal distension (gaseous)
CPT/HCPCS: 36415; 74018; 80053; 82150; 83690; 85027; 85652; 86140

== ENCOUNTER 2024-09-21 12:08 | Outpatient (CLI) | payer OTHER, MEDICAID, SELFPAY ==
[2024-09-21 12:49] LABS: Alanine Aminotransferase 31 U/L (6-35); Albumin Level 4.1 g/dL (3.5-5.1); Alkaline Phosphatase 57 U/L (38-126); Anion Gap 6 mmol/L (4-12); Aspartate Amino Transferase 27 U/L (14-36); Bilirubin,Total 0.7 mg/dL (0.2-1.3); Blood Urea Nitrogen 13 mg/dL (7-17); Calcium 9.1 mg/dL (8.4-10.2); Carbon Dioxide 29 mmol/L (22-30); Chloride 99 mmol/L (98-107); Cholesterol 131 mg/dL (0-200); Estimated Glomerular Filt Rate > 60; Glucose 221 mg/dL (65-110); HDL Direct 32 mg/dL; Potassium 4.1 mmol/L (3.4-5.0); Sodium 134 mmol/L (137-145); Triglycerides 217 mg/dL (<150)
[2024-09-21 13:00] LABS: LDL Cholesterol Direct 75 mg/dL
[2024-09-21 13:36] LABS: Free T4 Free Thyroxine 0.98 ng/mL (0.78-2.19); Vitamin D 25 Hydroxy 36.8 ng/mL
[2024-09-21 13:37] LABS: Creatinine Urine 37.8 mg/dL
[2024-09-21 13:42] LABS: MALB Creatinine Ratio 21.4 mg/g (0-30); Microalbumin Urine Random 8.1 mg/L (0-16.7)
[2024-09-21 13:48] LABS: Toxigenic C. Diff NEGATIVE (NEGATIVE)
== END 2024-09-21 12:09 | disposition home or self-care (01) ==
LOC: ANHLAB 12:13
PROVIDERS: PCP Family Medicine; Referring Provider Nurse Practitioner Family; Visit Provider Nurse Practitioner
DX: R10.9 Unspecified abdominal pain (principal); R11.0 Nausea; R14.0 Abdominal distension (gaseous); I10 Essential (primary) hypertension; E11.69 Type 2 diabetes mellitus with other specified complication; E78.5 Hyperlipidemia, unspecified; R79.89 Other specified abnormal findings of blood chemistry; G47.33 Obstructive sleep apnea (adult) (pediatric)
CPT/HCPCS: 36415; 80053; 80061; 82043; 82306; 82607; 82653; 84439; 84443; 87045; 87269; 87427; 87449; 87493

== ENCOUNTER 2024-10-13 15:46 | Outpatient (CLI) | payer OTHER, MEDICAID, SELFPAY ==
[2024-10-13 16:05] LABS: Basophils Absolute Auto 0.1 K/mm3 (0.0-0.1); Basophils Percent Auto 0.3 % (0.2-1.2); Eosinophils Absolute Auto 0.1 K/mm3 (0-0.3); Eosinophils Percent Auto 0.4 % (0-4.4); Hematocrit 51.5 % (37.0-47.0); Hemoglobin 16.5 g/dL (12.0-15.0); Immature Granulocyte Percent A 0.6 % (0-0.5); Lymphocytes Absolute Auto 2.53 K/mm3 (0.9-3.2); Lymphocytes Percent Auto 16.2 % (18.3-44.2); Mean Corpuscular Hemoglobin 29.2 pg (26-34); Mean Platelet Volume 9.9 fl (7.4-10.4); Monocytes Absolute Auto 1.1 K/mm3 (0.1-0.6); Monocytes Percent Auto 6.9 % (2.6-8.5); Neutrophils Absolute Auto 11.8 K/mm3 (1.3-6.7); Neutrophils Percent Auto 75.6 % (45.5-73.1); Platelet Count Result 343 k/mm3 (150-375); Red Blood Count 5.66 M/mm3 (4.2-5.4); Red Cell Distribution Width 14.2 % (11.5-14.5); White Blood Count 15.6 K/mm3 (4.5-10.0)
[2024-10-13 17:03] LABS: Erythrocyte Sedimentation Rate 5 mm/hr (0-20)
[2024-10-13 20:27] LABS: Alanine Aminotransferase 28 U/L (6-35); Albumin Level 4.4 g/dL (3.5-5.1); Alkaline Phosphatase 61 U/L (38-126); Aspartate Amino Transferase 57 U/L (14-36); Blood Urea Nitrogen 9 mg/dL (7-17); Calcium 8.9 mg/dL (8.4-10.2); Carbon Dioxide 30 mmol/L (22-30); Estimated Glomerular Filt Rate > 60; Glucose 160 mg/dL (65-110)
[2024-10-13 21:31] LABS: Anion Gap 7 mmol/L (4-12); Chloride 102 mmol/L (98-107); Potassium 4.2 mmol/L (3.4-5.0); Sodium 139 mmol/L (137-145)
[2024-10-18 09:24] LABS: BCR/abl P190 NOT DETECTED; BCR/abl P210 NOT DETECTED; BCR/abl Source PERIPHERAL
== END 2024-10-13 15:47 | disposition home or self-care (01) ==
LOC: ANHLAB 15:47
PROVIDERS: PCP Family Medicine; Visit Provider Internal Medicine Hematology & Oncology
DX: D72.829 Elevated white blood cell count, unspecified (principal)
CPT/HCPCS: 36415; 80053; 85025; 85652; 86140; 88184

== ENCOUNTER 2024-10-14 08:33 | Outpatient (CLI) | payer OTHER, MEDICAID, SELFPAY ==
--- NOTE | ~2024-10-14 | NM_ITS ---
EXAM: NM gastric emptying study DATE: 10/14/2024 15:25 INDICATION: Eructation. TECHNIQUE: A gastric emptying study was performed using the methodology of Lalo BLACKWOOD, et al. J Nucl Med 2007; 48:568-572. The patient was given a meal consisting of 2 scrambled eggs labeled with 1.012 mCi Tc-99m sulfur colloid, 2 slices of toast, two packages of jam, and approximately 120 mL of water . Simultaneous anterior and posterior 1-min images of the abdomen were obtained with the patient supi ne at multiple time points over a total period of 4 hours. The geometric mean of anterior and posteri or views was determined, and the percentage retention was calculated for each time point. COMPARISON: CT abdomen and pelvis 09/10/2024 FINDINGS: Gastric retention of the radiotracer-labeled meal was 55%, 34%, and 10% at the 1-hour, 2-h our, and 4-hour time points, respectively. With this technique, apparent rapid gastric emptying is calderon ggested by <30% gastric retention at 1 hour. Delayed gastric emptying is defined by gastric retention of >90% at 1 hour, >60% retention at 2 hours, or >10% retention at 4 hours. IMPRESSION: 1. Normal gastric emptying. Reviewed, dictated and finalized at location A. D/OSTOMY CLINICAL NURSE SPECIALIST IMPRESSION: 1. Normal gastric emptying.
== END 2024-10-14 08:34 | disposition home or self-care (01) ==
PROVIDERS: PCP Family Medicine; Visit Provider Nurse Practitioner
DX: S31.109A Unspecified open wound of abdominal wall, unspecified quadrant without penetration into peritoneal cavity, initial encounter (principal); R14.2 Eructation; R14.0 Abdominal distension (gaseous); L08.9 Local infection of the skin and subcutaneous tissue, unspecified; X58.XXXA Exposure to other specified factors, initial encounter
CPT/HCPCS: 78264; A9541

== ENCOUNTER 2024-11-11 13:01 | Outpatient (CLI) | payer OTHER, MEDICAID, SELFPAY ==
--- NOTE | ~2024-11-11 | MR_ITS ---
EXAMINATION: MR pelvis wo/w con DATE: 11/11/2024 14:51 INDICATION: Abdominal distention (gaseous). TECHNIQUE: Magnetic resonance imaging (MRI) of the pelvis was performed without and with 20 mL MultiH ance intravenous contrast. COMPARISON: CT abdomen and pelvis 09/10/2024 FINDINGS: There are no dilated loops of bowel. There are no pathologically enlarged lymph nodes. There is no fr ee intraperitoneal fluid. The uterus and ovaries are unremarkable. IMPRESSION: 1. No etiology for the patient's symptoms. Reviewed, dictated and finalized at location A. SCRAPER
--- NOTE | ~2024-11-11 | MR_ITS ---
EXAMINATION: MR abdomen wo/w con DATE: 11/11/2024 14:51 INDICATION: Abdominal distention (gaseous). TECHNIQUE: Magnetic resonance imaging (MRI) of the abdomen was performed without and with 20 mL Multi Daisy intravenous contrast. COMPARISON: CT abdomen and pelvis 09/10/2024, 03/31/2023 FINDINGS: There is diffuse hepatic steatosis. There is a 7 mm cyst in the liver. The spleen, pancreas, and righ t adrenal gland are normal. There is a 4.7 m mass with fat in left adrenal gland, consistent with a m yelolipoma. There are cysts in the kidneys measuring up to 14 mm on the right. There is mild right pe rinephric scarring. There are no dilated loops of bowel. There are no pathologically enlarged lymph n odes. There is no free intraperitoneal fluid. IMPRESSION: 1. Diffuse hepatic steatosis. Reviewed, dictated and finalized at location A. RACTIVE MEDIA PROJECT MANAGER
== END 2024-11-11 13:02 | disposition home or self-care (01) ==
PROVIDERS: PCP Family Medicine; Visit Provider Nurse Practitioner
DX: K76.0 Fatty (change of) liver, not elsewhere classified (principal); R14.0 Abdominal distension (gaseous); D72.829 Elevated white blood cell count, unspecified
CPT/HCPCS: 72197; 74183; A9577

== ENCOUNTER 2024-12-08 07:42 | Outpatient (RCR) | payer OTHER, MEDICAID, SELFPAY ==
[2024-12-08 08:25] LABS: Basophils Absolute Auto 0.1 K/mm3 (0.0-0.1); Basophils Percent Auto 0.3 % (0.2-1.2); Eosinophils Absolute Auto 0.1 K/mm3 (0-0.3); Eosinophils Percent Auto 0.5 % (0-4.4); Hemoglobin 16.9 g/dL (12.0-15.0); Immature Granulocyte Absolute 0.13 K/mm3 (0.00-0.031); Immature Granulocyte Percent A 0.8 % (0-0.5); Lymphocytes Absolute Auto 3.04 K/mm3 (0.9-3.2); Lymphocytes Percent Auto 18.5 % (18.3-44.2); Mean Corpuscular HGB Conc 31.9 g/dl (32-36); Mean Corpuscular Hemoglobin 29.3 pg (26-34); Monocytes Absolute Auto 1.2 K/mm3 (0.1-0.6); Monocytes Percent Auto 7.3 % (2.6-8.5); Neutrophils Percent Auto 72.6 % (45.5-73.1); Platelet Count Result 322 k/mm3 (150-375); Red Blood Count 5.76 M/mm3 (4.2-5.4); Red Cell Distribution Width 14.3 % (11.5-14.5); White Blood Count 16.5 K/mm3 (4.5-10.0)
[2024-12-08 08:39] LABS: Anion Gap 12 mmol/L (4-12); Blood Urea Nitrogen 13 mg/dL (7-17); Calcium 9.6 mg/dL (8.4-10.2); Carbon Dioxide 29 mmol/L (22-30); Chloride 99 mmol/L (98-107); Estimated Glomerular Filt Rate > 60; Glucose 168 mg/dL (65-110); Potassium 4.2 mmol/L (3.4-5.0); Sodium 140 mmol/L (137-145)
[2024-12-09 05:49] LABS: DHEA-Sulfate 76 mcg/dL (15-205)
== END 2025-03-08 23:59 | disposition home or self-care (01) ==
LOC: ANHLAB 07:42
PROVIDERS: PCP Family Medicine; Visit Provider Family Medicine
DX: E27.8 Other specified disorders of adrenal gland (principal)
CPT/HCPCS: 36415; 80048; 82627; 85025

== ENCOUNTER 2024-12-09 07:38 | Outpatient (CLI) | payer OTHER, MEDICAID, SELFPAY ==
--- NOTE | ~2024-12-09 | XR_ITS ---
EXAMINATION: XR shoulder RT min 2V DATE: 12/09/2024 08:21 INDICATION: Right shoulder pain TECHNIQUE: AP internally and externally rotated, AP oblique externally rotated and transscapular Y vi ews of the right shoulder were obtained. COMPARISON: None FINDINGS: Normal alignment. No fracture. Mild glenohumeral and acromioclavicular osteoarthritis including shonda inal osteophyte along the posterior rim of the glenoid. Soft tissues are unremarkable. IMPRESSION: Mild right glenohumeral and acromioclavicular osteoarthritis. Reviewed, dictated and finalized at location [facility]
--- OUTSIDE RECORDS SUMMARY | 2024-12-09 07:44 | XMS_ITS ---
Author Organization Unknown Medications Medication Instructions Effective Dates (start - stop) Status empagliflozin 25 MG Oral Tab let [Jardiance] 7742-28-22A36:00:00.000+00 :00 - Completed empagliflozin 25 MG Oral Tab let [Jardiance] 2401-98-36P10:00:00.000+00 :00 - Completed - 7457-18-60E38:00 :00.000+00 :00 - Completed empagliflozin 25 MG Oral Tab let [Jardiance] 2035-77-73E31:00:00.000+00 :00 - Completed - 8726-23-40I59:00 :00.000+00 :00 - Completed empagliflozin 25 MG Oral Tab let [Jardiance] 9598-09-59F38:00:00.000+00 :00 - Completed - 0706-19-55T33:00 :00.000+00 :00 - Completed - 6839-32-87I33:00 :00.000+00 :00 - Completed - 0168-83-74H81:00 :00.000+00 :00 - Completed - 4687-92-62X37:00 :00.000+00 :00 - Completed empagliflozin 25 MG Oral Tab let [Jardiance] 4198-05-78F30:00:00.000+00 :00 - Completed - 4783-15-57U49:00 :00.000+00 :00 - Completed - 1262-99-78R83:00 :00.000+00 :00 - Completed - 7065-65-30Y07:00 :00.000+00 :00 - Completed - 0676-94-82S96:00 :00.000+00 :00 - Completed 3 ML semaglutide 1.34 MG/ML Pen Injector [Ozempic] 1740-97-52F73:00:00.000+00 :00 - Completed 3 ML insulin degludec 200 UN T/ML Pen Injector [Tresiba] 7525-09-48N04:00:00.000+00 :00 - Completed dicyclomine hydrochloride 20 MG Oral Tablet 4181-26-84S49:00:00.000+00 :00 - Completed 3 ML insulin degludec 200 UN T/ML Pen Injector [Tresiba] 8408-39-38S92:00:00.000+00 :00 - Completed - 0872-90-39J95:00 :00.000+00 :00 - Completed 3 ML insulin aspart, human 1 00 UNT/ML Pen Injector [NovoLog] 1704-78-50B12:00:00.000+ 00 :00 - Completed 3 ML insulin degludec 200 UN T/ML Pen Injector [Tresiba] 6785-92-39A74:00:00.000+00 :00 - Completed medroxyprogesterone acetate 10 MG Oral Tablet 8593-51-45E85:00:00.000+00 :00 - Completed 3 ML insulin degludec 200 UN T/ML Pen Injector [Tresiba] 4821-77-76N51:00:00.000+00 :00 - Completed - 1970-86-75F29:00 :00.000+00 :00 - Completed 3 ML insulin degludec 200 UN T/ML Pen Injector [Tresiba] 6737-03-76U05:00:00.000+00 :00 - Completed - 1300-16-53N83:00 :00.000+00 :00 - Completed 3 ML insulin degludec 200 UN T/ML Pen Injector [Tresiba] 8929-23-76E79:00:00.000+00 :00 - Completed 3 ML insulin degludec 200 UN T/ML Pen Injector [Tresiba] 5832-20-89S50:00:00.000+00 :00 - Completed - 9335-53-17V09:00 :00.000+00 :00 - Completed 3 ML semaglutide 1.34 MG/ML Pen Injector [Ozempic] 9746-30-79E23:00:00.000+00 :00 - Completed 3 ML insulin degludec 200 UN T/ML Pen Injector [Tresiba] 4783-86-90J27:00:00.000+00 :00 - Completed - 0361-30-33I03:00 :00.000+00 :00 - Completed 3 ML insulin degludec 200 UN T/ML Pen Injector [Tresiba] 9040-65-43R46:00:00.000+00 :00 - Completed - 4754-05-94Y49:00 :00.000+00 :00 - Completed 3 ML insulin degludec 200 UN T/ML Pen Injector [Tresiba] 3552-05-87S08:00:00.000+00 :00 - Completed dicyclomine hydrochloride 20 MG Oral Tablet 9738-35-77S26:00:00.000+00 :00 - Completed 3 ML insulin aspart, human 1 00 UNT/ML Pen Injector [NovoLog] 3286-70-22V99:00:00.000+ 00 :00 - Completed cholestyramine resin 4000 MG Powder for Oral Suspension 4710-97-23V66:00:00.000+00 :00 - Completed dicyclomine hydrochloride 20 MG Oral Tablet 0197-01-04N94:00:00.000+00 :00 - Completed 3 ML insulin aspart, human 1 00 UNT/ML Pen Injector [NovoLog] 0695-94-65C48:00:00.000+ 00 :00 - Completed 3 ML insulin aspart, human 1 00 UNT/ML Pen Injector [NovoLog] 9197-16-58U39:00:00.000+ 00 :00 - Completed prednisone 10 MG Oral Tablet 01-13-12T:00:00.000+00 :00 - Completed Rimegepant 75 MG Disintegrat ing Oral Tablet [Nurtec] 6715-69-11H35:00:00.000+00 :00 - Completed fluticasone propionate 0.05 MG/ACTUAT Metered Dose Nasal [place] 6373-90-35V07:00:00 .000+00 :00 - Completed Rimegepant 75 MG Disintegrat ing Oral Tablet [Nurtec] 9965-16-43V70:00:00.000+00 :00 - Completed fluconazole 150 MG Oral Tablet 2 095-77-89I94:00:00.000+00 :00 - Completed dicyclomine hydrochloride 20 MG Oral Tablet 2834-27-75H26:00:00.000+00 :00 - Completed Rimegepant 75 MG Disintegrat ing Oral Tablet [[facility]] 6020-04-04M65:00:00.000+00 :00 - Completed fluconazole 150 MG Oral Tablet 2 793-20-17C71:00:00.000+00 :00 - Completed fluconazole 150 MG Oral Tablet 2 172-70-74Q44:00:00.000+00 :00 - Completed fluticasone propionate 0.05 MG/ACTUAT Metered Dose Nasal [place] 9058-48-63D25:00:00 .000+00 :00 - Completed fluconazole 150 MG Oral Tablet 2 816-89-10O75:00:00.000+00 :00 - Completed [facility]gep[facility] ing [facility] 500[facility]-48F11:00:00.000+00 :00 - Completed dicyclomine hydrochloride 20 MG Oral Tablet 7578-02-58S46:00:00.000+00 :00 - Completed Rimegepant 75 MG [facility]at ing [facility] 2732-78-95H15:00:00.000+00 :00 - Completed fluticasone propionate 0.05 MG/ACTUAT Metered Dose Nasal [place] 1951-30-89C71:00:00 .000+00 :00 - Completed Rimegepant 75 MG Disintegrat ing [facility] 1139-38-08Q91:00:00.000+00 :00 - Completed 24 HR metoprolol succinate 5 0 MG Extended Release Oral Tablet 4448-86-55K58:00:00.000+0 0 :00 - Completed 24 HR metoprolol succinate 5 0 MG Extended Release Oral Tablet 0552-87-02C34:00:00.000+0 0 :00 - Completed topiramate 50 MG Oral Tablet 01-12-08:00:00.000+00 :00 - Completed {28 (norethindrone 0.35 MG O ral Tablet) } Pack 1510-38-18C57:00:00.000+00 :00 - Completed 24 HR metoprolol succinate 5 0 MG Extended Release Oral Tablet 5721-50-08L44:00:00.000+0 0 :00 - Completed 24 HR metoprolol succinate 5 0 MG Extended Release Oral Tablet 9608-38-84R06:00:00.000+0 0 :00 - Completed topiramate 50 MG Oral Tablet 202 12-20-17:00:00.000+00 :00 - Completed {28 (norethindrone 0.35 MG O ral Tablet) } Pack 2908-60-10Z66:00:00.000+00 :00 - Completed topiramate 50 MG Oral Tablet 202 01-08-17:00:00.000+00 :00 - Completed topiramate 50 MG Oral Tablet 202 01-14-10:00:00.000+00 :00 - Completed metformin hydrochloride 1000 MG Oral Tablet 7101-06-49Z28:00:00.000+00 :00 - Completed atorvastatin 10 MG Oral Tablet 2 028-61-77W29:00:00.000+00 :00 - Completed atorvastatin 10 MG Oral Tablet 2 380-10-86Y29:00:00.000+00 :00 - Completed atorvastatin 10 MG Oral Tablet 2 591-85-19R62:00:00.000+00 :00 - Completed ondansetron 4 MG Oral Tablet 202 01-14-07:00:00.000+00 :00 - Completed lisinopril 5 MG Oral Tablet 2021:00:00.000+00 :00 - Completed atorvastatin 10 MG Oral Tablet 2 307-54-84X03:00:00.000+00 :00 - Completed {28 (norethindrone 0.35 MG O ral Tablet) } Pack 9074-23-60Z56:00:00.000+00 :00 - Completed ondansetron 4 MG Oral Tablet 202 12-19-12:00:00.000+00 :00 - Completed ondansetron 4 MG Oral Tablet 202 12-20-01:00:00.000+00 :00 - Completed lisinopril 5 MG Oral Tablet 2022:00:00.000+00 :00 - Completed atorvastatin 10 MG Oral Tablet 2 883-54-30N25:00:00.000+00 :00 - Completed metformin hydrochloride 1000 MG Oral Tablet 2359-54-54V34:00:00.000+00 :00 - Completed cephalexin 500 MG Oral Capsule 2 069-67-23J95:00:00.000+00 :00 - Completed ondansetron 4 MG Oral Tablet 202 01-13-20:00:00.000+00 :00 - Completed aripiprazole 20 MG Oral Tablet 2 098-71-03I36:00:00.000+00 :00 - Completed metformin hydrochloride 1000 MG Oral Tablet 7017-23-93X11:00:00.000+00 :00 - Completed metformin hydrochloride 1000 MG Oral Tablet 1338-54-56Z60:00:00.000+00 :00 - Completed lisinopril 5 MG Oral Tablet 2021:00:00.000+00 :00 - Completed lisinopril 5 MG Oral Tablet 2022:00:00.000+00 :00 - Completed {28 (norethindrone 0.35 MG O ral Tablet) } Pack 1556-23-48P82:00:00.000+00 :00 - Completed omeprazole 20 MG Delayed Rel ease Oral Capsule 6971-18-41D30:00:00.000+00 :00 - Completed 12 HR pseudoephedrine hydroc hloride 120 MG Extended Release Oral Tablet 9229-04-27I60:00:0 0.000+00 :00 - Completed ibuprofen 800 MG Oral Tablet 12-19-12:00:00.000+00 :00 - Completed omeprazole 20 MG Delayed Rel ease Oral Capsule 0529-50-59Z34:00:00.000+00 :00 - Completed ibuprofen 800 MG Oral Tablet 01-13-07:00:00.000+00 :00 - Completed - 5454-88-15C83:00 :00.000+00 :00 - Completed letrozole 2.5 MG Oral Tablet 01-13-29:00:00.000+00 :00 - Completed ibuprofen 800 MG Oral Tablet 01-12-11:00:00.000+00 :00 - Completed ibuprofen 800 MG Oral Tablet 202 12-20-09:00:00.000+00 :00 - Completed - 3899-04-65Y82:00 :00.000+00 :00 - Completed ibuprofen 800 MG Oral Tablet 202 12-22-07:00:00.000+00 :00 - Completed ibuprofen 800 MG Oral Tablet 202 01-09-08:00:00.000+00 :00 - Completed - 0495-85-07F00:00 :00.000+00 :00 - Completed ibuprofen 800 MG Oral Tablet 202 12-21-06:00:00.000+00 :00 - Completed omeprazole 20 MG Delayed Rel ease Oral Capsule 7688-11-99U60:00:00.000+00 :00 - Completed ibuprofen 800 MG Oral Tablet 202 01-10-05:00:00.000+00 :00 - Completed ibuprofen 800 MG Oral Tablet 202 01-14-05:00:00.000+00 :00 - Completed ibuprofen 800 MG Oral Tablet 202 01-09-06:00:00.000+00 :00 - Completed omeprazole 20 MG Delayed Rel ease Oral Capsule 4492-30-93F49:00:00.000+00 :00 - Completed - 3884-25-79W59:00 :00.000+00 :00 - Completed - 6410-04-55W92:00 :00.000+00 :00 - Completed ibuprofen 800 MG Oral Tablet 12-18-15:00:00.000+00 :00 - Completed - 5658-77-74I28:00 :00.000+00 :00 - Completed omeprazole 20 MG Delayed Rel ease Oral Capsule 5344-93-97F96:00:00.000+00 :00 - Completed ibuprofen 800 MG Oral Tablet 202 01-11-05:00:00.000+00 :00 - Completed - 0254-67-38E15:00 :00.000+00 :00 - Completed - 3879-22-17W48:00 :00.000+00 :00 - Completed - 0023-67-96H71:00 :00.000+00 :00 - Completed hydroxyzine hydrochloride 25 MG Oral Tablet 1425-65-67K07:00:00.000+00 :00 - Completed aripiprazole 20 MG Oral Tablet 2 696-53-12H44:00:00.000+00 :00 - Completed aripiprazole 20 MG Oral Tablet 2 898-82-56L53:00:00.000+00 :00 - Completed metronidazole 500 MG Oral Tablet 4031-09-28O48:00:00.000+00 :00 - Completed spironolactone 100 MG Oral Tablet 4675-99-18X91:00:00.000+00 :00 - Completed ciprofloxacin 500 MG Oral Tablet 4504-69-51Q10:00:00.000+00 :00 - Completed spironolactone 100 MG Oral Tablet 7762-52-38Y40:00:00.000+00 :00 - Completed metronidazole 500 MG Oral Tablet 7360-47-67K51:00:00.000+00 :00 - Completed ciprofloxacin 500 MG Oral Tablet 2153-36-06W08:00:00.000+00 :00 - Completed hydroxyzine hydrochloride 25 MG Oral Tablet 6796-16-66R92:00:00.000+00 :00 - Completed clotrimazole 20 MG/ML Vaginal Cream 4781-22-15Y04:00:00.000+00 :00 - Completed hydroxyzine hydrochloride 25 MG Oral Tablet 3626-04-59D02:00:00.000+00 :00 - Completed hydroxyzine hydrochloride 25 MG Oral Tablet 2285-81-74U04:00:00.000+00 :00 - Completed spironolactone 100 MG Oral Tablet 2766-88-41Q60:00:00.000+00 :00 - Completed - 6533-34-40G55:00 :00.000+00 :00 - Completed metronidazole 500 MG Oral Tablet 4454-55-15U15:00:00.000+00 :00 - Completed spironolactone 100 MG Oral Tablet 2487-45-81V27:00:00.000+00 :00 - Completed spironolactone 100 MG Oral Tablet 3737-71-21K53:00:00.000+00 :00 - Completed hydroxyzine hydrochloride 25 MG Oral Tablet 4784-06-25A47:00:00.000+00 :00 - Completed - 4731-75-27Y48:00 :00.000+00 :00 - Completed - 8272-77-17R86:00 :00.000+00 :00 - Completed - 8033-04-90Y27:00 :00.000+00 :00 - Completed - 7594-71-86P22:00 :00.000+00 :00 - Completed - 4658-83-01W23:00 :00.000+00 :00 - Completed - 5485-16-52L01:00 :00.000+00 :00 - Completed - 1289-16-50T80:00 :00.000+00 :00 - Completed - 8104-14-98N11:00 :00.000+00 :00 - Completed - 1741-43-17P76:00 :00.000+00 :00 - Completed - 8543-76-68Q74:00 :00.000+00 :00 - Completed - 1361-84-86V84:00 :00.000+00 :00 - Completed - 0169-23-81J50:00 :00.000+00 :00 - Completed - 4073-59-28Z51:00 :00.000+00 :00 - Completed - 9969-93-23Z09:00 :00.000+00 :00 - Completed oxycodone hydrochloride 5 MG Oral Tablet 9682-89-45X23:00:00.000+00 :00 - Completed - 3095-34-71M87:00 :00.000+00 :00 - Completed - 6488-98-76P17:00 :00.000+00 :00 - Completed amoxicillin 875 MG / clavula carmen 125 MG Oral Tablet 8988-95-97Y05:00:00.000+00 :00 - Completed amoxicillin 875 MG / clavula carmen 125 MG Oral Tablet 7343-45-04U37:00:00.000+00 :00 - Completed betamethasone 0.5 MG/ML / clotrimazole 10 MG/ML Topical Cream 8261-52-46X97:00:0 0.000+00 :00 - Completed amoxicillin 875 MG / clavula carmen 125 MG Oral Tablet 9072-75-20S18:00:00.000+00 :00 - Completed betamethasone 0.5 MG/ML / clotrimazole 10 MG/ML Topical Cream 2793-40-54Y60:00:0 0.000+00 :00 - Completed acetaminophen 325 MG / hydro codone bitartrate 5 MG Oral Tablet 3980-41-12H89:00:00.000+00 :00 - Completed amoxicillin 875 MG / clavula carmen 125 MG Oral Tablet 1485-77-09N69:00:00.000+00 :00 - Completed Patient Care team information Name Category Status Period Participants - - Proposed period not known -
== END 2024-12-09 07:39 | disposition home or self-care (01) ==
LOC: ANHIMG 07:39
PROVIDERS: PCP Family Medicine; Visit Provider Student in an Organized Health Care Education/Training Program
DX: M19.011 Primary osteoarthritis, right shoulder (principal)
CPT/HCPCS: 36415; 73030; 82533

== ENCOUNTER 2024-12-31 19:41 | Emergency (ER) | payer MEDICAID, SELFPAY ==
--- OUTSIDE RECORDS SUMMARY | 2024-12-31 19:43 | XMS_ITS ---
Author Organization Unknown Medications Medication Instructions Effective Dates (start - stop) Status empagliflozin 25 MG Oral Tab let [Jardiance] 9850-45-27W55:00:00.000+00 :00 - Completed empagliflozin 25 MG Oral Tab let [Jardiance] 0108-11-55M78:00:00.000+00 :00 - Completed - 6946-89-55E89:00 :00.000+00 :00 - Completed empagliflozin 25 MG Oral Tab let [Jardiance] 8856-20-39C84:00:00.000+00 :00 - Completed - 0245-01-06J68:00 :00.000+00 :00 - Completed empagliflozin 25 MG Oral Tab let [Jardiance] 1953-67-20Z69:00:00.000+00 :00 - Completed - 7593-67-89F89:00 :00.000+00 :00 - Completed - 6696-55-26M44:00 :00.000+00 :00 - Completed - 3618-30-64O63:00 :00.000+00 :00 - Completed - 2118-96-75R85:00 :00.000+00 :00 - Completed empagliflozin 25 MG Oral Tab let [Jardiance] 3171-15-72W60:00:00.000+00 :00 - Completed - 8572-47-00N49:00 :00.000+00 :00 - Completed - 5873-64-47D47:00 :00.000+00 :00 - Completed - 4291-34-61R34:00 :00.000+00 :00 - Completed - 9919-18-55O00:00 :00.000+00 :00 - Completed 3 ML semaglutide 1.34 MG/ML Pen Injector [Ozempic] 0687-79-17X93:00:00.000+00 :00 - Completed 3 ML insulin degludec 200 UN T/ML Pen Injector [Tresiba] 0320-07-66X88:00:00.000+00 :00 - Completed dicyclomine hydrochloride 20 MG Oral Tablet 6911-65-15N68:00:00.000+00 :00 - Completed 3 ML insulin degludec 200 UN T/ML Pen Injector [Tresiba] 4254-54-61Z96:00:00.000+00 :00 - Completed - 0357-22-66S11:00 :00.000+00 :00 - Completed 3 ML insulin aspart, human 1 00 UNT/ML Pen Injector [NovoLog] 5521-73-62J63:00:00.000+ 00 :00 - Completed 3 ML insulin degludec 200 UN T/ML Pen Injector [Tresiba] 2208-62-60L02:00:00.000+00 :00 - Completed medroxyprogesterone acetate 10 MG Oral Tablet 9960-66-31C08:00:00.000+00 :00 - Completed 3 ML insulin degludec 200 UN T/ML Pen Injector [Tresiba] 1866-02-67A43:00:00.000+00 :00 - Completed - 7554-44-16C54:00 :00.000+00 :00 - Completed 3 ML insulin degludec 200 UN T/ML Pen Injector [Tresiba] 9358-23-73I67:00:00.000+00 :00 - Completed - 8853-27-28M71:00 :00.000+00 :00 - Completed 3 ML insulin degludec 200 UN T/ML Pen Injector [Tresiba] 3774-13-98L28:00:00.000+00 :00 - Completed 3 ML insulin degludec 200 UN T/ML Pen Injector [Tresiba] 9521-48-59O72:00:00.000+00 :00 - Completed - 5446-22-78N31:00 :00.000+00 :00 - Completed 3 ML semaglutide 1.34 MG/ML Pen Injector [Ozempic] 6186-64-51F09:00:00.000+00 :00 - Completed 3 ML insulin degludec 200 UN T/ML Pen Injector [Tresiba] 3424-10-68V12:00:00.000+00 :00 - Completed - 1168-92-25T43:00 :00.000+00 :00 - Completed 3 ML insulin degludec 200 UN T/ML Pen Injector [Tresiba] 4292-43-13X47:00:00.000+00 :00 - Completed - 8011-83-29Q13:00 :00.000+00 :00 - Completed 3 ML insulin degludec 200 UN T/ML Pen Injector [Tresiba] 6144-20-75C18:00:00.000+00 :00 - Completed dicyclomine hydrochloride 20 MG Oral Tablet 5122-55-73J66:00:00.000+00 :00 - Completed 3 ML insulin aspart, human 1 00 UNT/ML Pen Injector [NovoLog] 6391-32-82S14:00:00.000+ 00 :00 - Completed cholestyramine resin 4000 MG Powder for Oral Suspension 7156-57-92P55:00:00.000+00 :00 - Completed dicyclomine hydrochloride 20 MG Oral Tablet 9782-61-82N36:00:00.000+00 :00 - Completed 3 ML insulin aspart, human 1 00 UNT/ML Pen Injector [NovoLog] 6699-01-98Y00:00:00.000+ 00 :00 - Completed 3 ML insulin aspart, human 1 00 UNT/ML Pen Injector [NovoLog] 0410-92-41Q47:00:00.000+ 00 :00 - Completed prednisone 10 MG Oral Tablet 01-13-12T:00:00.000+00 :00 - Completed Rimegepant 75 MG Disintegrat ing Oral Tablet [Nurtec] 0385-98-60C92:00:00.000+00 :00 - Completed fluticasone propionate 0.05 MG/ACTUAT Metered Dose Nasal [place] 7951-15-26Q34:00:00 .000+00 :00 - Completed Rimegepant 75 MG Disintegrat ing Oral Tablet [Nurtec] 2006-64-54U13:00:00.000+00 :00 - Completed fluconazole 150 MG Oral Tablet 2 910-83-57V25:00:00.000+00 :00 - Completed dicyclomine hydrochloride 20 MG Oral Tablet 7361-05-75W03:00:00.000+00 :00 - Completed Rimegepant 75 MG Disintegrat ing Oral Tablet [[facility]] 5358-23-83N27:00:00.000+00 :00 - Completed fluconazole 150 MG Oral Tablet 2 029-84-87V02:00:00.000+00 :00 - Completed fluconazole 150 MG Oral Tablet 2 255-45-03V17:00:00.000+00 :00 - Completed fluticasone propionate 0.05 MG/ACTUAT Metered Dose Nasal [place] 0705-56-40A49:00:00 .000+00 :00 - Completed fluconazole 150 MG Oral Tablet 2 355-24-69L65:00:00.000+00 :00 - Completed Rimegepant 75 MG Disintegrat ing [facility] 6522-18-92E33:00:00.000+00 :00 - Completed dicyclomine hydrochloride 20 MG Oral Tablet 3106-50-59I31:00:00.000+00 :00 - Completed Rimegepant 75 MG Disintegrat ing Oral Tablet [facility] 4502-79-77Q39:00:00.000+00 :00 - Completed fluticasone propionate 0.05 MG/ACTUAT Metered Dose Nasal [place] 7690-71-74Q75:00:00 .000+00 :00 - Completed Rimegepant 75 MG Disintegrat ing Oral Tablet [facility] 6099-19-07S62:00:00.000+00 :00 - Completed 24 HR metoprolol succinate 5 0 MG Extended Release Oral Tablet 4226-98-10O08:00:00.000+0 0 :00 - Completed 24 HR metoprolol succinate 5 0 MG Extended Release Oral Tablet 8326-06-94S96:00:00.000+0 0 :00 - Completed topiramate 50 MG Oral Tablet 01-12-08:00:00.000+00 :00 - Completed {28 (norethindrone 0.35 MG O ral Tablet) } Pack 2695-54-50S58:00:00.000+00 :00 - Completed 24 HR metoprolol succinate 5 0 MG Extended Release Oral Tablet 1773-68-65Y51:00:00.000+0 0 :00 - Completed 24 HR metoprolol succinate 5 0 MG Extended Release Oral Tablet 2944-58-70O83:00:00.000+0 0 :00 - Completed topiramate 50 MG Oral Tablet 202 12-20-17:00:00.000+00 :00 - Completed {28 (norethindrone 0.35 MG O ral Tablet) } Pack 7244-66-68C92:00:00.000+00 :00 - Completed topiramate 50 MG Oral Tablet 202 01-08-17:00:00.000+00 :00 - Completed topiramate 50 MG Oral Tablet 202 01-14-10:00:00.000+00 :00 - Completed metformin hydrochloride 1000 MG Oral Tablet 3863-23-14C39:00:00.000+00 :00 - Completed atorvastatin 10 MG Oral Tablet 2 900-08-72E97:00:00.000+00 :00 - Completed atorvastatin 10 MG Oral Tablet 2 326-99-98Z67:00:00.000+00 :00 - Completed atorvastatin 10 MG Oral Tablet 2 839-93-53X77:00:00.000+00 :00 - Completed ondansetron 4 MG Oral Tablet 202 01-14-07:00:00.000+00 :00 - Completed lisinopril 5 MG Oral Tablet 2021:00:00.000+00 :00 - Completed atorvastatin 10 MG Oral Tablet 2 237-67-83B16:00:00.000+00 :00 - Completed {28 (norethindrone 0.35 MG O ral Tablet) } Pack 0561-65-31I35:00:00.000+00 :00 - Completed ondansetron 4 MG Oral Tablet 202 12-19-12:00:00.000+00 :00 - Completed ondansetron 4 MG Oral Tablet 202 12-20-01:00:00.000+00 :00 - Completed lisinopril 5 MG Oral Tablet 2022:00:00.000+00 :00 - Completed atorvastatin 10 MG Oral Tablet 2 225-36-11T30:00:00.000+00 :00 - Completed metformin hydrochloride 1000 MG Oral Tablet 1324-11-44C06:00:00.000+00 :00 - Completed cephalexin 500 MG Oral Capsule 2 699-42-69W51:00:00.000+00 :00 - Completed ondansetron 4 MG Oral Tablet 202 01-13-20:00:00.000+00 :00 - Completed aripiprazole 20 MG Oral Tablet 2 869-29-78H25:00:00.000+00 :00 - Completed metformin hydrochloride 1000 MG Oral Tablet 6811-39-76T97:00:00.000+00 :00 - Completed metformin hydrochloride 1000 MG Oral Tablet 2195-36-41Q54:00:00.000+00 :00 - Completed lisinopril 5 MG Oral Tablet 2021:00:00.000+00 :00 - Completed lisinopril 5 MG Oral Tablet 2022:00:00.000+00 :00 - Completed {28 (norethindrone 0.35 MG O ral Tablet) } Pack 4257-78-28G01:00:00.000+00 :00 - Completed omeprazole 20 MG Delayed Rel ease Oral Capsule 9988-08-10W90:00:00.000+00 :00 - Completed 12 HR pseudoephedrine hydroc hloride 120 MG Extended Release Oral Tablet 0885-64-91W18:00:0 0.000+00 :00 - Completed ibuprofen 800 MG Oral Tablet 12-19-12:00:00.000+00 :00 - Completed omeprazole 20 MG Delayed Rel ease Oral Capsule 3305-12-65Q44:00:00.000+00 :00 - Completed ibuprofen 800 MG Oral Tablet 01-13-07:00:00.000+00 :00 - Completed - 1955-21-30Z19:00 :00.000+00 :00 - Completed letrozole 2.5 MG Oral Tablet 01-13-29:00:00.000+00 :00 - Completed ibuprofen 800 MG Oral Tablet 01-12-11:00:00.000+00 :00 - Completed ibuprofen 800 MG Oral Tablet 202 12-20-09:00:00.000+00 :00 - Completed - 8684-45-99Q04:00 :00.000+00 :00 - Completed ibuprofen 800 MG Oral Tablet 202 12-22-07:00:00.000+00 :00 - Completed ibuprofen 800 MG Oral Tablet 202 01-09-08:00:00.000+00 :00 - Completed - 1000-65-19I09:00 :00.000+00 :00 - Completed ibuprofen 800 MG Oral Tablet 202 12-21-06:00:00.000+00 :00 - Completed omeprazole 20 MG Delayed Rel ease Oral Capsule 1779-47-05F18:00:00.000+00 :00 - Completed ibuprofen 800 MG Oral Tablet 202 01-10-05:00:00.000+00 :00 - Completed ibuprofen 800 MG Oral Tablet 202 01-14-05:00:00.000+00 :00 - Completed ibuprofen 800 MG Oral Tablet 202 01-09-06:00:00.000+00 :00 - Completed omeprazole 20 MG Delayed Rel ease Oral Capsule 0971-80-00J54:00:00.000+00 :00 - Completed - 0187-17-87Z06:00 :00.000+00 :00 - Completed - 4099-41-26T66:00 :00.000+00 :00 - Completed ibuprofen 800 MG Oral Tablet 12-18-15:00:00.000+00 :00 - Completed - 0805-71-10N44:00 :00.000+00 :00 - Completed omeprazole 20 MG Delayed Rel ease Oral Capsule 5670-31-16Y11:00:00.000+00 :00 - Completed ibuprofen 800 MG Oral Tablet 202 01-11-05:00:00.000+00 :00 - Completed - 2588-63-08I79:00 :00.000+00 :00 - Completed - 8656-91-10V09:00 :00.000+00 :00 - Completed - 4271-98-70B20:00 :00.000+00 :00 - Completed hydroxyzine hydrochloride 25 MG Oral Tablet 0661-23-55D79:00:00.000+00 :00 - Completed aripiprazole 20 MG Oral Tablet 2 507-24-75Q69:00:00.000+00 :00 - Completed aripiprazole 20 MG Oral Tablet 2 114-26-22I19:00:00.000+00 :00 - Completed metronidazole 500 MG Oral Tablet 0067-36-35G45:00:00.000+00 :00 - Completed spironolactone 100 MG Oral Tablet 3720-56-11P05:00:00.000+00 :00 - Completed ciprofloxacin 500 MG Oral Tablet 6166-48-33I11:00:00.000+00 :00 - Completed spironolactone 100 MG Oral Tablet 3969-44-55U50:00:00.000+00 :00 - Completed metronidazole 500 MG Oral Tablet 7980-31-00P79:00:00.000+00 :00 - Completed ciprofloxacin 500 MG Oral Tablet 2818-53-71J39:00:00.000+00 :00 - Completed hydroxyzine hydrochloride 25 MG Oral Tablet 0919-05-11S37:00:00.000+00 :00 - Completed clotrimazole 20 MG/ML Vaginal Cream 8733-98-88H38:00:00.000+00 :00 - Completed hydroxyzine hydrochloride 25 MG Oral Tablet 8665-89-53H83:00:00.000+00 :00 - Completed hydroxyzine hydrochloride 25 MG Oral Tablet 0358-88-02L63:00:00.000+00 :00 - Completed spironolactone 100 MG Oral Tablet 2810-91-91Q35:00:00.000+00 :00 - Completed - 6833-53-70G18:00 :00.000+00 :00 - Completed metronidazole 500 MG Oral Tablet 2033-98-72I20:00:00.000+00 :00 - Completed spironolactone 100 MG Oral Tablet 2548-21-50M24:00:00.000+00 :00 - Completed spironolactone 100 MG Oral Tablet 7611-82-35G05:00:00.000+00 :00 - Completed hydroxyzine hydrochloride 25 MG Oral Tablet 1481-43-95N55:00:00.000+00 :00 - Completed - 8020-28-39H40:00 :00.000+00 :00 - Completed - 4786-63-46D34:00 :00.000+00 :00 - Completed - 0727-37-69C03:00 :00.000+00 :00 - Completed - 1207-95-25X73:00 :00.000+00 :00 - Completed - 2583-15-20N74:00 :00.000+00 :00 - Completed - 8046-34-95I28:00 :00.000+00 :00 - Completed - 2199-82-73K69:00 :00.000+00 :00 - Completed - 5403-91-95X76:00 :00.000+00 :00 - Completed - 8842-09-35K44:00 :00.000+00 :00 - Completed - 1273-86-45A65:00 :00.000+00 :00 - Completed - 4130-97-75E70:00 :00.000+00 :00 - Completed - 5179-04-71F96:00 :00.000+00 :00 - Completed - 9989-06-84I74:00 :00.000+00 :00 - Completed - 6964-16-88Q60:00 :00.000+00 :00 - Completed oxycodone hydrochloride 5 MG Oral Tablet 0007-90-52A68:00:00.000+00 :00 - Completed - 6965-06-93T59:00 :00.000+00 :00 - Completed - 0723-07-64E15:00 :00.000+00 :00 - Completed amoxicillin 875 MG / clavula carmen 125 MG Oral Tablet 4580-76-93M10:00:00.000+00 :00 - Completed amoxicillin 875 MG / clavula carmen 125 MG Oral Tablet 7815-41-80C13:00:00.000+00 :00 - Completed betamethasone 0.5 MG/ML / clotrimazole 10 MG/ML Topical Cream 7645-48-80A35:00:0 0.000+00 :00 - Completed amoxicillin 875 MG / clavula carmen 125 MG Oral Tablet 5674-49-10L32:00:00.000+00 :00 - Completed betamethasone 0.5 MG/ML / clotrimazole 10 MG/ML Topical Cream 3118-34-01H31:00:0 0.000+00 :00 - Completed acetaminophen 325 MG / hydro codone bitartrate 5 MG Oral Tablet 2385-17-73V38:00:00.000+00 :00 - Completed amoxicillin 875 MG / clavula carmen 125 MG Oral Tablet 6482-77-90V59:00:00.000+00 :00 - Completed Patient Care team information Name Category Status Period Participants - - Proposed period not known -
--- OUTSIDE RECORDS SUMMARY | 2024-12-31 19:43 | XMS_ITS | Referral Summary ---
Author Organization [facility] Address [address] [place] [address] Care Team Providers Care Joinery Machinist Name Role Phone Dana Roy MD Primary Care Provider [phone] Allergies Active Allergy Reactions Criticality Noted Date Comments Clindamycin Hives Medium 10/01/2018 Sulfa (Sulfonamide Antibiotics) Medications metoprolol XL (TOPROL-XL) 50 mg 24 hr tablet Take 1 tablet (50 mg total) by mouth nightly Active ondansetron ODT (ZOFRAN-ODT) 4 mg disintegrating tablet Take 1 tablet (4 mg total) by mouth every 8 (eight) hours as needed for nausea or vomiting Active vit-iron bisgly-FA (NESTABS) 32-1,000 mg-mcg tablet Take 1 tablet by mouth daily Active atorvastatin (LIPITOR) 10 mg tablet Take 1 tablet (10 mg total) by mouth nightly Active metFORMIN (GLUCOPHAGE) 1,000 mg tablet Take 1 tablet (1,000 mg total) by mouth 2 (two) times a day with meals Active topiramate (TOPAMAX) 50 mg tablet Take 1 tablet (50 mg total) by mouth 2 (two) times a day Pt takes 1 tab in the am and 2 tabs in the pm Active empagliflozin (JARDIANCE) 25 mg tabletIndications:t ype 2 diabetes mellitus 1 tablet (25 mg total) daily Active NON FORMULARY, FOR INPATIENT USE,Indications:giacomo domingo Take 100 mg by mouth daily as needed Pt takes Ubrelvy. Takes 1 at onset, may repeat, no more than 2. Active ibuprofen (ADVIL,MOTRIN) 800 mg tablet Take 1 tablet (800 mg total) by mouth every 8 (eight) hours as needed for pain Active hydrOXYzine (ATARAX) 25 mg tablet Take 1 tablet (25 mg total) by mouth 3 (three) times a day as needed Active omeprazole (PriLOSEC) 20 mg capsule Take 1 capsule (20 mg total) by mouth daily Active ARIPiprazole (ABILIFY) 20 mg tablet Take 1 tablet (20 mg total) by mouth nightly Active spironolactone (ALDACTONE) 100 mg tablet Take 1 tablet (100 mg total) by mouth daily Active desvenlafaxine ER (PRISTIQ) 100 mg 24 hr tablet Take 1 tablet (100 mg total) by mouth daily Active tirzepatide (MOUNJARO SUBQ) Inject 5 mg under the skin once a week Friday Active Active Problems Problem Noted Date Diagnosed Date Morbid obesity with BMI of 50.0-59.9, adult 10/10 Insulin dependent type 2 diabetes mellitus (CMS/ HCC) 10/21/2023 Ileus (CMS/FORMER[facility]) 10/20/2023 Moderate malnutrition 03/01/2022 Abdominal pain 02/26/2022 Adiposity 01/05/2015 Overview (02/13/2017): Obesity Immunizations Immunization Administration Dates Next Due Influenza, Unspecified 10/15/2023 Social History Tobacco Use Types Packs/Day Years Used Date Smoking Tobacco: Never Tobacco Cessation:Counseling Given: Not Answered Alcohol Use Standard Drinks/Week Comments No 0 (1 standard drink = 0.6 oz pur e alcohol) AUDIT-C Answer Date Recorded Q1: How often do you have a drink containing alc ohol? Never 10/20/2023 Average Number of Drinks Not on file 023 Frequency of Binge Drinking Not on file 10/10 Personal Safety Answer Date Recorded Have you ever been in or are you currently in a harmful physical or emotional relationship or is someone making you feel afraid or unsafe? Denies 10/20/2023 Comments No Sex and Gender Information Value Date Recorded Sex Assigned at Not on file Legal Sex Female 5:42 PM DESIGN INTERN Gender Identity Not on file Sexual Orientation Not on file Last Filed Vital Signs Vital Sign Reading Time Taken Comments Blood Pressure 115/70 10/21/2023 3:03 PM DESIGN INTERN Pulse 93 10/21/2023 3:03 PM DESIGN INTERN Temperature 36.1 C (97 F) 10/21/2023 3:03 PM DESIGN INTERN Respiratory Rate 18 10/21/2023 3:03 PM DESIGN INTERN Oxygen Saturation 95% 10/21/2023 3:03 PM DESIGN INTERN Inhaled Oxygen Concentration - - Weight 150.1 kg (331 lb) 10/20/2023 3:20 AM DESIGN INTERN Height 167.6 cm (5' 6 ) 10/20/2023 3:20 AM DESIGN INTERN Body Mass Index 53.42 10/20/2023 3:20 AM DESIGN INTERN Plan of Treatment Not on file Medical Devices Implanted Type Area Event Set Up Specialist Device Identifier Shelf Expiration Date Model / Serial / Lot [employer] [place] [employer]etta 192-123 Polaris Ultra Nautilus 5fr 2.1fr 26cm 2 Durometer Taper Tip Low Latex Free - [id number] Implanted:Qty: 1 on 10/01/2018 by Jaden Olivera MD at [facility] Stent Right: Ureter [employer] 06/14/2021 192-123 / / [id number] Procedures Procedure Name Priority Date/Time Associated Diagnosis Comments EGFR Routine 10/20/2023 6:35 AM DESIGN INTERN from Last 3 Months or Most Recently Relevant to Health Maintenance Results * eGFR (10/20/2023 6:35 AM DESIGN INTERN) eGFR 79 mL/min/1. 73 m2 EDWINA FROST (JOSE MIGUEL) Comment: Interpretive Data Reference Interval Normal >/= 90 mL/min/1.73m2 Mildly decreased* 60 - 89 mL/min/1.73m2 Mildly to moderately decreased 45 - 59 mL/min/1.73m2 Moderately to severely decreased 30 - 44 mL/min/1.73m2 Severely decreased 15 - 29 mL/min/1.73m2 Kidney Failure < 15 mL/min/1.73m2 *Relative to young adult level Estimated glomerular filtration rate is determined by the 2020 CKD-EPI equation recommended by the National Kidney Foundation (A Unifying Approach to GFR Estimation: Recommendations of the NKF-ASK Task Force on Reassessing the Inclusion of Race in Diagnosing Kidney Disease, JASN 2020). The CKD-EPI equation should not be used for patients with unstable renal function and has not been validated in children and those over 70. Current interpretive data was last reviewed 2021. Blood 10/20/2023 6:35 AM DESIGN INTERN 10/20/2023 6:37 AM DESIGN INTERN Cece Solorio MD LAB BLOOD ORDERABLES Fin al Result [facility] [address] [facility] Department [place] [address] from Last 3 Months or Most Recently Relevant to Health Maintenance Insurance [facility] [place] [address] [facility] PPO [facility] HMO/PPO Address: [facility] [id number] [place] [address] [place] [address] [facility] HMO Advance Directives For more information, please contact: [phone] * Full Code (Latest Code Status on File) Date Activated Date Inactivated Comments 10/20/2023 3:21 AM 10/21/2023 10:45 PM * Full Code Date Activated Date Inactivated Comments 02/26/2022 8:54 PM 03/01/2022 5:15 PM * Full Code Date Activated Date Inactivated Comments 10/01/2018 3:53 AM 10/01/2018 7:17 PM Care Teams Joinery Machinist Relationship Specialty Start Date End Date Dana Roy MD PCP - General Family Medicine 10/19/23
--- OUTSIDE RECORDS SUMMARY | 2024-12-31 19:43 | XMS_ITS | Clinical Summary ---
Author Organization [facility] Address [address] [place] [address] Care Team Providers Care Marketing Specialist Name Role Phone Dana Roy MD Primary Care Provider [phone] Allergies Active Allergy Reactions Criticality Noted Date [...] 2 diabetes mellitus (CMS/ HCC) 10/21/2023 Ileus (CMS/HCC) 10/20/2023 Moderate malnutrition 03/01/2022 Abdominal pain 02/26/2022 Adiposity 01/05/2015 Overview (02/13/2017): Obesity Immunizations Immunization Administration Dates Next Due Influenza, Unspecified 10/15/2023 Surgical History Surgery Date Site/Laterality Comments CHOLECYSTECTOMY Cholecystectomy OTHER SURGICAL HISTORY 2014 Left 15 cm serous cystadenoma and pain: Laparotomy with ovarian cystectomy & salpingectomy Medical History Medical History Date Comments Infection of wound due to oh thicillin resistant Staphylococcus aureus (MRSA) 01/2015 Obesity Migraines Sleep apnea DM2 (diabetes mellitus, type 2) (HCC) HTN (hypertension) PCOS (polycystic ovarian syndrome) Arthritis Family History Medical History Relation Name Comments Diabetes Brother Diabetes mellit us; Diabetes Father Diabetes mellit us; Hyperlipidemia Father High choleste rol; Hypertension Father Hypertension; Heart disease Maternal Grandmother Cardio vascular disease; Heart disease Paternal Grandmother Cardio vascular disease; Relation Name Status Comments Brother Father Maternal Grandmother Paternal Grandmother Social History Tobacco Use Types Packs/Day Years [...] on file Legal Sex Female 5:42 PM PRESSROOM FOREMAN Gender Identity Not on file Sexual Orientation Not on file Obstetrics History Last Filed Vital Signs Vital Sign Reading Time Taken Comments Blood Pressure 115/70 10/21/2023 3:03 PM PRESSROOM FOREMAN Pulse 93 10/21/2023 3:03 PM PRESSROOM FOREMAN Temperature 36.1 C (97 F) 10/21/2023 3:03 PM PRESSROOM FOREMAN Respiratory Rate 18 10/21/2023 3:03 PM PRESSROOM FOREMAN Oxygen Saturation 95% 10/21/2023 3:03 PM PRESSROOM FOREMAN Inhaled Oxygen Concentration - - Weight 150.1 kg (331 lb) 10/20/2023 3:20 AM PRESSROOM FOREMAN Height 167.6 cm (5' 6 ) 10/20/2023 3:20 AM PRESSROOM FOREMAN Body Mass Index 53.42 10/20/2023 3:20 AM PRESSROOM FOREMAN Plan of Treatment Health Maintenance Due Date Last Done Comments Albumin Creatinine Ratio, Urine 1983 Breast Cancer Screening-Mammogram 1983 Cervical Cancer Screening 1983 Depression Screening 1983 Hemoglobin A1C 1983 Hepatitis C Screening 1983 Dilated Eye Exam 1983 Foot Exam 1983 Lipid Panel 1983 Varicella Vaccines (1 of 2 - 13+ 2-dose series) 1996 Hepatitis B Screening 2001 Regular Well Visit/Exam 18-64 2001 Pneumococcal vaccine <65 (1 of 2 - PCV) 2002 DTaP/Tdap/Td Vaccine (1 - Tdap) 10/12/2013 10/11/2013 Covid-19 Vaccine (3 - season) 2024 07/07/2021, 06/16/2021 Influenza Vaccine (#1) 2024 3, 07/21/2018, 07/31/2017, Additional history exists eGFR 10/20/2024 10/20/2023, 10/10, 03/01/2022, Additional history exists HPV Vaccines Aged Out No longer eligi ble based on patient's age to complete this topic Medical Devices Implanted Type Area Loft Worker Device Identifier Shelf Expiration Date Model / Serial / Lot [employer] Concetta 192-123 Polaris Ultra Nautilus 5fr 2.1fr 26cm 2 Durometer Taper Tip Low Latex Free - [id number] Implanted:Qty: 1 on 10/01/2018 by Jaden Olivera MD at [facility] Stent Right: Ureter [place] [employer] 06/14/2021 192-123 / / [id number] Procedures Procedure Name Priority Date/Time Associated Diagnosis Comments EGFR Routine 10/20/2023 6:35 AM PRESSROOM FOREMAN from Last 3 Months or Most Recently Relevant to Health Maintenance Results * eGFR (10/20/2023 6:35 AM PRESSROOM FOREMAN) eGFR 79 mL/min/1. 73 m2 EDWINA FROST [...] last reviewed 2021. Blood 10/20/2023 6:35 AM PRESSROOM FOREMAN 10/20/2023 6:37 AM PRESSROOM FOREMAN us Cece Solorio MD LAB BLOOD ORDERABLES Fin al Result [facility] [place] [facility] [place] [address] from Last 3 Months or Most Recently Relevant to Health Maintenance Insurance [facility] IDPA [facility] Advance Directives For more information, please contact: [phone] * Full Code (Latest Code Status on File) Date Activated Date Inactivated Comments 10/20/2023 3:21 AM 10/21/2023 10:45 PM * Full Code Date Activated Date Inactivated Comments 02/26/2022 8:54 PM 03/01/2022 5:15 PM * Full Code Date Activated Date Inactivated Comments 10/01/2018 3:53 AM 10/01/2018 7:17 PM Care Teams Marketing Specialist Relationship Specialty Start Date End Date Dana Roy MD PCP - General Family Medicine 10/19/23
--- OUTSIDE RECORDS SUMMARY | 2024-12-31 19:43 | XMS_ITS | Clinical Summary ---
Author Organization [facility] Address [address] [place] [address] Phone Care Team Providers Care Tool Room Lathe Operator Name Role Phone Dana Roy MD Primary Care Provider [phone] Allergies Active Allergy Reactions Criticality Noted Date Comments Clindamycin Hives 12/22/2017 Sulfa Antibiotics Hives 2015 Medications metFORMIN (GLUCOPHAGE) 500 MG Tablet Take 850 mg by mouth 2 times daily (with meals). Active Meloxicam (MOBIC) 15 MG Tablet Take 15 mg by mouth daily. Active metoprolol tartrate (LOPRESSOR) 50 MG Tablet Take 50 mg by mouth daily. Active Butalbital-APAP- Caffeine (FIORICET PO) Take by mouth. A ctive Vit-Fe Fumarate-FA ( VITAMIN PO) Take by mouth daily. Active HYDROcodone-acet aminophen (NORCO) 5-325 MG Tablet TK 1 TO 2 TS PO Q 6 H PRF PAIN 0 7 Active ondansetron (ZOFRAN-ODT) 4 MG TABLET DISPERSIBLE TK 1 T PO Q 6 H PRF NAUSEA 0 7 Active tamsulosin (FLOMAX) 0.4 MG Capsule TK 1 C PO QD AT BEDTIME FOR EXPULSION OF KIDNEY STONES 0 7 Active tamsulosin (FLOMAX) 0.4 MG CapsuleIndicatio ns:Kidney stone Take 1 Cap by mouth 2 times daily. 20 Cap 0 7 Active traMADol (ULTRAM) 50 MG Tablet Take 1 Tab by mouth every 6 hours as needed for Pain. 15 Tab 8 Active topiramate (TOPAMAX) 100 MG Tablet Take 100 mg by mouth 2 times daily. Active NORETHIN-ETH ESTRAD TRIPHASIC PO Take by mouth. Activ e Active Problems Problem Noted Date Diagnosed Date Nephrolithiasis 01/31/2017 Social History Tobacco Use Types Packs/Day Years Used Date Smoking Tobacco: Former Smokeless Tobacco: Never Tobacco Cessation:Counseling Given: No Alcohol Use Standard Drinks/Week Comments No 0 (1 standard drink = 0.6 oz pur e alcohol) Sexually Active Control Partners Comments Yes Male Comments No Sex and Gender Information Value Date Recorded Sex Assigned at Not on file Legal Sex Female 9:46 PM CDT Gender Identity Not on file Sexual Orientation Not on file Last Filed Vital Signs Vital Sign Reading Time Taken Comments Blood Pressure 151/88 07/23/2022 7:14 PM CDT Pulse 101 07/23/2022 7:14 PM CDT Temperature 37 C (98.6 F) 07/23/2022 7:14 PM CDT Respiratory Rate 20 07/23/2022 7:14 PM CDT Oxygen Saturation 98% 07/23/2022 7:14 PM CDT Inhaled Oxygen Concentration - - Weight 164.7 kg (363 lb) 07/23/2022 7:14 PM CDT Height 170.2 cm (5' 7 ) 07/23/2022 7:14 PM CDT Body Mass Index 56.85 07/23/2022 7:14 PM CDT Plan of Treatment Health Maintenance Due Date Last Done Comments Hepatitis C Virus (HCV) Screening 1983 TdaP Immunization 1983 Hepatitis B Immunization (1 of 3 - 19+ 3-dose series) 2002 Pap Smear 2004 Cervical Cancer Screening (CCS) 2013 HPV/Cotest 2013 Discussion re Starting/Frequency of Mammograms 2023 Influenza Immunization (#1) 07/11/202407/11, 07/31/2017, 08/01/2016 SARS-COV-2 Immunization ( season) 2024 07/07/2021, 06/16/2021 Respiratory Syncytial Virus (RSV) Immunization (Adult) (1 - 1-dose 75+ series) 2058 DTaP/Tdap/Td Immunization Discontinued 10/11/2013 Meningococcal Immunization (ACWY) Aged Out No longer eligible based on patient's age to complete this topic Pneumococcal Immunization Combined Aged Out No longer eligible based on patient's age to complete this topic Rotavirus Immunization Aged Out No lo nger eligible based on patient's age to complete this topic Insurance [place]ICAID [place] [employer] [facility] Care Teams Tool Room Lathe Operator Relationship Specialty Start Date End Date Dana Roy MD [address] [place] [address] PCP - General Family Medicine 03/21/21
--- OUTSIDE RECORDS SUMMARY | 2024-12-31 19:43 | XMS_ITS | Clinical Summary ---
Author Organization [facility] Address [address] [place] [address] Care Team Providers Care Flying I Instructor Name Role Phone Dana Roy MD Primary Care Provider [phone] Allergies Active Allergy Reactions Criticality Noted Date Comments Clindamycin Hives High 12/22/2017 Sulfa (Sulfonamide Antibiotics) Hives High 02/2024 Medications ARIPiprazole (ABILIFY) 10 mg tablet Take 10 mg by mouth daily. Active Qulipta 60 mg Tablet Take 1 Tablet by mouth daily. 4 Active atorvastatin (LIPITOR) 10 mg tablet Take 10 mg by mouth daily. Active Dexcom G7 Sensor Device USE TO MONITOR GLCUOSE 4 Active dicyclomine (BENTYL) 10 mg capsule Take 1 Capsule by mouth 3 times daily. 4 Active desvenlafaxine (PRISTIQ) 100 mg Extended Release 24 hour tablet Take 100 mg by mouth daily in the morning. Active amLODIPine (NORVASC) 2.5 mg tablet Take 1 Tablet by mouth daily. 4 Active Jardiance 25 mg tablet Take 25 mg by mouth daily. Active fluconazole (DIFLUCAN) 150 mg tablet Take 150 mg by mouth daily. 4 Active hydrOXYzine HCL (ATARAX) 25 mg tablet Take 25 mg by mouth 3 times daily as needed. Active ibuprofen (MOTRIN) 800 mg tablet Take 800 mg by mouth every 8 hours as needed for Pain. Active Tresiba FlexTouch U-100 100 unit/mL (3 mL) pen syringe INJECT 45 UNIT SUBCUTANEOUSLY DAILY NEEDED FOR INSULIN PUMP MALFUNCTION 4 Active metoprolol succinate (TOPROL XL) 50 mg Extended Release 24 hour tablet Take 50 mg by mouth daily. Active omeprazole (PriLOSEC) 40 mg Capsule, Delayed Release(E.C.) Take 1 Capsule by mouth 2 times daily. 4 Active ondansetron (ZOFRAN ODT) 4 mg Tablet, Rapid Dissolve 4 MG ORALLY EVERY 6 HOURS NEEDED FOR NAUSEA AND VOMITING Active spironolactone (ALDACTONE) 100 mg tablet Take 200 mg by mouth daily. Active metoclopramide HCl (REGLAN) 10 mg tablet Take 10 mg by mouth 4 times daily before meals and at bedtime. 4 Active Ubrelvy 100 mg tablet Take 100 mg by mouth one time only. 4 Active Mounjaro 15 mg/0.5 mL Pen Injector 4 Active vit/iron fum/folic ac ( 1+1 ORAL) Take by mouth. Activ e Lactobac no.41/Bifidoba ct no.7 (PROBIOTIC-10 ORAL) Take by mouth. Activ e Active Problems No known active problems Encounters Date Type Department Care Team Description 12/28/2024 External Device Data STL ABSTRACTION Provider, Abstract 12/21/2024 External Device Data STL ABSTRACTION Provider, Abstract 12/20/2024 Orders Only [facility] Oncology and Hematology - [place] [address] [place] [address] Phi Yates MD Leukocytosis, unspecified type 12/13/2024 Orders Only [facility] Oncology and Hematology - [place] [address] [place] [phone] Phi Yates MD 12/09/2024 Orders Only [facility] Oncology and Hematology - [place] [address] [place] [address] Phi Yates MD Leukocytosis, unspecified type (Primary Dx) 12/07/2024 External Device Data STL ABSTRACTION Provider, Abstract 12/02/2024 10:00 AM SALES TRAINER Office Visit [facility] Oncology and Hematology - [place] [address] [place] [phone] Phi Yates MD Leukocytosis, unspecified type (Primary Dx) 12/01/2024 External Device Data STL ABSTRACTION Provider, Abstract 12/01/2024 External Device Data STL ABSTRACTION Provider, Abstract 11/24/2024 External Device Data STL ABSTRACTION Provider, Abstract 11/14/2024 Telephone [facility] Oncology and Hematology [facility] [address] [place] [address] Phi Yates MD Lab Results 10/19/2024 External Device Data STL ABSTRACTION Provider, Abstract 10/19/2024 Orders Only [facility] Oncology and Hematology - [place] [address] [place] [address] Phi Yates MD 10/15/2024 Orders Only [facility] Oncology and Hematology - [place] [address] [place] [address] Phi Yates MD 10/14/2024 Abstract [facility] Oncology and Hematology [address] [place] [phone] Phi Yates MD 10/13/2024 3:00 PM SALES TRAINER Office Visit [facility] Oncology and Hematology [facility] [address] [place] [id number] Phi Yates MD Leukocytosis, unspecified type (Primary Dx) from Last 3 Months Family History Medical History Relation Name Comments Diabetes Brother Diabetes Father Heart Disease Mother Relation Name Status Comments Brother Alive Father Alive Mother Alive Social History Tobacco Use Types Packs/Day Years Used Date Smoking Tobacco: Former Cigarettes 0.2 1 Q uit: 10/03/2024 Tobacco Cessation:Counseling Given: Not Answered Alcohol Use Standard Drinks/Week Comments Yes 0 (1 standard drink = 0.6 oz pure alcohol) occassionally holidays/ special occasions Comments Unknown Sex and Gender Information Value Date Recorded Sex Assigned at Not on file Legal Sex Female 4:13 PM SALES TRAINER Gender Identity Not on file Sexual Orientation Not on file Last Filed Vital Signs Vital Sign Reading Time Taken Comments Blood Pressure 123/74 12/02/2024 10:03 AM SALES TRAINER Pulse 103 12/02/2024 10:03 AM SALES TRAINER Temperature 36.2 C (97.1 F) 12/02/2024 10:03 AM SALES TRAINER Respiratory Rate 16 12/02/2024 10:03 AM SALES TRAINER Oxygen Saturation 92% 10/13/2024 3:11 PM SALES TRAINER Inhaled Oxygen Concentration - - Weight 161.5 kg (356 lb) 12/02/2024 10:03 AM SALES TRAINER Height 170.2 cm (5' 7 ) 10/13/2024 3:11 PM SALES TRAINER Body Mass Index 55.76 10/13/2024 3:11 PM SALES TRAINER Plan of Treatment Upcoming Encounters Date Type Department Care Team (Late st Contact Info) Description 03/11/2025 10:00 AM CDT Office Visit [facility] Oncology and Hematology [facility] [address] [facility] [address] [place] [address] Phi Yates MD [address] [facility] [address] [place] [address] Health Maintenance Due Date Last Done Comments DIABETES ANNUAL FOOT EXAM 2001 DIABETES ANNUAL RETINAL EXAM 2001 DIABETES MICROALBUMIN ANNUAL SCREEN 2001 LDL CHOLESTEROL ANNUAL 2001 DTAP/TDAP/TD VACCINES (1 - Tdap) 2002 HEPATITIS B VACCINES (1 of 3 - 19+ 3-dose series) 2002 BREAST CANCER SCREENING 2023 INFLUENZA VACCINE (#1) 2024 Preventative Visit- Commercial 11/10/2024 DIABETES HBA1C Q 6 MONTHS 05/24/2025 11/24/2024 CERVICAL CANCER SCREENING 11/24/2027 11/24/2024 HPV VACCINES Aged Out No longer eligi ble based on patient's age to complete this topic Procedures Procedure Name Priority Date/Time Associated Diagnosis Comments CBC WITH DIFFERENTIAL Routine 12/10/2024 9:07 AM SALES TRAINER FLOW CYTOMETRY REPORT Routine 10/14/2024 12:43 PM SALES TRAINER BCR/ABL DIAGNOSTIC ASSAY W/REFLEX Routine 10/13/2024 3:16 PM SALES TRAINER COMPREHENSIVE METABOLIC PANEL Routine 10/13/2024 1:20 PM SALES TRAINER CBC WITH DIFFERENTIAL Routine 10/13/2024 11:41 AM SALES TRAINER CBC WITH DIFFERENTIAL Routine 10/13/2024 11:37 AM SALES TRAINER from Last 3 Months Results * CBC WITH DIFFERENTIAL (12/10/2024 9:07 AM SALES TRAINER) Only the most recent of3 resultswithin the time period is included. Blood us Phi Yates MD HEMATOLOGY ORDERABLES Final Res ult * FLOW CYTOMETRY REPORT (10/14/2024 12:43 PM SALES TRAINER) us Phi Yates MD PATHOLOGY/CYTOLOGY ORDERABLES F inal Result * BCR/ABL DIAGNOSTIC ASSAY W/REFLEX (10/13/2024 3:16 PM SALES TRAINER) us Provider Scanning BODY FLUIDS AND STOOLS Final R esult * COMPREHENSIVE METABOLIC PANEL (10/13/2024 1:20 PM SALES TRAINER) Blood us Phi Yates MD CHEMISTRY ORDERABLES Final Resu lt from Last 3 Months Insurance [employer] CHOICE POS [place]ID [place] Care Teams Flying I Instructor Relationship Specialty Start Date End Date Dana Roy MD [address] [place] [id number] PCP - General Family Practice 12/13/24
--- OUTSIDE RECORDS SUMMARY | 2024-12-31 19:43 | XMS_ITS | Data Portability ---
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 Patient will come back in a year unless there are new symptoms. [email or web address] Not available 11/24/2024 14:27:17 Plan of Treatment Reminders Order Date Submit Date Provider Last Modified By Organization Details Last Modified Time Details Appointments None recorded. Lab 17-hydroxyp rogesterone , QN, serum 2024 025 [facility] (Lab), [address] [place], [address], 5 21:38:29 dhea-sulfat e, serum 2024 025 [facility] (Lab), [address] [place], [address], 5 21:38:27 estradiol, serum 2024 025 [facility] (Lab), [address] [place], [address], 5 21:38:28 FSH (follicle-s timulating hormone), serum 2024 025 [facility] (Lab), [address], [place], [address], 5 21:38:29 HbA1c (hemoglobin A1c), blood [address] [place] [address] (Lab), [address], [place], [address], 5 21:38:27 lh (luteinizin g hormone), serum [address] [place] [address] (Lab), [address], [place], [address], 5 21:38:29 progesteron e, serum [address] [place] [address] (Lab), [address], [place], [address], 5 21:38:28 prolactin, serum [address] [place] [address] (Lab), [address] [facility], [place], [address], 5 21:38:28 shbg (sex hormone-bin ding globulin), serum [address] [place] [address] (Lab), [address] [place], [address], 5 21:38:26 TSH, serum or plasma [address] [place] [address] (Lab), [address] [place], [address], 5 21:38:27 testosteron e free/testos terone total, ratio, serum 2024 025 [facility] (Lab), [address] [place], [address], 5 21:38:29 Referral None recorded. Procedures None recorded. Surgeries None recorded. Imaging US, pelvis 20[address], [address], [place], [address], 5 21:13:52 US, transvagina l [address] [facility] [address], [place], [address], 5 21:13:52 MAMMO, screening, digital, bilateral 2024 025 [facility] (Mammography) , [address], [place], [address], 5 04:08:40 US, pelvis, complete 2024 025 [facility], [address], [place], [address], 5 04:01:33 Medication Orders Manjula 0.35 mg tablet 2024 025 [facility] [address], [address], 16:04:21 Patient TargetsNo targets recorded. Patient InstructionsNo instructions recorded. Reason for Referral None Reported. Results Created Date Observation Date Name Description Value Unit Range Abnormal Flag Note LastModifiedBy Organization Detail LastModifiedTime 11/24/19 25 11/24/2024 IMAGE GUIDE D PAP AND HPV REGAR DLESS image guided Pap, HPV regardless of Pap result SEE RESULT S BELOW CASE REPOR T: Cytol ogy Gynec ologi landon Repor t Case: [id number] Autho romana g Provi bereket: Pina Saleh, TAPE RECORDER MECHANIC Colle cted: 11/24 1525 Order ing Locat ion: [place] [facility] Recei alex: 11/25 0213 First Scree n: Strut z, Willi am, CT Rescr een: Ma, Herring, CT Speci men: Krissy shen Pap - Image d, Cervi x STATE MENT OF ADEQU ACY: Satis facto ry for evalu ation Trans forma tion zone compo nent absen t The absen ce of an endoc ervic al compo nent was confi rmed by an addit ional krissy ner. ----- ----- ----- ----- ----- ----- ----- ----- ----- ----- ----- ----- ----- ----- ----- ----- ----- ---- FINAL DIAGN OSIS: Negat damion for Intra epith elial Toñito knowles or Андрей currie ([facility]) . Elect noel hinds ember d by Nima Carey, CT on 2024 at 0949 STITCH WHEELER ----- ----- ----- ----- ----- ----- ----- ----- ----- ----- ----- ----- ----- ----- ----- ----- ----- ---- HPV RESUL TS: HPV mRNA E6/E7 : No HPV mRNA Detec belinda NOTE: This high risk HPV mRNA assay detec ts fourt een high- risk HPV types (16, 18, 31, 33, 35, 39, 45, 51, 52, 56, 58, 59, 66, 68) witho ut diffe renti ation . COMME NT: This speci men was revie wed by a Cytot echno logis t and/o r Patho logis t (as indic ated in this repor t) after evalu ation using the Thinp rep Imagi ng Syste m. CLINI LANDON INFOR MATIO N: Menst rual Statu s: LMP (if appli cable ): Clini landon Histo ry/Pr eviou s Pap: Type of Neopl lisa (if appli cable ): Signi ficdarek t Clini landon Findi ngs: Other Histo ry: Hormo dania (if appli cable ): PAP EDUCA VERÓNICA L NOTE: The Pap Test is a scree hermelinda test with an inher ent false negat damion rate. Liqui d-bas ed sampl ing may decre ase, but will not elimi carmen, false negat damion resul ts. A negat damion resul t does not precl ude the prese nce and/o r devel opmen t of disea se, since the prese nce of abnor mal cells in the sampl e depen ds on the locat ion of the lesio n and sampl ing techn ique. [place] nued regul ar scree hermelinda is the best metho d of cance r preve ntion . If repor belinda cytol ogic findi ng do not corre late with physi landon and/o r histo rical findi ngs, furth er inves tigat ion is recom sandra d, as clini [facility] [place] nted. Not Available [facility] (Lab) [address], [place], [address], 12/01/2024 10:53:25 11/24/19 25 11/24/2024 HUMAN SEX HORMO NE QUAN NG GLOBU CORONA sex hormone binding globulin 32.1 nmole s/L 18.2-1 35.5 Not Available [facility] (Lab) [address] [place], [address], 12/01/2024 21:38:26 11/24/19 25 11/24/2024 TSH, REFLE X FREE T4 TSH 1.19 uIU/m L 0.30-5 .33 Not Available [facility] (Lab) [address], [place], [address], 12/01/2024 21:38:27 11/24/19 25 11/24/2024 HEMOG LOBIN A1C hemoglobin A1C 8.2 % 4.0-5. 6 high The Ameri can [facility] angel[facility] [employer] iatio n recom mends that a prima ry goal of thera py emi d be a HBA1C of < 7% and that physi cians shoul d reeva luate the treat ment regim en in patie nts with HBA1C value s consi stent ly > 8%. <5.7% Karli l 5.7 - 6.4% Incre ased risk for diabe angelika >=6.5 % Diagn ostic of diabe angelika <7.0% Goal of thera py >8.0% Actio n sugge sted Not Available [facility] (Lab) [address], [place], [address], 12/01/2024 21:38:27 11/24/19 25 11/24/2024 DHEA SULFA TE DHEA-sulfate 48 ug/dL Femal e Range s Age(y ) Range (ug/d L) 10-15 34-28 0 15-20 65-36 8 20-25 148-4 07 25-35 99-34 0 35-45 61-33 7 45-55 35-25 6 55-65 19-20 5 65-75 9-246 > 75 12-15 4 Not Available [facility] (Lab) [address], [place], [address], 12/01/2024 21:38:27 11/24/19 25 11/24/2024 ESTRA DIOL estradiol 31.7 pg/mL This assay was perfo rmed using [employer] ratio n reage nts and test kits. Value s obtai best with other assay metho ds or kits canno t be used inter ruff eably . Femal e Estra diol Range s: Folli cular phase 12.4- 233 pg/mL Ovula tion phase 41.0- 398 pg/mL Lutea l phase 22.3- 341 pg/mL Postm enopa usal <5-13 8 pg/mL Healt hy Pregn ant Women 1st Trime ster 154-3 243 pg/mL 2nd Trime ster 1561- 66693 pg/mL 3rd Trime ster 8525- >3000 0 pg/mL Not Available [facility] (Lab) [address] , [place], [address], 12/01/2024 21:38:28 11/24/19 25 11/24/2024 PROLA CTIN prolactin, total 12.70 NG/mL 4.79-2 3.30 This assay was perfo rmed using [employer] ratio n reage nts and test kits. Value s obtai best with other assay metho ds or kits canno t be used [facility] . Not Available [facility] (Lab) [address] [place], [address], 12/01/2024 21:38:28 11/24/19 25 11/24/2024 PROGE STERO NE progesterone 0.25 NG/mL This assay was perfo rmed using [employer] n reage nts and test kits. Value s obtai best with other assay metho ds or kits canno t be used [facility] . Femal e Proge stero ne Range s: Folli cular phase 0.06- 0.89 ng/mL Ovula tion phase 0.12- 12.00 ng/mL Lutea l phase 1.83- 23.90 ng/mL Postm enopa usal <0.05 -0.13 ng/mL Healt hy Pregn ant Women 1st Trime ster 11.0- 44.30 2nd Trime ster 25.40 -83.3 0 3rd Trime ster 58.70 -214. 00 Not Available [facility] (Lab) [address], [place], [address], 12/01/2024 21:38:28 11/24/19 25 11/24/2024 LH (LUTE NIZIN G HORMO NE) LH 2.0 mIU/m L This assay was perfo rmed using [employer] ratio n reage nts and test kits. Value s obtai best with other assay metho ds or kits canno t be used [facility] . Femal es Mid-F ollic ular: 2.4-1 2.6 mIU/m L Mid-C ycle: 14.0- 95.6 mIU/m L Mid-L uteal : 1.0-1 1.4 mIU/m L Postm enopa use: 7.7-5 8.5 mIU/m L Not Available [facility] (Lab) [address], [place], [address], 12/01/2024 21:38:29 11/24/19 25 11/24/2024 FSH FSH 3.9 mIU/m L This assay was perfo rmed using [employer] ratio n reage nts and test kits. Value s obtai best with other assay metho ds or kits canno t be used inter ruff eably . Femal es Folli cular : 3.5-1 2.5 mIU/m L Ovula tion: 4.7-2 1.5 mIU/m L Lutea l: 1.7-7 .7 mIU/m L Postm enopa use: 25.8- 134.8 mIU/m L Not Available [facility] (Lab) [address], [place], [address], 12/01/2024 21:38:29 11/24/19 25 11/24/2024 TESTO STERO NE, FREE( DIALY SIS) AND TOTAL (LC/M S/MS) testosterone , total 24 NG/dL 2-45 For addit ional infor amada roberson e refer to http: //[facility] juma knowles.que stdia gnost ics.c om/fa q/ Total Testo stero neLCM SMSFA Q165 (This link is being provi ded for infor dilma cummings/ educa verónica l purpo ses only. ) This test was devel oped and its dominga tical perfo rmanc e delmy cteri stics have been deter mined by [facility] [place] It has not been clear ed or appro alex by the U.S. Food and Drug Admin istra tion. This assay has been valid ated pursu ant to the CLIA regul ation s and is used for clini landon purpo ses. Not Available [facility] (Lab) [address], [place], [address], 12/01/2024 21:38:29 11/24/19 25 11/24/2024 TESTO STERO NE, FREE( DIALY SIS) AND TOTAL (LC/M S/MS) testosterone , free 4.1 pg/mL 0.1-6. 4 This test was devel oped and its dominga tical perfo rmanc e delmy cteri stics have been deter mined by [facility] [place]. It has not been clear ed or appro alex by the U.S. Food and Drug Admin istra tion. This assay has been valid ated pursu ant to the CLIA regul ation s and is used for clini landon purpo ses. Perfo rming Organ izati on Infor [facility] n: Site ID: [id number] Name: [facility] angelica traylor [facility] Addre ss: [id number] [place], [place] Direc tor: Nely Carrero MD PhD Not Available [facility] (Lab) [address], [place], [address], 12/01/2024 21:38:29 11/24/19 25 11/24/2024 17-OH PROGE STERO NE 17-hydroxypr ogesterone, lc/MS/MS 14 NG/dL Adult Femal e Refer ence Range s for 17-Hy droxy proge stero ne: Pre-M enopa usal Mid Folli cular : 23-10 2 ng/dL Pre-M enopa usal Surge : 67-34 9 ng/dL Pre-M enopa usal Mid Lutea l: 139-4 31 ng/dL Postm enopa usal Phase : < or = 45 ng/dL Pregn nelly: First Trime ster: 78-45 7 ng/dL Secon d Trime ster: 90-35 7 ng/dL Third Trime ster: 144-5 78 ng/dL This test was devel oped and its dominga tical perfo rmanc e delmy cteri stics have been deter mined by [facility]. It has not been clear ed or appro alex by FDA. This assay has been valid ated pursu ant to the CLIA regul ation s and is used for clini landon purpo ses. Perfo rming Organ izati on Infor matio n: Site ID: [id number] Name: James dominguez s/Christiano shena [facility] darek wang , Addre ss: [id number] [place] [address] Direc tor: Fernanda cobos MD,Ph D,TERESA Not Available [facility] (Lab) [address], [place], [address], 12/01/2024 21:38:29 12/02/19 25 12/02/2024 US, pelvi s No observ ation record ed. [email or web address] [place] [address], [place], [address], 12/02/2024 13:58:23 12/02/19 25 12/02/2024 US, trans vagin al No observ ation record ed. [email or web address] [place] [address], [place], [address], 12/02/2024 13:58:36 12/02/19 25 12/02/2024 US, pelvi s No observ ation record ed. jose a [address] [facility], [place], [address], 12/14/2024 09:01:22 Result Notes None recorded. Problems Name Problem SNOMED Code Status Onset Date Resolution Date Notes Provider Name and Address Organization Details Recorded Time Body mass index 30+ - obesity 083039736 Active 2014 Body mass index (BMI) 50-59.9 , adult;Rec orded Elsewhere : No Locati on: [facility] So urce: EHR Chron ic: N Practic e ID: [id number] Bill able Time: 03:15:00 PM Not Available [facility] 0 14:28:44 Amenorrhe a [id number] Active 2015 Amenorrhe a;Recorde d Elsewhere : No Locati on: [facility] So urce: EHR Chron ic: N Practic e ID: [id number] Bill able Time: 04:45:00 PM Not Available [facility] 0 14:28:[address] Concept Active 2014 Encntr for general adult medical exam w/o abnormal findings; Recorded Elsewhere : No Locati on: [facility] So urce: EHR Chron ic: N Practic e ID: [id number] Bill able Time: 03:15:00 PM Not Available [facility] 0 14:28:44 Urinary tract infectiou s disease 76585136 Active 2015 Urinary tract infection , site not specified ;Recorded Elsewhere : No Locati on: [facility] So urce: EHR Chron ic: N Practic e ID: 0001 Bill able Time: 01:00:00 PM Not Available [facility] 0 14:28:44 test negative [id number] Active 2015 Encounter for test, result negative; Recorded Elsewhere : No Locati on: [facility] So urce: EHR Chron ic: N Practic e ID: 0001 Bill able Time: 04:30:00 PM Not Available [facility] 0 14:28:44 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 [id number] 995034 Active 2014 Cervical low risk HPV DNA test positive; Recorded Elsewhere : No Locati on: [facility] So urce: EHR Chron ic: N Practic e ID: 0001 Bill able Time: 03:15:00 PM Not Available [facility] 0 14:28:[address] Concept Active 2014 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) w/o abn findings; Recorded Elsewhere : No Locati on: [facility] So urce: EHR Chron ic: N Practic e ID: 0001 Bill able Time: 03:15:00 PM Not Available [facility] 0 14:28:44 Pelvic and perineal pain 991588873 Active 2015 Pelvic and perineal pain;Olayinka rded Elsewhere : No Locati on: [facility] So urce: EHR Chron ic: N Practic e ID: 0001 Bill able Time: 05:00:00 PM Not Available [facility] 0 14:28:44 Hypertens damion disorder 81500209 Active 2015 High blood pressure; Recorded Elsewhere : No Locati on: [facility] So urce: EHR Chron ic: N Practic e ID: 0001 Bill able Time: 04:45:00 PM Not Available [facility] 0 14:28:44 Reproduct damion care managemen t Active 2014 Encounter for other procreati ve managemen t;Recorde d Elsewhere : No Locati on: [facility] So urce: EHR Chron ic: N Practic e ID: 0001 Bill able Time: 03:00:00 PM Not Available [facility] 0 14:28:45 Finding of urine substance level Active 2015 Proteinur ia, unspecifi ed;Practi ce ID: [id number] Not Available [facility] 0 14:28:46 Problem Notes None recorded. Procedures Surgical History Date Name Laterality Status Provider Name and Address Organization Details Recorded Time 025 Date of Last Colonoscopy completed Gisselle Yarbrough [facility] 12/02/2024 18:14:47 025 Date of Last Pap Smear completed Jes Moya [facility] 12/13/2024 15:33:34 Cholecystectomy completed [facility] 11/24/2024 14:44:06 operation on fallopian tube completed [facility] 11/24/2024 14:44:34 Dilation and Curettage completed [facility] 11/24/2024 14:44:58 left salpingectomy completed JOSE G Soto [address], [place], [address], [facility] 11/24/2024 15:11:00 Removal of ovarian cyst(s) completed JOSE G Soto [address], [place], [address], [facility] 11/24/2024 15:11:12 uterine myomectomy completed JOSE G [address], [place], [address], [place] [facility] 11/24/2024 15:20:28 Imaging Results Imaging Date Name Status LastModified by Organization Details LastModified Time 12/02/2024 US, pelvis completed [email or web address] [place] [address], [place], [address], 12/02/2024 13:58:23 12/02/2024 US, transvaginal completed [email or web address] [place] [address], [place], [address], 12/02/2024 13:58:36 12/02/2024 US, pelvis completed lllazaro [address], [place], [address], 12/14/2024 09:01:22 Procedure Notes None recorded. Medical Equipment None Reported. Allergies Allergen ID Allergen Name Allergen Category Reaction Reaction Severity Criticality Documentation Date Start Date Code Code System Note Provider Name and Address Organization Details Recorded Time 10840 Substance with sulfonami de structure and antibacte rial mechanism of action (substanc e) medicatio n anaphylax is Not available Not available 10/27/2020 07931 8003 SNOMED React ion: Anaph ylaxi s; Comme nt: [facility]; Not Available [facility] 0 14:14:59 92651 clindamyc in Not available Not available Not available Not available 11/24/2024 2582 RxNorm Sharon burns, [facility] 5 14:32:12 Medications Name Sig Start Date Stop Date Status Note LastModified by Organization Details LastModified Time cyclobenz aprine 10 mg tablet TAKE 1 TABLET BY MOUTH THREE TIMES A DAY NEEDED FOR MUSCLE SPASMS 11/24 completed Not Available Not Available Not Available medroxypr ogesteron e 10 mg tablet TAKE 1 TABLET BY MOUTH EVERY DAY active Not Available Not Available No t Available metformin 500 mg tablet take 1 tablet by oral route 2 times every day with morning and evening meals 11/24 completed Prescrib ed Elsewher e: Yes Loca tion: [facility] eller [facility] M odify By: lindsay Tam r DateTime : 08/14/20 03:00:00 PM Not Available Not Available Not Available prednison e 10 mg tablet PLEASE SEE ATTACHED FOR DETAILED DIRECTIO NS 11/24 completed Not Available Not Available Not Available atorvasta tin 10 mg tablet TAKE 1 TABLET BY MOUTH EVERY DAY active Not Available Not Available No t Available ibuprofen 800 mg tablet TAKE 1 TABLET BY MOUTH EVERY 8 HOURS NEEDED FOR PAIN active Not Available Not Available No t Available fluconazo le 150 mg tablet TAKE 1 TABLET BY MOUTH TWICE WEEKLY 11/24 completed Not Available Not Available Not Available metoprolo l succinate ER 50 mg tablet,ex tended release 24 hr TAKE 1 TABLET BY MOUTH EVERY DAY active Not Available Not Available No t Available hydrocodo ne 5 mg-acetam inophen 325 mg tablet TAKE 1 TABLET BY MOUTH EVERY 6 HOURS NEEDED FOR PAIN 11/24 completed Not Available Not Available Not Available spironola ctone 100 mg tablet TAKE 2 TABLETS BY MOUTH DAILY active Not Available Not Available No t Available amlodipin e 2.5 mg tablet TAKE 1 TABLET BY MOUTH EVERY DAY 12/13 completed Not Available Not Available Not Available metronida zole 500 mg tablet TAKE 1 TABLET BY MOUTH EVERY 8 HOURS FOR 10 DAYS 11/24 completed Not Available Not Available Not Available omeprazol e 40 mg capsule,d elayed release TAKE 1 CAPSULE BY MOUTH TWICE A DAY active Not Available Not Available No t Available triamcino lone acetonide 0.1 % topical cream apply by topical route 2 times every day a thin layer to the affected area(s) 12/13 completed Prescrib ed Elsewher e: Yes Loca tion: [facility] odify By: lindsay Tam r DateTime : 08/14/20 03:00:00 PM Not Available Not Available Not Available Macrobid 100 mg capsule take 1 capsule by oral route every 12 hours with food 09/02 completed Prescrib ed Elsewher e: No Locat ion: [facility] odify By: lindsay Tam r DateTime : 04/25/20 16 01:00:00 PM Not Available Not Available Not Available meloxicam 7.5 mg tablet take 1 tablet by oral route every day 11/24 completed Prescrib ed Elsewher e: Yes Loca tion: [facility] odify By: lindsay Tam r DateTime : 08/14/20 15 03:00:00 PM Not Available Not Available Not Available cephalexi n 500 mg capsule TAKE 1 CAPSULE BY MOUTH EVERY 8 HOURS FOR 7 DAYS 11/24 completed Not Available Not Available Not Available metformin 1,000 mg tablet TAKE 1 TABLET BY MOUTH TWICE A DAY 11/24 completed Not Available Not Available Not Available dexametha sone 4 mg tablet 8 MG (2 X 4 MG) ORALLY ONCE FOR 1 DAY TAKE INSTRUCT ED THE EVENING PRIOR TO AM CORTISOL BLOOD DRAW active Not Available Not Available No t Available Loestrin 1/20 (21) 1 mg-20 mcg tablet take 1 tablet by oral route every day 2015 active Prescrib ed Elsewher e: No Locat ion: [facility] odify By: shanique kinney DateTime : 09/12/20 16 04:00:00 PM Not Available Not Available Not Available Ar 128 2 % eye drops 12/13 completed Prescrib ed Elsewher e: Yes Loca tion: [facility] odify By: lindsay Tam r DateTime : 08/14/20 03:00:00 PM Not Available Not Available Not Available Prevalite 4 gram powder for susp in a packet 4 GRAMS ORALLY DAILY ADMINIST ER W/MEAL AVOID OTHER MEDS WITHIN 1HR BEFORE OR 4-6HR AFTER DOSE active Not Available Not Available No t Available omeprazol e 20 mg capsule,d elayed release TAKE 1 CAPSULE BY MOUTH EVERY DAY 11/24 completed Not Available Not Available Not Available hydroxyzi ne HCl 25 mg tablet TAKE 1 TABLET BY MOUTH THREE TIMES A DAY DIRECTED active Not Available Not Available No t Available lisinopri l 5 mg tablet TAKE 1 TABLET BY MOUTH DAILY 11/24 completed Not Available Not Available Not Available mupirocin 2 % topical ointment APPLY TOPICALL Y TWICE A DAY active Not Available Not Available No t Available ergocalci ferol (vitamin D2) 1,250 mcg (50,000 unit) capsule TAKE 1 CAPSULE BY MOUTH WEEKLY FOR 14 WEEKS 11/24 completed Not Available Not Available Not Available Novolog U-100 Insulin aspart 100 unit/mL subcutane ous solution 120 UNIT (1.2 ML) VIA CONTINUO US SUBCUTAN EOUS INFUSION DAILY VIA INSULIN PUMP active Not Available Not Available No t Available letrozole 2.5 mg tablet TAKE 3 TABS DAILY FOR DAYS 5-9 active Not Available Not Available No t Available Zoloft 25 mg tablet take 1 tablet by oral route every day 11/24 completed Prescrib ed [facility] e: Yes Loca tion: [facility] odify By: lindsay taylor DateTime : 08/14/20 03:00:00 PM Not Available Not Available Not Available ondansetr on 4 mg disintegr ating tablet 4 MG ORALLY EVERY 8 HOURS NEEDED FOR NAUSEA AND VOMITING active Not Available Not Available No t Available cefdinir 300 mg capsule TAKE 1 CAPSULE BY MOUTH EVERY 12 HOURS FOR 5 DAYS 11/24 completed Not Available Not Available Not Available metformin ER 500 mg tablet,ex tended release 24 hr active Not Available Not Available Not Available dicyclomi ne 10 mg capsule TAKE 1 CAPSULE BY MOUTH THREE TIMES A DAY active Not Available Not Available No t Available metoclopr amide 10 mg tablet TAKE 1 TABLET BY MOUTH EVERY DAY BEFORE MEALS active Not Available Not Available No t Available amoxicill in 875 mg-potass ium clavulana te 125 mg tablet TAKE 1 TABLET BY MOUTH EVERY 12 HOURS UNTIL GONE 11/24 completed Not Available Not Available Not Available aripipraz ole 10 mg tablet TAKE 1 TABLET BY MOUTH EVERY DAY DIRECTED active Not Available Not Available No t Available topiramat e 50 mg tablet TAKE 1 TABLET BY MOUTH IN THE MORNING AND 2 TABLETS AT BEDTIME 11/24 completed Not Available Not Available Not Available eszopiclo ne 3 mg tablet 3 MG ORALLY ONCE TAKE [facility] 11/24 completed Not Available Not Available Not Available Vitamin 12/13 completed Not Available Not Available Not Available desvenlaf axine succinate ER 100 mg tablet,ex tended release 24 hr TAKE ONE TABLET BY MOUTH EVERY DAY active Not Available Not Available No t Available Zegerid OTC 20 mg-1.1 gram capsule take 1 capsule by oral route every day on an empty stomach at least 1 hour before meals swallowi ng whole with water. 12/13 completed Prescrib ed Elsewher e: Yes Loca tion: [facility] odify By: lindsay Tam r DateTime : 08/14/20 03:00:00 PM Not Available Not Available Not Available Probiotic active Not Available Not Jessica ilable Not Available OneTouch Verio test strips USE TO CHECK GLUCOSE 3-4 TIMES A DAY 11/24 completed Not Available Not Available Not Available Jencycla 0.35 mg tablet TAKE 1 TABLET BY MOUTH EVERY DAY active Not Available Not Available No t Available Fioricet 50 mg-300 mg-40 mg capsule take 1 - 2 capsule by oral route every 4 hours as needed not to exceed 6 capsules per 24hrs 11/24 completed Prescrib ed Elsewher e: Yes Loca tion: [facility] odify By: lindsay Tam r DateTime : 08/14/20 03:00:00 PM Not Available Not Available Not Available Jardiance 25 mg tablet TAKE 1 TABLET BY MOUTH EVERY DAY active Not Available Not Available No t Available Tresiba FlexTouch U-200 insulin 200 unit/mL (3 mL) subcutane ous pen INJECT 60 UNITS SUBCUTAN EOUSLY EVERY DAY 11/24 completed Not Available Not Available Not Available Tresiba FlexTouch U-100 insulin 100 unit/mL (3 mL) subcutane ous pen 45 UNIT (0.45 ML) SUBCUTAN EOUSLY DAILY NEEDED FOR INSULIN PUMP MALFUNCT ION active Not Available Not Available No t Available TRUEplus Pen Needle 32 gauge x 5/32 USE 1 NEW PEN NEEDLE DIRECTED DAILY 11/24 completed Not Available Not Available Not Available Aimovig Autoinjec tor 70 mg/mL subcutane ous auto-inje ctor INJECT 70 MG SUBCUTAN EOUSLY MONTHLY active Not Available Not Available No t Available Ubrelvy 100 mg tablet PLEASE SEE ATTACHED FOR DETAILED DIRECTIO NS active Not Available Not Available No t Available Qulipta 60 mg tablet TAKE 1 TABLET BY MOUTH EVERY DAY active Not Available Not Available No t Available Mounjaro 7.5 mg/0.5 mL subcutane ous pen injector INJECT 7.5 MG (0.5 ML) SUBCUTAN EOUSLY WEEKLY 11/24 completed Not Available Not Available Not Available Mounjaro 5 mg/0.5 mL subcutane ous pen injector 5 MG (0.5 ML) SUBCUTAN EOUSLY WEEKLY 11/24 completed Not Available Not Available Not Available Mounjaro 15 mg/0.5 mL subcutane ous pen injector INJECT 15 MG SUBCUTAN EOUSLY WEEKLY active Not Available Not Available No t Available Mounjaro 12.5 mg/0.5 mL subcutane ous pen injector INJECT 12.5 MG SUBCUTAN EOUSLY ONCE A WEEK 11/24 completed Not Available Not Available Not Available Dexcom G7 Sensor device USE TO MONITOR GLCUOSE 12/13 completed Not Available Not Available Not Available Vitals Date Recorded Body height Body mass index (BMI) Body weight Systolic blood pressure Diastolic blood pressure Provider Name and Address Organization Details Last Updated DateTime 11/24/2024 170.18 cm 56.4 kg/m2 839717.6 9 g 158 mm[Hg] 73 mm[Hg] Sharon Miller [facility] 14:31:46 Date Recorded Body height Body mass index (BMI) Body weight Systolic blood pressure Diastolic blood pressure Provider Name and Address Organization Details Last Updated DateTime 12/13/2024 170.18 cm 55.6 kg/m2 700712.2 9 g 150 mm[Hg] 88 mm[Hg] Jes Moya [facility] 15:30:53 Social History Question Answer Notes LastModified by Organizat ion Details LastModified Time Tobacco Smoking Status Former Smoker Sharonprasanna Hernandezney [facility] 11/24/2024 14:43:50 Do You Have An Advance Directive? No [email or web address] Information not available 12/02/2024 What Is Your Level Of Alcohol Consumption? Occasional [email or web address] Information not available 12/02/2024 How Many Years Have You Consumed Alcohol? 21 Information not available 12/13/2024 Are You Blind Or Do You Have Difficulty Seeing? No [email or web address] Information not available 12/02/2024 What Is Your Level Of Caffeine Consumption? Moderate [email or web address] Information not available 12/02/2024 How Much Tobacco Do You Chew? None [email or web address] Information not available 12/02/2024 In The 14 Days Before Symptom Onset, Have You Had Close Contact With A Laboratory-confir med COVID-19 While That Case Was Ill? No Information not available 11/24/2024 In The 14 Days Before Symptom Onset, Have You Had Close Contact With A Person Who Is Under Investigation For COVID-19 While That Person Was Ill? No Information not available 11/24/2024 Have You Been To An Area Known To Be High Risk For COVID-19? No [email or web address] Information not available 11/24/2024 Are You Deaf Or Do You Have Serious Difficulty Hearing? No [email or web address] Information not available 12/02/2024 What Type Of Diet Are You Following? REGULAR [email or web address] Information not available 12/02/2024 What Is The Highest Grade Or Level Of School You Have Completed Or The Highest Degree You Have Received? 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 Yes [email or web address] Information not available 12/02/2024 Do You Use Protection During Sex? No [email or web address] Information not available 12/02/2024 Do You Use Your Seat Belt Or Car Seat Routinely? Yes [email or web address] Information not available 12/02/2024 Do You Have Smoke And Carbon Monoxide Detectors In Your Home? Yes [email or web address] Information not available 12/02/2024 At What Age Did You Start Smoking Tobacco? 11 [email or web address] Information not available 12/02/2024 How Much Tobacco Do You Smoke? No [email or web address] Information not available 12/02/2024 Do You Feel Stressed (tense, Restless, Nervous, Or Anxious, Or Unable To Sleep At Night)? [id number] [email or web address] Information not available 12/02/2024 Do You Use Any Illicit Or Recreational Drugs? No [email or web address] Information not available 12/02/2024 Do You Use Sunscreen Routinely? Yes [email or web address] Information not available 12/02/2024 How Many Years Have You Smoked Tobacco? 5 Information not available 12/13/2024 Have You Used IV Drugs? No [email or web address] Information not available 12/02/2024 Sex: Unknown Functional Status Question Answer Note LastModified by Organization D etails LastModified Time Are you able to walk? YESWOREST [email or web address] Information not available 12/02/2024 What is your exercise level? None [email or web address] Information not available 12/02/2024 Mental Status None recorded. Family History Relationship Description Onset Age of this Age Resolved Age Notes LastModified by Organization Details LastModified Time Mother Heart disease [email or web address] Not available 2024 14:48:30 Mother Mental disorder [email or web address] Not available 2024 14:49:47 Father Diabetes mellitus [email or web address] Not available 2024 14:48:51 Father Mental disorder [email or web address] Not available 2024 14:49:47 Brother Diabetes mellitus [email or web address] Not available 2024 14:48:51 Brother Mental disorder [email or web address] Not available 2024 14:49:47 Notes:Brother: High choleste rol, Diabetes mellitus, Hypertension Father: Diabetes mellitus, High cholesterol, Hypertension Maternal aunt: High cholesterol, Hypertension, Cardiovascular disease, Diabetes mellitus Maternal grandfather: High cholesterol, Hypertension, Diabetes mellitus Maternal grandmother: Hypertension, Diabetes mellitus, High cholesterol Maternal uncle: Diabetes mellitus, Hypertension, Cardiovascular disease, High cholesterol Paternal aunt: Cardiovascular disease, High cholesterol, Diabetes mellitus, Hypertension, Cancer, breast Paternal grandfather: Hypertension, High cholesterol, Diabetes mellitus Paternal grandmother: Hypertension, Diabetes mellitus, Cardiovascular disease, High cholesterol Paternal uncle: Diabetes mellitus, Cardiovascular disease, High cholesterol, Hypertension Medical History Condition Response Allergies (Food, seasonal, environmental ) N Other Y Breast Cancer N Drug/Latex Allergies/Reactions N Blood Transfusion N Dermatologic Disorders N Lung Disease N Defects or Inherited Disease N Breast Problem N Gestational Diabetes N Hematologic disorders N Anesthesia Complications N History of STI N Deep Vein Thrombosis N Polycystic ovary syndrome Y Anxiety Disorder Y Autoimmune disease N Arthritis N Infertility Y Polyps N Acid Reflux (GERD) N History of abnormal pap Y Cancer N Stroke N Varicosities N Neurologic/Epilepsy N Endometriosis Y High Cholesterol Y Headaches N Fibromyalgia N Kidney Disease N Heart Problems N Kidney or Bladder Problems N Thyroid Problems N GI Problems N Eating Disorder N Anemia N Art (IVF or FET) N Psychiatric Illness Y Ovarian Cancer N Diabetes Y Pulmonary (TB, Asthma) N Hepatitis/Liver Disease N No Past Medical History N Eczema N Urinary Tract Infection N Abuse/Domestic Violence N Asthma N Trauma/Violence N Depression/ depression Y Heart Disease N Pre-Eclampsia N Hypertension Y Osteoporosis N Thrombophilias N Gynecological History Statement/Question Response Abnormal Pap Y Flow Heavy Date of Last Mammogram Date of LMP 11/26/2024 On BCP's at Conception? N N Was last menstrual period normal N STIs/STDs N HPV Vaccine N Duration of Flow (days) 5 Current Control Method Seeking Pre gnancy Are cycles usually normal N Date of Last Colonoscopy 2024 Sexually Active? Y Menses Monthly N Age of first menstrual cycle 9 Date of Last Pap Smear 11/24/2024 Sexual Problems? N LMP Approximate Y Obstetrics History GPAL:G 0 P 0 0 0 0 Past Encounters Encounter ID Performer Location Encounter Start Date Encounter Closed Date Diagnosis/Indication Diagnosis SNOMED-CT Code Diagnosis ICD10 Code Diagnosis Note [id number] JOSE G Soto [place] [address] [address] 11/24/2024 13:53:36 11/24/2024 15:31:24 Gynecologic examination 23645391 Z01.419 WWEPap - done todaySTI screen - declinedMa mmogram - order givenColon cancer screening - has colonoscop y scheduledR outine labs - UTD/PCPBP precaution s discussed, encouraged PCP f/uRTC in 1 yr or sooner if needed Suggested Calcium with Vitamin D daily. Patient advised to get an annual flu shot in the fall and she could obtain at local pharmacy. Also to obtain TDap vaccinatio n if you have not had one in the last 10 years. Recommend yearly mammograms . Encouraged monthly self breast exams. Encourage safe sexual practices, to use condoms and limit partners if not already in a monogamous relationsh ip. Engage in regular exercise. Avoid tobacco and illicit drugs. This lifestyle behavior pattern will lead to less health conditions and longer life span. If BMI greater than 25 dietary consult advised. All questions have been answered. Irregular periods 844155 07 N92.6 We discussed amenorrhea . We discussed polycystic ovarian syndrome. We discussed the diagnosis. We discussed the underlying disease process. We discussed laboratory evaluation . We discussed the prevention of endometria l cancer. We discussed protecting the endometriu m and how that is carried out. We discussed treatment in the context of a desired . We discussed medical treatment. We discussed the risk associated with PCOS and long-term health outcomes. labs orderedpel zoë u/s orderedDis cussed TTC in relation to age/BMI/cu rrent health conditions and risk associated encouraged diabetes control, weight loss/healt hy lifestyles cheduled for u/s f/u with Time spent in visit is a total of 45 mins with at least 50% of visit consisting of counseling and review of plan of care. Reproducti ve care management 166055231 Z31.9 Screening for malignant neoplasm of breast 517415134 Z12.39 Polycystic ovary syndrome 552838285 E28.2 [id number] [facility] [address] [address] 12/02/2024 12:14:15 12/02/2024 13:18:08 Irregular periods 03600205 N92.6 [id number] Luis Hale MD [place] [address] [address] 12/13/2024 14:45:03 12/13/2024 16:23:58 Abnormal uterine bleeding 9657015161 9100 N93.9 39-year-ol d female presents to discuss ultrasound results. We reviewed her ultrasound results. She a normal-christine earing uterus, essentiall y. There is a thicker posterior uterine. Reasons unknown. Patient has PCOS and abnormal uterine bleeding. She would like to protect the endometriu m. We talked about ways to do that. Talked about PCOS. Talked about fertility. Patient still desires . We agreed to progestero ne only pill. She will start the pill. I spent over 20 minutes on this patient's care in total. Health Concerns Section Related Observation LastModified by Organization Detai ls LastModified Time None Recorded Concern Status LastModified by Organization Details LastModified Time None Recorded Advance Directives Directive N: Payers Encounter Date Sequence Insurance Name Policy Number Policy Luna Covered Member ID Luna Member ID Guarantor Name 11/24/2024 1 [place] [facility] Angela Duncan [id number] Angela Duncan 11/24/2024 1 [employer] - CHOICE (POS II) [id number] Angela Duncan [id number] Angela Duncan 12/02/2024 1 [place] [facility] Angela Duncan [id number] Angela Duncan 12/02/2024 1 [employer] - CHOICE (POS II) [id number] Angela Duncan [id number] Angela Duncan 12/13/2024 1 [place] [facility] Angela Duncan [id number] Angela Duncan Notes Date Note Type Note Provider Name and Address Organization Details Recorded Time 11/24/2024 text/html Annual GYNReport ed bypatient.History:p rama in the near future; actively trying to conceive Menstrual cycle:Irregular cycle intervals Urinary symptoms:No hematuria; No incontinence Vulva:No genital lesion Vagina:Normal vaginal discharge Breast:No breast pain; No breast lump; No nipple discharge Current Contraception: control not practiced Sexual complaints:No sexual complaints; No pain during intercourse; Normal libido Menopausal Symptoms:No menopausal symptoms; Normal vaginal lubrication Psychological symptoms:No depression; No anxiety; No PMDD Preventive measures:Encourage self breast examination; Encourage regular exercise; Encourage no tobacco use; Encourage regular mammograms starting age 38Notes:38yo wwelast pap 2022 - normal per pth/o abnormal pap in 2021 - colposcopy done and wnl per pth/o PCOS/irregular periodshas been taking provera monthly for 7 days for the last 6 months. Prior to this was on OCPs. Last withdrawal bleed 08/2024Was [facility] and saw MD [facility] (had labs/pelvic u/s done 1 yr ago), procedure done for fibroids per pt (possible myomectomy but she is unsure). H/o left salpingectomy with left ovarian cystectomy (unknown year). Was taking letrozole from previous OBGYN (last 10/2024)Her partner was recently incarcerated and will be for the next 1-2 yrs per pt frequent yeast infection, diabetes uncontrolled, has been taking fluconazole weekly from previous OBGYN JOSE G Soto [address], [place], [address], [place] [facility] 11/24/2024 15:30:34 12/13/2024 text/html 39-year-old juli crespo presents to discuss ultrasound results. We reviewed her ultrasound results. She a normal-appearing uterus, essentially. There is a thicker posterior uterine. Reasons unknown. Patient has PCOS and abnormal uterine bleeding. She would like to protect the endometrium. We talked about ways to do that. Talked about PCOS. Talked about fertility. Patient still desires . We agreed to progesterone only pill. She will start the pill. I spent over 20 minutes on this patient's care in total. Luis Hale MD [address], [place], [address], [place] [facility] 12/13/2024 16:21:15 OBGyn Episode No OBEpisode recorded.
--- OUTSIDE RECORDS SUMMARY | 2024-12-31 19:44 | XMS_ITS ---
Author Organization Unknown Medications Medication Instructions Effective Dates (start - stop) Status empagliflozin 25 MG Oral Tab let [Jardiance] 9848-22-94O84:00:00.000+00 :00 - Completed empagliflozin 25 MG Oral Tab let [Jardiance] 6359-43-69X19:00:00.000+00 :00 - Completed - 2860-50-13A72:00 :00.000+00 :00 - Completed empagliflozin 25 MG Oral Tab let [Jardiance] 5937-99-58Y62:00:00.000+00 :00 - Completed - 3999-81-52F56:00 :00.000+00 :00 - Completed empagliflozin 25 MG Oral Tab let [Jardiance] 9696-48-61G29:00:00.000+00 :00 - Completed - 4561-88-02P85:00 :00.000+00 :00 - Completed - 9176-29-62Y05:00 :00.000+00 :00 - Completed - 7900-94-13M71:00 :00.000+00 :00 - Completed - 2728-24-56N55:00 :00.000+00 :00 - Completed empagliflozin 25 MG Oral Tab let [Jardiance] 9866-61-04T71:00:00.000+00 :00 - Completed - 9150-26-32S69:00 :00.000+00 :00 - Completed - 6075-15-62K13:00 :00.000+00 :00 - Completed - 3485-82-36R94:00 :00.000+00 :00 - Completed - 0325-51-36P75:00 :00.000+00 :00 - Completed 3 ML semaglutide 1.34 MG/ML Pen Injector [Ozempic] 8477-95-01C13:00:00.000+00 :00 - Completed 3 ML insulin degludec 200 UN T/ML Pen Injector [Tresiba] 0675-83-15C45:00:00.000+00 :00 - Completed dicyclomine hydrochloride 20 MG Oral Tablet 5751-46-24D84:00:00.000+00 :00 - Completed 3 ML insulin degludec 200 UN T/ML Pen Injector [Tresiba] 2246-06-75D17:00:00.000+00 :00 - Completed - 1657-81-62P55:00 :00.000+00 :00 - Completed 3 ML insulin aspart, human 1 00 UNT/ML Pen Injector [NovoLog] 4158-92-01L32:00:00.000+ 00 :00 - Completed 3 ML insulin degludec 200 UN T/ML Pen Injector [Tresiba] 8051-04-97C51:00:00.000+00 :00 - Completed medroxyprogesterone acetate 10 MG Oral Tablet 0050-31-89O94:00:00.000+00 :00 - Completed 3 ML insulin degludec 200 UN T/ML Pen Injector [Tresiba] 0452-09-90I66:00:00.000+00 :00 - Completed - 2149-77-14U92:00 :00.000+00 :00 - Completed 3 ML insulin degludec 200 UN T/ML Pen Injector [Tresiba] 3691-76-46K78:00:00.000+00 :00 - Completed - 9952-05-20S72:00 :00.000+00 :00 - Completed 3 ML insulin degludec 200 UN T/ML Pen Injector [Tresiba] 1242-99-05H40:00:00.000+00 :00 - Completed 3 ML insulin degludec 200 UN T/ML Pen Injector [Tresiba] 5473-29-51V60:00:00.000+00 :00 - Completed - 2244-66-98N68:00 :00.000+00 :00 - Completed 3 ML semaglutide 1.34 MG/ML Pen Injector [Ozempic] 7251-53-27A98:00:00.000+00 :00 - Completed 3 ML insulin degludec 200 UN T/ML Pen Injector [Tresiba] 9234-84-48M09:00:00.000+00 :00 - Completed - 4854-59-73U39:00 :00.000+00 :00 - Completed 3 ML insulin degludec 200 UN T/ML Pen Injector [Tresiba] 7382-40-86Q30:00:00.000+00 :00 - Completed - 7612-33-18A26:00 :00.000+00 :00 - Completed 3 ML insulin degludec 200 UN T/ML Pen Injector [Tresiba] 4495-27-33U47:00:00.000+00 :00 - Completed dicyclomine hydrochloride 20 MG Oral Tablet 9037-96-32G38:00:00.000+00 :00 - Completed 3 ML insulin aspart, human 1 00 UNT/ML Pen Injector [NovoLog] 6317-71-88A82:00:00.000+ 00 :00 - Completed cholestyramine resin 4000 MG Powder for Oral Suspension 0118-40-12G34:00:00.000+00 :00 - Completed dicyclomine hydrochloride 20 MG Oral Tablet 4461-74-80R49:00:00.000+00 :00 - Completed 3 ML insulin aspart, human 1 00 UNT/ML Pen Injector [NovoLog] 8588-44-84B64:00:00.000+ 00 :00 - Completed 3 ML insulin aspart, human 1 00 UNT/ML Pen Injector [NovoLog] 8856-04-07E85:00:00.000+ 00 :00 - Completed prednisone 10 MG Oral Tablet 01-13-12T:00:00.000+00 :00 - Completed Rimegepant 75 MG Disintegrat ing Oral Tablet [Nurtec] 1523-48-87G47:00:00.000+00 :00 - Completed fluticasone propionate 0.05 MG/ACTUAT Metered Dose Nasal [place] 5301-40-51F34:00:00 .000+00 :00 - Completed Rimegepant 75 MG Disintegrat ing Oral Tablet [Nurtec] 4023-46-34M93:00:00.000+00 :00 - Completed fluconazole 150 MG Oral Tablet 2 801-43-56K52:00:00.000+00 :00 - Completed dicyclomine hydrochloride 20 MG Oral Tablet 1680-11-91V77:00:00.000+00 :00 - Completed Rimegepant 75 MG Disintegrat ing Oral Tablet [[facility]] 0555-67-11A27:00:00.000+00 :00 - Completed fluconazole 150 MG Oral Tablet 2 655-97-44C00:00:00.000+00 :00 - Completed fluconazole 150 MG Oral Tablet 2 681-84-53Q56:00:00.000+00 :00 - Completed fluticasone propionate 0.05 MG/ACTUAT Metered Dose Nasal [place] 8080-11-98C48:00:00 .000+00 :00 - Completed fluconazole 150 MG Oral Tablet 2 270-59-16A42:00:00.000+00 :00 - Completed [facility] 3462-09-75F35:00:00.000+00 :00 - Completed dicyclomine hydrochloride 20 MG Oral Tablet 5168-51-67L49:00:00.000+00 :00 - Completed Rimegepant 75 MG [facility]at ing [facility] 7761-35-44M97:00:00.000+00 :00 - Completed fluticasone propionate 0.05 MG/ACTUAT Metered Dose Nasal [place] 1392-09-80X17:00:00 .000+00 :00 - Completed Rimegepant 75 MG [facility]at ing [facility] 2579-86-15M95:00:00.000+00 :00 - Completed 24 HR metoprolol succinate 5 0 MG Extended Release Oral Tablet 5257-58-62U55:00:00.000+0 0 :00 - Completed 24 HR metoprolol succinate 5 0 MG Extended Release Oral Tablet 4201-07-69C15:00:00.000+0 0 :00 - Completed topiramate 50 MG Oral Tablet 01-12-08:00:00.000+00 :00 - Completed {28 (norethindrone 0.35 MG O ral Tablet) } Pack 6164-83-57A50:00:00.000+00 :00 - Completed 24 HR metoprolol succinate 5 0 MG Extended Release Oral Tablet 3191-32-06A71:00:00.000+0 0 :00 - Completed 24 HR metoprolol succinate 5 0 MG Extended Release Oral Tablet 3748-49-55Y72:00:00.000+0 0 :00 - Completed topiramate 50 MG Oral Tablet 202 12-20-17:00:00.000+00 :00 - Completed {28 (norethindrone 0.35 MG O ral Tablet) } Pack 5238-47-37Z69:00:00.000+00 :00 - Completed topiramate 50 MG Oral Tablet 202 01-08-17:00:00.000+00 :00 - Completed topiramate 50 MG Oral Tablet 202 01-14-10:00:00.000+00 :00 - Completed metformin hydrochloride 1000 MG Oral Tablet 0511-83-42W79:00:00.000+00 :00 - Completed atorvastatin 10 MG Oral Tablet 2 469-35-51K55:00:00.000+00 :00 - Completed atorvastatin 10 MG Oral Tablet 2 882-83-21U22:00:00.000+00 :00 - Completed atorvastatin 10 MG Oral Tablet 2 615-73-24R96:00:00.000+00 :00 - Completed ondansetron 4 MG Oral Tablet 202 01-14-07:00:00.000+00 :00 - Completed lisinopril 5 MG Oral Tablet 2021:00:00.000+00 :00 - Completed atorvastatin 10 MG Oral Tablet 2 496-78-45P34:00:00.000+00 :00 - Completed {28 (norethindrone 0.35 MG O ral Tablet) } Pack 9780-72-23R71:00:00.000+00 :00 - Completed ondansetron 4 MG Oral Tablet 202 12-19-12:00:00.000+00 :00 - Completed ondansetron 4 MG Oral Tablet 202 12-20-01:00:00.000+00 :00 - Completed lisinopril 5 MG Oral Tablet 2022:00:00.000+00 :00 - Completed atorvastatin 10 MG Oral Tablet 2 526-05-02H50:00:00.000+00 :00 - Completed metformin hydrochloride 1000 MG Oral Tablet 4146-36-32K92:00:00.000+00 :00 - Completed cephalexin 500 MG Oral Capsule 2 863-71-62O30:00:00.000+00 :00 - Completed ondansetron 4 MG Oral Tablet 202 01-13-20:00:00.000+00 :00 - Completed aripiprazole 20 MG Oral Tablet 2 414-20-74R54:00:00.000+00 :00 - Completed metformin hydrochloride 1000 MG Oral Tablet 1087-20-13W65:00:00.000+00 :00 - Completed metformin hydrochloride 1000 MG Oral Tablet 6398-98-38N83:00:00.000+00 :00 - Completed lisinopril 5 MG Oral Tablet 2021:00:00.000+00 :00 - Completed lisinopril 5 MG Oral Tablet 2022:00:00.000+00 :00 - Completed {28 (norethindrone 0.35 MG O ral Tablet) } Pack 7764-45-95W49:00:00.000+00 :00 - Completed omeprazole 20 MG Delayed Rel ease Oral Capsule 5452-77-14Z36:00:00.000+00 :00 - Completed 12 HR pseudoephedrine hydroc hloride 120 MG Extended Release Oral Tablet 4852-68-55Y16:00:0 0.000+00 :00 - Completed ibuprofen 800 MG Oral Tablet 12-19-12:00:00.000+00 :00 - Completed omeprazole 20 MG Delayed Rel ease Oral Capsule 0162-16-40H21:00:00.000+00 :00 - Completed ibuprofen 800 MG Oral Tablet 01-13-07:00:00.000+00 :00 - Completed - 3551-24-01B79:00 :00.000+00 :00 - Completed letrozole 2.5 MG Oral Tablet 01-13-29:00:00.000+00 :00 - Completed ibuprofen 800 MG Oral Tablet 01-12-11:00:00.000+00 :00 - Completed ibuprofen 800 MG Oral Tablet 202 12-20-09:00:00.000+00 :00 - Completed - 2981-65-95X74:00 :00.000+00 :00 - Completed ibuprofen 800 MG Oral Tablet 202 12-22-07:00:00.000+00 :00 - Completed ibuprofen 800 MG Oral Tablet 202 01-09-08:00:00.000+00 :00 - Completed - 3056-96-49W11:00 :00.000+00 :00 - Completed ibuprofen 800 MG Oral Tablet 202 12-21-06:00:00.000+00 :00 - Completed omeprazole 20 MG Delayed Rel ease Oral Capsule 1845-86-40D30:00:00.000+00 :00 - Completed ibuprofen 800 MG Oral Tablet 202 01-10-05:00:00.000+00 :00 - Completed ibuprofen 800 MG Oral Tablet 202 01-14-05:00:00.000+00 :00 - Completed ibuprofen 800 MG Oral Tablet 202 01-09-06:00:00.000+00 :00 - Completed omeprazole 20 MG Delayed Rel ease Oral Capsule 7092-12-05Y67:00:00.000+00 :00 - Completed - 3893-15-46B30:00 :00.000+00 :00 - Completed - 1016-46-70C03:00 :00.000+00 :00 - Completed ibuprofen 800 MG Oral Tablet 12-18-15:00:00.000+00 :00 - Completed - 1333-57-29S64:00 :00.000+00 :00 - Completed omeprazole 20 MG Delayed Rel ease Oral Capsule 8823-02-67K90:00:00.000+00 :00 - Completed ibuprofen 800 MG Oral Tablet 202 01-11-05:00:00.000+00 :00 - Completed - 9166-41-80U47:00 :00.000+00 :00 - Completed - 3629-13-74Z32:00 :00.000+00 :00 - Completed - 0286-97-77O32:00 :00.000+00 :00 - Completed hydroxyzine hydrochloride 25 MG Oral Tablet 1700-32-27Q65:00:00.000+00 :00 - Completed aripiprazole 20 MG Oral Tablet 2 896-88-43A46:00:00.000+00 :00 - Completed aripiprazole 20 MG Oral Tablet 2 274-07-30P73:00:00.000+00 :00 - Completed metronidazole 500 MG Oral Tablet 5166-00-94F26:00:00.000+00 :00 - Completed spironolactone 100 MG Oral Tablet 1879-01-18K59:00:00.000+00 :00 - Completed ciprofloxacin 500 MG Oral Tablet 9460-91-72B32:00:00.000+00 :00 - Completed spironolactone 100 MG Oral Tablet 0747-71-55W84:00:00.000+00 :00 - Completed metronidazole 500 MG Oral Tablet 6767-33-11L92:00:00.000+00 :00 - Completed ciprofloxacin 500 MG Oral Tablet 1617-76-00E73:00:00.000+00 :00 - Completed hydroxyzine hydrochloride 25 MG Oral Tablet 8459-70-67B94:00:00.000+00 :00 - Completed clotrimazole 20 MG/ML Vaginal Cream 7982-85-17F18:00:00.000+00 :00 - Completed hydroxyzine hydrochloride 25 MG Oral Tablet 0114-88-38T05:00:00.000+00 :00 - Completed hydroxyzine hydrochloride 25 MG Oral Tablet 6432-10-29W19:00:00.000+00 :00 - Completed spironolactone 100 MG Oral Tablet 7718-26-90T49:00:00.000+00 :00 - Completed - 5126-91-43I70:00 :00.000+00 :00 - Completed metronidazole 500 MG Oral Tablet 5898-50-64C59:00:00.000+00 :00 - Completed spironolactone 100 MG Oral Tablet 1236-22-05C19:00:00.000+00 :00 - Completed spironolactone 100 MG Oral Tablet 3778-85-03K86:00:00.000+00 :00 - Completed hydroxyzine hydrochloride 25 MG Oral Tablet 6451-92-03Q05:00:00.000+00 :00 - Completed - 4186-20-54G68:00 :00.000+00 :00 - Completed - 2318-89-95E76:00 :00.000+00 :00 - Completed - 2382-42-61U12:00 :00.000+00 :00 - Completed - 2311-02-45J49:00 :00.000+00 :00 - Completed - 5252-54-78N68:00 :00.000+00 :00 - Completed - 3202-93-40R10:00 :00.000+00 :00 - Completed - 4230-37-34I33:00 :00.000+00 :00 - Completed - 8659-61-21O71:00 :00.000+00 :00 - Completed - 1668-61-53Y06:00 :00.000+00 :00 - Completed - 8320-06-98C34:00 :00.000+00 :00 - Completed - 8708-87-19E07:00 :00.000+00 :00 - Completed - 3688-60-56W46:00 :00.000+00 :00 - Completed - 7341-23-96O57:00 :00.000+00 :00 - Completed - 0933-23-80T54:00 :00.000+00 :00 - Completed oxycodone hydrochloride 5 MG Oral Tablet 6040-57-93U82:00:00.000+00 :00 - Completed - 7383-36-23W94:00 :00.000+00 :00 - Completed - 5061-49-37O18:00 :00.000+00 :00 - Completed amoxicillin 875 MG / clavula carmen 125 MG Oral Tablet 0111-06-50E79:00:00.000+00 :00 - Completed amoxicillin 875 MG / clavula carmen 125 MG Oral Tablet 9468-78-99T62:00:00.000+00 :00 - Completed betamethasone 0.5 MG/ML / clotrimazole 10 MG/ML Topical Cream 1788-87-23O22:00:0 0.000+00 :00 - Completed amoxicillin 875 MG / clavula carmen 125 MG Oral Tablet 3578-75-27X09:00:00.000+00 :00 - Completed betamethasone 0.5 MG/ML / clotrimazole 10 MG/ML Topical Cream 9626-96-98G80:00:0 0.000+00 :00 - Completed acetaminophen 325 MG / hydro codone bitartrate 5 MG Oral Tablet 0182-22-66V21:00:00.000+00 :00 - Completed amoxicillin 875 MG / clavula carmen 125 MG Oral Tablet 4057-39-54G52:00:00.000+00 :00 - Completed Patient Care team information Name Category Status Period Participants - - Proposed period not known -
[2024-12-31 19:45] VITALS: BP 117/82; PULSE 108; RESP 20; TEMP 36.3; O2SAT 97
--- NOTE | 2024-12-31 19:50 | ED.SKABFB ---
HPI - Skin/Abscess/Foreign Bdy General Chief complaint: Skin/Abscess/Foreign Body Stated complaint: Skin Sore Time Seen by Provider: 12/31/24 19:45 Source: patient Mode of arrival: ambulatory Limitations: no limitations History of Present Illness HPI narrative: Patient is a 39-year-old female who presents with skin sore on left lower abdomen from previous insulin port site. Patient states it has got worse over the last 2 days. Patient states she has tried cleaning it with normal soap and water. States she has had infected sites previously and had been hospitalized and required surgery. Related Data Home Medications ?Medication ?Instructions ?Recorded ?Confirmed ?Last Taken ?Type hydroxyzine pamoate 25 mg capsule 25 mg PO TID PRN Anxiety 09/21/19 12/06/24 11/24/24 History aripiprazole 20 mg tablet 20 mg PO DAILY 07/18/20 12/10/24 11/24/24 History desvenlafaxine succinate 100 mg 100 mg PO DAILY 07/18/20 12/06/24 11/24/24 History tablet,extended release 24 hr Allergies Allergy/AdvReac Type Severity Reaction Status Date / Time clindamycin Allergy Intermediate Hives Verified 12/31/24 19:48 Sulfa (Sulfonamide Allergy Intermediate Hives Verified 12/31/24 19:48 Antibiotics) Review of Systems Review of Systems: All systems reviewed & are unremarkable except as noted in HPI and below Constitutional: Constitutional: Denies body ache(s), Denies chills, Denies fatigue, Denies fever(s), Denies headache(s), Denies malaise and Denies weakness Eyes: Eyes: Denies blurry vision, Denies irritation and Denies loss of vision ENT: Denies otalgia, Denies headache(s), Denies nasal discharge, Denies sinus pain and Denies sore throat Cardiovascular: Cardiovascular: Denies chest pain, Denies irregular heart rhythm and Denies dyspnea Respiratory: Respiratory: Denies dyspnea Gastrointestinal: Gastrointestinal: Denies abdominal pain, Denies melena, Denies hematochezia, Denies diarrhea, Denies nausea and Denies vomiting Musculoskeletal: Musculoskeletal: Denies back pain, Denies myalgias and Denies arthralgias Integumentary/Breasts: Skin/Breast: Denies pruritus, Denies rash and Reports wounds Neurologic: Denies headache(s), Denies loss of vision and Denies weakness Psychiatric: Psychiatric: Reports no additional psychiatric complaints Endocrine: Endocrine: Denies fatigue [facility] Past Medical History Medical History Erythrocytosis Back spasm Bilateral leg pain Insulin pump fitting or adjustment Nausea & vomiting Ureterolithiasis Bilateral lower abdominal pain Hypoventilation associated with obesity Post-operative complication Vaginal bleeding Change in bowel habit Type 2 diabetes mellitus Acute bronchitis Hypertension Headache, migraine Allergies Chest wall syndrome Dyspnea Pleuritic chest pain Pneumonia due to COVID-19 virus Hyperlipidemia associated with type 2 diabetes mellitus GERD (gastroesophageal reflux disease) KAYLEE (obstructive sleep apnea) Ureter obstruction Left ureteral stone Eczema PTSD (post-traumatic stress disorder) Anxiety Depression Seeing psychiatry Elbow fracture, right Wrist fracture, bilateral Leg fracture, left PCOS (polycystic ovarian syndrome) TIA (transient ischemic attack) Migraine Seeing neurology Surgical History Surgical History Hx of excision of mass Excisional sharp debridement with scalpel of necrotic skin and subcutaneous tissue lower abdominal wall wound 05/07/24 S/P laparoscopic procedure History of lithotripsy History of removal of cyst H/O laparoscopy laparoscopic extensive lysis of adhesions/hysteroscopy/ polypectomy/dilatation curettage Hx of cholecystectomy Family History Family History Father Diabetes mellitus Hypertension Family history of elevated blood lipids Grandparent Diabetes mellitus Family history of coronary artery disease Mother Hypertension Other Cancer Cerebrovascular accident Depression Social History Social History Social History: Angela is very confident filling out medical forms. In the last 12 months she has not received assistance from an organization or program. She started vaping 2 weeks ago and prior to that she smoked cigarettes for 1 year. She is single and has No children . 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 She drinks alcohol socially. She lives with her niece and her family. Code status full code Smoking packs per day: 0.15 Smoking cigarettes per day: 3.0 Years smoked: 5 Smoking pack-years: 0.75 Smoking status: Current every day smoker Tobacco type: cigarettes and e-cigarettes/vaping Second hand tobacco smoke exposure: No Additional smoking assessment comments: STOPPED CIGARETTES MID 2021, NOW VAPING Alcohol intake: current Drinks per week: 1 Alcohol use details: 1-2/YEAR Substance use: current Substance use type: marijuana Other substance usage details: every once in awhile. 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 There is no relevant family history pertinent to the presenting complaint. Exam Const: General: cooperative, healthy appearing, comfortable, no acute distress and well nourished Nutritional Appearance: well nourished Orientation/consciousness: patient oriented x3 Limitations: no limitations HENMT: Head: normal to inspection, normocephalic and atraumatic Ears: hearing grossly normal bilaterally and external ears normal Face/Nose/Sinus: Normal external nose present, normal facial exam and face symmetric Face and sinus: normal facial exam and face symmetric Mouth: Yes lip normal Eyes: General: appearance normal, both eyes and all related structures Alignment and Position: alignment normal and position normal Periorbital: periorbital findings normal Eyelids: eyelids normal Pupils: Equal, round and reactive pupils present EOM: EOMs intact bilaterally Neck: Neck: normal visual inspection, full ROM and supple Chest: Chest palpation & inspection: normal inspection of the chest Resp: Effort & Inspection: normal respiratory effort and able to speak in complete sentences Auscultation: clear to auscultation bilaterally Cardio: Rate: tachycardic Rhythm: regular rhythm Heart sounds: S1 normal heart sound present and S2 normal heart sound present GI: Inspection: normal to inspection Skin: General skin exam: normal color and no rashes or lesions noted Full body images:  1. 3.5 cm area of erythema, induration, warmth. Center with small opening and active purulence drainage. Large amount expressed with gentle pressure. Neuro: General: patient oriented x3 and moves all extremities Cranial nerves: Yes Equal, round and reactive pupils present Speech: normal speech Gait exam (Neuro): Normal gait present Extrem: General: normal to inspection, full ROM and no edema Psych: Appearance: grossly normal and well kempt Mental Status: mental status grossly normal Speech and movement: Normal speech and movement present Affect: normal affect Attitude: cooperative Thought process: Normal thought process present Course Course Emergency Course: Patient is aware of diagnosis, understands and agrees to treatment plan. Anticipatory guidance given. Patient agrees to follow-up as directed and is aware of reasons to seek care at the emergency department. Portions of this record may have been created with voice recognition software Level of Care: Express Care Visit Vital Signs Vital signs: Vital Signs Temperature 36.3 C L 12/31/24 19:45 Pulse Rate 108 H 12/31/24 19:45 Respiratory Rate 20 12/31/24 19:45 Blood Pressure 117/82 12/31/24 19:45 Pulse Oximetry 97 12/31/24 19:45 Oxygen Delivery Room Air 12/31/24 19:45 Temperature 36.3 C L 12/31/24 19:45 Pulse Rate 108 H 12/31/24 19:45 Respiratory Rate 20 12/31/24 19:45 Blood Pressure 117/82 12/31/24 19:45 Pulse Oximetry 97 12/31/24 19:45 Oxygen Delivery Room Air 12/31/24 19:45 Reviewed MDM - Skin/Abscess/Foreign Bdy MDM Narrative Medical decision making narrative: Pt well hydrated appearing, in no respiratory distress, hemodynamically stable. Recommend supportive care. The patient is stable at time of discharge the clinical impression was discussed and the patient was given the opportunity to ask questions, which were addressed as completely as possible given the information available at present. Anticipatory guidance and return to care precautions were discussed and the importance of primary care follow-up was stressed and encouraged. The patient voiced understanding of the plan, indications to return, and the need for follow-up. Exam findings show no acute concerns or changes Patient is appropriate for outpatient treatment and follow-up. Differential Diagnosis Differential diagnosis: Likely abscess of skin or subcutaneous tissue, urticaria, allergic reaction to drug, cellulitis and contact dermatitis Medical Records Attestation: I reviewed the patient's medical records. Discharge Plan Discharge Clinical Impression: Abscess of skin or subcutaneous tissue Qualifiers: Site of cutaneous abscess: trunk Site of cutaneous abscess of trunk: abdominal wall Qualified Code(s): L02.211 - Cutaneous abscess of abdominal wall Patient Disposition: Home, Self-Care Condition: Stable Instructions: Abscess (ED) Additional Instructions: Take antibiotics as prescribed You may shower - let the soapy water clean your wound, do not scrub it. Keep your wound covered to prevent transmission of infection to other people. Keep the wound covered and dry. Once a day: wash the wound with soap/water, apply bacitracin or neosporin and re-cover the wound. Follow up with your primary care physician or in the Emergency Department in 2-3 days for a wound check. 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 Misc See Rx Instructions .ROUTE .MEDSUPPLY Qty: 1 0RF Rx Instructions: Will use smartphone aripiprazole 20 mg tablet 20 mg PO DAILY desvenlafaxine succinate 100 mg tablet extended release 24 hr 100 mg PO DAILY Qulipta 60 mg tablet 60 mg PO DAILY Qty: 30 6RF hydroxyzine pamoate 25 mg capsule 25 mg PO TID PRN (Reason: Anxiety) (DME) OneTouch Verio test strips Strip See Rx Instructions .ROUTE .COMPLEX Qty: 100 7RF Dose Instruction: USE TO CHECK GLUCOSE 3-4 TIMES A DAY Rx Instructions: USE TO CHECK GLUCOSE 3-4 TIMES A DAY amlodipine 2.5 mg tablet 2.5 mg PO DAILY Qty: 90 1RF Jardiance 25 mg tablet 25 mg PO DAILY Qty: 90 1RF Ubrelvy 100 mg tablet See Rx Instructions .ROUTE .COMPLEX Qty: 10 3RF Dose Instruction: 100 MG ORALLY ONCE NEEDED FOR MIGRAINE HEADACHE A SINGLE DOSE MAY REPEAT ONCE IN >=2 HOURS AFTER FIRST DOSE IF NEEDED Patient Comments: prn Rx Instructions: 100 MG ORALLY ONCE NEEDED FOR MIGRAINE HEADACHE A SINGLE DOSE MAY REPEAT ONCE IN >=2 HOURS AFTER FIRST DOSE IF NEEDED (DME) pen needle, diabetic [Pen Needle] 32 gauge x 5/32 needle See Rx Instructions .Route Qty: 100 8RF Rx Instructions: As directed daily insulin aspart U-100 [Novolog U-100 Insulin aspart] 100 unit/mL solution 120 unit continuous subcutaneous infusion DAILY Qty: 110 3RF Rx Instructions: via insulin pump cholestyramine-aspartame [Cholestyramine Light] 4 gram powder in packet 4 g PO DAILY Qty: 90 1RF Rx Instructions: administer w/meal; avoid other meds within 1hr before or 4-6hr after dose metoprolol succinate 50 mg tablet extended release 24 hr 50 mg PO DAILY Qty: 90 1RF atorvastatin 10 mg tablet 10 mg PO DAILY Qty: 90 3RF insulin degludec [Tresiba FlexTouch U-100] 100 unit/mL (3 mL) insulin pen 45 unit subcut DAILY PRN (Reason: insulin pump malfunction ) Qty: 15 1RF spironolactone 100 mg tablet 200 mg PO DAILY Qty: 90 1RF Qulipta 60 mg tablet 60 mg PO DAILY Qty: 28 0RF Rx Instructions: Pt given 28 tabs samples on 11/23/2024. Lot [id number] Exp 12/05 Mounjaro 2.5 mg/0.5 mL pen injector 2.5 mg subcut WEEKLY Qty: 2 0RF Rx Instructions: for 4 weeks Mounjaro 5 mg/0.5 mL pen injector 5 mg subcut WEEKLY Qty: 6 1RF metformin [Glucophage XR] 500 mg tablet extended release 24 hr 1,000 mg PO BID Qty: 360 1RF (DME) Dexcom G7 Sensor Device See Rx Instructions .ROUTE .MEDSUPPLY Qty: 9 3RF Patient Comments: Patient states uses this dexcom Rx Instructions: Use to monitor glcuose metoclopramide HCl 10 mg tablet See Rx Instructions .ROUTE .COMPLEX Qty: 90 0RF Dose Instruction: TAKE 1 TABLET BY MOUTH EVERY DAY BEFORE MEALS Rx Instructions: TAKE 1 TABLET BY MOUTH EVERY DAY BEFORE MEALS omeprazole 40 mg capsule,delayed release(DR/EC) See Rx Instructions .ROUTE .COMPLEX Qty: 180 1RF Dose Instruction: TAKE 1 CAPSULE BY MOUTH TWICE A DAY Rx Instructions: TAKE 1 CAPSULE BY MOUTH TWICE A DAY ondansetron 4 mg tablet,disintegrating 4 mg PO Q8H PRN (Reason: nausea and vomiting) Qty: 10 0RF Patient Comments: Patient states only takes one ondansetron tablets Follow-up/Referrals: Dana Roy MD [Primary Care Provider] - 3 Days Time of Disposition: 19:58
== END 2024-12-31 20:03 | disposition home or self-care (01) ==
PROVIDERS: Emergency Provider Nurse Practitioner Family; PCP Family Medicine
DX: L02.211 Cutaneous abscess of abdominal wall (principal); E11.9 Type 2 diabetes mellitus without complications; I10 Essential (primary) hypertension; F17.210 Nicotine dependence, cigarettes, uncomplicated
CPT/HCPCS: 87070; 87075; 87181; 87205; 99213; G0463

== ENCOUNTER 2025-01-16 10:46 | Emergency (ER) | payer MEDICAID, SELFPAY ==
[2025-01-16 10:50] VITALS: BP 152/86; PULSE 103; RESP 20; TEMP 36.2; O2SAT 100
--- OUTSIDE RECORDS SUMMARY | 2025-01-16 10:50 | XMS_ITS ---
Author Organization Unknown Medications Medication Instructions Effective Dates (start - stop) Status empagliflozin 25 MG Oral Tab let [Jardiance] 5440-09-09I34:00:00.000+00 :00 - Completed empagliflozin 25 MG Oral Tab let [Jardiance] 5162-72-84G33:00:00.000+00 :00 - Completed - 2183-58-25S24:00 :00.000+00 :00 - Completed empagliflozin 25 MG Oral Tab let [Jardiance] 4592-65-98J55:00:00.000+00 :00 - Completed - 6971-71-65Y26:00 :00.000+00 :00 - Completed empagliflozin 25 MG Oral Tab let [Jardiance] 9816-53-64R20:00:00.000+00 :00 - Completed - 5438-44-38L91:00 :00.000+00 :00 - Completed - 6877-90-82U59:00 :00.000+00 :00 - Completed - 1739-87-47O95:00 :00.000+00 :00 - Completed - 3373-66-19V50:00 :00.000+00 :00 - Completed empagliflozin 25 MG Oral Tab let [Jardiance] 8204-44-48Y65:00:00.000+00 :00 - Completed - 8098-06-10O47:00 :00.000+00 :00 - Completed - 7935-19-79M80:00 :00.000+00 :00 - Completed - 8143-50-95S47:00 :00.000+00 :00 - Completed - 3906-48-44Q53:00 :00.000+00 :00 - Completed 3 ML semaglutide 1.34 MG/ML Pen Injector [Ozempic] 6564-34-79N04:00:00.000+00 :00 - Completed 3 ML insulin degludec 200 UN T/ML Pen Injector [Tresiba] 9997-98-51L41:00:00.000+00 :00 - Completed dicyclomine hydrochloride 20 MG Oral Tablet 1350-36-59R19:00:00.000+00 :00 - Completed 3 ML insulin degludec 200 UN T/ML Pen Injector [Tresiba] 1996-65-62J89:00:00.000+00 :00 - Completed - 1998-03-20M33:00 :00.000+00 :00 - Completed 3 ML insulin aspart, human 1 00 UNT/ML Pen Injector [NovoLog] 2610-42-97I03:00:00.000+ 00 :00 - Completed 3 ML insulin degludec 200 UN T/ML Pen Injector [Tresiba] 7492-48-46Q10:00:00.000+00 :00 - Completed medroxyprogesterone acetate 10 MG Oral Tablet 9100-12-67Y99:00:00.000+00 :00 - Completed 3 ML insulin degludec 200 UN T/ML Pen Injector [Tresiba] 7143-15-37Z69:00:00.000+00 :00 - Completed - 1413-33-78K20:00 :00.000+00 :00 - Completed 3 ML insulin degludec 200 UN T/ML Pen Injector [Tresiba] 5481-28-73O70:00:00.000+00 :00 - Completed - 6170-28-58R75:00 :00.000+00 :00 - Completed 3 ML insulin degludec 200 UN T/ML Pen Injector [Tresiba] 6148-18-30P58:00:00.000+00 :00 - Completed 3 ML insulin degludec 200 UN T/ML Pen Injector [Tresiba] 2573-91-25D17:00:00.000+00 :00 - Completed - 8369-45-07Z59:00 :00.000+00 :00 - Completed 3 ML semaglutide 1.34 MG/ML Pen Injector [Ozempic] 0764-62-51D57:00:00.000+00 :00 - Completed 3 ML insulin degludec 200 UN T/ML Pen Injector [Tresiba] 2628-09-68U79:00:00.000+00 :00 - Completed - 2751-68-94R94:00 :00.000+00 :00 - Completed 3 ML insulin degludec 200 UN T/ML Pen Injector [Tresiba] 5419-25-35A55:00:00.000+00 :00 - Completed - 5221-70-75I24:00 :00.000+00 :00 - Completed 3 ML insulin degludec 200 UN T/ML Pen Injector [Tresiba] 5922-59-50W77:00:00.000+00 :00 - Completed dicyclomine hydrochloride 20 MG Oral Tablet 6467-56-74D17:00:00.000+00 :00 - Completed 3 ML insulin aspart, human 1 00 UNT/ML Pen Injector [NovoLog] 8736-22-42Q86:00:00.000+ 00 :00 - Completed cholestyramine resin 4000 MG Powder for Oral Suspension 2042-66-01J43:00:00.000+00 :00 - Completed dicyclomine hydrochloride 20 MG Oral Tablet 6085-80-65M52:00:00.000+00 :00 - Completed 3 ML insulin aspart, human 1 00 UNT/ML Pen Injector [NovoLog] 0513-89-25X83:00:00.000+ 00 :00 - Completed 3 ML insulin aspart, human 1 00 UNT/ML Pen Injector [NovoLog] 2963-29-49R94:00:00.000+ 00 :00 - Completed prednisone 10 MG Oral Tablet 01-13-12T:00:00.000+00 :00 - Completed Rimegepant 75 MG Disintegrat ing Oral Tablet [Nurtec] 0564-05-37Y17:00:00.000+00 :00 - Completed fluticasone propionate 0.05 MG/ACTUAT Metered Dose Nasal [place] 9298-12-03W35:00:00 .000+00 :00 - Completed Rimegepant 75 MG Disintegrat ing Oral Tablet [Nurtec] 8524-22-90U66:00:00.000+00 :00 - Completed fluconazole 150 MG Oral Tablet 2 392-83-50P08:00:00.000+00 :00 - Completed dicyclomine hydrochloride 20 MG Oral Tablet 0484-03-01Z16:00:00.000+00 :00 - Completed Rimegepant 75 MG Disintegrat ing Oral Tablet [[facility]] 0033-49-74K81:00:00.000+00 :00 - Completed fluconazole 150 MG Oral Tablet 2 093-34-16X10:00:00.000+00 :00 - Completed fluconazole 150 MG Oral Tablet 2 346-74-07S83:00:00.000+00 :00 - Completed fluticasone propionate 0.05 MG/ACTUAT Metered Dose Nasal [place] 7826-58-02Z76:00:00 .000+00 :00 - Completed fluconazole 150 MG Oral Tablet 2 523-76-17Z66:00:00.000+00 :00 - Completed Rimegepant 75 MG Disintegrat ing [facility] 5015-46-81J51:00:00.000+00 :00 - Completed dicyclomine hydrochloride 20 MG Oral Tablet 7996-17-66R12:00:00.000+00 :00 - Completed Rimegepant 75 MG Disintegrat ing Oral Tablet [facility]] 3222-38-49I36:00:00.000+00 :00 - Completed fluticasone propionate 0.05 MG/ACTUAT Metered Dose Nasal [place] 0093-44-75C19:00:00 .000+00 :00 - Completed Rimegepant 75 MG Disintegrat ing Oral Tablet [[facility]] 1655-00-52R55:00:00.000+00 :00 - Completed 24 HR metoprolol succinate 5 0 MG Extended Release Oral Tablet 2064-77-84P70:00:00.000+0 0 :00 - Completed 24 HR metoprolol succinate 5 0 MG Extended Release Oral Tablet 2345-64-81N80:00:00.000+0 0 :00 - Completed topiramate 50 MG Oral Tablet 01-12-08:00:00.000+00 :00 - Completed {28 (norethindrone 0.35 MG O ral Tablet) } Pack 8707-69-65V36:00:00.000+00 :00 - Completed 24 HR metoprolol succinate 5 0 MG Extended Release Oral Tablet 8687-58-36X03:00:00.000+0 0 :00 - Completed 24 HR metoprolol succinate 5 0 MG Extended Release Oral Tablet 2892-18-68R42:00:00.000+0 0 :00 - Completed topiramate 50 MG Oral Tablet 202 12-20-17:00:00.000+00 :00 - Completed {28 (norethindrone 0.35 MG O ral Tablet) } Pack 2982-62-80O94:00:00.000+00 :00 - Completed topiramate 50 MG Oral Tablet 202 01-08-17:00:00.000+00 :00 - Completed topiramate 50 MG Oral Tablet 202 01-14-10:00:00.000+00 :00 - Completed metformin hydrochloride 1000 MG Oral Tablet 0377-62-97R00:00:00.000+00 :00 - Completed atorvastatin 10 MG Oral Tablet 2 734-83-77Z98:00:00.000+00 :00 - Completed atorvastatin 10 MG Oral Tablet 2 758-06-41D59:00:00.000+00 :00 - Completed atorvastatin 10 MG Oral Tablet 2 407-93-68H96:00:00.000+00 :00 - Completed ondansetron 4 MG Oral Tablet 202 01-14-07:00:00.000+00 :00 - Completed lisinopril 5 MG Oral Tablet 2021:00:00.000+00 :00 - Completed atorvastatin 10 MG Oral Tablet 2 939-86-67U15:00:00.000+00 :00 - Completed {28 (norethindrone 0.35 MG O ral Tablet) } Pack 6676-90-13H97:00:00.000+00 :00 - Completed ondansetron 4 MG Oral Tablet 202 12-19-12:00:00.000+00 :00 - Completed ondansetron 4 MG Oral Tablet 202 12-20-01:00:00.000+00 :00 - Completed lisinopril 5 MG Oral Tablet 2022:00:00.000+00 :00 - Completed atorvastatin 10 MG Oral Tablet 2 268-77-72H87:00:00.000+00 :00 - Completed metformin hydrochloride 1000 MG Oral Tablet 4602-08-02N62:00:00.000+00 :00 - Completed cephalexin 500 MG Oral Capsule 2 943-68-30X11:00:00.000+00 :00 - Completed ondansetron 4 MG Oral Tablet 202 01-13-20:00:00.000+00 :00 - Completed aripiprazole 20 MG Oral Tablet 2 765-49-82G18:00:00.000+00 :00 - Completed metformin hydrochloride 1000 MG Oral Tablet 8652-90-60A61:00:00.000+00 :00 - Completed metformin hydrochloride 1000 MG Oral Tablet 0714-23-47D58:00:00.000+00 :00 - Completed lisinopril 5 MG Oral Tablet 2021:00:00.000+00 :00 - Completed lisinopril 5 MG Oral Tablet 2022:00:00.000+00 :00 - Completed {28 (norethindrone 0.35 MG O ral Tablet) } Pack 4431-59-57O75:00:00.000+00 :00 - Completed omeprazole 20 MG Delayed Rel ease Oral Capsule 3382-02-58A52:00:00.000+00 :00 - Completed 12 HR pseudoephedrine hydroc hloride 120 MG Extended Release Oral Tablet 3458-01-36W15:00:0 0.000+00 :00 - Completed ibuprofen 800 MG Oral Tablet 12-19-12:00:00.000+00 :00 - Completed omeprazole 20 MG Delayed Rel ease Oral Capsule 7011-51-23M37:00:00.000+00 :00 - Completed ibuprofen 800 MG Oral Tablet 01-13-07:00:00.000+00 :00 - Completed - 4167-51-66W85:00 :00.000+00 :00 - Completed letrozole 2.5 MG Oral Tablet 01-13-29:00:00.000+00 :00 - Completed ibuprofen 800 MG Oral Tablet 01-12-11:00:00.000+00 :00 - Completed ibuprofen 800 MG Oral Tablet 202 12-20-09:00:00.000+00 :00 - Completed - 6604-70-49H63:00 :00.000+00 :00 - Completed ibuprofen 800 MG Oral Tablet 202 12-22-07:00:00.000+00 :00 - Completed ibuprofen 800 MG Oral Tablet 202 01-09-08:00:00.000+00 :00 - Completed - 0206-99-87U23:00 :00.000+00 :00 - Completed ibuprofen 800 MG Oral Tablet 202 12-21-06:00:00.000+00 :00 - Completed omeprazole 20 MG Delayed Rel ease Oral Capsule 1076-32-17A12:00:00.000+00 :00 - Completed ibuprofen 800 MG Oral Tablet 202 01-10-05:00:00.000+00 :00 - Completed ibuprofen 800 MG Oral Tablet 202 01-14-05:00:00.000+00 :00 - Completed ibuprofen 800 MG Oral Tablet 202 01-09-06:00:00.000+00 :00 - Completed omeprazole 20 MG Delayed Rel ease Oral Capsule 8835-59-24P91:00:00.000+00 :00 - Completed - 2939-62-86H13:00 :00.000+00 :00 - Completed - 1529-15-33N26:00 :00.000+00 :00 - Completed ibuprofen 800 MG Oral Tablet 12-18-15:00:00.000+00 :00 - Completed - 7094-04-47P19:00 :00.000+00 :00 - Completed omeprazole 20 MG Delayed Rel ease Oral Capsule 0652-64-97L56:00:00.000+00 :00 - Completed ibuprofen 800 MG Oral Tablet 202 01-11-05:00:00.000+00 :00 - Completed - 7451-33-06J30:00 :00.000+00 :00 - Completed - 0470-05-87N61:00 :00.000+00 :00 - Completed - 0654-42-12E97:00 :00.000+00 :00 - Completed hydroxyzine hydrochloride 25 MG Oral Tablet 6650-72-48V36:00:00.000+00 :00 - Completed aripiprazole 20 MG Oral Tablet 2 577-39-79Q16:00:00.000+00 :00 - Completed aripiprazole 20 MG Oral Tablet 2 261-77-78M17:00:00.000+00 :00 - Completed metronidazole 500 MG Oral Tablet 7581-76-01F37:00:00.000+00 :00 - Completed spironolactone 100 MG Oral Tablet 1251-22-24H20:00:00.000+00 :00 - Completed ciprofloxacin 500 MG Oral Tablet 2242-04-45U40:00:00.000+00 :00 - Completed spironolactone 100 MG Oral Tablet 5765-44-19T42:00:00.000+00 :00 - Completed metronidazole 500 MG Oral Tablet 3736-81-43F76:00:00.000+00 :00 - Completed ciprofloxacin 500 MG Oral Tablet 0660-35-21P57:00:00.000+00 :00 - Completed hydroxyzine hydrochloride 25 MG Oral Tablet 4154-85-53Z33:00:00.000+00 :00 - Completed clotrimazole 20 MG/ML Vaginal Cream 5159-72-97P44:00:00.000+00 :00 - Completed hydroxyzine hydrochloride 25 MG Oral Tablet 5733-21-62G03:00:00.000+00 :00 - Completed hydroxyzine hydrochloride 25 MG Oral Tablet 4737-94-28N98:00:00.000+00 :00 - Completed spironolactone 100 MG Oral Tablet 0304-23-15F79:00:00.000+00 :00 - Completed - 3661-36-66B64:00 :00.000+00 :00 - Completed metronidazole 500 MG Oral Tablet 6963-90-98H87:00:00.000+00 :00 - Completed spironolactone 100 MG Oral Tablet 8873-51-49R95:00:00.000+00 :00 - Completed spironolactone 100 MG Oral Tablet 3672-22-64Z77:00:00.000+00 :00 - Completed hydroxyzine hydrochloride 25 MG Oral Tablet 3333-75-86F90:00:00.000+00 :00 - Completed - 1262-17-88K26:00 :00.000+00 :00 - Completed - 5436-67-42L73:00 :00.000+00 :00 - Completed - 0179-75-28S39:00 :00.000+00 :00 - Completed - 9008-92-92V12:00 :00.000+00 :00 - Completed - 0419-75-66H65:00 :00.000+00 :00 - Completed - 6429-64-38D72:00 :00.000+00 :00 - Completed - 4114-47-61O48:00 :00.000+00 :00 - Completed - 8938-98-37Y97:00 :00.000+00 :00 - Completed - 7461-34-71P05:00 :00.000+00 :00 - Completed - 8569-67-78P33:00 :00.000+00 :00 - Completed - 9783-58-30Q83:00 :00.000+00 :00 - Completed - 7346-87-85Q92:00 :00.000+00 :00 - Completed - 3013-02-85I43:00 :00.000+00 :00 - Completed - 8786-25-73K20:00 :00.000+00 :00 - Completed oxycodone hydrochloride 5 MG Oral Tablet 6883-32-36D20:00:00.000+00 :00 - Completed - 7603-65-55J81:00 :00.000+00 :00 - Completed - 3004-66-00T03:00 :00.000+00 :00 - Completed amoxicillin 875 MG / clavula carmen 125 MG Oral Tablet 8904-87-03O60:00:00.000+00 :00 - Completed amoxicillin 875 MG / clavula carmen 125 MG Oral Tablet 1509-19-58U26:00:00.000+00 :00 - Completed betamethasone 0.5 MG/ML / clotrimazole 10 MG/ML Topical Cream 0967-18-98R45:00:0 0.000+00 :00 - Completed amoxicillin 875 MG / clavula carmen 125 MG Oral Tablet 6990-48-81P69:00:00.000+00 :00 - Completed betamethasone 0.5 MG/ML / clotrimazole 10 MG/ML Topical Cream 3596-14-90S95:00:0 0.000+00 :00 - Completed acetaminophen 325 MG / hydro codone bitartrate 5 MG Oral Tablet 6817-60-12U84:00:00.000+00 :00 - Completed amoxicillin 875 MG / clavula carmen 125 MG Oral Tablet 0124-31-45A06:00:00.000+00 :00 - Completed Patient Care team information Name Category Status Period Participants - - Proposed period not known -
--- OUTSIDE RECORDS SUMMARY | 2025-01-16 10:50 | XMS_ITS | Referral Summary ---
Author Organization [facility] Address [address] [place] [address] Care Team Providers Care Braided Rug Maker Name Role Phone Dana Roy MD Primary Care Provider [phone] Allergies Active Allergy Reactions Criticality Noted Date [...] 10/10 Insulin dependent type 2 diabetes mellitus 10/21 Ileus 10/20/2023 Moderate malnutrition 03/01/2022 Abdominal pain 02/26/2022 [...] on file Legal Sex Female 5:42 PM RESEARCH KENNEL SUPERVISOR Gender Identity Not on file Sexual Orientation Not on file Last Filed Vital Signs Vital Sign Reading Time Taken Comments Blood Pressure 115/70 10/21/2023 3:03 PM RESEARCH KENNEL SUPERVISOR Pulse 93 10/21/2023 3:03 PM RESEARCH KENNEL SUPERVISOR Temperature 36.1 C (97 F) 10/21/2023 3:03 PM RESEARCH KENNEL SUPERVISOR Respiratory Rate 18 10/21/2023 3:03 PM RESEARCH KENNEL SUPERVISOR Oxygen Saturation 95% 10/21/2023 3:03 PM RESEARCH KENNEL SUPERVISOR Inhaled Oxygen Concentration - - Weight 150.1 kg (331 lb) 10/20/2023 3:20 AM RESEARCH KENNEL SUPERVISOR Height 167.6 cm (5' 6 ) 10/20/2023 3:20 AM RESEARCH KENNEL SUPERVISOR Body Mass Index 53.42 10/20/2023 3:20 AM RESEARCH KENNEL SUPERVISOR Plan of Treatment Not on file Medical Devices Implanted Type Area Straight Ruling Machine Operator Device Identifier Shelf Expiration Date Model / Serial / Lot [employer] Concetta 192-123 Polaris Ultra Nautilus 5fr 2.1fr 26cm 2 Durometer Taper Tip Low Latex Free - [id number] Implanted:Qty: 1 on 10/01/2018 by Jaden Olivera MD at [facility] Stent Right: Ureter [place] [employer] Concetta 06/14/2021 192-123 / / [id number] Procedures Procedure Name Priority Date/Time Associated Diagnosis Comments EGFR Routine 10/20/2023 6:35 AM RESEARCH KENNEL SUPERVISOR from Last 3 Months or Most Recently Relevant to Health Maintenance Results * eGFR (10/20/2023 6:35 AM RESEARCH KENNEL SUPERVISOR) eGFR 79 mL/min/1. 73 m2 EDWINA FROST [...] last reviewed 2021. Blood 10/20/2023 6:35 AM RESEARCH KENNEL SUPERVISOR 10/20/2023 6:37 AM RESEARCH KENNEL SUPERVISOR Cece Solorio MD LAB BLOOD ORDERABLES Fin al Result [facility]) 1 [facility] Department [place] [address] from Last 3 Months or Most Recently Relevant to Health Maintenance Insurance [facility] H[facility]/PPO Address: [address] [address] [place] [address] [facility] PPO IDPA IDPA [facility] HMO Advance Directives For more information, please contact: [phone] * Full Code (Latest Code Status on File) Date Activated Date Inactivated Comments 10/20/2023 3:21 AM 10/21/2023 10:45 PM * Full Code Date Activated Date Inactivated Comments 02/26/2022 8:54 PM 03/01/2022 5:15 PM * Full Code Date Activated Date Inactivated Comments 10/01/2018 3:53 AM 10/01/2018 7:17 PM Care Teams Braided Rug Maker Relationship Specialty Start Date End Date Dana Roy MD PCP - General Family Medicine 10/19/23
--- OUTSIDE RECORDS SUMMARY | 2025-01-16 10:50 | XMS_ITS | Encounter Summary ---
Author Organization [facility] Address [address] [place] [address] Care Team Providers Care Panel Machine Setter Name Role Phone Dana Roy MD Primary Care Provider [phone] Encounter Details Date Type Department Care Team (Late Contact Info) Description 01/14/2025 External Device Data [place] ABSTRACTION Provider, Abstract NO ADDRESS ON FILE Social History Tobacco Use Types Packs/Day Years Used Date Smoking Tobacco: Former Cigarettes 0.2 1 Q uit: 10/03/2024 Alcohol Use Standard Drinks/Week Comments Yes 0 (1 standard drink = 0.6 oz pure alcohol) occassionally holidays/ special occasions Comments Unknown Sex and Gender Information Value Date Recorded Sex Assigned at Not on file Legal Sex Female 4:13 PM ACUTE CARE NURSE PRACTITIONER Gender Identity Not on file Sexual Orientation Not on file documented as of this encounter Plan of Treatment Upcoming Encounters Date Type Department Care Team (Late Contact Info) Description 01/17/2025 Orders Only [facility] Oncology and Hematology [facility] Benjy Molina [address] [place] [id number] Phi Yates MD [address] [place], [place] [address] [address] [place] [phone] Leukocytosis, unspecified type 03/11/2025 10:00 AM CDT Office Visit [facility] [address] [place] [address] Phi Yates MD [facility] [address] [place] [phone] documented as of this encounter Visit Diagnoses Not on filedocumented in this encounter Care Teams Panel Machine Setter Relationship Specialty Start Date End Date Dana Roy MD [address] [place] [address] PCP - General Family Practice 12/13/24 documented as of this encounter
--- OUTSIDE RECORDS SUMMARY | 2025-01-16 10:50 | XMS_ITS | Clinical Summary ---
Author Organization [facility] Address [address] [place] [address] Care Team Providers Care Sterile Processing Technician Name Role Phone Dana Roy MD Primary Care Provider [phone] Allergies Active Allergy Reactions Criticality Noted Date [...] Date Comments Infection of wound due to ms thicillin resistant Staphylococcus aureus (MRSA) 01/2015 Obesity [...] on file Legal Sex Female 5:42 PM SPECIMEN TRANSPORTER Gender Identity Not on file Sexual Orientation Not on file Obstetrics History Last Filed Vital Signs Vital Sign Reading Time Taken Comments Blood Pressure 115/70 10/21/2023 3:03 PM SPECIMEN TRANSPORTER Pulse 93 10/21/2023 3:03 PM SPECIMEN TRANSPORTER Temperature 36.1 C (97 F) 10/21/2023 3:03 PM SPECIMEN TRANSPORTER Respiratory Rate 18 10/21/2023 3:03 PM SPECIMEN TRANSPORTER Oxygen Saturation 95% 10/21/2023 3:03 PM SPECIMEN TRANSPORTER Inhaled Oxygen Concentration - - Weight 150.1 kg (331 lb) 10/20/2023 3:20 AM SPECIMEN TRANSPORTER Height 167.6 cm (5' 6 ) 10/20/2023 3:20 AM SPECIMEN TRANSPORTER Body Mass Index 53.42 10/20/2023 3:20 AM SPECIMEN TRANSPORTER Plan of Treatment Health Maintenance Due Date [...] this topic Medical Devices Implanted Type Area Independent Living Specialist Device Identifier Shelf Expiration Date Model / Serial / Lot [place] [employer] Concetta 192-123 Polaris Ultra Nautilus 5fr 2.1fr 26cm 2 Durometer Taper Tip Low Latex Free - [id number] Implanted:Qty: 1 on 10/01/2018 by Jaden Olivera MD at [facility] Stent Right: Ureter [place] [employer] Con[employer]etta 06/14/2021 192-123 / / [id number] Procedures Procedure Name Priority Date/Time Associated Diagnosis Comments EGFR Routine 10/20/2023 6:35 AM SPECIMEN TRANSPORTER from Last 3 Months or Most Recently Relevant to Health Maintenance Results * eGFR (10/20/2023 6:35 AM SPECIMEN TRANSPORTER) eGFR 79 mL/min/1. 73 m2 EDWINA FROST [...] last reviewed 2021. Blood 10/20/2023 6:35 AM SPECIMEN TRANSPORTER 10/20/2023 6:37 AM SPECIMEN TRANSPORTER us Cece Solorio MD LAB BLOOD ORDERABLES Fin al Result [facility] [place] [address] [place] [address] from Last 3 Months or Most Recently Relevant to Health Maintenance Insurance [facility]/PPO Address: [facility] [id number] [place] [address] [facility] IDPA [facility]PA [facility] Advance Directives For more information, please contact: [phone] * Full Code (Latest Code Status on File) Date Activated Date Inactivated Comments 10/20/2023 3:21 AM 10/21/2023 10:45 PM * Full Code Date Activated Date Inactivated Comments 02/26/2022 8:54 PM 03/01/2022 5:15 PM * Full Code Date Activated Date Inactivated Comments 10/01/2018 3:53 AM 10/01/2018 7:17 PM Care Teams Sterile Processing Technician Relationship Specialty Start Date End Date Dana Roy MD PCP - General Family Medicine 10/19/23
--- OUTSIDE RECORDS SUMMARY | 2025-01-16 10:50 | XMS_ITS | Clinical Summary ---
Author Organization [facility] Address [address] [place] [address] Care Team Providers Care Backbreaker Name Role Phone Dana Roy MD Primary Care Provider [phone] Allergies Active Allergy Reactions Criticality Noted Date [...] Encounters Date Type Department Care Team Description 01/14/2025 External Device Data STL ABSTRACTION Provider, Abstract 01/11/2025 External Device Data STL ABSTRACTION Provider, Abstract 01/03/2025 Orders Only [facility] Oncology and Hematology - [address] [place] [id number] Phi Yates MD Leukocytosis, unspecified type 12/28/2024 External Device Data STL ABSTRACTION Provider, Abstract 12/21/2024 External Device Data STL ABSTRACTION Provider, Abstract 12/20/2024 Orders Only [facility] Oncology and Hematology - [address] [place] [address] Phi Yates MD Leukocytosis, unspecified type 12/13/2024 Orders Only [facility] Oncology and Hematology - [place] [address] [place] [address] Phi Yates MD 12/09/2024 Orders Only [facility] Oncology and Hematology - [address] [place] [address] Phi Yates MD Leukocytosis, unspecified type (Primary Dx) 12/07/2024 External Device Data STL ABSTRACTION Provider, Abstract 12/02/2024 10:00 AM SSRS REPORT DEVELOPER Office Visit [facility] On[facility] [address] [place] [address] Phi Yates MD Leukocytosis, unspecified type (Primary Dx) 12/01/2024 External Device Data STL ABSTRACTION Provider, Abstract 12/01/2024 External Device Data STL ABSTRACTION Provider, Abstract 11/24/2024 External Device Data STL ABSTRACTION Provider, Abstract 11/14/2024 Telephone [facility] [address] [place] [address] Phi Yates MD Lab Results 10/19/2024 External Device Data STL ABSTRACTION Provider, Abstract 10/19/2024 Orders Only [facility] [address] [place] [address] Phi Yates MD from Last 3 Months Family History Medical [...] on file Legal Sex Female 4:13 PM SSRS REPORT DEVELOPER Gender Identity Not on file Sexual Orientation Not on file Last Filed Vital Signs Vital Sign Reading Time Taken Comments Blood Pressure 123/74 12/02/2024 10:03 AM SSRS REPORT DEVELOPER Pulse 103 12/02/2024 10:03 AM SSRS REPORT DEVELOPER Temperature 36.2 C (97.1 F) 12/02/2024 10:03 AM SSRS REPORT DEVELOPER Respiratory Rate 16 12/02/2024 10:03 AM SSRS REPORT DEVELOPER Oxygen Saturation 92% 10/13/2024 3:11 PM SSRS REPORT DEVELOPER Inhaled Oxygen Concentration - - Weight 161.5 kg (356 lb) 12/02/2024 10:03 AM SSRS REPORT DEVELOPER Height 170.2 cm (5' 7 ) 10/13/2024 3:11 PM SSRS REPORT DEVELOPER Body Mass Index 55.76 10/13/2024 3:11 PM SSRS REPORT DEVELOPER Plan of Treatment Upcoming Encounters Date Type Department Care Team (Late st Contact Info) Description 01/17/2025 Orders Only [facility] Oncology [address] [place] [phone] Phi Yates MD [address] [place] [phone] Leukocytosis, unspecified type 03/11/2025 10:00 AM CDT Office Visit [facility] On[facility] [address] [place], [place] [address]m[address]on[address] [place] [phone] Pih Yates MD [address] [place] [address] Health Maintenance Due Date Last [...] CBC WITH DIFFERENTIAL Routine 12/10/2024 9:07 AM SSRS REPORT DEVELOPER from Last 3 Months Results * CBC WITH DIFFERENTIAL (12/10/2024 9:07 AM 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
--- OUTSIDE RECORDS SUMMARY | 2025-01-16 10:50 | XMS_ITS | Clinical Summary ---
Author Organization [facility] Address [address] [place] [address] Phone Care Team Providers Care Floor Cleaner Name Role Phone Dana Roy MD Primary Care Provider [phone] Allergies Active Allergy Reactions Criticality Noted Date [...] to complete this topic Insurance MEDICAID [place] [employer] [facility] Care Teams Floor Cleaner Relationship Specialty Start Date End Date Dana Roy MD [address] [place] [address] PCP - General Family Medicine 03/21/21
--- OUTSIDE RECORDS SUMMARY | 2025-01-16 10:50 | XMS_ITS | Data Portability ---
Author Organization [facility] Address [address] [place] [address] Care Team Providers Care Crew Foreman Name Role Phone ROSALIND GODFREY Primary Care Provider ROBBIN GRACE OTHER ANA LILIA OBRIEN OTHER Assessment Encounter Date Assessment Date Assessment LastModified by Organization Details LastModified Time 11/24/2024 11/24/2024 Annual gynecological exam performed. Patient will come back in a year unless there are new symptoms. Not available 11/24/2024 14:27:17 Plan of Treatment Reminders Order Date Submit Date Provider Last Modified By Organization Details Last Modified Time Details Appointments None recorded. Lab 17-hydroxyp rogesterone , QN, serum 2024 025 [facility] (Lab), [address] [place], [address], 5 21:38:29 dhea-sulfat e, serum 2024 025 [facility] (Lab), [address] [place], [address], 5 21:38:27 estradiol, serum 2024 025 [facility] (Lab), [address] [place], [address], 5 21:38:28 FSH (follicle-s timulating hormone), serum 2024 025 [facility] (Lab), [address], [place], [address], 5 21:38:29 HbA1c (hemoglobin A1c), blood [address] [place] [address] (Lab), [address], [place], [address], 5 21:38:27 lh (luteinizin g hormone), serum [address] [place] [address] (Lab), [address] [facility], [place], [address], 5 21:38:29 progesteron e, serum [address] [place] [address] (Lab), [address] [facility], [place], [address], 5 21:38:28 prolactin, serum [address] [place] [address] (Lab), [address] [facility], [place], [address], 5 21:38:28 shbg (sex hormone-bin ding globulin), serum [address] [place] [address] (Lab), [address] [place], [address], 5 21:38:26 TSH, serum or plasma [address] [place] [address] (Lab), [address] [place], [address], 5 21:38:27 testosteron e free/testos terone total, ratio, serum 2024 025 [facility] (Lab), [address] [place], [address], 5 21:38:29 Referral None recorded. Procedures None recorded. Surgeries None recorded. Imaging US, pelvis 2024 [address], [address], [place], [address], 5 21:13:52 US, transvagina l [address] [facility] [address], [place], [address], 5 21:13:52 MAMMO, screening, digital, bilateral 2024 025 [facility] (Mammography) , [address], [place], [address], 5 04:08:40 US, pelvis, complete 2024 025 [facility], [address], [place], [address], 5 04:01:33 Medication Orders Manjula 0.35 mg tablet 2024 025 [facility] [address], [address], 16:04:21 Patient TargetsNo targets recorded. Patient InstructionsNo [...] Autho romana g Provi bereket: Pina Saleh, LEAD RECOVERER Colle cted: 11/24 1525 Order ing Locat [...] epith elial Toñito knowles or Андрей currie ([facility]) . Elect noel hinds ember d by Nima Carey, CT on 2024 at 0949 [employer] ----- ----- ----- ----- ----- ----- ----- [...] as clini caren [place] nted. Not Available [facility] (Lab) [address] [facility], [place], [address], 12/01/2024 10:53:25 11/24/19 25 11/24/2024 HUMAN SEX HORMO NE QUAN NG GLOBU CORONA sex hormone binding globulin 32.1 nmole s/L 18.2-1 35.5 Not Available [facility] (Lab) [address] [place], [address], 12/01/2024 21:38:26 11/24/19 25 11/24/2024 TSH, REFLE X FREE T4 TSH 1.19 uIU/m L 0.30-5 .33 Not Available [facility] (Lab) [address] [facility], [place], [address], 12/01/2024 21:38:27 11/24/19 25 11/24/2024 HEMOG LOBIN [...] >8.0% Actio n sugge sted Not Available [facility] (Lab) [address] [facility], [place], [address], 12/01/2024 21:38:27 11/24/19 25 11/24/2024 DHEA SULFA TE DHEA-sulfate 48 ug/dL Femal e Range s Age(y ) Range (ug/d L) 10-15 34-28 0 15-20 65-36 8 20-25 148-4 07 25-35 99-34 0 35-45 61-33 7 45-55 35-25 6 55-65 19-20 5 65-75 9-246 > 75 12-15 4 Not Available [facility] (Lab) [address] [facility], [place], [address], 12/01/2024 21:38:27 11/24/19 25 11/24/2024 ESTRA DIOL [...] 154-3 243 pg/mL 2nd Trime ster 1561- 84631 pg/mL 3rd Trime ster 8525- >3000 0 pg/mL Not Available [facility] (Lab) [address] , [place], [address], 12/01/2024 21:38:28 11/24/19 25 11/24/2024 PROLA CTIN prolactin, total 12.70 NG/mL 4.79-2 3.30 This assay was perfo rmed using [employer] ratio n reage nts and test kits. Value s obtai best with other assay metho ds or kits canno t be used inter [facility] . Not Available [facility] (Lab) [address] [place], [address], 12/01/2024 21:38:28 11/24/19 25 11/24/2024 PROGE STERO NE progesterone 0.25 NG/mL This assay was perfo rmed using [employer] ratio n reage nts and test kits. Value s obtai best with other assay metho ds or kits canno t be used inter [facility] . Femal e Proge stero ne Range s: Folli cular phase 0.06- 0.89 ng/mL Ovula tion phase 0.12- 12.00 ng/mL Lutea l phase 1.83- 23.90 ng/mL Postm enopa usal <0.05 -0.13 ng/mL Healt hy Pregn ant Women 1st Trime ster 11.0- 44.30 2nd Trime ster 25.40 -83.3 0 3rd Trime ster 58.70 -214. 00 Not Available [facility] (Lab) [address] [facility], [place], [address], 12/01/2024 21:38:28 11/24/19 25 11/24/2024 LH (LUTE NIZIN G HORMO NE) LH 2.0 mIU/m L This assay was perfo rmed using [employer] ratio n reage nts and test kits. Value s obtai best with other assay metho ds or kits canno t be used inter [facility] . Femal es Mid-F ollic ular: 2.4-1 2.6 mIU/m L Mid-C ycle: 14.0- 95.6 mIU/m L Mid-L uteal : 1.0-1 1.4 mIU/m L Postm enopa use: 7.7-5 8.5 mIU/m L Not Available [facility] (Lab) [address] [facility], [place], [address], 12/01/2024 21:38:29 11/24/19 25 11/24/2024 FSH FSH [...] use: 25.8- 134.8 mIU/m L Not Available [facility] (Lab) [address] [facility], [place], [address], 12/01/2024 21:38:29 11/24/19 25 11/24/2024 TESTO STERO NE, FREE( DIALY SIS) AND TOTAL (LC/M S/MS) testosterone , total 24 NG/dL 2-45 For addit ional infor amada roberson e refer to http: //[facility] juma knowles.que stdia gnost ics.c om/fa q/ Total Testo stero neLCM SMSFA Q165 (This link is being provi ded for infor dilma cummings/ educa verónica l purpo ses only. ) This test was devel oped and its dominga tical perfo rmanc e delmy cteri stics have been deter mined by [facility] [place] It has not been clear ed or appro alex by the U.S. Food and Drug Admin istra tion. This assay has been valid ated pursu ant to the CLIA regul ation s and is used for clini landon purpo ses. Not Available [facility] (Lab) [address] [facility], [place], [address], 12/01/2024 21:38:29 11/24/19 25 11/24/2024 TESTO STERO NE, FREE( DIALY SIS) AND TOTAL (LC/M S/MS) testosterone , free 4.1 pg/mL 0.1-6. 4 This test was devel oped and its dominga tical perfo rmanc e delmy cteri stics have been deter mined by [employer] [facility] [place], [place]. It has not been clear ed or appro alex by the U.S. Food and Drug Admin istra tion. This assay has been valid ated pursu ant to the CLIA regul ation s and is used for clini landon purpo ses. Perfo rming Organ izati on Infor [facility] n: Site ID: AMD Name: [employer] angelica traylor [facility] Addre ss: [id number] [place], [place] Direc tor: Nely Carrero MD PhD Not Available [facility] (Lab) [address] [facility], [place], [address], 12/01/2024 21:38:29 11/24/19 25 11/24/2024 17-OH PROGE [...] cteri stics have been deter mined by [employer] [facility]. It has not been clear ed or appro alex by FDA. This assay has been valid ated pursu ant to the CLIA regul ation s and is used for clini landon purpo ses. Perfo rming Organ izati on Infor matio n: Site ID: EZ Name: James dominguez s/Christiano shena [facility]-S darek wang , Addre ss: [id number] [place] [address] Direc tor: Fernanda cobos MD,Ph D,TERESA Not Available [facility] (Lab) [address] [facility], [place], [address], 12/01/2024 21:38:29 12/02/19 25 12/02/2024 US, pelvi s No observ ation record ed. [email or web address] [place] [address], [place], [address], 12/02/2024 13:58:23 12/02/19 25 12/02/2024 US, trans vagin al No observ ation record ed. [email or web address] [place] [address], [place], [address], 12/02/2024 13:58:36 12/02/19 25 12/02/2024 US, pelvi s No observ ation record ed. jose a [address] [facility], [place], [address], 12/14/2024 09:01:22 Result Notes None recorded. Problems Name Problem SNOMED Code Status Onset Date Resolution Date Notes Provider Name and Address Organization Details Recorded Time Body mass index 30+ - obesity 856591238 Active 2014 Body mass index (BMI) 50-59.9 , adult;Rec orded Elsewhere : No Locati on: [facility] So urce: EHR Chron ic: N Practic e ID: 0001 Bill able Time: 03:15:00 PM Not Available [facility] 0 14:28:44 Amenorrhe a 68527697 Active 2015 Amenorrhe a;Recorde d Elsewhere : No Locati on: [facility] So urce: EHR Chron ic: N Practic e ID: 0001 Bill able Time: 04:45:00 PM Not Available [facility] 0 14:28:[address] Concept Active 2014 Encntr for general adult medical exam w/o abnormal findings; Recorded Elsewhere : No Locati on: [facility] So urce: EHR Chron ic: N Practic e ID: 0001 Bill able Time: 03:15:00 PM Not Available [facility] 0 14:28:44 Urinary tract infectiou s disease 28148171 Active 2015 Urinary tract infection , site not specified ;Recorded Elsewhere : No Locati on: [facility] So urce: EHR Chron ic: N Practic e ID: 0001 Bill able Time: 01:00:00 PM Not Available [facility] 0 14:28:44 test negative 304041478 Active 2015 Encounter for test, result negative; Recorded Elsewhere : No Locati on: [facility] So urce: EHR Chron ic: N Practic e ID: 0001 Bill able Time: 04:30:00 PM Not Available [facility] 0 14:28:44 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 [id number] 642836 Active 2014 Cervical low risk HPV DNA test positive; Recorded Elsewhere : No Locati on: [facility] So urce: EHR Chron ic: N Practic e ID: 0001 Bill able Time: 03:15:00 PM Not Available [facility] 0 14:28:[address] Concept Active 2014 Encntr for shoulder pad molder exam (general) (routine) w/o abn findings; Recorded Elsewhere : No Locati on: [facility] So urce: EHR Chron ic: N Practic e ID: 0001 Bill able Time: 03:15:00 PM Not Available [facility] 0 14:28:44 Pelvic and perineal pain 938209517 Active 2015 Pelvic and perineal pain;Olayinka rded Elsewhere : No Locati on: [facility] So urce: EHR Chron ic: N Practic e ID: 0001 Bill able Time: 05:00:00 PM Not Available [facility] 0 14:28:44 Hypertens damion disorder 87096340 Active 2015 High blood pressure; Recorded Elsewhere : No Locati on: [facility] So urce: EHR Chron ic: N Practic e ID: 0001 Bill able Time: 04:45:00 PM Not Available [facility] 0 14:28:44 Reproduct damion care managemen t Active 2014 Encounter for other procreati ve managemen t;Recorde d Elsewhere : No Locati on: [facility] So urce: EHR Chron ic: N Practic e ID: 0001 Bill able Time: 03:00:00 PM Not Available [facility] 0 14:28:45 Finding of urine substance level Active 2015 Proteinur ia, unspecifi ed;Practi ce ID: 0001 Not Available [facility] 0 14:28:46 Problem Notes None recorded. Procedures Surgical History Date Name Laterality Status Provider Name and Address Organization Details Recorded Time 025 Date of Last Colonoscopy completed Gisselle Yarbrough [facility] 12/02/2024 18:14:47 025 Date of Last Pap Smear completed Jes Moya [facility] 12/13/2024 15:33:34 Cholecystectomy completed [facility] 11/24/2024 14:44:06 operation on fallopian tube completed [facility] 11/24/2024 14:44:34 Dilation and Curettage completed [facility] 11/24/2024 14:44:58 left salpingectomy completed JOSE G Soto [address], [place], [address], [facility] 11/24/2024 15:11:00 Removal of ovarian cyst(s) completed JOSE G Soto [address], [place], [address], [facility] 11/24/2024 15:11:12 uterine myomectomy completed JOSE G Soto [address], [place], [address], [place] [facility] 11/24/2024 15:20:28 Imaging Results Imaging Date Name Status LastModified by Organization Details LastModified Time 12/02/2024 US, pelvis completed [email or web address] [place] [address], [place], [address], 12/02/2024 13:58:23 12/02/2024 US, transvaginal completed [email or web address] [place] [address], [place], [address], 12/02/2024 13:58:36 12/02/2024 US, pelvis completed lllazaro [address], [place], [address], 12/14/2024 09:01:22 Procedure Notes None recorded. Medical Equipment None Reported. Allergies Allergen ID Allergen Name Allergen Category Reaction Reaction Severity Criticality Documentation Date Start Date Code Code System Note Provider Name and Address Organization Details Recorded Time 85116 Substance with sulfonami de structure and antibacte rial mechanism of action (substanc e) medicatio n anaphylax is Not available Not available 10/27/2020 15702 8003 SNOMED React ion: Anaph ylaxi s; Comme nt: [facility]; Not Available [facility] 0 14:14:59 70245 clindamyc in Not available Not available Not available Not available 11/24/2024 2582 RxNorm Sharon burns, [facility] 5 14:32:12 Medications Name Sig [...] Elsewher e: Yes Loca tion: [facility] odify By: lindsay Tam r DateTime : [...] Not Available Not Available No t Available metronida zole 500 mg tablet TAKE [...] Elsewher e: Yes Loca tion: [facility] odify By: lindsay Tam r DateTime : 08/14/20 03:00:00 PM Not Available Not Available Not Available Macrobid 100 mg capsule take 1 capsule by oral route every 12 hours with food 09/02 completed Prescrib ed Elsewher e: No Locat ion: [facility] odify By: lindsay Tam r DateTime : 04/25/20 16 01:00:00 PM Not Available Not Available Not Available meloxicam 7.5 mg tablet take 1 tablet by oral route every day 11/24 completed Prescrib ed Elsewher e: Yes Loca tion: [facility] odify By: lindsay taylor DateTime : 08/14/20 15 03:00:00 PM Not Available Not Available Not Available cephalexi n 500 mg capsule TAKE 1 CAPSULE BY MOUTH FOUR TIMES DAILY FOR 10 DAYS active Not Available Not Available No t Available metformin 1,000 mg tablet TAKE 1 TABLET BY MOUTH TWICE A DAY 11/24 completed Not Available Not Available Not Available dexametha sone 4 mg tablet 8 MG (2 X 4 MG) ORALLY ONCE FOR 1 DAY TAKE INSTRUCT ED THE EVENING PRIOR TO AM CORTISOL BLOOD DRAW active Not Available Not Available No t Available Loestrin 20 (21) 1 mg-20 mcg tablet take 1 tablet by oral route every day 2015 active Prescrib ed Elsewher e: No Locat ion: [facility] odify By: shanique kinney DateTime : 09/12/20 16 04:00:00 PM Not Available Not Available Not Available Ar 128 2 % eye drops 12/13 completed Prescrib ed Elsewher e: Yes Loca tion: [facility] odify By: lindsay taylor DateTime : 08/14/20 15 03:00:00 PM Not [...] 2 % topical ointment APPLY TOPICALL Y TO THE AFFECTED AREA TWICE DAILY active Not Available Not Available No [...] route every day 11/24 completed [facility] Loca tion: [facility] odify By: lindsay taylor DateTime : 08/14/20 [...] ed Elsewher e: Yes Loca tion: [facility] odify By: lindsay Tam r DateTime : [...] ed Elsewher e: Yes Loca tion: [facility] odify By: lindsay Tam r DateTime : [...] Updated DateTime 11/24/2024 170.18 cm 56.4 kg/m2 617658.6 9 g 158 mm[Hg] 73 mm[Hg] Sharonprasanna Hernandezney [facility] 14:31:46 Date Recorded Body height Body mass index (BMI) Body weight Systolic blood pressure Diastolic blood pressure Provider Name and Address Organization Details Last Updated DateTime 12/13/2024 170.18 cm 55.6 kg/m2 705066.2 9 g 150 mm[Hg] 88 mm[Hg] Jes Moya [facility] 15:30:53 Social History Question Answer Notes LastModified by Organizat ion Details LastModified Time Tobacco Smoking Status Former Smoker Sharonprasanna Hernandezbhavin burns [facility] 11/24/2024 14:43:50 Do You Have An Advance Directive? No [email or web address] Information not available 12/02/2024 What Is Your Level Of Alcohol Consumption? Occasional [email or web address] Information not available 12/02/2024 How Many Years Have You Consumed Alcohol? 21 Information not available 12/13/2024 Are You Blind Or Do You Have Difficulty Seeing? No [email or web address] Information not available 12/02/2024 What Is Your Level Of Caffeine Consumption? Moderate [email or web address] Information not available 12/02/2024 How Much Tobacco Do You Chew? None [email or web address] Information not available 12/02/2024 In The 14 Days Before Symptom Onset, Have You Had Close Contact With A Laboratory-confir med COVID-19 While That Case Was Ill? No [email or web address] Information not available 11/24/2024 In The 14 Days Before Symptom Onset, Have You Had Close Contact With A Person Who Is Under Investigation For COVID-19 While That Person Was Ill? No [email or web address] Information not available 11/24/2024 Have You Been To An Area Known To Be High Risk For COVID-19? No Information not available 11/24/2024 Are You Deaf Or Do You Have Serious Difficulty Hearing? No [email or web address] Information not available 12/02/2024 What Type Of Diet Are You Following? REGULAR [email or web address] Information not available 12/02/2024 What Is The Highest Grade Or Level Of School You Have Completed Or The Highest Degree You Have Received? 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 Yes [email or web address] Information not available 12/02/2024 Do You Use Protection During Sex? No [email or web address] Information not available 12/02/2024 Do You Use Your Seat Belt Or Car Seat Routinely? Yes [email or web address] Information not available 12/02/2024 Do You Have Smoke And Carbon Monoxide Detectors In Your Home? Yes Information not available 12/02/2024 At What Age Did You Start Smoking Tobacco? 11 [email or web address] Information not available 12/02/2024 How Much Tobacco Do You Smoke? No [email or web address] Information not available 12/02/2024 Do You Feel Stressed (tense, Restless, Nervous, Or Anxious, Or Unable To Sleep At Night)? [id number] [email or web address] Information not available 12/02/2024 Do You Use Any Illicit Or Recreational Drugs? No Information not available 12/02/2024 Do You Use Sunscreen Routinely? Yes [email or web address] Information not available 12/02/2024 How Many Years Have You Smoked Tobacco? 5 Information not available 12/13/2024 Have You Used IV Drugs? No [email or web address] Information not available 12/02/2024 Sex: Unknown Functional Status Question Answer Note LastModified by Organization D etails LastModified Time Are you able to walk? YESWOREST [email or web address] Information not available 12/02/2024 What is your exercise level? None [email or web address] Information not available 12/02/2024 Mental Status None recorded. Family History Relationship Description Onset Age of this Age Resolved Age Notes LastModified by Organization Details LastModified Time Mother Heart disease [email or web address] Not available 2024 14:48:30 Mother Mental disorder [email or web address] Not available 2024 14:49:47 Father Diabetes mellitus [email or web address] Not available 2024 14:48:51 Father Mental disorder [email or web address] Not available 2024 14:49:47 Brother Diabetes mellitus [email or web address] Not available 2024 14:48:51 Brother Mental disorder [email or web address] Not available 2024 14:49:47 Notes:Brother: High choleste [...] N Drug/Latex Allergies/Reactions N Blood Transfusion N Lung Disease N Dermatologic Disorders N Defects or Inherited Disease N Breast [...] SNOMED-CT Code Diagnosis ICD10 Code Diagnosis Note [id number] JOSE G Soto [place] [address] [address] 11/24/2024 13:53:36 11/24/2024 15:31:24 Gynecologic examination 52278370 Z01.419 WWEPap - done todaySTI screen - [...] All questions have been answered. Irregular periods 411694 07 N92.6 We discussed amenorrhea . We [...] plan of care. Reproducti ve care management 535137613 Z31.9 Screening for malignant neoplasm of breast 165732078 Z12.39 Polycystic ovary syndrome 493544652 E28.2 [id number] Lori Parkhill [facility] [address] [address] 12/02/2024 12:14:15 12/02/2024 13:18:08 Irregular periods 35882656 N92.6 [id number] Luis Hale MD [place] [address] [address] 12/13/2024 14:45:03 12/13/2024 16:23:58 Abnormal uterine bleeding 2072802486 9100 N93.9 39-year-ol d female presents to [...] Luna Member ID Guarantor Name 11/24/2024 1 [place] [facility] Angela Duncan [id number] Angela Duncan 11/24/2024 1 [employer] - CHOICE (POS II) [id number] Angela Dnucan [id number] Angela Duncan 12/02/2024 1 [place] [facility] Angela Duncan [id number] Angela Duncan 12/02/2024 1 [employer] - CHOICE (POS II) [id number] Angela Duncan [id number] Angela Duncan 12/13/2024 1 [place] [facility] Angela Duncan [id number] Angela Duncan Notes Date Note Type Note [...] was on OCPs. Last withdrawal bleed 08/2024Was [facility] and saw [facility] [place] (had labs/pelvic u/s done 1 [...] from previous OBGYN JOSE G Soto [address], [place], [address], [place] [facility] 11/24/2024 15:30:34 12/13/2024 text/html 39-year-old [...] total. Luis Hale MD [address], [place], [address], [place] [facility] 12/13/2024 16:21:15 OBGyn Episode No OBEpisode recorded.
--- OUTSIDE RECORDS SUMMARY | 2025-01-16 10:51 | XMS_ITS ---
Author Organization Unknown Medications Medication Instructions Effective Dates (start - stop) Status empagliflozin 25 MG Oral Tab let [Jardiance] 9527-59-59X76:00:00.000+00 :00 - Completed empagliflozin 25 MG Oral Tab let [Jardiance] 5181-90-55G36:00:00.000+00 :00 - Completed - 0994-69-35Y04:00 :00.000+00 :00 - Completed empagliflozin 25 MG Oral Tab let [Jardiance] 8914-18-01U11:00:00.000+00 :00 - Completed - 1396-89-45G64:00 :00.000+00 :00 - Completed empagliflozin 25 MG Oral Tab let [Jardiance] 6044-38-68K87:00:00.000+00 :00 - Completed - 4490-38-94F17:00 :00.000+00 :00 - Completed - 9201-03-71D40:00 :00.000+00 :00 - Completed - 6871-36-97V88:00 :00.000+00 :00 - Completed - 9961-32-33S21:00 :00.000+00 :00 - Completed empagliflozin 25 MG Oral Tab let [Jardiance] 3098-92-05D68:00:00.000+00 :00 - Completed - 7992-24-70Y18:00 :00.000+00 :00 - Completed - 2516-88-85M66:00 :00.000+00 :00 - Completed - 0310-67-34L86:00 :00.000+00 :00 - Completed - 2704-07-40C78:00 :00.000+00 :00 - Completed 3 ML semaglutide 1.34 MG/ML Pen Injector [Ozempic] 8917-00-63E39:00:00.000+00 :00 - Completed 3 ML insulin degludec 200 UN T/ML Pen Injector [Tresiba] 2283-48-81B63:00:00.000+00 :00 - Completed dicyclomine hydrochloride 20 MG Oral Tablet 2405-77-33W78:00:00.000+00 :00 - Completed 3 ML insulin degludec 200 UN T/ML Pen Injector [Tresiba] 8167-51-02Y22:00:00.000+00 :00 - Completed - 7467-11-70P73:00 :00.000+00 :00 - Completed 3 ML insulin aspart, human 1 00 UNT/ML Pen Injector [NovoLog] 4683-87-85J48:00:00.000+ 00 :00 - Completed 3 ML insulin degludec 200 UN T/ML Pen Injector [Tresiba] 4297-49-16D85:00:00.000+00 :00 - Completed medroxyprogesterone acetate 10 MG Oral Tablet 7068-58-75K72:00:00.000+00 :00 - Completed 3 ML insulin degludec 200 UN T/ML Pen Injector [Tresiba] 6527-38-82O26:00:00.000+00 :00 - Completed - 2644-12-13W24:00 :00.000+00 :00 - Completed 3 ML insulin degludec 200 UN T/ML Pen Injector [Tresiba] 1619-77-57M47:00:00.000+00 :00 - Completed - 4371-91-91O84:00 :00.000+00 :00 - Completed 3 ML insulin degludec 200 UN T/ML Pen Injector [Tresiba] 0936-26-62O25:00:00.000+00 :00 - Completed 3 ML insulin degludec 200 UN T/ML Pen Injector [Tresiba] 0966-32-34E94:00:00.000+00 :00 - Completed - 5406-85-93J46:00 :00.000+00 :00 - Completed 3 ML semaglutide 1.34 MG/ML Pen Injector [Ozempic] 9656-26-67X64:00:00.000+00 :00 - Completed 3 ML insulin degludec 200 UN T/ML Pen Injector [Tresiba] 3661-22-52L89:00:00.000+00 :00 - Completed - 2229-61-08Y78:00 :00.000+00 :00 - Completed 3 ML insulin degludec 200 UN T/ML Pen Injector [Tresiba] 5257-53-20G03:00:00.000+00 :00 - Completed - 3427-66-55Q00:00 :00.000+00 :00 - Completed 3 ML insulin degludec 200 UN T/ML Pen Injector [Tresiba] 6243-12-85C33:00:00.000+00 :00 - Completed dicyclomine hydrochloride 20 MG Oral Tablet 2266-35-19F57:00:00.000+00 :00 - Completed 3 ML insulin aspart, human 1 00 UNT/ML Pen Injector [NovoLog] 8720-40-37I70:00:00.000+ 00 :00 - Completed cholestyramine resin 4000 MG Powder for Oral Suspension 9773-32-97J09:00:00.000+00 :00 - Completed dicyclomine hydrochloride 20 MG Oral Tablet 9567-87-52A83:00:00.000+00 :00 - Completed 3 ML insulin aspart, human 1 00 UNT/ML Pen Injector [NovoLog] 6498-26-93S39:00:00.000+ 00 :00 - Completed 3 ML insulin aspart, human 1 00 UNT/ML Pen Injector [NovoLog] 4461-48-78C55:00:00.000+ 00 :00 - Completed prednisone 10 MG Oral Tablet 01-13-12T:00:00.000+00 :00 - Completed Rimegepant 75 MG Disintegrat ing Oral Tablet [Nurtec] 7205-66-94E68:00:00.000+00 :00 - Completed fluticasone propionate 0.05 MG/ACTUAT Metered Dose Nasal [place] 7875-50-60P67:00:00 .000+00 :00 - Completed Rimegepant 75 MG Disintegrat ing Oral Tablet [Nurtec] 4902-89-07K72:00:00.000+00 :00 - Completed fluconazole 150 MG Oral Tablet 2 019-17-59J86:00:00.000+00 :00 - Completed dicyclomine hydrochloride 20 MG Oral Tablet 0409-60-41N48:00:00.000+00 :00 - Completed Rimegepant 75 MG Disintegrat ing Oral Tablet [[facility]] 3034-60-73R62:00:00.000+00 :00 - Completed fluconazole 150 MG Oral Tablet 2 116-22-75X67:00:00.000+00 :00 - Completed fluconazole 150 MG Oral Tablet 2 017-14-30G27:00:00.000+00 :00 - Completed fluticasone propionate 0.05 MG/ACTUAT Metered Dose Nasal [place] 4023-61-44B63:00:00 .000+00 :00 - Completed fluconazole 150 MG Oral Tablet 2 067-80-19C83:00:00.000+00 :00 - Completed Rimegepant 75 MG Disintegrat ing Oral Tablet [[facility]] 2871-90-54V44:00:00.000+00 :00 - Completed dicyclomine hydrochloride 20 MG Oral Tablet 4723-31-89K51:00:00.000+00 :00 - Completed Rimegepant 75 MG Disintegrat ing Oral Tablet [[facility]] 6980-00-02T10:00:00.000+00 :00 - Completed fluticasone propionate 0.05 MG/ACTUAT Metered Dose Nasal [place] 4706-81-86D91:00:00 .000+00 :00 - Completed Rimegepant 75 MG Disintegrat ing Oral Tablet [[facility]] 8922-61-25N41:00:00.000+00 :00 - Completed 24 HR metoprolol succinate 5 0 MG Extended Release Oral Tablet 0927-98-47U75:00:00.000+0 0 :00 - Completed 24 HR metoprolol succinate 5 0 MG Extended Release Oral Tablet 9344-03-06I78:00:00.000+0 0 :00 - Completed topiramate 50 MG Oral Tablet 01-12-08:00:00.000+00 :00 - Completed {28 (norethindrone 0.35 MG O ral Tablet) } Pack 3742-22-30F41:00:00.000+00 :00 - Completed 24 HR metoprolol succinate 5 0 MG Extended Release Oral Tablet 1383-77-37P66:00:00.000+0 0 :00 - Completed 24 HR metoprolol succinate 5 0 MG Extended Release Oral Tablet 6399-92-38Y87:00:00.000+0 0 :00 - Completed topiramate 50 MG Oral Tablet 202 12-20-17:00:00.000+00 :00 - Completed {28 (norethindrone 0.35 MG O ral Tablet) } Pack 4212-24-65C87:00:00.000+00 :00 - Completed topiramate 50 MG Oral Tablet 202 01-08-17:00:00.000+00 :00 - Completed topiramate 50 MG Oral Tablet 202 01-14-10:00:00.000+00 :00 - Completed metformin hydrochloride 1000 MG Oral Tablet 0102-82-07F92:00:00.000+00 :00 - Completed atorvastatin 10 MG Oral Tablet 2 295-02-32H54:00:00.000+00 :00 - Completed atorvastatin 10 MG Oral Tablet 2 874-35-11K31:00:00.000+00 :00 - Completed atorvastatin 10 MG Oral Tablet 2 915-01-78G18:00:00.000+00 :00 - Completed ondansetron 4 MG Oral Tablet 202 01-14-07:00:00.000+00 :00 - Completed lisinopril 5 MG Oral Tablet 2021:00:00.000+00 :00 - Completed atorvastatin 10 MG Oral Tablet 2 136-44-69I99:00:00.000+00 :00 - Completed {28 (norethindrone 0.35 MG O ral Tablet) } Pack 4480-85-19Q49:00:00.000+00 :00 - Completed ondansetron 4 MG Oral Tablet 202 12-19-12:00:00.000+00 :00 - Completed ondansetron 4 MG Oral Tablet 202 12-20-01:00:00.000+00 :00 - Completed lisinopril 5 MG Oral Tablet 2022:00:00.000+00 :00 - Completed atorvastatin 10 MG Oral Tablet 2 954-63-13M05:00:00.000+00 :00 - Completed metformin hydrochloride 1000 MG Oral Tablet 1900-70-26D64:00:00.000+00 :00 - Completed cephalexin 500 MG Oral Capsule 2 127-62-36N40:00:00.000+00 :00 - Completed ondansetron 4 MG Oral Tablet 202 01-13-20:00:00.000+00 :00 - Completed aripiprazole 20 MG Oral Tablet 2 988-59-30X39:00:00.000+00 :00 - Completed metformin hydrochloride 1000 MG Oral Tablet 3033-05-51M80:00:00.000+00 :00 - Completed metformin hydrochloride 1000 MG Oral Tablet 5368-58-96V79:00:00.000+00 :00 - Completed lisinopril 5 MG Oral Tablet 2021:00:00.000+00 :00 - Completed lisinopril 5 MG Oral Tablet 2022:00:00.000+00 :00 - Completed {28 (norethindrone 0.35 MG O ral Tablet) } Pack 4900-64-93T47:00:00.000+00 :00 - Completed omeprazole 20 MG Delayed Rel ease Oral Capsule 2000-37-32B43:00:00.000+00 :00 - Completed 12 HR pseudoephedrine hydroc hloride 120 MG Extended Release Oral Tablet 5305-76-97W99:00:0 0.000+00 :00 - Completed ibuprofen 800 MG Oral Tablet 12-19-12:00:00.000+00 :00 - Completed omeprazole 20 MG Delayed Rel ease Oral Capsule 7629-63-38P55:00:00.000+00 :00 - Completed ibuprofen 800 MG Oral Tablet 01-13-07:00:00.000+00 :00 - Completed - 5013-70-19N14:00 :00.000+00 :00 - Completed letrozole 2.5 MG Oral Tablet 01-13-29:00:00.000+00 :00 - Completed ibuprofen 800 MG Oral Tablet 01-12-11:00:00.000+00 :00 - Completed ibuprofen 800 MG Oral Tablet 202 12-20-09:00:00.000+00 :00 - Completed - 2635-80-22F78:00 :00.000+00 :00 - Completed ibuprofen 800 MG Oral Tablet 202 12-22-07:00:00.000+00 :00 - Completed ibuprofen 800 MG Oral Tablet 202 01-09-08:00:00.000+00 :00 - Completed - 9490-23-13U08:00 :00.000+00 :00 - Completed ibuprofen 800 MG Oral Tablet 202 12-21-06:00:00.000+00 :00 - Completed omeprazole 20 MG Delayed Rel ease Oral Capsule 2206-62-35P14:00:00.000+00 :00 - Completed ibuprofen 800 MG Oral Tablet 202 01-10-05:00:00.000+00 :00 - Completed ibuprofen 800 MG Oral Tablet 202 01-14-05:00:00.000+00 :00 - Completed ibuprofen 800 MG Oral Tablet 202 01-09-06:00:00.000+00 :00 - Completed omeprazole 20 MG Delayed Rel ease Oral Capsule 3333-77-69Q26:00:00.000+00 :00 - Completed - 3232-52-79I68:00 :00.000+00 :00 - Completed - 4385-29-73I39:00 :00.000+00 :00 - Completed ibuprofen 800 MG Oral Tablet 12-18-15:00:00.000+00 :00 - Completed - 5039-99-99Y61:00 :00.000+00 :00 - Completed omeprazole 20 MG Delayed Rel ease Oral Capsule 6433-74-88Z80:00:00.000+00 :00 - Completed ibuprofen 800 MG Oral Tablet 202 01-11-05:00:00.000+00 :00 - Completed - 0867-68-02F03:00 :00.000+00 :00 - Completed - 6461-55-57E26:00 :00.000+00 :00 - Completed - 6235-80-26N45:00 :00.000+00 :00 - Completed hydroxyzine hydrochloride 25 MG Oral Tablet 1328-17-26F54:00:00.000+00 :00 - Completed aripiprazole 20 MG Oral Tablet 2 879-42-10E22:00:00.000+00 :00 - Completed aripiprazole 20 MG Oral Tablet 2 861-45-37E94:00:00.000+00 :00 - Completed metronidazole 500 MG Oral Tablet 9970-24-12R43:00:00.000+00 :00 - Completed spironolactone 100 MG Oral Tablet 7434-76-78R66:00:00.000+00 :00 - Completed ciprofloxacin 500 MG Oral Tablet 6766-27-29I47:00:00.000+00 :00 - Completed spironolactone 100 MG Oral Tablet 7679-81-02J29:00:00.000+00 :00 - Completed metronidazole 500 MG Oral Tablet 8528-33-76P26:00:00.000+00 :00 - Completed ciprofloxacin 500 MG Oral Tablet 7098-97-09S37:00:00.000+00 :00 - Completed hydroxyzine hydrochloride 25 MG Oral Tablet 3075-42-39G23:00:00.000+00 :00 - Completed clotrimazole 20 MG/ML Vaginal Cream 6087-81-75U62:00:00.000+00 :00 - Completed hydroxyzine hydrochloride 25 MG Oral Tablet 8680-81-90M72:00:00.000+00 :00 - Completed hydroxyzine hydrochloride 25 MG Oral Tablet 7854-09-92E79:00:00.000+00 :00 - Completed spironolactone 100 MG Oral Tablet 0458-95-87F95:00:00.000+00 :00 - Completed - 3212-72-79T58:00 :00.000+00 :00 - Completed metronidazole 500 MG Oral Tablet 4197-77-32G03:00:00.000+00 :00 - Completed spironolactone 100 MG Oral Tablet 9680-48-36P53:00:00.000+00 :00 - Completed spironolactone 100 MG Oral Tablet 0550-32-57C42:00:00.000+00 :00 - Completed hydroxyzine hydrochloride 25 MG Oral Tablet 8181-19-11Q68:00:00.000+00 :00 - Completed - 2184-87-07U73:00 :00.000+00 :00 - Completed - 0892-98-53T36:00 :00.000+00 :00 - Completed - 8737-95-13U73:00 :00.000+00 :00 - Completed - 2640-20-53B50:00 :00.000+00 :00 - Completed - 7847-81-78I93:00 :00.000+00 :00 - Completed - 1131-10-30S25:00 :00.000+00 :00 - Completed - 7736-43-14U93:00 :00.000+00 :00 - Completed - 2816-04-02F28:00 :00.000+00 :00 - Completed - 4435-12-62Y28:00 :00.000+00 :00 - Completed - 6899-61-81G48:00 :00.000+00 :00 - Completed - 1523-89-07E16:00 :00.000+00 :00 - Completed - 2703-73-62J03:00 :00.000+00 :00 - Completed - 0447-27-23K91:00 :00.000+00 :00 - Completed - 8868-82-17L27:00 :00.000+00 :00 - Completed oxycodone hydrochloride 5 MG Oral Tablet 3475-30-64G88:00:00.000+00 :00 - Completed - 3777-33-87J90:00 :00.000+00 :00 - Completed - 8501-45-69H28:00 :00.000+00 :00 - Completed amoxicillin 875 MG / clavula carmen 125 MG Oral Tablet 7455-02-75C14:00:00.000+00 :00 - Completed amoxicillin 875 MG / clavula carmen 125 MG Oral Tablet 7761-48-88Z90:00:00.000+00 :00 - Completed betamethasone 0.5 MG/ML / clotrimazole 10 MG/ML Topical Cream 6623-17-88Z08:00:0 0.000+00 :00 - Completed amoxicillin 875 MG / clavula carmen 125 MG Oral Tablet 4253-84-24M60:00:00.000+00 :00 - Completed betamethasone 0.5 MG/ML / clotrimazole 10 MG/ML Topical Cream 3743-69-42E47:00:0 0.000+00 :00 - Completed acetaminophen 325 MG / hydro codone bitartrate 5 MG Oral Tablet 2132-94-84E40:00:00.000+00 :00 - Completed amoxicillin 875 MG / clavula carmen 125 MG Oral Tablet 8557-00-74Z00:00:00.000+00 :00 - Completed Patient Care team information Name Category Status Period Participants - - Proposed period not known -
--- NOTE | 2025-01-16 11:03 | ED_ITS ---
HPI - General Adult General Chief complaint: Skin/Abscess/Foreign Body Stated complaint: Abcess sight draining again Source: patient Mode of arrival: ambulatory Limitations: no limitations History of Present Illness HPI narrative: Patient presents for evaluation of a skin infection to the left side of her abdomen. She was seen here in late December for the same. She was treated with Keflex. Wound culture grew out staph aureus which was susceptible to multiple agents including bactrim, tetracycline and cephalosporins. She tooks her abx as directed and symptoms improved. She had recurrence of her symptoms yesterday. The infection is in the site of a previous insulin pump. She still has insulin pump insertion site is adjacent to site of concern. She reports purulent drainage the area. No fever, chills, nausea or vomiting. Related Data Home Medications ?Medication ?Instructions ?Recorded ?Confirmed ?Last Taken ?Type hydroxyzine pamoate 25 mg capsule 25 mg PO TID PRN Anxiety 09/21/19 12/06/24 11/24/24 History aripiprazole 20 mg tablet 20 mg PO DAILY 07/18/20 12/10/24 11/24/24 History desvenlafaxine succinate 100 mg 100 mg PO DAILY 07/18/20 12/06/24 11/24/24 History tablet,extended release 24 hr Allergies Allergy/AdvReac Type Severity Reaction Status Date / Time clindamycin Allergy Intermediate Hives Verified 01/16/25 10:57 Sulfa (Sulfonamide Allergy Intermediate Hives Verified 01/16/25 10:57 Antibiotics) Review of Systems Review of Systems: CONSTITUTIONAL: Denies fever, chills, or sweats. EYES: Denies visual changes, redness, or discharge. ENT: Denies rhinorrhea, congestion, sore throat, or otalgia. CARDIOVASCULAR: Denies chest pain, palpitations, or edema. RESPIRATORY: Denies cough or dyspnea. GASTROINTESTINAL: Denies abdominal pain, nausea, vomiting, or diarrhea. GENITOURINARY: Denies dysuria or hematuria. SKIN: Reports painful swollen lesion to the left side of the abdomen draining purulent fluid MUSCULOSKELETAL: Denies back pain, joint pain, or myalgia. NEUROLOGIC: Denies headache, numbness, dizziness, or weakness. PSYCHIATRIC: Denies anxiety or depression. [facility] Past Medical History Medical History Erythrocytosis Back spasm Bilateral leg pain Insulin pump fitting or adjustment Nausea & vomiting Ureterolithiasis Bilateral lower abdominal pain Hypoventilation associated with obesity Post-operative complication Vaginal bleeding Change in bowel habit Type 2 diabetes mellitus Acute bronchitis Hypertension Headache, migraine Allergies Chest wall syndrome Dyspnea Pleuritic chest pain Pneumonia due to COVID-19 virus Hyperlipidemia associated with type 2 diabetes mellitus GERD (gastroesophageal reflux disease) KAYLEE (obstructive sleep apnea) Ureter obstruction Left ureteral stone Eczema PTSD (post-traumatic stress disorder) Anxiety Depression Seeing psychiatry Elbow fracture, right Wrist fracture, bilateral Leg fracture, left PCOS (polycystic ovarian syndrome) TIA (transient ischemic attack) Migraine Seeing neurology Surgical History Surgical History Hx of excision of mass Excisional sharp debridement with scalpel of necrotic skin and subcutaneous tissue lower abdominal wall wound 05/07/24 S/P laparoscopic procedure History of lithotripsy History of removal of cyst H/O laparoscopy laparoscopic extensive lysis of adhesions/hysteroscopy/ polypectomy/dilatation curettage Hx of cholecystectomy Family History Family History Father Diabetes mellitus Hypertension Family history of elevated blood lipids Grandparent Diabetes mellitus Family history of coronary artery disease Mother Hypertension Other Cancer Cerebrovascular accident Depression Social History Social History Social History: Angela is very confident filling out medical forms. In the last 12 months she has not received assistance from an organization or program. She started vaping 2 weeks ago and prior to that she smoked cigarettes for 1 year. She is single and has No children . 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 She drinks alcohol socially. She lives with her niece and her family. Code status full code Smoking packs per day: 0.15 Smoking cigarettes per day: 3.0 Years smoked: 5 Smoking pack-years: 0.75 Smoking status: Current every day smoker Tobacco type: cigarettes and e-cigarettes/vaping Second hand tobacco smoke exposure: No Additional smoking assessment comments: STOPPED CIGARETTES MID 2021, NOW VAPING Alcohol intake: current Drinks per week: 1 Alcohol use details: 1-2/YEAR Substance use: current Substance use type: marijuana Other substance usage details: every once in awhile. 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 HEAD: Normocephalic, atraumatic. EYES: PERRLA and EOMI. ENT: Nares clear, no rhinorrhea or epistaxis. Mucous membranes moist. Oropharynx without tonsillar hypertrophy exudate or other lesions. Bilateral TMs pearly riley nonbulging NECK: Supple. No adenopathy or masses. No carotid bruits or JVD CHEST: Clear to auscultation. No respiratory distress. No wheezes rales or rhonchi HEART: Regular rate and rhythm. No murmur heard. Normal peripheral pulses. ABDOMEN: Soft, nontender, nondistended, normal active bowel sounds. EXTREMITIES: Normal range of motion. No edema. SKIN: There is a 1.5 x 1 cm fluctuant hyper pigmented lesion to the left side of her abdomen with 5 x 7 area of surrounding erythema and induration NEURO: No focal deficits. Alert and oriented x3. PSYCH: Normal mood and affect. Course Course Emergency Course: This is a 39-year-old female who presented for evaluation of a painful swollen lesion to the left side of her abdomen. Reviewed her previous wound culture which grew out Staph aureus, susceptible to multiple agents. Incision and drainage was performed today patient tolerated well. Replace her on doxycycline which would allow for staph coverage and potential MRSA coverage. Follow up with primary care provider. Go to the ER for worsening symptoms. Pt in agreement with plan of care. Given paper script for hydrocodone as there in an error attempting to send electronically. Level of Care: Express Care Visit Vital Signs Vital signs: Vital Signs Temperature 36.2 C L 01/16/25 10:50 Pulse Rate 103 H 01/16/25 10:50 Respiratory Rate 20 01/16/25 10:50 Blood Pressure 152/86 H 01/16/25 10:50 Pulse Oximetry 100 01/16/25 10:50 Oxygen Delivery Room Air 01/16/25 10:50 Temperature 36.2 C L 01/16/25 10:50 Pulse Rate 103 H 01/16/25 10:50 Respiratory Rate 20 01/16/25 10:50 Blood Pressure 152/86 H 01/16/25 10:50 Pulse Oximetry 100 01/16/25 10:50 Oxygen Delivery Room Air 01/16/25 10:50 Procedures Abscess I/D abdomen: Date of Incision: 01/16/25 Time of Incision: 12:20 Side (if applicable): left Local Anesthetic: lidocaine 1% and with epi Amount of anesthesia used (mL): 6 Technique: incised with #11 blade Amount of fluid expressed (mL): 10 Packing used?: plain I&D Results: Blood Medical Decision Making Vital Signs Vital Signs: Vital Signs Temperature 36.2 C L 01/16/25 10:50 Pulse Rate 103 H 01/16/25 10:50 Respiratory Rate 20 01/16/25 10:50 Blood Pressure 152/86 H 01/16/25 10:50 Pulse Oximetry 100 01/16/25 10:50 Oxygen Delivery Room Air 01/16/25 10:50 Temperature 36.2 C L 01/16/25 10:50 Pulse Rate 103 H 01/16/25 10:50 Respiratory Rate 20 01/16/25 10:50 Blood Pressure 152/86 H 01/16/25 10:50 Pulse Oximetry 100 01/16/25 10:50 Oxygen Delivery Room Air 01/16/25 10:50 Discharge Plan Discharge Clinical Impression: Abscess of skin of abdomen Patient Disposition: Home, Self-Care Condition: Stable Instructions: Antibiotic Form Patient Language: Urdu Prescriptions: New doxycycline hyclate 100 mg capsule 100 mg PO BID Qty: 20 0RF ondansetron 4 mg tablet,disintegrating 4 mg PO Q6H PRN (Reason: nausea and vomiting) Qty: 20 0RF hydrocodone-acetaminophen 5-325 mg tablet 1 - 2 tablet PO Q6H PRN (Reason: pain) Qty: 15 0RF No Action (DME) lancets [OneTouch Delica Plus Lancet] 33 gauge misc See Rx Instructions .Route Qty: 600 3RF Rx Instructions: Use to check glucose 3-4 times a day (DME) Dexcom G6 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 Misc See Rx Instructions .ROUTE .MEDSUPPLY Qty: 1 0RF Rx Instructions: Will use smartphone aripiprazole 20 mg tablet 20 mg PO DAILY desvenlafaxine succinate 100 mg tablet extended release 24 hr 100 mg PO DAILY hydroxyzine pamoate 25 mg capsule 25 mg PO TID PRN (Reason: Anxiety) (DME) OneTouch Verio test strips Strip See Rx Instructions .ROUTE .COMPLEX Qty: 100 7RF Dose Instruction: USE TO CHECK GLUCOSE 3-4 TIMES A DAY Rx Instructions: USE TO CHECK GLUCOSE 3-4 TIMES A DAY amlodipine 2.5 mg tablet 2.5 mg PO DAILY Qty: 90 1RF Jardiance 25 mg tablet 25 mg PO DAILY Qty: 90 1RF Ubrelvy 100 mg tablet See Rx Instructions .ROUTE .COMPLEX Qty: 10 3RF Dose Instruction: 100 MG ORALLY ONCE NEEDED FOR MIGRAINE HEADACHE A SINGLE DOSE MAY REPEAT ONCE IN >=2 HOURS AFTER FIRST DOSE IF NEEDED Patient Comments: prn Rx Instructions: 100 MG ORALLY ONCE NEEDED FOR MIGRAINE HEADACHE A SINGLE DOSE MAY REPEAT ONCE IN >=2 HOURS AFTER FIRST DOSE IF NEEDED (DME) pen needle, diabetic [Pen Needle] 32 gauge x 5/32 needle See Rx Instructions .Route Qty: 100 8RF Rx Instructions: As directed daily insulin aspart U-100 [Novolog U-100 Insulin aspart] 100 unit/mL solution 120 unit continuous subcutaneous infusion DAILY Qty: 110 3RF Rx Instructions: via insulin pump cholestyramine-aspartame [Cholestyramine Light] 4 gram powder in packet 4 g PO DAILY Qty: 90 1RF Rx Instructions: administer w/meal; avoid other meds within 1hr before or 4-6hr after dose metoprolol succinate 50 mg tablet extended release 24 hr 50 mg PO DAILY Qty: 90 1RF atorvastatin 10 mg tablet 10 mg PO DAILY Qty: 90 3RF insulin degludec [Tresiba FlexTouch U-100] 100 unit/mL (3 mL) insulin pen 45 unit subcut DAILY PRN (Reason: insulin pump malfunction ) Qty: 15 1RF spironolactone 100 mg tablet 200 mg PO DAILY Qty: 90 1RF Mounjaro 2.5 mg/0.5 mL pen injector 2.5 mg subcut WEEKLY Qty: 2 0RF Rx Instructions: for 4 weeks Mounjaro 5 mg/0.5 mL pen injector 5 mg subcut WEEKLY Qty: 6 1RF metformin [Glucophage XR] 500 mg tablet extended release 24 hr 1,000 mg PO BID Qty: 360 1RF (DME) Dexcom G7 Sensor Device See Rx Instructions .ROUTE .MEDSUPPLY Qty: 9 3RF Patient Comments: Patient states uses this dexcom Rx Instructions: Use to monitor glcuose metoclopramide HCl 10 mg tablet See Rx Instructions .ROUTE .COMPLEX Qty: 90 0RF Dose Instruction: TAKE 1 TABLET BY MOUTH EVERY DAY BEFORE MEALS Rx Instructions: TAKE 1 TABLET BY MOUTH EVERY DAY BEFORE MEALS omeprazole 40 mg capsule,delayed release(DR/EC) See Rx Instructions .ROUTE .COMPLEX Qty: 180 1RF Dose Instruction: TAKE 1 CAPSULE BY MOUTH TWICE A DAY Rx Instructions: TAKE 1 CAPSULE BY MOUTH TWICE A DAY ondansetron 4 mg tablet,disintegrating 4 mg PO Q8H PRN (Reason: nausea and vomiting) Qty: 10 0RF Patient Comments: Patient states only takes one ondansetron tablets Follow-up/Referrals: Dana Roy MD [Primary Care Provider] - Time of Disposition: 12:15
== END 2025-01-16 12:20 | disposition home or self-care (01) ==
PROVIDERS: Emergency Provider Nurse Practitioner; PCP Family Medicine
DX: L02.211 Cutaneous abscess of abdominal wall (principal); F17.290 Nicotine dependence, other tobacco product, uncomplicated; E11.9 Type 2 diabetes mellitus without complications; I10 Essential (primary) hypertension; K21.9 Gastro-esophageal reflux disease without esophagitis; F41.9 Anxiety disorder, unspecified; F32.A Depression, unspecified; Z86.73 Personal history of transient ischemic attack (TIA), and cerebral infarction without residual deficits
CPT/HCPCS: 10061; 87070; 87075; 87205; 99213; G0463; J2003

== ENCOUNTER 2025-07-19 08:03 | Emergency (ER) | payer MEDICAID, SELFPAY ==
[2025-07-19 08:11] VITALS: BP 142/83; PULSE 108; RESP 20; TEMP 36.3; O2SAT 96
--- NOTE | 2025-07-19 08:28 | ED_ITS ---
HPI - General Adult General Chief complaint: Ear Stated complaint: Ear Pain Source: patient Mode of arrival: ambulatory Limitations: no limitations History of Present Illness HPI narrative: Patient presents for evaluation of sick symptoms for last 3 days. Symptoms include sinus congestion, thick yellow drainage from the nares, bilateral otalgia and occasional cough. She states the cough is mild and she attributes it to being exposed to cigarette smoke by a family member. She denies any fever, chills, nausea, vomiting, diarrhea. She took some allergy medication for her symptoms which seemed to help. She does not smoke. Related Data Home Medications ?Medication ?Instructions ?Recorded ?Confirmed ?Last Taken ?Type hydroxyzine pamoate 25 mg capsule 25 mg PO TID PRN Anx iety 09/21/19 02/02/25 11/24/24 History aripiprazole 20 mg tablet 20 mg PO DAILY 07/18/2001/0911/24/24 History desvenlafaxine succinate 100 mg 100 mg PO DAILY 02/02/25 11/24/24 History tablet,extended release 24 hr erenumab-aooe 70 mg/mL 70 mg subcut MONTHLY 5 02/02/25 Unknown History subcutaneous auto-injector (Aimovig Autoinjector) Allergies Allergy/AdvReac Type Severity Reaction Status Date / Time clindamycin Allergy Intermediate Hives Verified 07/19/25 08:11 Sulfa (Sulfonamide Allergy Intermediate Hives Verified 07/19/25 08:11 Antibiotics) Review of Systems Review of Systems: CONSTITUTIONAL: Denies fever, chills, or sweats. EYES: Denies visual changes, redness, or discharge. ENT: Reports sinus congestion, thick yellow drainage from the nares and bilateral otalgia. Denies sore throat CARDIOVASCULAR: Denies chest pain, palpitations, or edema. RESPIRATORY: Reports cough. Denies shortness of breath. GASTROINTESTINAL: Denies abdominal pain, nausea, vomiting, or diarrhea. GENITOURINARY: Denies dysuria or hematuria. SKIN: Denies rash or itching. MUSCULOSKELETAL: Denies back pain, joint pain, or myalgia. NEUROLOGIC: Denies headache, numbness, dizziness, or weakness. PSYCHIATRIC: Denies anxiety or depression. [facility] Past Medical History Medical History Erythrocytosis Back spasm Bilateral leg pain Insulin pump fitting or adjustment Nausea & vomiting Ureterolithiasis Bilateral lower abdominal pain Hypoventilation associated with obesity Post-operative complication Vaginal bleeding Change in bowel habit Type 2 diabetes mellitus Acute bronchitis Hypertension Headache, migraine Allergies Chest wall syndrome Dyspnea Pleuritic chest pain Pneumonia due to COVID-19 virus Hyperlipidemia associated with type 2 diabetes mellitus GERD (gastroesophageal reflux disease) KAYLEE (obstructive sleep apnea) Ureter obstruction Left ureteral stone Eczema PTSD (post-traumatic stress disorder) Anxiety Depression Seeing psychiatry Elbow fracture, right Wrist fracture, bilateral Leg fracture, left PCOS (polycystic ovarian syndrome) TIA (transient ischemic attack) Migraine Seeing neurology Surgical History Surgical History Hx of excision of mass Excisional sharp debridement with scalpel of necrotic skin and subcutaneous tissue lower abdominal wall wound 05/07/24 S/P laparoscopic procedure History of lithotripsy History of removal of cyst H/O laparoscopy laparoscopic extensive lysis of adhesions/hysteroscopy/ polypectomy/dilatation curettage Hx of cholecystectomy Family History Family History Father Diabetes mellitus Hypertension Family history of elevated blood lipids Grandparent Diabetes mellitus Family history of coronary artery disease Mother Hypertension Other Cancer Cerebrovascular accident Depression Social History Social History Social History: Angela is very confident filling out medical forms. In the last 12 months she has not received assistance from an organization or program. She started vaping 2 weeks ago and prior to that she smoked cigarettes for 1 year. She is single and has No children . 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 She drinks alcohol socially. She lives with her niece and her family. Code status full code Smoking packs per day: 0.15 Smoking cigarettes per day: 3.0 Years smoked: 5 Smoking pack-years: 0.75 Smoking status: Former smoker Tobacco type: cigarettes and e-cigarettes/vaping Second hand tobacco smoke exposure: No Additional smoking assessment comments: STOPPED CIGARETTES MID 2021, NOW VAPING Alcohol intake: current Drinks per week: 1 Alcohol use details: 1-2/YEAR Substance use: current Substance use type: marijuana Other substance usage details: every once in awhile. 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 HEAD: Normocephalic, atraumatic. EYES: PERRLA and EOMI. ENT: Nares clear, no rhinorrhea or epistaxis. Mucous membranes moist. Oropharynx without tonsillar hypertrophy exudate or other lesions. Bilateral TMs pearly riley nonbulging NECK: Supple. No adenopathy or masses. No carotid bruits or JVD CHEST: Clear to auscultation. No respiratory distress. No wheezes rales or rhonchi HEART: Regular rate and rhythm. No murmur heard. Normal peripheral pulses. ABDOMEN: Soft, nontender, nondistended, normal active bowel sounds. EXTREMITIES: Normal range of motion. No edema. SKIN: Warm, dry, no rash. NEURO: No focal deficits. Alert and oriented x3. PSYCH: Normal mood and affect. Course Course Emergency Course: This is a 39-year-old female who presented for evaluation of sick symptoms. She meets criteria for bacterial sinusitis based upon mucosa purulent nature for discharge. Will discharge with Augmentin. Follow-up with primary provider. Go to the ER for worsening symptoms. Patient in agreement with plan of care Level of Care: Express Care Visit Vital Signs Vital signs: Vital Signs Temperature 36.3 C L 07/19/25 08:11 Pulse Rate 108 H 07/19/25 08:11 Respiratory Rate 20 07/19/25 08:11 Blood Pressure 142/83 H 07/19/25 08:11 Pulse Oximetry 96 07/19/25 08:11 Oxygen Delivery Room Air 07/19/25 08:11 Temperature 36.3 C L 07/19/25 08:11 Pulse Rate 108 H 07/19/25 08:11 Respiratory Rate 20 07/19/25 08:11 Blood Pressure 142/83 H 07/19/25 08:11 Pulse Oximetry 96 07/19/25 08:11 Oxygen Delivery Room Air 07/19/25 08:11 Medical Decision Making Vital Signs Vital Signs: Vital Signs Temperature 36.3 C L 07/19/25 08:11 Pulse Rate 108 H 07/19/25 08:11 Respiratory Rate 20 07/19/25 08:11 Blood Pressure 142/83 H 07/19/25 08:11 Pulse Oximetry 96 07/19/25 08:11 Oxygen Delivery Room Air 07/19/25 08:11 Temperature 36.3 C L 07/19/25 08:11 Pulse Rate 108 H 07/19/25 08:11 Respiratory Rate 20 07/19/25 08:11 Blood Pressure 142/83 H 07/19/25 08:11 Pulse Oximetry 96 07/19/25 08:11 Oxygen Delivery Room Air 07/19/25 08:11 Discharge Plan Discharge Clinical Impression: Sinusitis Patient Disposition: Home Condition: Stable Instructions: Antibiotic Form, Sinusitis (ED) Patient Language: Uzbek Prescriptions: New amoxicillin-pot clavulanate 875-125 mg tablet 1 tablet PO Q12H Qty: 20 0RF No Action ondansetron 4 mg tablet,disintegrating 4 mg PO Q6H PRN (Reason: nausea and vomiting) Qty: 20 0RF hydrocodone-acetaminophen 5-325 mg tablet 1 - 2 tablet PO Q6H PRN (Reason: pain) Qty: 15 0RF (DME) lancets [OneTouch Delica Plus Lancet] 33 gauge misc See Rx Instructions .Route Qty: 600 3RF Rx Instructions: Use to check glucose 3-4 times a day Aimovig Autoinjector 70 mg/mL auto-injector 70 mg subcut MONTHLY Ubrelvy 100 mg tablet See Rx Instructions .ROUTE .COMPLEX Qty: 10 3RF Dose Instruction: 100 MG ORALLY ONCE NEEDED FOR MIGRAINE HEADACHE A SINGLE DOSE MAY REPEAT ONCE IN >=2 HOURS AFTER FIRST DOSE IF NEEDED Patient Comments: prn Rx Instructions: 100 MG ORALLY ONCE NEEDED FOR MIGRAINE HEADACHE A SINGLE DOSE MAY REPEAT ONCE IN >=2 HOURS AFTER FIRST DOSE IF NEEDED Qulipta 60 mg tablet 60 mg PO DAILY Qty: 28 0RF Rx Instructions: Lot [id number]; Exp 10/04 (24 tabs) Lot [id number]; Exp 08/05 (4 tabs) amlodipine 5 mg tablet 5 mg PO DAILY Qty: 30 2RF aripiprazole 20 mg tablet 20 mg PO DAILY desvenlafaxine succinate 100 mg tablet extended release 24 hr 100 mg PO DAILY hydroxyzine pamoate 25 mg capsule 25 mg PO TID PRN (Reason: Anxiety) cholestyramine-aspartame [Cholestyramine Light] 4 gram powder in packet 4 g PO DAILY Qty: 90 1RF Rx Instructions: administer w/meal; avoid other meds within 1hr before or 4-6hr after dose metoclopramide HCl 10 mg tablet See Rx Instructions .ROUTE .COMPLEX Qty: 90 0RF Dose Instruction: TAKE 1 TABLET BY MOUTH EVERY DAY BEFORE MEALS Rx Instructions: TAKE 1 TABLET BY MOUTH EVERY DAY BEFORE MEALS (DME) Dexcom G7 Sensor Device See Rx Instructions .ROUTE .MEDSUPPLY Qty: 9 3RF Patient Comments: Patient states uses this dexcom Rx Instructions: Use to monitor glcuose Trulicity 0.75 mg/0.5 mL pen injector 0.75 mg subcut WEEKLY Qty: 2 3RF insulin aspart U-100 [Novolog U-100 Insulin aspart] 100 unit/mL solution 120 unit continuous subcutaneous infusion DAILY Qty: 110 3RF Rx Instructions: via insulin pump insulin degludec [Tresiba FlexTouch U-100] 100 unit/mL (3 mL) insulin pen 45 unit subcut DAILY PRN (Reason: insulin pump malfunction ) Qty: 15 1RF metformin [Glucophage XR] 500 mg tablet extended release 24 hr 1,000 mg PO BID Qty: 360 1RF (DME) pen needle, diabetic [Pen Needle] 32 gauge x 5/32 needle See Rx Instructions .Route Qty: 100 8RF Rx Instructions: As directed daily (DME) OneTouch Verio test strips Strip See Rx Instructions .ROUTE .COMPLEX Qty: 100 7RF Dose Instruction: USE TO CHECK GLUCOSE 3-4 TIMES A DAY Rx Instructions: USE TO CHECK GLUCOSE 3-4 TIMES A DAY atorvastatin 10 mg tablet 10 mg PO DAILY Qty: 30 0RF lisinopril 5 mg tablet 5 mg PO DAILY Qty: 30 0RF omeprazole 40 mg capsule,delayed release(DR/EC) See Rx Instructions .ROUTE .COMPLEX Qty: 60 0RF Dose Instruction: TAKE 1 CAPSULE BY MOUTH TWICE A DAY Rx Instructions: TAKE 1 CAPSULE BY MOUTH TWICE A DAY Qulipta 60 mg tablet 60 mg PO DAILY Qty: 30 6RF Jardiance 25 mg tablet 25 mg PO DAILY Qty: 90 0RF ondansetron 4 mg tablet,disintegrating 4 mg PO Q8H PRN (Reason: nausea and vomiting) Qty: 30 1RF Patient Comments: Patient states only takes one ondansetron tablets metoprolol succinate 50 mg tablet extended release 24 hr 50 mg PO DAILY Qty: 90 1RF spironolactone 100 mg tablet 200 mg PO DAILY Qty: 90 0RF Follow-up/Referrals: James Fox MD [Physician, Family Practice] Time of Disposition: 08:20
--- OUTSIDE RECORDS SUMMARY | 2025-07-19 08:28 | XMS_ITS | Clinical Summary ---
Author Organization [facility] Address [address] [place] [address] Phone Care Team Providers Care Fiber Technician Name Role Phone Dana Roy MD Primary Care Provider [phone] Janine Pardo MD Unavailable Allergies Active Allergy Reactions Criticality Noted Date Comments Clindamycin Hives 12/22/2017 Sulfa Antibiotics Hives 2015 Medications metFORMIN (GLUCOPHAGE) 500 MG Tablet Take 1,000 mg by mouth 2 times daily (with meals). Active Vit-Fe Fumarate-FA ( VITAMIN PO) Take by mouth daily. Active ondansetron (ZOFRAN-ODT) 4 MG TABLET DISPERSIBLE TK 1 T PO Q 6 H PRF NAUSEA 0 7 Active Aripiprazole (ABILIFY) 20 MG Tablet Take 20 mg by mouth nightly. Active Jencycla 0.35 MG Tablet Take 1 Tablet by mouth daily. 5 Active Desvenlafaxine Succinate 100 MG TABLET SR 24 HR Take 1 Tablet by mouth daily. Active amLODIPine (NORVASC) 5 MG Tablet Take 1 Tablet by mouth daily. Active Jardiance 25 MG Tablet Take 1 Tablet by mouth daily. Active dicyclomine (BENTYL) 10 MG Capsule Take 1 Capsule by mouth 3 times daily. 4 Active omeprazole (PriLOSEC) 40 MG CAPSULE DELAYED RELEASE Take 1 Capsule by mouth 2 times daily. 4 Active hydrOXYzine (ATARAX) 25 MG Tablet Take 25 mg by mouth every 8 hours as needed for Itching, Anxiety or Nausea. Active Ubrelvy 100 MG Tablet Take 100 mg by mouth as needed for Other (Migraine). 4 Active spironolactone (ALDACTONE) 100 MG Tablet Take 2 Tablets by mouth daily. Active metoprolol Succinate (TOPROL-XL) 50 MG TABLET SR 24 HR Take 1 Tablet by mouth daily. Active cholestyramine light (QUESTRAN LIGHT) 4 g Pack Take 4 g by mouth as needed for Other (diarrhea). 5 Active atorvastatin (LIPITOR) 40 MG TabletIndicatio ns:Transient Ischemic Attacks Take 1 Tablet by mouth daily. Indications: Temporary Stroke 90 Tablet 1 5 Active aspirin 81 MG Chewable Tablet Take 1 Tablet by mouth daily. 5 Active ondansetron (ZOFRAN-ODT) 4 MG TABLET DISPERSIBLE Take 1 Tablet by mouth every 6 hours as needed for Nausea - 1st line. 10 Tablet 5 Active Additional Information Patient not taking.Reported on 06/02/2025 polyethylene glycol (GLYCOLAX, MIRALAX) 17 g PackIndications :Constipation Take 1 Packet by mouth 2 times daily as needed for Constipation - 1st line. Dissolve in 4-8 oz of liquid. Indications: Constipation 90 Packet 5 Active Additional Information Patient not taking.Reported on 06/02/2025 lisinopril (PRINIVIL, ZESTRIL) 5 MG Tablet Take 1 Tablet by mouth daily. 90 Tablet 5 Active fluconazole (DIFLUCAN) 150 MG Tablet Take 150 mg by mouth once. Active Insulin Degludec FlexTouch 100 UNIT/ML Solution Pen-injector 60 Units by Subcutaneous route nightly. 60 mL 1 5 Active Insulin Aspart FlexPen 100 UNIT/ML Solution Pen-injector 20 units before each meal; correctional factor insulin of 1:15 if >140 mg/dL, up to 90 units per day 90 mL 1 5 Active Insulin Pen Needle 32G X 4 MM Misc 4 times a day 400 Each 3 5 Active Dulaglutide (Trulicity) 1.5 MG/0.5ML Solution Auto-injector 1.5 mg by Subcutaneous route once a week. 6 mL Active Active Problems Problem Noted Date Diagnosed Date Left sided numbness 02/20/2025 TIA (transient ischemic attack) 02/19/2025 CVA (cerebral vascular accident) 02/18/2025 Urinary tract infection 02/18/2025 Leukocytosis 02/18/2025 Type 2 diabetes mellitus 02/18/2025 Hypertension 02/18/2025 History of migraine headaches 02/18/2025 KAYLEE on CPAP 02/18/2025 Polycystic ovarian syndrome 02/18/2025 Depression 02/18/2025 PTSD (post-traumatic stress disorder) 02/18/2025 Morbid obesity with BMI of 50.0-59.9, adult 02/08 Nephrolithiasis 01/31/2017 Encounters Date Type Department Care Team Description 06/22/2025 Transcribe Orders [facility] [address] [place] [address] Deja Walker DO Spondylosis, unspecified (Primary Dx) 06/17/2025 Transcribe Orders [facility] Central Scheduling [address] [place] [phone] Deja Walker DO Spondylosis (Primary Dx) 06/07/2025 Telephone [facility] [address] [place] [phone] Marine Cannon MD 06/03/2025 Telephone [facility] [address] [place] [phone] Marine Cannon MD Medication Management 06/02/2025 1:45 PM CDT Lab [facility] [address] [address] Lab[facility] Leuk[facility], unspecified type 06/02/2025 1:30 PM CDT Office Visit [facility] [address] [address] Janine Pardo MD Leukocytosis, unspecified type (Primary Dx) 06/02/2025 Travel [facility]/04/20[facility] [address] [place] [address] Marine Cannon MD Advice Only; Medication Management 05/03/2025 2:00 PM CDT [facility] [address] [place] [address] Marine Cannon MD Type 2 diabetes mellitus with other circulatory complication, with long-term current use of insulin (Primary Dx); Insulin pump titration; Medication dose changed; Class 3 severe obesity due to excess calories with serious comorbidity and body mass index (BMI) of 50.0 to 59.9 in adult Discharge Disposition: Discharged to home or Selfcare 05/01/2025 Travel from Last 3 Months Family History Relation Name Status Comments Brother Alive Father Alive Mother Alive Social History Tobacco Use Types Packs/Day Years Used Date Smoking Tobacco: Former Smokeless Tobacco: Never Tobacco Cessation:Counseling Given: Not Answered Alcohol Use Standard Drinks/Week Comments No 0 (1 standard drink = 0.6 oz pur e alcohol) Free[employer] Answer Date Recorded In the past 12 months has manetch, gas, oil, or water [employer] threatened to shut off services in your home? Patient declined 02/18/2025 Social Connection and Isolation Panel Answer Date Recorded In a typical week, how many times do you talk on the phone with family, friends, or neighbors? Patient declined 02/18/2025 How often do you get togethe r with friends or relatives? Patient declined 02/18/2025 How often do you attend spiritism or hinduism serv ices? Patient declined 02/18/2025 Do you belong to any clubs o r organizations such as spiritism groups, unions, fraternal or athletic groups, or school groups? Patient declined 02/18/2025 How often do you attend meet ings of the clubs or organizations you belong to? Patient declined 02/18/2025 Are you , , di vorced, , never , or living with a partner? Patient declined 02/18/2025 AUDIT-C Answer Date Recorded Q1: How often do you have a drink containing alc ohol? Patient declined 02/18/2025 Q2: How many drinks containi ng alcohol do you have on a typical day when you are drinking? Patient declined 02/18/2025 Q3: How often do you have si x or more drinks on one occasion? Patient declined 02/18/2025 Overall Financial Resource Strain (CARDIA) Answe r Date Recorded How hard is it for you to pa y for the very basics like food, housing, medical care, and heating? Patient declined 02/18/2025 [facility] Questionnaire Answer Date Recorded Do you feel stress - tense, restless, nervous, or anxious, or unable to sleep at night because your mind is troubled all the time - these days? Patient declined 02/18/2025 Exercise Vital Sign Answer Date Recorde d On average, how many days pe r week do you engage in moderate to strenuous exercise (like a brisk walk)? Patient declined On average, how many minutes do you engage in exercise at this level? Patient declined 02/18/2025 Hunger Vital Sign Answer Date Recorded Within the past 12 months, y ou worried that your food would run out before you got the money to buy more. Patient declined Within the past 12 months, t he food you bought just didn't last and you didn't have money to get more. Patient declined 09/2025 PRAPARE - Transportation Answer Date Re corded In the past 12 months, has l ack of transportation kept you from medical appointments or from getting medications? Patient declined 02/18/2025 In the past 12 months, has l ack of transportation kept you from meetings, work, or from getting things needed for daily living? Patient declined 02/18/2025 Housing Stability Vital Sign Answer Jim e Recorded In the last 12 months, was t here a time when you were not able to pay the mortgage or rent on time? Patient declined 02/19/20 25 In the past 12 months, how m any times have you moved where you were living? 0 02/18/2025 At any time in the past 12 m [facility], were you homeless or living in a long term (including now)? Patient declined 02/18/2025 Sexually Active Control Partners Comments Yes Male Comments No Sex and Gender Information Value Date Recorded Sex Assigned at Not on file Legal Sex Female 9:46 PM CDT Gender Identity Not on file Sexual Orientation Not on file Last Filed Vital Signs Vital Sign Reading Time Taken Comments Blood Pressure 128/74 06/02/2025 1:29 PM CDT Pulse 94 06/02/2025 1:29 PM CDT Temperature 36.9 C (98.4 F) 06/02/2025 1:29 PM CDT Respiratory Rate 18 06/02/2025 1:29 PM CDT Oxygen Saturation 96% 06/02/2025 1:29 PM CDT Inhaled Oxygen Concentration - - Weight 168.5 kg (371 lb 6.4 oz) 06/02/2025 1:29 PM CDT Height 170.2 cm (5' 7) 06/02/2025 1:29 PM CDT Body Mass Index 58.17 06/02/2025 1:29 PM CDT Plan of Treatment Upcoming Encounters Date Type Department Care Team (Late st Contact Info) Description 07/26/2025 9:30 AM CDT Office Visit [facility] [address] [address] Janine Pardo MD [address] [place] [id number] 08/03/2025 9:00 AM CDT [facility] [place] [address] [place] [address] Marine Cannon MD [address] [address] Health Maintenance Due Date Last Done Comments Diabetes: Eye Exam 1983 Hepatitis C Virus (HCV) Screening 1983 Mammogram 1983 TdaP Immunization 1983 Hepatitis B Immunization (1 of 3 - 19+ 3-dose series) 2002 Pneumococcal Immunization Combined (1 of 2 - PCV) 2002 Pap Smear 2004 Human Papillomavirus (HPV) Immunization (1 - 3-dose SCDM series) 2010 Cervical Cancer Screening (CCS) 2013 HPV/Cotest 2013 Diabetes: Nephropathy Screening 09/26/2019 09/26/2018 Discussion re Starting/Frequency of Mammograms 2023 Influenza Immunization (#1) 07/11/202507/11, 10/15/2023, 10/08/2023, Additional history exists SARS-COV-2 Immunization ( season) 2025 07/07/2021, 06/16/2021 Diabetes: Hemoglobin A1c 08/20/2025 02/18/2025, 11/10 Diabetes: Foot Exam 05/03/2026 05/03/2025 Respiratory Syncytial Virus (RSV) Immunization (Adult) (1 - 1-dose 75+ series) 2058 DTaP/Tdap/Td Immunization Discontinued 10/11/2013 Meningococcal Immunization (ACWY) Aged Out No longer eligible based on patient's age to complete this topic Rotavirus Immunization Aged Out No lo nger eligible based on patient's age to complete this topic Procedures Procedure Name Priority Date/Time Associated Diagnosis Comments FISH BCR/ABL T(9;22) FOR CML/ALL Routine 06/02/2025 1:45 PM CDT Leukocytosis, unspecified type FLOW MYE/LYM + ACUTE LEUK OH A039-0 Routine 06/02/2025 1:45 PM CDT COMP. METABOLIC PANEL [id number] [place] Routine 06/02/2025 1:45 PM CDT LDH 96407 [place] Routine 06/02/2025 1:45 PM CDT C-REACTIVE PROTEIN, [place] Routine 06/02/2025 1:45 PM CDT COMPLETE BLOOD COUNT (CBC) WITH DIFF Routine 06/02/2025 1:45 PM CDT Leukocytosis, unspecified type ONKOSIGHT ADVANCED NGS MYELOID PANEL Routine 06/02/2025 1:45 PM CDT Leukocytosis, unspecified type HEMOGLOBIN A1C W/ ESTIMATED GLUCOSE STAT 02/18/2025 4:03 PM CDT CMP (COMPREHENSIVE METABOLIC PANEL) STAT 09/26/2018 1:36 PM KETTLE CHIPPER from Last 3 Months or Most Recently Relevant to Health Maintenance Results * FISH BCR/ABL T(9;22) FOR CML/ALL (06/02/2025 1:45 PM CDT) GP/(CML)BCR/ABL,T( 9;22)FISH Negative [facility] BCR/ABL1 - Normal Nuclei 100.00 % [facility] Comment: INTERPRETATION : No evidence of BCR/ABL rearrangement. PROBE TYPE : Dual Color / Dual Fusion CATALOG ID: [employer] [id number] ISCN NOMENCLATURE: nuc rashawn(ABL1,BCR)x2[300] NORMAL BACKGROUND CUTOFF VALUE(S): (PB and BM): 0.4% for dual fusion, 9.2% for single fusion Note: Positive signals detected below the determined cutoff value are considered a negative result. For any given probe, a cutoff value is determined by serial analysis of normal cases, and is an artifact inherent to the methodology. Automated imaging analysis performed using the [employer] Imaging System on a [employer] slide scanning platform, [employer] [facility], [facility], [place] Clinical Information ICD-10 code D72.829 [facility] Comment: REFERENCES: 1. Mahogany Wan and Adrienne Liu. Cancer Cytogenetics, 3nd edition, [employer], [employer] 2009. ASSOCIATED TESTS: 10-color Flow Cytometry analysis for Acute Leukemia and Myeloid/Lymphoid Neoplasms released on: 06/04/2025 She[employer]() Advanced NGS Myeloid Report DISCLAIMER: The following probes contain 2 or more separate fluorochromes and are considered multiplex probes: 1q21/CKS1B, 4q12 for PDGFRalpha, AML1/ETO, BCR/ABL1, BCL6, CBFB for inv(16), [id number]/XCE7 for -7/7q-, IGH/BCL2, IGH/CCND1, IGH/FGFR3, IGH/MAF, IGH/MYC, IGH (14q32),MDM2, MET, MLL for t(11q23), MYC BA, PML/JESSICA, PTEN 10q23, ROS1, XL5q31, XL t(14;20) IGH/MAFB, XL JESSICA (17q21), XL FOXO1, 1p36/19q, XL SS18, XL EWSR1(22q12), PDGFRB, XL FGFR1 BA. CEP 8, CEP 12, CEP X/Y, ALK (2p23), Uro[employer]ion and HER2/katherine by FISH probes are FDA cleared. For discussion of prognosis implications, the physician and/or patient may consult with a genetic counselor and/or a genetic specialist. These tests were developed and their performance characteristics were determined by [employer]. They may not be cleared or approved by the U.S. Food and Drug Administration. The FDA does not require these test to go through premarket FDA review. These tests are used for clinical purposes. It should not be regarded as investigational or for research. [employer] is certified under the Clinical Laboratory Improvement Amendments of 1988 CLIA as qualified to perform high complexity clinical testing. ELECTRONIC SIGNATURE: Marah Bolton M.D., Ph.D. Hematopathologist, ex. [phone] This report was electronically signed. Other 06/02/2025 1:45 PM CDT Narrative [facility] 06/07/2025 12:15 PM CDT Testing performed at: [employer], [employer]. [address] [place] [address], Aircraft Technician: Dr. Mason Giron M.D.; [facility] Accn#:[id number] Release to patient->Immediate Clinical History/Impression->Leukocytosis Specimen Source (BM, Cytogenetics, or Flow)->Blood us Janine Pardo MD PATHOLOGY/CYTOLOGY ORDERABLES Fi nal Result [facility] [place] [address], * C-REACTIVE PROTEIN, [place] (06/02/2025 1:45 PM CDT) C-REACTIVE PROTEIN, QUANT 2 0 - 10 MG/L [facility] 06/02/2025 1:45 PM CDT Narrative [facility] - 06/03/2025 7:08 AM CDT TESTING PERFORMED AT: [] [facility], [address] [place] [address], [place], [address], PHONE: [phone], COOK CHILL TECHNICIAN: JACKIE GARCIA, PHD Janine Pardo MD LAB SEND OUTS Final Result [facility] [place] [address], * ONKOSIGHT ADVANCED NGS MYELOID PANEL (06/02/2025 1:45 PM CDT) [facility] MYELOID PANEL, [place] TL95-4 NORMAL [facility] Comment: [employer] Advanced NGS Myeloid Panel Final Report - RESULT SUMMARY: NORMAL - DETECTED GENOMIC ALTERATIONS: No Mutations Identified - TUMOR TYPE: Not Provided - CLINICAL INFORMATION: Provided ICD-10 code: D72.829 (elevated white blood cell count, unspecified). - PERTINENT NEGATIVE RESULTS: The following genes are NEGATIVE for clinically relevant mutations. Mutational hotspots and surrounding exonic regions were interrogated for DNA level point mutations and indels (fusions not assayed). ABL1, ANKRD26, ASXL1, ATRX, BCOR, BCORL1, BRAF, CALR, CBL, CCND2, CDKN2A, CEBPA, CSF3R, CUX1, DDX41, DNMT3A, ETNK1, ETV6, EZH2, FBXW7, FLT3, GATA2, HRAS, IDH1, IDH2, JAK2, KDM6A, KIT, KMT2A, KRAS, MAP2K1, MPL, MYD88, NF1, NPM1, NRAS, PDGFRA, PHF6, PTEN, PTPN11, RUNX1, SETBP1, SF3B1, SRSF2, STAG2, TET2, TP53, U2AF1, WT1, ZRSR2 - MUTATIONAL HOTSPOTS: The following recurrently mutated codons demonstrated adequate sequencing coverage depths and show wild type sequences only. Gene: ABL1 Codons: 235, 244, 250, 252, 253, 255, 299, 311, 315, 317, 351, 359, 396 Gene: ASXL1 Codons: 635, 646 Gene: BCOR Codons: 1459 Gene: BRAF Codons: 581, 594, 597, 600, 601 Gene: CALR Codons: 367, 385 Gene: CBL Codons: 420 Gene: CSF3R Codons: 618 Gene: DNMT3A Codons: 882 Gene: EZH2 Codons: 646 Gene: FLT3 Codons: 835 Gene: HRAS Codons: 12, 13, 61 Gene: IDH1 Codons: 132 Gene: IDH2 Codons: 140, 172 Gene: JAK2 Codons: 533, 534, 535, 536, 537, 538, 539, 540, 541, 542, 543, 544, 545, 546, 547, 617 Gene: KIT Codons: 557, 559, 560, 576, 642, 816, 820, 822 Gene: KRAS Codons: 12, 13, 59, 60, 61 Gene: MPL Codons: 515 Gene: MYD88 Codons: 265 Gene: NPM1 Codons: 288 Gene: NRAS Codons: 12, 13, 61 Gene: PTEN Codons: 92, 93, 130, 132, 136, 212, 233 Gene: PTPN11 Codons: 61, 69, 72, 76, 503, 510 Gene: SETBP1 Codons: 868, 870 Gene: SF3B1 Codons: 623, 666, 700, 741 Gene: SRSF2 Codons: 95 Gene: TP53 Codons: 175, 213, 245, 248, 273, 282 Gene: U2AF1 Codons: 34, 157 The following recurrently mutated codons demonstrated inadequate sequencing coverage depths (<100x), and the possibility of undersensitive detection cannot be excluded. Not Applicable - TRANSCRIPT ACCESSIONS FOR INTERROGATED GENES: Gene: ABL1 Transcript ID: [id number] Gene: ANKRD26 Transcript ID: [id number] Gene: ASXL1 Transcript ID: [id number] Gene: ATRX Transcript ID: [id number] Gene: BCOR Transcript ID: [id number] Gene: BCORL1 Transcript ID: [id number] Gene: BRAF Transcript ID: [id number] Gene: CALR Transcript ID: [id number] Gene: CBL Transcript ID: [id number] Gene: CCND2 Transcript ID: [id number] Gene: CDKN2A Transcript ID: [id number] Gene: CEBPA Transcript ID: [id number] Gene: CSF3R Transcript ID: [id number] Gene: CUX1 Transcript ID: [id number] Gene: DDX41 Transcript ID: [id number] Gene: DNMT3A Transcript ID: [id number] Gene: ETNK1 Transcript ID: [id number] Gene: ETV6 Transcript ID: [id number] Gene: EZH2 Transcript ID: [id number] Gene: FBXW7 Transcript ID: [id number] Gene: FLT3 Transcript ID: [id number] Gene: GATA2 Transcript ID: [id number] Gene: HRAS Transcript ID: [id number] Gene: IDH1 Transcript ID: [id number] Gene: IDH2 Transcript ID: [id number] Gene: JAK2 Transcript ID: [id number] Gene: KDM6A Transcript ID: [id number] Gene: KIT Transcript ID: [id number] Gene: KMT2A Transcript ID: [id number] Gene: KRAS Transcript ID: [id number] Gene: MAP2K1 Transcript ID: [id number] Gene: MPL Transcript ID: [id number] Gene: MYD88 Transcript ID: [id number] Gene: NF1 Transcript ID: [id number] Gene: NPM1 Transcript ID: [id number] Gene: NRAS Transcript ID: [id number] Gene: PDGFRA Transcript ID: [id number] Gene: PHF6 Transcript ID: [id number] Gene: PTEN Transcript ID: [id number] Gene: PTPN11 Transcript ID: [id number] Gene: RUNX1 Transcript ID: [id number] Gene: SETBP1 Transcript ID: [id number] Gene: SF3B1 Transcript ID: [id number] Gene: SRSF2 Transcript ID: [id number] Gene: STAG2 Transcript ID: [id number] Gene: TET2 Transcript ID: [id number] Gene: TP53 Transcript ID: [id number] Gene: U2AF1 Transcript ID: [id number] Gene: WT1 Transcript ID: [id number] Gene: ZRSR2 Transcript ID: [id number] - COVERAGE DEPTHS: Among the following targeted exons, >50% of coding sequences failed to achieve >100x coverage depths. Analytic sensitivity for potentially relevant genomic alterations may therefore be limited among the following interrogated loci: Not Applicable INTERPRETATION SUMMARY, [place] 170693-8 SEE BELOW [facility] Comment: INTERPRETATION SUMMARY: - This was a NORMAL sequencing study in which no disease associated mutations or variants of unclear significance were identified in the tested specimen. The absence of mutations should be interpreted in the context of other clinical and pathologic findings. Normal sequencing results may be a consequence of testing a sample with little or no neoplastic cells present. Clinical and pathologic correlation is required to interpret these findings. [place], [place] 677606-2 SEE BELOW [facility] Comment: METHODS: Tissue macrodissection and DNA isolation from tumor enriched areas are based on histologic review by an appropriately board certified pathologist; specimens with minimal tumor cellularity may be rejected. Nucleic acid is isolated from the submitted specimen. Anchored Multiplex PCR (AMP) is performed to generate target-enriched next generation sequencing (NGS) libraries. AMP utilizes unidirectional gene-specific primer (GSP) oligonucleotides that enrich for both known and unknown mutations. Each genomic DNA fragment is also tagged with a unique molecular identifier sequence (CONNIE), used after sequencing on an Illumina Watchfinderq instrument ([place], [place]) with paired end, 151 base pair reads to collapse PCR duplicates and enable accurate counting of variant allelic frequencies. A minimum number of 100 unique reads (after removal of PCR duplicates) to detect a mutation is required. An automated process that takes into account statistical confidence of base calling and alignment and mapping quality identifies variants ([employer] Software version 6.2.7, Released 05 Apr 2020). Following mapping of the read data to the human genome (reference build GRCh37/hg19), single nucleotide variants (SNVs), and insertion deletion events (Indels) with an allele frequency (AF) greater than 2% are detected utilizing [employer] bioinformatic analytical pipeline with the exception of FLT3 (0.8% AF), JAK2 p.V617F (0.8% AF) and MYD88 p.L265P (1% AF). Detection of Insertions larger than 63 bases have not been validated. Detection of Deletions larger than 52 bases have not been validated. Reported variants include known disease associated mutations and unclear variants with little or no literature support. Benign population polymorphisms are not included in the report. For low level FLT3 internal tandem duplication (ITD) and/or FLT3 tyrosine kinase domain (TKD) variant(s) orthogonal polymerase chain reaction (PCR) testing confirmations, a multiplex PCR is performed followed by digestion with a restriction endonuclease. Products are by capillary electrophoresis using an [employer] Genetic Analyzer ([employer], [place], [place]) and data was analyzed with [employer]. The FLT3-ITD mutation status is determined by calculating the allele ratio (AR) as the ratio of the area under the curve of mutant to wild type alleles. The FLT3-TKD mutation status is determined by calculating the variant allele frequency (VAF) as a percentage of mutant alleles to mutant and wild type alleles. The limit of detection is 0.07 AR and 5% VAF for FLT3-ITD and FLT3-TKD (D835, I836) variants, respectively. The mutation hotspots of the following genes were interrogated by this test: ABL1, ANKRD26, ASXL1, ATRX, BCOR, BCORL1, BRAF, CALR, CBL, CCND2, CDKN2A, CEBPA, CSF3R, CUX1, DDX41, DNMT3A,ETNK1, ETV6, EZH2, FBXW7, FLT3, GATA2, HRAS, IDH1, IDH2, JAK2 (inclusive of V617F & exon 12), KDM6A, KIT, KMT2A, KRAS, MAP2K1, MPL, MYD88, NF1, NPM1, NRAS, PDGFRA, PHF6, PTEN, PTPN11, RUNX1, SETBP1, SF3B1, SRSF2, STAG2, TET2, TP53, U2AF1, WT1, ZRSR2.Variant Tier categorization is rendered in accordance with the AMP/ASCO/CAP consensus recommendations (see Li et al. Standards and Guidelines for the Interpretation and Reporting of Sequence Variants in Cancer: A Joint Consensus Recommendation of the Association for Molecular Pathology, [place] Society of Clinical Oncology, and [employer] [place] [employer]. The Journal of molecular diagnostics: JMD. 2017 Nov;19(1):4-23. doi: 10.1016/j.jmoldx.2016.10.002. PubMed Central PMCID: HEF0731050. PubMed PMID: (98245455)). OnkoSightAdvanced was developed and its performance characteristics were determined by [employer], a division of [employer]. This test has not been cleared or approved by the US Food and Drug Administration (FDA). The FDA has determined that such a clearance or approval is not necessary. Pursuant to the requirements of CLIA'88, this laboratory has established and verified the tests accuracy and precision. However, a false positive or false negative result incurred during any phase of the testing cannot be completely excluded. Large insertion/deletion (eg. FLT3-ITD aberrations) may not be detected by this assay due to the limit of sequencing read length and bioinformatics processing. This assay does not detect translocation/gene fusion. This assay does not determine variant causality, or whether a variant is inherited or somatically acquired. These results may be used for clinical or research purposes and therefore should be carefully considered within the context of other clinical and laboratory data. In the absence of an appropriate clinical context, the clinical utility of OnkoSighttesting is not clearly defined. The information contained in this report reflects the current interpretation of the findings as of the date of the report, based on the available scientific information. This information, which comes from numerous sources, is subject to change house attendant time in response to future scientific and medical findings and correlations. [employer]. makes no representation or warranty of any kind regarding the accuracy of information provided or contained in these manuscripts, references or other sources of information. If any of the information provided by or contained in the referenced material is later deemed to be inaccurate, this may impact the accuracy of this report and interpretation of the findings. [employer]. is not obligated to notify you of any impact that additional or modified information, or future scientific or medical research may have on this report. The laboratory is not responsible for reanalysis of the data or updated classification of this report or past reportsfindings as the knowledge evolves. A medical provider can request a reassessment of clinical significance of variants and/or re-review of the clinical interpretation of the findings. Additional charges may apply for the updated report. Please contact the laboratory for more information if update is requested. This assay has been approved by the [facility] based on initial validation; orthogonal testing for full validation is currently ongoing. Please contact the laboratory for more information if update is requested. [place], [place] 125326-7 SEE BELOW [facility] Comment: REFERENCES: 1. Li MM, Beth M, Horacio EJ, Blas S, Audra NI, Shawn S, Farzad AM, Carmella CL, Francisco DJ, Sarah A, Kenneth MN. Standards and Guidelines for the Interpretation and Reporting of Sequence Variants in Cancer: A Joint Consensus Recommendation of the Association for Molecular Pathology, [place] Society of Clinical Oncology, and [employer] of [place] [employer]. The Journal of molecular diagnostics : JMD. 2017 Nov;19(1):4-23. doi: 10.1016/j.jmoldx.2016.10.002. PubMed PMID: 10203448. PubMed Central PMCID: DSD4981402. 2. Genome Aggregation Database (gnomAD), [place], [place] (URL: https://gnomad.broadGameface Media, Inc.titute.org) [May,] 3. IZF576 Local [employer] Release Notes V2.1.0; February 25, 2020. h ttps://support.[employer]/content/dam/[employer]eper-support/documents /documentation/software_documentation/trusight/dkzivctt-wzhfeuid-2 00/1000000114054_00_TSO500_v2_1_Customer_Release_Notes.pdf. 4. Rachana Carolina, Maria M, Hieu R, Alessandra W, Chelsy Carr, Working Group of the [place] [employer] and Genomics ([facility]) Laboratory Beveler Committee. ACMG technical standards and guidelines for genetic testing for inherited colorectal cancer (Mckeon syndrome, familial adenomatous polyposis, and MYH-associated polyposis). Genetics in medicine : official journal of the [place] [employer] Genetics. 2014 Nov;16(1):101-16. Epub 2012Oct 14. doi: 10.1038/gim.2013.166. PubMed PMID: 34979738. 5. Bear ZR, Marian CF, Alfredo D, Amy L, Terell SM, Sy R, Marla A, Buzz B, Melina A, Tamika J, Christopher F, Alen Y, Serene J, Kortney U, Thierno M, Krishna DS, Sharon S, Jarod J, Ozzie GA, Aquiles JS, Edvin L, Reymundo VA, Ramón SCALES, Radha GM. Analysis of 100,000 human cancer genomes reveals the landscape of tumor mutational burden. Genome medicine. 2017 Feb 26;9(1):34. Epub 2016Feb 26. doi: 10.1186/n48491-289-8176-9. PubMed PMID: 17167759. PubMed Central PMCID: SDG8719293. 6. Ada JA, Renetta CM, Stanley EQ, Will MT, Jon ES, Cookie TL, Jt B, Eugenio PS, Jose N, Heidy SJ, Nicolas CC. Microsatellite instability in prostate cancer by PCR or next-generation sequencing. Journal for immunotherapy of cancer. 2018 Feb 24;6(1):29. Epub 2017Feb 24. doi: 10.1186/m97361-671-2059-p. PubMed PMID: 45999710. PubMed Central PMCID: DHQ1669432. 7. Kayden A, Mireya K, Sarahy S, Bjorn M, Sameera K, Landry J, Jean Carlos B, Do G. Molecular Diagnostics of Gliomas Using Next Generation Sequencing of a Glioma-Tailored Gene Panel. Brain pathology ([place], [place]). 2017 Jan;27(2):146-159. Epub 2015Feb 26. doi: 10.1111/bpa.50517. PubMed PMID: 33866456. 8. Jose C, Enrique LM, Li X, David WK, Jose W. IDH1/2 mutations target a mederos hallmark of cancer by deregulating cellular metabolism in glioma. Neuro-oncology. 2013 Jul;15(9):1114-26. Epub 2012May 30. doi: 10.1093/neuonc/eic675. PubMed PMID: 25076626. PubMed Central PMCID: NGK9528270. 9. Kenneth SOSA, Callie AI, Josey MA, Shawn S, Lemuel S, Emiliano RL, Fidel FS, Margarita J, Christine NM, Dione IF, Mark YE, Blaise Castillo. Targeted next-generation sequencing panel (GlioSeq) provides comprehensive genetic profiling of central nervous system tumors. Neuro-oncology. 2016 Jan;18(3):379-87. Epub 2014Oct 26. doi: 10.1093/neuonc/mei804. PubMed PMID: 42279279. PubMed Central PMCID: NJH8120013. 10. Declan PJ, Cash A, Az HJ, Horacio EJ. A wide spectrum of EGFR mutations in glioblastoma is detected by a single clinical oncology targeted next-generation sequencing panel. Experimental and molecular pathology. 2015 Rogers;98(3):568-73. Epub 2015 Mar 01. doi: 10.1016/j.yexmp.2015.04.006. PubMed PMID: 85198234. PubMed Central PMCID: QDQ5054368. [place] 719284-0 SEE BELOW [facility] Comment: Tim Driscoll M.D., Aircraft Technician Electronically signed by Asif May, PhD, [facility] [employer] is a division of [employer] [facility] [place] [address] Created FriJun 08 15:25:02 EDT 2024 Blood 06/02/2025 1:45 PM CDT Narrative [facility] - 06/08/2025 3:45 PM CDT Testing performed at: [employer]. [facility] [address] [address], Aircraft Technician: Dr. Mason Giron M.D.; [facility] Accn#:[id number] Release to patient->Immediate us Janine Pardo MD LAB SEND OUTS Final Result [facility] [place] [address] [place] [address], * LDH [id number] [place] (06/02/2025 1:45 PM CDT) LDH 177 119 - 226 IU/L [facility] 06/02/2025 1:45 PM CDT Narrative [facility] - 06/03/2025 7:08 AM CDT TESTING PERFORMED AT: [] [facility], [address] [place] [address], [place], [address], PHONE: [phone], COOK CHILL TECHNICIAN: JACKIE GARCIA, PHD Janine Pardo MD LAB SEND OUTS Final Result [facility] [address] [place] [address], * (ABNORMAL) COMP. METABOLIC PANEL [id number] [place] (06/02/2025 1:45 PM CDT) GLUCOSE, SERUM 169(H) 70 - 99 MG/DL [facility] BUN 11 6 - 24 MG/DL [facility] [facility] CREATININE, SERUM 0.83 0.57 - 1.00 MG/DL [facility] EGFR 91 >59 ML/MIN/1.7 3 [facility] BUN/CREATININE RATIO 13 9 - 23 [facility] SODIUM, SERUM 142 134 - 144 MMOL/L [facility] POTASSIUM, SERUM 4.0 3.5 - 5.2 MMOL/L [facility] [place] [facility] CHLORIDE, SERUM 106 96 - 106 MMOL/L [facility] CARBON DIOXIDE, TOTAL 22 20 - 29 MMOL/L [facility] [place] CALCIUM, SERUM 8.8 8.7 - 10.2 MG/DL [facility] [place] [facility] PROTEIN, TOTAL, SERUM 6.5 6.0 - 8.5 G/DL [facility] ALBUMIN, SERUM 4.0 3.9 - 4.9 G/DL [facility] GLOBULIN, TOTAL 2.5 1.5 - 4.5 G/DL [facility] BILIRUBIN, TOTAL 0.4 0.0 - 1.2 MG/DL [facility] ALKALINE PHOSPHATASE, S 43(L) 44 - 121 IU/L [facility] AST (SGOT) 23 0 - 40 IU/L [facility] ALT (SGPT) 31 0 - 32 IU/L [facility] 06/02/2025 1:45 PM CDT Narrative [facility] - 06/03/2025 6:07 AM CDT TESTING PERFORMED AT: [] [facility], [address] [place] [address], [address], PHONE: [phone], COOK CHILL TECHNICIAN: JACKIE GARCIA, PHD Janine Pardo MD LAB SEND OUTS Final Result [facility] [address] [place] [address], * FLOW MYE/LYM + ACUTE [place] [id number] (06/02/2025 1:45 PM CDT) ACUTE 10 COLOR PANEL Negative [facility] Comment: INTERPRETATION PERIPHERAL BLOOD: - Flow cytometric analysis does not show significant numbers of circulating blasts or an abnormal lymphoid or myeloid population. - See comments. COMMENT Myeloproliferative neoplasms (MDN's) may not display antigenic variation on the myeloid component, and cannot be excluded by a normal flow cytometry immunophenotype. BCR/ABL and NGS studies to follow. CLINICAL INFORMATION: ICD-10 code D72.829 DIAGNOSIS CODE(S): D72.829 SPECIMEN COMMENT: 2 GREEN AND 2 PURPLE DX: LEUKOCYTOSIS IMMUNOPHENTYPIC ANALYSIS: No Abnormal Cells Present Viability 7AAD: 99.28% There is a mixed population of neutrophils, monocytes, and lymphocytes. There are no circulating blasts identified. Neutrophils (70.71%) do not display an aberrant phenotype. The orthogonal side scatter is normal. No significant number of CD56+ or CD10-/CD16- neutrophils is noted. Monocytes (9.04%) appear mature (CD14+/CD64+) and do not display overt phenotypic atypia. B-cells (2.66%) are polytypic. T-cells (12.14%) show no deletion or abnormal dim expression of hampton-T-cell antigens on significant subset of cells. The CD7- T-cells are within normal range (<15%). The CD4:CD8 ratio is 3.43:1. The T-LGL cells comprise 2.08%. DISCLAIMER: Antibodies Analyzed: CD19,CD20,CD10,CD11c,CD23,CD22,CD25,CD71,CD81,CD103,CD200,Badger,L ambda,CD2,CD3,CD4,CD5,CD7,CD8,CD56,CD57,CD11b,CD13,CD14,CD15,CD16 ,CD33,CD64,CD34,CD38,CD117,CD123,CD133,HLA-DR,CD45. - This test was developed and its performance characteristics determined by [employer]. It has not been cleared or approved by the US Food and Drug Administration. The FDA does not require this test to go through premarket FDA review. This test is used for clinical purposes. It should not be regarded as investigational or for research. This laboratory is certified under the Clinical Laboratory Improvement Amendments (CLIA) as qualified to perform high complexity clinical laboratory testing. - The following are reference ranges for normal bone marrow (BM) and peripheral blood (PB) cases were established on analysis of 120 cases (based on the expression of CD13 and CD33 for granulocytes/neutrophils, CD14 and CD64 for monocytes, CD19, CD20 and CD22 for B-cells, CD2, CD3, CD5 and CD7 for T-cells based, CD34 and CD117 for blasts). For age group 18-65 years (average +/- SD), BM: granulocytes 60.3% (+/-20.1); B-cells 1.4 (+/- 1.1); T-cells 9.8 (+/- 6.1); blasts 1.2 (+/-0.9) and monocytes 3.4 (+/- 3.3); PB: neutrophils 50.8% (+/-17.9); B-cells 4.5 (+/- 2.6), T-cells 22.7 (+/- 10.4), blasts 0.2 (+/-0.2) and monocytes 4.2 (+/- 2.0). For age group >65 years (average +/- SD), BM: granulocytes 60.6% (+/-20.0); B-cells 1.4 (+/- 1.6), T-cells 8.2 (+/- 6.1), blasts 1.1 (+/-0.7) and monocytes 4.0 (+/- 4.4); PB: neutrophils 50.3% (+/-18.4); B-cells 3.5 (+/- 2.4), T-cells 22.9 (+/- 9.6), blasts 0.2 (+/-0.2) and monocytes 4.5 (+/- 2.1). - The performance characteristics of body fluids by flow cytometry have not been fully determined and should be evaluated in the context of the patient's clinical status. ASSOCIATED TESTS: Fluorescence In-Situ Hybridization (FISH) [facility](TM) Advanced NGS Myeloid Report ELECTRONIC SIGNATURE: Pedro Ragland D.O. Hematopathologist, ex. [phone] This report was electronically signed. 06/02/2025 1:45 PM CDT [facility] - 06/04/2025 10:45 AM CDT Testing performed at: [employer], [employer]. [address] [place] [address], Aircraft Technician: Dr. Mason Giron M.D.; [facility] Accn#:[id number] Janine Pardo MD LAB SEND OUTS Final Result [facility] [place] [address], * (ABNORMAL) COMPLETE BLOOD COUNT (CBC) WITH DIFF (06/02/2025 1:45 PM CDT) WBC 15.2(H) 4.0 - 10.0 10*3/uL [facility] HGB 14.6 11.2 - 15.7 g/dL [facility] HCT 45.5(H) 34.1 - 44.9 % [facility] PLT 261 163 - 369 10*3/uL [facility] MPV 10.2 9.4 - 12.4 fL [facility] RBC 4.88 3.93 - 5.22 10*6/uL [facility] MCV 93 79 - 95 fL [facility] MCH 29.9 25.6 - 32.2 pg [facility] MCHC 32.1(L) 32.2 - 36.5 g/dL [facility] RDW 14.8(H) 11.6 - 14.4 % [facility] Absolute Neutrophil Count 10,966 cells/uL [facility] Absolute Seg Count 10,966(H) 1,440 - 6,600 cells/uL [facility] Absolute Lymph Count 3,046 760 - 4,000 cells/uL [facility] Absolute [place] Count 1,066 160 - 1,200 cells/uL [facility] Absolute Baso Count 152(H) 0 - 100 cells/uL [facility] Segmented Neutrophils 72(H) 36 - 66 % [facility] Lymphocytes 20 19 - 40 % [facility] Monocytes 7 4 - 12 % [facility] Basophils 1 0 - 1 % [facility] WBC Estimate High [facility] Platelet Estimate Normal [facility] RBC Morphology Normal [facility] Blood 06/02/2025 1:45 PM CDT Narrative [facility] - 06/02/2025 3:07 PM CDT Release to patient->Immediate us Janine Pardo MD HEMATOLOGY ORDERABLES Final Resu lt [facility] [place] [address], * (ABNORMAL) Hemoglobin A1C w/ Estimated Glucose (02/18/2025 4:03 PM CDT) HGB-A1C 7.3(H) 4.0 - 6.0 % 02/18/2025 9:08 PM CDT [facility] Est Average Glucose 162.8 mg/dL 02/18/2025 9:08 PM CDT [facility] Blood Venipuncture / Unknown 02/18/2025 4:03 PM CDT 02/18/2025 4:24 PM CDT Narrative [facility] - 02/18/2025 9:08 PM CDT HEMOGLOBIN A1C: DIABETIC PATIENTS: WELL-CONTROLLED: 6.2 - 7.0 INTERMEDIATE WELL-CONTROLLED: 7.0 - 9.0 POORLY-CONTROLLED: >9.0 Specimens containing greater than 5% of Hemoglobin F may result in lower than expected % HbA1C results. us Florecita Wyman APRN, CNP CHEMISTRY ORDERABLES Final Result [facility] [address] [place] [address] * (ABNORMAL) CMP (Comprehensive Metabolic Panel) (09/26/2018 1:36 PM [facility] CHIPPER) SODIUM 139 136 - 144 mmol/L 09/26/2018 2:12 PM [facility] POTASSIUM 3.8 3.5 - 5.1 mmol/L 09/26/2018 2:12 PM [facility] CHLORIDE 103 100 - 110 mmol/L 09/26/2018 2:12 PM [facility] CO2, VENOUS 25 22 - 32 mmol/L 09/26/2018 2:12 PM [facility] ANION GAP 14.8 8.0 - 20.0 mmol/L 09/26/2018 2:12 PM [facility] GLUCOSE 100(H) 70 - 99 mg/dL 09/26/2018 2:12 PM [facility] BUN 18 6 - 20 mg/dL 09/26/2018 2:12 PM [facility] CREATININE, BLOOD 1.22(H) 0.60 - 1.10 mg/dL 09/26/2018 2:12 PM [facility] BUN/CREATININE RATIO 15 12 - 20 ratio 09/26/2018 2:12 PM [facility] TOTAL PROTEIN 7.1 6.0 - 8.3 g/dL 09/26/2018 2:12 PM [facility] ALBUMIN 3.9 3.5 - 5.2 g/dL 09/26/2018 2:12 PM [facility] Comment: The colormetric methods used for the determination of Albumin may lead to falsely elevated test results in patients suffering from renal failure or insufficiency due to interference with other proteins. A/G RATIO 1.2 1.0 - 2.0 09/26/2018 2:12 PM [facility] CALCIUM 8.6(L) 8.9 - 10.3 mg/dL 09/26/2018 2:12 PM [facility] T BILI 0.3 <=1.2 mg/dL 09/26/2018 2:12 PM [facility] SGOT (AST) 18 <=32 U/L 09/26/2018 2:12 PM [facility] SGPT (ALT) 16 <=33 U/L 09/26/2018 2:12 PM [facility] ALKALINE PHOSPHATASE 41 35 - 105 U/L 09/26/2018 2:12 PM [facility] GFR, EST. NONAFRICAN 50(L) >=60 09/26/2018 2:12 PM [facility] GFR, EST. >60 >=60 018 2:12 PM [facility] Comment: Creatinine Clearance is the preferred criteria for selecting drug dose adjustments in renally impaired patients. The GFR is provided as additional pertinent clinical information. GFR is reported in mL/min/1.73 sq m. Blood specimen (specimen) Butterfly Puncture / Unknown 09/26/2018 1:36 PM K[facility]TLE CHIPPER 09/26/2018 1:46 PM KETTLE CHIPPER Rowdy Richards MD CHEMISTRY ORDERABLES Final Result [facility] [place] [address] from Last 3 Months or Most Recently Relevant to Health Maintenance Insurance AMBETTER AMBETTER Advance Directives * Full Code (Latest Code Status on File) Date Activated Date Inactivated Comments 02/18/2025 8:34 PM CPR-Full Treat ment: FULL ARREST: Attempt Resuscitation/CPR wit intubation and mechanical ventilation. PRE-ARREST: Use entire range of life support measures to stabilize the patient. Care Teams Fiber Technician Relationship Specialty Start Date End Date Dana Roy MD [address] [place] [address] PCP - General Family Medicine 03/21/21 Janine Pardo MD [address] [place] [address] [phone] Consulting Physician Oncology 05/17/25
--- OUTSIDE RECORDS SUMMARY | 2025-07-19 08:28 | XMS_ITS | Clinical Summary ---
Author Organization [facility] Address [address] [place] [address] Care Team Providers Care Pitch Worker Name Role Phone Deja Walker DO Primary Care Provider [phone] Allergies Active Allergy Reactions Criticality Noted Date [...] pain 02/26/2022 Adiposity 01/05/2015 Overview (02/13/2017): Obesity Encounters Date Type Department Care Team Description 07/08/2025 Telephone [facility] Medicine Ophthalmology [address] [place], [place] [id number] Ilsa Subramanian MD [facility] 05/04/2025 6:30 PM CDT - 05/04/2025 11:49 PM CDT Emergency [facility] Emergency Department [address] [place] [address] Jose Holcomb MD Chest pain, unspecified type (Primary Dx); Anxiety Discharge Disposition: Discharge to home or self care from Last 3 Months Immunizations Immunization Administration Dates Next Due Influenza, Unspecified 10/15/2023 Surgical History Surgery Date Site/Laterality Comments CHOLECYSTECTOMY Cholecystectomy OTHER SURGICAL HISTORY 2014 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 Gender Identity Not on file Sexual Orientation Not on file Obstetrics History Last Filed Vital Signs Vital Sign Reading Time Taken Comments Blood Pressure 131/83 05/04/2025 11:00 PM CDT Pulse 103 05/04/2025 11:00 PM CDT Temperature 36.2 C (97.1 F) 05/04/2025 6:15 PM CDT Respiratory Rate 17 05/04/2025 11:00 PM CDT Oxygen Saturation 92% 05/04/2025 11:00 PM CDT Inhaled Oxygen Concentration - - Weight 163.3 kg (360 lb) 05/04/2025 6:15 PM CDT Height 170.2 cm (5' 7) 05/04/2025 6:15 PM CDT Body Mass Index 56.38 05/04/2025 6:15 PM CDT Plan of Treatment Health Maintenance Due Date Last Done Comments Albumin Creatinine Ratio, Urine 1983 Breast Cancer Screening-Mammogram 1983 Cervical Cancer Screening 1983 Depression Screening 1983 Hemoglobin A1C 1983 Hepatitis C Screening 1983 Dilated Eye Exam 1983 Foot Exam 1983 Varicella Vaccines (1 of 2 - 13+ 2-dose series) 1996 Hepatitis B Screening 2001 Regular Well Visit/Exam 18-64 2001 Pneumococcal vaccine <65 (1 of 2 - PCV) 2002 HPV Vaccines (1 - 3-dose SCD M series) 2010 DTaP/Tdap/Td Vaccine (1 - Tdap) 10/12/2013 3 Covid-19 Vaccine (3 - 2023-2 5 season) 2024 07/07/2021, 06/16/2021 Influenza Vaccine (#1) 2025 , 10/15/2023, 10/08/2023, Additional history exists Lipid Panel 02/19/2026 02/19/2025 eGFR 05/04/2026 05/04/2025, 10/10, 10/19/2023, Additional history exists Medical Devices Implanted Type Area Gang Boss Device Identifier Shelf Expiration Date Model / Serial / Lot [employer] 192-123 Nemediais Ultra Nautilus 5fr 2.1fr 26cm 2 Durometer Taper Tip Low Latex Free - [id number] Implanted:Qty: 1 on 10/01/2018 by Jaden Olivera MD at [facility] Stent Right: [employer] [place] [employer] 06/14/2021 192-123 / / [id number] Procedures Procedure Name Priority Date/Time Associated Diagnosis Comments TROPONIN T HIGH-SENSITIVITY 4-HR Timed 05/04/2025 10:20 PM CDT TROPONIN T HIGH-SENSITIVITY 2-HOUR Timed 05/04/2025 8:58 PM CDT XR CHEST PA LATERAL 2 VIEWS ED 05/04/2025 6:36 PM CDT EGFR STAT 05/04/2025 6:28 PM CDT DIFFERENTIAL AUTO STAT 05/04/2025 6:2 8 PM CDT TROPONIN T HIGH-SENSITIVITY SERIES (BASELINE, 2HR, 4HR, 6HR) STAT 05/04/2025 6:28 PM CDT COMPREHENSIVE METABOLIC PANEL STAT 05/04/2025 6:28 PM CDT CBC WITH AUTO DIFFERENTIAL STAT 05/04/2025 6:28 PM CDT ECG 12-LEAD STAT 05/04/2025 6:20 PM CDT from Last 3 Months Results * Troponin T high-sensitivity 4-hour (05/04/2025 10:20 PM CDT) Trop T hs <6 <=14 ng/L Comment: Interpretive Data For further hscTnT resources including the diagnostic algorithm and an aid in interpretation, copy and paste this link: https://nrl.[email or web address]/show/hsTrop Current Interpretive Data last revised 2020. Trop T hs delta -1 ng/L [facility] ([facility]) Trop T hs interp Insignificant [facility] ([place]) Blood 05/04/2025 10:2 0 PM CDT 05/04/2025 10:24 PM CDT us Jose Holcomb MD LAB BLOOD ORDERABLES Final Res ult [facility] SANTOSH ([place]) 1 [facility] [place] [address] * Troponin T high-sensitivity 2-hour (05/04/2025 8:58 PM CDT) Trop T hs See Comment <=14 Comment: cannot perform test due to hemolysis Interpretive Data For further hscTnT resources including the diagnostic algorithm and an aid in interpretation, copy and paste this link: https://nrl.[employer].org/show/hsTrop Current Interpretive Data last revised 2020. Trop T hs interp See Comment [facility] ([place]) Comment:cannot perform test due to hemolysis Blood 05/04/2025 8:58 PM CDT 05/04/2025 9:00 PM CDT us Jose Holcomb MD LAB BLOOD ORDERABLES Final Res ult ED[facility] FROST ([place]) 1 [facility] [place] [address] * XR Chest PA Lateral 2 Views (If patient hemodynamically stable and ambulatory) (05/04/2025 6:36 PM CDT) Anatomical Region Laterality Modality Body, Chest N/A Computed Radiogr aphy 05/04/2025 7:15 PM CDT Narrative 05/04/2025 7:16 PM CDT EXAM DESCRIPTION: XR CHEST PA LATERAL 2 VIEWS REASON FOR STUDY: chest pain Pt to ED for c/o an intermittent headache all day that feels like a pressure. Pt also reports constant chest pain in the center of her chest that radiates to the left of her chest for 1.5 hours. Pt denies cardiac hx. Pt reports recent TIA. Pt also reports blurred vision since today. TECHNIQUE: PA and lateral radiographic view(s) of the chest. COMPARISON: 09/09/2017 FINDINGS: LUNGS: No discrete consolidation in either lung. No effusion or pneumothorax. HEART/MEDIASTINUM: Cardiac silhouette and mediastinal contours are within normal limits. LINES/TUBES: None. BONES: No acute osseous abnormality. Degenerative changes are noted. IMPRESSION: No acute cardiopulmonary abnormality. THIS IS AN ELECTRONICALLY VERIFIED FINAL REPORT 05/04/2025 7:16 PM - Electronically signed by Mari Pulliam M.D. TW: HAYDER Report ID: [id number] Reading Location: [id number] Procedure Note Mari Pulliam MD - 05/04/2025 EXAM DESCRIPTION: XR CHEST PA LATERAL 2 VIEWS REASON FOR STUDY: chest pain Pt to ED for c/o an intermittent headache all day that feels like a pressure. Pt also reports constant chest pain in the center of her chest that radiates to the left of her chest for 1.5 hours. Pt denies cardiachx. Pt reports recent TIA. Pt also reports blurred vision since today. TECHNIQUE: PA and lateral radiographic view(s) of the chest. COMPARISON: 09/09/2017 FINDINGS: LUNGS: No discrete consolidation in either lung. No effusion or pneumothorax. HEART/MEDIASTINUM: Cardiac silhouette and mediastinal contours are within normal limits. LINES/TUBES: None. BONES: No acute osseous abnormality. Degenerative changes are noted. IMPRESSION: No acute cardiopulmonary abnormality. THIS IS AN ELECTRONICALLY VERIFIED FINAL REPORT 05/04/2025 7:16 PM - Electronically signed by Mari Pulliam M.D. TW: HAYDER Report ID: [id number] Reading Location: [id number] Jose Holcomb MD IMG XR PROCEDURES Final Result * Troponin T high-sensitivity series (baseline, 2hr, 4hr, 6hr) (05/04/2025 6:28 PM CDT) Pathologist [facility] [place] Trop T hs 7 <=14 ng/L Comment: Interpretive Data For further hscTnT resources including the diagnostic algorithm and an aid in interpretation, copy and paste this link: https://nrl.[employer].org/show/hsTrop Current Interpretive Data last revised 2020. Blood 05/04/2025 6:28 PM CDT 05/04/2025 6:31 PM CDT Jose Holcomb MD LAB BLOOD ORDERABLES Final Res ult [facility] [place] 1 [facility] [place] [address] * eGFR (05/04/2025 6:28 PM CDT) Pathologist [facility] [place] eGFR >90 >=60 mL/min/1. 73 m2 Comment: Interpretive Data Reference Interval Normal >/= [...] interpretive data was last reviewed 2021. Blood 05/04/2025 6:28 PM CDT 05/04/2025 6:31 PM CDT us Jose Holcomb MD LAB BLOOD ORDERABLES Final Res ult [facility] ([place]) 1 [facility] [place] [address] * (ABNORMAL) Differential, auto (05/04/2025 6:28 PM CDT) Neutrophil abs 13.27(H) 1.50 - 6.50 K/cumm Imm gran abs 0.20(H) 0.00 - 0.10 K/cumm [facility] ([place]) Lymphocyte abs 3.39(H) 0.80 - 3.30 K/cumm [facility] ([place]) Monocyte abs 1.25(H) 0.20 - 0.80 K/cumm [facility] ([facility]) Eosinophil abs 0.15 0.00 - 0.50 K/cumm [facility] ([place]) Basophil abs 0.08 0.00 - 0.10 K/cumm [facility] ([place]) Neutrophil pct 72.4 % [facility] ([place]) Comment: Interpretive Data Percent cell count reference ranges are not reported, since discordance with absolute values may lead to misinterpretation of CBC data. Current Interpretive Data was last revised on 2018. Imm gran pct 1.1 % [facility] ([place] [facility]) Comment: Interpretive Data Percent cell count reference ranges are not reported, since discordance with absolute values may lead to misinterpretation of CBC data. Current Interpretive Data was last revised on 2018. Lymphocyte pct 18.5 % [facility] ([place]) Comment: Interpretive Data Percent cell count reference ranges are not reported, since discordance with absolute values may lead to misinterpretation of CBC data. Current Interpretive Data was last revised on 2018. Monocyte pct 6.8 % [facility] ([place]) Comment: Interpretive Data Percent cell count reference ranges are not reported, since discordance with absolute values may lead to misinterpretation of CBC data. Current Interpretive Data was last revised on 2018. Eosinophil pct 0.8 % [facility] ([facility]) Comment: Interpretive Data Percent cell count reference ranges are not reported, since discordance with absolute values may lead to misinterpretation of CBC data. Current Interpretive Data was last revised on 2018. Basophil pct 0.4 % [facility] ([place]) Comment: Interpretive Data Percent cell count reference ranges are not reported, since discordance with absolute values may lead to misinterpretation of CBC data. Current Interpretive Data was last revised on 2018. Blood 05/04/2025 6:28 PM CDT 05/04/2025 6:31 PM CDT us Jose Holcomb MD LAB BLOOD ORDERABLES Final Res ult [facility] FR[facility] ([place]) 1 [facility] [place] [address] * (ABNORMAL) CBC with auto differential (05/04/2025 6:28 PM CDT) WBC 18.34(H) 3.80 - 9.90 K/cumm Hgb 14.7 11.9 - 15.5 g/dL [facility] ([place] [place]) Hct 45.7(H) 35.6 - 45.5 % [facility] ([place]) Plt 301 150 - 400 K/cumm [facility] ([place]) MPV 9.9 9.1 - 12.3 fL [facility] ([place]) RBC 4.99 3.90 - 5.20 M/cumm [facility] ([place] [facility]) MCV 91.6 81.3 - 96.4 fL [facility] ([place]) MCH 29.5 27.1 - 33.3 pg [facility] ([place] [facility]) MCHC 32.2(L) 32.3 - 35.7 g/dL [facility] ([place]) RDW CV 15.2(H) 11.1 - 14.9 % [facility] ([place]) RDW SD 50.5(H) 35.7 - 48.1 fL [facility] ([place]) NRBC abs 0.00 0.00 - 0.01 K/cumm [facility] ([facility]) Blood Venous blood specimen / Unknown 05/04/2025 6:28 PM CDT 05/04/2025 6:31 PM CDT us Jose Holcomb MD LAB BLOOD ORDERABLES Final Res ult [facility] ([place]) 1 [facility] Department [place] [address] * (ABNORMAL) Comprehensive metabolic panel (05/04/2025 6:28 PM CDT) Sodium 134(L) 135 - 145 mmol/L Potassium, pl 4.5 3.3 - 4.9 mmol/L [facility] ([place]) Chloride 100 97 - 110 mmol/L [facility] ([place] [facility]) CO2 22 22 - 32 mmol/L [facility] ([place]) Anion gap 12 2 - 15 mmol/L [facility] ([place]) BUN 7 6 - 25 mg/dL [facility] ([place]) Creatinine 0.72 0.60 - 1.10 mg/dL [facility] ([place]) Glucose 210(H) 70 - 199 mg/dL [facility] ([facility]) Comment: Interpretive Data Fasting glucose >/= 126 mg/dl is diagnostic for diabetes. Fasting is defined as no caloric intake for at least 8 hours. Fasting glucose between 100 mg/dl to 125 mg/dl is diagnostic of prediabetes. In a patient with classic symptoms of hyperglycemia or hyperglycemic crisis, a random glucose >/= 200 mg/dl is diagnostic for diabetes. In the absence of unequivocal hyperglycemia, results should be confirmed by repeat testing. The classification and Diagnosis of Diabetes Diabetes Care 2021; 46: S19-S40. Current interpretive data was last revised 2022. Calcium 8.9 8.5 - 10.3 mg/dL [facility] ([facility]) Bilirubin, total 0.6 0.1 - 1.2 mg/dL [facility] ([facility]) Protein, pl 7.4 6.5 - 8.5 g/dL [facility] ([facility]) Albumin 3.8 3.5 - 5.0 g/dL [facility] ([facility]) Alk phos 48 40 - 130 Units/L [facility] ([facility]) ALT 27 7 - 45 Units/L [facility] ([place] [facility]) AST 29 10 - 45 Units/L [facility] ([place]) Comment: Hemolysis present. Results may be affected. Slightly Hemolyzed Specimen Blood 05/04/2025 6:28 PM CDT 05/04/2025 6:31 PM CDT Jose Holcomb MD LAB BLOOD ORDERABLES Final Res ult Performing Organization Address [facility] de Phone Number [facility] [place]) 1 [facility] [place] [address] * ECG 12 lead (05/04/2025 6:20 PM CDT) 05/04/2025 6:20 PM CDT Narrative [facility] - 05/05/2025 8:56 AM CDT Vent Rate: 104 bpm RR Interval: 575 msec [place] Interval: 117 msec QRS Duration: 98 msec QT Interval: 340 msec QTC Interval: 400 msec P-R-T [place]: 28 - 61 - 63 degrees IMPRESSION: SINUS TACHYCARDIA WITH SHORT WY INTERVAL LOW QRS VOLTAGE IN PRECORDIAL LEADS [QRS DEFLECTION < 1.0 mV IN CHEST LEADS] ABNORMAL RHYTHM ECG Electronically Signed By: Tito Lewis MD Jose Holcomb MD ECG ORDERABLES Final Result [facility] from Last 3 Months Insurance [facility]O Address: [facility] [id number] [place] [address] IDPA [facility] Advance Directives For more information, please contact: [phone] * Full Code (Latest Code Status on File) Date Activated Date Inactivated Comments 10/20/2023 3:21 AM 10/21/2023 10:45 PM * Full Code Date Activated Date Inactivated Comments 02/26/2022 8:54 PM 03/01/2022 5:15 PM * Full Code Date Activated Date Inactivated Comments 10/01/2018 3:53 AM 10/01/2018 7:17 PM Care Teams Pitch Worker Relationship Specialty Start Date End Date Deja Walker DO [address] [place] [address] [place] [address] PCP - General Family Medicine 05/04/25
--- OUTSIDE RECORDS SUMMARY | 2025-07-19 08:28 | XMS_ITS | Encounter Summary ---
Author Organization [facility] Address [address] [place] [address] Care Team Providers Care Traffic Enumerator Name Role Phone Chelsi Acuna CATTLE PRODUCERS-HEADING MACHINE OPERATOR Primary Care Provider Reason for Visit * Reason Onset Date Comments Surgery Scheduling 05/24/2025 Encounter Details Date Type Department Care Team (Late st Contact Info) Description 05/24/2025 Telephone [facility] - Centralized Scheduling [address] [place] [address] Marshall Hills MD [address] [address] [place] [id number] Surgery Scheduling Social History Tobacco Use Types Packs/Day Years Used Date Smoking Tobacco: Never Assessed PHQ-2 Answer Date Recorded Patient Health Questionnaire-2 Score 1 03/16/2025 Comments Unknown Sex and Gender Information Value Date Recorded Sex Assigned at Not on file 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 She would like to get her surgery scheduled, she has beentrying since March! Cbn [phone] documented in this encounter Plan of Treatment Not on file documented as of this encounter Visit Diagnoses Not on filedocumented in this encounter Care Teams Traffic Enumerator Relationship Specialty Start Date End Date Chelsi Acuna, LENA-HEADING MACHINE OPERATOR [address] [place] [address] Dr Molina [address] [place] [phone] PCP - General 01/04/15 documented as of this encounter
--- OUTSIDE RECORDS SUMMARY | 2025-07-19 08:28 | XMS_ITS | Clinical Summary ---
Author Organization [facility] Address [address] [place] [address] Care Team Providers Care Canvas Cutter Hand Name Role Phone Dana Roy MD Primary Care Provider [phone] Allergies Active Allergy Reactions Criticality Noted Date [...] Encounters Date Type Department Care Team Description 07/18/2025 Orders Only [facility] Oncology and Hematology - [place] [address] Phi Yates MD Leukocytosis, unspecified type 07/04/2025 Orders Only [facility] Oncology and Hematology - [place] [address] [place] [address] Phi Yates MD Leukocytosis, unspecified type 06/20/2025 Orders Only [facility] Oncology and Hematology - [place] [address] [place] [address] Phi Yates MD Leukocytosis, unspecified type 06/14/2025 External Device Data STL ABSTRACTION Provider, Abstract 06/06/2025 Orders Only [facility] Oncology and Hematology - [place] [address] [place] [address] Phi Yates MD Leukocytosis, unspecified type 06/01/2025 Telephone [facility] Oncology and Hematology - [place] [address] [place] [id number] Phi Yates MD cancelled appt 05/25/2025 External Device Data STL ABSTRACTION Provider, Abstract 05/24/2025 External Device Data STL ABSTRACTION Provider, Abstract 05/23/2025 Orders Only [facility] Oncology and Hematology - [place] [address] [place] [address] Phi Yates MD Leukocytosis, unspecified type 05/09/2025 Orders Only [facility] Oncology and Hematology - [place] [address] [place] [address] Phi Yates MD Leukocytosis, unspecified type 04/26/2025 External Device Data STL ABSTRACTION Provider, Abstract 04/25/2025 Orders Only [facility] Oncology and Hematology - [place] [address] [place] [id number] Phi Yates MD Leukocytosis, unspecified type from Last 3 Months Family History Medical [...] on file Legal Sex Female 4:13 PM BARBER Gender Identity Not on file Sexual Orientation Not on file Last Filed Vital Signs Vital Sign Reading Time Taken Comments Blood Pressure 123/74 12/02/2024 10:03 AM BARBER Pulse 103 12/02/2024 10:03 AM BARBER Temperature 36.2 C (97.1 F) 12/02/2024 10:03 AM BARBER Respiratory Rate 16 12/02/2024 10:03 AM BARBER Oxygen Saturation 92% 10/13/2024 3:11 PM BARBER Inhaled Oxygen Concentration - - Weight 161.5 kg (356 lb) 12/02/2024 10:03 AM BARBER Height 170.2 cm (5' 7) 10/13/2024 3:11 PM BARBER Body Mass Index 55.76 10/13/2024 3:11 PM BARBER Plan of Treatment Health Maintenance Due Date Last Done Comments DIABETES ANNUAL FOOT EXAM 2001 DIABETES ANNUAL RETINAL EXAM 2001 DIABETES MICROALBUMIN ANNUAL SCREEN 2001 LDL CHOLESTEROL ANNUAL 2001 DTAP/TDAP/TD VACCINES (1 - Tdap) 2002 HEPATITIS B VACCINES (1 of 3 - 19+ 3-dose series) 11/10 HPV/Cotest (21-29) 2004 HPV VACCINES (1 - 3-dose SCDM series) 2010 HPV/Cotest (30-65) 2013 BREAST CANCER SCREENING 2023 DIABETES HBA1C Q 6 MONTHS 05/24/2025 11/24/2024 INFLUENZA VACCINE (#1) 2025 CERVICAL CANCER SCREENING 11/24/2027 PAP SMEAR 11/24/2027 11/24/2024 Insurance [employer] CHOICE POS II [place]ICAID [place] Care Teams Canvas Cutter Hand Relationship Specialty Start Date End Date Dana Roy MD [address] [place] [address] PCP - General Family Practice 12/13/24
--- OUTSIDE RECORDS SUMMARY | 2025-07-19 08:28 | XMS_ITS | Encounter Summary ---
Author Organization [facility] Address [address] [facility] [place] [address] Care Team Providers Care Director Dance Name Role Phone Chelsi Acuna Himanshu FOXN-DCS ENGINEER Primary Care Provider Reason for Visit * Reason Onset Date Comments Appointment 03/17/2025 Encounter Details Date Type Department Care Team (Late st Contact Info) Description 03/17/2025 Telephone [facility] - Ophthalmology [address] [place] [address] Marshall Hills MD [address] [place] [address] [place] [address] Appointment Social History Tobacco Use Types Packs/Day Years Used Date Smoking Tobacco: Never Assessed PHQ-2 Answer Date Recorded Patient Health Questionnaire-2 Score 1 03/16/2025 Comments Unknown Sex and Gender Information Value Date Recorded Sex Assigned at Not on file Legal 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 documented in this encounter Plan of Treatment Not on file documented as of this encounter Visit Diagnoses Not on filedocumented in this encounter Care Teams Director Dance Relationship Specialty Start Date End Date Chelsi Acuna, GENERAL I FARMWORKER-DCS ENGINEER [address] [place] [address] Dr Molina [address] [place] [phone] PCP - General 01/04/15 documented as of this encounter
--- OUTSIDE RECORDS SUMMARY | 2025-07-19 08:28 | XMS_ITS | Encounter Summary ---
Author Organization [facility] Address [address] [place] [address] Care Team Providers Care Pit Supervisor Name Role Phone Dana Roy MD Primary Care Provider [phone] Encounter Details Date Type Department Care Team (Late st Contact Info) Description 07/18/2025 Orders Only [facility] Oncology and Hematology - [place] [address] [place] [address] [facility] [address] [place] [address] Phi Yates MD [address] [facility] [address] [place] [address] Leukocytosis, unspecified type Social History Tobacco Use Types Packs/Day Years Used Date Smoking Tobacco: Former Cigarettes 0.2 1 Q uit: 10/03/2024 Alcohol Use Standard Drinks/Week Comments Yes 0 (1 standard drink = 0.6 oz pure alcohol) occassionally holidays/ special occasions Comments Unknown Sex and Gender Information Value Date Recorded Sex Assigned at Not on file Legal Sex Female 4: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
--- OUTSIDE RECORDS SUMMARY | 2025-07-19 08:28 | XMS_ITS | Clinical Summary ---
Author Organization [facility] [employer] Address [address] [place] [address] Care Team Providers Care Floor Nurse Name Role Phone Chelsi Acuna HEAD OF LOSS PREVENTION-RECENTERER Primary Care Provider Source Comments [facility],non-owned Affiliates and Associated Physician Practices is amultiple site organization consisting of ambulatory clinics and hospital sitesin [place], [place], [place] and [place]. This disclosure is being madepursuant to the Care Everywhere program and may not contain all information available regarding this patient. Last updated 18.[facility] [employer] Allergies Active Allergy Reactions Criticality Noted Date Comments Clindamycin Urticaria,Unknown High 12/22/2017 Sulfa Antibiotics Urticaria,Anaphylaxis,Unknown High 2015 Sulfa Drugs Urticaria Medium 03/16/2025 Sulfacetamide Anaphylaxis High 06/28/2025 Medications * Be aware that medications may not be up to date on this document. Alwaysverify current medications with the patient. amLODIPine (Norvasc) 5 MG tablet Take 1 (one) tablet by mouth once daily Active ARIPiprazole (Abilify) 20 MG tablet Take 1 (one) tablet by mouth at bedtime Active aspirin (Aspirin) 81 MG chew tablet Take 1 (one) tablet by mouth once daily 5 Active Qulipta 60 MG TABS Take 1 (one) tablet by mouth once daily 4 Active atorvastatin (Lipitor) 40 MG tablet Take 1 (one) tablet by mouth once daily 5 Active Boric Acid 600 MG SUPP Insert into the vagina at bedtime Active cholestyramine light (Questran Light; Prevalite) 4 g packet Take 4 (four) g by mouth as needed 5 Active Continuous Glucose Sensor (Dexcom G7 Sensor) [facility] [place]LC[place] 5 Active desvenlafaxine succinate ER 24hr (Pristiq) 100 MG tablet Take 1 (one) tablet by mouth once daily Active dicyclomine (Bentyl) 10 MG capsule Take 1 (one) capsule by mouth 3 times daily 4 Active Trulicity 0.75 MG/0.5ML injection Inject 0.75 (three-quarters) mg subcutaneously every 7 days (once a week) 5 Active Jardiance 25 MG tablet Take 1 (one) tablet by mouth once daily Active HYDROcodone-ac etaminophen ([place]) 5-325 MG tablet Take 2 (two) tablets by mouth every 6 hours as needed for Pain Active hydrOXYzine HCl (Atarax) 25 MG tablet Take 1 (one) tablet by mouth 3 times daily Active ibuprofen (Motrin) 800 MG tablet Take 1 (one) tablet by mouth every 8 hours as needed Active insulin aspart (NovoLOG) vial 120 UNIT (1.2 ML) VIA CONTINUOUS SUBCUTANEOUS INFUSION DAILY VIA INSULIN PUMP Active Tresiba FlexTouch 100 UNIT/ML pen 45 UNIT (0.45 ML) SUBCUTANEOUSLY DAILY NEEDED FOR INSULIN PUMP MALFUNCTION 4 Active BD Pen Needle Ana 2nd Gen 32G X 4 MM [facility] [place] DAILY 5 Active lisinopril (Prinivil; Zestril) 5 MG tablet Take 1 (one) tablet by mouth once daily 5 Active metFORMIN (Glucophage) 1000 MG tablet Take 1 (one) tablet by mouth 2 times daily Active metoprolol succinate XL 24hr (Toprol XL) 50 MG tablet Take 1 (one) tablet by mouth once daily Active norethindrone 0.35 MG tablet Take 1 (one) tablet by mouth once daily Active omeprazole (PriLOSEC) 40 MG capsule Take 1 (one) capsule by mouth 2 times daily, before breakfast and supper 4 Active ondansetron, disintegrating , (Zofran ODT) 4 MG tablet Take 1 (one) tablet by mouth every 8 hours as needed for nausea and vomiting. Active Prenat-Fe Bisgly-FA-w/o Vit A (Nestabs) 32-1 MG TABS Take 1 tablet by mouth once daily Active spironolactone (Aldactone) 100 MG tablet Take 2 (two) tablets by mouth once daily Active Ubrelvy 100 MG tablet 1 (one) tablet 4 Active Bacillus Coagulans-Inul in (Probiotic) 1-250 BILLION-MG CAPS Take 1 tablet by mouth once daily Active polyethylene glycol 3350 (Miralax) 17 g packet Take 17 (seventeen) g by mouth once daily as needed for Constipation 5 Active fluconazole (Diflucan) 150 MG tablet Take 1 (one) tablet by mouth every 7 days Active Active Problems No known active problems Encounters Date Type Department Care Team Description 06/28/2025 11:59 PM CDT Anesthesia Event [facility] [address] [place] [address] Guero Sequeira DO 06/28/2025 8:30 AM CDT - 06/28/2025 11:59 PM CDT Hospital Encounter [facility] PAT [address] [place] [id number] Unknown, Provider Discharge Disposition: Home or Self Care 06/28/2025 Travel 06/08/2025 10:40 AM CDT Clinical Support [facility] - Ophthalmology [address] [place] [phone] Marshall Hills MD Combined form of senile cataract, unspecified laterality (Primary Dx) 06/08/2025 10:35 AM CDT Clinical Support [facility] - Ophthalmology [address] [place] [phone] Marshall Hills MD Combined form of senile cataract, unspecified laterality (Primary Dx) 06/08/2025 9:45 AM CDT Office Visit [facility] - Ophthalmology [address] [place] [phone] Marshall Hills MD Combined form of senile cataract, unspecified laterality (Primary Dx); Corneal decompensation; Combined forms of age-related cataract of both eyes 06/08/2025 Travel 05/24/2025 Telephone [facility] - Centralized Scheduling [address] [place] [address] Marshall Hills MD Surgery Scheduling 04/28/2025 Orders Only [facility] [address] [place] [address] Abram Washington MD from Last 3 Months Social History Tobacco Use Types Packs/Day Years Used Date Smoking Tobacco: Former Cigarettes 0.3 1 2 023 - 2023 Smokeless Tobacco: Never Tobacco Cessation:Counseling Given: Not Answered Alcohol Use Standard Drinks/Week Comments Not Currently 0 (1 standard drink = 0.6 oz pur e alcohol) social PHQ-2 Answer Date Recorded Patient Health Questionnaire-2 Score 1 03/16/2025 Comments Unknown Sex and Gender Information Value Date Recorded Sex Assigned at Not on file 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 Gender Identity Not on file Sexual Orientation Not on file Last Filed Vital Signs Vital Sign Reading Time Taken Comments Blood Pressure 134/69 06/28/2025 8:34 AM CDT Pulse 112 06/28/2025 8:34 AM CDT Temperature 37 C (98.6 F) 06/28/2025 8:34 AM CDT Respiratory Rate 18 06/28/2025 8:34 AM CDT Oxygen Saturation 94% 06/28/2025 8:34 AM CDT Inhaled Oxygen Concentration - - Weight 166.8 kg (367 lb 11.2 oz) 06/28/2025 8:34 AM CDT Height 170.2 cm (5' 7) 06/28/2025 8:34 AM CDT Body Mass Index 57.59 06/28/2025 8:34 AM CDT Plan of Treatment Health Maintenance Due Date Last Done Comments MAMMOGRAM 1983 HIV SCREENING 1998 HEPATITIS C SCREENING 11/20/2001 DTAP/TDAP/TD VACCINES (1 - Tdap) 2002 HEPATITIS B VACCINE (1 of 3 - 19+ 3-dose series) 2002 PAP SMEAR 2004 HPV VACCINE (1 - 3-dose SCDM series) 2010 COVID-19 VACCINE ( season) 2025 INFLUENZA VACCINE (#1) 2025 , 10/15/2023, 10/08/2023, Additional history exists ZOSTER VACCINE (1 of 2) 2033 DEPRESSION SCREENING Completed 03/16/2025 HIB VACCINE Aged Out No longer eligi ble based on patient's age to complete this topic MENINGOCOCCAL (Group B) VACCINE SHARED DECISION-MAKING Aged Out No longer eligible based on patient's age to complete this topic MENINGOCOCCAL GROUPS A/C/Y/W VACCINE Aged Out No longer eligible based on patient's age to complete this topic PNEUMOCOCCAL VACCINE Aged Out No long er eligible based on patient's age to complete this topic Procedures Procedure Name Priority Date/Time Associated Diagnosis Comments CORNEAL TOPOGRAPHY UNI/BI Routine 06/08/2025 12:34 PM CDT Combined form of senile cataract, unspecified laterality IOL MASTER Routine 06/08/2025 10:30 AM CDT Combined form of senile cataract, unspecified laterality from Last 3 Months Results * CORNEAL TOPOGRAPHY UNI/BI (06/08/2025 12:34 PM CDT) Anatomical Region Laterality Modality Head External-Camera Photography Narrative 06/08/2025 12:34 PM CDT Attempted, unable to obtain due to poor corneal condition us Marshall Hills MD OPHTHALMOLOGY SCHED ORD W PAC S Final Result * IOL MASTER (06/08/2025 10:30 AM CDT) Anatomical Region Laterality Modality External-Camera Photography Narrative 06/15/2025 10:35 AM CDT Images from the original result were not included. OS unable to obtain, pt with diffuse corneal haze. Will need to use OD as reference Biometry was performed and reviewed for IOL power calculation using IOL master for lens selection during surgery. us Marshall Hills MD OPHTHALMOLOGY SCHED ORD W PAC S Edited Result - Final from Last 3 Months Insurance MEDICAID - OUT OF STATE AET [employer]BETTER Care Teams Floor Nurse Relationship Specialty Start Date End Date Chelsi Acuna, HEAD OF LOSS PREVENTION-RECENTERER [address] [place] [address] Dr Molina [address] [place] [id number] [facility] - General 01/04/15
--- OUTSIDE RECORDS SUMMARY | 2025-07-19 08:28 | XMS_ITS | Patient Health Record ---
Author Organization [facility] Address [address] [place] [address] Care Team Providers Care Principal Data Architect Name Role Phone Shaun Whitaker Primary Care Provider Allergies Allergen (clinical drug ingredient) Drug/Non Drug Allergy documented on EMR Reaction Allergy Type Onset Date Status SULFA anaphylaxis Drug Allergy Activ e Reason For Referral No Information Medications Medication SIG (Take, Route, Frequency, Duration) Notes Start Date End Date Status Sertraline HCl 100 MG 1 tablet Orally On ce a day; Duration: 30 days Active Meloxicam 15 MG 1 tablet Orally Once a day Active Ar 128 5 % 1 application Ophtha lmic Once a day Active Tears Plus 1.4-0.6 % Ophthalmic Active Briseyda 0.35 MG 1 tablet Orally Once a day Active - 1 tablet Orally Once a day Active Wcdjypehnv-LTYM-Myzuhldp 50-325-40 MG 1 capsule as needed Orally every 4 hrs Active Metoprolol Succinate ER 50 MG 1 tablet Orally Once a day A ctive Social History Tobacco Use: Social History Observation Description Date Details (start date - stop date) Former Smoker NA - NA Dont use, Tobacco Use/Smoking Question Answer Notes Are you a former smoker How long has it been since you last smoked? 5-10 years Additional Findings: Tobacco Non-User Ex-cigaret te smoker Problems Problem Type SNOMED Code ICD Code Onset Dates Problem Status W/U Status Risk Notes Problem Posttraumatic stress disorder (88784225) PTSD (post-traumatic stress disorder) (F43.10) Active confirmed Problem Anxiety (86723591) Anxiety (F41.9) Active confirmed Problem Depressive disorder (disorder) (28632935) Depression, unspecified depression type (F32.9) Active confirmed Problem Morbid obesity (235809006) Morbid obesity due to excess calories (E66.01) Active confirmed Plan Of Treatment No Information Insurance Providers Payer Name Payer Address Payer Phone Subscriber Number Group Number Insured Name Patient Relationship to Insured Coverage Start Date Coverage End Date [facility] [address] [place] [address] [id number] [phone] Angela Duncan Self - patient is the insured 7 [facility] [address] [address] [place] [address] [id number] Angela Duncan Self - patient is the insured 4 Medical (General) History Medical History History ICD Code PTSD Anxiety Depression Migraines Sleep apnea Obesity Surgical History Surgery Date(Month/Year) cholecystectomy 03/2016 left fallopian tube and left ovarian cys t removal 12/2015
== END 2025-07-19 08:24 | disposition home or self-care (01) ==
PROVIDERS: Emergency Provider Nurse Practitioner
DX: J32.9 Chronic sinusitis, unspecified (principal); F17.290 Nicotine dependence, other tobacco product, uncomplicated; E11.9 Type 2 diabetes mellitus without complications; Z79.84 Long term (current) use of oral hypoglycemic drugs; Z79.85 Long-term (current) use of injectable non-insulin antidiabetic drugs; I10 Essential (primary) hypertension; E78.5 Hyperlipidemia, unspecified; K21.9 Gastro-esophageal reflux disease without esophagitis; F41.9 Anxiety disorder, unspecified; F32.A Depression, unspecified; Z86.73 Personal history of transient ischemic attack (TIA), and cerebral infarction without residual deficits
CPT/HCPCS: 99213; G0463